=== PATIENT | male | born 1935 | race Caucasian/White ===

== ENCOUNTER 2022-05-07 13:13 | Inpatient (IN) | payer OTHER ==
--- OUTSIDE RECORDS SUMMARY | 2022-05-07 13:28 | XMS REPORT | Continuity of Care Document ---
:1935 Author Organization [facility] t Address [address] [place] [address] Care Team Providers Name Role Phone ANDRES CHRISTINA Primary Care Physician Unavailable Sonja Vale RN Attending Clinician Unavailable CHAITANYA HATCH Attending Clinician Unavailable Jamari Floyd MD Attending Clinician Chaitanya Hatch MD Attending Clinician MALIK GRANADOS Attending Clinician Unavailable Malik Granados MD Attending Clinician Yovani Bautista DO Attending Clinician YOVANI BAUTISTA Attending Clinician Unavailable CARIN SOLIS Attending Clinician Unavailable Beba Elizabeth RN Attending Clinician Unavailable JESSICA OWEN Attending Clinician Unavailable Garett Armas MD Attending Clinician Jessica Owen DO Attending Clinician MONICO MARIEE Attending Clinician Unavailable Monico Lucas Attending Clinician Morgan Lazar MD Attending Clinician Fahad Cano Attending Clinician FAHAD GRIGGS Attending Clinician Unavailable Bonny Latif RN Attending Clinician Veronica FIRING PIN GAUGER, Marlena R Attending Clinician GARETT ARMAS Attending Clinician Unavailable Doctor Unassigned, [place] Attending Clinician Unavailable Gramm FIRING PIN GAUGER, Donna A Attending Clinician DONNA GUNDERSON A Attending Clinician Unavailable CHAITANYA HATCH Admitting Clinician Unavailable Holden MUNOZ, Chaitanya Admitting Clinician MALIK GRANADOS Admitting Clinician Unavailable YOVANI BAUTISTA Admitting Clinician Unavailable CARIN SOLIS Admitting Clinician Unavailable JESSICA OWEN Admitting Clinician Unavailable Jessica Owen DO Admitting Clinician MONICO MARIEE Admitting Clinician Unavailable Cady MUNOZ, Morgan Admitting Clinician Garett Armas MD Admitting Clinician GARETT ARMAS Admitting Clinician Unavailable Payers Payer Name Policy Type Policy Number Effective Date Expiration Date S ource Problems Condition Condition Condition Status Onset Resolution Last Treating Co mments Source Name Details Category Date Date Treatment Clinician Date Dizziness Dizziness Disease Active Uni vers 7-26 ity of 00:00: [place] 00 Medical Branch Chronic Chronic Disease Active Univers atrial atrial 7-01 ity of fibrill[place] fibrill[place] 00 [place] Other Other Disease Active Univers chest pain chest pain 6-27 it y of 00:00: [place] 00 Medical Branch COVID-19 COVID-19 Disease Active Unive rs virus RNA virus RNA 6-27 ity of test test 00:00: [place] result result 00 Medical positive positive Branch at limit at limit of of detection detection Atrial Atrial Disease Active 2020-05 Univers fibrillati fibrillati 0-04 it y of on with on with 00:00: [place] RVR RVR 00 Medical Branch Atypical Atypical Disease Active Unive rs chest pain chest pain 2-04 it y of 00:00: [place] 00 Medical Branch Coronary Coronary Disease Active Unive rs artery artery 2-04 ity of disease disease 00:00: [place] involving involving 00 Medi [place] Branch 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 S/P CABG Disease Active Unive rs (coronary (coronary 2-04 ity of artery artery 00:00: [place] bypass bypass 00 Medical graft) graft) Branch Essential Essential Disease Active Uni vers hypertensi hypertensi 2-04 it y of on on 00:00: Medical Branch Dyslipidem Dyslipidem Disease Active U nivers ia ia 2-04 ity of 00:00: [place] [facility] Chronic Chronic Disease Active Univers 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:00: [place] failure failure 00 Medical Branch PAF PAF Disease Active Univers (paroxysma (paroxysma 2-04 it y of l atrial l atrial 00:00: [place] fibrillati fibrillati 00 Me dical on) on) Branch Pulmonary Pulmonary Disease Active Uni vers hypertensi hypertensi 2-04 it y of on on 00:00: Medical Branch 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) Bran ch 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 00:00: [place] carotid carotid 00 Medical arteries arteries Branch 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 00:00: [place] carotid carotid Medical arteries arteries Branch HF (heart HF (heart Disease Active Uni vers failure) failure) 2-03 ity of 00:00: [place] 00 Medical Branch Acute Acute Disease Active 2016-05 Univers exacerbati exacerbati 2-04 it y of on of CHF on of CHF 00:[place] (congestiv (congestiv 00 Me dical e heart e heart Branch failure) failure) Obesity Obesity Disease Active Univers (BMI (BMI 3-22 ity of 30-39.9) 30-39.9) 00:00: [place] [facility] Headache Headache Disease Active 2015-05 Unive rs 2-12 ity of 00:00: [place] 00 Medical Branch Transient Transient Disease Active 2015-05 Uni vers alteration alteration 2-12 it y of of of 00:00: [place] awareness awareness 00 [facility] Branch Allergies, Adverse Reactions, Alerts Allergy Allergy Status Severity Reaction(s) Onset Inactive Treating Comm ents Source Name Type Date Date Clinician LORATADI DRUG Active ITCHING Univers NE INGREDI 2-18 ity of 00:00: [place] 00 Medical Branch Loratadi Propensi Active Itching Unive rs ne ty to 2-18 ity of adverse 00:00: [place] reaction 00 Medical s Branch Morphine Propensi Active Other - See 2016-05 Headache Univers ty to comments 2-04 ity of adverse 00:00: [place] reaction 00 Medical s Branch Sulfa Propensi Active Nausea 2016-05 Univers (Sulfona ty to and/or 2-04 ity of mide adverse Vomiting 00:00: [place] Antibiot reaction 00 Medica l ics) s Branch MORPHINE DRUG Active Other-Cmnt 2016-05 Univ ers INGREDI 2-04 ity of 00:00: [place] 00 Medical Branch SULFA Drug Active N/V 2016-05 Univers (SULFONA Class 2-04 ity of MIDE 00:00: [place] ANTIBIOT 00 Medical ICS) Branch Sulfa Propensi Active Nausea 2016-05 Univers (Sulfona ty to and/or 2-04 ity of mide adverse Vomiting 00:00: [place] Antibiot reaction 00 Medica l ics) s Branch Social History Social Habit Start Date Stop Date Quantity Comments Source History of Current smoker University of tobacco use [place] [facility] History SDKY Food 2022-02-12 2022-02-12 1 Univers ity of Worry 00:00:00 00:00:00 [place] [facility] History SDOH Food 2022-02-12 2022-02-12 1 Univers ity of Scarcity 00:00:00 00:00:00 [place] [facility] History SDOH 2022-02-12 2022-02-12 2 University o f Transport Med 00:00:00 00:00:00 [place] Medic al Branch History SDOH 2022-02-12 2022-02-12 2 University o f Transport Non-Med 00:00[facility]00 [facility] 2022-01-13 2022-01-23 Not sure University of SARS-CoV-2 00:00:00 05:03:00 [facility] (event) [place] Alcohol intake 2022-01-23 2022-01-23 0 /d University of 00:00:00 00:00:00 [facility] Tobacco use and 2017-10-06 2017-10-06 Smokeless tobacco Un iversity of exposure 00:00:00 00:00:00 non-user [facility] Sex Ass[birth year] At [birth year] Universit y of 00:00:00 00:00:00 [facility] Smoking Status Start Date Stop Date Source Ex-smoker 2017-10-06 00:00:00 2017-10-06 00:00:00 [facility] Medications Ordered Filled Start Stop Current Ordering Indication Dosage Frequency Signature Comments Components Source Medication Medication Date Date Medication? Clinician (SIG) Name Name rosuvastati Yes 5mg 5 mg, Unive rs n (CRESTOR) - Oral, QHS, it y of tablet 5 mg 02:00: First dose 00 on [facility] 02/11/22 at [place] 2100, Until Discontinu ed, Routine rivaroxaban 2022- Yes [id number] 20mg Take 1 Uni vers (XARELTO) 02-12 tablet by ity of 20 mg 00:00: 04:59 mouth in [place] tablet 00 :00 the Medical morning. [place] Indication s: prevention of thromboemb olism in paroxysmal atrial fibrillati on rivaroxaban 2022- Yes [id number] 20mg Take 1 Uni vers (XARELTO) 02-12 tablet by ity of 20 mg 00:00: 04:59 mouth in [place] tablet 00 :00 the Medical morning. Branch Indication s: prevention of thromboemb olism in paroxysmal atrial fibrillati on levothyroxi 2021- Yes [id number] 50ug Take 1 Univers ne 50 mcg 02-12 tablet by ity of tablet 00:00: 05:59 mouth [place] 00 :00 every Medical morning [place] for 90 days. pantoprazol 2021- Yes [id number] 40mg Take 1 Univers e 40 mg EC 02-12 tablet by ity of tablet 00:00: 05:59 mouth in [place] 00 :00 the Medical morning Branch for 90 days. levothyroxi 2021- Yes [id number] 50ug Take 1 Univers ne 50 mcg 02-12 tablet by ity of tablet 00:00: 05:59 mouth [place] 00 :00 every Medical morning Branch for 90 days. pantoprazol 2021- Yes [id number] 40mg Take 1 Univers e 40 mg EC 02-12 tablet by ity of tablet 00:00: 05:59 mouth in [place] 00 :00 the Medical morning Branch for 90 days. ALPRAZOLAM Yes 1mg Take 1 mg [place] (XANAX XR 9-20 by mouth ity of ORAL) 19:05: daily. [place] 35 Medical Branch Ascorbic 0 Yes 1000mg Take 1,000 U nivers Acid 1,000 9-20 mg by ity of mg TbSR 19:05: mouth 2 [place] 35 (two) Medical times Branch daily. Cholecalcif Yes 400U Take 400 [place] joanne, 9-20 Units by ity of Vitamin D3, 19:05: mouth [place] 400 unit 35 daily. Medical capsule Branch cyanocobala Yes 5000ug Take 5,000 Univers min, 9-20 mcg by ity of vitamin 19:05: mouth [place] B-12, 5,000 35 daily. Medica l mcg TbDL Branch digoxin 125 Yes 125ug Take 125 U nivers mcg tablet 9-20 mcg by ity of 19:05: mouth [place] 35 daily. Medical Branch magnesium Yes 400mg Take 400 Uni vers oxide 400 9-20 mg by ity of mg tablet 19:05: mouth [place] 35 daily. Medical Branch tamsulosin Yes .4mg Take 0.4 Uni vers 0.4 mg 24 9-20 mg by ity of hr capsule 19:05: mouth [place] 35 daily. Medical Branch traMADOL 50 0 Yes 100mg Take 100 U nivers mg tablet 9-20 mg by ity of 19:05: mouth [place] 35 every 8 Medical (eight) Branch hours as needed for Pain (scale 4-6) or Pain (scale 7-10). May take 1 to 2 tablets Q8H as needed for pain glimepiride 0 Yes 1mg Take 1 mg U nivers 1 mg tablet 9-20 by mouth ity of 19:05: in the [place] [address] morning Medical and 1 mg Branch at noon and 1 mg in the evening. Take with meals. gabapentin Yes 100mg Take 100 [place] 100 mg 9-20 mg by ity of capsule 19:05: mouth 2 [place] [address] (two) Medical times Branch daily. torsemide Yes Take by Unive rs 100 mg 9-20 mouth. ity of tablet 19:05: [place] [facility] Branch lisinopriL Yes 10mg Take 10 mg U nivers 10 mg 9-20 by mouth ity of tablet 19:05: in the [place] [address] morning. Medical Branch isosorbide Yes 30mg Take 30 mg U nivers mononitrate 9-20 by mouth. ity of 30 mg 24 hr 19:05: [place] tablet Medical Branch ALPRAZOLAM Yes 1mg Take 1 mg [place] (XANAX XR 9-20 by mouth ity of ORAL) 19:05: daily. [place] [address] Medical Branch Ascorbic Yes 1000mg Take 1,000 U nivers Acid 1,000 9-20 mg by ity of mg TbSR 19:05: mouth 2 [place] [address] (two) Medical times Branch daily. Cholecalcif Yes 400U Take 400 [place] joanne, 9-20 Units by ity of Vitamin D3, 19:05: mouth [place] 400 unit 35 daily. Medical capsule Branch cyanocobala Yes 5000ug Take 5,000 Univers min, 9-20 mcg by ity of vitamin 19:05: mouth [place] B-12, 5,000 35 daily. Medica l mcg TbDL Branch digoxin 125 Yes 125ug Take 125 U nivers mcg tablet 9-20 mcg by ity of 19:05: mouth [place] 35 daily. Medical Branch magnesium Yes 400mg Take 400 Uni vers oxide 400 9-20 mg by ity of mg tablet 19:05: mouth [place] 35 daily. Medical Branch tamsulosin Yes .4mg Take 0.4 Uni vers 0.4 mg 24 9-20 mg by ity of hr capsule 19:05: mouth [place] 35 daily. Medical Branch traMADOL 50 Yes 100mg Take 100 U nivers mg tablet 9-20 mg by ity of 19:05: mouth [place] [address] every 8 Medical (eight) Branch hours as needed for Pain (scale 4-6) or Pain (scale 7-10). May take 1 to 2 tablets Q8H as needed for pain glimepiride 0 Yes 1mg Take 1 mg U nivers 1 mg tablet -20 by mouth ity of 19:05: in the [place] [address] morning Medical and 1 mg Branch at noon and 1 mg in the evening. Take with meals. gabapentin 0 Yes 100mg Take 100 [place] 100 mg 9-20 mg by ity of capsule 19:05: mouth 2 [place] [address] (two) Medical times Branch daily. torsemide Yes Take by [facility] rs 100 mg -20 mouth. ity of tablet 19:05: [place] [address] Medical Branch lisinopriL Yes 10mg Take 10 mg U nivers 10 mg -20 by mouth ity of tablet 19:05: in the [place] [address] morning. Medical Branch isosorbide Yes 30mg Take 30 mg U nivers mononitrate 20 by mouth. ity of 30 mg 24 hr 19:05: [place] [address] Medical Branch NaCl 0.9% 2021- No 500mL at 250 Univ ers (NS) bolus 02-11 mL/hr, 500 it y of infusion 17:45: 17:43 mL, IV [place] 500 mL 00 :48 Piggyback, Medical ONCE, 1 Branch dose, On Thu02/11/22 at 1245, STAT nitroglycer Yes .3mg 0.3 mg, Uni vers in 02-11 Sublingual ity of (NITROSTAT) 16:59: , Q5MIN [place] sublingual 43 PRN, Medical tablet 0.3 Starting Branc h mg on Thu02/11/22 at 1159, Until Discontinu ed, Routine, Chest pain levothyroxi 2021- No 50ug Take 50 [place] ne 50 mcg 02-11 mcg by ity of tablet 16:27: 00:00 mouth [place] 03 :00 every Medical morning. Branch pantoprazol 2021- No 40mg Take 40 mg Univers e 40 mg EC 02-11 by mouth ity of tablet 16:27: 00:00 daily. [place] 03 :00 Medical Branch rosuvastati No 5mg Take 5 mg Univers n 5 mg 02-11 by mouth ity of tablet 16:27: 00:00 at [place] 03 :00 bedtime. Medical Branch rivaroxaban No 20mg Take 20 mg Univers (XARELTO) 02-11 by mouth. ity of 20 mg 16:27: 00:00 [place] tablet 03 :00 Medical Branch aspirin Yes 81mg 81 mg, Univers chewable 02-11 Oral, ity of tablet 81 14:00: DAILY, [place] mg 00 First dose Medical on [facility] 02/11/22 at 0900, Until Discontinu ed, Routine rivaroxaban Yes 20mg 20 mg, Univ ers (XARELTO) 02-11 Oral, ity of tablet 20 14:00: DAILY, [place] mg 00 First dose Medical on [facility] 02/11/22 at 0900, Until Discontinu ed, Routine pantoprazol Yes 40mg 40 mg, Univ ers e 02-11 Oral, ity of (PROTONIX) 14:00: DAILY, [place] EC tablet 00 First dose Medi anabell 40 mg on [facility] 02/11/22 at 0900, Until Discontinu ed, Routine digoxin Yes 125ug 125 mcg, Unive rs (LANOXIN) 02-11 Oral, ity of tablet 125 14:00: DAILY, [place] mcg 00 First dose Medical on [facility] 02/11/22 at 0900, Until Discontinu ed, Routine aspirin No 325mg 325 mg, Unive rs tablet 325 02-11 Oral, ity of mg 14:00: 07:17 DAILY, [place] 00 :21 First dose Medical on [facility] 02/11/22 at 0900, Until Discontinu ed, Routine Sliding Yes Subcutaneo Univ ers Scale 02-11 us, TID ity of Insulin - 13:00: MEALS+HS, [place] Lispro 00 First dose Medical (HumaLOG) + on [facility]sbg 02/11/22 at Testing 0800, Until Discontinu ed, Routine levothyroxi Yes 50ug 50 mcg, Uni vers ne 02-11 Oral, ity of (SYNTHROID) 11:00: QAM-0600, [place] tablet 50 00 First dose Medi anabell mcg on Thu02/11/22 at 0600, Until Discontinu ed, Routine NaCl 0.9% 2021- No 500mL at 999 [facility] ers (NS) bolus 02-1120 mL/hr, 500 it y of infusion 08:45: 10:28 mL, IV [place] 500 mL 00 :00 Piggyback, Medical ONCE, 1 Branch dose, On Thu02/11/22 at 0345, STAT acetaminoph Yes 650mg 650 mg, [place] en 02-11 Oral, ity of (TYLENOL) 05:16: Q6HPRN, [place] tablet 650 18 Starting Medic al mg on Thu02/11/22 at 0016, Until Discontinu ed, Routine, Pain (scale 1-3) iopamidol 2021- No [id number] 80mL 80 mL, U nivers (ISOVUE 02-11 Intravenou ity o f 370-500 mL) 02:00: 02:00 s, ONCE, 1 [place] injection 00 :00 dose, On Medica l 80 mL Thu02/10/22 at 2100, Routine FUROSEMIDE 2021- No 40mg Take 40 mg Univers ORAL 02-11 by mouth 2 ity of 01:07: 00:00 (two) [place] 48 :00 times Medical daily. Branch NaCl 0.9% 2021- No 250mL at 100 [facility] ers (NS) IV 02-11-20 mL/hr, IV ity of infusion 00:45: 15:06 Infusion, [place] 250 mL 00 :15 CONTINUOUS Medical , Starting Branch on Thu02/10/22 at 1945, Until Thu02/11/22 at 1006, Routine nitroglycer Yes [id number] .3mg Place 1 Univers in 0.3 mg 9-20 tablet ity of sublingual 00:00: under the [place] tablet 00 tongue Medical every 5 Branch (five) minutes as needed for Chest pain for up to 90 doses. nitroglycer Yes [id number] .3mg Place 1 Univers in 0.3 mg 9-20 tablet ity of sublingual 00:00: under the [place] tablet 00 tongue Medical every 5 Branch (five) minutes as needed for Chest pain for up to 90 doses. rosuvastati 2021- Yes [id number] 5mg Take 1 Univers n 5 mg 9-20 12-20 tablet by ity of tablet 00:00: 05:59 mouth at [place] 00 :00 bedtime Medical for 90 Branch days. rosuvastati 2021- Yes [id number] 5mg Take 1 Univers n 5 mg 9-20 12-20 tablet by ity of tablet 00:00: 05:59 mouth at [place] 00 :00 bedtime Medical for 90 Branch days. FENTanyl PF 2021- No 25ug 25 mcg, [place] (SUBLIMAZE 02-10 Slow IV ity o f (PF)) 23:45: 00:12 Push, [place] injection 00 :00 ONCE, 1 Medical 25 mcg dose, On Branch [facility] 02/10/22 at 1845, STAT furosemide No 40mg 40 mg, IV U nivers (LASIX) 01-23 Push, ity of injection 11:30: 11:26 ONCE, 1 [place] 40 mg 00 :00 dose, On [facility] 01/23/22 Branch at 0630, JOCELYN nirmatrelvi Yes [id number] 2{tbl} Take 2 Univers r-ritonavir 01-23 [id number] tablets by i ty of (PAXLOVID, 00:00: mouth in [place] EUA,) 00 the Medical 150-100 mg morning Branch tablet and 2 tablets in the evening. nirmatrelvi 2021- No [id number] 2{tbl} Take 2 Univers r-ritonavir 01-23 [id number] tablets by ity of (PAXLOVID, 00:00: 00:00 [place] EUA,) 00 :00 the Medical 150-100 mg morning Branch tablet and 2 tablets in the evening. ibuprofen 2021- No 600mg 600 mg, Uni vers (IBU) 01-06 Oral, ity of tablet 600 11:30: 11:23 ONCE, 1 [place] mg 00 :00 dose, On Medical [facility] 01/06/22 at 0630, JOCELYN iopamidol 2021- No [id number] 70mL 70 mL, Univers (ISOVUE 12-18 Intravenou ity o f 370-500 mL) 01:30: 01:30 s, ONCE, 1 [place] injection 00 :00 dose, On Medica l 70 mL Tue Branch 12/17/21 at 2030, Routine ALPRAZOLAM Yes 1mg Take 1 mg [place] (XANAX XR 7-01 by mouth ity of ORAL) 12:24: daily. [place] [address] Medical Branch Ascorbic Yes 1000mg Take 1,000 U nivers Acid 1,000 7-01 mg by ity of mg TbSR 12:24: mouth 2 [place] [address] (two) Medical times Branch daily. Cholecalcif Yes 400U Take 400 [place] joanne, 7-01 Units by ity of Vitamin D3, 12:24: mouth [place] 400 unit 33 daily. Medical capsule Branch cyanocobala Yes 5000ug Take 5,000 Univers min, 7-01 mcg by ity of vitamin 12:24: mouth [place] B-12, 5,000 33 daily. Medica l mcg TbDL Branch digoxin 125 Yes 125ug Take 125 U nivers mcg tablet 7-01 mcg by ity of 12:24: mouth [place] 33 daily. Medical Branch levothyroxi Yes 50ug Take 50 Uni vers ne 50 mcg 7-01 mcg by ity of tablet 12:24: mouth [place] [address] every Medical morning. Branch magnesium Yes 400mg Take 400 Uni vers oxide 400 7-01 mg by ity of mg tablet 12:24: mouth [place] 33 daily. Medical Branch pantoprazol Yes 40mg Take 40 mg Univers e 40 mg EC 7-01 by mouth ity o f tablet 12:24: daily. [place] [address] Medical Branch tamsulosin 0 Yes .4mg Take 0.4 Uni vers 0.4 mg 24 7-01 mg by ity of hr capsule 12:24: mouth [place] 33 daily. Medical Branch traMADOL 50 Yes 100mg Take 100 U nivers mg tablet 7-01 mg by ity of 12:24: mouth [place] 33 every 8 Medical (eight) Branch hours as needed for Pain (scale 4-6) or Pain (scale 7-10). May take 1 to 2 tablets Q8H as needed for pain glimepiride 0 Yes 1mg Take 1 mg U nivers 1 mg tablet 7-01 by mouth 2 it y of 12:24: (two) [place] [address] times Medical daily with Branch meals. gabapentin Yes 100mg Take 100 [place] 100 mg 7-01 mg by ity of capsule 12:24: mouth 2 [place] [address] (two) Medical times Branch daily. rosuvastati Yes 5mg Take 5 mg U nivers n 5 mg 7-01 by mouth ity of tablet 12:24: at [place] [address] bedtime. Medical Branch FUROSEMIDE Yes 40mg Take 40 mg U nivers ORAL 7-01 by mouth 2 ity of 12:24: (two) [place] [address] times Medical daily. Branch ALPRAZOLAM Yes 1mg Take 1 mg [place] (XANAX XR 7-01 by mouth ity of ORAL) 12:24: daily. [place] [address] Medical Branch Ascorbic 0 Yes 1000mg Take 1,000 U nivers Acid 1,000 7-01 mg by ity of mg TbSR 12:24: mouth 2 [place] [address] (two) Medical times Branch daily. Cholecalcif Yes 400U Take 400 [place] joanne, 7-01 Units by ity of Vitamin D3, 12:24: mouth [place] 400 unit 33 daily. Medical capsule Branch cyanocobala Yes 5000ug Take 5,000 Univers min, 7-01 mcg by ity of vitamin 12:24: mouth [place] B-12, 5,000 33 daily. Medica l mcg TbDL Branch digoxin 125 0 Yes 125ug Take 125 U nivers mcg tablet 7-01 mcg by ity of 12:24: mouth [place] [address] daily. Medical Branch levothyroxi Yes 50ug Take 50 Uni vers ne 50 mcg 7-01 mcg by ity of tablet 12:24: mouth [place] [address] every Medical morning. Branch magnesium Yes 400mg Take 400 Uni vers oxide 400 7-01 mg by ity of mg tablet 12:24: mouth [place] [address] daily. Medical Branch pantoprazol 2022-0 Yes 40mg Take 40 mg Univers e 40 mg EC 7-01 by mouth ity o f tablet 12:24: daily. [place] [address] Medical Branch tamsulosin 0 Yes .4mg Take 0.4 Uni vers 0.4 mg 24 7-01 mg by ity of hr capsule 12:24: mouth [place] [address] daily. Medical Branch traMADOL 50 0 Yes 100mg Take 100 U nivers mg tablet 7-01 mg by ity of 12:24: mouth [place] [address] every 8 Medical (eight) Branch hours as needed for Pain (scale 4-6) or Pain (scale 7-10). May take 1 to 2 tablets Q8H as needed for pain glimepiride 0 Yes 1mg Take 1 mg U nivers 1 mg tablet 7-01 by mouth 2 it y of 12:24: (two) [place] [address] times Medical daily with Branch meals. gabapentin Yes 100mg Take 100 [place] 100 mg 7-01 mg by ity of capsule 12:24: mouth 2 [place] [address] (two) Medical times [place] daily. rosuvastati Yes 5mg Take 5 mg U nivers n 5 mg 7-01 by mouth ity of tablet 12:24: at [place] [address] bedtime. Medical Branch FUROSEMIDE Yes 40mg Take 40 mg U nivers ORAL 7-01 by mouth 2 ity of 12:24: (two) [place] [address] times Medical daily. Branch ALPRAZOLAM Yes 1mg Take 1 mg [place] (XANAX XR 7-01 by mouth ity of ORAL) 12:24: daily. [place] [address] Medical Branch Ascorbic Yes 1000mg Take 1,000 U nivers Acid 1,000 7-01 mg by ity of mg TbSR 12:24: mouth 2 [place] [address] (two) Medical times [place] daily. Cholecalcif Yes 400U Take 400 [place] joanne, 7-01 Units by ity of Vitamin D3, 12:24: mouth [place] 400 unit 33 daily. Medical capsule Branch cyanocobala Yes 5000ug Take 5,000 Univers min, 7-01 mcg by ity of vitamin 12:24: mouth [place] B-12, 5,000 33 daily. Medica l mcg TbDL Branch digoxin 125 2022-0 Yes 125ug Take 125 U nivers mcg tablet 7-01 mcg by ity of 12:24: mouth [place] [address] daily. Medical Branch levothyroxi 0 Yes 50ug Take 50 Uni vers ne 50 mcg 7-01 mcg by ity of tablet 12:24: mouth [place] [address] every Medical morning. Branch magnesium 0 Yes 400mg Take 400 Uni vers oxide 400 7-01 mg by ity of mg tablet 12:24: mouth [place] [address] daily. Medical Branch pantoprazol 0 Yes 40mg Take 40 mg Univers e 40 mg EC 7-01 by mouth ity o f tablet 12:24: daily. [place] [address] Medical Branch tamsulosin 0 Yes .4mg Take 0.4 Uni vers 0.4 mg 24 7-01 mg by ity of hr capsule 12:24: mouth [place] [address] daily. Medical Branch traMADOL 50 0 Yes 100mg Take 100 U nivers mg tablet 7-01 mg by ity of 12:24: mouth [place] [address] every 8 Medical (eight) Branch hours as needed for Pain (scale 4-6) or Pain (scale 7-10). May take 1 to 2 tablets Q8H as needed for pain glimepiride 0 Yes 1mg Take 1 mg U nivers 1 mg tablet 7-01 by mouth 2 it y of 12:24: (two) [place] [address] times [facility] daily with Branch meals. gabapentin 0 Yes 100mg Take 100 [place] 100 mg 7-01 mg by ity of capsule 12:24: mouth 2 [place] [address] (two) Medical times [place] daily. rosuvastati 0 Yes 5mg Take 5 mg U nivers n 5 mg 7-01 by mouth ity of tablet 12:24: at [place] [address] bedtime. Medical Branch FUROSEMIDE 0 Yes 40mg Take 40 mg U nivers ORAL 7-01 by mouth 2 ity of 12:24: (two) [place] [address] times Medical daily. Branch ALPRAZOLAM 0 Yes 1mg Take 1 mg [place] (XANAX XR 7-01 by mouth ity of ORAL) 12:24: daily. [place] [address] Medical Branch Ascorbic 2021-0 Yes 1000mg Take 1,000 U nivers Acid 1,000 7-01 mg by ity of mg TbSR 12:24: mouth 2 [place] [address] (two) Medical times Branch daily. Cholecalcif Yes 400U Take 400 [place] joanne, 7-01 Units by ity of Vitamin D3, 12:24: mouth [place] 400 unit 33 daily. Medical capsule Branch cyanocobala Yes 5000ug Take 5,000 Univers min, 7-01 mcg by ity of vitamin 12:24: mouth [place] B-12, 5,000 33 daily. Medica l mcg TbDL Branch digoxin 125 0 Yes 125ug Take 125 U nivers mcg tablet 7-01 mcg by ity of 12:24: mouth [place] 33 daily. Medical Branch levothyroxi Yes 50ug Take 50 Uni vers ne 50 mcg 7-01 mcg by ity of tablet 12:24: mouth [place] [address] every Medical morning. Branch magnesium Yes 400mg Take 400 Uni vers oxide 400 7-01 mg by ity of mg tablet 12:24: mouth [place] [address] daily. Medical Branch pantoprazol Yes 40mg Take 40 mg Univers e 40 mg EC 7-01 by mouth ity o f tablet 12:24: daily. [place] [address] Medical Branch tamsulosin 0 Yes .4mg Take 0.4 Uni vers 0.4 mg 24 7-01 mg by ity of hr capsule 12:24: mouth [place] [address] daily. Medical Branch traMADOL 50 Yes 100mg Take 100 U nivers mg tablet 7-01 mg by ity of 12:24: mouth [place] [address] every 8 Medical (eight) Branch hours as needed for Pain (scale 4-6) or Pain (scale 7-10). May take 1 to 2 tablets Q8H as needed for pain glimepiride 0 Yes 1mg Take 1 mg U nivers 1 mg tablet 7-01 by mouth 2 it y of 12:24: (two) [place] [address] times Medical daily with Branch meals. gabapentin 0 Yes 100mg Take 100 [place] 100 mg 7-01 mg by ity of capsule 12:24: mouth 2 [place] [address] (two) Medical times Branch daily. rosuvastati Yes 5mg Take 5 mg U nivers n 5 mg 7-01 by mouth ity of tablet 12:24: at [place] [address] bedtime. Medical Branch FUROSEMIDE 0 Yes 40mg Take 40 mg U nivers ORAL 7-01 by mouth 2 ity of 12:24: (two) [place] 33 times Medical daily. Branch ALPRAZOLAM Yes 1mg Take 1 mg [place] (XANAX XR 7-01 by mouth ity of ORAL) 12:24: daily. [place] [address] Medical Branch Ascorbic 0 Yes 1000mg Take 1,000 U nivers Acid 1,000 7-01 mg by ity of mg TbSR 12:24: mouth 2 [place] 33 (two) Medical times Branch daily. Cholecalcif Yes 400U Take 400 [place] joanne, 7-01 Units by ity of Vitamin D3, 12:24: mouth [place] 400 unit 33 daily. Medical capsule Branch cyanocobala Yes 5000ug Take 5,000 Univers min, 7-01 mcg by ity of vitamin 12:24: mouth [place] B-12, 5,000 33 daily. Medica l mcg TbDL Branch digoxin 125 Yes 125ug Take 125 U nivers mcg tablet 7-01 mcg by ity of 12:24: mouth [place] [address] daily. Medical Branch levothyroxi Yes 50ug Take 50 Uni vers ne 50 mcg 7-01 mcg by ity of tablet 12:24: mouth [place] [address] every Medical morning. Branch magnesium Yes 400mg Take 400 Uni vers oxide 400 7-01 mg by ity of mg tablet 12:24: mouth [place] [address] daily. Medical Branch pantoprazol Yes 40mg Take 40 mg Univers e 40 mg EC 7-01 by mouth ity o f tablet 12:24: daily. [place] [address] Medical Branch tamsulosin 0 Yes .4mg Take 0.4 Uni vers 0.4 mg 24 7-01 mg by ity of hr capsule 12:24: mouth [place] [address] daily. Medical Branch traMADOL 50 0 Yes 100mg Take 100 U nivers mg tablet 7-01 mg by ity of 12:24: mouth [place] [address] every 8 Medical (eight) Branch hours as needed for Pain (scale 4-6) or Pain (scale 7-10). May take 1 to 2 tablets Q8H as needed for pain glimepiride 0 Yes 1mg Take 1 mg U nivers 1 mg tablet 7-01 by mouth 2 it y of 12:24: (two) [place] [address] times Medical daily with [place] meals. gabapentin Yes 100mg Take 100 [place] 100 mg 701 mg by ity of capsule 12:24: mouth 2 [place] [address] (two) Medical times [place] daily. rosuvastati Yes 5mg Take 5 mg U nivers n 5 mg 11-22 by mouth ity of tablet 12:24: at [place] [address] bedtime. Medical Branch FUROSEMIDE Yes 40mg Take 40 mg U nivers ORAL 11-22 by mouth 2 ity of 12:24: (two) [place] [address] times Medical daily. Branch rivaroxaban 2021- No 20mg Take 20 mg Univers (XARELTO) 11-22 by mouth. ity of 20 mg 10:55: 00:00 [place] tablet 32 :00 Medical Branch DIGOXIN, 2021- No 10mg Take 10 mg [place] BULK, MISC 11-22 by mouth ity of 10:55: 00:00 daily. [place] 32 :00 [facility] Branch lisinopriL 2021- No 10mg Take 10 mg Univers 10 mg 11-22 by mouth ity of tablet 10:55: 00:00 daily. [place] 32 :00 [facility] Branch metoprolol 2021- No 50mg Take 50 mg Univers tartrate 50 11-22 by mouth 2 i ty of mg tablet 10:55: 00:00 (two) [place] 32 :00 times Medical daily. Branch atorvastati 2021- No 20mg Take 20 mg Univers n 20 mg 11-22 by mouth ity of tablet 10:55: 00:00 daily. [place] 32 :00 [facility] Branch tamsulosin Yes .4mg 0.4 mg, Univ ers (FLOMAX) 11-22 Oral, QHS, ity o f capsule 0.4 02:00: First dose [place] mg 00 on [facility] Medical 11/21/21 at [place] 2100, Until Discontinu ed, Routine lisinopriL 2021- No [id number] 10mg Take 2 Univers 5 mg tablet 11-22 tablets by i ty of 00:00: 04:59 mouth [place] 00 :00 daily for Medical 30 days. [place] lisinopriL 2021- No [id number] 10mg Take 2 Univers 5 mg tablet 11-22 tablets by i ty of 00:00: 04:59 mouth [place] 00 :00 daily for Medical 30 days. [place] lisinopriL 2021- No [id number] 10mg Take 2 Univers 5 mg tablet 11-22 tablets by i ty of 00:00: 04:59 mouth [place] 00 :00 daily for Medical 30 days. [place] cyanocobala 2021- No 1000ug 1,000 mcg, Univers min 11-2107 Subcutaneo ity of (VITAMIN 16:15: 13:59 us, DAILY, [place] B12) 00 :00 7 doses, Medical injection First dose Bran ch 1,000 mcg on Thu11/21/21 at 1115, Last dose on Thu11/27/21 at 0900, Routine ergocalcife 2021- No [id number] 50,000 U nivers rol 11-21- Units, ity of (vitamin 16:15: 17:24 Oral, [place] d2) 00 :00 QWEEKLY, 1 Medical (CALCIFEROL dose, [place] ) capsule First dose 50,000 on [place] Units 11/21/21 at 1145, Routine bisacodyL Yes 10mg 10 mg, Univer s (DULCOLAX) 11-20 Rectal, ity of suppository 20:10: QDAILYPRN, [place] 10 mg 49 Starting Medical on Thu Branch 11/20/21 at 1510, Until Discontinu ed, Routine, Constipati on cholecalcif Yes 1000U 1,000 Univ ers joanne 11-20 Units, ity of (vitamin 14:00: Oral, [place] D3) tablet 00 DAILY, Medical 1,000 Units First dose Br anch on Thu11/20/21 at 0900, Until Discontinu ed, Routine ascorbic Yes 500mg 500 mg, Unive rs acid 11-20 Oral, ity of (vitamin C) 14:00: DAILY, [place] (VITAMIN C) 00 First dose Me dical tablet 500 on Thu Branch mg 11/20/21 at 0900, Until Discontinu ed, Routine magnesium Yes 400mg 400 mg, Univ ers oxide 11-20 Oral, ity of (MAG-OX 14:00: DAILY, [place] 400) tablet 00 First dose Me dical 400 mg (after Branch last modificati on) on Thu11/20/21 at 0900, Until Discontinu ed, Routine zinc Yes 50mg 50 mg, Univers sulfate 11-19 Oral, TID, ity of (ORAZINC) 19:00: First dose [place] capsule 50 00 on Thu Medical mg 11/19/21 at Branch 1400, Until Discontinu ed, Routine dexamethaso 2021- No 6mg 6 mg, Univ ers ne sod phos 11-19 07-08 Intravenou i ty of PF 18:30: 16:59 s, QNOON, [place] injection 6 00 :00 10 doses, Med ical mg First dose Branch on Thu11/19/21 at 1330, Last dose on Thu11/28/21 at 1200, 1 mL lidocaine Yes 15mL 15 mL, Univer s 2% viscous 11-19 Oral, ity of (LIDOCAINE 18:09: Q6HPRN, [place] VISCOUS) 2 08 Starting Medic al % solution on Thu 15 mL 11/19/21 at 1309, Until Discontinu ed, Routine, Oral mucosal pain levothyroxi Yes 50ug 50 mcg, Uni vers ne 11-19 Oral, ity of (SYNTHROID) 11:00: QAM-0600, [place] tablet 50 00 First dose Medi anabell mcg on Thu11/19/21 at 0600, Until Discontinu ed, Routine rosuvastati Yes 10mg 10 mg, Univ ers n (CRESTOR) 11-19 Oral, QHS, it y of tablet 10 02:00: First dose [place] mg 00 on Thu11/18/21 at Branch 2100, Until Discontinu ed, Routine traMADoL 0 Yes 100mg 100 mg, Unive rs (ULTRAM) 11-18 Oral, ity of tablet 100 19:13: Q6HPRN, [place] mg 45 Starting Medical on Thu Branch 11/18/21 at 1413, Until Discontinu ed, Routine, Pain (scale 7-10) traMADoL 2022-0 Yes 50mg 50 mg, Univers (ULTRAM) 11-18 Oral, ity of tablet 50 19:13: Q6HPRN, [place] mg 24 Starting Medical on Thu Branch 11/18/21 at 1413, Until Discontinu ed, Routine, Pain (scale 4-6) acetaminoph 0 Yes 650mg 650 mg, [place] en 11-18 Oral, ity of (TYLENOL) 19:13: Q6HPRN, [place] tablet 650 13 Starting Medic al mg on Thu11/18/21 at 1413, Until Discontinu ed, Routine, Pain (scale 1-3), Temp > 38.5 C iron 2021- No 300mg 300 mg, IV Unive rs sucrose 11-18 Infusion, ity of (VENOFER) 17:15: 21:24 ONCE, [place] 300 mg in 00 :00 Administer Medi anabell NaCl 0.9% over 2.5 Branch (NS) 250 mL Hours, On infusion Thu11/18/21 at 1215, For 1 dose NaCl 0.9% 2021- No 1000mL at 125 Uni vers (NS) IV 11-18 mL/hr, IV ity of infusion 17:15: 16:22 Infusion, [place] 1,000 mL 00 :00 ONCE, 1 Medical dose, On Branch Thu11/18/21 at 1215, Routine pantoprazol Yes 40mg 40 mg, Univ ers e 11-18 Oral, ity of (PROTONIX) 14:00: DAILY, [place] EC tablet 00 First dose Medi anabell 40 mg on Thu11/18/21 at 0900, Until Discontinu ed, Routine digoxin 0 Yes 125ug 125 mcg, Unive rs (LANOXIN) 11-18 Oral, ity of tablet 125 14:00: DAILY, [place] mcg 00 First dose Medical on Thu11/18/21 at 0900, Until Discontinu ed, Routine isosorbide 0 Yes 15mg 15 mg, Unive rs mononitrate 11-18 Oral, ity of (IMDUR) 24 14:00: DAILY, [place] hr tablet 00 First dose Medi anabell 15 mg on Thu Branch 11/18/21 at 0900, Until Discontinu ed, Routine glipiZIDE 0 2022- No 5mg 5 mg, Univer s (GLUCOTROL) 11-18 Oral, ity of tablet 5 mg 14:00: 18:19 DAILY, [place] 00 :49 First dose Medical on [facility] Branch 11/18/21 at 0900, Until Discontinu ed, Routine spironolact No 12.5mg 12.5 mg, Univers one 11-18 Oral, ity of (ALDACTONE) 14:00: 16:13 DAILY, [place] tablet 12.5 00 :25 First dose Me dical mg on [facility] Branch 11/18/21 at 0900, Until Discontinu ed, Routine furosemide No 40mg 40 mg, [facility] ers (LASIX) 11-18 Oral, ity of tablet 40 14:00: 16:13 QAM+PM, [place] mg 00 :19 First dose Medical on [facility] Branch 11/18/21 at 0900, Until Discontinu ed, Routine azithromyci No 500mg 500 mg, IV Univers n 11-18 Piggyback, ity of (ZITHROMAX) 13:30: 18:17 Q24H ABX, [place] 500 mg in 00 :58 First dose Medi anabell NaCl 0.9% on [facility] (NS) 250 mL 11/18/21 at VIAL-MATE 0830, IV Until piggyback Discontinu ed, Administer over 60 Minutes, 250 mL
Reas on for Anti-Infec tive: Empiric Therapy for Suspected Infection< br>Empiric Therapy Site: Respirator y
Durat ion of therapy: 7 days Sliding Yes Subcutaneo [facility] ers Scale 11-18 us, TID ity of Insulin - 13:00: MEALS, [place] Lispro 00 First dose Medical (HumaLOG) + on [facility] Branch Fsbg 11/18/21 at Testing 0800, Until Discontinu ed, Routine apixaban Yes 5mg 5 mg, Univers (ELIQUIS) 11-18 Oral, BID, ity of tablet 5 mg 13:00: First dose [place] 00 on [facility] Medical 11/18/21 at Branch 0800, Until Discontinu ed, Routine
Indicatio ns: Non-Valvul ar Atrial Fibrillati on gabapentin 0 Yes 100mg 100 mg, Uni vers (NEURONTIN) 11-18 Oral, TID, it y of capsule 100 13:00: First dose [place] mg 00 on [facility] 11/18/21 at Branch 0800, Until Discontinu ed, Routine metoprolol 0 Yes 50mg 50 mg, Unive rs succinate 11-18 Oral, BID, ity of XL (TOPROL 13:00: First dose [place] XL) tablet 00 on [facility] Medical 50 mg 11/18/21 at Branch 0800, Until Discontinu ed, Routine magnesium 0 202- No 400mg 400 mg, Uni vers oxide 11-18 06-28 Oral, BID, ity of (MAG-OX 13:00: 16:50 First dose [place] 400) tablet 00 :44 on [facility] Medica l 400 mg 11/18/21 at Branch 0800, Until Discontinu ed, Routine ondansetron 0 Yes 4mg 4 mg, Slow Univers (ZOFRAN 11-18 IV Push, ity of (PF)) 12:31: Q6HPRN, [place] injection 4 32 Starting Medi anabell mg on [facility] 11/18/21 at 0731, Until Discontinu ed, Routine, Nausea and Vomiting (N/V) sennosides Yes 8.6mg 8.6 mg, Uni vers (SENOKOT) 11-18 Oral, BID, ity of tablet 8.6 12:30: First dose [place] mg 00 on [facility] 11/18/21 at Branch 0730, Until Discontinu ed, Routine docusate 0 Yes 100mg 100 mg, Unive rs (COLACE) 11-18 Oral, BID, ity o f capsule 100 12:30: First dose [place] mg 00 on [facility] 11/18/21 at Branch 0730, Until Discontinu ed, Routine ALPRAZolam 0 Yes .5mg 0.5 mg, Univ ers (XANAX) 11-18 Oral, ity of tablet 0.5 12:26: BIDPRN, [place] mg 05 Starting Medical on [facility] 11/18/21 at 0726, Until Discontinu ed, Routine, anxiety glucagon 0 Yes 1mg 1 mg, Univers (GLUCAGEN 11-18 Intramuscu ity of DIAGNOSTIC 12:24: lar, PRN, [place] KIT) 14 Starting Medical injection 1 on Mon Branch mg 11/18/21 at 0724, Until Discontinu ed, JOCELYN, Blood Glucose < or = 70 mg/dL and patient is unable to swallow or has mental changes. glucagon Yes 1mg 1 mg, Univers (GLUCAGEN 11-18 Intravenou ity of DIAGNOSTIC 12:24: s, PRN - [place] KIT) 14 SEE Medical injection 1 INSTRUCTIO Br anch mg NS, Starting on 11/18/21 at 0724, Until Discontinu ed, Routine, If blood glucose is < or = 70 mg/dL and patient is unable to swallow or has mental status changes: ibuprofen 2021- No 600mg 600 mg, Uni vers (IBU) 11-18 Oral, ity of tablet 600 11:45: 10:38 ONCE, 1 [place] mg 00 :00 dose, On Medical [facility] Branch 11/18/21 at 0645, JOCELYN cefTRIAXone No 1000mg 1,000 mg, Univers (ROCEPHIN) 11-18 IV ity of 1,000 mg in 11:30: 11:07 [place], [place] NaCl 0.9% 00 :00 ONCE, 1 Medical (NS) 50 mL dose, On [facility] MINI-BAG [facility] 11/18/21 at 0630, Administer over 30 Minutes, 50 mL
Reas on for Anti-Infec tive: Empiric Therapy for Suspected Infection< br>Empiric Therapy Site: Respirator y
Durat ion of therapy: 72 hours proMETHazin No 12.5mg 12.5 mg, Univers e 09-11 IV ity of (PHENERGAN) 13:45: 12:43 [place], [place] 12.5 mg in 00 :00 ONCE, 1 Medica l NaCl 0.9% dose, On Branch (NS) 50 mL Wed IV 09/11/21 at piggyback 0845, JOCELYN iopamidol 2021- No [id number] 120mL 120 mL, Univers (ISOVUE 09-11 Intravenou ity o f 370-500 mL) 13:15: 12:00 s, ONCE, 1 [place] injection 00 :00 dose, On Medica l 120 mL Wed Branch 09/11/21 at 0815, Routine NaCl 0.9% 2021-2021- No 500mL at 100 Univ ers (NS) bolus 4-20 04-20 mL/hr, 500 it y of infusion 12:30: 13:25 mL, IV [place] 500 mL 00 :00 Infusion, Medical ONCE, 1 Branch dose, On 09/11/21 at 0730, STAT ondansetron 2021-2021- No 4mg 4 mg, Slow Univers (ZOFRAN 4-20 04-20 IV Push, ity of (PF)) 11:30: 10:57 ONCE, 1 [place] injection 4 00 :00 dose, On Medi anabell mg Wed Branch 09/11/21 at 0630, JOCELYN ondansetron 2021- Yes [id number] 4mg Take 1 Univers 4 mg 4-20 tablet by ity of disintegrat 00:00: mouth [place] ing tablet 00 every 8 Medica l (eight) Branch hours as needed for Nausea and Vomiting (N/V). ondansetron 2021-0 2021- No [id number] 4mg Take 1 Univers 4 mg 4-20 07-01 tablet by ity of disintegrat 00:00: 00:00 mouth [place] tablet 00 :00 every 8 Medica l (eight) Branch hours as needed for Nausea and Vomiting (N/V). ondansetron 2021-0 2- No 4mg 4 mg, Slow Univers (ZOFRAN 3-03 03-03 IV Push, ity of (PF)) 22:45: 21:44 ONCE, 1 [place] injection 4 00 :00 dose, On Medi anabell mg [place] 07/25/21 Branch at 1645, JOCELYN NaCl 0.9% 2021-0 2021- No 1000mL at 999 Uni vers (NS) bolus 3-03 03-03 mL/hr, ity of infusion 22:45: 23:36 1,000 mL, [place] 1,000 mL 00 :00 IV Medical Infusion, Branch ONCE, 1 dose, On [place] 07/25/21 at 1645, JOCELYN ondansetron 2021-0 2021- No 4mg 4 mg, Slow Univers (ZOFRAN 2-19 IV Push, ity of (PF)) 04:15: 03:21 ONCE, 1 [place] injection 4 00 :00 dose, On Medi anabell mg Fri Branch 07/12/21 at 2215, JOCELYN iopamidol 2021- No [id number] 100mL 100 mL, Univers (ISOVUE 07-13 Intravenou ity o f 370-500 mL) 03:44: 03:45 s, ONCE, 1 [place] injection 00 :00 dose, On Medica l 100 mL Fri Branch 07/12/21 at 2200, Routine NaCl 0.9% 2021- No 500mL at 999 Univ ers (NS) bolus 07-13 mL/hr, 500 it y of infusion 02:30: 03:26 mL, IV [place] 500 mL 00 :00 Infusion, Medical ONCE, 1 Branch dose, On 07/12/21 at 2030, STAT ondansetron 0 2021- No 4mg 4 mg, Slow Univers (ZOFRAN 07-13 IV Push, ity of (PF)) 02:30: 01:46 ONCE, 1 [place] injection 4 00 :00 dose, On Medi anabell mg Fri Branch 07/12/21 at 2030, JOCELYN ondansetron 0 Yes [id number] 4mg Take 1 Univers (ZOFRAN) 4 2-18 tablet by ity of mg tablet 00:00: mouth [place] 00 every 8 Medical (eight) Branch hours as needed for Nausea and Vomiting (N/V). ondansetron 2021-0 Yes [id number] 4mg Take 1 Univers (ZOFRAN) 4 2-18 tablet by ity of mg tablet 00:00: mouth [place] 00 every 8 Medical (eight) Branch hours as needed for Nausea and Vomiting (N/V). ondansetron 2021-0 Yes [id number] 4mg Take 1 Univers (ZOFRAN) 4 2-18 tablet by ity of mg tablet 00:00: mouth [place] 00 every 8 Medical (eight) Branch hours as needed for Nausea and Vomiting (N/V). ondansetron 2-0 2- No [id number] 4mg Take 1 Univers (ZOFRAN) 4 2-18 07-01 tablet by ity of mg tablet 00:00: 00:00 mouth [place] 00 :00 every 8 Medical (eight) Branch hours as needed for Nausea and Vomiting (N/V). aspirin 81 2020-05- No [id number] 81mg Take 1 Univers mg chewable 0-06 11-06 tablet by it y of tablet 00:00: 04:59 mouth [place] 00 :00 daily for Medical 30 days. Branch furosemide 2020-05- No [id number] 60mg Take 3 Univers 20 mg 0-06 11-06 tablets by ity of tablet 00:00: 04:59 mouth [place] 00 :00 every Medical morning Branch and evening for 30 days. aspirin 81 2020-05- No [id number] 81mg Take 1 Univers mg chewable 0-06 11-06 tablet by it y of tablet 00:00: 04:59 mouth [place] 00 :00 daily for Medical 30 days. Branch furosemide 2020-05- No [id number] 60mg Take 3 Univers 20 mg 0-06 11-06 tablets by ity of tablet 00:00: 04:59 mouth [place] 00 :00 every Medical morning Branch and evening for 30 days. ALPRAZOLAM 2020-05 Yes 1mg Take 1 mg [place] (XANAX XR 0-05 by mouth ity of ORAL) 20:20: every 8 [place] 16 (eight) Medical hours as Branch needed. Ascorbic 2020-05 Yes 1000mg Take 1,000 U nivers Acid 1,000 0-05 mg by ity of mg TbSR 20:20: mouth 2 [place] 16 (two) Medical times Branch daily. Cholecalcif 2020-05 Yes 400U Take 400 [place] joanne, 0-05 Units by ity of Vitamin D3, 20:20: mouth [place] 400 unit 16 daily. Medical capsule Branch cyanocobala 2020-05 Yes 5000ug Take 5,000 Univers min, 0-05 mcg by ity of vitamin 20:20: mouth [place] B-12, 5,000 16 daily. Medica l mcg TbDL Branch digoxin 125 2020-05 Yes 125ug Take 125 U nivers mcg tablet 0-05 mcg by ity of 20:20: mouth [place] 16 daily. Medical Branch levothyroxi 2020-05 Yes 50ug Take 50 Uni vers ne 50 mcg 0-05 mcg by ity of tablet 20:20: mouth [place] 16 every Medical morning. Branch magnesium 2020-05 Yes 400mg Take 400 Uni vers oxide 400 0-05 mg by ity of mg tablet 20:20: mouth [place] 16 daily. Medical Branch pantoprazol 2020-05 Yes 40mg Take 40 mg Univers e 40 mg EC 0-05 by mouth ity o f tablet 20:20: daily. [place] [address] Medical Branch tamsulosin 2020-05 Yes .4mg Take 0.4 Uni vers 0.4 mg 24 0-05 mg by ity of hr capsule 20:20: mouth [place] 16 daily. Medical Branch traMADOL 50 2020-05 Yes 100mg Take 100 U nivers mg tablet 0-05 mg by ity of 20:20: mouth [place] 16 every 8 Medical (eight) Branch hours as needed for Pain (scale 4-6) or Pain (scale 7-10). May take 1 to 2 tablets Q8H as needed for pain glimepiride 2020-05 Yes 1mg Take 1 mg U nivers 1 mg tablet 0-05 by mouth 2 it y of 20:20: (two) [place] [address] times Medical daily with Branch meals. gabapentin 2020-05 Yes 100mg Take 100 [place] 100 mg 0-05 mg by ity of capsule 20:20: mouth 2 [place] 16 (two) Medical times Branch daily. rosuvastati 2020-05 Yes 5mg Take 5 mg U nivers n 5 mg 0-05 by mouth ity of tablet 20:20: at [place] 16 bedtime. Medical Branch ALPRAZOLAM 2020-05 Yes 1mg Take 1 mg [place] (XANAX XR 0-05 by mouth ity of ORAL) 20:20: every 8 [place] [address] (eight) Medical hours as Branch needed. Ascorbic 2020-05 Yes 1000mg Take 1,000 U nivers Acid 1,000 0-05 mg by ity of mg TbSR 20:20: mouth 2 [place] 16 (two) Medical times Branch daily. Cholecalcif 2020-05 Yes 400U Take 400 [place] joanne, 0-05 Units by ity of Vitamin D3, 20:20: mouth [place] 400 unit 16 daily. Medical capsule Branch cyanocobala 2020-05 Yes 5000ug Take 5,000 Univers min, 0-05 mcg by ity of vitamin 20:20: mouth [place] B-12, 5,000 16 daily. Medica l mcg TbDL Branch digoxin 125 2020-05 Yes 125ug Take 125 U nivers mcg tablet 0-05 mcg by ity of 20:20: mouth [place] 16 daily. Medical Branch levothyroxi 2020-05 Yes 50ug Take 50 Uni vers ne 50 mcg 0-05 mcg by ity of tablet 20:20: mouth [place] 16 every Medical morning. Branch magnesium 2020-05 Yes 400mg Take 400 Uni vers oxide 400 0-05 mg by ity of mg tablet 20:20: mouth [place] 16 daily. Medical Branch pantoprazol 2020-05 Yes 40mg Take 40 mg Univers e 40 mg EC 0-05 by mouth ity o f tablet 20:20: daily. [place] [address] Medical Branch tamsulosin 2020-05 Yes .4mg Take 0.4 Uni vers 0.4 mg 24 0-05 mg by ity of hr capsule 20:20: mouth [place] 16 daily. Medical Branch traMADOL 50 2020-05 Yes 100mg Take 100 U nivers mg tablet 0-05 mg by ity of 20:20: mouth [place] 16 every 8 Medical (eight) Branch hours as needed for Pain (scale 4-6) or Pain (scale 7-10). May take 1 to 2 tablets Q8H as needed for pain glimepiride 2020-05 Yes 1mg Take 1 mg U nivers 1 mg tablet 0-05 by mouth 2 it y of 20:20: (two) [place] [address] times Medical daily with Branch meals. gabapentin 2020-05 Yes 100mg Take 100 [place] 100 mg 0-05 mg by ity of capsule 20:20: mouth 2 [place] [address] (two) Medical times Branch daily. rosuvastati 2020-05 Yes 5mg Take 5 mg U nivers n 5 mg 0-05 by mouth ity of tablet 20:20: at [place] [address] bedtime. Medical Branch ALPRAZOLAM 2020-05 Yes 1mg Take 1 mg [place] (XANAX XR 0-05 by mouth ity of ORAL) 20:20: every 8 [place] [address] (eight) Medical hours as Branch needed. Ascorbic 2020-05 Yes 1000mg Take 1,000 U nivers Acid 1,000 0-05 mg by ity of mg TbSR 20:20: mouth 2 [place] 16 (two) Medical times Branch daily. Cholecalcif 2020-05 Yes 400U Take 400 [place] joanne, 0-05 Units by ity of Vitamin D3, 20:20: mouth [place] 400 unit 16 daily. Medical capsule Branch cyanocobala 2020-05 Yes 5000ug Take 5,000 Univers min, 0-05 mcg by ity of vitamin 20:20: mouth [place] B-12, 5,000 16 daily. Medica l mcg TbDL Branch digoxin 125 2020-05 Yes 125ug Take 125 U nivers mcg tablet 0-05 mcg by ity of 20:20: mouth [place] 16 daily. Medical Branch levothyroxi 2020-05 Yes 50ug Take 50 Uni vers ne 50 mcg 0-05 mcg by ity of tablet 20:20: mouth [place] 16 every Medical morning. Branch magnesium 2020-05 Yes 400mg Take 400 Uni vers oxide 400 0-05 mg by ity of mg tablet 20:20: mouth [place] 16 daily. Medical Branch pantoprazol 2020-05 Yes 40mg Take 40 mg Univers e 40 mg EC 0-05 by mouth ity o f tablet 20:20: daily. [place] 16 Medical Branch tamsulosin 2020-05 Yes .4mg Take 0.4 Uni vers 0.4 mg 24 0-05 mg by ity of hr capsule 20:20: mouth [place] 16 daily. Medical Branch traMADOL 50 2020-05 Yes 100mg Take 100 U nivers mg tablet 0-05 mg by ity of 20:20: mouth [place] 16 every 8 Medical (eight) Branch hours as needed for Pain (scale 4-6) or Pain (scale 7-10). May take 1 to 2 tablets Q8H as needed for pain glimepiride 2020-05 Yes 1mg Take 1 mg U nivers 1 mg tablet 0-05 by mouth 2 it y of 20:20: (two) [place] times Medical daily with Branch meals. gabapentin 2020-05 Yes 100mg Take 100 [place] 100 mg 0-05 mg by ity of capsule 20:20: mouth 2 [place] 16 (two) Medical times Branch daily. rosuvastati 2020-05 Yes 5mg Take 5 mg U nivers n 5 mg 0-05 by mouth ity of tablet 20:20: at [place] 16 bedtime. Medical Branch ALPRAZOLAM 2020-05 Yes 1mg Take 1 mg [place] (XANAX XR 0-05 by mouth ity of ORAL) 20:20: every 8 [place] 16 (eight) Medical hours as Branch needed. Ascorbic 2020-05 Yes 1000mg Take 1,000 U nivers Acid 1,000 0-05 mg by ity of mg TbSR 20:20: mouth 2 [place] 16 (two) Medical times Branch daily. Cholecalcif 2020-05 Yes 400U Take 400 [place] joanne, 0-05 Units by ity of Vitamin D3, 20:20: mouth [place] 400 unit 16 daily. Medical capsule Branch cyanocobala 2020-05 Yes 5000ug Take 5,000 Univers min, 0-05 mcg by ity of vitamin 20:20: mouth [place] B-12, 5,000 16 daily. Medica l mcg TbDL Branch digoxin 125 2020-05 Yes 125ug Take 125 U nivers mcg tablet 0-05 mcg by ity of 20:20: mouth [place] 16 daily. Medical Branch levothyroxi 2020-05 Yes 50ug Take 50 Uni vers ne 50 mcg 0-05 mcg by ity of tablet 20:20: mouth [place] 16 every Medical morning. Branch magnesium 2020-05 Yes 400mg Take 400 Uni vers oxide 400 0-05 mg by ity of mg tablet 20:20: mouth [place] 16 daily. Medical Branch pantoprazol 2020-05 Yes 40mg Take 40 mg Univers e 40 mg EC 0-05 by mouth ity o f tablet 20:20: daily. [place] 16 Medical Branch tamsulosin 2020-05 Yes .4mg Take 0.4 Uni vers 0.4 mg 24 0-05 mg by ity of hr capsule 20:20: mouth [place] 16 daily. Medical Branch traMADOL 50 2020-05 Yes 100mg Take 100 U nivers mg tablet 0-05 mg by ity of 20:20: mouth [place] 16 every 8 Medical (eight) Branch hours as needed for Pain (scale 4-6) or Pain (scale 7-10). May take 1 to 2 tablets Q8H as needed for pain glimepiride 2020-05 Yes 1mg Take 1 mg U nivers 1 mg tablet 0-05 by mouth 2 it y of 20:20: (two) [place] 16 times Medical daily with Branch meals. gabapentin 2020-05 Yes 100mg Take 100 [place] 100 mg 0-05 mg by ity of capsule 20:20: mouth 2 [place] 16 (two) Medical times Branch daily. rosuvastati 2020-05 Yes 5mg Take 5 mg U nivers n 5 mg 0-05 by mouth ity of tablet 20:20: at [place] 16 bedtime. Medical Branch ALPRAZOLAM 2020-05 Yes 1mg Take 1 mg [facility] [place] (XANAX XR 0-05 by mouth ity of ORAL) 20:20: every 8 [place] 16 (eight) Medical hours as Branch needed. Ascorbic 2020-05 Yes 1000mg Take 1,000 U nivers Acid 1,000 0-05 mg by ity of mg TbSR 20:20: mouth 2 [place] 16 (two) Medical times Branch daily. Cholecalcif 2020-05 Yes 400U Take 400 [place] joanne, 0-05 Units by ity of Vitamin D3, 20:20: mouth [place] 400 unit 16 daily. Medical capsule Branch cyanocobala 2020-05 Yes 5000ug Take 5,000 Univers min, 0-05 mcg by ity of vitamin 20:20: mouth [place] B-12, 5,000 16 daily. Medica l mcg TbDL Branch digoxin 125 2020-05 Yes 125ug Take 125 U nivers mcg tablet 0-05 mcg by ity of 20:20: mouth [place] 16 daily. Medical Branch levothyroxi 2020-05 Yes 50ug Take 50 Uni vers ne 50 mcg 0-05 mcg by ity of tablet 20:20: mouth [place] 16 every Medical morning. Branch magnesium 2020-05 Yes 400mg Take 400 Uni vers oxide 400 0-05 mg by ity of mg tablet 20:20: mouth [place] 16 daily. Medical Branch pantoprazol 2020-05 Yes 40mg Take 40 mg Univers e 40 mg EC 0-05 by mouth ity o f tablet 20:20: daily. [place] 16 Medical Branch tamsulosin 2020-05 Yes .4mg Take 0.4 Uni vers 0.4 mg 24 0-05 mg by ity of hr capsule 20:20: mouth [place] 16 daily. Medical Branch traMADOL 50 2020-05 Yes 100mg Take 100 U nivers mg tablet 0-05 mg by ity of 20:20: mouth [place] 16 every 8 Medical (eight) Branch hours as needed for Pain (scale 4-6) or Pain (scale 7-10). May take 1 to 2 tablets Q8H as needed for pain glimepiride 2020-05 Yes 1mg Take 1 mg U nivers 1 mg tablet 0-05 by mouth 2 it y of 20:20: (two) [place] 16 times Medical daily with Branch meals. gabapentin 2020-05 Yes 100mg Take 100 [place] 100 mg 0-05 mg by ity of capsule 20:20: mouth 2 [place] 16 (two) Medical times [place] daily. rosuvastati 2020-05 Yes 5mg Take 5 mg U nivers n 5 mg 0-05 by mouth ity of tablet 20:20: at [place] 16 bedtime. Medical Branch lisinopril 2020-05 No 10mg Take 10 mg Univers 10 mg 0-05 10-05 by mouth ity of tablet 17:14: 00:00 daily. [place] 23 :00 Medical Branch furosemide 2020-05 No 60mg Take 60 mg Univers 40 mg 0-05 10-05 by mouth ity of tablet 17:14: 00:00 every [place] 23 :00 morning Medical and Branch evening. KCL 10 mEq 2020-05 No 10meq Take 10 [facility] [place] tablet 0-05 10-05 mEq by ity of 17:14: 00:00 mouth 2 [place] 23 :00 (two) Medical times [place] daily. isosorbide 2020-05 No 30mg Take 30 mg Univers mononitrate 0-05 10-05 by mouth ity of 30 mg 24 hr 17:14: 00:00 daily. [place] tablet 23 :00 Medical Branch furosemide 2020-05 Yes 60mg 60 mg, Unive rs (LASIX) 0-05 Oral, ity of tablet 60 14:00: QAM+PM, [place] mg 00 First dose Medical on [facility] 02/26/21 at 0900, Until Discontinu ed, Routine tamsulosin 2020-05 Yes .4mg 0.4 mg, Univ ers (FLOMAX) 0-05 Oral, ity of capsule 0.4 14:00: DAILY, [place] mg 00 First dose Medical on [facility] 02/26/21 at 0900, Until Discontinu ed, Routine sennosides- 2020-05 Yes 1{tbl} 1 tablet, Univers docusate 0-05 Oral, ity of sodium 14:00: DAILY, [place] (SENOKOT-S) 00 First dose Me dical 8.6-50 mg on [facility] per tablet 02/26/21 at 1 tablet 0900, Until Discontinu ed, Routine polyethylen 2020-05 Yes 17g 17 g, Unive rs e glycol 0-05 Oral, ity of 3350 powder 14:00: DAILY, [place] 17 g 00 First dose Medical on [facility] 02/26/21 at 0900, Until Discontinu ed, Routine pantoprazol 2020-05 Yes 40mg 40 mg, Univ ers e 0-05 Oral, ity of (PROTONIX) 14:00: DAILY, [place] EC tablet 00 First dose Medi anabell 40 mg on [facility] 02/26/21 at 0900, Until Discontinu ed, Routine aspirin 2020-05 Yes 81mg 81 mg, Univers chewable 0-05 Oral, ity of tablet 81 14:00: DAILY, [place] mg 00 First dose Medical on [facility] 02/26/21 at 0900, Until Discontinu ed, Routine digoxin 2020-05 Yes 125ug 125 mcg, Unive rs (LANOXIN) 0-05 Oral, ity of tablet 125 14:00: DAILY, [place] mcg 00 First dose Medical on [facility] 02/26/21 at 0900, Until Discontinu ed, Routine magnesium 2020-05 Yes 400mg 400 mg, Univ ers oxide 0-05 Oral, ity of (MAG-OX 14:00: DAILY, [place] 400) tablet 00 First dose Me dical 400 mg on [facility] 02/26/21 at 0900, Until Discontinu ed, Routine Sliding 2020-05 Yes Subcutaneo Univ ers Scale 0-05 us, AC, ity of Insulin-Reg 12:30: First dose [place] ular + Fsbg 00 on [facility] l Testing 02/26/21 at Branch 0730, Until Discontinu ed, Routine glucagon 2020-05 Yes 1mg 1 mg, Univers (GLUCAGEN 0-05 Intramuscu ity of DIAGNOSTIC 11:07: lar, PRN, [place] KIT) 13 Starting Medical injection 1 on [facility] mg 02/26/21 at 0607, Until Discontinu ed, JOCELYN, Blood Glucose < or = 70 mg/dL and patient is unable to swallow or has mental changes. dextrose 50 2020-05 Yes 25mL 25 mL, Univ ers % in water 0-05 Slow IV ity of (D50W) 11:07: Push, PRN, [place] injection 13 Starting Medica l 25 mL on Tue Branch 02/26/21 at 0607, Until Discontinu ed, JOCELYN, Blood Glucose < or = 70 mg/dL and patient is unable to swallow or has mental status changes. levothyroxi 2020-05 Yes 50ug 50 mcg, Uni vers ne 0-05 Oral, ity of (SYNTHROID) 11:00: QAM-0600, [place] tablet 50 00 First dose Medi anabell mcg on Tue Branch 02/26/21 at 0600, Until Discontinu ed, Routine diltiazem 2020-05 Yes 10mg 10 mg, Univer s (CARDIZEM 0-05 Slow IV ity of IV) 10:56: Push, [place] injection 56 Q4HPRN, Medical 10 mg Starting Branch on e 02/26/21 at 0556, Until Discontinu ed, Routine, For HR > 120
Fac ulty member approving Restricted medication : RICKY WEEKS calcium 2020-05 No 1g 1 g, IV Univer s gluconate 1 0-05 10-05 Infusion, it y of g in NaCl 08:30: 07:36 ONCE, 1 [place] 50 mL 00 :00 dose, On Medical (ISO-OSM) [facility] RTU IV 02/26/21 at infusion 1 0330, g Routine cyclobenzap 2020-05 No 10mg 10 mg, Uni vers rine 0-05 10-05 Oral, ity of (FLEXERIL) 07:30: 07:23 ONCE, 1 [place] tablet 10 00 :00 dose, On Medica l mg Tue Branch 02/26/21 at 0230, Routine sodium 2020-05- No 15g 15 g, Univers polystyrene 0-05 10-05 Oral, ity of sulfonate 07:30: 07:02 ONCE, 1 [place] (KAYEXALATE 00 :00 dose, On Medi anabell ) 15 Tue Branch gram/60 mL 02/26/21 at suspension 0230, 15 g Routine dextrose 50 2020-05 No 50mL 50 mL, Uni vers % in water 0-05 10-05 Slow IV ity o f (D50W) 07:15: 07:18 Push, [place] injection 00 :00 ONCE, 1 Medical 50 mL dose, On Branch Thu02/26/21 at 0215, Routine insulin 2020-05 No 10U 10 Units, Univ ers regular 0-05 10-05 IV Push, ity of human 07:15: 07:19 ONCE, 1 [place] (HUMULIN R) 00 :00 dose, On Medi anabell injection 10 Units 02/26/21 at 0215, Routine melatonin 2020-05 Yes 6mg 6 mg, Univers (MELATIN) 0-05 Oral, ity of tablet 6 mg 03:16: QHSPRN, [place] 26 Starting Medical on Thu [place] 02/25/21 at 2216, Until Discontinu ed, Routine, Insomnia rosuvastati 2020-05 Yes 5mg 5 mg, Unive rs n (CRESTOR) 0-05 Oral, QHS, it y of tablet 5 mg 02:00: First dose 00 on [facility] 02/25/21 at Branch 2100, Until Discontinu ed, Routine gabapentin 2020-05 Yes 100mg 100 mg, Uni vers (NEURONTIN) 0-05 Oral, BID, it y of capsule 100 01:00: First dose [place] mg 00 on [facility] 02/25/21 at Branch 2000, Until Discontinu ed, Routine metoprolol 2020-05 Yes 50mg 50 mg, Unive rs succinate 0-05 Oral, BID, ity of XL (TOPROL 01:00: First dose [place] XL) tablet 00 on [facility] 50 mg 02/25/21 at Branch 1999, Until Discontinu ed, Routine apixaban 2020-05 Yes 5mg 5 mg, Univers (ELIQUIS) 0-05 Oral, BID, ity of tablet 5 mg 01:00: First dose [place] 00 on [facility] 02/25/21 at Branch 1999, Until Discontinu ed, Routine furosemide 2020-05 No 40mg 40 mg, Univ ers (LASIX) 0-05 10-05 Slow IV ity of injection 01:00: 11:03 Push, [place] 40 mg 00 :04 Q12H, Medical First dose Branch on Thu02/25/21 at 2000, Until Discontinu ed, Routine isosorbide 2020-05- No [id number] 30mg Take 1 Univers mononitrate 0-05 11-05 tablet by it y of 30 mg 24 hr 00:00: 04:59 mouth [place] tablet 00 :00 daily for Medical 30 days. Branch KCL 10 mEq 2020-05- No [id number] 10meq Take 1 Univers tablet 0-05 11-05 tablet by ity of 00:00: 04:59 mouth [place] 00 :00 daily for Medical 30 days. Branch melatonin 3 2020-05- No [id number] 6mg Take 2 Univers mg tablet 0-05 11-05 tablets by ity of 00:00: 04:59 mouth at [place] 00 :00 bedtime as Medical needed for Branch Insomnia for up to 30 days. metoprolol 2020-05- No [id number] 50mg Take 1 Univers succinate 0-05 11-05 tablet by ity of XL 50 mg 24 00:00: 04:59 mouth 2 [place] hr tablet 00 :00 (two) Medical times Branch daily for 30 days. spironolact 2020-05- No [id number] 25mg Take 1 Univers one 25 mg 0-05 11-05 tablet by ity of tablet 00:00: 04:59 mouth [place] 00 :00 daily for Medical 30 days. Branch isosorbide 2020-05- No [id number] 30mg Take 1 Univers mononitrate 0-05 11-05 tablet by it y of 30 mg 24 hr 00:00: 04:59 mouth [place] tablet 00 :00 daily for Medical 30 days. Branch KCL 10 mEq 2020-05- No [id number] 10meq Take 1 Univers tablet 0-05 11-05 tablet by ity of 00:00: 04:59 mouth [place] 00 :00 daily for Medical 30 days. Branch melatonin 3 2020-05- No [id number] 6mg Take 2 Univers mg tablet 0-05 11-05 tablets by ity of 00:00: 04:59 mouth at [place] 00 :00 bedtime as Medical needed for Branch Insomnia for up to 30 days. metoprolol 2020-05- No [id number] 50mg Take 1 Univers succinate 0-05 11-05 tablet by ity of XL 50 mg 24 00:00: 04:59 mouth 2 [place] hr tablet 00 :00 (two) Medical times Branch daily for 30 days. spironolact 2020-05- No [id number] 25mg Take 1 Univers one 25 mg 0-05 11-05 tablet by ity of tablet 00:00: 04:59 mouth [place] 00 :00 daily for Medical 30 days. Branch traMADoL 2020-05- No 50mg 50 mg, Univer s (ULTRAM) 0-04 10-04 Oral, ONCE ity of tablet 50 21:45: 20:37 NOW, 1 [place] mg 00 :00 dose, On Medical [facility] 02/25/21 at 1645, Routine ondansetron 2020-05 Yes 4mg 4 mg, Slow Univers (ZOFRAN 0-04 IV Push, ity of (PF)) 21:37: Q6HPRN, [place] injection 4 10 Starting Medi anabell mg on [facility] 02/25/21 at 1637, Until Discontinu ed, Routine, Nausea and Vomiting (N/V) traMADoL 2020-05 No 50mg 50 mg, Univer s (ULTRAM) 0-04 10-06 Oral, ity of tablet 50 21:36: 21:35 Q8HPRN, [place] mg 55 :55 Starting Medical on [facility] 02/25/21 at 1636, Until 02/27/21 at 1635, Routine, Pain (scale 4-6) acetaminoph 2020-05 Yes 650mg 650 mg, [place] en 0-04 Oral, ity of (TYLENOL) 21:36: Q6HPRN, [place] tablet 650 51 Starting Medic al mg on [facility] 02/25/21 at 1636, Until Discontinu ed, Routine, Pain (scale 1-3) diltiazem 2020-05 No 60mg 60 mg, Unive rs (CARDIZEM) 0-04 10-04 Oral, ONCE it y of tablet 60 21:30: 20:37 NOW, 1 [place] mg 00 :00 dose, On Medical [facility] 02/25/21 at 1630, Routine diltiazem 2020-05- No 2.5mg/h 2.5-15 [place] (CARDIZEM 0-04 10-05 mg/hr ity of IV) 125 mg 20:03: 10:57 (2.5-15 [place] in D5W 05 :18 mL/hr), IV Medical infusion Infusion, Branch TITRATE, rate control, HR <100 is goal, Starting on Thu02/25/21 at 1503
In itiate infusion at 2.5 mg/hr. Titrate by 2.5 mg/hr every 5 minutes to 15 minutes as needed to achieve and maintain goal heart rate. Maximum dose = 15 mg/hr. If goal not maintained at maximum allowed dose, contact prescriber .
diltiazem 2020-05 No 10mg 10 mg, IV [place] (CARDIZEM 0-04 10-04 Push, ity of IV) 20:00: 19:32 ONCE, 1 [place] injection 00 :00 dose, On Medica l 10 mg [facility] 02/25/21 at 1500, STAT
Fa culty member approving Restricted medication : MONICO MARIEE aspirin 81 2020-05- No 81mg Take 81 mg Univers mg chewable 0-04 10-04 by mouth ity of tablet 16:38: 00:00 daily. [place] 43 :00 Medical Branch atorvastati 2020-05- No 20mg Take 20 mg Univers n 20 mg 0-04 10-04 by mouth ity of tablet 16:38: 00:00 at [place] 43 :00 bedtime. Medical Branch OMEGA-3 2020-05- No 1000mg Take 1,000 U nivers FATTY 0-04 10-04 mg by ity of ACIDS/FISH 16:38: 00:00 mouth 2 [place] OIL ([place] 43 :00 (two) Medical 3 FISH OIL times Branch ORAL) daily. traMADoL 0 2020- No 50mg 50 mg, Univer s (ULTRAM) 02-1726 Oral, ONCE ity of tablet 50 21:00: 20:16 NOW, 1 [place] mg 00 :00 dose, On Medical [place] [facility] 02/17/21 at 1600, JOCELYN ALPRAZOLAM Yes 1mg Take 1 mg [place] (XANAX XR 2-06 by mouth ity of ORAL) 01:21: every 8 [place] 07 (eight) Medical hours as Branch needed. Ascorbic 2020-0 Yes 1000mg Take 1,000 U nivers Acid 1,000 2-06 mg by ity of mg TbSR 01:21: mouth 2 07 (two) Medical times Branch daily. aspirin 81 Yes 81mg Take 81 mg U nivers mg chewable 2-06 by mouth ity of tablet 01:21: daily. Medical Branch atorvastati Yes 20mg Take 20 mg Univers n 20 mg 2-06 by mouth ity of tablet 01:21: at bedtime. Medical Branch Cholecalcif Yes 400U Take 400 [place] joanne, 2-06 Units by ity of Vitamin D3, 01:21: mouth [place] 400 unit 07 daily. Medical capsule Branch cyanocobala Yes 5000ug Take 5,000 Univers min, 2-06 mcg by ity of vitamin 01:21: mouth [place] B-12, 5,000 07 daily. Medica l mcg TbDL Branch digoxin 125 Yes 125ug Take 125 U nivers mcg tablet 2-06 mcg by ity of 01:21: mouth [place] 07 daily. Medical Branch levothyroxi Yes 50ug Take 50 Uni vers ne 50 mcg 2-06 mcg by ity of tablet 01:21: mouth [place] 07 every Medical morning. Branch lisinopril Yes 10mg Take 10 mg U nivers 10 mg 2-06 by mouth ity of tablet 01:21: daily. Medical Branch magnesium Yes 400mg Take 400 Uni vers oxide 400 2-06 mg by ity of mg tablet 01:21: mouth [place] 07 daily. Medical Branch OMEGA-3 Yes 1000mg Take 1,000 [place] FATTY 2-06 mg by ity of ACIDS/FISH 01:21: mouth 2 [place] OIL (OMEGA 07 (two) Medical 3 FISH OIL times Branch ORAL) daily. pantoprazol Yes 40mg Take 40 mg Univers e 40 mg EC 2-06 by mouth ity o f tablet 01:21: daily. Medical Branch tamsulosin Yes .4mg Take 0.4 Uni vers 0.4 mg 24 2-06 mg by ity of hr capsule 01:21: mouth [place] 07 daily. Medical Branch traMADOL 50 Yes 100mg Take 100 U nivers mg tablet 2-06 mg by ity of 01:21: mouth 07 every 8 Medical (eight) Branch hours as needed for Pain (scale 4-6) or Pain (scale 7-10). May take 1 to 2 tablets Q8H as needed for pain furosemide 2020-0 Yes 60mg Take 60 mg U nivers 40 mg 2-06 by mouth ity of tablet 01:21: every morning Medical and Branch evening. KCL 10 mEq 2020-0 Yes 10meq Take 10 Uni vers tablet 2-06 mEq by ity of 01:21: mouth 2 (two) Medical times Branch daily. isosorbide 2020-0 Yes 30mg Take 30 mg U nivers mononitrate 2-06 by mouth ity of 30 mg 24 hr 01:21: daily. [place] tablet Medical Branch glimepiride 2020-0 Yes 1mg Take 1 mg U nivers 1 mg tablet 2-06 by mouth 2 it y of 01:21: (two) [place] [address] times Medical daily with Branch meals. gabapentin 2020-0 Yes 100mg Take 100 [place] 100 mg 2-06 mg by ity of capsule 01:21: mouth 2 (two) Medical times Branch daily. ALPRAZOLAM 0 Yes 1mg Take 1 mg [place] (XANAX XR 2-06 by mouth ity of ORAL) 01:21: every 8 (eight) Medical hours as Branch needed. Ascorbic 2020-0 Yes 1000mg Take 1,000 U nivers Acid 1,000 2-06 mg by ity of mg TbSR 01:21: mouth 2 [place] [address] (two) Medical times Branch daily. aspirin 81 2020-0 Yes 81mg Take 81 mg U nivers mg chewable 2-06 by mouth ity of tablet 01:21: daily. [place] [address] Medical Branch atorvastati 2020-0 Yes 20mg Take 20 mg Univers n 20 mg 2-06 by mouth ity of tablet 01:21: at [place] [address] bedtime. Medical Branch Cholecalcif 2020-0 Yes 400U Take 400 [place] joanne, 2-06 Units by ity of Vitamin D3, 01:21: mouth [place] 400 unit 07 daily. Medical capsule Branch cyanocobala 2020-0 Yes 5000ug Take 5,000 Univers min, 2-06 mcg by ity of vitamin 01:21: mouth [place] B-12, 5,000 07 daily. Medica l mcg [facility] Branch digoxin 125 Yes 125ug Take 125 U nivers mcg tablet 2-06 mcg by ity of 01:21: mouth daily. Medical Branch levothyroxi Yes 50ug Take 50 Uni vers ne 50 mcg 2-06 mcg by ity of tablet 01:21: mouth every Medical morning. Branch lisinopril Yes 10mg Take 10 mg U nivers 10 mg 2-06 by mouth ity of tablet 01:21: daily. [place] [address] Medical Branch magnesium Yes 400mg Take 400 Uni vers oxide 400 2-06 mg by ity of mg tablet 01:21: mouth daily. Medical Branch OMEGA-3 Yes 1000mg Take 1,000 [place] FATTY 2-06 mg by ity of ACIDS/FISH 01:21: mouth 2 [place] OIL (OMEGA 07 (two) Medical 3 FISH OIL times Branch ORAL) daily. pantoprazol Yes 40mg Take 40 mg Univers e 40 mg EC 2-06 by mouth ity o f tablet 01:21: daily. [place] [address] Medical Branch tamsulosin Yes .4mg Take 0.4 Uni vers 0.4 mg 24 2-06 mg by ity of hr capsule 01:21: mouth daily. Medical Branch traMADOL 50 Yes 100mg Take 100 U nivers mg tablet 2-06 mg by ity of 01:21: mouth every 8 Medical (eight) Branch hours as needed for Pain (scale 4-6) or Pain (scale 7-10). May take 1 to 2 tablets Q8H as needed for pain furosemide Yes 60mg Take 60 mg U nivers 40 mg 2-06 by mouth ity of tablet 01:21: every morning Medical and Branch evening. KCL 10 mEq Yes 10meq Take 10 Uni vers tablet 2-06 mEq by ity of 01:21: mouth 2 (two) Medical times Branch daily. isosorbide Yes 30mg Take 30 mg U nivers mononitrate 2-06 by mouth ity of 30 mg 24 hr 01:21: daily. [place] tablet 07 Medical Branch glimepiride Yes 1mg Take 1 mg U nivers 1 mg tablet 2-06 by mouth 2 it y of 01:21: (two) times Medical daily with Branch meals. gabapentin Yes 100mg Take 100 [place] 100 mg 2-06 mg by ity of capsule 01:21: mouth 2 07 (two) Medical times Branch daily. ALPRAZOLAM Yes 1mg Take 1 mg [place] (XANAX XR 2-06 by mouth ity of ORAL) 01:21: every 8 (eight) Medical hours as Branch needed. Ascorbic Yes 1000mg Take 1,000 U nivers Acid 1,000 2-06 mg by ity of mg TbSR 01:21: mouth 2 (two) Medical times Branch daily. aspirin 81 Yes 81mg Take 81 mg U nivers mg chewable 2-06 by mouth ity of tablet 01:21: daily. Medical Branch atorvastati Yes 20mg Take 20 mg Univers n 20 mg 2-06 by mouth ity of tablet 01:21: at [place] [address] bedtime. Medical Branch Cholecalcif Yes 400U Take 400 [place] joanne, 2-06 Units by ity of Vitamin D3, 01:21: mouth [place] 400 unit 07 daily. Medical capsule Branch cyanocobala Yes 5000ug Take 5,000 Univers min, 2-06 mcg by ity of vitamin 01:21: mouth [place] B-12, 5,000 07 daily. Medica l mcg TbDL Branch digoxin 125 Yes 125ug Take 125 U nivers mcg tablet 2-06 mcg by ity of 01:21: mouth [place] 07 daily. Medical Branch levothyroxi Yes 50ug Take 50 Uni vers ne 50 mcg 2-06 mcg by ity of tablet 01:21: mouth [place] 07 every Medical morning. Branch lisinopril Yes 10mg Take 10 mg U nivers 10 mg 2-06 by mouth ity of tablet 01:21: daily. Medical Branch magnesium 0 Yes 400mg Take 400 Uni vers oxide 400 2-06 mg by ity of mg tablet 01:21: mouth [place] 07 daily. Medical Branch OMEGA-3 Yes 1000mg Take 1,000 [place] FATTY 2-06 mg by ity of ACIDS/FISH 01:21: mouth 2 [place] OIL (OMEGA 07 (two) Medical 3 FISH OIL times Branch ORAL) daily. pantoprazol 0 Yes 40mg Take 40 mg Univers e 40 mg EC 2-06 by mouth ity o f tablet 01:21: daily. Medical Branch tamsulosin 0 Yes .4mg Take 0.4 Uni vers 0.4 mg 24 2-06 mg by ity of hr capsule 01:21: mouth 07 daily. Medical Branch traMADOL 50 0 Yes 100mg Take 100 U nivers mg tablet 2-06 mg by ity of 01:21: mouth 07 every 8 Medical (eight) Branch hours as needed for Pain (scale 4-6) or Pain (scale 7-10). May take 1 to 2 tablets Q8H as needed for pain furosemide Yes 60mg Take 60 mg U nivers 40 mg 2-06 by mouth ity of tablet 01:21: every morning Medical and Branch evening. KCL 10 mEq Yes 10meq Take 10 Uni vers tablet 2-06 mEq by ity of 01:21: mouth 2 07 (two) Medical times Branch daily. isosorbide Yes 30mg Take 30 mg U nivers mononitrate 2-06 by mouth ity of 30 mg 24 hr 01:21: daily. [place] tablet 07 Medical Branch glimepiride Yes 1mg Take 1 mg U nivers 1 mg tablet 2-06 by mouth 2 it y of 01:21: (two) [place] times [facility] daily with Branch meals. gabapentin Yes 100mg Take 100 [place] 100 mg 2-06 mg by ity of capsule 01:21: mouth 2 07 (two) Medical times Branch daily. spironolact 2020-0 Yes [id number] 25mg Take 1 Univers one 25 mg 2-06 tablet by ity o f tablet 00:00: mouth [place] 00 daily. Medical Branch spironolact 2020-0 Yes [id number] 25mg Take 1 Univers one 25 mg 2-06 tablet by ity o f tablet 00:00: mouth [place] 00 daily. Medical Branch spironolact Yes [id number] 25mg Take 1 Univers one 25 mg 2-06 tablet by ity o f tablet 00:00: mouth [place] 00 daily. Medical Branch spironolact 0 Yes [id number] 25mg Take 1 Univers one 25 mg 2-06 tablet by ity o f tablet 00:00: mouth [place] 00 daily. Medical Branch spironolact 2020- No [id number] 25mg Take 1 Univers one 25 mg 2-06 10-05 tablet by ity of tablet 00:00: 00:00 mouth [place] 00 :00 daily. Medical Branch acetaminoph 2020- No 650mg 650 mg, U nivers en 2-05 02-05 Oral, ity of (TYLENOL) 20:33: 20:44 ONCE, 1 [place] tablet 650 00 :00 dose, Fri Medi anabell mg 06/29/20 at Branch 1445, Routine ALPRAZOLAM Yes 1mg Take 1 mg [place] (XANAX XR 2-05 by mouth ity of ORAL) 19:21: every 8 (eight) Medical hours as Branch needed. Ascorbic Yes 1000mg Take 1,000 U nivers Acid 1,000 2-05 mg by ity of mg TbSR 19:21: mouth 2 07 (two) Medical times Branch daily. aspirin 81 Yes 81mg Take 81 mg U nivers mg chewable 2-05 by mouth ity of tablet 19:21: daily. Medical Branch atorvastati Yes 20mg Take 20 mg Univers n 20 mg 2-05 by mouth ity of tablet 19:21: at [place] 07 bedtime. Medical Branch Cholecalcif Yes 400U Take 400 [place] joanne, 2-05 Units by ity of Vitamin D3, 19:21: mouth [place] 400 unit 07 daily. Medical capsule Branch cyanocobala Yes 5000ug Take 5,000 Univers min, 2-05 mcg by ity of vitamin 19:21: mouth [place] B-12, 5,000 07 daily. Medica l mcg TbDL Branch digoxin 125 Yes 125ug Take 125 U nivers mcg tablet 2-05 mcg by ity of 19:21: mouth [place] 07 daily. Medical Branch levothyroxi Yes 50ug Take 50 Uni vers ne 50 mcg 2-05 mcg by ity of tablet 19:21: mouth every Medical morning. Branch lisinopril Yes 10mg Take 10 mg U nivers 10 mg 2-05 by mouth ity of tablet 19:21: daily. Medical Branch magnesium Yes 400mg Take 400 Uni vers oxide 400 2-05 mg by ity of mg tablet 19:21: mouth daily. Medical Branch OMEGA-3 Yes 1000mg Take 1,000 [place] FATTY 2-05 mg by ity of ACIDS/FISH 19:21: mouth 2 [place] OIL (OMEGA (two) Medical 3 FISH OIL times Branch ORAL) daily. pantoprazol Yes 40mg Take 40 mg Univers e 40 mg EC 2-05 by mouth ity o f tablet 19:21: daily. Medical Branch tamsulosin Yes .4mg Take 0.4 Uni vers 0.4 mg 24 2-05 mg by ity of hr capsule 19:21: mouth daily. Medical Branch traMADOL 50 Yes 100mg Take 100 U nivers mg tablet 2-05 mg by ity of 19:21: mouth every 8 Medical (eight) Branch hours as needed for Pain (scale 4-6) or Pain (scale 7-10). May take 1 to 2 tablets Q8H as needed for pain furosemide Yes 60mg Take 60 mg U nivers 40 mg 2-05 by mouth ity of tablet 19:21: every morning Medical and Branch evening. KCL 10 mEq Yes 10meq Take 10 Uni vers tablet 2-05 mEq by ity of 19:21: mouth 2 (two) Medical times Branch daily. isosorbide Yes 30mg Take 30 mg U nivers mononitrate 2-05 by mouth ity of 30 mg 24 hr 19:21: [place] tablet [place] glimepiride Yes 1mg Take 1 mg U nivers 1 mg tablet 2-05 by mouth 2 it y of 19:21: (two) times Medical daily with Branch meals. gabapentin 0 Yes 100mg Take 100 [place] 100 mg 2-05 mg by ity of capsule 19:21: mouth 2 [place] 07 (two) Medical times Branch daily. insulin Yes .2U/kg/ 18 Units Uni vers glargine 2-05 d (rounded ity of (LANTUS 03:00: from 17.96 [place] U-100) 00 Units = Medical injection 0.2 Branch 18 Units Units/kg/d ay ?89.8 kg), Subcutaneo us, QHS, First dose on Thu06/28/20 at 2100, Until Discontinu ed, Routine atorvastati Yes 20mg 20 mg, Univ ers n (LIPITOR) 2-05 Oral, QHS, it y of tablet 20 03:00: First dose [place] mg 00 on Thu Medical 06/28/20 at Branch 2100, Until Discontinu ed, Routine metoprolol 2020-0 Yes [id number] 50mg Take 1 [facility] succinate 2-05 tablet by ity o f XL 50 mg 24 00:00: mouth 2 [place] hr tablet 00 (two) Medical times Branch daily. metoprolol Yes [id number] 50mg Take 1 [facility] succinate 2-05 tablet by ity o f XL 50 mg 24 00:00: mouth 2 [place] hr tablet 00 (two) Medical times Branch daily. metoprolol 2020-0 Yes [id number] 50mg Take 1 [facility] succinate 2-05 tablet by ity o f XL 50 mg 24 00:00: mouth 2 [place] hr tablet 00 (two) Medical times Branch daily. metoprolol Yes [id number] 50mg Take 1 [facility] succinate 2-05 tablet by ity o f XL 50 mg 24 00:00: mouth 2 [place] hr tablet 00 (two) Medical times Branch daily. metoprolol 2020-2020- No [id number] 50mg Take 1 [facility] succinate 2-05 10-05 tablet by ity of XL 50 mg 24 00:00: 00:00 mouth 2 [place] hr tablet 00 :00 (two) Medical times Branch daily. glucagon Yes 1mg 1 mg, Univers (GLUCAGEN 2-04 Intramuscu ity of DIAGNOSTIC 22:45: lar, PRN, [place] KIT) 15 Starting Medical injection 1 Thu21 Br anch mg at 1645, Until Discontinu ed, JOCELYN, Blood Glucose < or = 70 mg/dL and patient is unable to swallow or has mental changes. dextrose 50 Yes 25mL 25 mL, Univ ers % in water 2-04 Slow IV ity of (D50W) 22:45: Push, PRN, [place] injection 15 Starting Medica l 25 mL [facility] 06/28/20 Branch at 1645, Until Discontinu ed, JOCELYN, Blood Glucose < or = 70 mg/dL and patient is unable to swallow or has mental status changes. cyanocobala 202- No 1000ug 1,000 mcg, Univers min 06-28 02-04 Intramuscu ity of (VITAMIN 21:31: 22:58 [place], ONCE, [place] B12) 00 :00 1 dose, Medical injection [facility] 06/28/20 Bran ch 1,000 mcg at 1545, Routine morpHINE 2020- No 2mg 2 mg, Slow [place] injection 2 06-28 02-04 IV Push, ity of mg 20:45: 19:54 ONCE NOW, [place] 00 :00 1 dose, Medical [facility] 06/28/20 Branch at 1445, Routine apixaban Yes 5mg 5 mg, Univers (ELIQUIS) 2-04 Oral, BID, ity of tablet 5 mg 19:54: First dose [place] 13 on [facility] [facility] 06/28/20 at Branch 2000, Until Discontinu ed, Routine lisinopriL Yes 5mg 5 mg, Univer s (PRINIVIL,Z 2-04 Oral, ity of ESTRIL) 15:00: DAILY, [place] tablet 5 mg 00 First dose Me dical (after Branch last modificati on) on [place] 06/28/20 at 0900, Until Discontinu ed, Routine tamsulosin Yes .4mg 0.4 mg, Univ ers (FLOMAX) 2-04 Oral, ity of capsule 0.4 15:00: DAILY, [place] mg 00 First dose Medical on [place] Branch 06/28/20 at 0900, Until Discontinu ed, Routine Polyethylen Yes 17g 17 g, Unive rs e Glycol 2-04 Oral, ity of 3350 15:00: QTUE/THURS [place] (MIRALAX) 00 /THU, Medical powder 17 g First dose Br anch on [place] 06/28/20 at 0900, Until Discontinu ed, Routine pantoprazol Yes 40mg 40 mg, Univ ers e 2-04 Oral, ity of (PROTONIX) 15:00: DAILY, [place] EC tablet 00 First dose Medi anabell 40 mg on [facility] Branch 06/28/20 at 0900, Until Discontinu ed, Routine magnesium Yes 400mg 400 mg, Univ ers oxide 2-04 Oral, ity of (MAG-OX 15:00: DAILY, [place] 400) tablet 00 First dose Me dical 400 mg on [facility] Branch 06/28/20 at 0900, Until Discontinu ed, Routine isosorbide Yes 30mg 30 mg, Unive rs mononitrate 2-04 Oral, ity of (IMDUR) 24 15:00: DAILY, [place] hr tablet 00 First dose Medi anabell 30 mg on [facility] Branch 06/28/20 at 0900, Until Discontinu ed, Routine digoxin Yes 125ug 125 mcg, Unive rs (LANOXIN) 2-04 Oral, ity of tablet 125 15:00: DAILY, [place] mcg 00 First dose Medical on [facility] Branch 06/28/20 at 0900, Until Discontinu ed, Routine Sliding Yes Subcutaneo Univ ers Scale 2-04 us, TID ity of Insulin - 14:00: MEALS+HS, [place] Lispro 00 First dose Medical (HumaLOG) + on [facility] Branch [facility] 06/28/20 at Testing 0800, Until Discontinu ed, Routine sennosides- Yes 1{tbl} 1 tablet, Univers docusate 2-04 Oral, BID, ity o f sodium 14:00: First dose [place] (SENOKOT-S) [facility]20 at Branc h per tablet 0800, 1 tablet Until Discontinu ed, Routine KCL 2020-0 Yes 10meq 10 mEq, Univers (KLOR-CON 2-04 Oral, BID, ity of M10) tablet 14:00: First dose [place] 10 mEq 00 on [facility] 06/28/20 at Branch 0800, Until Discontinu ed, Routine gabapentin Yes 100mg 100 mg, Uni vers (NEURONTIN) 2-04 Oral, BID, it y of capsule 100 14:00: First dose [place] mg 00 on [facility] 06/28/20 at Branch 0800, Until Discontinu ed, Routine glipiZIDE Yes 2.5mg 2.5 mg, Univ ers (GLUCOTROL) 2-04 Oral, ity of tablet 2.5 13:30: BIDAC, [place] mg 00 First dose Medical on [facility] 06/28/20 at 0730, Until Discontinu ed, Routine levothyroxi Yes 50ug 50 mcg, Uni vers ne 2-04 Oral, ity of (SYNTHROID) 12:00: QAM-0600, [place] tablet 50 00 First dose Medi anabell mcg on [facility] 06/28/20 at 0600, Until Discontinu ed, Routine furosemide No 80mg 80 mg, IV U nivers (LASIX) 2 02-05 Push, Q8H, ity o f injection 12:00: 17:27 First dose [place] 80 mg 00 :59 on [facility] 06/28/20 at Branch 0600, Until Discontinu ed, Routine spironolact Yes 25mg 25 mg, Univ ers one 2-04 Oral, ity of (ALDACTONE) 09:00: DAILY, [place] tablet 25 00 First dose Medi anabell mg on [facility] 06/28/20 at 0300, Until Discontinu ed, Routine metoprolol Yes 50mg 50 mg, Unive rs succinate 2-04 Oral, BID, ity of XL (TOPROL 09:00: First dose [place] XL) tablet 00 on [facility] 50 mg 06/28/20 at Branch 0300, Until Discontinu ed, Routine ondansetron Yes 4mg 4 mg, Slow Univers (ZOFRAN 204 IV Push, ity of (PF)) 08:53: Q6HPRN, [place] injection 4 48 Starting Medi anabell mg [facility] 06/28/20 Branch at 0253, Until Discontinu ed, Routine, Nausea and Vomiting (N/V) melatonin Yes 3mg 3 mg, Univers (MELATIN) 2-04 Oral, QHS, ity of tablet 3 mg 08:45: First dose [place] 00 on [facility] Medical 06/28/20 at Branch 0245, Until Discontinu ed, Routine aspirin Yes 81mg 81 mg, Univers chewable 2-04 Oral, QAM ity of tablet 81 08:45: WITH [place] mg 00 BREAKFAST, Medical First dose Branch on [facility] 06/28/20 at 0245, Until Discontinu ed, Routine TRAMADOL 2020- No Take by Unive rs HCL 06-28- mouth. ity of (TRAMADOL 08:39: 00:00 [place] ORAL) 21 :00 Medical Branch clopidogrel 2020- No 75mg Take 75 mg Univers (PLAVIX) 75 06-28 by mouth ity of mg tablet 08:39: 00:00 daily. [place] 21 :00 Medical Branch fluocinonid 2020- No Apply to U nivers e 0.05 % 06-28 area(s) 2 ity o f solution 08:39: 00:00 (two) [place] 21 :00 times Medical daily. Branch lubiproston 2020- No 8ug Take 8 mcg Univers e (AMITIZA) 06-28 by mouth 2 i ty of 8 mcg 08:39: 00:00 (two) [place] capsule 21 :00 times Medical daily with [place] meals. Psyllium 2020- No 1{packa Take 1 Uni vers Husk-Sucros 06-28 ge} Package by i ty of e (DAILY 08:39: 00:00 mouth. [place] FIBER, 21 :00 Medical PSYLLIUM-KIM Branch CROSE,) 3.4 gram/12 gram Powd traMADoL Yes 50mg 50 mg, Univers (ULTRAM) 2- Oral, ity of tablet 50 08:38: TIDPRN, [place] mg 22 Starting Medical [facility] 06/28/20 Branch at 0238, Until Discontinu ed, Routine, Pain (scale 4-6) ALPRAZolam Yes .5mg 0.5 mg, Univ ers (XANAX) 2-04 Oral, ity of tablet 0.5 08:36: TIDPRN, [place] mg 06 Starting Medical [place] 06/28/20 Branch at 0236, Until Discontinu ed, Routine, anxiety, insomnia furosemide 2020- No 40mg 40 mg, IV U nivers (LASIX) 06-28 Push, ity of injection 02:45: 02:24 ONCE, 1 [place] 40 mg 00 :00 dose, Wed Medical 06/27/20 at Branch 2044, JOCELYN FENTanyl PF 2020- No 25ug 25 mcg, [place] (SUBLIMAZE 06-28 Slow IV ity o f (PF)) 02:45: 02:24 Push, [place] injection 00 :00 ONCE, 1 Medical 25 mcg dose, [facility] Branch 06/27/20 at 2044, STAT levoFLOXaci 2020- No 750mg 750 mg, IV Univers n in D5W 06-28 Piggyback, ity of (LEVAQUIN) 02:45: 05:08 ONCE, 1 [place] 750 mg/150 00 :00 dose, Wed Medi anabell mL 06/27/20 at [place] Piggyback 2044, 150 750 mg mL
Reas on for Anti-Infec tive: Documented Infection< br>Documen beatrice Infection Site: Respirator y
Durat ion of Therapy: Other (see Comments) NaCl 0.9% 2020- No 500mL at 999 Univ ers (NS) bolus 06-28 mL/hr, 500 it y of infusion 02:00: 03:00 mL, IV [place] 500 mL 00 :00 Infusion, Medical ONCE, 1 Branch dose, 06/27/20 at 2000, STAT iohexol 2020- No 100mL 100 mL, Unive rs (OMNIPAQUE 06-28 Intravenou it y of 350 01:30: 01:30 s, ONCE, 1 [place] BULK-100 00 :00 dose, Wed Medica l mL) 06/27/20 at [place] injection 1930, 100 mL Routine aspirin 81 Yes 81mg Take 81 mg U nivers mg chewable 5-16 by mouth ity of tablet 15:34: daily. [place] 30 [facility] atorvastati Yes 20mg Take 20 mg Univers n 20 mg 5-16 by mouth ity of tablet 15:34: at [place] 30 bedtime. Medical Branch Cholecalcif Yes 400U Take 400 [place] joanne, 5-16 Units by ity of Vitamin D3, 15:34: mouth [place] 400 unit 30 daily. Medical capsule Branch clopidogrel Yes 75mg Take 75 mg Univers (PLAVIX) 75 5-16 by mouth ity of mg tablet 15:34: daily. [place] [address] Medical Branch cyanocobala Yes 5000ug Take 5,000 Univers min, 5-16 mcg by ity of vitamin 15:34: mouth [place] B-12, 5,000 30 daily. Medica l mcg TbDL Branch digoxin 125 Yes 125ug Take 125 U nivers mcg tablet 5-16 mcg by ity of 15:34: mouth [place] 30 daily. Medical Branch fluocinonid Yes Apply to [place] e 0.05 % 5-16 area(s) 2 ity of solution 15:34: (two) [place] 30 times Medical daily. Branch levothyroxi Yes 50ug Take 50 Uni vers ne 50 mcg 5-16 mcg by ity of tablet 15:34: mouth [place] 30 every Medical morning. Branch lisinopril Yes 10mg Take 10 mg U nivers 10 mg 5-16 by mouth ity of tablet 15:34: daily. [place] [address] Medical Branch lubiproston Yes 8ug Take 8 mcg Univers e (AMITIZA) 5-16 by mouth 2 it y of 8 mcg 15:34: (two) [place] capsule 30 times Medical daily with Branch meals. magnesium Yes 400mg Take 400 Uni vers oxide 400 5-16 mg by ity of mg tablet 15:34: mouth [place] 30 daily. Medical Branch OMEGA-3 Yes 1000mg Take 1,000 [place] FATTY 5-16 mg by ity of ACIDS/FISH 15:34: mouth 2 [place] OIL (OMEGA 30 (two) Medical 3 FISH OIL times Branch ORAL) daily. pantoprazol Yes 40mg Take 40 mg Univers e 40 mg EC 5-16 by mouth ity o f tablet 15:34: daily. [place] [address] Medical Branch Psyllium 0 Yes 1{packa Take 1 Univ ers [place]k-Sucros 5-16 ge} Package by it y of e (DAILY 15:34: mouth. [place] FIBER, 30 Medical PSYLLIUM-KIM Branch CROSE,) 3.4 gram/12 gram Powd tamsulosin 2017-0 Yes .4mg Take 0.4 Uni vers 0.4 mg 24 5-16 mg by ity of hr capsule 15:34: mouth [place] 30 daily. Medical Branch traMADOL 50 20180 Yes 50mg Take 50 mg Univers mg tablet 5-16 by mouth 3 ity of 15:34: (three) [place] 30 times Medical daily. Branch furosemide 20180 Yes 40mg Take 40 mg U nivers 40 mg 5-16 by mouth ity of tablet 15:34: every [place] 30 morning Medical and Branch evening. KCL 10 mEq 2018-0 Yes 10meq Take 10 Uni vers tablet 5-16 mEq by ity of 15:34: mouth 2 [place] 30 (two) Medical times Branch daily. TRAMADOL Yes Take by [facility] s HCL 5-16 mouth. ity of (TRAMADOL 15:34: [place] ORAL) 30 Medical Branch ALPRAZOLAM 0 Yes 1mg Take 1 mg [place] (XANAX XR 5-16 by mouth ity of ORAL) 15:34: daily. [place] 30 Medical Branch Ascorbic 0 Yes 1000mg Take 1,000 U nivers Acid 1,000 5-16 mg by ity of mg TbSR 15:34: mouth 2 [place] 30 (two) Medical times Branch daily. aspirin 81 Yes 81mg Take 81 mg U nivers mg chewable 5-16 by mouth ity of tablet 15:34: daily. [place] 30 Medical Branch atorvastati 0 Yes 20mg Take 20 mg Univers n 20 mg 5-16 by mouth ity of tablet 15:34: at [place] 30 bedtime. Medical Branch Cholecalcif 0 Yes 400U Take 400 [place] joanne, 5-16 Units by ity of Vitamin D3, 15:34: mouth [place] 400 unit 30 daily. Medical capsule Branch clopidogrel 0 Yes 75mg Take 75 mg Univers (PLAVIX) 75 5-16 by mouth ity of mg tablet 15:34: daily. [place] 30 Medical Branch cyanocobala 0 Yes 5000ug Take 5,000 Univers min, 5-16 mcg by ity of vitamin 15:34: mouth [place] B-12, 5,000 30 daily. Medica l mcg TbDL Branch digoxin 125 [id number] Yes 125ug Take 125 U nivers mcg tablet 5-16 mcg by ity of 15:34: mouth [place] 30 daily. Medical Branch fluocinonid Yes Apply to [place] e 0.05 % 5-16 area(s) 2 ity of solution 15:34: (two) [place] 30 times Medical daily. Branch levothyroxi Yes 50ug Take 50 Uni vers ne 50 mcg 5-16 mcg by ity of tablet 15:34: mouth [place] 30 every Medical morning. Branch lisinopril Yes 10mg Take 10 mg U nivers 10 mg 5-16 by mouth ity of tablet 15:34: daily. 30 Medical Branch lubiproston Yes 8ug Take 8 mcg Univers e (AMITIZA) 5-16 by mouth 2 it y of 8 mcg 15:34: (two) [place] capsule 30 times Medical daily with Branch meals. magnesium Yes 400mg Take 400 Uni vers oxide 400 5-16 mg by ity of mg tablet 15:34: mouth [place] 30 daily. Medical Branch OMEGA-3 Yes 1000mg Take 1,000 [place] FATTY 5-16 mg by ity of ACIDS/FISH 15:34: mouth 2 [place] OIL (OMEGA 30 (two) Medical 3 FISH OIL times Branch ORAL) daily. pantoprazol Yes 40mg Take 40 mg Univers e 40 mg EC 5-16 by mouth ity o f tablet 15:34: daily. 30 Medical Branch Psyllium Yes 1{packa Take 1 Univ ers [place]k-[place]ucros 5-16 ge} Package by it y of e (DAILY 15:34: mouth. [place] FIBER, 30 Medical PSYLLIUM-KIM Branch CROSE,) 3.4 gram/12 gram Powd tamsulosin 2017-0 Yes .4mg Take 0.4 Uni vers 0.4 mg 24 5-16 mg by ity of hr capsule 15:34: mouth [place] 30 daily. Medical Branch traMADOL 50 Yes 50mg Take 50 mg Univers mg tablet 5-16 by mouth 3 ity of 15:34: (three) [place] 30 times Medical daily. Branch furosemide 0 Yes 40mg Take 40 mg U nivers 40 mg 5-16 by mouth ity of tablet 15:34: every [place] 30 morning Medical and Branch evening. KCL 10 mEq 2018 Yes 10meq Take 10 Uni vers tablet 5-16 mEq by ity of 15:34: mouth 2 [place] 30 (two) Medical times Branch daily. TRAMADOL Yes Take by Univer s HCL 5-16 mouth. ity of (TRAMADOL 15:34: [place] ORAL) 30 Medical Branch ALPRAZOLAM Yes 1mg Take 1 mg [place] (XANAX XR 5-16 by mouth ity of ORAL) 15:34: daily. [place] [address] Medical Branch Ascorbic Yes 1000mg Take 1,000 U nivers Acid 1,000 5-16 mg by ity of mg TbSR 15:34: mouth 2 [place] 30 (two) Medical times Branch daily. aspirin 81 Yes 81mg Take 81 mg U nivers mg chewable 5-16 by mouth ity of tablet 15:34: daily. [place] [address] Medical Branch atorvastati Yes 20mg Take 20 mg Univers n 20 mg 5-16 by mouth ity of tablet 15:34: at [place] 30 bedtime. Medical Branch Cholecalcif Yes 400U Take 400 [place] joanne, 5-16 Units by ity of Vitamin D3, 15:34: mouth [place] 400 unit 30 daily. Medical capsule Branch clopidogrel Yes 75mg Take 75 mg Univers (PLAVIX) 75 5-16 by mouth ity of mg tablet 15:34: daily. [place] [address] Medical Branch cyanocobala 0 Yes 5000ug Take 5,000 Univers min, 5-16 mcg by ity of vitamin 15:34: mouth [place] B-12, 5,000 30 daily. Medica l mcg TbDL Branch digoxin 125 [id number] Yes 125ug Take 125 U nivers mcg tablet 5-16 mcg by ity of 15:34: mouth [place] 30 daily. Medical Branch fluocinonid Yes Apply to [place] e 0.05 % 5-16 area(s) 2 ity of solution 15:34: (two) [place] 30 times Medical daily. Branch levothyroxi Yes 50ug Take 50 Uni vers ne 50 mcg 5-16 mcg by ity of tablet 15:34: mouth [place] 30 every Medical morning. Branch lisinopril 0 Yes 10mg Take 10 mg U nivers 10 mg 5-16 by mouth ity of tablet 15:34: daily. [place] 30 Medical Branch lubiproston 2018-0 Yes 8ug Take 8 mcg Univers e (AMITIZA) 5-16 by mouth 2 it y of 8 mcg 15:34: (two) [place] capsule 30 times Medical daily with Branch meals. magnesium 2018-0 Yes 400mg Take 400 Uni vers oxide 400 5-16 mg by ity of mg tablet 15:34: mouth [place] 30 daily. Medical Branch OMEGA-3 2018-0 Yes 1000mg Take 1,000 [place] FATTY 5-16 mg by ity of ACIDS/FISH 15:34: mouth 2 [place] OIL (OMEGA 30 (two) Medical 3 FISH OIL times Branch ORAL) daily. pantoprazol 0 Yes 40mg Take 40 mg Univers e 40 mg EC 5-16 by mouth ity o f tablet 15:34: daily. [place] 30 Medical Branch Psyllium Yes 1{packa Take 1 Univ ers [place]k-[place]ucros 5-16 ge} Package by it y of e (DAILY 15:34: mouth. [place] FIBER, 30 Medical PSYLLIUM-KIM Branch CROSE,) 3.4 gram/12 gram Powd tamsulosin 2017-0 Yes .4mg Take 0.4 Uni vers 0.4 mg 24 5-16 mg by ity of hr capsule 15:34: mouth [place] 30 daily. Medical Branch traMADOL 50 Yes 50mg Take 50 mg Univers mg tablet 5-16 by mouth 3 ity of 15:34: (three) [place] 30 times Medical daily. Branch furosemide 0 Yes 40mg Take 40 mg U nivers 40 mg 5-16 by mouth ity of tablet 15:34: every [place] 30 morning Medical and Branch evening. KCL 10 mEq 2018-0 Yes 10meq Take 10 Uni vers tablet 5-16 mEq by ity of 15:34: mouth 2 30 (two) Medical times Branch daily. TRAMADOL 2017-0 Yes Take by Univer s HCL 5-16 mouth. ity of (TRAMADOL 15:34: [place] ORAL) 30 Medical Branch ALPRAZOLAM 2017-0 Yes 1mg Take 1 mg [place] (XANAX XR 5-16 by mouth ity of ORAL) 15:34: daily. [place] 30 Medical Branch Ascorbic Yes 1000mg Take 1,000 U nivers Acid 1,000 5-16 mg by ity of mg TbSR 15:34: mouth 2 [place] 30 (two) Medical times Branch daily. aspirin 81 Yes 81mg Take 81 mg U nivers mg chewable 5-16 by mouth ity of tablet 15:34: daily. [place] [address] Medical Branch atorvastati Yes 20mg Take 20 mg Univers n 20 mg 5-16 by mouth ity of tablet 15:34: at [place] 30 bedtime. Medical Branch Cholecalcif Yes 400U Take 400 [place] joanne, 5-16 Units by ity of Vitamin D3, 15:34: mouth [place] 400 unit 30 daily. Medical capsule Branch clopidogrel Yes 75mg Take 75 mg Univers (PLAVIX) 75 5-16 by mouth ity of mg tablet 15:34: daily. [place] [address] Medical Branch cyanocobala Yes 5000ug Take 5,000 Univers min, 5-16 mcg by ity of vitamin 15:34: mouth [place] B-12, 5,000 30 daily. Medica l mcg TbDL Branch digoxin 125 Yes 125ug Take 125 U nivers mcg tablet 5-16 mcg by ity of 15:34: mouth [place] 30 daily. Medical Branch fluocinonid Yes Apply to [place] e 0.05 % 5-16 area(s) 2 ity of solution 15:34: (two) [place] 30 times Medical daily. Branch levothyroxi Yes 50ug Take 50 Uni vers ne 50 mcg 5-16 mcg by ity of tablet 15:34: mouth [place] 30 every Medical morning. Branch lisinopril Yes 10mg Take 10 mg U nivers 10 mg 5-16 by mouth ity of tablet 15:34: daily. [place] [address] Medical Branch lubiproston Yes 8ug Take 8 mcg Univers e (AMITIZA) 5-16 by mouth 2 it y of 8 mcg 15:34: (two) [place] capsule 30 times Medical daily with Branch meals. magnesium 2018 Yes 400mg Take 400 Uni vers oxide 400 5-16 mg by ity of mg tablet 15:34: mouth [place] 30 daily. Medical Branch OMEGA-3 Yes 1000mg Take 1,000 [place] FATTY 5-16 mg by ity of ACIDS/FISH 15:34: mouth 2 [place] OIL (OMEGA 30 (two) Medical 3 FISH OIL times Branch ORAL) daily. pantoprazol Yes 40mg Take 40 mg Univers e 40 mg EC 5-16 by mouth ity o f tablet 15:34: daily. [place] 30 Medical Branch Psyllium 2017- Yes 1{packa Take 1 Univ ers [place] 5-16 ge} Package by it y of e (DAILY 15:34: mouth. [place] FIBER, 30 Medical PSYLLIUM-KIM Branch CROSE,) 3.4 gram/12 gram Powd tamsulosin 2017- Yes .4mg Take 0.4 Uni vers 0.4 mg 24 5-16 mg by ity of hr capsule 15:34: mouth [place] 30 daily. Medical Branch traMADOL 50 Yes 50mg Take 50 mg Univers mg tablet 5-16 by mouth 3 ity of 15:34: (three) 30 times Medical daily. Branch furosemide Yes 40mg Take 40 mg U nivers 40 mg 5-16 by mouth ity of tablet 15:34: every [place] 30 morning Medical and Branch evening. KCL 10 mEq 2017- Yes 10meq Take 10 Uni vers tablet 5-16 mEq by ity of 15:34: mouth 2 30 (two) Medical times Branch daily. TRAMADOL Yes Take by Univer s HCL 5-16 mouth. ity of (TRAMADOL 15:34: [place] ORAL) 30 Medical Branch ALPRAZOLAM Yes 1mg Take 1 mg [place] (XANAX XR 5-16 by mouth ity of ORAL) 15:34: daily. [place] 30 Medical Branch Ascorbic 2017- Yes 1000mg Take 1,000 U nivers Acid 1,000 5-16 mg by ity of mg TbSR 15:34: mouth 2 30 (two) Medical times Branch daily. benzonatate 2016-05 Yes 100mg Take 1 Uni vers 100 mg 2-08 capsule by ity of capsule 00:00: mouth [place] 00 every 8 Medical (eight) Branch hours as needed for Cough. metoprolol 2016-05 Yes 50mg Take 1 Unive rs tartrate 50 2-08 tablet by ity of mg tablet 00:00: mouth 2 00 (two) Medical times Branch daily. benzonatate 2016-05 Yes 100mg Take 1 Uni vers 100 mg 2-08 capsule by ity of capsule 00:00: mouth [place] 00 every 8 Medical (eight) Branch hours as needed for Cough. metoprolol 2016-05 Yes 50mg Take 1 Unive rs tartrate 50 2-08 tablet by ity of mg tablet 00:00: mouth 2 [place] 00 (two) Medical times Branch daily. benzonatate 2016-05 Yes 100mg Take 1 Uni vers 100 mg 2-08 capsule by ity of capsule 00:00: mouth [place] 00 every 8 Medical (eight) Branch hours as needed for Cough. benzonatate 2016-05 Yes 100mg Take 1 Uni vers 100 mg 2-08 capsule by ity of capsule 00:00: mouth [place] 00 every 8 Medical (eight) Branch hours as needed for Cough. benzonatate 2016-05 Yes 100mg Take 1 Uni vers 100 mg 2-08 capsule by ity of capsule 00:00: mouth [place] 00 every 8 Medical (eight) Branch hours as needed for Cough. benzonatate 2016-05 Yes 100mg Take 1 Uni vers 100 mg 2-08 capsule by ity of capsule 00:00: mouth [place] 00 every 8 Medical (eight) Branch hours as needed for Cough. metoprolol 2016-05 Yes 50mg Take 1 Unive rs tartrate 50 2-08 tablet by ity of mg tablet 00:00: mouth 2 [place] 00 (two) Medical times Branch daily. benzonatate 2016-05 Yes 100mg Take 1 Uni vers 100 mg 2-08 capsule by ity of capsule 00:00: mouth [place] 00 every 8 Medical (eight) Branch hours as needed for Cough. benzonatate 2016-05 Yes 100mg Take 1 Uni vers 100 mg 2-08 capsule by ity of capsule 00:00: mouth [place] 00 every 8 Medical (eight) Branch hours as needed for Cough. metoprolol 2016-05 Yes 50mg Take 1 Unive rs tartrate 50 2-08 tablet by ity of mg tablet 00:00: mouth 2 [place] 00 (two) Medical times Branch daily. benzonatate 2016-05- No 100mg Take 1 [place] 100 mg 2-08 10-04 capsule by ity of capsule 00:00: 00:00 mouth [place] 00 :00 every 8 Medical (eight) Branch hours as needed for Cough. metoprolol 2016-05- No 50mg Take 1 Univ ers tartrate 50 2-08 02-05 tablet by it y of mg tablet 00:00: 00:00 mouth 2 [place] 00 :00 (two) Medical times Branch daily. melatonin 2015-05 Yes 3mg Take 1 Univer s (MELATIN) 3 2-15 tablet by ity of mg tablet 00:00: mouth [place] 00 bedtime. Medical Branch metFORMIN 2015-05 Yes 500mg Take 1 Unive rs (GLUCOPHAGE 2-15 tablet by ity of ) 500 mg 00:00: mouth 2 [place] tablet 00 (two) Medical times Branch daily with meals. apixaban 2015-05 Yes 5mg Take 1 Univers (ELIQUIS) 5 2-15 tablet by ity of mg tablet 00:00: mouth 2 [place] 00 (two) Medical times Branch daily. metFORMIN 2015-05 Yes 500mg Take 1 Unive rs (GLUCOPHAGE 2-15 tablet by ity of ) 500 mg 00:00: mouth 2 [place] tablet 00 (two) Medical times Branch daily with meals. apixaban 2015-05 Yes 5mg Take 1 Univers (ELIQUIS) 5 2-15 tablet by ity of mg tablet 00:00: mouth 2 [place] 00 (two) Medical times Branch daily. metFORMIN 2015-05 Yes 500mg Take 1 Unive rs (GLUCOPHAGE 2-15 tablet by ity of ) 500 mg 00:00: mouth 2 [place] tablet 00 (two) Medical times Branch daily with meals. apixaban 2015-05 Yes 5mg Take 1 Univers (ELIQUIS) 5 2-15 tablet by ity of mg tablet 00:00: mouth 2 [place] 00 (two) Medical times Branch daily. metFORMIN 2015-05 Yes 500mg Take 1 Unive rs (GLUCOPHAGE 2-15 tablet by ity of ) 500 mg 00:00: mouth 2 [place] tablet 00 (two) Medical times Branch daily with meals. Polyethylen 2015-05 Yes 17g Take 1 Univ ers e Glycol 2-15 Packet by ity of 3350 00:00: mouth [place] (MIRALAX) 00 daily. Medical 17 gram Branch powder sennosides- 2015-05 Yes 1{tbl} Take 1 [facility] docusate 2-15 tablet by ity of sodium 00:00: mouth [place] (SENOKOT S) 00 daily. Medica l 8.6-50 mg Branch per tablet apixaban 2015-05 Yes 5mg Take 1 Univers (ELIQUIS) 5 2-15 tablet by ity of mg tablet 00:00: mouth 2 [place] 00 (two) Medical times Branch daily. montelukast 2015-05 Yes 10mg Take 1 Univ ers (SINGULAIR) 2-15 tablet by ity of 10 mg 00:00: mouth at [place] tablet 00 bedtime. Medical Branch apixaban 2015-05 Yes 5mg Take 1 Univers (ELIQUIS) 5 2-15 tablet by ity of mg tablet 00:00: mouth 2 [place] 00 (two) Medical times Branch daily. metFORMIN 2015-05 Yes 500mg Take 1 Unive rs (GLUCOPHAGE 2-15 tablet by ity of ) 500 mg 00:00: mouth 2 [place] tablet 00 (two) Medical times Branch daily with meals. melatonin 2015-05 Yes 3mg Take 1 Univer s (MELATIN) 3 2-15 tablet by [facility] mg tablet [place] bed[place]. [facility] metFORMIN 2015-05 Yes 500mg Take 1 Unive rs (GLUCOPHAGE 2-15 tablet by ity of ) 500 mg 00:00: mouth 2 [place] tablet 00 (two) Medical times Branch daily with meals. metFORMIN 2015-05 Yes 500mg Take 1 Unive rs (GLUCOPHAGE 2-15 tablet by ity of ) 500 mg 00:00: mouth 2 [place] tablet 00 (two) Medical times Branch daily with meals. metFORMIN 2015-05 Yes 500mg Take 1 Unive rs (GLUCOPHAGE 2-15 tablet by ity of ) 500 mg 00:00: mouth 2 [place] tablet 00 (two) Medical times Branch daily with meals. Polyethylen 2015-05 Yes 17g Take 1 Univ ers e Glycol 2-15 Packet by ity of 3350 00:00: mouth [place] (MIRALAX) 00 daily. Medical 17 gram Branch powder sennosides- 2015-05 Yes 1{tbl} Take 1 Un savanna docusate 2-15 tablet by ity of sodium 00:00: mouth [place] (SENOKOT S) 00 daily. Medica l 8.6-50 mg Branch per tablet apixaban 2015-05 Yes 5mg Take 1 Univers (ELIQUIS) 5 2-15 tablet by ity of mg tablet 00:00: mouth 2 [place] 00 (two) Medical times Branch daily. melatonin 2015-05 Yes 3mg Take 1 Univer s (MELATIN) 3 2-15 tablet by [facility] mg tablet [place] 00 bedtime. [facility] metFORMIN 2015-05 Yes 500mg Take 1 Unive rs (GLUCOPHAGE 2-15 tablet by ity of ) 500 mg 00:00: mouth 2 [place] tablet 00 (two) Medical times Branch daily with meals. Polyethylen 2015-05 Yes 17g Take 1 Univ ers e Glycol 2-15 Packet by ity of 3350 00:00: mouth [place] (MIRALAX) 00 daily. Medical 17 gram Branch powder sennosides- 2015-05 Yes 1{tbl} Take 1 Un sav[facility] docusate 2-15 tablet by ity of sodium 00:00: mouth [place] (SENOKOT S) 00 daily. Medica l 8.6-50 mg Branch per tablet apixaban 2015-05 Yes 5mg Take 1 Univers (ELIQUIS) 5 2-15 tablet by ity of mg tablet 00:00: mouth 2 [place] 00 (two) Medical times Branch daily. montelukast 2015-05 Yes 10mg Take 1 Univ ers (SINGULAIR) 2-15 tablet by ity of 10 mg 00:00: mouth at [place] tablet 00 bedtime. Medical Branch melatonin 2015-05 Yes 3mg Take 1 Univer s (MELATIN) 3 2-15 tablet by [facility] mg tablet 00:[place]: [place] 00 bedtime. [facility] metFORMIN 2015-05 Yes 500mg Take 1 Unive rs (GLUCOPHAGE 2-15 tablet by ity of ) 500 mg 00:00: mouth 2 [place] tablet 00 (two) Medical times Branch daily with meals. Polyethylen 2015-05 Yes 17g Take 1 Univ ers e Glycol 2-15 Packet by ity of 3350 00:00: mouth [place] (MIRALAX) 00 daily. Medical 17 gram Branch powder sennosides- 2015-05 Yes 1{tbl} Take 1 [facility] docusate 2-15 tablet by ity of sodium 00:00: mouth [place] (SENOKOT S) 00 daily. Medica l 8.6-50 mg Branch per tablet apixaban 2015-05 Yes 5mg Take 1 Univers (ELIQUIS) 5 2-15 tablet by ity of mg tablet 00:00: mouth 2 [place] 00 (two) Medical times Branch daily. melatonin 2015-05 Yes 3mg Take 1 Univer s (MELATIN) 3 2-15 tablet by [facility] mg tablet 00:00: [place] 00 bedtime. [facility] metFORMIN 2015-05 Yes 500mg Take 1 Unive rs (GLUCOPHAGE 2-15 tablet by ity of ) 500 mg 00:00: mouth 2 [place] tablet 00 (two) Medical times Branch daily with meals. Polyethylen 2015-05 Yes 17g Take 1 Univ ers e Glycol 2-15 Packet by ity of 3350 00:00: mouth [place] (MIRALAX) 00 daily. Medical 17 gram Branch powder sennosides- 2015-05 Yes 1{tbl} Take 1 [facility] docusate 2-15 tablet by ity of sodium 00:00: mouth [place] (SENOKOT S) 00 daily. Medica l 8.6-50 mg Branch per tablet apixaban 2015-05 Yes 5mg Take 1 Univers (ELIQUIS) 5 2-15 tablet by ity of mg tablet 00:00: mouth 2 [place] 00 (two) Medical times Branch daily. melatonin 2015-05 Yes 3mg Take 1 Univer s (MELATIN) 3 2-15 tablet by [facility] mg tablet 00:00: [place] 00 bedtime. [facility] metFORMIN 2015-05 Yes 500mg Take 1 Unive rs (GLUCOPHAGE 2-15 tablet by ity of ) 500 mg 00:00: mouth 2 [place] tablet 00 (two) Medical times Branch daily with meals. Polyethylen 2015-05 Yes 17g Take 1 Univ ers e Glycol 2-15 Packet by ity of 3350 00:00: mouth [place] (MIRALAX) 00 daily. Medical 17 gram Branch powder sennosides- 2015-05 Yes 1{tbl} Take 1 [facility] docusate 2-15 tablet by ity of sodium 00:00: mouth [place] (SENOKOT S) 00 daily. Medica l 8.6-50 mg Branch per tablet apixaban 2015-05 Yes 5mg Take 1 Univers (ELIQUIS) 5 2-15 tablet by ity of mg tablet 00:00: mouth 2 [place] 00 (two) Medical times Branch daily. melatonin 2015-05 Yes 3mg Take 1 Univer s (MELATIN) 3 2-15 tablet by [facility] mg tablet 00:00: [place] 00 bedtime. [facility] metFORMIN 2015-05 Yes 500mg Take 1 Unive rs (GLUCOPHAGE 2-15 tablet by ity of ) 500 mg 00:00: mouth 2 [place] tablet 00 (two) Medical times Branch daily with meals. Polyethylen 2015-05 Yes 17g Take 1 Univ ers e Glycol 2-15 Packet by ity of 3350 00:00: mouth [place] (MIRALAX) 00 daily. Medical 17 gram Branch powder sennosides- 2015-05 Yes 1{tbl} Take 1 [facility] docusate 2-15 tablet by ity of sodium 00:00: mouth [place] (SENOKOT S) 00 daily. Medica l 8.6-50 mg Branch per tablet Polyethylen 2015-05 Yes 17g Take 1 Univ ers e Glycol 2-15 Packet by ity of 3350 00:00: mouth [place] (MIRALAX) 00 daily. Medical 17 gram Branch powder sennosides- 2015-05 Yes 1{tbl} Take 1 [facility] docusate 2-15 tablet by ity of sodium 00:00: mouth [place] (S[place]OKOT S) 00 daily. Medica l 8.6-50 mg Branch per tablet apixaban 2015-05 Yes 5mg Take 1 Univers (ELIQUIS) 5 2-15 tablet by ity of mg tablet 00:00: mouth 2 [place] 00 (two) Medical times Branch daily. metFORMIN 2015-05 Yes 500mg Take 1 Unive rs (GLUCOPHAGE 2-15 tablet by ity of ) 500 mg 00:00: mouth 2 [place] tablet 00 (two) Medical times Branch daily with meals. apixaban 2015-05 Yes 5mg Take 1 Univers (ELIQUIS) 5 2-15 tablet by ity of mg tablet 00:00: mouth 2 [place] 00 (two) Medical times Branch daily. montelukast 2015-05 Yes 10mg Take 1 Univ ers (SINGULAIR) 2-15 tablet by ity of 10 mg 00:00: mouth at [place] tablet 00 bedtime. Medical Branch melatonin 2015-05 Yes 3mg Take 1 Univer s (MELATIN) 3 2-15 tablet by [facility] mg tablet 00:00: [place] 00 bedtime. [facility] metFORMIN 2015-05 Yes 500mg Take 1 Unive rs (GLUCOPHAGE 2-15 tablet by ity of ) 500 mg 00:00: mouth 2 [place] tablet 00 (two) Medical times Branch daily with meals. Polyethylen 2015-05 Yes 17g Take 1 Univ ers e Glycol 2-15 Packet by ity of 3350 00:00: mouth [place] (MIRALAX) 00 daily. Medical 17 gram Branch powder sennosides- 2015-05 Yes 1{tbl} Take 1 Un [facility] docusate 2-15 tablet by ity of sodium 00:00: mouth [place] (S[place]OT S) 00 daily. Medica l 8.6-50 mg Branch per tablet apixaban 2015-05 Yes 5mg Take 1 Univers (ELIQUIS) 5 2-15 tablet by ity of mg tablet 00:00: mouth 2 [place] 00 (two) Medical times Branch daily. metFORMIN 2015-05 Yes 500mg Take 1 Unive rs (GLUCOPHAGE 2-15 tablet by ity of ) 500 mg 00:00: mouth 2 [place] tablet 00 (two) Medical times Branch daily with meals. Polyethylen 2015-05 Yes 17g Take 1 Univ ers e Glycol 2-15 Packet by ity of 3350 00:00: mouth [place] (MIRALAX) 00 daily. Medical 17 gram Branch powder sennosides- 2015-05 Yes 1{tbl} Take 1 [facility] docusate 2-15 tablet by ity of sodium 00:00: mouth [place] ([place]OT S) 00 daily. Medica l 8.6-50 mg Branch per tablet apixaban 2015-05 Yes 5mg Take 1 Univers (ELIQUIS) 5 2-15 tablet by ity of mg tablet 00:00: mouth 2 [place] 00 (two) Medical times Branch daily. metFORMIN 2015-05 Yes 500mg Take 1 Unive rs (GLUCOPHAGE 2-15 tablet by ity of ) 500 mg 00:00: mouth 2 [place] tablet 00 (two) Medical times Branch daily with meals. Polyethylen 2015-05 Yes 17g Take 1 Univ ers e Glycol 2-15 Packet by ity of 3350 00:00: mouth [place] (MIRALAX) 00 daily. Medical 17 gram Branch powder sennosides- 2015-05 Yes 1{tbl} Take 1 [facility] docusate 2-15 tablet by ity of sodium 00:00: mouth [place] ([place] S) 00 daily. Medica l 8.6-50 mg Branch per tablet apixaban 2015-05 Yes 5mg Take 1 Univers (ELIQUIS) 5 2-15 tablet by ity of mg tablet 00:00: mouth 2 [place] 00 (two) Medical times Branch daily. metFORMIN 2015-05 Yes 500mg Take 1 Unive rs (GLUCOPHAGE 2-15 tablet by ity of ) 500 mg 00:00: mouth 2 [place] tablet 00 (two) Medical times Branch daily with meals. Polyethylen 2015-05 Yes 17g Take 1 Univ ers e Glycol 2-15 Packet by ity of 3350 00:00: mouth [place] (MIRALAX) 00 daily. Medical 17 gram Branch powder sennosides- 2015-05 Yes 1{tbl} Take 1 [facility] docusate 2-15 tablet by ity of sodium 00:00: mouth [place] (SEN[place]OT S) 00 daily. Medica l 8.6-50 mg Branch per tablet apixaban 2015-05 Yes 5mg Take 1 Univers (ELIQUIS) 5 2-15 tablet by ity of mg tablet 00:00: mouth 2 [place] 00 (two) Medical times Branch daily. metFORMIN 2015-05 Yes 500mg Take 1 Unive rs (GLUCOPHAGE 2-15 tablet by ity of ) 500 mg 00:00: mouth 2 [place] tablet 00 (two) Medical times Branch daily with meals. Polyethylen 2015-05 Yes 17g Take 1 Univ ers e Glycol 2-15 Packet by ity of 3350 00:00: mouth [place] (MIRALAX) 00 daily. Medical 17 gram Branch powder sennosides- 2015-05 Yes 1{tbl} Take 1 [facility] docusate 2-15 tablet by ity of sodium 00:00: mouth [place] (SENOKOT S) 00 daily. Medica l 8.6-50 mg Branch per tablet apixaban 2015-05 Yes 5mg Take 1 Univers (ELIQUIS) 5 2-15 tablet by ity of mg tablet 00:00: mouth 2 [place] 00 (two) Medical times Branch daily. apixaban 2015-05 Yes 5mg Take 1 Univers (ELIQUIS) 5 2-15 tablet by ity of mg tablet 00:00: mouth 2 [place] 00 (two) Medical times Branch daily. metFORMIN 2015-05 Yes 500mg Take 1 Unive rs (GLUCOPHAGE 2-15 tablet by ity of ) 500 mg 00:00: mouth 2 [place] tablet 00 (two) Medical times Branch daily with meals. montelukast 2015-05 Yes 10mg Take 1 Univ ers (SINGULAIR) 2-15 tablet by ity of 10 mg 00:00: mouth at [place] tablet 00 bedtime. Medical Branch apixaban 2015-05- No 5mg Take 1 Univer s (ELIQUIS) 5 2-15 09-20 tablet by it y of mg tablet 00:00: 00:00 [place] :00 (two) Medical times Branch daily. Polyethylen 2015-05- No 17g Take 1 Uni vers e Glycol 07-09 Packet by ity o f 3350 00:00: 00:00 mouth [place] (MIRALAX) 00 :00 daily. Medical 17 gram Branch powder sennosides- 2015-05- No 1{tbl} Take 1 U nivers docusate 07-09 tablet by ity o f sodium 00:00: 00:00 mouth [place] (SENOKOT S) 00 :00 daily. Medica l 8.6-50 mg Branch per tablet melatonin 2015-05- No 3mg Take 1 Unive rs (MELATIN) 3 2-15 10-04 tablet by it y of mg tablet 00:00: 00:00 mouth at [place] 00 :00 bedtime. Medical Branch montelukast 2015-05- No 10mg Take 1 Uni vers (SINGULAIR) 2-15 02-03 tablet by it y of 10 mg 00:00: 00:00 mouth at [place] tablet 00 :00 bedtime. [facility] Immunizations Ordered Filled Immunization Date Status Comments [facility] e Immunization Name Name Remdesivir 2021-11-21 Completed University of 00:00:00 [facility] Remdesivir 2021-11-21 Completed University of 00:00:00 [facility] Remdesivir 2021-11-21 Completed University of 00:00:00 [facility] Remdesivir 2021-11-21 Completed University of 00:00:00 [facility] Remdesivir 2021-11-21 Completed University of 00:00:00 [facility] Remdesivir 2021-11-21 Completed University of 00:00:00 [facility] Remdesivir 2021-11-21 Completed University of 00:00:00 [place] [facility] Remdesivir 2021-11-20 Completed University of 00:00:00 [place] [facility] Remdesivir 2021-11-20 Completed University of 00:00:00 [place] [facility] Remdesivir 2021-11-20 Completed University of 00:00:[address] [facility] Remdesivir 2021-11-20 Completed University of 00:00:00 [facility] Remdesivir 2021-11-20 Completed University of 00:00:00 [facility] Remdesivir 2021-11-20 Completed University of 00:00:00 [facility] Remdesivir 2021-11-20 Completed University of 00:00:00 [facility] Remdesivir 2021-11-19 Completed University of 00:00:00 [facility] Remdesivir 2021-11-19 Completed University of 00:00:00 [facility] Remdesivir 2021-11-19 Completed University of 00[facility]00:00 [facility] Remdesivir 2021-11-19 Completed University of 00:00:00 [facility] Remdesivir 2021-11-19 Completed University of 00:00:00 [facility] Remdesivir 2021-11-19 Completed University of 00:00:00 [facility] Remdesivir 2021-11-19 Completed University of 00:00:00 [facility] Remdesivir 2021-11-18 Completed University of 00:00:00 [facility] Remdesivir 2021-11-18 Completed University of 00:00:00 [facility] Remdesivir 2021-11-18 Completed University of 00:00:00 [facility] Remdesivir 2021-11-18 Completed University of 00:00:00 [facility] Remdesivir 2021-11-18 Completed University of 00:00:00 [facility] Remdesivir 2021-11-18 Completed University of 00:00:00 [facility] Remdesivir 2021-11-18 Completed University of 00:00:00 [facility] Vital Signs Vital Name Observation Time Observation Value Comments Source Systolic blood 2022-02-11 20:28:00 127 mm[Hg] Univer sity of pressure [facility] Diastolic blood 2022-02-11 20:28:00 65 mm[Hg] Unive rsity of pressure [place] [facility] Heart rate 2022-02-11 20:28:00 80 /min [facility] [place] [facility] Body temperature 2022-02-11 20:28:00 36.56 Lynda Univ ersity of [place] [facility] Respiratory rate 2022-02-11 20:28:00 18 /min Univ ersity of [place] [facility] Oxygen saturation in 2022-02-11 20:28:00 91 /min University of Arterial blood by [facility] anabell Pulse oximetry Branch Body height 2022-02-11 06:15:00 175.3 cm [facility] [place] [facility] Body weight 2022-02-11 06:15:00 77.973 kg [facility] [place] [facility] BMI 2022-02-11 06:15:00 25.39 kg/m2 [facility] [place] [facility] Systolic blood 2022-01-23 11:44:00 115 mm[Hg] Univer sity of pressure [place] [facility] Diastolic blood 2022-01-23 11:44:00 65 mm[Hg] Unive rsity of pressure [place] [facility] Heart rate 2022-01-23 11:44:00 60 /min [facility]i ty [facility] [place] [facility] Respiratory rate 2022-01-23 11:44:00 20 /min Univ ersity of [place] [facility] Oxygen saturation in 2022-01-23 11:44:00 93 /min University of Arterial blood by [facility] Pulse oximetry Branch Body temperature 2022-01-23 10:06:00 36.39 Lynda Univ ersity of [place] [facility] Body height 2022-01-23 10:06:00 180.3 cm Universi [facility] [place] [facility] Body weight 2022-01-23 10:06:00 83.915 kg [facility] [place] [facility] BMI 2022-01-23 10:06:00 25.80 kg/m2 [facility] [place] [facility] Heart rate 2022-01-06 12:45:00 73 /min [facility] [place] [facility] Oxygen saturation in 2022-01-06 12:45:00 96 /min University of Arterial blood by [facility] Pulse oximetry Branch Systolic blood 2022-01-06 12:00:00 137 mm[Hg] Univer sity of pressure [place] [facility] Diastolic blood 2022-01-06 12:00:00 78 mm[Hg] Unive rsity of pressure [place] [facility] Respiratory rate 2022-01-06 12:00:00 16 /min Univ ersity of [place] [facility] Body height 2022-01-06 10:49:00 180.3 cm [facility] [place] [facility] Body weight 2022-01-06 10:49:00 81.647 kg [facility] [place] [facility] BMI 2022-01-06 10:49:00 25.10 kg/m2 [facility] [place] [facility] Systolic blood 2021-12-18 02:00:00 121 mm[Hg] Univer sity of pressure [place] [facility] Diastolic blood 2021-12-18 02:00:00 65 mm[Hg] Unive rsity of pressure [place] [facility] Heart rate 2021-12-18 02:00:00 70 /min [facility] [place] [facility] Oxygen saturation in 2021-12-18 02:00:00 98 /min University of Arterial blood by [employer] Pulse oximetry Branch Respiratory rate 2021-12-18 01:00:00 15 /min Univ ersity of [place] [facility] Body temperature 2021-12-17 22:57:00 36.56 Lynda [facility] [place] [facility] Body weight 2021-12-17 22:57:00 84.823 kg [facility] [place] [facility] BMI 2021-12-17 22:57:00 26.08 kg/m2 [facility] [place] [facility] Systolic blood 2021-11-22 16:09:00 126 mm[Hg] Univer sity of pressure [place] [facility] Diastolic blood 2021-11-22 16:09:00 62 mm[Hg] Unive rsity of pressure [place] [facility] Heart rate 2021-11-22 16:09:00 49 /min [facility] [place] [facility] Body temperature 2021-11-22 16:09:00 35.56 Lynda [facility] [place] [facility] Respiratory rate 2021-11-22 16:09:00 17 /min Univ ersity [facility] [place] [facility] Oxygen saturation in 2021-11-22 16:09:00 93 /min University of Arterial blood by [employer] anabell Pulse oximetry Branch Body weight 2021-11-22 08:00:00 84.959 kg [facility] [place] [facility] BMI 2021-11-22 08:00:00 26.12 kg/m2 [facility] [place] [facility] Body height 2021-11-18 13:30:00 180.3 cm [facility] [place] [facility] Systolic blood 2021-09-11 13:00:00 150 mm[Hg] Univer sity of pressure [place] [facility] Diastolic blood 2021-09-11 13:00:00 97 mm[Hg] Unive rsity of pressure [place] [facility] Heart rate 2021-09-11 13:00:00 73 /min [facility] [place] [facility] Respiratory rate 2021-09-11 13:00:00 14 /min Univ ersity [facility] [place] [facility] Oxygen saturation in 2021-09-11 13:00:00 95 /min University of Arterial blood by [place] [employer] anabell Pulse oximetry Branch Body temperature 2021-09-11 10:14:03 36.33 Lynda Univ ersity of [place] [facility] Body height 2021-09-11 10:05:00 180.3 cm [facility] [place] [facility] Body weight 2021-09-11 10:05:00 84.823 kg [facility] [place] [facility] BMI 2021-09-11 10:05:00 26.08 kg/m2 [facility] [place] [facility] Systolic blood 2021-07-25 23:00:00 151 mm[Hg] Univer sity of pressure [place] [facility] Diastolic blood 2021-07-25 23:00:00 79 mm[Hg] Unive rsity of pressure [place] [facility] Heart rate 2021-07-25 23:00:00 64 /min [facility] [place] [facility] Respiratory rate 2021-07-25 23:00:00 16 /min Univ ersity of [place] [facility] Oxygen saturation in 2021-07-25 23:00:00 96 /min University of Arterial blood by [place] [employer] anabell Pulse oximetry Branch Body temperature 2021-07-25 21:21:00 36.94 Lynda Univ ersity [facility] [place] [facility] Body weight 2021-07-25 21:21:00 85.73 kg [facility]i [facility] [place] [facility] BMI 2021-07-25 21:21:00 26.36 kg/m2 [facility] [place] [facility] Systolic blood 2021-07-13 04:00:00 156 mm[Hg] Univer sity of pressure [place] [facility] Diastolic blood 2021-07-13 04:00:00 85 mm[Hg] Unive rsity of pressure [place] [facility] Heart rate 2021-07-13 04:00:00 74 /min [facility] [place] [facility] Respiratory rate 2021-07-13 04:00:00 17 /min Univ ersity [facility] [place] [facility] Oxygen saturation in 2021-07-13 04:00:00 93 /min University of Arterial blood by [place] [employer] anabell Pulse oximetry Branch Body temperature 2021-07-13 01:30:00 36.44 Lynda [facility] [place] [facility] Body height 2021-07-13 01:27:00 180.3 cm [facility] [place] [facility] Body weight 2021-07-13 01:27:00 85.73 kg [facility] [place] [facility] BMI 2021-07-13 01:27:00 26.36 kg/m2 [facility] [place] [facility] Systolic blood 2021-02-27 00:48:00 112 mm[Hg] Univer sity of pressure [place] [facility] Diastolic blood 2021-02-27 00:48:00 68 mm[Hg] Unive rsity of pressure [place] [facility] Heart rate 2021-02-27 00:48:00 82 /min [facility] [place] [facility] Body temperature 2021-02-27 00:48:00 36.06 Lynda [facility] [place] [facility] Respiratory rate 2021-02-27 00:48:00 18 /min Univ ersity [facility] [place] [facility] Oxygen saturation in 2021-02-27 00:48:00 92 /min University of Arterial blood by [place] [employer] anabell Pulse oximetry Branch Body height 2021-02-25 21:32:00 177.8 cm [facility] [place] [facility] Body weight 2021-02-25 21:32:00 85.957 kg [facility] [place] [facility] BMI 2021-02-25 21:32:00 27.19 kg/m2 [facility] [place] [facility] Systolic blood 2021-02-17 23:00:00 126 mm[Hg] Univer sity of pressure [place] [facility] Diastolic blood 2021-02-17 23:00:00 67 mm[Hg] Unive rsity of pressure [place] [facility] Heart rate 2021-02-17 23:00:00 67 /min [facility] [place] [facility] Respiratory rate 2021-02-17 23:00:00 22 /min Univ ersity [facility] [place] [facility] Oxygen saturation in 2021-02-17 23:00:00 96 /min University of Arterial blood by [place] [employer] anabell Pulse oximetry Branch Body temperature 2021-02-17 19:20:00 36.28 Lynda [facility] [place] [facility] Body weight 2021-02-17 19:20:00 93.895 kg [facility] [place] [facility] BMI 2021-02-17 19:20:00 29.70 kg/m2 [facility] [place] [facility] Systolic blood 2020-07-29 21:00:00 112 mm[Hg] Univer sity of pressure [place] [facility] Diastolic blood 2020-07-29 21:00:00 57 mm[Hg] Unive rsity of pressure [place] [facility] Heart rate 2020-07-29 21:00:00 66 /min [facility] [place] [facility] Respiratory rate 2020-07-29 21:00:00 20 /min Univ ersity [facility] [place] [facility] Oxygen saturation in 2020-07-29 21:00:00 100 /min University of Arterial blood by [place] [employer] anabell Pulse oximetry Branch Body temperature 2020-07-29 19:28:00 35.83 Lynda [facility] [place] [facility] Body weight 2020-07-29 19:28:00 93.895 kg [facility] [place] [facility] BMI 2020-07-29 19:28:00 29.70 kg/m2 [facility] [place] [facility] Systolic blood 2020-06-29 22:19:00 101 mm[Hg] Univer sity of pressure [place] [facility] Diastolic blood 2020-06-29 22:19:00 60 mm[Hg] Unive rsity of pressure [place] [facility] Heart rate 2020-06-29 22:06:00 92 /min [facility] [place] [facility] Body temperature 2020-06-29 22:06:00 37.06 Lynda [facility] [place] [facility] Respiratory rate 2020-06-29 22:06:00 18 /min Univ ersity [facility] [place] [facility] Oxygen saturation in 2020-06-29 22:06:00 98 /min University of Arterial blood by [place] [employer] Pulse oximetry Branch Body height 2020-06-28 09:00:00 177.8 cm [facility] [place] [facility] Body weight 2020-06-28 09:00:00 94.167 kg Universi [facility] BMI 2020-06-28 09:00:00 29.79 [facility] Sy[facility]olic blood 2019-09-01 15:06:00 161 mm[Hg] Univer sity of [facility] Diastolic blood 2019-09-01 15:06:00 82 mm[Hg] [facility] 2019-09-01 15:06:00 80 /min [facility] Respiratory rate 2019-09-01 15:06:00 20 /min [facility] Body height 2019-09-01 15:06:00 172.7 cm [facility] Body weight 2019-09-01 15:06:00 94.53 kg [facility] BMI 2019-09-01 15:06:00 31.69 kg/m2 [facility] Oxygen saturation in 2019-09-01 15:06:00 98 /min [facility] Arterial blood by [facility] Pulse oximetry Branch Procedures Procedure Date / Time Performing Clinician Source Performed DIGOXIN 2022-02-11 19:15:00 Marck Hollingsworth [facility] PROCALCITONIN 2022-02-11 16:49:00 [facility] POCT GLUCOSE 2022-02-11 16:40:00 [facility] (AUTOMATED) [facility] HB ECG ROUTINE & RHYTHM 2022-02-11 15:07:19 Macarena Hernandez [facility] POCT GLUCOSE 2022-02-11 13:11:00 [facility] (AUTOMATED) [facility] MAGNESIUM 2022-02-11 10:08:00 Russ Lexii [facility] TROPONIN I 2022-02-11 10:08:00 [facility]OL[facility] PANEL 2022-02-11 10:08:00 Lexii Solano [facility] (NA, K, CL, CO2, Medical Branch GLUCOSE, BUN, CREATININE, CA) XR CHEST 1 VW 2022-02-11 01:04:00 Jamari Floyd [facility] CT CHEST PULMONARY 2022-02-11 01:00:00 Jamari Floyd [facility] ANGIOGRAM Medical Branch TROPONIN I 2022-02-11 00:10:00 Jamari Floyd [facility] COMP. METABOLIC PANEL 2022-02-11 00:10:00 Jamari lFoyd [facility] ([id number]) Medical Branch DIGOXIN 2022-02-11 00:10:00 Marck Hollingsworth [facility] CBC WITH DIFF 2022-02-11 00:10:00 Jamari Floyd [facility] N-TERMINAL PRO-BNP 2022-02-11 00:10:00 Jamari Floyd [facility] COVID-19 (ID NOW RAPID 2022-02-11 00:10:00 Jamari Floyd [facility] TESTING) [facility] [place] HB ECG ROUTINE & RHYTHM 2022-02-11 00:06:21 [facility]-10 05:01:00 Doctor Unassigned, No [facility] Name Medical Branch XR CHEST 1 VW 2022-01-23 10:20:06 Malik Granados [facility] TROPONIN I 2022-01-23 10:08:00 Malik Granados [facility] COMP. METABOLIC PANEL 2022-01-23 10:08:00 Malik Granados [facility] ([id number]) Medical Branch CBC WITH DIFF 2022-01-23 10:08:00 Malik Granados [facility] PROTHROMBIN TIME / INR 2022-01-23 10:08:00 Malik Granados [facility] N-TERMINAL PRO-BNP 2022-01-23 10:08:00 Malik Granados [facility] COVID-19 (ID NOW RAPID 2022-01-23 10:08:00 Malik Granados [facility] TESTING) Medical Branch XR CHEST 1 VW 2022-01-06 11:07:40 Singer [facility] MAGNESIUM 2022-01-06 10:51:00 Singer [facility] TROPONIN I 2022-01-06 10:51:00 Singer [facility] COMP. METABOLIC PANEL 2022-01-06 10:51:00 Singer [facility] ([id number]) Medical Branch CBC WITH DIFF 2022-01-06 10:51:00 Singer [facility] N-TERMINAL PRO-BNP 2022-01-06 10:51:00 [facility] COVID-19 (ID NOW RAPID 2021-12-18 01:10:00 Carin Solis [facility] TESTING) [facility] [place] CT STROKE ANGIOGRAM 2021-12-18 00:21:46 Amisha [facility] HEAD [facility] Branch CT STROKE ANGIOGRAM 2021-12-18 00:21:46 Amisha [facility] NECK [facility] CT HEAD WO CONTRAST 2021-12-18 00:13:32 Amisha [facility] XR CHEST 1 VW 2021-12-17 23:52:00 Amisha [facility] TROPONIN I 2021-12-17 23:38:00 Amisha [facility] COMP. METABOLIC PANEL 2021-12-17 23:38:00 [id number] CBC WITH DIFF 2021-12-17 23:38:00 [facility] 2021-12-17 23:38:00 Amisha [facility] N-TERMINAL PRO-BNP 2021-12-17 23:38:00 Amisha [facility] POCT GLUCOSE 2021-11-22 16:08:00 [facility] (AUTOMATED) [facility] POCT GLUCOSE 2021-11-22 12:46:00 [facility] (AUTOMATED) Medical Branch POCT GLUCOSE 2021-11-21 21:55:00 [facility] (AUTOMATED) Medical Branch POCT GLUCOSE 2021-11-21 17:08:00 [facility] (AUTOMATED) Medical Branch POCT GLUCOSE 2021-11-21 13:07:00 [facility] (AUTOMATED) [facility] BASIC METABOLIC PANEL 2021-11-21 10:10:00 King [facility] (NA, K, CL, CO2, Medical Branch GLUCOSE, BUN, CREATININE, CA) CBC WITH DIFF 2021-11-21 10:10:00 King [facility] Branch POCT GLUCOSE 2021-11-21 04:51:00 [facility] (AUTOMATED) Medical Branch POCT GLUCOSE 2021-11-21 01:04:00 [facility] (AUTOMATED) [facility] POCT GLUCOSE 2021-11-20 21:12:00 [facility] (AUTOMATED) [facility] POCT GLUCOSE 2021-11-20 16:06:00 [facility] (AUTOMATED) [facility] POCT GLUCOSE 2021-11-20 12:42:00 [facility] (AUTOMATED) Medical Branch MAGNESIUM 2021-11-20 11:11:00 King [facility] TROPONIN I 2021-11-20 11:11:00 [employer] [facility] BASIC METABOLIC PANEL 2021-11-20 11:11:00 Jessica Owen [facility] (NA, K, CL, CO2, Medical Branch GLUCOSE, BUN, CREATININE, CA) CBC WITH DIFF 2021-11-20 11:11:00 King [facility] N-TERMINAL PRO-BNP 2021-11-20 11:11:00 [employer] [facility] POCT GLUCOSE 2021-11-20 01:51:00 [facility] (AUTOMATED) [facility] URIC ACID, URIC RANDOM 2021-11-19 22:09:00 Roshan Limon [facility] POCT GLUCOSE 2021-11-19 21:18:00 [facility] POCT GLUCOSE 2021-11-19 15:59:00 Garett Armas [facility] (AUTOMATED) [facility] TRANSTHORACIC ECHO 2021-11-19 15:50:00 [employer] [facility] (TTE) COMPLETE Medical Branch POCT GLUCOSE 2021-11-19 13:08:00 Mehul [facility] (AUTOMATED) Medical Branch PHOSPHORUS 2021-11-19 09:36:00 Mehul [facility] CREATINE KINASE 2021-11-19 09:36:00 Mehul [facility] URIC ACID 2021-11-19 09:36:00 Mehul [facility] MAGNESIUM 2021-11-19 09:36:00 Mehul [facility] TROPONIN I 2021-11-19 09:36:00 Mehul [facility] COMP. METABOLIC PANEL 2021-11-19 09:36:00 Mehul mateo [facility] ([id number]) [facility] CBC WITH DIFF 2021-11-19 09:36:00 Mehul [facility] N-TERMINAL PRO-BNP 2021-11-19 09:36:00 Garett Armas [facility] LACTIC ACID WHOLE BLOOD 2021-11-18 23:39:00 Morgan Lazar [facility] LACTATE DEHYDROGENASE 2021-11-18 23:30:00 Mehul [facility] TROPONIN I 2021-11-18 23:30:00 Mehul [facility] URINALYSIS 2021-11-18 18:03:00 Mehul [facility] URINE CULTURE 2021-11-18 18:03:00 Mehul [facility] PROTEIN CREAT RATIO 2021-11-18 18:03:[address] [facility] URINE RANDOM Medical Branch UREA NITROGEN, URINE 2021-11-18 18:03:00 Mehul mateo [facility] RANDOM [facility] SODIUM, URINE RANDOM 2021-11-18 18:03:00 Mehul Adnan [facility] TROPONIN I 2021-11-18 17:17:00 Mehul [facility] CREATINE KINASE 2021-11-18 14:38:00 Mehul [facility] C-REACTIVE PROTEIN 2021-11-18 14:38:00 Mehul mateo [facility] TROPONIN I 2021-11-18 14:38:00 Mehul [facility] PROTHROMBIN TIME / INR 2021-11-18 14:38:00 Mehul [facility] D-DIMER 2021-11-18 14:38:00 Mehul [facility] VITAMIN B12, LEVEL 2021-11-18 14:37:00 Mehul [facility] VITAMIN D, 25-OH 2021-11-18 14:37:00 Mehul [facility] PROCALCITONIN 2021-11-18 14:37:00 Mehul [facility] AC VBG + LACTIC ACID 2021-11-18 14:36:00 Mehul mateo [facility] XR CHEST 1 VW 2021-11-18 10:46:11 Singer Yovani [facility] COVID-19 (ID NOW RAPID 2021-11-18 10:39:00 Yovani Bautista [facility] PHOSPHORUS 2021-11-18 10:30:00 Mehul [facility] URIC ACID 2021-11-18 10:30:00 Mehul [facility] LIPASE 2021-11-18 10:30:00 Singer Yovani [facility] MAGNESIUM 2021-11-18 10:30:00 Singer Yovani [facility] TROPONIN I 2021-11-18 10:30:00 Yovani Bautista [facility] THYROID STIMULATING 2021-11-18 10:30:[address] [facility] HORMONE [facility] COMP. METABOLIC PANEL 2021-11-18 10:30:00 [id number] Medical Branch LIPID PANEL 2021-11-18 10:30:00 Mehul [facility] ([id number])(TOTAL Medical Branch CHOLESTEROL, TRIGLYCERIDES, HDL) IRON PANEL 2021-11-18 10:30:00 Mehul mateo [facility] DIGOXIN 2021-11-18 10:30:00 Mehul [facility] SEDIMENTATION RATE 2021-11-18 10:30:00 Mehul [facility] CBC WITH DIFF 2021-11-18 10:30:00 Singer [facility] GLYCOSYLATED HEMOGLOBIN 2021-11-18 10:30:00 Mehul [facility] (A1C) [facility] N-TERMINAL PRO-BNP 2021-11-18 10:30:00 Singer [facility] LACTIC ACID WHOLE BLOOD 2021-11-18 10:30:00 Singer [facility] HB ECG ROUTINE & RHYTHM 2021-11-18 10:23:37 Singer [facility] EKG-12 LEAD 2021-09-11 12:13:52 Malik Granados [facility] CT ABDOMEN PELVIS W 2021-09-11 12:02:00 Malik Granados [facility] CONTRAST [facility] LIPASE 2021-09-11 10:11:00 Malik Granados [facility] TROPONIN I 2021-09-11 10:11:00 Malik Granados [facility] COMP. METABOLIC PANEL 2021-09-11 10:11:00 Malik Granados [facility] ([id number]) Medical Branch DIGOXIN 2021-09-11 10:11:00 Malik Granados [facility] CBC WITH DIFF 2021-09-11 10:11:00 Malik Granados [facility] URINALYSIS 2021-09-11 10:11:00 Malik Granados [facility] POCT GLUCOSE 2021-09-11 10:02:00 Malik Granados [facility] (AUTOMATED) Medical Branch ASSIGNMENT OF BENEFITS 2021-07-25 22:26:25 Doctor Unassigned, No [facility] Name [facility] [place] XR CHEST 1 VW 2021-07-25 22:13:52 Monico Mariee [facility] URINALYSIS 2021-07-25 21:51:00 Monico Mariee [facility] LIPASE 2021-07-25 21:42:00 Monico Mariee [facility] MAGNESIUM 2021-07-25 21:42:00 Monico Mariee [facility] TROPONIN I 2021-07-25 21:42:00 Monico Mariee [facility] COMP. METABOLIC PANEL 2021-07-25 21:42:00 Monico Mariee [facility] ([id number]) Medical Branch DIGOXIN 2021-07-25 21:42:00 Monico Mariee [facility] CBC WITH DIFF 2021-07-25 21:42:00 Monico Mariee [facility] N-TERMINAL PRO-BNP 2021-07-25 21:42:00 Monico Mariee [facility] COVID-19 (ID NOW RAPID 2021-07-25 21:42:00 Monico Mariee [facility] TESTING) [facility] [place] CONSENT/REFUSAL FOR 2021-07-25 21:34:33 Doctor Unassigned, No [facility] DIAGNOSIS AND TREATMENT Name Medical Branch POCT GLUCOSE 2021-07-25 21:24:00 Monico Mariee [facility] (AUTOMATED) [facility] EKG-12 LEAD 2021-07-13 04:31:38 Malik Granados [facility] [place] CT ABDOMEN PELVIS W 2021-07-13 03:48:17 Malik Granados [facility] CONTRAST Medical Branch LIPASE 2021-07-13 01:45:00 Malik Granados [facility] [place] TROPONIN I 2021-07-13 01:45:00 Malik Granados [facility] COMP. METABOLIC PANEL 2021-07-13 01:45:00 Malik Granados [facility] ([id number]) Medical Branch CBC WITH DIFF 2021-07-13 01:45:00 Malik Granados [facility] COVID-19 (ID NOW RAPID 2021-07-13 01:45:00 Malik Granados [facility] TESTING) Medical Branch NOTICE OF PRIVACY 2021-07-13 01:37:21 Doctor Unassigned, No [facility] PRACTICES Name Medical Branch CONSENT/REFUSAL FOR 2021-07-13 01:36:54 [facility] Name Medical Branch POCT GLUCOSE 2021-02-26 21:34:00 [facility]ady [facility] (AUTOMATED) [facility] TRANSTHORACIC ECHO 2021-02-26 20:15:00 Cady [facility] (TTE) COMPLETE [facility] CT ABDOMEN PELVIS WO 2021-02-26 17:46:59 Lars Ann [facility] CONTRAST [facility] TROPONIN I 2021-02-26 17:20:00 Annie [facility] URINALYSIS 2021-02-26 17:17:00 Annie [facility] POCT GLUCOSE 2021-02-26 16:15:00 [facility] (AUTOMATED) [facility] POCT GLUCOSE 2021-02-26 12:49:00 C[facility] (AUTOMATED) Medical Branch XR LUMBAR SPINE 2 VW 2021-02-26 12:12:46 Annie [facility] [place] MAGNESIUM 2021-02-26 08:36:00 Cady [facility] TROPONIN I 2021-02-26 08:36:00 Annie [facility] THYROID STIMULATING 2021-02-26 08:36:[address] [facility] HORMONE Medical Branch CBC WITH DIFF 2021-02-26 08:36:00 Cady [facility] GLYCOSYLATED HEMOGLOBIN 2021-02-26 08:36:00 [facility] N-TERMINAL PRO-BNP 2021-02-26 08:36:00 [facility]OLIC PANEL 2021-02-26 08:20:00 [facility] (NA, K, CL, CO2, Medical Branch GLUCOSE, BUN, CREATININE, CA) POCT GLUCOSE 2021-02-26 08:03:[facility] [place] BASIC METABOLIC PANEL 2021-02-26 04:55:00 [facility] (NA, K, CL, CO2, Medical Branch GLUCOSE, BUN, CREATININE, CA) POCT GLUCOSE 2021-02-26 00:42:00 [facility] XR CHEST 1 VW 2021-02-25 19:25:17 Monico Mariee [facility] MAGNESIUM 2021-02-25 19:08:00 Monico Mariee [facility] TROPONIN I 2021-02-25 19:08:00 Monico Mariee [facility] COMP. METABOLIC PANEL 2021-02-25 19:08:00 Monico Mariee [facility] ([id number]) Medical Branch DIGOXIN 2021-02-25 19:08:00 Monico Mariee [facility] CBC WITH DIFF 2021-02-25 19:08:00 Monico Mariee [facility] PROTHROMBIN TIME / INR 2021-02-25 19:08:00 Monico Mariee [facility] ACTIVATED PARTIAL 2021-02-25 19:08:00 Monico Mariee [facility] THRMPLAS BITA [facility] N-TERMINAL PRO-BNP 2021-02-25 19:08:00 Monico Mariee [facility] COVID-19 (ID NOW RAPID 2021-02-25 19:08:00 Monico Mariee [facility] TESTING) [facility] [place] HB ECG ROUTINE & RHYTHM 2021-02-25 18:59:54 Monico Mariee [facility] STRIP [facility] XR CERVICAL SPINE 3 VW 2021-02-17 21:43:52 Fahad Griggs [facility] XR HIPS 3 VW RIGHT 2021-02-17 20:54:28 Fahad Griggs [facility] XR KNEE <3 VW RIGHT 2021-02-17 20:54:28 Fahad Griggs [facility] XR RIBS 3 VW RIGHT 2021-02-17 20:54:28 Fahad Griggs [facility] XR CHEST 1 VW 2021-02-17 19:35:15 Lyle Ying [facility] CT CERVICAL SPINE WO 2020-07-29 19:55:45 Fahad Griggs [facility] CONTRAST [facility] CT HEAD WO CONTRAST 2020-07-29 19:55:45 Fahad Griggs [facility] CONSENT/REFUSAL FOR 2020-07-29 19:15:11 Doctor Unassigned, No Un [facility] DIAGNOSIS AND TREATMENT Name Medical Branch POCT GLUCOSE 2020-06-29 22:13:00 Marlena Martin [facility] (AUTOMATED) [facility] POCT GLUCOSE 2020-06-29 17:32:00 Marlena Martin [facility] (AUTOMATED) [facility] POCT GLUCOSE 2020-06-29 10:56:00 Marlena Martin [facility] (AUTOMATED) [facility] PHOSPHORUS 2020-06-29 10:54:00 Mehul mateo [facility] URIC ACID 2020-06-29 10:54:00 Mehul mateo [facility] MAGNESIUM 2020-06-29 10:54:00 Mehul [facility] TROPONIN I 2020-06-29 10:54:00 [facility] COMP. METABOLIC PANEL 2020-06-29 10:54:00 Garett Armas [facility] ([id number]) [facility] CBC WITH DIFF 2020-06-29 10:54:00 [facility] N-[facility]MINAL PRO-BNP 2020-06-29 10:54:00 Garett Armas [facility] POCT GLUCOSE 2020-06-29 05:06:00 Marlena Martin [facility] (AUTOMATED) [facility] [place] LACTATE DEHYDROGENASE 2020-06-29 05:04:00 Garett Armas [facility] TROPONIN I 2020-06-29 05:04:00 [facility] POCT GLUCOSE 2020-06-29 01:58:00 Marlena Martin Elmer o [facility] (AUTOMATED) Medical Branch POCT GLUCOSE 2020-06-28 22:41:00 Marlena Martin [facility] (AUTOMATED) [facility] CYTO PLEURAL FLUID 2020-06-28 19:51:00 Garett Armas [facility] HB ECG ROUTINE & RHYTHM 2020-06-28 19:48:29 Roselyn Borjas [facility] TROPONIN I 2020-06-28 19:45:00 Roselyn Borjas [facility] IR THORACENTESIS WITH 2020-06-28 19:44:48 Mehul mateo [facility] IMAGING [facility] XR CHEST 1 VW 2020-06-28 19:44:32 Delfin Guadalupe [facility] AMYLASE BODY FLUID 2020-06-28 19:20:00 Garett Armas [facility] GLUCOSE BODY FLUID 2020-06-28 19:20:00 Garett Armas [facility] PH, BODY FLUID 2020-06-28 19:20:00 Mehul mateo [facility] T.PROTEIN BODY FLUID 2020-06-28 19:20:00 Garett Armas [facility] LDH TOTAL BODY FLUID 2020-06-28 19:20:00 Garett Armas [facility] BODY FLUID DIRECT COUNT 2020-06-28 19:20:00 Garett Armas [facility] BODY FLUID 2020-06-28 19:20:00 Garett Armas [facility] CULTURE(AEROBIC/ANAEROB [facility] [place] IC) POCT GLUCOSE 2020-06-28 18:06:00 Marlena Martin [facility] (AUTOMATED) [facility] POCT GLUCOSE 2020-06-28 14:07:00 Marlena Martin [facility] (AUTOMATED) [facility] PNEUMOCOCCAL ANTIGEN 2020-06-28 12:04:00 Garett Armas [facility] URINE CULTURE 2020-06-28 12:04:00 Mehul mateo [facility] UREA NITROGEN, URINE 2020-06-28 12:04:00 Mehul mateo [facility] RANDOM [facility] SODIUM, URINE RANDOM 2020-06-28 12:04:00 Mehul mateo [facility] ADC / LCC - DRUG SCREEN 2020-06-28 12:04:00 Garett Armas [facility] TRIAGE [facility] PROTEIN CREAT RATIO 2020-06-28 12:04:[address] [facility] URINE RANDOM Medical Branch PHOSPHORUS 2020-06-28 11:41:00 Mehul [facility] LACTATE DEHYDROGENASE 2020-06-28 11:41:00 Mheul [facility] URIC ACID 2020-06-28 11:41:00 Mehul mateo [facility] MAGNESIUM 2020-06-28 11:41:00 Mehul [facility] VITAMIN B12, LEVEL 2020-06-28 11:41:00 Mehul mateo [facility] FOLATE 2020-06-28 11:41:00 Mehul mateo [facility] TROPONIN I 2020-06-28 11:41:00 Mehul [facility] COMP. METABOLIC PANEL 2020-06-28 11:41:00 Mehul mateo [facility] ([id number]) [facility] IRON PANEL 2020-06-28 11:41:00 Mehul mateo [facility] SEDIMENTATION RATE 2020-06-28 11:41:00 Mehul mateo [facility] CBC WITH DIFF 2020-06-28 11:41:00 Mehul mateo [facility] PROTHROMBIN TIME / INR 2020-06-28 11:41:00 Garett Armas [facility] N-TERMINAL PRO-BNP 2020-06-28 11:41:00 Garett Armas [facility] VITAMIN D, 25-OH 2020-06-28 11:41:00 Mehul [facility] PROCALCITONIN 2020-06-28 11:41:00 Mehul [facility] BLOOD CULTURE SCREEN 2020-06-28 03:22:00 Marlena Martin [facility] BLOOD CULTURE SCREEN 2020-06-28 03:00:00 Marlena Martin [facility] CT CHEST PULMONARY 2020-06-28 01:21:00 Marlena Martin [facility] ANGIOGRAM Medical Branch XR CHEST 1 VW 2020-06-28 00:31:51 Yovani Bautista [facility] PHOSPHORUS 2020-06-28 00:14:00 Mehul [facility] URIC ACID 2020-06-28 00:14:00 Mehul [facility] LIPASE 2020-06-28 00:14:00 Singer [facility] MAGNESIUM 2020-06-28 00:14:00 Mehul [facility] FERRITIN SERUM 2020-06-28 00:14:00 Mehul [facility] TROPONIN I 2020-06-28 00:14:00 [facility] 2020-06-28 00:14:[address] [facility] HORMONE [facility] COMP. METABOLIC PANEL 2020-06-28 00:14:00 [facility]ani [facility]aut[facility] ([id number]) Medical Branch LIPID PANEL 2020-06-28 00:14:00 Mehul mateo [facility] ([id number])(TOTAL Medical Branch CHOLESTEROL, TRIGLYCERIDES, HDL) CBC WITH DIFF 2020-06-28 00:14:00 Yovani Bautista o f [facility] GLYCOSYLATED HEMOGLOBIN 2020-06-28 00:14:00 Garett Armas [facility] (A1C) [facility] PROTHROMBIN TIME / INR 2020-06-28 00:14:00 Yovani Bautista [facility] ACTIVATED PARTIAL 2020-06-28 00:14:[address] [facility] THRMPLAS BITA [facility] N-TERMINAL PRO-BNP 2020-06-28 00:14:00 Yovani Bautitsa [facility] COVID-19 (ID NOW RAPID 2020-06-28 00:14:00 Yovani Bautista [facility] TESTING) [facility] HB ECG ROUTINE & RHYTHM 2020-06-28 00:03:42 Singer [facility] STRIP [facility] CONSENT/REFUSAL FOR 2020-06-27 23:25:14 Doctor Unassigned, [facility] Name [facility] PHYSICIAN ORDERS 2019-09-01 05:01:00 Doctor Unassigned, No [facility] Encounters Start End Encounter Admission Attending Care Care Encounter Source Date/Time Date/Time Type Type Clinicians Facility Department ID 2022-02-12 2022-02-12 Transition BILLIE Vale [id number] Univers 00:00:00 00:00:00 of Care Sonja BONE [id number] [id number] [id number] [facility] 403 Branch 2022-02-10 2022-02-11 Outpatient X [facility] [id number] Univers 18:24:00 17:04:00 CHAITANYA ity of [facility] 2022-02-10 2022-02-11 Emergency Jamari Floyd [id number] Univers 18:24:00 17:04:00 Chaitanya Hatch [id number] ity [facility] [id number] Filipe as [id number] [facility] 100 Branch 2022-01-23 2022-01-23 [facility] [id number] Univers 05:05:00 06:51:00 MALIK amy [facility] 2022-01-23 2022-01-23 [facility] [id number] Univers 05:05:00 06:51:00 Malik MORALES [id number] ity of [facility] [id number] [facility] [id number] [address] 2022-01-06 2022-01-06 [facility] [id number] Univers 05:51:00 07:55:00 Yovani MORALES [id number] i ty of [facility] [id number] [facility] [id number] [address] 2022-01-06 2022-01-06 Emergency [facility] [id number] Univers 05:51:00 07:55:00 YOVANI [facility] [facility] 2021-12-17 2021-12-17 Emergency X AMISHA [facility] ERT [id number] Univers 17:58:00 21:25:00 CARIN [facility] 2021-12-17 2021-12-17 [facility] 1.2.840.114 [id number] Univers 17:58:00 21:25:00 Carin MORALES 350.1.13.10 i ty of ALEEGARCIA 4.2.7.2.686 [facility] [phone] [address] 2021-11-26 2021-11-26 Transition BILLIE Elizabeth 1.2.840.114 [id number] Univers 00:00:00 00:00:00 of Care Beba Selene BONE 350.1.13.10 i ty of [place] 4.2.7.2.686 [facility] [phone] [facility] [address] 2021-11-18 2021-11-22 Inpatient Kar OWEN [facility] FRANCISCO [id number] Univers 05:21:00 12:20:00 JESSICA doe [facility] 2021-11-18 2021-11-22 [facility] Yovani Bautista [facility] 1.2.840.1 [id number] Univers 05:21:00 12:20:00 Encounter Garett Armas 350.1.13.10 ity of Jessica Owen 4.2.7.2.686 [facility] [phone] [address] 2021-09-11 2021-09-11 Emergency X [facility] ERT [id number] Univers 05:09:00 08:26:00 [facility] 2021-09-11 2021-09-11 Emergency [facility] [id number] Univers 05:09:00 08:26:00 Malik MORALES 350.1.13.10 ity [facility] 4.2.7.2.686 [facility] [phone] [address] 2021-07-25 2021-07-[address] [facility] ERT [id number] Univers 15:23:00 17:37:00 MONICO itamy [facility] 2021-07-25 2021-07-25 Emergency [facility] [id number] Univers 15:23:00 17:37:00 Monico MORALES 350.1.13.10 i ty alfonzo JAMES 4.2.7.2.[address] [place] [phone] 2021-07-12 2021-07-12 Emergency X [facility] ERT [id number] Univers 19:24:00 22:58:00 C[facility]ELKIS [facility] 2021-07-12 2021-07-12 Emergency [facility] [id number] Univers 19:24:00 22:58:00 Ceciliastormy Katy ANDREW 350.1.13.10 ity [facility] 4.2.7.2.[address] [place] [phone] 2021-02-27 2021-02-27 Billie Burgos 1.2.840.114 [id number] Univers 00:00:00 00:00:00 of Care Sonja Bone 350.1.13.10 it [place] [phone] [facility] [address] 2021-02-25 2021-02-26 Emergency Monico Mariee R [facility] 1.2.840. 114 [id number] Univers 13:55:00 20:18:00 Morgan Lazar 350.1.13.10 ity of [place] 4.2.7.2.686 [facility] [phone] [place] [address] Branch 2021-02-25 2021-02-25 Emergency X MCCLEARY, [facility] ERT [id number] Univers 13:55:00 13:55:00 MONICO ity [facility] 2021-02-17 2021-02-17 Emergency [facility] 1.2.840.114 [id number] Univers 14:26:00 18:33:00 Fahad [place] 350.1.13.10 i ty of [place] 4.2.7.2.686 [facility] [phone] [place] [address] Branch 2021-02-17 2021-02-17 Emergency X [facility] ERT [id number] Univers 14:26:00 14:26:00 ity [facility] 2020-07-29 2020-07-29 Emergency [facility] 1.2.840.114 [id number] Univers 13:39:00 16:33:00 Fahad [place] 350.1.13.10 i ty of [place] 4.2.7.2.686 [facility] [phone] [place] [address] Branch 2020-07-29 2020-07-29 Emergency X GRIGGS, [facility] ERT [id number] Univers 13:39:00 13:39:00 FAHAD doe [facility] 2020-07-04 2020-07-04 Transition Billie Latif 1.2.840.114 [id number] Univers 00:00:00 00:00:00 of Care Bonny Bone 350.1.13.10 [id number] [place] [address] [place] 2020-06-27 2020-06-29 Hospital Marlena Martin R [facility] 1.2.840.11 [id number] Univers 17:58:00 19:18:00 Encounter Garett Armas Andrew 350.1.13.10 ity [place] [phone] [facility] [address] [place] 2020-06-27 2020-06-29 Inpatient X MEHUL, [facility] [id number] Univers 17:58:00 19:18:00 GARETT itamy [facility] 2020-06-27 2020-06-27 Orders Doctor KIAH 1.2.840.114 [id number] Univers 00:00:00 00:00:00 Only Unassigned, YEHUDA 350.1.13.10 ity of [facility] 4.2.7.2.686 Filipe as [phone] [address] 2019-09-01 2019-09-01 [facility] 1.2.840.114 [id number] Univers 09:55:41 10:13:47 Visit Donna Morales 350.1.13.10 ity of [place] 4.2.7.2.[address] [facility] s [facility] [phone] Oh dical [address] 2019-09-01 2019-09-01 [facility] [id number] Univers 10:00:00 10:00:00 DONNA doe [facility] 2019-09-01 2019-09-01 Orders Doctor KIAH 1.2.840.114 [id number] Univers 00:00:00 00:00:00 Only Unassigned, YEHUDA 350.1.13.10 ity of [facility] 4.2.7.2.686 [place] [phone] [address] Results Test Description Test Time Test Comments Results Result Comments Source DIGOXIN 2022-02-11 21:08:20 Test Item Value Reference Range Interpretation Comme nts DIGOXIN (test code = 1047986980) 0.9 ng/mL 0.8-1.6 LUZ (test code = LUZ) Arrythmias: ?1.5 - 2.0 ng/mLToxic Range: ? Greater than or equal to 2.4 ng/mL Lab Interpretation (test code = 13015-9) [facility] 20:53:15 Test Item Value Reference Range Interpretation Comments DIGOXIN (test code = 0.9 ng/mL 0.8-1.6 2867434506) LUZ (test code = LUZ) Arrythmias: ?1.5 - 2.0 ng/mLToxic Range: ? Greater than or equal to 2.4 ng/mL Lab Interpretation (test Normal code = 83358-1) [facility]IN2022-09-20 18:19:07 Test Item Value Reference Interpretation Comments Range Procalcitonin (test 0.03 ng/mL See_Comment [Automa beatrice code = 2763065533) message] The system which generated this result transmitted reference range: <=0.07. The reference range was not used to interpret this result as normal/abnormal . LUZ (test code = INTERPRETATION OF LUZ) PROCALCITONIN RESULTS IN ADULTS >= 18 YEARS OF AGE Initiation and discontinuation of antibiotics on patients with suspected or confirmed Lower Respiratory Tract Infection in Adults >= 18 years of age. + +------ + ----+ +|Procalcit onin |Interpretation ?|Antibiotic ? ? |Considerations ? |ng/mL ? | ?|recommendation | ? + +------ + ----+ +| <0.1 ? | Bacterial ? ? ?| Strongly ? ? ?| ? | ?| infection very | discouraged ? | Overruling: ? | ?| unlikely ? ? ? | ? | ? Clinically unstable ? ? ? + +------ + ----+ ? High risk for adverse ? ? | <0.25 ?| Bacterial ? ? ?| Discouraged ? | ? outcome ? | ?| infection ? ? ?| ? | ? SEE IMPORTANT NOTE ?| ?| unlikely ? ? ? | ? | ? + +------ + ----+ +| >=0.25 ? ? ? | Bacterial ? ? ?| Encouraged ? ?| ? | ?| infection ? ? ?| ? | ? | ?| likely ? | ? | Consider treatment failure ?+ +----- + -----+ if levels does not decrease | >0.5 ? | Bacterial ? ? ?| Strongly ? ? ?| appropriately ? | ?| infection very | encouraged ? ?| ? | ?| likely ? | ? | ? + +------ + ----+ + Discontinuation of antibiotics in high-acuity patients with suspected or confirmed sepsis in Adults >= 18 years of age. + +------ + ----+ +|Procalcit onin |Interpretation ?|Antibiotic ? ? |Considerations ? |ng/mL ? | ?|recommendation | ? + +------ + ----+ +| <0.25 ?| Bacterial ? ? ?| Strongly ? ? ?| ? | ?| infection very | discouraged ? | Overruling: ? | ?| unlikely ? ? ? | ? | ? Clinically unstable ? ? ? + +------ + ----+ ? High risk for adverse ? ? | <0.5 or drop | Bacterial ? ? ?| Discouraged ? | ? outcome ? | >80% from ? ?| infection ? ? ?| ? | ? SEE IMPORTANT NOTE ?| highest PCT ?| unlikely ? ? ? | ? | ? | level ?| ?| ? | ? + +------ + ----+ +| >=0.5 ?| Bacterial ? ? ?| Encouraged ? ?| ? | ?| infection ? ? ?| ? | ? | ?| likely ? | ? | Consider treatment failure ?+ +----- + -----+ if levels does not decrease | >1.0 ? | Bacterial ? ? ?| Strongly ? ? ?| appropriately ? | ?| infection very | encouraged ? ?| ? | ?| likely ? | ? | ? + +------ + ----+ + Percentage of drop of Procalcitonin calculation for Discontinuation of antibiotics in high-acuity patients with suspected or confirmed sepsis in Adults >= 18 years of age. ? Procalcitonin highest{}-Procalcitoni n current{}Delta Procalcitonin = ___ x100% ? Procalcitonin current {} IMPORTANT NOTE: Procalcitonin may be elevated without bacterial infection by physiologic stress related to trauma, martinez, chronic dialysis, metastatic cancer, surgery in the past seven days, malaria, some fungal infections, and some forms of vasculitis. The interpretation algorithm may not apply to patients with immunosuppression (equivalent of >10 mg of prednisone daily), HIV with CD4 cell count < 350 cells/mm3, active malignancy on systemic chemotherapy, solid organ transplant or hematopoietic stem cell transplantation, or hospital acquired pneumonia. Additionally, some clinical trials of procalcitonin have excluded patients with shock requiring vasopressor use, acute respiratory failure requiring mechanical ventilation, or those with known lung abscess/empyema. For further information please refer to:[email or web address] Lab Interpretation Normal (test code = 06874-0) [facility]2022-02-11 16:43:47 Test Item Value Reference Range Interpretation Comments POCT GLU (test code = 8861975767) 302 mg/dL 70-110 H Lab Interpretation (test code = Abnormal 63698-4) [facility] TylerTROPONIN [id number] 13:58:53 Test Item Value Reference Interpretation Comments Range TROPONIN I (test 0.019 ng/mL See_Comment [Automated code = 4570848992) message] The system which generated this result transmitted reference range : <=0.034. The reference range was not used to interpret this result as normal/abnormal . LUZ (test code = Reference (Normal) LUZ) Range (defined by the 99th percentile reference limit): <= 0.034 ng/mL Note: Cardiac troponin begins to rise 3-4 hours after the onset of ischemia. Repeat in 4-6 hours if the sample was drawn within 3-4 hours of the onset of the symptom and found normal. Diagnosis of myocardial injury is made with acute changes in cTn concentrations with at least one serial sample above the 99th percentile upper reference limit (URL), taken together with the patient's clinical presentation. Biotin has been reported to cause a negative bias, interpret results relative to patient's use of biotin. Lab Interpretation Normal (test code = 89735-1) [facility]2022-02-11 13:18:28 Test Item Value Reference Range Interpretation Comments POCT GLU (test code = 7413744861) 123 mg/dL 70-110 H Lab Interpretation (test code = Abnormal 52027-6) [facility] TylerMAGNESIUM2022-09-20 12:47:51 Test Item Value Reference Range Interpretation Comments MAGNESIUM (test code = 8009844089) 2.5 mg/dL 1.7-2.4 H Lab Interpretation (test code = Abnormal 95685-5) [facility] TylerBAC METABOLIC PANEL (NA, K, CL, CO2, GLUCOSE, BUN, CREATININE, CA)2022-02-11 12:47:51 Test Item Value Reference Range Interpretation Comments NA (test code = 136 mmol/L 135-145 9502389733) K (test code = 4.2 mmol/L 3.5-5 6811140322) CL (test code = 101 mmol/L 98-108 2247270737) CO2 TOTAL (test code = 27 mmol/L 23-31 3274974382) AGAP (test code = 2-16 0227889247) BUN (test code = 48 mg/dL 7-23 H 2592637961) GLUCOSE (test code = 119 mg/dL 70-110 H 4787985206) CREATININE (test code = 1.58 mg/dL 0.6-1.25 H 3546958324) CALCIUM (test code = 8.8 mg/dL 8.6-10.6 5593981871) eGFR (test code = mL/min/1.73m2 6905786641) LUZ (test code = LUZ) Association of Glomerular Filtration Rate (GFR) and Staging of Kidney Disease* + --+ --+ ------+| GFR (mL/min/1.73 m2) ?| With Kidney Damage ?| ?Without Kidney Damage+ --------+ --------+ +| ?>90 ?| ?Stage one ?| ? Normal ?+ ---+ ---+ -------+| ?60-89 ?| ?Stage two ?| ? Decreased GFR ? + --+ --+ ------+| ?30-59 ?| ?Stage three ?| ? Stage three ? + --+ --+ ------+| ?15-29 ?| ?Stage four ? | ? Stage four ?+ ---+ ---+ -------+| ?<15 (or dialysis) ? ?| ?Stage five ? | ? Stage five ?+ ---+ ---+ -------+ *Each stage assumes the associated GFR level has been in effect for at least three months. ?Stages 1 to 5, with or without kidney disease, indicate chronic kidney disease. Notes: Determination of stages one and two (with eGFR >59mL/min/1.73 m2) requires estimation of kidney damage for at least three months as defined by structural or functional abnormalities of the kidney, manifested by either:Pathological abnormalities or Markers of kidney damage (including abnormalities in the composition of the blood or urine or abnormalities in imaging tests). Lab Interpretation Abnormal (test code = 43351-8) [facility] WITH [id number] 01:04:16 Test Item Value Reference Range Interpretation Comments WBC (test code = See_Comment H [Automated 4394-2) message] The sy stem which generated this result transmitted reference range : 4.20 - 10.70 10*3/?L. The reference range was not used to interpret this result as normal/abnormal . RBC (test code = See_Comment L [Automated 139-8) message] The sy stem which generated this result transmitted reference range : 4.26 - 5.52 10*6/?L. The reference range was not used to interpret this result as normal/abnormal . HGB (test code = 8.4 g/dL 12.2-16.4 L 718-7) HCT (test code = 28.3 % 38.4-49.3 L 4544-3) MCV (test code = 84.7 fL 81.7-95.6 787-2) MCH (test code = 25.1 pg 26.1-32.7 L 785-6) MCHC (test code = 29.7 g/dL 31.2-35 L 786-4) RDW-SD (test code = 53.3 fL 38.5-51.6 H 36782-1) RDW-CV (test code = 17.2 % 12.1-15.4 H 788-0) PLT (test code = See_Comment H [Automated 777-3) message] The sy stem which generated this result transmitted reference range : 150 - 328 10*3/ ?L. The reference r stephanie was not used to interpret this result as normal/abnormal . MPV (test code = 11.0 fL 9.8-13 13280-4) NRBC/100 WBC (test See_Comment [Automat ed code = 8174559186) message] The system which generated this result transmitted reference range : 0.0 - 10.0 /100 WBCs. The refer ence range was not u sed to interpret th is result as normal/abnormal . NRBC x10^3 (test code See_Comment [Auto mated = 1868465298) message] The s ystem which generated this result transmitted reference range : 10*3/?L. The reference range was not used to interpret this result as normal/abnormal . SEG % (test code = 50 % 33-76 35471-8) BAND % (test code = 1 % 0-1 86346-6) LYMPH % (test code = 17 % 14-54 36028-7) MONO % (test code = 8 % 0-4 H 69243-8) EOS % (test code = 23 % 0-3 H 37142-8) BASO % (test code = 1 % 0-1 02374-6) ANC (test code = 5.62 10*3/uL 1.99-6.95 753-4) Lab Interpretation Abnormal (test code = 64348-0) [facility] TylerMILES [id number] 00:47:16 Test Item Value Reference Interpretation Comments Range TROPONIN I (test 0.022 ng/mL See_Comment [Automated code = 3952809409) message] The system which generated this result transmitted reference range : <=0.034. The reference range was not used to interpret this result as normal/abnormal . LUZ (test code = Reference (Normal) LUZ) Range (defined by the 99th percentile reference limit): <= 0.034 ng/mL Note: Cardiac troponin begins to rise 3-4 hours after the onset of ischemia. Repeat in 4-6 hours if the sample was drawn within 3-4 hours of the onset of the symptom and found normal. Diagnosis of myocardial injury is made with acute changes in cTn concentrations with at least one serial sample above the 99th percentile upper reference limit (URL), taken together with the patient's clinical presentation. Biotin has been reported to cause a negative bias, interpret results relative to patient's use of biotin. Lab Interpretation Normal (test code = 81533-5) [facility] Tyler[facility]-TERMINAL [id number] 00:43:59 Test Item Value Reference Range Interpretation Comments NT-proBNP (test code 2520 pg/mL See_Comment H [Autom ated = 3546962130) message] The system which generated this result transmitted reference range : <=450. The reference range was not used to interpret this result as normal/abnormal . LUZ (test code = LUZ) Biotin has been reported to cause a negative bias, interpret results relative to patient's use of biotin. Lab Interpretation Abnormal (test code = 76321-8) [facility] TylerCOMP. METABOLIC PANEL (12940)2022-02-11 00:36:13 Test Item Value Reference Range Interpretation Comments NA (test code = 139 mmol/L 135-145 7419656330) K (test code = 5.0 mmol/L 3.5-5 2352413195) CL (test code = 96 mmol/L 98-108 L 2175747765) CO2 TOTAL (test code = 30 mmol/L 23-31 3864484888) AGAP (test code = 2-16 2488877044) BUN (test code = 50 mg/dL 7-23 H 1563294404) GLUCOSE (test code = 147 mg/dL 70-110 H 7248209764) CREATININE (test code = 1.71 mg/dL 0.6-1.25 H 2124317915) TOTAL BILI (test code = 0.7 mg/dL 0.1-1.4 5279199877) CALCIUM (test code = 9.3 mg/dL 8.6-10.6 4103170804) T PROTEIN (test code = 7.2 g/dL 6.3-8.2 8668037793) ALBUMIN (test code = 4.4 g/dL 3.5-5 6367348735) ALK PHOS (test code = 99 U/L 34-122 4260639592) ALTv (test code = 14 U/L 5-50 1742-6) AST(SGOT) (test code = 14 U/L 13-40 2303911512) eGFR (test code = mL/min/1.73m2 5714988568) LUZ (test code = LUZ) Association of Glomerular Filtration Rate (GFR) and Staging of Kidney Disease* + --+ --+ ------+| GFR (mL/min/1.73 m2) ?| With Kidney Damage ?| ?Without Kidney Damage+ --------+ --------+ +| ?>90 ?| ?Stage one ?| ? Normal ?+ ---+ ---+ -------+| ?60-89 ?| ?Stage two ?| ? Decreased GFR ? + --+ --+ ------+| ?30-59 ?| ?Stage three ?| ? Stage three ? + --+ --+ ------+| ?15-29 ?| ?Stage four ? | ? Stage four ?+ ---+ ---+ -------+| ?<15 (or dialysis) ? ?| ?Stage five ? | ? Stage five ?+ ---+ ---+ -------+ *Each stage assumes the associated GFR level has been in effect for at least three months. ?Stages 1 to 5, with or without kidney disease, indicate chronic kidney disease. Notes: Determination of stages one and two (with eGFR >59mL/min/1.73 m2) requires estimation of kidney damage for at least three months as defined by structural or functional abnormalities of the kidney, manifested by either:Pathological abnormalities or Markers of kidney damage (including abnormalities in the composition of the blood or urine or abnormalities in imaging tests). Lab Interpretation Abnormal (test code = 61037-6) [facility] Tyler[facility]th[facility] / [id number] 11:05:09 Test Item Value Reference Range Interpretation Comments PROTIME PATIENT (test See_Comment H [Auto mated message] code = 5964-2) The system wh ich generated this result transmitted ref erence range: 12.0 - 1 4.7 Seconds. The reference range was not used to int erpret this result as normal/abnormal . INR (test code = 6301-6) Nor mal INR <1.1; Warfarin Therap eutic range 2.0 to 3. 0 or 2.5 to 3.5, dep ending upon the indica tions. Lab Interpretation (test Abnormal code = 82946-6) [facility]TR[facility] [id number] 10:48:07 Test Item Value Reference Interpretation Comments Range TROPONIN I (test 0.027 ng/mL See_Comment [Automated code = 4706762524) message] The system which generated this result transmitted reference range : <=0.034. The reference range was not used to interpret this result as normal/abnormal . LUZ (test code = Reference (Normal) LUZ) Range (defined by the 99th percentile reference limit): <= 0.034 ng/mL Note: Cardiac troponin begins to rise 3-4 hours after the onset of ischemia. Repeat in 4-6 hours if the sample was drawn within 3-4 hours of the onset of the symptom and found normal. Diagnosis of myocardial injury is made with acute changes in cTn concentrations with at least one serial sample above the 99th percentile upper reference limit (URL), taken together with the patient's clinical presentation. Biotin has been reported to cause a negative bias, interpret results relative to patient's use of biotin. Lab Interpretation Normal (test code = 26914-7) [facility] [id number] 10:44:31 Test Item Value Reference Range Interpretation Comments NT-proBNP (test code 2230 pg/mL See_Comment H [Autom ated = 8410478828) message] The system which generated this result transmitted reference range : <=450. The reference range was not used to interpret this result as normal/abnormal . LUZ (test code = LUZ) Biotin has been reported to cause a negative bias, interpret results relative to patient's use of biotin. Lab Interpretation Abnormal (test code = 20805-8) [facility]87[facility] 10:36:26 Test Item Value Reference Range Interpretation Comments NA (test code = 140 mmol/L 135-145 6724820319) K (test code = 4.6 mmol/L 3.5-5 7646163227) CL (test code = 104 mmol/L 98-108 8563631916) CO2 TOTAL (test code = 28 mmol/L 23-31 6810118578) AGAP (test code = 2-16 4610590593) BUN (test code = 42 mg/dL 7-23 H 3217735809) GLUCOSE (test code = 138 mg/dL 70-110 H 0832313859) CREATININE (test code = 1.21 mg/dL 0.6-1.25 9652138673) TOTAL BILI (test code = 0.6 mg/dL 0.1-1.6 6885596105) CALCIUM (test code = 9.1 mg/dL 8.6-10.6 8234733330) T PROTEIN (test code = 6.4 g/dL 6.3-8.2 8869907372) ALBUMIN (test code = 3.9 g/dL 3.5-5 2997948491) ALK PHOS (test code = 101 U/L 34-122 3590019832) ALTv (test code = 14 U/L 5-50 1742-6) AST(SGOT) (test code = 18 U/L 13-40 1282142346) eGFR (test code = mL/min/1.73m2 0581295696) LUZ (test code = LUZ) Association of Glomerular Filtration Rate (GFR) and Staging of Kidney Disease* + --+ --+ ------+| GFR (mL/min/1.73 m2) ?| With Kidney Damage ?| ?Without Kidney Damage+ --------+ --------+ +| ?>90 ?| ?Stage one ?| ? Normal ?+ ---+ ---+ -------+| ?60-89 ?| ?Stage two ?| ? Decreased GFR ? + --+ --+ ------+| ?30-59 ?| ?Stage three ?| ? Stage three ? + --+ --+ ------+| ?15-29 ?| ?Stage four ? | ? Stage four ?+ ---+ ---+ -------+| ?<15 (or dialysis) ? ?| ?Stage five ? | ? Stage five ?+ ---+ ---+ -------+ *Each stage assumes the associated GFR level has been in effect for at least three months. ?Stages 1 to 5, with or without kidney disease, indicate chronic kidney disease. Notes: Determination of stages one and two (with eGFR >59mL/min/1.73 m2) requires estimation of kidney damage for at least three months as defined by structural or functional abnormalities of the kidney, manifested by either:Pathological abnormalities or Markers of kidney damage (including abnormalities in the composition of the blood or urine or abnormalities in imaging tests). Lab Interpretation Abnormal (test code = 04775-5) [facility] WITH [id number] 10:23:05 Test Item Value Reference Range Interpretation Comments WBC (test code = See_Comment [Automated 7788-2) message] The sy stem which generated this result transmitted reference range : 4.20 - 10.70 10*3/?L. The reference range was not used to interpret this result as normal/abnormal . RBC (test code = See_Comment L [Automated 789-8) message] The sy stem which generated this result transmitted reference range : 4.26 - 5.52 10*6/?L. The reference range was not used to interpret this result as normal/abnormal . HGB (test code = 8.3 g/dL 12.2-16.4 L 718-7) HCT (test code = 27.7 % 38.4-49.3 L 4544-3) MCV (test code = 86.3 fL 81.7-95.6 787-2) MCH (test code = 25.9 pg 26.1-32.7 L 785-6) MCHC (test code = 30.0 g/dL 31.2-35 L 786-4) RDW-SD (test code = 55.8 fL 38.5-51.6 H 24925-4) RDW-CV (test code = 17.8 % 12.1-15.4 H 788-0) PLT (test code = See_Comment [Automated 777-3) message] The sy stem which generated this result transmitted reference range : 150 - 328 10*3/ ?L. The reference r stephanie was not used to interpret this result as normal/abnormal . MPV (test code = 10.8 fL 9.8-13 74420-0) NRBC/100 WBC (test See_Comment [Automat ed code = 8115411626) message] The system which generated this result transmitted reference range : 0.0 - 10.0 /100 WBCs. The refer ence range was not u sed to interpret th is result as normal/abnormal . NRBC x10^3 (test code See_Comment [Auto mated = 4241099253) message] The s ystem which generated this result transmitted reference range : 10*3/?L. The reference range was not used to interpret this result as normal/abnormal . GRAN MAT (NEUT) % 39.5 % (test code = 770-8) IMM GRAN % (test code 0.30 % = 9707148162) LYMPH % (test code = 19.4 % 736-9) MONO % (test code = 11.3 % 5905-5) EOS % (test code = 28.8 % 713-8) BASO % (test code = 0.7 % 706-2) GRAN MAT x10^3(ANC) 2.68 10*3/uL 1.99-6.95 (test code = 6344325685) IMM GRAN x10^3 (test 0-0.06 code = 0563893103) LYMPH x10^3 (test code 1.32 10*3/uL 1.09-3.23 = 731-0) MONO x10^3 (test code 0.77 10*3/uL 0.36-1.02 = 742-7) EOS x10^3 (test code = 1.96 10*3/uL 0.06-0.53 H 711-2) BASO x10^3 (test code 0.05 10*3/uL 0.01-0.09 = 704-7) Lab Interpretation Abnormal (test code = 89509-2) [facility] [id number] 12:10:51 Test Item Value Reference Interpretation Comments Range TROPONIN I (test 0.019 ng/mL See_Comment [Automated code = 1404591199) message] The system which generated this result transmitted reference range : <=0.034. The reference range was not used to interpret this result as normal/abnormal . LUZ (test code = Reference (Normal) LUZ) Range (defined by the 99th percentile reference limit): <= 0.034 ng/mL Note: Cardiac troponin begins to rise 3-4 hours after the onset of ischemia. Repeat in 4-6 hours if the sample was drawn within 3-4 hours of the onset of the symptom and found normal. Diagnosis of myocardial injury is made with acute changes in cTn concentrations with at least one serial sample above the 99th percentile upper reference limit (URL), taken together with the patient's clinical presentation. Biotin has been reported to cause a negative bias, interpret results relative to patient's use of biotin. Lab Interpretation Normal (test code = 19272-4) [facility] [id number] 12:07:30 Test Item Value Reference Range Interpretation Comments NT-proBNP (test code 2730 pg/mL See_Comment H [Autom ated = 9940238393) message] The system which generated this result transmitted reference range : <=450. The reference range was not used to interpret this result as normal/abnormal . LUZ (test code = ULZ) Biotin has been reported to cause a negative bias, interpret results relative to patient's use of biotin. Lab Interpretation Abnormal (test code = 15614-8) [facility]2022-[facility]-15 12:00:10 Test Item Value Reference Range Interpretation Comments MAGNESIUM (test code = 9351030917) 1.9 mg/dL 1.7-2.4 Lab Interpretation (test code = Normal 48621-9) [facility] METABOLIC PANEL ([id number])2022-01-06 11:59:50 Test Item Value Reference Range Interpretation Comments NA (test code = 140 mmol/L 135-145 0519343910) K (test code = 4.9 mmol/L 3.5-5 3522819701) CL (test code = 105 mmol/L 98-108 5104362808) CO2 TOTAL (test code = 22 mmol/L 23-31 L 4752546261) AGAP (test code = 2-16 4788142772) BUN (test code = 29 mg/dL 7-23 H 8316804907) GLUCOSE (test code = 155 mg/dL 70-110 H 4747347190) CREATININE (test code = 1.20 mg/dL 0.6-1.25 0123480766) TOTAL BILI (test code = 0.9 mg/dL 0.1-1.0 0250751511) CALCIUM (test code = 9.1 mg/dL 8.6-10.6 4770612622) T PROTEIN (test code = 7.1 g/dL 6.3-8.2 7185477630) ALBUMIN (test code = 4.2 g/dL 3.5-5 1127297792) ALK PHOS (test code = 85 U/L 34-122 0653945745) ALTv (test code = 12 U/L 5-50 2-6) AST(SGOT) (test code = 14 U/L 13-40 7635054592) eGFR (test code = mL/min/1.73m2 6850098418) LUZ (test code = LUZ) Association of Glomerular Filtration Rate (GFR) and Staging of Kidney Disease* + --+ --+ ------+| GFR (mL/min/1.73 m2) ?| With Kidney Damage ?| ?Without Kidney Damage+ --------+ --------+ +| ?>90 ?| ?Stage one ?| ? Normal ?+ ---+ ---+ -------+| ?60-89 ?| ?Stage two ?| ? Decreased GFR ? + --+ --+ ------+| ?30-59 ?| ?Stage three ?| ? Stage three ? + --+ --+ ------+| ?15-29 ?| ?Stage four ? | ? Stage four ?+ ---+ ---+ -------+| ?<15 (or dialysis) ? ?| ?Stage five ? | ? Stage five ?+ ---+ ---+ -------+ *Each stage assumes the associated GFR level has been in effect for at least three months. ?Stages 1 to 5, with or without kidney disease, indicate chronic kidney disease. Notes: Determination of stages one and two (with eGFR >59mL/min/1.73 m2) requires estimation of kidney damage for at least three months as defined by structural or functional abnormalities of the kidney, manifested by either:Pathological abnormalities or Markers of kidney damage (including abnormalities in the composition of the blood or urine or abnormalities in imaging tests). Lab Interpretation Abnormal (test code = 35915-4) [facility] WITH [id number] 11:34:48 Test Item Value Reference Range Interpretation Comments WBC (test code = See_Comment [Automated 6690-2) message] The sy stem which generated this result transmitted reference range : 4.20 - 10.70 10*3/?L. The reference range was not used to interpret this result as normal/abnormal . RBC (test code = See_Comment L [Automated 789-8) message] The sy stem which generated this result transmitted reference range : 4.26 - 5.52 10*6/?L. The reference range was not used to interpret this result as normal/abnormal . HGB (test code = 9.0 g/dL 12.2-16.4 L 718-7) HCT (test code = 29.1 % 38.4-49.3 L 4544-3) MCV (test code = 86.6 fL 81.7-95.6 787-2) MCH (test code = 26.8 pg 26.1-32.7 785-6) MCHC (test code = 30.9 g/dL 31.2-35 L 786-4) RDW-SD (test code = 56.3 fL 38.5-51.6 H 66696-6) RDW-CV (test code = 17.7 % 12.1-15.4 H 788-0) PLT (test code = See_Comment [Automated 777-3) message] The sy stem which generated this result transmitted reference range : 150 - 328 10*3/ ?L. The reference r stephanie was not used to interpret this result as normal/abnormal . MPV (test code = 10.8 fL 9.8-13 58026-8) NRBC/100 WBC (test See_Comment [Automat ed code = 3283842670) message] The system which generated this result transmitted reference range : 0.0 - 10.0 /100 WBCs. The refer ence range was not u sed to interpret th is result as normal/abnormal . NRBC x10^3 (test code See_Comment [Auto mated = 8579806073) message] The s [employer] which generated this result transmitted reference range : 10*3/?L. The reference range was not used to interpret this result as normal/abnormal . GRAN MAT (NEUT) % 72.3 % (test code = 770-8) IMM GRAN % (test code 1.10 % = 8343327700) LYMPH % (test code = 10.1 % 736-9) MONO % (test code = 10.9 % 5905-5) EOS % (test code = 4.8 % 713-8) BASO % (test code = 0.8 % 706-2) GRAN MAT x10^3(ANC) 7.47 10*3/uL 1.99-6.95 H (test code = 0254348934) IMM GRAN x10^3 (test 0.11 10*3/uL 0-0.06 H code = 4453958407) LYMPH x10^3 (test code 1.04 10*3/uL 1.09-3.23 L = 731-0) MONO x10^3 (test code 1.13 10*3/uL 0.36-1.02 H = 742-7) EOS x10^3 (test code = 0.50 10*3/uL 0.06-0.53 711-2) BASO x10^3 (test code 0.08 10*3/uL 0.01-0.09 = 704-7) Lab Interpretation Abnormal (test code = 78762-3) [facility] [id number] 00:39:30 Test Item Value Reference Interpretation Comments Range TROPONIN I (test 0.010 ng/mL See_Comment [Automated code = 5049557921) message] The system which generated this result transmitted reference range : <=0.034. The reference range was not used to interpret this result as normal/abnormal . LUZ (test code = Reference (Normal) LUZ) Range (defined by the 99th percentile reference limit): <= 0.034 ng/mL Note: Cardiac troponin begins to rise 3-4 hours after the onset of ischemia. Repeat in 4-6 hours if the sample was drawn within 3-4 hours of the onset of the symptom and found normal. Diagnosis of myocardial injury is made with acute changes in cTn concentrations with at least one serial sample above the 99th percentile upper reference limit (URL), taken together with the patient's clinical presentation. Biotin has been reported to cause a negative bias, interpret results relative to patient's use of biotin. Lab Interpretation Normal (test code = 67215-7) [id number] 00:36:12 Test Item Value Reference Range Interpretation Comments NT-proBNP (test code 1390 pg/mL See_Comment H [Autom ated = 3130004199) message] The system which generated this result transmitted reference range : <=450. The reference range was not used to interpret this result as normal/abnormal . LUZ (test code = LUZ) Biotin has been reported to cause a negative bias, interpret results relative to patient's use of biotin. Lab Interpretation Abnormal (test code = 00309-2) [facility]. METABOLIC PANEL ([id number])2021-12-18 00:28:47 Test Item Value Reference Range Interpretation Comments NA (test code = 140 mmol/L 135-145 4465620152) K (test code = 4.9 mmol/L 3.5-5 8361259137) CL (test code = 101 mmol/L 98-108 8096956193) CO2 TOTAL (test code = 23 mmol/L 23-31 6159554192) AGAP (test code = 2-16 5449966314) BUN (test code = 27 mg/dL 7-23 H 8155778741) GLUCOSE (test code = 114 mg/dL 70-110 H 0959099961) CREATININE (test code = 1.20 mg/dL 0.6-1.25 5420089817) TOTAL BILI (test code = 0.6 mg/dL 0.1-1.3 6106816039) CALCIUM (test code = 9.3 mg/dL 8.6-10.6 6197661317) T PROTEIN (test code = 7.2 g/dL 6.3-8.2 0482051627) ALBUMIN (test code = 4.3 g/dL 3.5-5 6483461318) ALK PHOS (test code = 85 U/L 34-122 1902632225) ALTv (test code = 14 U/L 5-50 1742-6) AST(SGOT) (test code = 15 U/L 13-40 3759942612) eGFR (test code = mL/min/1.73m2 4520207032) LUZ (test code = LUZ) Association of Glomerular Filtration Rate (GFR) and Staging of Kidney Disease* + --+ --+ ------+| GFR (mL/min/1.73 m2) ?| With Kidney Damage ?| ?Without Kidney Damage+ --------+ --------+ +| ?>90 ?| ?Stage one ?| ? Normal ?+ ---+ ---+ -------+| ?60-89 ?| ?Stage two ?| ? Decreased GFR ? + --+ --+ ------+| ?30-59 ?| ?Stage three ?| ? Stage three ? + --+ --+ ------+| ?15-29 ?| ?Stage four ? | ? Stage four ?+ ---+ ---+ -------+| ?<15 (or dialysis) ? ?| ?Stage five ? | ? Stage five ?+ ---+ ---+ -------+ *Each stage assumes the associated GFR level has been in effect for at least three months. ?Stages 1 to 5, with or without kidney disease, indicate chronic kidney disease. Notes: Determination of stages one and two (with eGFR >59mL/min/1.73 m2) requires estimation of kidney damage for at least three months as defined by structural or functional abnormalities of the kidney, manifested by either:Pathological abnormalities or Markers of kidney damage (including abnormalities in the composition of the blood or urine or abnormalities in imaging tests). Lab Interpretation Abnormal (test code = 36028-3) [facility] WITH [id number] 00:21:10 Test Item Value Reference Range Interpretation Comments WBC (test code = See_Comment [Automated 8190-2) message] The sy stem which generated this result transmitted reference range : 4.20 - 10.70 10*3/?L. The reference range was not used to interpret this result as normal/abnormal . RBC (test code = See_Comment L [Automated 769-8) message] The sy stem which generated this result transmitted reference range : 4.26 - 5.52 10*6/?L. The reference range was not used to interpret this result as normal/abnormal . HGB (test code = 9.1 g/dL 12.2-16.4 L 718-7) HCT (test code = 29.8 % 38.4-49.3 L 4544-3) MCV (test code = 86.4 fL 81.7-95.6 787-2) MCH (test code = 26.4 pg 26.1-32.7 785-6) MCHC (test code = 30.5 g/dL 31.2-35 L 786-4) RDW-SD (test code = 59.7 fL 38.5-51.6 H 50130-5) RDW-CV (test code = 19.0 % 12.1-15.4 H 788-0) PLT (test code = See_Comment [Automated 777-3) message] The sy stem which generated this result transmitted reference range : 150 - 328 10*3/ ?L. The reference r stephanie was not used to interpret this result as normal/abnormal . MPV (test code = 10.5 fL 9.8-13 23404-7) NRBC/100 WBC (test See_Comment [Automat ed code = 6306384928) message] The system which generated this result transmitted reference range : 0.0 - 10.0 /100 WBCs. The refer ence range was not u sed to interpret th is result as normal/abnormal . NRBC x10^3 (test code See_Comment [Auto mated = 4903273893) message] The s ystem which generated this result transmitted reference range : 10*3/?L. The reference range was not used to interpret this result as normal/abnormal . GRAN MAT (NEUT) % 50.9 % (test code = 770-8) IMM GRAN % (test code 0.50 % = 5129778181) LYMPH % (test code = 21.8 % 736-9) MONO % (test code = 12.9 % 5905-5) EOS % (test code = 12.7 % 713-8) BASO % (test code = 1.2 % 706-2) GRAN MAT x10^3(ANC) 3.92 10*3/uL 1.99-6.95 (test code = 8561575218) IMM GRAN x10^3 (test 0.04 10*3/uL 0-0.06 code = 6596300494) LYMPH x10^3 (test code 1.68 10*3/uL 1.09-3.23 = 731-0) MONO x10^3 (test code 0.99 10*3/uL 0.36-1.02 = 742-7) EOS x10^3 (test code = 0.98 10*3/uL 0.06-0.53 H 711-2) BASO x10^3 (test code 0.09 10*3/uL 0.01-0.09 = 704-7) Lab Interpretation Abnormal (test code = 13274-6) [facility] GLUCOSE (AUTOMATED)2021-11-22 16:20:26 Test Item Value Reference Range Interpretation Comments POCT GLU (test code = 1958874218) 211 mg/dL 70-110 H Lab Interpretation (test code = Abnormal 69093-2) [facility] GLUCOSE (AUTOMATED)2021-11-22 12:57:11 Test Item Value Reference Range Interpretation Comments POCT GLU (test code = 4305256705) 237 mg/dL 70-110 H Lab Interpretation (test code = Abnormal 13343-8) [facility] GLUCOSE (AUTOMATED)2021-11-21 22:10:02 Test Item Value Reference Range Interpretation Comments POCT GLU (test code = 0891345958) 229 mg/dL 70-110 H Lab Interpretation (test code = Abnormal 75995-9) [facility] GLUCOSE (AUTOMATED)2021-11-21 17:12:43 Test Item Value Reference Range Interpretation Comments POCT GLU (test code = 0322016031) 208 mg/dL 70-110 H Lab Interpretation (test code = Abnormal 61261-7) [facility] WITH [id number] 14:22:33 Test Item Value Reference Range Interpretation Comments WBC (test code = See_Comment L [Automated 6690-2) message] The sy stem which generated this result transmitted reference range : 4.20 - 10.70 10*3/?L. The reference range was not used to interpret this result as normal/abnormal . RBC (test code = See_Comment L [Automated 789-8) message] The sy stem which generated this result transmitted reference range : 4.26 - 5.52 10*6/?L. The reference range was not used to interpret this result as normal/abnormal . HGB (test code = 7.7 g/dL 12.2-16.4 L 718-7) HCT (test code = 24.6 % 38.4-49.3 L 4544-3) MCV (test code = 80.9 fL 81.7-95.6 L 787-2) MCH (test code = 25.3 pg 26.1-32.7 L 785-6) MCHC (test code = 31.3 g/dL 31.2-35.0 786-4) RDW-SD (test code = 51.1 fL 38.5-51.6 83461-4) RDW-CV (test code = 17.2 % 12.1-15.4 H 788-0) PLT (test code = See_Comment [Automated 777-3) message] The sy stem which generated this result transmitted reference range : 150 - 328 10*3/ ?L. The reference r stephanie was not used to interpret this result as normal/abnormal . MPV (test code = 10.7 fL 9.8-13.0 38535-7) NRBC/100 WBC (test See_Comment [Automat ed code = 7929203869) message] The system which generated this result transmitted reference range : 0.0 - 10.0 /100 WBCs. The refer ence range was not u sed to interpret th is result as normal/abnormal . NRBC x10^3 (test code <0.01 See_Comment [Auto mated = 9821689208) message] The s ystem which generated this result transmitted reference range : 10*3/?L. The reference range was not used to interpret this result as normal/abnormal . GRAN MAT (NEUT) % 60.2 % (test code = 770-8) IMM GRAN % (test code 0.80 % = 8993356834) LYMPH % (test code = 24.4 % 736-9) MONO % (test code = 14.3 % 5905-5) EOS % (test code = 0.3 % 713-8) BASO % (test code = 0.0 % 706-2) GRAN MAT x10^3(ANC) 2.15 10*3/uL 1.99-6.95 (test code = 7399645593) IMM GRAN x10^3 (test 0.03 10*3/uL 0.00-0.06 code = 2938953721) LYMPH x10^3 (test code 0.87 10*3/uL 1.09-3.23 L = 731-0) MONO x10^3 (test code 0.51 10*3/uL 0.36-1.02 = 742-7) EOS x10^3 (test code = <0.03 0.06-0.53 L 711-2) BASO x10^3 (test code <0.03 0.01-0.09 = 704-7) KATE CELLS (test code 2+ See_Comment A [Auto mated = 7790-9) message] The sy stem which generated this result transmitted reference range : (none). The reference range was not used to interpret this result as normal/abnormal . ELLIPTO/OVAL (test 2+ See_Comment A [Automat ed code = 76465-7) message] The system which generated this result transmitted reference range : (none). The reference range was not used to interpret this result as normal/abnormal . BANDS (test code = Increased A 2406209377) LG GRAN LYMPHS (test Rare Rare code = 3752201663) GIANT PLATELETS (test Present See_Comment A [Auto mated code = 5908-9) message] The system which generated this result transmitted reference range : (none). The reference range was not used to interpret this result as normal/abnormal . Lab Interpretation Abnormal (test code = 42232-1) [facility]21-11-21 13:39:25 Test Item Value Reference Range Interpretation Comments POCT GLU (test code = 5891052312) 212 mg/dL 70-110 H Lab Interpretation (test code = Abnormal 04036-1) [facility] (NA, K, CL, CO2, GLUCOSE, BUN, CREATININE, CA)2021-11-21 11:11:53 Test Item Value Reference Range Interpretation Comments NA (test code = 136 mmol/L 135-145 6964910507) K (test code = 4.8 mmol/L 3.5-5.0 6603470482) CL (test code = 102 mmol/L 98-108 4424844431) CO2 TOTAL (test code = 26 mmol/L 23-31 1578678369) AGAP (test code = 2-16 9201040519) BUN (test code = 36 mg/dL 7-23 H 7640079460) GLUCOSE (test code = 204 mg/dL 70-110 H 7415126342) CREATININE (test code = 0.85 mg/dL 0.60-1.25 5289318001) CALCIUM (test code = 8.6 mg/dL 8.6-10.6 4552433297) eGFR (test code = mL/min/1.73m2 4037344706) LUZ (test code = LUZ) Association of Glomerular Filtration Rate (GFR) and Staging of Kidney Disease* + --+ --+ ------+| GFR (mL/min/1.73 m2) ?| With Kidney Damage ?| ?Without Kidney Damage+ --------+ --------+ +| ?>90 ?| ?Stage one ?| ? Normal ?+ ---+ ---+ -------+| ?60-89 ?| ?Stage two ?| ? Decreased GFR ? + --+ --+ ------+| ?30-59 ?| ?Stage three ?| ? Stage three ? + --+ --+ ------+| ?15-29 ?| ?Stage four ? | ? Stage four ?+ ---+ ---+ -------+| ?<15 (or dialysis) ? ?| ?Stage five ? | ? Stage five ?+ ---+ ---+ -------+ *Each stage assumes the associated GFR level has been in effect for at least three months. ?Stages 1 to 5, with or without kidney disease, indicate chronic kidney disease. Notes: Determination of stages one and two (with eGFR >59mL/min/1.73 m2) requires estimation of kidney damage for at least three months as defined by structural or functional abnormalities of the kidney, manifested by either:Pathological abnormalities or Markers of kidney damage (including abnormalities in the composition of the blood or urine or abnormalities in imaging tests). Lab Interpretation Abnormal (test code = 22907-2) [facility]-21 06:56:21 Test Item Value Reference Range Interpretation Comments Height (test code = in 3754021717) Weight (test code = lbs 5681338238) Systolic BP (test code = mmHg 1492895900) Diastolic BP (test code = mmHg 0845800114) Heart Rate (test code = bpm 9287666127) BSA (test code = 2.08 m2 0309099016) Ao root annulus (test code 3.3 cm = 1762312588) Ao root diam (test code = 3.30 cm 2500442600) Aortic root (test code = 3.3 cm 0068851422) LVOT diameter (test code = 1.86 cm 6256140049) LVIDD (test code = 3.30 cm 4949704831) IVS (test code = 1.51 cm 2537707323) Interventricular Septum 1.51 cm Diastolic Thickness by 2D (test code = 0258365) LVPWD (test code = 1.53 cm 5473045158) PW (test code = 1.53 cm 0.6-1.7 9150556498) EF(Teich) (test code = 58.10 % 4020375184) LVIDS (test code = 2.33 cm 2304581918) FS (test code = 30 % 8690774586) EF - 2D (test code = 58.10 % 44516575) LA size (test code = 5.4 cm 3404559335) TR Peak Norberto (test code = 300.5 cm/s 4096713231) Triscuspid Valve mmHg Regurgitation Peak Gradient (test code = 8467858502) Pulmonic Regurgitant End 52.1 cm/s Max Velocity (test code = 5040406891) LAV(MOD-sp4) (test code = 144.00 mL 5912618531) MV stenosis pressure 1/2 75.1 ms time (test code = 8841313114) MV Peak E Norberto (test code = 160.8 cm/s 2850998703) E wave decelartion time 0.25 s (test code = 1803014759) MV Peak A Norberto (test code = 65.7 cm/s 2834989755) E/A ratio (test code = ratio 8876420939) MR max PG (test code = 67.10 mm[Hg] 7599951312) MR max norberto (test code = 409.60 cm/s 9642305845) Mr max norberto (test code = 409.6 m/s 3183679198) MV Prop V (test code = 80.30 cm/s 4310631251) MV E/e' septal (test code 11.8 cm/s = 5338003011) Tapse (test code = 0.67 cm 4334581701) LVOT stroke volume (test 56.70 cm3 code = 2639428727) LVOT peak norberto (test code = 98.5 cm/s 2891392964) LVOT mn grad (test code = mmHg 9203035353) AV LVOT peak gradient mmHg (test code = 1867306301) LVOT peak VTI (test code = 20.8 cm 5936651908) LV V1 mean (test code = 70.30 cm/s 6234826994) Aortic valve mean velocity 107.1 cm/s (test code = 8043444216) Ao peak norberto (test code = 148.3 cm/s 0257376377) Ao VTI (test code = 27.8 cm 4124448237) AV area by cont VTI (test 2.0 cm2 code = 6269572882) AV area peak norberto (test 1.8 cm2 code = 0582975226) Ao max PG (test code = 8.80 mm[Hg] 4547256244) AV peak gradient (test mmHg code = 1010755159) AV valve area (test code = 2.04 cm2 2925855334) AV mean gradient (test mmHg code = 1045409789) Radiology Study observation (narrative) (test code = 92450-9) LUZ (test code = LUZ) ?Left?Ventricle: Left ventricle size is normal. Moderately increased wall thickness. Normal systolic function with a visually estimated EF of 55 - 60%. ?Pulmonic?Valve: Pulmonic valve is normal in structure and function. ?Mitral?Valve: Mitral valve structure is normal. Moderately thickened leaflets. Moderately calcified leaflets. ?Tricuspid?Valve: Tricuspid valve structure is normal. [facility] GLUCOSE (AUTOMATED)2021-11-21 04:55:54 Test Item Value Reference Range Interpretation Comments POCT GLU (test code = 7641541218) 284 mg/dL 70-110 H Lab Interpretation (test code = Abnormal 43226-3) [facility] GLUCOSE (AUTOMATED)2021-11-21 03:03:48 Test Item Value Reference Range Interpretation Comments POCT GLU (test code = 4091727751) 344 mg/dL 70-110 H Lab Interpretation (test code = Abnormal 08379-5) [facility] GLUCOSE (AUTOMATED)2021-11-20 21:19:00 Test Item Value Reference Range Interpretation Comments POCT GLU (test code = 1970668229) 327 mg/dL 70-110 H Lab Interpretation (test code = Abnormal 84249-9) [facility] GLUCOSE (AUTOMATED)2021-11-20 16:12:09 Test Item Value Reference Range Interpretation Comments POCT GLU (test code = 4136884921) 266 mg/dL 70-110 H Lab Interpretation (test code = Abnormal 57813-8) [facility] WITH [id number] 14:17:38 Test Item Value Reference Range Interpretation Comments WBC (test code = See_Comment L [Automated 6690-2) message] The sy stem which generated this result transmitted reference range : 4.20 - 10.70 10*3/?L. The reference range was not used to interpret this result as normal/abnormal . RBC (test code = See_Comment L [Automated 789-8) message] The sy stem which generated this result transmitted reference range : 4.26 - 5.52 10*6/?L. The reference range was not used to interpret this result as normal/abnormal . HGB (test code = 8.6 g/dL 12.2-16.4 L 718-7) HCT (test code = 28.0 % 38.4-49.3 L 4544-3) MCV (test code = 82.8 fL 81.7-95.6 787-2) MCH (test code = 25.4 pg 26.1-32.7 L 785-6) MCHC (test code = 30.7 g/dL 31.2-35.0 L 786-4) RDW-SD (test code = 52.3 fL 38.5-51.6 H 91679-9) RDW-CV (test code = 17.5 % 12.1-15.4 H 788-0) PLT (test code = See_Comment [Automated 777-3) message] The sy stem which generated this result transmitted reference range : 150 - 328 10*3/ ?L. The reference r stephanie was not used to interpret this result as normal/abnormal . MPV (test code = 10.2 fL 9.8-13.0 88863-4) NRBC/100 WBC (test See_Comment [Automat ed code = 6376245672) message] The system which generated this result transmitted reference range : 0.0 - 10.0 /100 WBCs. The refer ence range was not u sed to interpret th is result as normal/abnormal . NRBC x10^3 (test code <0.01 See_Comment [Auto mated = 3723996462) message] The s ystem which generated this result transmitted reference range : 10*3/?L. The reference range was not used to interpret this result as normal/abnormal . GRAN MAT (NEUT) % 62.0 % (test code = 770-8) IMM GRAN % (test code 1.90 % = 0240884038) LYMPH % (test code = 22.7 % 736-9) MONO % (test code = 13.1 % 5905-5) EOS % (test code = 0.0 % 713-8) BASO % (test code = 0.3 % 706-2) GRAN MAT x10^3(ANC) 1.99 10*3/uL 1.99-6.95 (test code = 7011673255) IMM GRAN x10^3 (test 0.06 10*3/uL 0.00-0.06 code = 8584822694) LYMPH x10^3 (test code 0.73 10*3/uL 1.09-3.23 L = 731-0) MONO x10^3 (test code 0.42 10*3/uL 0.36-1.02 = 742-7) EOS x10^3 (test code = <0.03 0.06-0.53 L 711-2) BASO x10^3 (test code <0.03 0.01-0.09 = 704-7) KATE CELLS (test code 2+ See_Comment A [Auto mated = 1323-9) message] The sy stem which generated this result transmitted reference range : (none). The reference range was not used to interpret this result as normal/abnormal . ELLIPTO/OVAL (test 2+ See_Comment A [Automat ed code = 50150-9) message] The system which generated this result transmitted reference range : (none). The reference range was not used to interpret this result as normal/abnormal . BANDS (test code = Increased A 2171921802) LG GRAN LYMPHS (test Rare Rare code = 3840818661) TOXIC CHANGES (test Present A code = 803-7) Lab Interpretation Abnormal (test code = 04317-6) [facility] [id number] 14:00:33 Test Item Value Reference Interpretation Comments Range TROPONIN I (test 0.022 ng/mL See_Comment [Automated code = 7946473644) message] The system which generated this result transmitted reference range : <=0.034. The reference range was not used to interpret this result as normal/abnormal . LUZ (test code = Reference (Normal) LUZ) Range (defined by the 99th percentile reference limit): <= 0.034 ng/mL Note: Cardiac troponin begins to rise 3-4 hours after the onset of ischemia. Repeat in 4-6 hours if the sample was drawn within 3-4 hours of the onset of the symptom and found normal. Diagnosis of myocardial injury is made with acute changes in cTn concentrations with at least one serial sample above the 99th percentile upper reference limit (URL), taken together with the patient's clinical presentation. Biotin has been reported to cause a negative bias, interpret results relative to patient's use of biotin. Lab Interpretation Normal (test code = 32638-1) [facility] [id number] 13:57:36 Test Item Value Reference Range Interpretation Comments NT-proBNP (test code 3560 pg/mL See_Comment H [Autom ated = 3862558660) message] The system which generated this result transmitted reference range : <=450. The reference range was not used to interpret this result as normal/abnormal . LUZ (test code = LUZ) Biotin has been reported to cause a negative bias, interpret results relative to patient's use of biotin. Lab Interpretation Abnormal (test code = 17797-3) [facility]21-[facility]-20 12:56:09 Test Item Value Reference Range Interpretation Comments POCT GLU (test code = 1633704821) 258 mg/dL 70-110 H Lab Interpretation (test code = Abnormal 58931-2) [facility] METABOLIC PANEL (NA, K, CL, CO2, GLUCOSE, BUN, CREATININE, CA)2021-11-20 11:53:23 Test Item Value Reference Range Interpretation Comments NA (test code = 137 mmol/L 135-145 6551472236) K (test code = 4.4 mmol/L 3.5-5.0 4154468227) CL (test code = 100 mmol/L 98-108 3023852803) CO2 TOTAL (test code = 27 mmol/L 23-31 7382704203) AGAP (test code = 2-16 1384064638) BUN (test code = 35 mg/dL 7-23 H 7459564133) GLUCOSE (test code = 258 mg/dL 70-110 H 2728410893) CREATININE (test code = 1.01 mg/dL 0.60-1.25 1068730581) CALCIUM (test code = 8.7 mg/dL 8.6-10.6 9486417390) eGFR (test code = mL/min/1.73m2 9935844397) LUZ (test code = LUZ) Association of Glomerular Filtration Rate (GFR) and Staging of Kidney Disease* + --+ --+ ------+| GFR (mL/min/1.73 m2) ?| With Kidney Damage ?| ?Without Kidney Damage+ --------+ --------+ +| ?>90 ?| ?Stage one ?| ? Normal ?+ ---+ ---+ -------+| ?60-89 ?| ?Stage two ?| ? Decreased GFR ? + --+ --+ ------+| ?30-59 ?| ?Stage three ?| ? Stage three ? + --+ --+ ------+| ?15-29 ?| ?Stage four ? | ? Stage four ?+ ---+ ---+ -------+| ?<15 (or dialysis) ? ?| ?Stage five ? | ? Stage five ?+ ---+ ---+ -------+ *Each stage assumes the associated GFR level has been in effect for at least three months. ?Stages 1 to 5, with or without kidney disease, indicate chronic kidney disease. Notes: Determination of stages one and two (with eGFR >59mL/min/1.73 m2) requires estimation of kidney damage for at least three months as defined by structural or functional abnormalities of the kidney, manifested by either:Pathological abnormalities or Markers of kidney damage (including abnormalities in the composition of the blood or urine or abnormalities in imaging tests). Lab Interpretation Abnormal (test code = 56810-1) [facility]-29 11:53:23 Test Item Value Reference Range Interpretation Comments MAGNESIUM (test code = 7088947931) 2.3 mg/dL 1.7-2.4 Lab Interpretation (test code = Normal 79866-7) [facility] GLUCOSE (AUTOMATED)2021-11-20 02:00:42 Test Item Value Reference Range Interpretation Comments POCT GLU (test code = 1209362829) 211 mg/dL 70-110 H Lab Interpretation (test code = Abnormal 41464-0) [facility] GLUCOSE (AUTOMATED)2021-11-19 21:24:48 Test Item Value Reference Range Interpretation Comments POCT GLU (test code = 4289542790) 108 mg/dL 70-110 Lab Interpretation (test code = Normal 46268-6) [facility] GLUCOSE (AUTOMATED)2021-11-19 17:25:06 Test Item Value Reference Range Interpretation Comments POCT GLU (test code = 9840611866) 78 mg/dL 70-110 Lab Interpretation (test code = Normal 33216-5) [facility] GLUCOSE (AUTOMATED)2021-11-19 16:10:23 Test Item Value Reference Range Interpretation Comments POCT GLU (test code = 2420775130) 115 mg/dL 70-110 H Lab Interpretation (test code = Abnormal 94606-2) [facility]-REACTIVE [id number] 15:26:09 Test Item Value Reference Range Interpretation Comments CRP (test code = 0516805418) 1.2 mg/dL <0.8 H Lab Interpretation (test code = Abnormal 10307-2) [facility] WITH [id number] 14:10:50 Test Item Value Reference Range Interpretation Comments WBC (test code = See_Comment [Automated 6690-2) message] The system which generated this result transmitted reference range : 4.20 - 10.70 10*3/?L. The reference range was not used to interpret this result as normal/abnormal . RBC (test code = See_Comment L [Automated 789-8) message] The system which generated this result transmitted reference range : 4.26 - 5.52 10*6/?L. The reference range was not used to interpret this result as normal/abnormal . HGB (test code = 7.7 g/dL 12.2-16.4 L 718-7) HCT (test code = 24.9 % 38.4-49.3 L 4544-3) MCV (test code = 82.2 fL 81.7-95.6 787-2) MCH (test code = 25.4 pg 26.1-32.7 L 785-6) MCHC (test code = 30.9 g/dL 31.2-35.0 L 786-4) RDW-SD (test code = 52.5 fL 38.5-51.6 H 43213-3) RDW-CV (test code = 17.7 % 12.1-15.4 H 788-0) PLT (test code = See_Comment [Automated 777-3) message] The system which generated this result transmitted reference range : 150 - 328 10*3/?L. The reference range was not used to interpret this result as normal/abnormal . MPV (test code = 10.0 fL 9.8-13.0 26494-3) NRBC/100 WBC (test See_Comment [Automat ed code = 5848393325) message] The system which generated this result transmitted reference range : 0.0 - 10.0 /100 WBCs. The reference range was not used to interpret this result as normal/abnormal . NRBC x10^3 (test code <0.01 See_Comment [Auto mated = 4281999542) message] The system which generated this result transmitted reference range : 10*3/?L. The reference range was not used to interpret this result as normal/abnormal . GRAN MAT (NEUT) % 63.4 % (test code = 770-8) IMM GRAN % (test code 0.70 % = 5691174118) LYMPH % (test code = 12.6 % 736-9) MONO % (test code = 18.9 % 5905-5) EOS % (test code = 3.5 % 713-8) BASO % (test code = 0.9 % 706-2) GRAN MAT x10^3(ANC) 2.71 10*3/uL 1.99-6.95 (test code = 2026392451) IMM GRAN x10^3 (test 0.03 10*3/uL 0.00-0.06 code = 3865849243) LYMPH x10^3 (test 0.54 10*3/uL 1.09-3.23 L code = 731-0) MONO x10^3 (test code 0.81 10*3/uL 0.36-1.02 = 742-7) EOS x10^3 (test code 0.15 10*3/uL 0.06-0.53 = 711-2) BASO x10^3 (test code 0.04 10*3/uL 0.01-0.09 = 704-7) ELLIPTO/OVAL (test 2+ See_Comment A [Automat ed code = 82199-7) message] The system which generated this result transmitted reference range : (none). The reference range was not used to interpret this result as normal/abnormal . POLYCHROMASIA (test 2+ See_Comment [Automa beatrice code = 49395-3) message] The system which generated this result transmitted reference range : 2+. The referen ce range was not used to interpr et this result as normal/abnormal . BANDS (test code = MARKED INCREASED A 8699126372) Lab Interpretation Abnormal (test code = 28231-6) [facility] TylerURIC [id number] 10:45:11 Test Item Value Reference Range Interpretation Comments URIC ACID (test code = 5116504994) 11.0 mg/dL 3.6-8.0 H Lab Interpretation (test code = Abnormal 24923-8) [facility]CREATINE [id number] 10:44:51 Test Item Value Reference Range Interpretation Comments CK (test code = 3745849265) 33 U/L 33-194 Lab Interpretation (test code = Normal 53711-6) [facility] TylerTROPONIN [id number] 10:17:49 Test Item Value Reference Interpretation Comments Range TROPONIN I (test 0.039 ng/mL See_Comment H [Automated code = 6406053471) message] The system which generated this result transmitted reference range : <=0.034. The reference range was not used to interpret this result as normal/abnormal . LUZ (test code = Reference (Normal) LUZ) Range (defined by the 99th percentile reference limit): <= 0.034 ng/mL Note: Cardiac troponin begins to rise 3-4 hours after the onset of ischemia. Repeat in 4-6 hours if the sample was drawn within 3-4 hours of the onset of the symptom and found normal. Diagnosis of myocardial injury is made with acute changes in cTn concentrations with at least one serial sample above the 99th percentile upper reference limit (URL), taken together with the patient's clinical presentation. Biotin has been reported to cause a negative bias, interpret results relative to patient's use of biotin. Lab Interpretation Abnormal (test code = 72500-6) [facility]MINAL [id number] 10:14:27 Test Item Value Reference Range Interpretation Comments NT-proBNP (test code 3970 pg/mL See_Comment H [Autom ated = 2785537727) message] The system which generated this result transmitted reference range : <=450. The reference range was not used to interpret this result as normal/abnormal . LUZ (test code = LUZ) Biotin has been reported to cause a negative bias, interpret results relative to patient's use of biotin. Lab Interpretation Abnormal (test code = 80156-0) [facility]COMP[facility] METABOLIC PANEL (97913)2021-11-19 10:06:07 Test Item Value Reference Range Interpretation Comments NA (test code = 136 mmol/L 135-145 4045981976) K (test code = 4.2 mmol/L 3.5-5.0 4626697040) CL (test code = 99 mmol/L 98-108 1791023910) CO2 TOTAL (test code = 25 mmol/L 23-31 2160465279) AGAP (test code = 2-16 1315306663) BUN (test code = 32 mg/dL 7-23 H 7152048271) GLUCOSE (test code = 75 mg/dL 70-110 1257126198) CREATININE (test code = 1.29 mg/dL 0.60-1.25 H 2624821248) TOTAL BILI (test code = 0.5 mg/dL 0.1-1.7 2357787266) CALCIUM (test code = 8.5 mg/dL 8.6-10.6 L 0911850808) T PROTEIN (test code = 6.7 g/dL 6.3-8.2 7083553967) ALBUMIN (test code = 3.8 g/dL 3.5-5.0 9443274625) ALK PHOS (test code = 75 U/L 34-122 6504045260) ALTv (test code = 9 U/L 5-50 1742-6) AST(SGOT) (test code = 17 U/L 13-40 7872774891) eGFR (test code = mL/min/1.73m2 9023326230) LUZ (test code = LUZ) Association of Glomerular Filtration Rate (GFR) and Staging of Kidney Disease* + --+ --+ ------+| GFR (mL/min/1.73 m2) ?| With Kidney Damage ?| ?Without Kidney Damage+ --------+ --------+ +| ?>90 ?| ?Stage one ?| ? Normal ?+ ---+ ---+ -------+| ?60-89 ?| ?Stage two ?| ? Decreased GFR ? + --+ --+ ------+| ?30-59 ?| ?Stage three ?| ? Stage three ? + --+ --+ ------+| ?15-29 ?| ?Stage four ? | ? Stage four ?+ ---+ ---+ -------+| ?<15 (or dialysis) ? ?| ?Stage five ? | ? Stage five ?+ ---+ ---+ -------+ *Each stage assumes the associated GFR level has been in effect for at least three months. ?Stages 1 to 5, with or without kidney disease, indicate chronic kidney disease. Notes: Determination of stages one and two (with eGFR >59mL/min/1.73 m2) requires estimation of kidney damage for at least three months as defined by structural or functional abnormalities of the kidney, manifested by either:Pathological abnormalities or Markers of kidney damage (including abnormalities in the composition of the blood or urine or abnormalities in imaging tests). Lab Interpretation Abnormal (test code = 63490-3) [facility]2022-06-28 10:06:07 Test Item Value Reference Range Interpretation Comments MAGNESIUM (test code = 4831338889) 2.1 mg/dL 1.7-2.4 Lab Interpretation (test code = Normal 40852-6) [facility]PHOSPHORUS2022-06-28 10:05:47 Test Item Value Reference Range Interpretation Comments PHOSPHORUS (test code = 4762452384) 4.3 mg/dL 2.5-5.0 Lab Interpretation (test code = Normal 87476-7) [facility] TylerLACTATE [id number] 04:25:54 Test Item Value Reference Range Interpretation Comments LDH (test code = 7713487052) 321 U/L 300-600 Lab Interpretation (test code = Normal 60459-8) [facility] TylerTROPONIN [id number] 01:07:32 Test Item Value Reference Interpretation Comments Range TROPONIN I (test 0.019 ng/mL See_Comment [Automated code = 9017295568) message] The system which generated this result transmitted reference range : <=0.034. The reference range was not used to interpret this result as normal/abnormal . LUZ (test code = Reference (Normal) LUZ) Range (defined by the 99th percentile reference limit): <= 0.034 ng/mL Note: Cardiac troponin begins to rise 3-4 hours after the onset of ischemia. Repeat in 4-6 hours if the sample was drawn within 3-4 hours of the onset of the symptom and found normal. Diagnosis of myocardial injury is made with acute changes in cTn concentrations with at least one serial sample above the 99th percentile upper reference limit (URL), taken together with the patient's clinical presentation. Biotin has been reported to cause a negative bias, interpret results relative to patient's use of biotin. Lab Interpretation Normal (test code = 78126-0) [facility] TylerPROCALCITONIN2022-06-27 21:13:39 Test Item Value Reference Range Interpretation Comments Procalcitonin (test 0.05 ng/mL <0.07 code = 4265554763) LUZ (test code = LUZ) INTERPRETATION OF PROCALCITONIN RESULTS IN ADULTS >= 18 YEARS OF AGE Initiation and discontinuation of antibiotics on patients with suspected or confirmed Lower Respiratory Tract Infection in Adults >= 18 years of age. + +-------- --------+ + -----+|Procalcitonin |Interpretation ?|Antibiotic ? ? |Considerations ? |ng/mL ? | ?|recommendation | ? + +-------- --------+ + -----+| <0.1 ? | Bacterial ? ? ?| Strongly ? ? ?| ? | ?| infection very | discouraged ? | Overruling: ? | ?| unlikely ? ? ? | ? | ? Clinically unstable ? ? ? + +-------- --------+ + ? High risk for adverse ? ? | <0.25 ?| Bacterial ? ? ?| Discouraged ? | ? outcome ? | ?| infection ? ? ?| ? | ? SEE IMPORTANT NOTE ?| ?| unlikely ? ? ? | ? | ? + +-------- --------+ + -----+| >=0.25 ? ? ? | Bacterial ? ? ?| Encouraged ? ?| ? | ?| infection ? ? ?| ? | ? | ?| likely ? | ? | Consider treatment failure ?+ +------- ---------+ -+ if levels does not decrease | >0.5 ? | Bacterial ? ? ?| Strongly ? ? ?| appropriately ? | ?| infection very | encouraged ? ?| ? | ?| likely ? | ? | ? + +-------- --------+ + -----+ Discontinuation of antibiotics in high-acuity patients with suspected or confirmed sepsis in Adults >= 18 years of age. + +-------- --------+ + -----+|Procalcitonin |Interpretation ?|Antibiotic ? ? |Considerations ? |ng/mL ? | ?|recommendation | ? + +-------- --------+ + -----+| <0.25 ?| Bacterial ? ? ?| Strongly ? ? ?| ? | ?| infection very | discouraged ? | Overruling: ? | ?| unlikely ? ? ? | ? | ? Clinically unstable ? ? ? + +-------- --------+ + ? High risk for adverse ? ? | <0.5 or drop | Bacterial ? ? ?| Discouraged ? | ? outcome ? | >80% from ? ?| infection ? ? ?| ? | ? SEE IMPORTANT NOTE ?| highest PCT ?| unlikely ? ? ? | ? | ? | level ?| ?| ? | ? + +-------- --------+ + -----+| >=0.5 ?| Bacterial ? ? ?| Encouraged ? ?| ? | ?| infection ? ? ?| ? | ? | ?| likely ? | ? | Consider treatment failure ?+ +------- ---------+ -+ if levels does not decrease | >1.0 ? | Bacterial ? ? ?| Strongly ? ? ?| appropriately ? | ?| infection very | encouraged ? ?| ? | ?| likely ? | ? | ? + +-------- --------+ + -----+ Percentage of drop of Procalcitonin calculation for Discontinuation of antibiotics in high-acuity patients with suspected or confirmed sepsis in Adults >= 18 years of age. ? Procalcitonin highest{}-Procalcitonin current{}Delta Procalcitonin = x100% ? Procalcitonin current {} IMPORTANT NOTE: Procalcitonin may be elevated without bacterial infection by physiologic stress related to trauma, martinez, chronic dialysis, metastatic cancer, surgery in the past seven days, malaria, some fungal infections, and some forms of vasculitis. The interpretation algorithm may not apply to patients with immunosuppression (equivalent of >10 mg of prednisone daily), HIV with CD4 cell count < 350 cells/mm3, active malignancy on systemic chemotherapy, solid organ transplant or hematopoietic stem cell transplantation, or hospital acquired pneumonia. Additionally, some clinical trials of procalcitonin have excluded patients with shock requiring vasopressor use, acute respiratory failure requiring mechanical ventilation, or those with known lung abscess/empyema. For further information please refer to:[email or web address] Lab Interpretation Normal (test code = 49034-9) [facility] TylerVITAMIN B12, [id number] 20:59:39 Test Item Value Reference Range Interpretation Comments VIT B12 (test code = 224 pg/mL 240-930 L 9998178408) LUZ (test code = LUZ) Biotin has been reported to cause a positive bias, interpret results relative to patient's use of biotin. Lab Interpretation (test Abnormal code = 79852-0) [facility] Tyler[facility]IT[facility] D, [id number] 20:58:17 Test Item Value Reference Range Interpretation Comments VIT D 25OH (test code = 20 ng/mL 25-80 L 67592-2) LUZ (test code = LUZ) Deficiency: <20 ng/mLInsufficiency: 20-24 ng/mLOptimal: 25-80 ng/mL Lab Interpretation (test Abnormal code = 99179-4) [facility] TylerTROPONIN [id number] 18:33:52 Test Item Value Reference Interpretation Comments Range TROPONIN I (test 0.024 ng/mL See_Comment [Automated code = 8152767447) message] The system which generated this result transmitted reference range : <=0.034. The reference range was not used to interpret this result as normal/abnormal . LUZ (test code = Reference (Normal) LUZ) Range (defined by the 99th percentile reference limit): <= 0.034 ng/mL Note: Cardiac troponin begins to rise 3-4 hours after the onset of ischemia. Repeat in 4-6 hours if the sample was drawn within 3-4 hours of the onset of the symptom and found normal. Diagnosis of myocardial injury is made with acute changes in cTn concentrations with at least one serial sample above the 99th percentile upper reference limit (URL), taken together with the patient's clinical presentation. Biotin has been reported to cause a negative bias, interpret results relative to patient's use of biotin. Lab Interpretation Normal (test code = 49151-1) [id number]:46[facility]44 Test Item Value Reference Interpretation Comments Range TROPONIN I (test 0.027 ng/mL See_Comment [Automated code = 5552612071) message] The system which generated this result transmitted reference range : <=0.034. The reference range was not used to interpret this result as normal/abnormal . LUZ (test code = Reference (Normal) LUZ) Range (defined by the 99th percentile reference limit): <= 0.034 ng/mL Note: Cardiac troponin begins to rise 3-4 hours after the onset of ischemia. Repeat in 4-6 hours if the sample was drawn within 3-4 hours of the onset of the symptom and found normal. Diagnosis of myocardial injury is made with acute changes in cTn concentrations with at least one serial sample above the 99th percentile upper reference limit (URL), taken together with the patient's clinical presentation. Biotin has been reported to cause a negative bias, interpret results relative to patient's use of biotin. Lab Interpretation Normal (test code = 81329-3) [facility] TylerCREATINE [id number] 16:34:19 Test Item Value Reference Range Interpretation Comments CK (test code = 1062968741) 21 U/L 33-194 L Lab Interpretation (test code = Abnormal 15381-1) [facility] TylerD-[id number] 15:18:30 Test Item Value Reference Interpretation Comments Range D-DIMER (test code = See_Comment H [Autom ated 5926068112) message] The system which generated this result transmitted reference range : <0.41 ?g/mL (FEU). The reference range was not used to interpret this result as normal/abnormal . LUZ (test code = This test may be LUZ) used in conjunction with a clinical pretest probability (PTP) assessment model to exclude venous thromboembolism (VTE) in patients suspected of deep venous thrombosis (DVT) and pulmonary embolism (PE) A D-Dimer value less than 0.50 ?g/ml (FEU) has a negative predicative value of 96 to 100% (95% CI)and 97 to 100% (95% CI) as an aid in the diagnosis of deep vein thrombosis (DVT) and pulmonary embolism when there is low or moderate pretest probability of PE or DVT. D-Dimer values are expressed in initial fibrinogen equivalent units (FEU)" The assay results should be used with other information, including the clinical context, in forming a diagnosis. Lab Interpretation Abnormal (test code = 75147-7) [facility] TylerProthrombin Time / [id number] 15:14:12 Test Item Value Reference Range Interpretation Comments PROTIME PATIENT (test See_Comment H [Auto mated message] code = 5964-2) The system [employer] generated this result transmitted ref erence range: 12.0 - 1 4.7 Seconds. The reference range was not used to int erpret this result as normal/abnormal . INR (test code = 6301-6) Nor mal INR <1.1; Warfarin Therap eutic range 2.0 to 3. 0 or 2.5 to 3.5, dep ending upon the indica tions. Lab Interpretation (test Abnormal code = 84727-2) [facility] TylerTHYROID STIMULATING [id number] 15:07:08 Test Item Value Reference Range Interpretation Comments TSH (test code = See_Comment [Automated message] 8434397954) The system [employer] generated this result transmitted ref erence range: 0.45 - 4 .70 mIU/L. The refe rence range was not u sed to interpret this result as normal/abnor mal. Lab Interpretation (test Normal code = 13998-1) [facility] TylerLIPID PANEL (27619)(TOTAL CHOLESTEROL, TRIGLYCERIDES, HDL)2021-11-18 14:47:08 Test Item Value Reference Range Interpretation Comments CHOL (test code = 87 mg/dL 120-200 L 8325972889) HDL (test code = 25 mg/dL >40 L 0271866351) HDLC RATIO (test code = See_Comment [Au tomated message] 8235217548) The system [employer] generated this result transmit beatrice reference range : <=5.0. The refe rence range was not u sed to interpret th is result as normal/abnormal . TRIG (test code = 116 mg/dL 30-170 8115321155) LDL CHOL (test code = 39 mg/dL See_Comment [Auto mated message] 28810-8) The system [employer] generated this result transmit beatrice reference range : <=160. The refe rence range was not u sed to interpret th is result as normal/abnormal . VLDL (test code = 23 mg/dL 5-60 3126216038) Lab Interpretation (test Abnormal code = 35506-6) [facility] [id number] 14:40:28 Test Item Value Reference Range Interpretation Comments IRON (test code = 8181758325) 44 ug/dL 50-160 L TIBC (test code = 3744987058) 420 ug/dL 250-410 H % FE SAT (test code = 6219413836) 10 % 20-50 L Lab Interpretation (test code = Abnormal 93314-4) [facility]DIGOXIN2022-[facility] 14:34:06 Test Item Value Reference Range Interpretation Comments DIGOXIN (test code = 0.9 ng/mL 0.8-1.6 1251248865) LUZ (test code = LUZ) Arrythmias: ?1.5 - 2.0 ng/mLToxic Range: ? Greater than or equal to 2.4 ng/mL Lab Interpretation (test Normal code = 61267-9) [facility] TylerURIC [id number] 14:33:51 Test Item Value Reference Range Interpretation Comments URIC ACID (test code = 7906455561) 10.0 mg/dL 3.6-8.0 H Lab Interpretation (test code = Abnormal 22196-2) [facility] TylerPHOSPHORUS2022-06-27 14:33:51 Test Item Value Reference Range Interpretation Comments PHOSPHORUS (test code = 1188132292) 4.0 mg/dL 2.5-5.0 Lab Interpretation (test code = Normal 75397-0) [facility] TylerGLYCOSYLATED HEMOGLOBIN (A1C)2021-11-18 14:13:22 Test Item Value Reference Range Interpretation Comments HGB A1C (test code = 7.6 % 4.0-5.7 H 4548-4) LUZ (test code = LUZ) Reference RangesNormal: <5.7%Prediabetes: 5.7 - 6.4%Diabetes: > 6.5% Lab Interpretation (test Abnormal code = 26182-9) [facility] TylerSEDIMENTATION [id number] 12:52:47 Test Item Value Reference Range Interpretation Comments ESR (test code = See_Comment H [Automated message] [id number]) The system [employer] generated this result transmitted ref erence range: 0 - 10 m m/HR. The reference r stephanie was not used to interpret this result as normal/abnor mal. Lab Interpretation (test Abnormal code = 45405-0) [facility] TylerTROPONIN [id number] 11:02:13 Test Item Value Reference Interpretation Comments Range TROPONIN I (test 0.021 ng/mL See_Comment [Automated code = 7858491123) message] The system which generated this result transmitted reference range : <=0.034. The reference range was not used to interpret this result as normal/abnormal . LUZ (test code = Reference (Normal) LUZ) Range (defined by the 99th percentile reference limit): <= 0.034 ng/mL Note: Cardiac troponin begins to rise 3-4 hours after the onset of ischemia. Repeat in 4-6 hours if the sample was drawn within 3-4 hours of the onset of the symptom and found normal. Diagnosis of myocardial injury is made with acute changes in cTn concentrations with at least one serial sample above the 99th percentile upper reference limit (URL), taken together with the patient's clinical presentation. Biotin has been reported to cause a negative bias, interpret results relative to patient's use of biotin. Lab Interpretation Normal (test code = 99527-9) [facility] TylerN-TERMINAL [id number] 10:58:54 Test Item Value Reference Range Interpretation Comments NT-proBNP (test code 2210 pg/mL See_Comment H [Autom ated = 3336117261) message] The system which generated this result transmitted reference range : <=450. The reference range was not used to interpret this result as normal/abnormal . LUZ (test code = LUZ) Biotin has been reported to cause a negative bias, interpret results relative to patient's use of biotin. Lab Interpretation Abnormal (test code = 34737-8) [facility] TylerMAGNESIUM2022-06-27 10:50:36 Test Item Value Reference Range Interpretation Comments MAGNESIUM (test code = 9148418590) 1.8 mg/dL 1.7-2.4 Lab Interpretation (test code = Normal 53434-4) [facility] TylerCOMP. METABOLIC PANEL (63397)2021-11-18 10:50:16 Test Item Value Reference Range Interpretation Comments NA (test code = 136 mmol/L 135-145 1724182596) K (test code = 4.8 mmol/L 3.5-5.0 4298485913) CL (test code = 98 mmol/L 98-108 0113387074) CO2 TOTAL (test code = 24 mmol/L 23-31 6114945486) AGAP (test code = 2-16 9621613471) BUN (test code = 33 mg/dL 7-23 H 3166385942) GLUCOSE (test code = 119 mg/dL 70-110 H 8797261853) CREATININE (test code = 1.35 mg/dL 0.60-1.25 H 1844332786) TOTAL BILI (test code = 0.6 mg/dL 0.1-1.6 8008787029) CALCIUM (test code = 9.6 mg/dL 8.6-10.6 7296403099) T PROTEIN (test code = 7.3 g/dL 6.3-8.2 1093970360) ALBUMIN (test code = 4.4 g/dL 3.5-5.0 5076576290) ALK PHOS (test code = 85 U/L 34-122 0039777637) ALTv (test code = 11 U/L 5-50 1742-6) AST(SGOT) (test code = 15 U/L 13-40 8551761856) eGFR (test code = mL/min/1.73m2 7488724042) LUZ (test code = LUZ) Association of Glomerular Filtration Rate (GFR) and Staging of Kidney Disease* + --+ --+ ------+| GFR (mL/min/1.73 m2) ?| With Kidney Damage ?| ?Without Kidney Damage+ --------+ --------+ +| ?>90 ?| ?Stage one ?| ? Normal ?+ ---+ ---+ -------+| ?60-89 ?| ?Stage two ?| ? Decreased GFR ? + --+ --+ ------+| ?30-59 ?| ?Stage three ?| ? Stage three ? + --+ --+ ------+| ?15-29 ?| ?Stage four ? | ? Stage four ?+ ---+ ---+ -------+| ?<15 (or dialysis) ? ?| ?Stage five ? | ? Stage five ?+ ---+ ---+ -------+ *Each stage assumes the associated GFR level has been in effect for at least three months. ?Stages 1 to 5, with or without kidney disease, indicate chronic kidney disease. Notes: Determination of stages one and two (with eGFR >59mL/min/1.73 m2) requires estimation of kidney damage for at least three months as defined by structural or functional abnormalities of the kidney, manifested by either:Pathological abnormalities or Markers of kidney damage (including abnormalities in the composition of the blood or urine or abnormalities in imaging tests). Lab Interpretation Abnormal (test code = 38454-9) [facility] TylerLIPASE2022-[facility] 10:50:16 Test Item Value Reference Range Interpretation Comments LIPASE (test code = 8953720789) 26 U/L 0-220 Lab Interpretation (test code = Normal 26435-5) [facility] TylerLactic Acid Whole [id number] 10:44:04 Test Item Value Reference Range Interpretation Comments LACTIC ACID (test code = 1.98 mmol/L 0.50-2.20 5211000820) Lab Interpretation (test code = Normal 02643-9) [facility] TylerCB WITH [id number] 10:38:32 Test Item Value Reference Range Interpretation Comments WBC (test code = See_Comment [Automated 6690-2) message] The sy stem which generated this result transmitted reference range : 4.20 - 10.70 10*3/?L. The reference range was not used to interpret this result as normal/abnormal . RBC (test code = See_Comment L [Automated 789-8) message] The sy stem which generated this result transmitted reference range : 4.26 - 5.52 10*6/?L. The reference range was not used to interpret this result as normal/abnormal . HGB (test code = 8.9 g/dL 12.2-16.4 L 718-7) HCT (test code = 29.1 % 38.4-49.3 L 4544-3) MCV (test code = 82.4 fL 81.7-95.6 787-2) MCH (test code = 25.2 pg 26.1-32.7 L 785-6) MCHC (test code = 30.6 g/dL 31.2-35.0 L 786-4) RDW-SD (test code = 52.0 fL 38.5-51.6 H 01981-8) RDW-CV (test code = 17.3 % 12.1-15.4 H 788-0) PLT (test code = See_Comment [Automated 777-3) message] The sy stem which generated this result transmitted reference range : 150 - 328 10*3/ ?L. The reference r stephanie was not used to interpret this result as normal/abnormal . MPV (test code = 9.6 fL 9.8-13.0 L 53945-7) NRBC/100 WBC (test See_Comment [Automat ed code = 7221897615) message] The system which generated this result transmitted reference range : 0.0 - 10.0 /100 WBCs. The refer ence range was not u sed to interpret th is result as normal/abnormal . NRBC x10^3 (test code <0.01 See_Comment [Auto mated = 1032278876) message] The s ystem which generated this result transmitted reference range : 10*3/?L. The reference range was not used to interpret this result as normal/abnormal . GRAN MAT (NEUT) % 55.3 % (test code = 770-8) IMM GRAN % (test code 0.50 % = 1237559656) LYMPH % (test code = 11.1 % 736-9) MONO % (test code = 15.9 % 5905-5) EOS % (test code = 16.2 % 713-8) BASO % (test code = 1.0 % 706-2) GRAN MAT x10^3(ANC) 3.35 10*3/uL 1.99-6.95 (test code = 2115935864) IMM GRAN x10^3 (test 0.03 10*3/uL 0.00-0.06 code = 0346918034) LYMPH x10^3 (test code 0.67 10*3/uL 1.09-3.23 L = 731-0) MONO x10^3 (test code 0.96 10*3/uL 0.36-1.02 = 742-7) EOS x10^3 (test code = 0.98 10*3/uL 0.06-0.53 H 711-2) BASO x10^3 (test code 0.06 10*3/uL 0.01-0.09 = 704-7) Lab Interpretation Abnormal (test code = 65192-9) [facility]IN[facility] 11:24:52 Test Item Value Reference Range Interpretation Comments DIGOXIN (test code = 0.8 ng/mL 0.8-1.6 Slight hemolysis 1993625499) LUZ (test code = LUZ) Arrythmias: ?1.5 - 2.0 ng/mLToxic Range: ? Greater than or equal to 2.4 ng/mL Lab Interpretation Normal (test code = 20846-0) [facility] TylerTROPONIN [id number] 11:14:07 Test Item Value Reference Interpretation Comments Range TROPONIN I (test 0.022 ng/mL See_Comment [Automated code = 4041281138) message] The system which generated this result transmitted reference range : <=0.034. The reference range was not used to interpret this result as normal/abnormal . LUZ (test code = Reference (Normal) LUZ) Range (defined by the 99th percentile reference limit): <= 0.034 ng/mL Note: Cardiac troponin begins to rise 3-4 hours after the onset of ischemia. Repeat in 4-6 hours if the sample was drawn within 3-4 hours of the onset of the symptom and found normal. Diagnosis of myocardial injury is made with acute changes in cTn concentrations with at least one serial sample above the 99th percentile upper reference limit (URL), taken together with the patient's clinical presentation. Biotin has been reported to cause a negative bias, interpret results relative to patient's use of biotin. Lab Interpretation Normal (test code = 10120-3) [facility] TylerComplete Metabolic [id number] 11:02:47 Test Item Value Reference Range Interpretation Comments NA (test code = 137 mmol/L 135-145 3100279786) K (test code = 5.1 mmol/L 3.5-5.0 H 8975385667) CL (test code = 101 mmol/L 98-108 5354480375) CO2 TOTAL (test code = 19 mmol/L 23-31 L 6087417783) AGAP (test code = 2-16 H 7334813970) BUN (test code = 31 mg/dL 7-23 H 6372869570) GLUCOSE (test code = 276 mg/dL 70-110 H 3521518635) CREATININE (test code = 1.11 mg/dL 0.60-1.25 7394933746) TOTAL BILI (test code = 1.2 mg/dL 0.1-1.1 H 4863780306) CALCIUM (test code = 9.3 mg/dL 8.6-10.6 1864282396) T PROTEIN (test code = 7.8 g/dL 6.3-8.2 6912354231) ALBUMIN (test code = 4.5 g/dL 3.5-5.0 5144640140) ALK PHOS (test code = 97 U/L 34-122 9528521436) ALTv (test code = 14 U/L 5-50 1742-6) AST(SGOT) (test code = 32 U/L 13-40 9782550584) eGFR (test code = mL/min/1.73m2 5456512332) LUZ (test code = LUZ) Association of Glomerular Filtration Rate (GFR) and Staging of Kidney Disease* + --+ --+ ------+| GFR (mL/min/1.73 m2) ?| With Kidney Damage ?| ?Without Kidney Damage+ --------+ --------+ +| ?>90 ?| ?Stage one ?| ? Normal ?+ ---+ ---+ -------+| ?60-89 ?| ?Stage two ?| ? Decreased GFR ? + --+ --+ ------+| ?30-59 ?| ?Stage three ?| ? Stage three ? + --+ --+ ------+| ?15-29 ?| ?Stage four ? | ? Stage four ?+ ---+ ---+ -------+| ?<15 (or dialysis) ? ?| ?Stage five ? | ? Stage five ?+ ---+ ---+ -------+ *Each stage assumes the associated GFR level has been in effect for at least three months. ?Stages 1 to 5, with or without kidney disease, indicate chronic kidney disease. Notes: Determination of stages one and two (with eGFR >59mL/min/1.73 m2) requires estimation of kidney damage for at least three months as defined by structural or functional abnormalities of the kidney, manifested by either:Pathological abnormalities or Markers of kidney damage (including abnormalities in the composition of the blood or urine or abnormalities in imaging tests). Lab Interpretation Abnormal (test code = 32428-8) [facility] TylerLipase, [id number] 11:02:26 Test Item Value Reference Range Interpretation Comments LIPASE (test code = 3350270794) 41 U/L 0-220 Lab Interpretation (test code = Normal 39458-9) [facility] TylerCBC with [id number] 10:38:45 Test Item Value Reference Range Interpretation Comments WBC (test code = See_Comment [Automated 6690-2) message] The sy stem which generated this result transmitted reference range : 4.20 - 10.70 10*3/?L. The reference range was not used to interpret this result as normal/abnormal . RBC (test code = See_Comment L [Automated 789-8) message] The sy stem which generated this result transmitted reference range : 4.26 - 5.52 10*6/?L. The reference range was not used to interpret this result as normal/abnormal . HGB (test code = 10.5 g/dL 12.2-16.4 L 718-7) HCT (test code = 34.5 % 38.4-49.3 L 4544-3) MCV (test code = 81.6 fL 81.7-95.6 L 787-2) MCH (test code = 24.8 pg 26.1-32.7 L 785-6) MCHC (test code = 30.4 g/dL 31.2-35.0 L 786-4) RDW-SD (test code = 46.9 fL 38.5-51.6 18281-3) RDW-CV (test code = 15.8 % 12.1-15.4 H 788-0) PLT (test code = See_Comment H [Automated 777-3) message] The sy stem which generated this result transmitted reference range : 150 - 328 10*3/ ?L. The reference r stephanie was not used to interpret this result as normal/abnormal . MPV (test code = 10.6 fL 9.8-13.0 32763-0) NRBC/100 WBC (test See_Comment [Automat ed code = 8343314148) message] The system which generated this result transmitted reference range : 0.0 - 10.0 /100 WBCs. The refer ence range was not u sed to interpret th is result as normal/abnormal . NRBC x10^3 (test code <0.01 See_Comment [Auto mated = 4390903031) message] The s ystem which generated this result transmitted reference range : 10*3/?L. The reference range was not used to interpret this result as normal/abnormal . GRAN MAT (NEUT) % 75.6 % (test code = 770-8) IMM GRAN % (test code 0.60 % = 3338157789) LYMPH % (test code = 13.2 % 736-9) MONO % (test code = 9.2 % 5905-5) EOS % (test code = 0.9 % 713-8) BASO % (test code = 0.5 % 706-2) GRAN MAT x10^3(ANC) 6.17 10*3/uL 1.99-6.95 (test code = 3345047414) IMM GRAN x10^3 (test 0.05 10*3/uL 0.00-0.06 code = 2218623966) LYMPH x10^3 (test code 1.08 10*3/uL 1.09-3.23 L = 731-0) MONO x10^3 (test code 0.75 10*3/uL 0.36-1.02 = 742-7) EOS x10^3 (test code = 0.07 10*3/uL 0.06-0.53 711-2) BASO x10^3 (test code 0.04 10*3/uL 0.01-0.09 = 704-7) Lab Interpretation Abnormal (test code = 96254-7) [facility] TylerPO[facility] GLU[facility] ([facility]OM[facility])2021-09-11 10:08:24 Test Item Value Reference Range Interpretation Comments POCT GLU (test code = 1293234047) 273 mg/dL 70-110 H Lab Interpretation (test code = Abnormal 85712-9) [facility] TylerTROPONIN [id number] 22:12:38 Test Item Value Reference Interpretation Comments Range TROPONIN I (test 0.012 ng/mL See_Comment [Automated code = 6775139786) message] The system which generated this result transmitted reference range : <=0.034. The reference range was not used to interpret this result as normal/abnormal . LUZ (test code = Reference (Normal) LUZ) Range (defined by the 99th percentile reference limit): <= 0.034 ng/mL Note: Cardiac troponin begins to rise 3-4 hours after the onset of ischemia. Repeat in 4-6 hours if the sample was drawn within 3-4 hours of the onset of the symptom and found normal. Diagnosis of myocardial injury is made with acute changes in cTn concentrations with at least one serial sample above the 99th percentile upper reference limit (URL), taken together with the patient's clinical presentation. Biotin has been reported to cause a negative bias, interpret results relative to patient's use of biotin. Lab Interpretation Normal (test code = 07564-9) [facility] TylerN-TERMINAL [id number] 22:09:20 Test Item Value Reference Range Interpretation Comments NT-proBNP (test code 2740 pg/mL See_Comment H [Autom ated = 7570726482) message] The system which generated this result transmitted reference range : <=450. The reference range was not used to interpret this result as normal/abnormal . LUZ (test code = LUZ) Biotin has been reported to cause a negative bias, interpret results relative to patient's use of biotin. Lab Interpretation Abnormal (test code = 99334-1) [facility] TylerDIGOXIN2022-03-03 22:03:39 Test Item Value Reference Range Interpretation Comments DIGOXIN (test code = 0.8 ng/mL 0.8-1.6 3944141894) LUZ (test code = LUZ) Arrythmias: ?1.5 - 2.0 ng/mLToxic Range: ? Greater than or equal to 2.4 ng/mL Lab Interpretation (test Normal code = 18411-4) [facility] TylerCOMP. METABOLIC PANEL (84408)2021-07-25 22:01:19 Test Item Value Reference Range Interpretation Comments NA (test code = 135 mmol/L 135-145 1759620884) K (test code = 4.5 mmol/L 3.5-5.0 2135501377) CL (test code = 97 mmol/L 98-108 L 7691982886) CO2 TOTAL (test code = 26 mmol/L 23-31 5188835164) AGAP (test code = 2-16 6155842552) BUN (test code = 24 mg/dL 7-23 H 2797271489) GLUCOSE (test code = 180 mg/dL 70-110 H 1427977995) CREATININE (test code = 1.12 mg/dL 0.60-1.25 7942149455) TOTAL BILI (test code = 0.9 mg/dL 0.1-1.5 4816839069) CALCIUM (test code = 9.0 mg/dL 8.6-10.6 6737271863) T PROTEIN (test code = 7.6 g/dL 6.3-8.2 4010540334) ALBUMIN (test code = 4.3 g/dL 3.5-5.0 2032223947) ALK PHOS (test code = 111 U/L 34-122 6951775774) ALTv (test code = 13 U/L 5-50 2-6) AST(SGOT) (test code = 16 U/L 13-40 6806164974) eGFR (test code = mL/min/1.73m2 0025888616) LUZ (test code = LUZ) Association of Glomerular Filtration Rate (GFR) and Staging of Kidney Disease* + --+ --+ ------+| GFR (mL/min/1.73 m2) ?| With Kidney Damage ?| ?Without Kidney Damage+ --------+ --------+ +| ?>90 ?| ?Stage one ?| ? Normal ?+ ---+ ---+ -------+| ?60-89 ?| ?Stage two ?| ? Decreased GFR ? + --+ --+ ------+| ?30-59 ?| ?Stage three ?| ? Stage three ? + --+ --+ ------+| ?15-29 ?| ?Stage four ? | ? Stage four ?+ ---+ ---+ -------+| ?<15 (or dialysis) ? ?| ?Stage five ? | ? Stage five ?+ ---+ ---+ -------+ *Each stage assumes the associated GFR level has been in effect for at least three months. ?Stages 1 to 5, with or without kidney disease, indicate chronic kidney disease. Notes: Determination of stages one and two (with eGFR >59mL/min/1.73 m2) requires estimation of kidney damage for at least three months as defined by structural or functional abnormalities of the kidney, manifested by either:Pathological abnormalities or Markers of kidney damage (including abnormalities in the composition of the blood or urine or abnormalities in imaging tests). Lab Interpretation Abnormal (test code = 73294-7) [facility] TylerMAGNESIUM2022-03-03 22:01:19 Test Item Value Reference Range Interpretation Comments MAGNESIUM (test code = 5372043300) 2.0 mg/dL 1.7-2.4 Lab Interpretation (test code = Normal 08622-9) [facility] TylerLIPASE2022-03-03 22:00:53 Test Item Value Reference Range Interpretation Comments LIPASE (test code = 1312231754) 38 U/L 0-220 Lab Interpretation (test code = Normal 21688-6) [facility] WITH [id number] 21:49:30 Test Item Value Reference Range Interpretation Comments WBC (test code = See_Comment [Automated 6690-2) message] The sy stem which generated this result transmitted reference range : 4.20 - 10.70 10*3/?L. The reference range was not used to interpret this result as normal/abnormal . RBC (test code = See_Comment L [Automated 789-8) message] The sy stem which generated this result transmitted reference range : 4.26 - 5.52 10*6/?L. The reference range was not used to interpret this result as normal/abnormal . HGB (test code = 10.4 g/dL 12.2-16.4 L 718-7) HCT (test code = 34.1 % 38.4-49.3 L 4544-3) MCV (test code = 84.4 fL 81.7-95.6 787-2) MCH (test code = 25.7 pg 26.1-32.7 L 785-6) MCHC (test code = 30.5 g/dL 31.2-35.0 L 786-4) RDW-SD (test code = 49.0 fL 38.5-51.6 76694-1) RDW-CV (test code = 15.9 % 12.1-15.4 H 788-0) PLT (test code = See_Comment H [Automated 777-3) message] The sy stem which generated this result transmitted reference range : 150 - 328 10*3/ ?L. The reference r stephanie was not used to interpret this result as normal/abnormal . MPV (test code = 10.1 fL 9.8-13.0 64779-9) NRBC/100 WBC (test See_Comment [Automat ed code = 7631139795) message] The system which generated this result transmitted reference range : 0.0 - 10.0 /100 WBCs. The refer ence range was not u sed to interpret th is result as normal/abnormal . NRBC x10^3 (test code <0.01 See_Comment [Auto mated = 5509752633) message] The s ystem which generated this result transmitted reference range : 10*3/?L. The reference range was not used to interpret this result as normal/abnormal . GRAN MAT (NEUT) % 75.3 % (test code = 770-8) IMM GRAN % (test code 0.50 % = 3309074794) LYMPH % (test code = 14.0 % 736-9) MONO % (test code = 8.2 % 5905-5) EOS % (test code = 1.2 % 713-8) BASO % (test code = 0.8 % 706-2) GRAN MAT x10^3(ANC) 5.49 10*3/uL 1.99-6.95 (test code = 2378593634) IMM GRAN x10^3 (test 0.04 10*3/uL 0.00-0.06 code = 3492585727) LYMPH x10^3 (test code 1.02 10*3/uL 1.09-3.23 L = 731-0) MONO x10^3 (test code 0.60 10*3/uL 0.36-1.02 = 742-7) EOS x10^3 (test code = 0.09 10*3/uL 0.06-0.53 711-2) BASO x10^3 (test code 0.06 10*3/uL 0.01-0.09 = 704-7) Lab Interpretation Abnormal (test code = 04619-9) [facility]21-[facility]-25 21:34:24 Test Item Value Reference Range Interpretation Comments POCT GLU (test code = 9658844243) 177 mg/dL 70-110 H Lab Interpretation (test code = Abnormal 91053-3) [facility] TylerTROPONIN [id number] 02:26:02 Test Item Value Reference Interpretation Comments Range TROPONIN I (test 0.014 ng/mL See_Comment [Automated code = 0449910958) message] The system which generated this result transmitted reference range : <=0.034. The reference range was not used to interpret this result as normal/abnormal . LUZ (test code = Reference (Normal) LUZ) Range (defined by the 99th percentile reference limit): <= 0.034 ng/mL Note: Cardiac troponin begins to rise 3-4 hours after the onset of ischemia. Repeat in 4-6 hours if the sample was drawn within 3-4 hours of the onset of the symptom and found normal. Diagnosis of myocardial injury is made with acute changes in cTn concentrations with at least one serial sample above the 99th percentile upper reference limit (URL), taken together with the patient's clinical presentation. Biotin has been reported to cause a negative bias, interpret results relative to patient's use of biotin. Lab Interpretation Normal (test code = 99916-6) [facility]. METABOLIC PANEL (37775)2021-07-13 02:14:42 Test Item Value Reference Range Interpretation Comments NA (test code = 136 mmol/L 135-145 8004178657) K (test code = 4.9 mmol/L 3.5-5.0 2018540877) CL (test code = 102 mmol/L 98-108 3214823637) CO2 TOTAL (test code = 25 mmol/L 23-31 3945884924) AGAP (test code = 2-16 6439344908) BUN (test code = 23 mg/dL 7-23 4702444186) GLUCOSE (test code = 209 mg/dL 70-110 H 5679697394) CREATININE (test code = 0.95 mg/dL 0.60-1.25 2846173103) TOTAL BILI (test code = 1.3 mg/dL 0.1-1.1 H 4050112438) CALCIUM (test code = 8.9 mg/dL 8.6-10.6 8675725666) T PROTEIN (test code = 7.9 g/dL 6.3-8.2 5513169602) ALBUMIN (test code = 4.5 g/dL 3.5-5.0 6124665768) ALK PHOS (test code = 115 U/L 34-122 7961984315) ALTv (test code = 13 U/L 5-50 1742-6) AST(SGOT) (test code = 17 U/L 13-40 0610528447) eGFR (test code = mL/min/1.73m2 6517488527) LUZ (test code = LUZ) Association of Glomerular Filtration Rate (GFR) and Staging of Kidney Disease* + --+ --+ ------+| GFR (mL/min/1.73 m2) ?| With Kidney Damage ?| ?Without Kidney Damage+ --------+ --------+ +| ?>90 ?| ?Stage one ?| ? Normal ?+ ---+ ---+ -------+| ?60-89 ?| ?Stage two ?| ? Decreased GFR ? + --+ --+ ------+| ?30-59 ?| ?Stage three ?| ? Stage three ? + --+ --+ ------+| ?15-29 ?| ?Stage four ? | ? Stage four ?+ ---+ ---+ -------+| ?<15 (or dialysis) ? ?| ?Stage five ? | ? Stage five ?+ ---+ ---+ -------+ *Each stage assumes the associated GFR level has been in effect for at least three months. ?Stages 1 to 5, with or without kidney disease, indicate chronic kidney disease. Notes: Determination of stages one and two (with eGFR >59mL/min/1.73 m2) requires estimation of kidney damage for at least three months as defined by structural or functional abnormalities of the kidney, manifested by either:Pathological abnormalities or Markers of kidney damage (including abnormalities in the composition of the blood or urine or abnormalities in imaging tests). Lab Interpretation Abnormal (test code = 23846-8) [facility]14[facility]01 Test Item Value Reference Range Interpretation Comments LIPASE (test code = 5088021774) 32 U/L 0-220 Lab Interpretation (test code = Normal 80774-7) [facility] WITH [id number] 02:10:20 Test Item Value Reference Range Interpretation Comments WBC (test code = See_Comment [Automated 6690-2) message] The sy stem which generated this result transmitted reference range : 4.20 - 10.70 10*3/?L. The reference range was not used to interpret this result as normal/abnormal . RBC (test code = See_Comment L [Automated 789-8) message] The sy stem which generated this result transmitted reference range : 4.26 - 5.52 10*6/?L. The reference range was not used to interpret this result as normal/abnormal . HGB (test code = 10.0 g/dL 12.2-16.4 L 718-7) HCT (test code = 32.4 % 38.4-49.3 L 4544-3) MCV (test code = 85.5 fL 81.7-95.6 787-2) MCH (test code = 26.4 pg 26.1-32.7 785-6) MCHC (test code = 30.9 g/dL 31.2-35.0 L 786-4) RDW-SD (test code = 50.7 fL 38.5-51.6 63316-8) RDW-CV (test code = 16.4 % 12.1-15.4 H 788-0) PLT (test code = See_Comment H [Automated 777-3) message] The sy stem which generated this result transmitted reference range : 150 - 328 10*3/ ?L. The reference r stephanie was not used to interpret this result as normal/abnormal . MPV (test code = 10.6 fL 9.8-13.0 74151-2) NRBC/100 WBC (test See_Comment [Automat ed code = 1409056846) message] The system which generated this result transmitted reference range : 0.0 - 10.0 /100 WBCs. The refer ence range was not u sed to interpret th is result as normal/abnormal . NRBC x10^3 (test code <0.01 See_Comment [Auto mated = 3837433493) message] The s ystem which generated this result transmitted reference range : 10*3/?L. The reference range was not used to interpret this result as normal/abnormal . GRAN MAT (NEUT) % 77.0 % (test code = 770-8) IMM GRAN % (test code 0.80 % = 4539531747) LYMPH % (test code = 10.6 % 736-9) MONO % (test code = 9.7 % 5905-5) EOS % (test code = 1.2 % 713-8) BASO % (test code = 0.7 % 706-2) GRAN MAT x10^3(ANC) 5.86 10*3/uL 1.99-6.95 (test code = 7847738595) IMM GRAN x10^3 (test 0.06 10*3/uL 0.00-0.06 code = 8042067431) LYMPH x10^3 (test code 0.81 10*3/uL 1.09-3.23 L = 731-0) MONO x10^3 (test code 0.74 10*3/uL 0.36-1.02 = 742-7) EOS x10^3 (test code = 0.09 10*3/uL 0.06-0.53 711-2) BASO x10^3 (test code 0.05 10*3/uL 0.01-0.09 = 704-7) Lab Interpretation Abnormal (test code = 30064-9) [facility] 21:45:11 Test Item Value Reference Range Interpretation Comments POCT GLU (test code = 8993437715) 220 mg/dL 70-110 H Lab Interpretation (test code = Abnormal 17339-7) [facility] TylerTROPONIN [id number] 18:34:03 Test Item Value Reference Interpretation Comments Range TROPONIN I (test 0.016 ng/mL See_Comment [Automated code = 8845387253) message] The system which generated this result transmitted reference range : <=0.034. The reference range was not used to interpret this result as normal/abnormal . LUZ (test code = Reference (Normal) LUZ) Range (defined by the 99th percentile reference limit): <= 0.034 ng/mL Note: Cardiac troponin begins to rise 3-4 hours after the onset of ischemia. Repeat in 4-6 hours if the sample was drawn within 3-4 hours of the onset of the symptom and found normal. Diagnosis of myocardial injury is made with acute changes in cTn concentrations with at least one serial sample above the 99th percentile upper reference limit (URL), taken together with the patient's clinical presentation. Biotin has been reported to cause a negative bias, interpret results relative to patient's use of biotin. Lab Interpretation Normal (test code = 73793-1) [facility]21-02-26 16:33:16 Test Item Value Reference Range Interpretation Comments POCT GLU (test code = 0867510289) 169 mg/dL 70-110 H Lab Interpretation (test code = Abnormal 82785-6) [facility] TylerTHYROID STIMULATING [id number] 14:20:21 Test Item Value Reference Range Interpretation Comments TSH (test code = See_Comment [Automated message] 3631128622) The system [employer] generated this result transmitted ref erence range: 0.45 - 4 .70 mIU/L. The refe rence range was not u sed to interpret this result as normal/abnor mal. Lab Interpretation (test Normal code = 76878-5) [facility]TROPONIN [id number] 14:01:59 Test Item Value Reference Interpretation Comments Range TROPONIN I (test 0.023 ng/mL See_Comment [Automated code = 4611697464) message] The system which generated this result transmitted reference range : <=0.034. The reference range was not used to interpret this result as normal/abnormal . LUZ (test code = Reference (Normal) LUZ) Range (defined by the 99th percentile reference limit): <= 0.034 ng/mL Note: Cardiac troponin begins to rise 3-4 hours after the onset of ischemia. Repeat in 4-6 hours if the sample was drawn within 3-4 hours of the onset of the symptom and found normal. Diagnosis of myocardial injury is made with acute changes in cTn concentrations with at least one serial sample above the 99th percentile upper reference limit (URL), taken together with the patient's clinical presentation. Biotin has been reported to cause a negative bias, interpret results relative to patient's use of biotin. Lab Interpretation Normal (test code = 16272-0) [facility] TylerN-TERMINAL [id number] 13:58:56 Test Item Value Reference Range Interpretation Comments NT-proBNP (test code 1100 pg/mL See_Comment H [Autom ated = 0318213497) message] The system which generated this result transmitted reference range : <=450. The reference range was not used to interpret this result as normal/abnormal . LUZ (test code = LUZ) Biotin has been reported to cause a negative bias, interpret results relative to patient's use of biotin. Lab Interpretation Abnormal (test code = 05717-5) [facility] TylerGlycosylated Hemoglobin (A1C)2021-02-26 13:27:52 Test Item Value Reference Range Interpretation Comments HGB A1C (test code = 8.1 % 4.0-5.7 H 4548-4) LUZ (test code = LUZ) Reference RangesNormal: <5.7%Prediabetes: 5.7 - 6.4%Diabetes: > 6.5% Lab Interpretation (test Abnormal code = 77585-0) [facility] GLUCOSE (AUTOMATED)2021-02-26 13:15:49 Test Item Value Reference Range Interpretation Comments POCT GLU (test code = 7928349567) 209 mg/dL 70-110 H Lab Interpretation (test code = Abnormal 67841-6) [facility] GLUCOSE (AUTOMATED)2021-02-26 13:15:49 Test Item Value Reference Range Interpretation Comments POCT GLU (test code = 1143786596) 111 mg/dL 70-110 H Lab Interpretation (test code = Abnormal 27754-2) [facility] TylerMagnesium [id number] 11:27:09 Test Item Value Reference Range Interpretation Comments MAGNESIUM (test code = 5504307863) 1.7 mg/dL 1.7-2.4 Lab Interpretation (test code = Normal 44293-2) [facility] (NA, K, CL, CO2, GLUCOSE, BUN, CREATININE, CA)2021-02-26 11:26:44 Test Item Value Reference Range Interpretation Comments NA (test code = 137 mmol/L 135-145 9183977529) K (test code = 5.3 mmol/L 3.5-5.0 H 7133335842) CL (test code = 101 mmol/L 98-108 8594581560) CO2 TOTAL (test code = 25 mmol/L 23-31 8245180831) AGAP (test code = 2-16 0455330694) BUN (test code = 37 mg/dL 7-23 H 7512884298) GLUCOSE (test code = 153 mg/dL 70-110 H 8810036917) CREATININE (test code = 1.26 mg/dL 0.60-1.25 H 7401081004) CALCIUM (test code = 10.3 mg/dL 8.6-10.6 0230062331) eGFR (test code = mL/min/1.73m2 7998703632) LUZ (test code = LUZ) Association of Glomerular Filtration Rate (GFR) and Staging of Kidney Disease* + --+ --+ ------+| GFR (mL/min/1.73 m2) ?| With Kidney Damage ?| ?Without Kidney Damage+ --------+ --------+ +| ?>90 ?| ?Stage one ?| ? Normal ?+ ---+ ---+ -------+| ?60-89 ?| ?Stage two ?| ? Decreased GFR ? + --+ --+ ------+| ?30-59 ?| ?Stage three ?| ? Stage three ? + --+ --+ ------+| ?15-29 ?| ?Stage four ? | ? Stage four ?+ ---+ ---+ -------+| ?<15 (or dialysis) ? ?| ?Stage five ? | ? Stage five ?+ ---+ ---+ -------+ *Each stage assumes the associated GFR level has been in effect for at least three months. ?Stages 1 to 5, with or without kidney disease, indicate chronic kidney disease. Notes: Determination of stages one and two (with eGFR >59mL/min/1.73 m2) requires estimation of kidney damage for at least three months as defined by structural or functional abnormalities of the kidney, manifested by either:Pathological abnormalities or Markers of kidney damage (including abnormalities in the composition of the blood or urine or abnormalities in imaging tests). Lab Interpretation Abnormal (test code = 19078-8) [facility] with [id number] 10:10:58 Test Item Value Reference Range Interpretation Comments WBC (test code = See_Comment [Automated 6690-2) message] The sy stem which generated this result transmitted reference range : 4.20 - 10.70 10*3/?L. The reference range was not used to interpret this result as normal/abnormal . RBC (test code = See_Comment L [Automated 789-8) message] The sy stem which generated this result transmitted reference range : 4.26 - 5.52 10*6/?L. The reference range was not used to interpret this result as normal/abnormal . HGB (test code = 10.6 g/dL 12.2-16.4 L 718-7) HCT (test code = 33.3 % 38.4-49.3 L 4544-3) MCV (test code = 86.0 fL 81.7-95.6 787-2) MCH (test code = 27.4 pg 26.1-32.7 785-6) MCHC (test code = 31.8 g/dL 31.2-35.0 786-4) RDW-SD (test code = 50.6 fL 38.5-51.6 23994-2) RDW-CV (test code = 16.1 % 12.1-15.4 H 788-0) PLT (test code = See_Comment [Automated 777-3) message] The sy stem which generated this result transmitted reference range : 150 - 328 10*3/ ?L. The reference r stephanie was not used to interpret this result as normal/abnormal . MPV (test code = 10.2 fL 9.8-13.0 97201-0) NRBC/100 WBC (test See_Comment [Automat ed code = 9063352358) message] The system which generated this result transmitted reference range : 0.0 - 10.0 /100 WBCs. The refer ence range was not u sed to interpret th is result as normal/abnormal . NRBC x10^3 (test code <0.01 See_Comment [Auto mated = 6323600485) message] The s ystem which generated this result transmitted reference range : 10*3/?L. The reference range was not used to interpret this result as normal/abnormal . GRAN MAT (NEUT) % 58.5 % (test code = 770-8) IMM GRAN % (test code 0.40 % = 7153385564) LYMPH % (test code = 22.8 % 736-9) MONO % (test code = 13.4 % 5905-5) EOS % (test code = 4.2 % 713-8) BASO % (test code = 0.7 % 706-2) GRAN MAT x10^3(ANC) 4.20 10*3/uL 1.99-6.95 (test code = 9501885037) IMM GRAN x10^3 (test 0.03 10*3/uL 0.00-0.06 code = 1958380246) LYMPH x10^3 (test code 1.64 10*3/uL 1.09-3.23 = 731-0) MONO x10^3 (test code 0.96 10*3/uL 0.36-1.02 = 742-7) EOS x10^3 (test code = 0.30 10*3/uL 0.06-0.53 711-2) BASO x10^3 (test code 0.05 10*3/uL 0.01-0.09 = 704-7) Lab Interpretation Abnormal (test code = 10524-2) [facility] METABOLIC PANEL (NA, K, CL, CO2, GLUCOSE, BUN, CREATININE, CA)2021-02-26 06:10:25 Test Item Value Reference Range Interpretation Comments NA (test code = 135 mmol/L 135-145 1551840468) K (test code = 6.2 mmol/L 3.5-5.0 HH 5159635142) CL (test code = 102 mmol/L 98-108 0753817139) CO2 TOTAL (test code = 22 mmol/L 23-31 L 8082508255) AGAP (test code = 2-16 2297411501) BUN (test code = 39 mg/dL 7-23 H 9354712755) GLUCOSE (test code = 157 mg/dL 70-110 H 9224886672) CREATININE (test code = 1.17 mg/dL 0.60-1.25 6910317583) CALCIUM (test code = 10.1 mg/dL 8.6-10.6 0034265135) eGFR (test code = mL/min/1.73m2 9250051169) LUZ (test code = LUZ) Association of Glomerular Filtration Rate (GFR) and Staging of Kidney Disease* + --+ --+ ------+| GFR (mL/min/1.73 m2) ?| With Kidney Damage ?| ?Without Kidney Damage+ --------+ --------+ +| ?>90 ?| ?Stage one ?| ? Normal ?+ ---+ ---+ -------+| ?60-89 ?| ?Stage two ?| ? Decreased GFR ? + --+ --+ ------+| ?30-59 ?| ?Stage three ?| ? Stage three ? + --+ --+ ------+| ?15-29 ?| ?Stage four ? | ? Stage four ?+ ---+ ---+ -------+| ?<15 (or dialysis) ? ?| ?Stage five ? | ? Stage five ?+ ---+ ---+ -------+ *Each stage assumes the associated GFR level has been in effect for at least three months. ?Stages 1 to 5, with or without kidney disease, indicate chronic kidney disease. Notes: Determination of stages one and two (with eGFR >59mL/min/1.73 m2) requires estimation of kidney damage for at least three months as defined by structural or functional abnormalities of the kidney, manifested by either:Pathological abnormalities or Markers of kidney damage (including abnormalities in the composition of the blood or urine or abnormalities in imaging tests). Lab Interpretation Abnormal (test code = 06798-9) [facility]21-[facility]-26 00:45:44 Test Item Value Reference Range Interpretation Comments POCT GLU (test code = 0727146031) 183 mg/dL 70-110 H Lab Interpretation (test code = Abnormal 00985-1) [facility] TylerTROPONIN [id number] 19:47:30 Test Item Value Reference Interpretation Comments Range TROPONIN I (test 0.011 ng/mL See_Comment [Automated code = 4691642490) message] The system which generated this result transmitted reference range : <=0.034. The reference range was not used to interpret this result as normal/abnormal . LUZ (test code = Reference (Normal) LUZ) Range (defined by the 99th percentile reference limit): <= 0.034 ng/mL Note: Cardiac troponin begins to rise 3-4 hours after the onset of ischemia. Repeat in 4-6 hours if the sample was drawn within 3-4 hours of the onset of the symptom and found normal. Diagnosis of myocardial injury is made with acute changes in cTn concentrations with at least one serial sample above the 99th percentile upper reference limit (URL), taken together with the patient's clinical presentation. Biotin has been reported to cause a negative bias, interpret results relative to patient's use of biotin. Lab Interpretation Normal (test code = 07541-0) [facility] TylerACTIVATED PARTIAL THRMPLAS [id number] 19:44:49 Test Item Value Reference Range Interpretation Comments APTT Patient (test See_Comment [Automat ed code = 3173-2) message] The system which generated this result transmitted reference range : 23 - 38 Seconds . The reference range was not used to interpr et this result as normal/abnormal . LUZ (test code = LUZ) The [facility] patient population mean normal value for aPTT is 30 seconds. Lab Interpretation Normal (test code = 37725-9) [facility]TERMINAL [id number] 19:44:08 Test Item Value Reference Range Interpretation Comments NT-proBNP (test code 1030 pg/mL See_Comment H [Autom ated = 9921156643) message] The system which generated this result transmitted reference range : <=450. The reference range was not used to interpret this result as normal/abnormal . LUZ (test code = LUZ) Biotin has been reported to cause a negative bias, interpret results relative to patient's use of biotin. Lab Interpretation Abnormal (test code = 46321-0) [facility] TylerPROTHROMBIN TIME / [id number] 19:41:44 Test Item Value Reference Range Interpretation Comments PROTIME PATIENT (test See_Comment H [Auto mated message] code = 5964-2) The system wh ich generated this result transmitted ref erence range: 12.0 - 1 4.7 Seconds. The reference range was not used to int erpret this result as normal/abnormal . INR (test code = 6301-6) Nor mal INR <1.1; Warfarin Therap eutic range 2.0 to 3. 0 or 2.5 to 3.5, dep ending upon the indica tions. Lab Interpretation (test Abnormal code = 43353-1) [facility]2021-[facility]-04 19:38:22 Test Item Value Reference Range Interpretation Comments DIGOXIN (test code = 1.1 ng/mL 0.8-1.6 2264167272) LUZ (test code = LUZ) Arrythmias: ?1.5 - 2.0 ng/mLToxic Range: ? Greater than or equal to 2.4 ng/mL Lab Interpretation (test Normal code = 59633-5) [facility]MAGNESIUM2021-10-04 19:36:04 Test Item Value Reference Range Interpretation Comments MAGNESIUM (test code = 3070733651) 1.7 mg/dL 1.7-2.4 Lab Interpretation (test code = Normal 05374-1) [facility] TylerCOM. METABOLIC PANEL (73777)2021-02-25 19:36:03 Test Item Value Reference Range Interpretation Comments NA (test code = 136 mmol/L 135-145 7622488096) K (test code = 6.0 mmol/L 3.5-5.0 H 7264460484) CL (test code = 104 mmol/L 98-108 9232362040) CO2 TOTAL (test code = 22 mmol/L 23-31 L 8906594197) AGAP (test code = 2-16 1950769820) BUN (test code = 35 mg/dL 7-23 H 3396205776) GLUCOSE (test code = 183 mg/dL 70-110 H 0706713225) CREATININE (test code = 1.15 mg/dL 0.60-1.25 3533554066) TOTAL BILI (test code = 0.6 mg/dL 0.1-1.3 3672140332) CALCIUM (test code = 10.0 mg/dL 8.6-10.6 9630450403) T PROTEIN (test code = 7.6 g/dL 6.3-8.2 4777173425) ALBUMIN (test code = 4.4 g/dL 3.5-5.0 6314281257) ALK PHOS (test code = 99 U/L 34-122 2430553444) ALTv (test code = 16 U/L 5-50 1742-6) AST(SGOT) (test code = 19 U/L 13-40 8046937793) eGFR (test code = mL/min/1.73m2 7127862133) LUZ (test code = LUZ) Association of Glomerular Filtration Rate (GFR) and Staging of Kidney Disease* + --+ --+ ------+| GFR (mL/min/1.73 m2) ?| With Kidney Damage ?| ?Without Kidney Damage+ --------+ --------+ +| ?>90 ?| ?Stage one ?| ? Normal ?+ ---+ ---+ -------+| ?60-89 ?| ?Stage two ?| ? Decreased GFR ? + --+ --+ ------+| ?30-59 ?| ?Stage three ?| ? Stage three ? + --+ --+ ------+| ?15-29 ?| ?Stage four ? | ? Stage four ?+ ---+ ---+ -------+| ?<15 (or dialysis) ? ?| ?Stage five ? | ? Stage five ?+ ---+ ---+ -------+ *Each stage assumes the associated GFR level has been in effect for at least three months. ?Stages 1 to 5, with or without kidney disease, indicate chronic kidney disease. Notes: Determination of stages one and two (with eGFR >59mL/min/1.73 m2) requires estimation of kidney damage for at least three months as defined by structural or functional abnormalities of the kidney, manifested by either:Pathological abnormalities or Markers of kidney damage (including abnormalities in the composition of the blood or urine or abnormalities in imaging tests). Lab Interpretation Abnormal (test code = 85797-6) [facility] WITH [id number] 19:23:22 Test Item Value Reference Range Interpretation Comments WBC (test code = See_Comment [Automated 1485-2) message] The sy stem which generated this result transmitted reference range : 4.20 - 10.70 10*3/?L. The reference range was not used to interpret this result as normal/abnormal . RBC (test code = See_Comment L [Automated 639-8) message] The sy stem which generated this result transmitted reference range : 4.26 - 5.52 10*6/?L. The reference range was not used to interpret this result as normal/abnormal . HGB (test code = 11.1 g/dL 12.2-16.4 L 718-7) HCT (test code = 34.8 % 38.4-49.3 L 4544-3) MCV (test code = 87.0 fL 81.7-95.6 787-2) MCH (test code = 27.8 pg 26.1-32.7 785-6) MCHC (test code = 31.9 g/dL 31.2-35.0 786-4) RDW-SD (test code = 49.9 fL 38.5-51.6 24736-2) RDW-CV (test code = 15.9 % 12.1-15.4 H 788-0) PLT (test code = See_Comment [Automated 777-3) message] The sy stem which generated this result transmitted reference range : 150 - 328 10*3/ ?L. The reference r stephanie was not used to interpret this result as normal/abnormal . MPV (test code = 10.0 fL 9.8-13.0 50416-5) NRBC/100 WBC (test See_Comment [Automat ed code = 5428318813) message] The system which generated this result transmitted reference range : 0.0 - 10.0 /100 WBCs. The refer ence range was not u sed to interpret th is result as normal/abnormal . NRBC x10^3 (test code <0.01 See_Comment [Auto mated = 1651713217) message] The s ystem which generated this result transmitted reference range : 10*3/?L. The reference range was not used to interpret this result as normal/abnormal . GRAN MAT (NEUT) % 63.7 % (test code = 770-8) IMM GRAN % (test code 0.50 % = 9855345486) LYMPH % (test code = 21.1 % 736-9) MONO % (test code = 11.2 % 5905-5) EOS % (test code = 2.8 % 713-8) BASO % (test code = 0.7 % 706-2) GRAN MAT x10^3(ANC) 5.20 10*3/uL 1.99-6.95 (test code = 4285862722) IMM GRAN x10^3 (test 0.04 10*3/uL 0.00-0.06 code = 6405929968) LYMPH x10^3 (test code 1.73 10*3/uL 1.09-3.23 = 731-0) MONO x10^3 (test code 0.92 10*3/uL 0.36-1.02 = 742-7) EOS x10^3 (test code = 0.23 10*3/uL 0.06-0.53 711-2) BASO x10^3 (test code 0.06 10*3/uL 0.01-0.09 = 704-7) Lab Interpretation Abnormal (test code = 35577-0) [facility] Tyler[facility] WO [id number] 20:42:13 No acute intracranial hemorrhage or mass effect. No cervical fracture or subluxation. Degenerative changes. Partially visualized layering right-sided pleural effusion. 1.6 cm leftthyroid lobe nodule, correlate with thyroid ultrasound on a non emergentbasis if not already performed. Preliminary Report Dictated by Resident: Mani Kim ?MD Tk., have reviewed this study and agree withtheabove report.CT HEAD WITHOUT CONTRASTCT CERVICAL SPINE WITHOUT CONTRAST HISTORY: Head trauma, minor (Age >= 65y) COMPARISON: CT head and neck 05/07/2016 TECHNIQUE: Contiguous slices of the head and cervical spine were obtainedwithout contrast. Coronal and sagittal reformats were generated. FINDINGS: HEAD: No intracranial abnormality such as hemorrhage, edema, midline shift isappreciated. Left middle cranial fossa arachnoid cyst. 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 No hydrocephalus is seen. 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 Intracranial atherosclerosis. The calvarium and skull base are intact. ?The paranasal sinuses and mastoidair cells are clear. Right pseudophakia. CERVICAL SPINE: The cervical curvature is normal. The vertebral bodies are normal in heightand in normal alignment. No facet fracture or subluxation is present. Thecraniocervical junction is intact. The prevertebral soft tissues areunremarkable. Degenerative changes: Multilevel degenerative changes of the cervical spinewith endplate sclerosis, marginal osteophytosis, multilevel uncovertebralhypertrophy and OPLL. Multilevel neural foraminal narrowing. The visualized cervical soft tissues demonstrate a 1.6 cm left thyroid lobehypoattenuating nodule, unchanged from prior. Partially visualized layeringright sided pleural effusion. [facility], Radiant Results Inft User - 07/29/2020 2:43 PM CSTCT HEAD WITHOUT CONTRASTCT CERVICAL SPINE WITHOUT CONTRASTHISTORY: Head trauma, minor (Age >= 65y) COMPARISON: CT head and neck 05/07/2016TECHNIQUE: Contiguous slices of the head and cervical spine were obtainedwithout contrast. Coronaland sagittal reformats were generated.FINDINGS:HEAD:No intracranial abnormality such as hemorrhage, edema, midline shift isappreciated. Left middle cranial fossa arachnoid cyst. 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 Intracranial atherosclerosis. The calvarium and skull base are intact. The paranasal sinuses and mastoidair cells are clear. Right pseudophakia. CERVICAL SPINE:The cervical curvature is normal. The vertebral bodies are normal in heightand in normal alignment. No facet fracture or subluxation is present. Thecraniocervical junction is intact. The prevertebral soft tissues areunremarkable.Degenerative changes: Multilevel degenerative changes of the cervical spinewith endplate sclerosis, marginal osteophytosis, multilevel uncovertebralhypertrophy and OPLL. Multilevel neural foraminal narrowing. The visualized cervical soft tissues demonstrate a 1.6 cm left thyroid lobehypoattenuating nodule, unchanged from prior. Partially visu alized layeringright sided pleural effusion.IMPRESSIONNo acute intracranial hemorrhage or mass effect.No cervical fracture or subluxation. Degenerative changes. Partially visualized layering right-sided pleural effusion. 1.6 cm leftthyroid lobe nodule, correlate with thyroid ultrasound on a non emergen tbasis if not already performed. Preliminary Report Dictated by Resident: Mani Trammell MD., have reviewed this study and agree with theabove report.[facility] 2020-07-29 20:42:13 No acute intracranial hemorrhage or mass effect. No cervical fracture or subluxation. Degenerative changes. Partially visualized layering right-sided pleural effusion. 1.6 cm leftthyroid lobe nodule, correlate with thyroid ultrasound on a non emergentbasis if not already performed. Preliminary ReportDictated by Resident: Mani Kim ?MD Tk., have reviewed this study and agree withtheabove report.CT HEAD WITHOUT CONTRASTCT CERVICAL SPINE WITHOUT CONTRAST HISTORY: Head trauma, minor (Age >= 65y) COMPARISON: CT head and neck 05/07/2016 TECHNIQUE: Contiguous slices of the head and cervical spine were obtainedwithout contrast. Coronal and sagittal reformats were generated. FINDINGS: HEAD: No intracranial abnormality such as hemorrhage, edema, midline shift isappreciated. Left middle cranial fossa arachnoid cyst. 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 No hydrocephalus is seen. 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 Intracranial atherosclerosis. The calvarium and skull base are intact. ?The paranasal sinuses and mastoidair cells are clear. Right pseudophakia. CERVICAL SPINE: The cervical curvature is normal. The vertebral bodies are normal in heightand in normal alignment. No facet fracture or subluxation is present. Thecraniocervical junction is intact. The prevertebral soft tissues areunremarkable. Degenerative changes: Multilevel degenerative changes of the cervical spinewith endplate sclerosis, marginal osteophytosis, multilevel uncovertebralhypertrophy and OPLL. Multilevel neural foraminal narrowing. The visualized cervical soft tissues demonstrate a 1.6 cm left thyroid lobehypoattenuating nodule, unchanged from prior. Partially visualized layeringright sided pleural effusion. [facility], Radiant Results Inft User - 07/29/2020 2:43 PM CSTCT HEAD WITHOUT CONTRASTCT CERVICAL SPINE WITHOUT CONTRASTHISTORY: Head trauma, minor (Age >= 65y) COMPARISON: CT head and neck 05/07/2016TECHNIQUE: Contiguous slices of the head and cervical spine were obtainedwithout contrast. Coronaland sagittal reformats were generated.FINDINGS:HEAD:No intracranial abnormality such as hemorrhage, edema, midline shift isappreciated. Left middle cranial fossa arachnoid cyst. 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 Intracranial atherosclerosis. The calvarium and skull base are intact. The paranasal sinuses and mastoidair cells are clear. Right pseudophakia. CERVICAL SPINE:The cervical curvature is normal. The vertebral bodies are normal in heightand in normal alignment. No facet fracture or subluxation is present. Thecraniocervical junction is intact. The prevertebral soft tissues areunremarkable.Degenerative changes: Multilevel degenerative changes of the cervical spinewith endplate sclerosis, marginal osteophytosis, multilevel uncovertebralhypertrophy and OPLL. Multilevel neural foraminal narrowing. The visualized cervical soft tissues demonstrate a 1.6 cm left thyroid lobehypoattenuating nodule, unchanged from prior. Partially visu alized layeringright sided pleural effusion.IMPRESSIONNo acute intracranial hemorrhage or mass effect.No cervical fracture or subluxation. Degenerative changes. Partially visualized layering right-sided pleural effusion. 1.6 cm leftthyroid lobe nodule, correlate with thyroid ultrasound on a non emergen tbasis if not already performed. Preliminary Report Dictated by Resident: Mani Trammell MD., have reviewed this study and agree with theabove report.[facility] Pleural [id number] 00:48:00 Test Item Value Reference Range Interpretation Comments Case Report (test code Non-Gynecologic = [id number]) Cytology ?Case: [id number] ?Authorizing Provider: ?Garett Armas MD ? Collected: ? 06/28/2020 1351 ?Ordering Location: ? ? [facility] Medicine Surgery Unit ?Received: ?06/28/2020 1416 ?Specimen: ? ?PLEURAL, RIGHT, EFFUSION ? Final Diagnosis (test y2lljMLmXCQgk6cuEKMsgY code = 6257996065) FuZzEwMzNcZnRuYmpcdWMx WVizqwWwHVifo1WdQ5YcKo AwMFxhbnNpXGRlZmxhbmcx MIYkGJI1jkJdWTElSNpqJL EyAMlhBv6gaJMwoMndAuKo FECoq3iwywIWuxlhxSh9a4 lhPZNvIlQ6hWVlUJacY4yj aoSbeOOsLCHiNQm1tA26ET WfpG9rxGFuSYyyziXyXgE6 YGepBLPjXgE9LSUucBLeNZ PhY7lvGWDvKPivVSOxFVsn cTFcTLM5QOBqUHA4ABvoru ElgxU8DSyjrARmSyS7BPj3 z6wzcFnqKBQcZEP1m6crWW agegYvLG2ebt6meBo1f5ba czEgRGVmYXVsdCBQYXJhZ3 LdbHozFl2jcSt1fSguQmcb NVF9Bsz2CI4ydf56kxa2gJ ooZTRcexzfQcZ9IXqeHXOt lkkiSPk0JBhxXODmdEBpKU DmbUBcN7LbICrpPK7iovf0 XnEzEJ4aaxtfHPbwVVYqBK X0NpGpOOEdl2DhqliuSgMi kz3bsv45YSG8p0CxrFkbXN X9XTI0EoCuGc6rnAMbLZHw KZ3xZxEhyDRwEPOygc21aR mnPFkluhWloD9oLtXxYWBt gXHrUWCrMV3slAOcAHZzuT 5ucmxjXHBnYnJkcmhlYWRc pCwcqvGmTa8pgXbsQRZ7RV ymC4xgeV5xRxN1IBksR8fo dD7wSXc6EMgjqLU1KCDprQ 3pTX1jealwb5jhHST6QWot NBLnxsZ2yuSsFKXkiUZbI9 EzhV49IdMbeSEjW9VwqW5i GLqjTXKmusu7ZcYyOl0sbY GoyOU8GYyaBekvPTloFZYv bmNvbnRccGduZGVjXHBsYW luXHBsYWluXGYwXGZzMjRc uMtkmWmcmW0yAtTaYjGtMP ovBD6oALEhC0ylgBSxXJBe FTLuU1msHwGxhR7byUwgVI xmczIwXHBhclxwbGFpblxm MVxmczIwXGxhbmcxMDMzXG ysG5pnVbQhWHYhuHgiGRms w8LnFSEsZLMjPslkklIkMF NsWL6tXOOmLIklINDiUQMf MjBcbGFuZzEwMzNcaGljaF ryFRxwNtKtMJVoPKgiA9qf RpVfM7GjZVDaX2fazWGrpI A4L6qkhtEvYHCoFFpUQFCU LCBSSUdIVDsgVEhPUkFDRU 5URVNJUyBGTFVJRFxwbGFp blxmMVxmczIwXGxhbmcxMD CfQNusV6wtQpUwWFZswXud GNpxh6KrIPAiFCBgVxkamx IwXGIgOlxwYXIgICAgICAt GBYRIv9UBIApVY4GKTXBTI WVPE3YLGPKYK0RMF4JLDFY LC8BJJTMY4ajIDKjPEAbXN CpPT6JMZ1XTGyCHdXPPWYU RUxMUyBJREVOVElGSUVEIC nKJXXuJ49IWPGKLKsqtOdl fY8pVxGgCuEoHOrcJB5jKH NgV4zniMDdRSUiKDZnA6gi IzZbwY9ksPgvLTcysmMdMU QirpjjJIWooHmpbP5uTaPi AwFoCtrsSP9hTAEdC3pndH EnLDBdSJVoS2xpZgSqrP2y aFxmMVxjZjJcZnMyMiBGYX RfeXAaPYJgIUhiTJ3WAgJa RTDlLA6kPERpYPDfCCvzYw BBTVxwbGFpblxmMVxmczIw TUcnijgpUOPrXRpyA5kzHn WrCSLtjQgbLKjtn2YqAHIj RQUwTnMzwYXwOUWqac18EB X6UvRbo6X6RMDeWzHeHISk SR8fbEhxBROhTJ1hCJNwJ2 lriB5ntil1JwCdOGIeVqY7 FONaxpR0Kbp7TCImQPlrr6 ctj3BlZ6GflFAqmYg7q4ri WWSnBeD2gSMdZOawO1bcmm HkuXPtYJPbESl7rXrzYxXd BLZaj0ntxoWeVjJlGWWsLQ BcKZVtyXqbsaz2bB69BQLy kU7azKGvYVqrctIsLuN8EM jzIPGtYbY4LZWjcKQrGMCw U7ajRAJvORxtBOEwSBhjaP CgBHE1cBqfb2G3oRCicHNq sJkrOjAiVlExBSYJu2JiKO r9gBcnW7VxESDeKsC7tMWo KQOtSQujPWDzOVIhmtL6dE 81YVsvdtF3aIDht0Guj88q x036rV2xdXLaCFN3WWRdLK DkxLAtQHEjMXX3EAEtcNQt T1wuKXOzTR9qedmyHFlvYR trTADuhJT6PIAfqNJyA1Qs KYEbWDbwDJSwyof9KeDlYd 6kzWNchQifXHeil1uho5xu jWTdYfv1VGKoFtYeAndlSK raq4Cyo4fmVNTkcp2tNCM7 jEJdtKmbq4Z5vCMaAAOwwV FnkfRmECEvQkY5LDqaLK0f un43OXScTUP8ql9nmQBkoQ izbnBnbAOzIQpcI0YmJUDx e059XRRxQ8WdDUYij1S0zp TyUtAmNTFljSP7vcH3JQLg IFj6sIRquwT8fgXncYThI5 sroO5mMOIbYM5mhpkvr8mr ISxhUIsuFTWjtGX8pbP3UD SnaRLlB8NpdP7uRFQsSFcp TXHewts9MsXxQn8tiXIxbJ cyMFxzYmtwYWdlXHBnbmNv bnRccGduZGVjXHBsYWluXH BsYWluXGYwXGZzMjRccWxc gKobeO2uAuXkMhRtFRqzNT 3jCYTgC0aqzLDaHXWqGPJg I5qmFkMfxS8whSckBMagJc JcZnMyMFxwYXIgSSBoYXZl OEIggpKklhTlwYvavhJ1fO E5YQTjSPbfLCRlVIDzrLCj te3qhZngEKRrSE7zNZUppo WmJWuylWvaEZcvETT7GSRn bWVudHMgbWFkZSBieSByZX GtGUCilITrWLGpmQpnh1Th q9VuaEX1vW2zg0zso7RxPA FggAT7OH87jxX8cR6bQVPu GW0mQGFaKR4jkLAjxLQrKV Aub94enRpguaIdJSWdydUt XHBsYWluXGYyXGZzMjhcbG FuZzEwMzNcaGljaFxmMlxk DnTaHJJeJHosX0ynFfCkPo PdMBnkYSW7qU== Final Diagnosis Comment o7uczYGyJHUyfWWwKrDzJQ (test code = JsHKLnv4zmNSUcsMRnMrVw [id number]) MzNcZnRuYmpcdWMxXGRlZm Oub8agl359cEOji8wfIYYm SzR3hAHlWCFnvHXeO039SM PiINjyn0vcp2OnYPZxiMLs z0J9CVTYeshqfBk2bAdxL9 4ss3M7FcohE2mbPMIpAITl W2MrQN1nAXKeSgt1HXJ2HC U3WNVkZBJbO0BnLV6pLNDh hIPfVCv3i5xlsWboMIVrQP J9v1ojJNkthbYpII7lyg7h gFh8b7wovrAlLOOyMVTtmP NTDMWbW8JzaJiqYj9wpFo2 yBaoWvzgFFW2Gng5FX8eea 93yur2wUisNTXjzwqyIhC0 NOheJUMmomknDKs9FPrzLT AcfDEcUNYvpVXjC8OrBPat WF5pcwj8HzEvGP2tfupuOR ldFJCsBVP3OpXmAADln5Qc kotpNtElfl1pzy23MSI8h4 PavThiVYC9SNS4FxRiHq2p eYLoFRWaNR5vWgBtxTWoZZ Rsgi21fWrtKYlnvvEldI0a IaAwTHOrlAJfJQIlNK6tjY BzAKBapV1ehqdqRXLqMoFa honbYOBynIsryzTjSh7koJ jdPPF8TWvaQ4pgrA5pPoY6 DJftI2oexO5wTLy0TPuhtY Q2HCLunE4pGJ1uoquqh4sz XJV4AAgnQFCojrE7ncYaOA NxmTNcD9YflH42IlRzdAQl N7TcrR5qYPhcDGKxfbg4Bu HyRn6jpNTvvVP1KGfsErku YWdlXHBnbmNvbnRccGduZG VjXHBsYWluXHBsYWluXGYw CLGbDoWiwKrhdOkiaS3wId ApTvNkIOlsLO7lQWFaW3lh hUInOIOcZFNfQ4svTiTmnM 6xrEasPZuhnmQgKKA7nP4h dAqcAQC5HM8ykhQ8cM1kGY Vjc6ztUKMhTSQ4vTXjVB5u y416gNPsfYQpPRKwnNgvLN EjrJ0ywY1qtSKojpwvhFhx hRemO8t3XEArVA7bBL1iuC lnbmFudCBjZWxscyBhcmUg eSNrowVeCyirUC0npOMsqB == Clinical Information Clinical Hx: loculated (test code = right pleural effusion 8375542533) with lung nodules. could be infectoius but also could be malignancy Gross Description (test a0tovBHoZEQysVQqIoXtAA code = 0984879212) GuRFZkj8xjFNBzmFDcBvWc MzNcZnRuYmpcdWMxXGRlZm Wzq4xzj403cYBgz5toXNKz GiY6jQIgSNXnzSZeF013t7 hru6kxsjQlbDC1PINoCPE0 BJxrnrHlktP9XQkbhIWnOo V3RZfnibVeLHihlwEoasSn Dgz3PBAnK792QOC6yPmem2 rsYJC9LMViTWWkViSlOv2d vEOuL822IWEcNGQEPHDklA r9IWJkzfKzuqZamRTFm536 Q573z6qpPNEtwdEhnNqRju jxa6ooJ015EMXadKCkhfHp RyIiQKNkzETcfCV9OMFzLE 2xhgedSCN1EIdoHIYcaoLb DUDlwEApI9Q2DzIxdXTlN0 PvVXhgMCNwyhi6JnMnFs4g uFTbuLW6GGtsn5ret7yisZ FfUyg7IPDdWwIyDkxrNQoi y5Kco9brKWPxje6sVGG7eS VvkTxsp5F2xOFuCGJcdNNx htKoRGDwHoT1DSveHI5kki 38PWRcTQS0sc1jrSOvlSld jsJrfQQcLViaE7YpBUWuo2 59XNLkL8KdSEEvu9Z6vjPm AcYjYXRuyIQ5zgS4MZEtCI k7kKCtnyK1jqXdvGCbP0tz kR5uQDbwCP9rbtsly7qnRR G1URfaEMXciPJ8dyeaHCdf ENNkLzR1kzZehHVtIQTljS uyBIjwg761OZL6RgGeLXJl m9RzQ3BtcBbbT00hwJljA0 2kNDNvgGazgC7jaAnvvC1i ZjBcZnMyNFxxbFxwbGFpbl xmMFxmczIwXGxhbmcxMDMz LCkgP9uoIcNbRXKexOtpKQ jlu8VwPOSmKQGuUrUhWWFn DQNBIPGWUnEsVXLHQ2yOQv COFF5HBHOFViWBN9qOCJOY VUlEXHBhciBSZWNlaXZlZC BqpwVwrYUccwE2EFGcB9Cw t1ObOK9dHXZxMur4yYDlUA BhciBQcmVwYXJlZCAyIHNs iXGnuiJhK1f8j3SswV8npT ZwjTDwPYBkj90rHlXuGYPp zHEar1wjo5jnPL5uASZePK SqCH2sL50lIY17SQF9KHix ZWQpXHBhcn0= Embedded Images (test code = 2672203088) [facility] GLUCOSE (AUTOMATED)2020-06-29 22:21:00 Test Item Value Reference Range Interpretation Comments POCT GLU (test code = 1453559288) 301 mg/dL 70-110 H Lab Interpretation (test code = Abnormal 30794-2) [facility] [id number] 18:22:00 Test Item Value Reference Range Interpretation Comments URINE CULTURE (test No aerobic growth (< code = 630-4) 1000 CFU/mL) [facility] GLUCOSE (AUTOMATED)2020-06-29 17:45:00 Test Item Value Reference Range Interpretation Comments POCT GLU (test code = 8992192646) 303 mg/dL 70-110 H Lab Interpretation (test code = Abnormal 02648-9) [id number] Test Item Value Reference Range Interpretation Comments TROPONIN I (test 0.025 ng/mL See_Comment [Automated code = 8374770150) message] The system which generated this result transmitted reference range : <=0.034. The reference range was not used to interpret this result as normal/abnormal . LUZ (test code = Equal or Less than LUZ) 0.034 ng/ml---Normal ?Note: Cardiac troponin begins to rise 3-4 hours after the onset of ischemia. Repeat in 4-6 hours if the sample was drawn within 3-4 hours of the onset of the symptom and found normal. Between 0.035 and 0.120 ng/mL--- Borderline. Questionable myocardial injury or necrosis ? ?Note: Serial measurement may be necessary to confirm or exclude the diagnosis of myocardial injury or necrosis; Clinical correlation (symptoms, EKGs, imaging studies, and others) required; Repeat in 4-6 hours if clinically indicated. ? Equal or Higher than 0.121 ng/mL---Abnormal. Myocardial Injury or Necrosis Likely ? Biotin has been reported to cause a negative bias, interpret results relative to patient's use of biotin. ? Lab Interpretation Normal (test code = 01608-2) [facility] [id number] 14:17:00 Test Item Value Reference Range Interpretation Comments NT-proBNP (test code 1220 pg/mL See_Comment H [Autom ated = 9040646158) message] The system which generated this result transmitted reference range : <=450. The reference range was not used to interpret this result as normal/abnormal . LUZ (test code = LUZ) Biotin has been reported to cause a negative bias, interpret results relative to patient's use of biotin. Lab Interpretation Abnormal (test code = 87164-5) [facility]. METABOLIC PANEL (84647)2020-06-29 14:08:00 Test Item Value Reference Range Interpretation Comments NA (test code = 135 mmol/L 135-145 2620868996) K (test code = 3.7 mmol/L 3.5-5 2337126129) CL (test code = 93 mmol/L 98-108 L 7325772219) CO2 TOTAL (test code = 31 mmol/L 23-31 4772336834) AGAP (test code = 2-16 1412035500) BUN (test code = 33 mg/dL 7-23 H 6860553127) GLUCOSE (test code = 281 mg/dL 70-110 H 7262425814) CREATININE (test code = 1.46 mg/dL 0.6-1.25 H 6017654004) TOTAL BILI (test code = 1.0 mg/dL 0.1-1.5 6316230265) CALCIUM (test code = 9.1 mg/dL 8.6-10.6 5395586061) T PROTEIN (test code = 7.0 g/dL 6.3-8.2 1767164505) ALBUMIN (test code = 3.9 g/dL 3.5-5 5205686179) ALK PHOS (test code = 65 U/L 34-122 8264877796) ALTv (test code = 9 U/L 5-50 1742-6) AST(SGOT) (test code = 17 U/L 13-40 6322517607) eGFR Calculation mL/min/1.73m2 (Non-) (test code = 4131848631) eGFR Calculation mL/min/1.73m2 () (test code = 2906259612) LUZ (test code = LUZ) Association of Glomerular Filtration Rate (GFR) and Staging of Kidney Disease* + --+ --+ ------+| GFR (mL/min/1.73 m2) ?| With Kidney Damage ?| ?Without Kidney Damage+ --------+ --------+ +| ?>90 ?| ?Stage one ?| ? Normal ?+ ---+ ---+ -------+| ?60-89 ?| ?Stage two ?| ? Decreased GFR ? + --+ --+ ------+| ?30-59 ?| ?Stage three ?| ? Stage three ? + --+ --+ ------+| ?15-29 ?| ?Stage four ? | ? Stage four ?+ ---+ ---+ -------+| ?<15 (or dialysis) ? ?| ?Stage five ? | ? Stage five ?+ ---+ ---+ -------+ *Each stage assumes the associated GFR level has been in effect for at least three months. ?Stages 1 to 5, with or without kidney disease, indicate chronic kidney disease. Notes: Determination of stages one and two (with eGFR >59mL/min/1.73 m2) requires estimation of kidney damage for at least three months as defined by structural or functional abnormalities of the kidney, manifested by either:Pathological abnormalities or Markers of kidney damage (including abnormalities in the composition of the blood or urine or abnormalities in imaging tests). Lab Interpretation Abnormal (test code = 61891-3) [facility] 14:08:00 Test Item Value Reference Range Interpretation Comments MAGNESIUM (test code = 2915385015) 1.7 mg/dL 1.7-2.4 Lab Interpretation (test code = Normal 47233-0) [facility]2021-02-05 14:08:00 Test Item Value Reference Range Interpretation Comments PHOSPHORUS (test code = 4237170209) 3.8 mg/dL 2.5-5 Lab Interpretation (test code = Normal 50062-3) [facility] [id number] 14:08:00 Test Item Value Reference Range Interpretation Comments URIC ACID (test code = 5490301264) 12.1 mg/dL 3.6-8 H Lab Interpretation (test code = Abnormal 52900-8) [facility] WITH [id number] 12:42:00 Test Item Value Reference Range Interpretation Comments WBC (test code = See_Comment [Automated 1890-2) message] The sy stem which generated this result transmitted reference range : 4.20 - 10.70 10*3/?L. The reference range was not used to interpret this result as normal/abnormal . RBC (test code = See_Comment L [Automated 497-8) message] The sy stem which generated this result transmitted reference range : 4.26 - 5.52 10*6/?L. The reference range was not used to interpret this result as normal/abnormal . HGB (test code = 10.9 g/dL 12.2-16.4 L 718-7) HCT (test code = 34.7 % 38.4-49.3 L 4544-3) MCV (test code = 85.7 fL 81.7-95.6 787-2) MCH (test code = 26.9 pg 26.1-32.7 785-6) MCHC (test code = 31.4 g/dL 31.2-35 786-4) RDW-SD (test code = 50.2 fL 38.5-51.6 52827-6) RDW-CV (test code = 16.1 % 12.1-15.4 H 788-0) PLT (test code = See_Comment [Automated 777-3) message] The sy stem which generated this result transmitted reference range : 150 - 328 10*3/ ?L. The reference r stephanie was not used to interpret this result as normal/abnormal . MPV (test code = 11.2 fL 9.8-13 01665-4) NRBC/100 WBC (test See_Comment [Automat ed code = 0106822762) message] The system which generated this result transmitted reference range : 0.0 - 10.0 /100 WBCs. The refer ence range was not u sed to interpret th is result as normal/abnormal . NRBC x10^3 (test code <0.01 See_Comment [Auto mated = 5247924149) message] The s ystem which generated this result transmitted reference range : 10*3/?L. The reference range was not used to interpret this result as normal/abnormal . GRAN MAT (NEUT) % 66.0 % (test code = 770-8) IMM GRAN % (test code 0.50 % = 5405891176) LYMPH % (test code = 17.2 % 736-9) MONO % (test code = 13.4 % 5905-5) EOS % (test code = 2.1 % 713-8) BASO % (test code = 0.8 % 706-2) GRAN MAT x10^3(ANC) 5.22 10*3/uL 1.99-6.95 (test code = 6183137175) IMM GRAN x10^3 (test 0.04 10*3/uL 0-0.06 code = 3039968019) LYMPH x10^3 (test code 1.36 10*3/uL 1.09-3.23 = 731-0) MONO x10^3 (test code 1.06 10*3/uL 0.36-1.02 H = 742-7) EOS x10^3 (test code = 0.17 10*3/uL 0.06-0.53 711-2) BASO x10^3 (test code 0.06 10*3/uL 0.01-0.09 = 704-7) Lab Interpretation Abnormal (test code = 38591-6) [facility] GLUCOSE (AUTOMATED)2020-06-29 11:00:00 Test Item Value Reference Range Interpretation Comments POCT GLU (test code = 6561729977) 328 mg/dL 70-110 H Lab Interpretation (test code = Abnormal 44007-3) [facility] GLUCOSE (AUTOMATED)2020-06-29 11:00:00 Test Item Value Reference Range Interpretation Comments POCT GLU (test code = 9046694671) 212 mg/dL 70-110 H Lab Interpretation (test code = Abnormal 34163-9) [facility] [id number] 06:49:00 Test Item Value Reference Range Interpretation Comments TROPONIN I (test 0.021 ng/mL See_Comment [Automated code = 7372012231) message] The system which generated this result transmitted reference range : <=0.034. The reference range was not used to interpret this result as normal/abnormal . LUZ (test code = Equal or Less than LUZ) 0.034 ng/ml---Normal ?Note: Cardiac troponin begins to rise 3-4 hours after the onset of ischemia. Repeat in 4-6 hours if the sample was drawn within 3-4 hours of the onset of the symptom and found normal. Between 0.035 and 0.120 ng/mL--- Borderline. Questionable myocardial injury or necrosis ? ?Note: Serial measurement may be necessary to confirm or exclude the diagnosis of myocardial injury or necrosis; Clinical correlation (symptoms, EKGs, imaging studies, and others) required; Repeat in 4-6 hours if clinically indicated. ? Equal or Higher than 0.121 ng/mL---Abnormal. Myocardial Injury or Necrosis Likely ? Biotin has been reported to cause a negative bias, interpret results relative to patient's use of biotin. ? Lab Interpretation Normal (test code = 30217-9) [facility] [id number] 06:37:00 Test Item Value Reference Range Interpretation Comments LDH (test code = 7213644927) 302 U/L 300-600 Lab Interpretation (test code = Normal 86333-0) [facility] GL[facility] ([facility])2020-06-29 03:31:00 Test Item Value Reference Range Interpretation Comments POCT GLU (test code = 6528363465) 339 mg/dL 70-110 H Lab Interpretation (test code = Abnormal 83744-2) [facility] FLUID MANUAL [id number] 00:21:00 Test Item Value Reference Range Interpretation Comments BF SEGS (test code = 0 % 1746883052) BF LYMPHS (test code 62 % = 7463195680) BF REACTIVE LYMPHS % 2 % (test code = 7924482277) MACROPHAGE (test code 32 % = 1393344399) MESOS (test code = 3 % 8246617907) BF EOS (test code = 1 % 7436231624) #CELS CNTD (test code = 7604109975) LUZ (test code = LUZ) Reactive mesos and erythrophages seen, Pigment-laden macrophages observed. Iron stain required to confirm presence of hemosiderin. [facility] FLUID DIRECT [id number] 00:19:00 Test Item Value Reference Range Interpretation Comments BF COLOR Yellow (test code = 2397215446) BF WBC Count See_Comment [Automated (test code = message] The sy stem [id number]) which generated this result transmitted reference range : /?L. The refere nce range was not u sed to interpret th is result as normal/abnormal . BF RBC Count See_Comment [Automated (test code = message] The sy stem [id number]) which generated this result transmitted reference range : /?L. The refere nce range was not u sed to interpret th is result as normal/abnormal . LUZ (test The reference range code = LUZ) and other method performance specifications have not been established for this body fluid. ?The test results must be integrated into the clinical context for interpretation. [facility] TylerAm[facility] Body [id number] 00:04:00 Test Item Value Reference Range Interpretation Comments AMYLASE BF (test <30 U/L code = 5647724095) UNSPUN BODY Yellow FLUID COLOR (test code = 9310871830) UNSPUN BODY Slightly Cloudy FLUID CLARITY (test code = 0234763739) SPUN BODY FLUID Yellow COLOR (test code = 0599824285) SPUN BODY FLUID Clear CLARITY (test code = 1409426044) Sediment (test The sediment code = volume is <0.0 4339775153) mLs of the total fluid volume of 2mL and its color is white and red. LUZ (test code = Test developed and LUZ) characteristics determined by [facility]. [facility] TylerGlucose Body [id number] 00:04:00 Test Item Value Reference Range Interpretation Comments GLUCOSE BF (test 291 mg/dL code = 0569780532) UNSPUN BODY Yellow FLUID COLOR (test code = 6413282152) UNSPUN BODY Slightly Cloudy FLUID CLARITY (test code = 1594680718) SPUN BODY FLUID Yellow COLOR (test code = 1802567110) SPUN BODY FLUID Clear CLARITY (test code = 1252254289) Sediment (test The sediment code = volume is <0.1 2312339011) mLs of the total fluid volume of 2mL and its color is white and red. LUZ (test code = Test developed and LUZ) characteristics determined by [facility]. [facility] TylerTotal Protein Body [id number] 00:04:00 Test Item Value Reference Range Interpretation Comments T.PROT BF (test 3600.0 mg/dL code = 2010095599) UNSPUN BODY Yellow FLUID COLOR (test code = 2819272949) UNSPUN BODY Slightly Cloudy FLUID CLARITY (test code = 3902936006) SPUN BODY FLUID Yellow COLOR (test code = 8358508995) SPUN BODY FLUID Clear CLARITY (test code = 4370778713) Sediment (test The sediment code = volume is <0.6 6559806824) mLs of the total fluid volume of 2mL and its color is white and red. LUZ (test code = Test developed and LUZ) characteristics determined by [facility]. [facility] TylerLDH TOTAL BODY [id number] 00:04:00 Test Item Value Reference Range Interpretation Comments LDH BF (test 295 U/L code = 8733904205) UNSPUN BODY Yellow FLUID COLOR (test code = 0697770881) UNSPUN BODY Slightly Cloudy FLUID CLARITY (test code = 6918148963) SPUN BODY FLUID Yellow COLOR (test code = 2354953444) SPUN BODY FLUID Clear CLARITY (test code = 0767369014) Sediment (test The sediment code = volume is <0.4 4167775519) mLs of the total fluid volume of 2mL and its color is white and red. LUZ (test code = Test developed and LUZ) characteristics determined by [facility]. [facility] TylerPH, Body [id number] 23:49:00 Test Item Value Reference Range Interpretation Comments PH BF (test code = 6185928042) UNSPUN BODY FLUID COLOR Yellow (test code = 7609719457) UNSPUN BODY FLUID Cloudy CLARITY (test code = 9786996586) SPUN BODY FLUID COLOR Yellow (test code = 4248890847) SPUN BODY FLUID CLARITY Clear (test code = 3388667573) Sediment (test code = The se diment volume is 7339102551) <0.1 mLs of the total fluid volume of 1.5mL and its color i s white. [facility]2020-06-28 22:56:00 Test Item Value Reference Range Interpretation Comments POCT GLU (test code = 5328720178) 345 mg/dL 70-110 H Lab Interpretation (test code = Abnormal 22433-3) [facility] TylerTROPONIN [id number] 21:14:00 Test Item Value Reference Range Interpretation Comments TROPONIN I (test 0.016 ng/mL See_Comment [Automated code = 2379030657) message] The system which generated this result transmitted reference range : <=0.034. The reference range was not used to interpret this result as normal/abnormal . LUZ (test code = Equal or Less than LUZ) 0.034 ng/ml---Normal ?Note: Cardiac troponin begins to rise 3-4 hours after the onset of ischemia. Repeat in 4-6 hours if the sample was drawn within 3-4 hours of the onset of the symptom and found normal. Between 0.035 and 0.120 ng/mL--- Borderline. Questionable myocardial injury or necrosis ? ?Note: Serial measurement may be necessary to confirm or exclude the diagnosis of myocardial injury or necrosis; Clinical correlation (symptoms, EKGs, imaging studies, and others) required; Repeat in 4-6 hours if clinically indicated. ? Equal or Higher than 0.121 ng/mL---Abnormal. Myocardial Injury or Necrosis Likely ? Biotin has been reported to cause a negative bias, interpret results relative to patient's use of biotin. ? Lab Interpretation Normal (test code = 53245-8) [facility] TylerVITAMIN B12, [id number] 20:47:00 Test Item Value Reference Range Interpretation Comments VIT B12 (test code = 233 pg/mL 240-930 L [id number]) LUZ (test code = LUZ) Biotin has been reported to cause a positive bias, interpret results relative to patient's use of biotin. Lab Interpretation (test Abnormal code = 22694-3) [facility] TylerLEGIONELLA URINARY ANTIGEN [id number] 20:03:00 Test Item Value Reference Range Interpretation Comments Legionella Urinary Negative Negative Antigen (test code = 2803922225) LUZ (test code = LUZ) Negative for L. pneumophilia serogroup I antigen in urine suggesting no recent or current infection. Infection due to Legionella cannot be ruled out since other serogroups and species may cause disease. Furthermore, antigens may not be present in urine during early stage of infection, or the level of antigen present in urine may be below the detection limit of the test. Lab Interpretation (test Normal code = 63138-4) [facility] TylerPNEUMOCOCCAL [id number] 20:03:00 Test Item Value Reference Range Interpretation Comments S. pneumoniae antigen (test code = Negative Negative 9889532654) Lab Interpretation (test code = Normal 99727-0) [facility] TylerIR THORACENTESIS WITH [id number] 19:52:481. ?Successful ultrasound-guided thoracentesis with removal of ?1300 ?ccpleural effusion from the right hemithorax. Several samples obtained andsent to the pathology laboratory for additional testing.2. ?At the completion of the examination, patient complained of midlinechest pain like he was having heart attack. Chest x-ray was done veryquickly and the hospitalist was contacted immediately and was informed ofthe patient's complaints. Patient was transferred to the floor in stablecondition. Study: Ultrasound guided right thoracentesis. ? Technique: Informed consent was obtained from the patient. ? Patient was placed in the upright position and under sonographic evaluationan appropriate site for access to the pleural effusion was obtained. ? The soft tissues overlying the pleural effusion was prepped and draped in asterile manner. ?Local anesthesia was administered with 1% lidocaine. Under ultrasound guidance catheter was introduced into the pleuraleffusion. Findings:1300 cc of slightly dark yellow color fluid was removed from the rightpleural space. [facility], Radiant Results Inft User - 11:53 PM CSTStudy: Ultrasound guided right thoracentesis. Technique: Informed consent was obtained from the patient. Patient was placed in the upright position and under sonographic evaluationan appropriate site for access to the pleural effusion was obtained. The soft tissues overlying the pleural effusion was prepped and draped in asterile manner. Local anesthesia was administered with 1% lidocaine.Under ultrasound guidance catheter was introduced into the pleuraleffusion.Findings:1300 cc of slightly dark yellow color fluid was removed from the rightpleural space.IMPRESSION1. Successful ultrasound- guided thoracentesis with removal of 1300 ccpleural effusion from the right hemithorax. Several samples obtained andsent to the pathology laboratory for additional testing.2. At the completion of the examination, patient complained of midlinechest pain like he was having heart attack. Chest x-ray wasdone veryquickly and the hospitalist was contacted immediately and was informed ofthe patient's complaints. Patient was transferred to the floor in stablecondition. [facility] TylerXR CHEST 1 [id number] 19:47:44HISTORY: S/P right thoracentesis. FINDINGS: AP upright view of the chest is obtained and compared with06/27/2020 study. Right-sided thoracentesis is noted. Small amount ofresidual pleural effusion suspected, some of which could be loculated.Cardiomegaly noted. No pneumothorax. CONCLUSIONS: S/P right thor acentesis. Small residual effusion noted whichcould be loculated. No pneumothorax. [facility], Radiant Results Inft User - 06/28/2020 1:48 PM CSTHISTORY: S/P right thoracentesis.FINDINGS: AP upright view of the chest is obtained and compared with06/27/2020 study. Right-sided thoracentesis is noted. Small amount ofresidual pleural effusion suspected, some of which could be loculated.Cardiomegaly noted. No pneumothorax.CONCLUSIONS: S/P right thoracentesis. Small residual effusion noted whichcould be loculated. No pneumothorax.[facility] TylerPROCALCITONIN2021-02-04 18:42:00 Test Item Value Reference Range Interpretation Comments Procalcitonin (test 0.03 ng/mL <0.07 code = 9842831393) LUZ (test code = LUZ) INTERPRETATION OF PROCALCITONIN RESULTS IN ADULTS >= 18 YEARS OF AGE Initiation and discontinuation of antibiotics on patients with suspected or confirmed Lower Respiratory Tract Infection in Adults >= 18 years of age. + +-------- --------+ + -----+|Procalcitonin |Interpretation ?|Antibiotic ? ? |Considerations ? |ng/mL ? | ?|recommendation | ? + +-------- --------+ + -----+| <0.1 ? | Bacterial ? ? ?| Strongly ? ? ?| ? | ?| infection very | discouraged ? | Overruling: ? | ?| unlikely ? ? ? | ? | ? Clinically unstable ? ? ? + +-------- --------+ + ? High risk for adverse ? ? | <0.25 ?| Bacterial ? ? ?| Discouraged ? | ? outcome ? | ?| infection ? ? ?| ? | ? SEE IMPORTANT NOTE ?| ?| unlikely ? ? ? | ? | ? + +-------- --------+ + -----+| >=0.25 ? ? ? | Bacterial ? ? ?| Encouraged ? ?| ? | ?| infection ? ? ?| ? | ? | ?| likely ? | ? | Consider treatment failure ?+ +------- ---------+ -+ if levels does not decrease | >0.5 ? | Bacterial ? ? ?| Strongly ? ? ?| appropriately ? | ?| infection very | encouraged ? ?| ? | ?| likely ? | ? | ? + +-------- --------+ + -----+ Discontinuation of antibiotics in high-acuity patients with suspected or confirmed sepsis in Adults >= 18 years of age. + +-------- --------+ + -----+|Procalcitonin |Interpretation ?|Antibiotic ? ? |Considerations ? |ng/mL ? | ?|recommendation | ? + +-------- --------+ + -----+| <0.25 ?| Bacterial ? ? ?| Strongly ? ? ?| ? | ?| infection very | discouraged ? | Overruling: ? | ?| unlikely ? ? ? | ? | ? Clinically unstable ? ? ? + +-------- --------+ + ? High risk for adverse ? ? | <0.5 or drop | Bacterial ? ? ?| Discouraged ? | ? outcome ? | >80% from ? ?| infection ? ? ?| ? | ? SEE IMPORTANT NOTE ?| highest PCT ?| unlikely ? ? ? | ? | ? | level ?| ?| ? | ? + +-------- --------+ + -----+| >=0.5 ?| Bacterial ? ? ?| Encouraged ? ?| ? | ?| infection ? ? ?| ? | ? | ?| likely ? | ? | Consider treatment failure ?+ +------- ---------+ -+ if levels does not decrease | >1.0 ? | Bacterial ? ? ?| Strongly ? ? ?| appropriately ? | ?| infection very | encouraged ? ?| ? | ?| likely ? | ? | ? + +-------- --------+ + -----+ Percentage of drop of Procalcitonin calculation for Discontinuation of antibiotics in high-acuity patients with suspected or confirmed sepsis in Adults >= 18 years of age. ? Procalcitonin highest{}-Procalcitonin current{}Delta Procalcitonin = x100% ? Procalcitonin current {} IMPORTANT NOTE: Procalcitonin may be elevated without bacterial infection by physiologic stress related to trauma, martinez, chronic dialysis, metastatic cancer, surgery in the past seven days, malaria, some fungal infections, and some forms of vasculitis. The interpretation algorithm may not apply to patients with immunosuppression (equivalent of >10 mg of prednisone daily), HIV with CD4 cell count < 350 cells/mm3, active malignancy on systemic chemotherapy, solid organ transplant or hematopoietic stem cell transplantation, or hospital acquired pneumonia. Additionally, some clinical trials of procalcitonin have excluded patients with shock requiring vasopressor use, acute respiratory failure requiring mechanical ventilation, or those with known lung abscess/empyema. For further information please refer to:[email or web address] Lab Interpretation Normal (test code = 40296-6) [facility] TylerPO[facility] GLU[facility]SE (AUTOMATED)2020-06-28 18:27:00 Test Item Value Reference Range Interpretation Comments POCT GLU (test code = 7823607775) 350 mg/dL 70-110 H Lab Interpretation (test code = Abnormal 62515-1) [facility] TylerFOLATE2021-02-04 17:57:00 Test Item Value Reference Range Interpretation Comments FOLATE SER (test code = >20.0 3-20 H Biot in has been 7747375427) reported to cau se a positive bias, interpret resul ts relative to patient's use o f biotin. Lab Interpretation (test Abnormal code = 91817-7) [facility] TylerVITAMIN D, [id number] 17:07:00 Test Item Value Reference Range Interpretation Comments VIT D 25OH (test code = 31 ng/mL -80 80921-1) LUZ (test code = LUZ) Deficiency: <20 ng/mLInsufficiency : 20-24 ng/mLOptimal: 25-80 ng/mL Lab Interpretation (test Normal code = 75335-9) [facility] TylerUREA NITROGEN, URINE [id number] 16:53:00 Test Item Value Reference Range Interpretation Comments UREA N UR (test code = 8107594886) 500 mg/dL [facility] TylerFERRITIN [id number] 15:36:00 Test Item Value Reference Range Interpretation Comments FERRITIN (test code = 21.9 ng/mL 18-464 2298710128) LUZ (test code = LUZ) Biotin has been reported to cause a negative bias, interpret results relative to patient's use of biotin. Lab Interpretation (test Normal code = 28241-2) [facility] TylerTHYROID STIMULATING [id number] 15:28:00 Test Item Value Reference Range Interpretation Comments TSH (test code = See_Comment [Automated message] 3289948020) The system [employer] generated this result transmitted ref erence range: 0.45 - 4 .70 mIU/L. The refe rence range was not u sed to interpret this result as normal/abnor mal. Lab Interpretation (test Normal code = 59363-1) [facility] TylerPROTHROMBIN TIME / [id number] 14:32:00 Test Item Value Reference Range Interpretation Comments PROTIME PATIENT (test See_Comment H [Auto mated message] code = 5964-2) The system [employer] generated this result transmitted ref erence range: 12.0 - 1 4.7 Seconds. The reference range was not used to int erpret this result as normal/abnormal . INR (test code = 6301-6) Nor mal INR <1.1; Warfarin Therap eutic range 2.0 to 3. 0 or 2.5 to 3.5, dep ending upon the indica tions. Lab Interpretation (test Abnormal code = 54083-5) [facility] TylerSEDIMENTATION [id number] 14:20:00 Test Item Value Reference Range Interpretation Comments ESR (test code = See_Comment H [Automated message] 8855428233) The system [employer] generated this result transmitted ref erence range: 0 - 10 m m/HR. The reference r stephanie was not used to interpret this result as normal/abnor mal. Lab Interpretation (test Abnormal code = 99970-2) [facility] TylerPO[facility] GLUCOSE (AUTOMATED)2020-06-28 14:14:00 Test Item Value Reference Range Interpretation Comments POCT GLU (test code = 1863053622) 291 mg/dL 70-110 H Lab Interpretation (test code = Abnormal 81469-5) [facility] TylerGLYCOSYLATED HEMOGLOBIN (A1C)2020-06-28 14:00:00 Test Item Value Reference Range Interpretation Comments HGB A1C (test code = 10.5 % 4-6 H 4548-4) LUZ (test code = LUZ) %A1C (NGSP) Interpretation (ADA)4.8-5.6 ? ? Normal or (Non-Diabetic Range)5.7-6.4 ? ? Increased Risk (Pre-Diabetic)>6.5 ?Diabetes Indicated Lab Interpretation Abnormal (test code = 83001-0) [facility] TylerTROPONIN [id number] 13:38:00 Test Item Value Reference Range Interpretation Comments TROPONIN I (test 0.013 ng/mL See_Comment [Automated code = 2581300770) message] The system which generated this result transmitted reference range : <=0.034. The reference range was not used to interpret this result as normal/abnormal . LUZ (test code = Equal or Less than LUZ) 0.034 ng/ml---Normal ?Note: Cardiac troponin begins to rise 3-4 hours after the onset of ischemia. Repeat in 4-6 hours if the sample was drawn within 3-4 hours of the onset of the symptom and found normal. Between 0.035 and 0.120 ng/mL--- Borderline. Questionable myocardial injury or necrosis ? ?Note: Serial measurement may be necessary to confirm or exclude the diagnosis of myocardial injury or necrosis; Clinical correlation (symptoms, EKGs, imaging studies, and others) required; Repeat in 4-6 hours if clinically indicated. ? Equal or Higher than 0.121 ng/mL---Abnormal. Myocardial Injury or Necrosis Likely ? Biotin has been reported to cause a negative bias, interpret results relative to patient's use of biotin. ? Lab Interpretation Normal (test code = 23159-3) [facility] TylerIRON [id number] 13:36:00 Test Item Value Reference Range Interpretation Comments IRON (test code = 2207426770) 42 ug/dL 50-160 L TIBC (test code = 5482209638) 384 ug/dL 250-410 % FE SAT (test code = 2532908991) 11 % 20-50 L Lab Interpretation (test code = Abnormal 44282-0) [facility] TylerN-TERMINAL [id number] 13:35:00 Test Item Value Reference Range Interpretation Comments NT-proBNP (test code 1280 pg/mL See_Comment H [Autom ated = 6507252694) message] The system which generated this result transmitted reference range : <=450. The reference range was not used to interpret this result as normal/abnormal . LUZ (test code = ULZ) Biotin has been reported to cause a negative bias, interpret results relative to patient's use of biotin. Lab Interpretation Abnormal (test code = 19219-6) [facility] TylerLactate [id number] 13:29:00 Test Item Value Reference Range Interpretation Comments LDH (test code = 3219111219) 341 U/L 300-600 Lab Interpretation (test code = Normal 93667-6) [facility] TylerMAGNESIUM2021-02-04 13:28:00 Test Item Value Reference Range Interpretation Comments MAGNESIUM (test code = 3292496484) 1.6 mg/dL 1.7-2.4 L Lab Interpretation (test code = Abnormal 01034-8) [facility] TylerCOMP. METABOLIC PANEL (34733)2020-06-28 13:27:00 Test Item Value Reference Range Interpretation Comments NA (test code = 138 mmol/L 135-145 2680501574) K (test code = 4.1 mmol/L 3.5-5 9741916269) CL (test code = 97 mmol/L 98-108 L 5908139287) CO2 TOTAL (test code = 29 mmol/L 23-31 6644761156) AGAP (test code = 2-16 4961755873) BUN (test code = 20 mg/dL 7-23 8920858816) GLUCOSE (test code = 251 mg/dL 70-110 H 0395487301) CREATININE (test code = 0.86 mg/dL 0.6-1.25 0628736406) TOTAL BILI (test code = 0.8 mg/dL 0.1-1.6 9512921047) CALCIUM (test code = 9.5 mg/dL 8.6-10.6 4493121147) T PROTEIN (test code = 7.0 g/dL 6.3-8.2 7827363439) ALBUMIN (test code = 4.1 g/dL 3.5-5 4493234091) ALK PHOS (test code = 75 U/L 34-122 5328750343) ALTv (test code = 11 U/L 5-50 2-6) AST(SGOT) (test code = 15 U/L 13-40 1099379802) eGFR Calculation mL/min/1.73m2 (Non-) (test code = 6689338248) eGFR Calculation mL/min/1.73m2 () (test code = 3916520267) LUZ (test code = LUZ) Association of Glomerular Filtration Rate (GFR) and Staging of Kidney Disease* + --+ --+ ------+| GFR (mL/min/1.73 m2) ?| With Kidney Damage ?| ?Without Kidney Damage+ --------+ --------+ +| ?>90 ?| ?Stage one ?| ? Normal ?+ ---+ ---+ -------+| ?60-89 ?| ?Stage two ?| ? Decreased GFR ? + --+ --+ ------+| ?30-59 ?| ?Stage three ?| ? Stage three ? + --+ --+ ------+| ?15-29 ?| ?Stage four ? | ? Stage four ?+ ---+ ---+ -------+| ?<15 (or dialysis) ? ?| ?Stage five ? | ? Stage five ?+ ---+ ---+ -------+ *Each stage assumes the associated GFR level has been in effect for at least three months. ?Stages 1 to 5, with or without kidney disease, indicate chronic kidney disease. Notes: Determination of stages one and two (with eGFR >59mL/min/1.73 m2) requires estimation of kidney damage for at least three months as defined by structural or functional abnormalities of the kidney, manifested by either:Pathological abnormalities or Markers of kidney damage (including abnormalities in the composition of the blood or urine or abnormalities in imaging tests). Lab Interpretation Abnormal (test code = 42357-2) [facility] TylerPHOSPHORUS2021-02-04 13:27:00 Test Item Value Reference Range Interpretation Comments PHOSPHORUS (test code = 7616212290) 3.6 mg/dL 2.5-5 Lab Interpretation (test code = Normal 70453-2) [facility] TylerURIC [id number] 13:27:00 Test Item Value Reference Range Interpretation Comments URIC ACID (test code = 3261684058) 9.3 mg/dL 3.6-8 H Lab Interpretation (test code = Abnormal 21531-0) [facility] TylerLIPID PANEL (68552)(TOTAL CHOLESTEROL, TRIGLYCERIDES, HDL)2020-06-28 13:23:00 Test Item Value Reference Range Interpretation Comments CHOL (test code = 100 mg/dL 120-200 L 7925510307) HDL (test code = 25 mg/dL >40 L 8368284749) HDLC RATIO (test code = See_Comment [Au tomated message] 8238318237) The system [employer] generated this result transmit beatrice reference range : <=5.0. The refe rence range was not u sed to interpret th is result as normal/abnormal . TRIG (test code = 245 mg/dL 30-170 H 8249718290) LDL CHOL (test code = 26 mg/dL See_Comment [Auto mated message] 94102-9) The system [employer] generated this result transmit beatrice reference range : <=160. The refe rence range was not u sed to interpret th is result as normal/abnormal . VLDL (test code = 49 mg/dL 5-60 3228483034) Lab Interpretation (test Abnormal code = 48866-7) [facility] TylerMAGNESIUM2021-02-04 13:23:00 Test Item Value Reference Range Interpretation Comments MAGNESIUM (test code = 6242818107) 1.7 mg/dL 1.7-2.4 Lab Interpretation (test code = Normal 24820-7) [facility] TylerPHOSPHORUS2021-02-04 13:23:00 Test Item Value Reference Range Interpretation Comments PHOSPHORUS (test code = 4601287895) 3.7 mg/dL 2.5-5 Lab Interpretation (test code = Normal 17863-2) [facility] TylerURIC [id number] 13:22:00 Test Item Value Reference Range Interpretation Comments URIC ACID (test code = 5680811049) 9.6 mg/dL 3.6-8 H Lab Interpretation (test code = Abnormal 65774-2) [facility] TylerPROTEIN CREAT RATIO URINE [id number] 13:17:00 Test Item Value Reference Range Interpretation Comments T. PROT U (test code 11 mg/dL = 2888-6) CREAT U (test code = 51.4 mg/dL 2349750291) Protein/Creatinine 0.0-2.0 Ratio Urine (test code = 8422578696) LUZ (test code = LUZ) Random Urine Total Protein Reference Ranges Random Specimen: ? Less than 10 mg/dLFirst Morning Specimen: ? ?Less than 20 mg/dL ? [facility] TylerSODIUM, URINE [id number] 13:13:00 Test Item Value Reference Range Interpretation Comments NA URINE (test code = 1521392001) 113 mmol/L [facility] TylerADC / LCC - DRUG SCREEN [id number] 13:06:00 Test Item Value Reference Range Interpretation Comments BENZO U (test code = Presumptive Positive Negative A 1132751145) KADIE U (test code = Negative Negative 1406602226) AMPHET (test code = Negative Negative 2492158366) THC (test code = Negative Negative 6616323756) METHADONE (test code = Negative Negative 2088673551) Meth U (test code = Negative Negative 7823013998) OPIATES (test code = Negative Negative 5016116215) Cocaine Metabolite (test Negative Negative code = 0612821398) PROPOXY (test code = Negative Negative 4935777408) Tric U (test code = Negative Negative 5587492426) PCP (test code = Negative Negative 0452513254) OXYCOD (test code = Negative Negative 7876300109) LUZ (test code = LUZ) Urine Drug Cutoff Ranges Benzodiazepines: ? ? 150 ng/mLBarbiturates: ?200 ng/mLAmphetamine: ? 500 ng/mLCannabinoids: ?50 ?ng/mLMethadone: ? 200 ng/mLMethamphetamine: ? ? 500 ng/mL Opiates: ? 100 ng/mL or 2000 ng/mLCocaine: ? 150 ng/mLPropoxyphene: ?300 ng/mLTricyclics: ?300 ng/mLOxycodone: ? 100 ng/mLPCP: ? 25 ?ng/mL The results are to be used only for medical (i.e., treatment) purposes. Unconfirmed screening results must not be used for non-medical purposes (e.g., employment testing, legal testing). Lab Interpretation (test Abnormal code = 94614-8) [facility] WITH [id number] 12:45:00 Test Item Value Reference Range Interpretation Comments WBC (test code = See_Comment [Automated 8234-2) message] The sy stem which generated this result transmitted reference range : 4.20 - 10.70 10*3/?L. The reference range was not used to interpret this result as normal/abnormal . RBC (test code = See_Comment L [Automated 929-8) message] The sy stem which generated this result transmitted reference range : 4.26 - 5.52 10*6/?L. The reference range was not used to interpret this result as normal/abnormal . HGB (test code = 10.6 g/dL 12.2-16.4 L 718-7) HCT (test code = 34.4 % 38.4-49.3 L 4544-3) MCV (test code = 86.0 fL 81.7-95.6 787-2) MCH (test code = 26.5 pg 26.1-32.7 785-6) MCHC (test code = 30.8 g/dL 31.2-35 L 786-4) RDW-SD (test code = 50.2 fL 38.5-51.6 18487-0) RDW-CV (test code = 16.0 % 12.1-15.4 H 788-0) PLT (test code = See_Comment [Automated 487-3) message] The sy stem which generated this result transmitted reference range : 150 - 328 10*3/ ?L. The reference r stephanie was not used to interpret this result as normal/abnormal . MPV (test code = 11.0 fL 9.8-13 50677-8) NRBC/100 WBC (test See_Comment [Automat ed code = 5474315940) message] The system which generated this result transmitted reference range : 0.0 - 10.0 /100 WBCs. The refer ence range was not u sed to interpret th is result as normal/abnormal . NRBC x10^3 (test code <0.01 See_Comment [Auto mated = 7821095399) message] The s ystem which generated this result transmitted reference range : 10*3/?L. The reference range was not used to interpret this result as normal/abnormal . GRAN MAT (NEUT) % 63.7 % (test code = 770-8) IMM GRAN % (test code 0.50 % = 7002816604) LYMPH % (test code = 21.7 % 736-9) MONO % (test code = 10.2 % 5905-5) EOS % (test code = 2.9 % 713-8) BASO % (test code = 1.0 % 706-2) GRAN MAT x10^3(ANC) 4.02 10*3/uL 1.99-6.95 (test code = 5610204130) IMM GRAN x10^3 (test 0.03 10*3/uL 0-0.06 code = 2510935259) LYMPH x10^3 (test code 1.37 10*3/uL 1.09-3.23 = 731-0) MONO x10^3 (test code 0.64 10*3/uL 0.36-1.02 = 742-7) EOS x10^3 (test code = 0.18 10*3/uL 0.06-0.53 711-2) BASO x10^3 (test code 0.06 10*3/uL 0.01-0.09 = 704-7) Lab Interpretation Abnormal (test code = 18559-6) [facility] TylerCT CHEST PULMON[facility] [id number] 04:06:45 No acute pulmonary embolism. Moderate volume loculated right pleural effusion with atelectasis of theright lower and middle lobes. Peripheral opacity of the right upper lobe istechnically indeterminate, but may also be related to atelectasis. Considerfollow-up CT chest after resolution of acute process in 3 months to assessfor interval change. Mediastinal lymphadenopathy, likely reactive. Mild cardiomegaly. Contrast reflux into the IVC and hepatic veins may beseen with right heart dysfunction. Preliminary Report Dictated by Resident: Norm Rob MD., have reviewed this study and agree with the abovereport.PROCEDURE: CT ANGIO CHEST WITH CONTRAST - PE PROTOCOL CLINICAL INDICATION: 84 years Male PE suspected, high pretest prob COMPARISON: ?None. TECHNIQUE: ?Helical CT was performed and reconstructed at 1.25 mm slicethickness from lung apices to bases using 100 mL Omnipaque intravenouscontrast, without complication. ? Axial MIPs were generated and reviewed tofurther defineanatomy and possible pathology. ? (DFOV = 40 cm) FINDINGS: PULMONARY ARTERIES: Enhancement is appropriate for evaluation. No acute pulmonary embolism isidentified. CHEST: Lower neck/thyroid: Unremarkable. Lungs: Moderate volume right pleural effusion results in passive atelectasis ofthe right middle and lower lobes. Focal anterior right upper lobeatelectasis also present. The left lung is clear Central airway: Unremarkable. Pleura: Moderate volume loculated right pleural effusion. No left pleuraleffusion. No pleural thickening or pneumothorax. Thoracic aorta and great vessels: Classic three-vessel branching anatomy.Mild atherosclerotic calcifications at the aortic arch and descendingthoracic aorta. Normal in diameter. Heart and pericardium: Changes of CABG. Mild three-vessel coronary arterialcalcification. Mitral annular calcifications are seen. Mild cardiomegaly.Normal pericardium. Lymph nodes:1.1 cm right lower paratracheal lymph node. Prominent lefthilar lymph nodes, largest measuring 1.1 cm. Mediastinum: Unremarkable. Thoracic spine and chest wall: Changes of median sternotomy. Multileveldegenerative changes of the thoracic spine in the form of endplatesclerosis, marginal osteophytes and intervertebral disc space narrowing. Other Lines/Tubes/Devices/Hardware: None Visualized upper abdomen: Contrast reflux into the IVC and hepatic veins isseen. 1.3 cm left adrenal adenoma is seen [facility], [facility] Results Inft User - 06/27/2020 10:07 PM CSTPROCEDURE: CT ANGIO CHEST WITH CONTRAST - PE PROTOCOLCLINICAL INDICATION: 84 years Male PE suspected, high pretest probCOMPARISON: None.TECHNIQUE: Helical CT was performed and reconstructed at 1.25 mm slicethickness from lung apices to bases using 100 mL Omnipaque intravenouscontrast, without complication. Axial MIPs were generated and reviewed tofurther define anatomy and possible pathology. (DFOV = 40 cm)FINDINGS:PULMONARY ARTERIES: Enhancement is appropriate for evaluation. No acute pulmonary embolism isidentified.CHEST:Lower neck/thyroid: Unremarkable.Lungs: Moderate volume right pleural effusion results in passive atelectasis ofthe right middle and lower lobes. Focal anterior right upper lobeatelectasis also present.The left lung is clearCentral airway: Unremarkable.Pleura: Moderate volume loculated right pleural effusion. No left pleuraleffusion. No pleural thickening or pneumothorax.Thoracic aorta and great vessels: Classic three-vessel branching anatomy.Mild atherosclerotic calcifications at the aortic arch and descendingthoracic aorta. Normal in diameter.Heart and pericardium: Changes of CABG. Mild three-vessel coronary arterialcalcification. Mitral annular calcifications are seen. Mild cardiomegaly.Normal pericardium.Lymph nodes: 1.1 cm right lower paratracheal lymph node. Prominent lefthilar lymph nodes, largest measuring 1.1 cm.Mediastinum: Unremarkable.Thoracic spine and chest wall: Changes of median sternotomy. Multileveldegenerative changes of the thoracic spine in the form of endplatesclerosis, marginal osteophytes and intervertebral disc space narrowing.Other Lines/Tubes/Devices/Hardware: NoneVisualized upper abdomen: Contrast reflux into the IVC and hepatic veins isseen. 1.3 cm left adrenal adenoma is seen IMPRESSIONNo acute pulmonary embolism.Moderate volume loculated right pleural effusion with atelectasis of theright lower and middle lobes. Peripheral opacity of the right upper lobe istechnically indeterminate, but may also be related to atelectasis. Co nsiderfollow-up CT chest after resolution of acute process in 3 months to assessfor interval change.Mediastinal lymphadenopathy, likely reactive.Mild cardiomegaly. Contrast reflux into the IVC and hepatic veins may beseen with right heart dysfunction.Preliminary Report Dictated by Resident: Andrey Jean-Baptiste, Norm Sosa MD., have reviewed this study and agree with the abovereport.[facility] [id number] 01:14:52 Small to moderate right pleural effusion with adjacent atelectasis orinfiltrate. RL: [id number] End of report Ordering physician:YOVANI BAUTISTA CLINICAL HISTORY: ? ?Chest pain TECHNIQUE: Single view of the chest COMPARISON: ?None FINDINGS: Small to moderate right pleural effusion with adjacent atelectasis orinfiltrate. The left lung is grossly clear. No pneumothorax. Thecardiomediastinal silhouette is normal. Median sternotomy wires appearintact. Thoracic aortic calcifications. The upper abdomen is unremarkable. [facility], [facility] Inft User - 06/27/2020 7:15 PM CSTOrdering physician:YOVANI GUIDRYLINICAL HISTORY: Chest pain TECHNIQUE: Singleview of the chestCOMPARISON: None FINDINGS:Small to moderate right pleural effusion with adjacent atelectasis orinfiltrate. The left lung is grossly clear. No pneumothorax. Thecardiomediastinal silhouette is normal. Median sternotomy wires appearintact. Thoracic aortic calcifications. The upper abdomen is unremarkable.IMPRESSIONSmall to moderate right pleural effusion with adjacent atelectasis orinfiltrate.RL: [id number] of report [facility]TR[facility] 2020-06-28 01:06:00 Test Item Value Reference Range Interpretation Comments TROPONIN I (test 0.012 ng/mL See_Comment [Automated code = 3323891171) message] The system which generated this result transmitted reference range : <=0.034. The reference range was not used to interpret this result as normal/abnormal . LUZ (test code = Equal or Less than LUZ) 0.034 ng/ml---Normal ?Note: Cardiac troponin begins to rise 3-4 hours after the onset of ischemia. Repeat in 4-6 hours if the sample was drawn within 3-4 hours of the onset of the symptom and found normal. Between 0.035 and 0.120 ng/mL--- Borderline. Questionable myocardial injury or necrosis ? ?Note: Serial measurement may be necessary to confirm or exclude the diagnosis of myocardial injury or necrosis; Clinical correlation (symptoms, EKGs, imaging studies, and others) required; Repeat in 4-6 hours if clinically indicated. ? Equal or Higher than 0.121 ng/mL---Abnormal. Myocardial Injury or Necrosis Likely ? Biotin has been reported to cause a negative bias, interpret results relative to patient's use of biotin. ? Lab Interpretation Normal (test code = 68776-7) [facility] TylerPROTHROMBIN TIME / [id number] 01:03:00 Test Item Value Reference Range Interpretation Comments PROTIME PATIENT (test See_Comment H [Auto mated message] code = 5964-2) The system wh ich generated this result transmitted ref erence range: 12.0 - 1 4.7 Seconds. The reference range was not used to int erpret this result as normal/abnormal . INR (test code = 6301-6) Nor mal INR <1.1; Warfarin Therap eutic range 2.0 to 3. 0 or 2.5 to 3.5, dep ending upon the indica tions. Lab Interpretation (test Abnormal code = 87411-9) [facility] TylerN-TERMINAL [id number] 01:03:00 Test Item Value Reference Range Interpretation Comments NT-proBNP (test code 1200 pg/mL See_Comment H [Autom ated = 1045218045) message] The system which generated this result transmitted reference range : <=450. The reference range was not used to interpret this result as normal/abnormal . LUZ (test code = LUZ) Biotin has been reported to cause a negative bias, interpret results relative to patient's use of biotin. Lab Interpretation Abnormal (test code = 93180-2) [facility] TyleraPTT2021-02-04 00:59:00 Test Item Value Reference Range Interpretation Comments APTT Patient (test See_Comment [Automat ed code = 3173-2) message] The system which generated this result transmitted reference range : 23 - 38 Seconds . The reference range was not used to interpr et this result as normal/abnormal . LUZ (test code = LUZ) The [facility] patient population mean normal value for aPTT is 30 seconds. Lab Interpretation Normal (test code = 77788-5) [facility]. METABOLIC PANEL (61814)2020-06-28 00:54:00 Test Item Value Reference Range Interpretation Comments NA (test code = 136 mmol/L 135-145 6073341003) K (test code = 4.2 mmol/L 3.5-5 7020420493) CL (test code = 98 mmol/L 98-108 6984305580) CO2 TOTAL (test code = 26 mmol/L 23-31 3488931040) AGAP (test code = 2-16 2633684516) BUN (test code = 19 mg/dL 7-23 1160872556) GLUCOSE (test code = 284 mg/dL 70-110 H 1860585409) CREATININE (test code = 1.03 mg/dL 0.6-1.25 7466092382) TOTAL BILI (test code = 0.8 mg/dL 0.1-1.4 2549344358) CALCIUM (test code = 9.7 mg/dL 8.6-10.6 9346534037) T PROTEIN (test code = 7.6 g/dL 6.3-8.2 3131117742) ALBUMIN (test code = 4.4 g/dL 3.5-5 3168874344) ALK PHOS (test code = 88 U/L 34-122 1078122230) ALTv (test code = 13 U/L 5-50 1742-6) AST(SGOT) (test code = 17 U/L 13-40 0515179517) eGFR Calculation mL/min/1.73m2 (Non-) (test code = 7051500590) eGFR Calculation mL/min/1.73m2 () (test code = 5300737811) LUZ (test code = LUZ) Association of Glomerular Filtration Rate (GFR) and Staging of Kidney Disease* + --+ --+ ------+| GFR (mL/min/1.73 m2) ?| With Kidney Damage ?| ?Without Kidney Damage+ --------+ --------+ +| ?>90 ?| ?Stage one ?| ? Normal ?+ ---+ ---+ -------+| ?60-89 ?| ?Stage two ?| ? Decreased GFR ? + --+ --+ ------+| ?30-59 ?| ?Stage three ?| ? Stage three ? + --+ --+ ------+| ?15-29 ?| ?Stage four ? | ? Stage four ?+ ---+ ---+ -------+| ?<15 (or dialysis) ? ?| ?Stage five ? | ? Stage five ?+ ---+ ---+ -------+ *Each stage assumes the associated GFR level has been in effect for at least three months. ?Stages 1 to 5, with or without kidney disease, indicate chronic kidney disease. Notes: Determination of stages one and two (with eGFR >59mL/min/1.73 m2) requires estimation of kidney damage for at least three months as defined by structural or functional abnormalities of the kidney, manifested by either:Pathological abnormalities or Markers of kidney damage (including abnormalities in the composition of the blood or urine or abnormalities in imaging tests). Lab Interpretation Abnormal (test code = 73242-9) [facility] TylerLIPASE, [id number] 00:53:00 Test Item Value Reference Range Interpretation Comments LIPASE (test code = 5788717224) 58 U/L 0-220 Lab Interpretation (test code = Normal 70434-2) [facility] TylerCOVID-19 (ID NOW RAPID TESTING)2020-06-28 00:53:00 Test Item Value Reference Range Interpretation Comments SARS-CoV-2 Rapid ID NOW Not Detected Not Detected (test code = 91633-6) LUZ (test code = LUZ) ID NOW COVID-19 Assay is an isothermal nucleic acid amplification test intended for the qualitative detection of nucleic acid from SARS-CoV-2 viral RNA in nasopharyngeal ([employer]) specimens. It is used under Emergency Use Authorization (EUA) by FDA. The limit of detection (LOD) of the assay is 125 Genome Equivalents/mL. A positive result is indicative of the presence of SARS-CoV-2 RNA. ?Clinical correlation with patient history and other diagnostic information is necessary to determine patient infection status. A negative (Not Detected) result does not preclude SARS-CoV-2 infection. In patients with clinical symptoms and other tests that are consistent with SARS-CoV-2 infection, negative results should be treated as presumptive negative and a new specimen should be tested with alternative PCR molecular test. Invalid: Please collect a new specimen for repeat patient testing if clinically indicated. Lab Interpretation Normal (test code = 44677-6) [facility] WITH [id number] 00:35:00 Test Item Value Reference Range Interpretation Comments WBC (test code = See_Comment [Automated 6690-2) message] The sy stem which generated this result transmitted reference range : 4.20 - 10.70 10*3/?L. The reference range was not used to interpret this result as normal/abnormal . RBC (test code = See_Comment L [Automated 789-8) message] The sy stem which generated this result transmitted reference range : 4.26 - 5.52 10*6/?L. The reference range was not used to interpret this result as normal/abnormal . HGB (test code = 10.8 g/dL 12.2-16.4 L 718-7) HCT (test code = 34.8 % 38.4-49.3 L 4544-3) MCV (test code = 86.4 fL 81.7-95.6 787-2) MCH (test code = 26.8 pg 26.1-32.7 785-6) MCHC (test code = 31.0 g/dL 31.2-35 L 786-4) RDW-SD (test code = 50.7 fL 38.5-51.6 16624-9) RDW-CV (test code = 16.2 % 12.1-15.4 H 788-0) PLT (test code = See_Comment [Automated 777-3) message] The sy stem which generated this result transmitted reference range : 150 - 328 10*3/ ?L. The reference r stephanie was not used to interpret this result as normal/abnormal . MPV (test code = 11.0 fL 9.8-13 36838-4) NRBC/100 WBC (test See_Comment [Automat ed code = 2867567466) message] The system which generated this result transmitted reference range : 0.0 - 10.0 /100 WBCs. The refer ence range was not u sed to interpret th is result as normal/abnormal . NRBC x10^3 (test code <0.01 See_Comment [Auto mated = 2687648166) message] The s ystem which generated this result transmitted reference range : 10*3/?L. The reference range was not used to interpret this result as normal/abnormal . GRAN MAT (NEUT) % 61.2 % (test code = 770-8) IMM GRAN % (test code 0.50 % = 8370331143) LYMPH % (test code = 23.9 % 736-9) MONO % (test code = 10.4 % 5905-5) EOS % (test code = 2.9 % 713-8) BASO % (test code = 1.1 % 706-2) GRAN MAT x10^3(ANC) 3.99 10*3/uL 1.99-6.95 (test code = 3575730959) IMM GRAN x10^3 (test 0.03 10*3/uL 0-0.06 code = 0884955884) LYMPH x10^3 (test code 1.56 10*3/uL 1.09-3.23 = 731-0) MONO x10^3 (test code 0.68 10*3/uL 0.36-1.02 = 742-7) EOS x10^3 (test code = 0.19 10*3/uL 0.06-0.53 711-2) BASO x10^3 (test code 0.07 10*3/uL 0.01-0.09 = 704-7) Lab Interpretation Abnormal (test code = 46390-5) [facility]
[2022-05-07] MEDS ORDERED: NA CHLORIDE 0.9% 1,000 ML ONE (13:56)
[2022-05-07 14:07] LABS: Absolute Lymphocytes (CBC) 1.4 K/uL (0.7-4.9); Hematocrit 28.7 % (39.6-49.0); Lymphocytes % 19.1 % (15.3-44.8); MCV 79.5 fL (80-100); RBC Red Blood Cell Count 3.61 M/uL (4.33-5.43)
--- NOTE | 2022-05-07 14:09 | RAD REPORT ---
EXAM DESCRIPTION: RAD - Pelvis - 05/07/2022 1:43 pm CLINICAL HISTORY: Pelvic pain status post injury FINDINGS: Cortical irregularity subcapital right femur may indicate a fracture. If clinically indica beatrice further evaluation with CT could be obtained. No dislocation Osteoporosis
--- NOTE | 2022-05-07 14:09 | RAD REPORT ---
EXAM DESCRIPTION: RAD - Femur Right - 05/07/2022 1:43 pm CLINICAL HISTORY: Leg pain FINDINGS: Cortical regularity subcapital right femur may indicate a fracture. 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
--- NOTE | 2022-05-07 14:10 | RAD REPORT ---
EXAM DESCRIPTION: Omidt Single View05/07/2022 1:43 pm CLINICAL HISTORY: Cough COMPARISON: none FINDINGS: Small to moderate right pleural effusion is suspected with basilar atelectasis Left lung appears clear Heart is mildly enlarged. Postsurgical changes involve the chest
[2022-05-07 14:25] LABS: Protime INR 1.44
[2022-05-07 14:26] LABS: Albumin 3.5 g/dL (3.4-5.0); Bilirubin Direct 0.2 mg/dL (0-0.2); Bilirubin Total 0.6 mg/dL (0.2-1.0); Magnesium 2.9 mg/dL (1.6-2.4); Potassium 5.1 mmol/L (3.5-5.1); Protein, Total 7.6 g/dL (6.4-8.2); Troponin High Sensitivity 26.7 pg/mL (<58.9)
[2022-05-07 14:30] LABS: SARS-CoV-2 Antigen Rapid Res Negative (Negative)
--- NOTE | 2022-05-07 14:41 | EDPHYS ---
Physician Documentation [facility] Name: Vasu Carrera Age: 86 yrs Sex: Male : 1935 Arrival Date: 05/07/2022 Time: 13:[address] Private MD: Liat Vazquez C ED Physician Chet Grajeda HPI: 05/07 14:28 This 86 yrs old Male presents to ER via Ambulatory with complaints of Fall shukri Injury, Hip Pain. 14:28 Details of fall: The patient fell from an upright position, while walking. Onset: The shukri symptoms/episode began/occurred 2 week(s) ago. Associated injuries: The patient sustained right quadriceps, decreased range of motion, painful injury. Severity of symptoms: At their worst the symptoms were moderate, in the emergency department the symptoms are unchanged. The patient has not experienced similar symptoms in the past. right hip pain. Historical: - Allergies: 16:48 Morphine; ap3 16:48 Sulfa (Sulfonamide Antibiotics); ap3 - PMHx: 16:53 Hypertensive disorder; Diabetes mellitus; Atrial fibrillation; Congestive heart failure;ap3 - Immunization history:: Adult Immunizations up to date. - Social history:: Smoking status: Patient denies any tobacco usage or history of. ROS: 14:29 Constitutional: Negative for fever, chills, and weight loss, Eyes: Negative for injury, shukri pain, redness, and discharge, ENT: Negative for injury, pain, and discharge, Neck: Negative for injury, pain, and swelling, Cardiovascular: Negative for chest pain, palpitations, and edema, Respiratory: Negative for shortness of breath, cough, wheezing, and pleuritic chest pain, Abdomen/GI: Negative for abdominal pain, nausea, vomiting, diarrhea, and constipation, Back: Negative for injury and pain, : Negative for injury, bleeding, discharge, and swelling, Skin: Negative for injury, rash, and discoloration, Neuro: Negative for headache, weakness, numbness, tingling, and seizure, Psych: Negative for depression, anxiety, suicide ideation, homicidal ideation, and hallucinations, Allergy/Immunology: Negative for hives, rash, and allergies, Endocrine: Negative for neck swelling, polydipsia, polyuria, polyphagia, and marked weight changes, Hematologic/Lymphatic: Negative for swollen nodes, abnormal bleeding, and unusual bruising. 14:29 MS/extremity: Positive for decreased range of motion, pain, tenderness, of the right hip and right upper thigh. Exam: 14:29 Constitutional: This is a well developed, well nourished patient who is awake, alert, shukri and in no acute distress. Head/Face: Normocephalic, atraumatic. Eyes: Pupils equal round and reactive to light, extra-ocular motions intact. Lids and lashes normal. Conjunctiva and sclera are non-icteric and not injected. Cornea within normal limits. Periorbital areas with no swelling, redness, or edema. ENT: Nares patent. No nasal discharge, no septal abnormalities noted. Tympanic membranes are normal and external auditory canals are clear. Oropharynx with no redness, swelling, or masses, exudates, or evidence of obstruction, uvula midline. Mucous membranes moist. Neck: Trachea midline, no thyromegaly or masses palpated, and no cervical lymphadenopathy. Supple, full range of motion without nuchal rigidity, or vertebral point tenderness. No Meningismus. Chest/axilla: Normal chest wall appearance and motion. Nontender with no deformity. No lesions are appreciated. Cardiovascular: Regular rate and rhythm with a normal S1 and S2. No gallops, murmurs, or rubs. Normal PMI, no JVD. No pulse deficits. Respiratory: Lungs have equal breath sounds bilaterally, clear to auscultation and percussion. No rales, rhonchi or wheezes noted. No increased work of breathing, no retractions or nasal flaring. Abdomen/GI: Soft, non-tender, with normal bowel sounds. No distension or tympany. No guarding or rebound. No evidence of tenderness throughout. Back: No spinal tenderness. No costovertebral tenderness. Full range of motion. Male : Normal genitalia with no discharge or lesions. Skin: Warm, dry with normal turgor. Normal color with no rashes, no lesions, and no evidence of cellulitis. Neuro: Awake and alert, GCS 15, oriented to person, place, time, and situation. Cranial nerves II-XII grossly intact. Motor strength 5/5 in all extremities. Sensory grossly intact. Cerebellar exam normal. Normal gait. Psych: Awake, alert, with orientation to person, place and time. Behavior, mood, and affect are within normal limits. 14:29 Musculoskeletal/extremity: Extremities: grossly normal except: noted in the right hip and right upper thigh: decreased ROM, pain, ROM: limited active range of motion due to pain, limited passive range of motion due to pain, Circulation is intact in all extremities. Sensation intact. Compartment Syndrome exam of affected extremity: is normal. Weight bearing: can bear weight with assistance only, uses walker, DVT Exam: no swelling, no tenderness, negative Homans' sign noted on exam, no appreciated bluish discoloration, no erythema, no increased warmth, pain. 14:40 ECG was reviewed by the Attending Physician. [facility] Vital Signs: 13:42 Resp 16; Weight 76.2 kg; Height 5 ft. 11 in. (180.34 cm); Pain 8/10; jh5 14:21 BP 110 / 59; Pulse 56; Resp 17; Temp 98.7(O); Pulse Ox 96% on R/A; ap3 13:42 Body Mass Index 23.43 (76.20 kg, 180.34 cm) jh5 MDM: 13:45 Patient medically screened. shukri 14:33 Differential diagnosis: hip fracture, intertrochanteric fracture, femoral neck shukri fracture, arthritis. Differential diagnosis: contusion, fracture, multiple trauma, sprain, strain. Data reviewed: vital signs, nurses notes, lab test result(s), EKG, radiologic studies, CT scan, plain films. Data interpreted: carbon lamp cleaner: rate is 56 beats/min, rhythm is atrial fibrillation. Data interpreted: carbon lamp cleaner:. Test interpretation: by ED physician or midlevel provider: ECG, plain radiologic studies. Counseling: I had a detailed discussion with the patient and/or guardian regarding: the historical points, exam findings, and any diagnostic results supporting the discharge/admit diagnosis, lab results, radiology results, the need for further work-up and treatment in the hospital. 05/07 13:17 Order name: Basic Metabolic Panel; Complete Time: 14:41 shukri 05/07 13:17 Order name: CBC with Diff; Complete Time: 14:23 shukri 05/07 13:17 Order name: LFT's; Complete Time: 14:41 shukri 05/07 13:17 Order name: Magnesium; Complete Time: 14:41 shukri 05/07 13:17 Order name: NT PRO-BNP; Complete Time: 14:41 shukri 05/07 13:17 Order name: PT-INR; Complete Time: 14:41 [facility] 05/07 13:17 Order name: Troponin HS; Complete Time: 14:41 [facility] 05/07 13:17 Order name: XRAY Chest (1 view); Complete Time: 14:23 [facility] 05/07 13:17 Order name: Pelvis XRAY; Complete Time: 14:23 shukri 05/07 13:17 Order name: Femur Right XRAY; Complete Time: 14:23 [facility] 05/07 13:17 Order name: SARS RAPID; Complete Time: 14:41 [facility] 05/07 14:24 Order name: Type And Screen bd 05/07 16:54 Order name: ABO/RH no charge EDMS 05/07 13:17 Order name: EKG; Complete Time: 13:18 [facility] 05/07 13:17 Order name: Cardiac monitoring; Complete Time: 14:21 [facility] 05/07 13:17 Order name: EKG - Nurse/Tech; Complete Time: 14:21 [facility] 05/07 13:17 Order name: IV Saline Lock; Complete Time: 13:50 [facility] 05/07 13:17 Order name: Labs collected and sent; Complete Time: 13:51 [facility] 05/07 13:17 Order name: O2 Per Protocol; Complete Time: 13:51 [facility] 05/07 13:17 Order name: O2 Sat Monitoring; Complete Time: 13:51 [facility] 05/07 14:43 Order name: CT Traumagram (Head C Spine CAP wo con) [facility] 05/07 14:48 Order name: Head C Spine Cap Wo Con; Complete Time: 15:27 EDMS 05/07 14:56 Order name: CONS Physician Consult EDMS EC:40 Rate is 57 beats/min. Rhythm is irregularly irregular. QRS [place] is Normal. AK interval shukri is normal. QRS interval is normal. QT interval is normal. No Q waves. T waves are Normal. No ST changes noted. Clinical impression: Atrial Fibrillation. Interpreted by me. Reviewed by me. Administered Medications: 14:07 Drug: NS 0.9% 500 ml Route: IV; Rate: bolus; Site: right antecubital; ap3 15:46 Follow up: IV Status: Completed infusion ap3 14:36 Drug: NS 0.9% 1000 ml Route: IV; Rate: 125 ml/hr; Site: right forearm; ap3 16:56 Follow up: IV Status: IV converted to saline lock ap3 Disposition Summary: 05/07/22 14:40 Hospitalization Ordered Hospitalization Status: Inpatient Admission shukri Provider: Liat Vazquez cha Location: Telemetry/MedSurg (Inpatient) shukri Condition: Stable shukri Problem: new shukri Symptoms: have improved shukri Bed/Room Type: Standard shukri Room Assignment: 205(05/07/22 16:38) dw Diagnosis - Fall on same level, unspecified shukri - Pain in right hip shukri - Fracture of unspecified part of neck of right femur - impacted shukri - Unspecified kidney failure shukri - Anemia, unspecified shukri - Persistent atrial fibrillation - on xarelto shukri Forms: - Medication Reconciliation Form shukri - SBAR form shukri Signatures: Dispatcher [employer] EDMS Miladys Brian RN RN dw Chet Grajeda MD MD cha Prokisch, Amanda RN RN ap3 Kasia Ceballos RN RN jh5 Corrections: (The following items were deleted from the chart) 13:45 13:18 Hip Right 2 View+RAD.RAD.BRZ ordered. EDMS EDMS 14:48 14:28 Hip Right Wo Con ordered. EDMS EDMS 16:38 14:40 shukri dw
--- NOTE | 2022-05-07 14:41 | ER ---
Nurse's Notes [facility] Name: Vasu Carrera Age: 86 yrs Sex: Male : 1935 Arrival Date: 05/07/2022 Time: 13:[address] Private MD: Liat Vazquez C Diagnosis: Fall on same level, unspecified;Pain in right hip;Fracture of unspecified part of neck of right femur-impacted;Unspecified kidney failure;Anemia, unspecified;Persistent atrial fibrillation-on xarelto Presentation: 05/07 13:42 Chief complaint: Patient states: fell the week of thanksgiving on hard wood floor; jh5 right hip, thigh, and foot have all been hurting since. Coronavirus screen: Vaccine status: Patient reports receiving the 2nd dose of the covid vaccine. Client denies travel out of the [place] in the last 14 days. Ebola Screen: Patient negative for fever greater than or equal to 101.5 degrees Fahrenheit, and additional compatible Ebola Virus Disease symptoms Patient denies exposure to infectious person. Patient denies travel to an Ebola-affected area in the 21 days before illness onset. Initial Sepsis Screen: Does the patient meet any 2 criteria? No. Patient's initial sepsis screen is negative. Does the patient have a suspected source of infection? No. Patient's initial sepsis screen is negative. Risk Assessment: Do you want to hurt yourself or someone else? Patient reports no desire to harm self or others. 13:42 Method Of Arrival: Ambulatory [facility] 13:42 Acuity: WILBERT 3 jh5 14:22 Onset of symptoms is unknown. ap3 Triage Assessment: 13:42 General: Appears uncomfortable, slender, well groomed, well developed, Behavior is jh5 calm, cooperative, appropriate for age. Pain: Complains of pain in right leg. Historical: - Allergies: 16:48 Morphine; ap3 16:48 Sulfa (Sulfonamide Antibiotics); ap3 - PMHx: 16:53 Hypertensive disorder; Diabetes mellitus; Atrial fibrillation; Congestive heart failure;ap3 - Immunization history:: Adult Immunizations up to date. - Social history:: Smoking status: Patient denies any tobacco usage or history of. Screenin:51 Abuse screen: Denies threats or abuse. Nutritional screening: No deficits noted. ap3 Tuberculosis screening: No symptoms or risk factors identified. Fall Risk Fall in past 12 months (25 points). 14:23 [facility] ED Fall Risk Assessment (Adult) History of falling in the last 3 months, ap3 including since admission Yes- single mechanical fall (1 pt) Confusion or Disorientation No (0 pts) Intoxicated or Sedated No (0 pts) Impaired Gait Yes (1 pt) Mobility Assist Device Used Yes (1 pt) Altered Elimination No (0 pt) Score/Fall Risk Level 3 or more points = High Risk Oriented to surroundings, Maintained a safe environment, Educated pt \T\ family on fall prevention, incl call for assistance when getting out of bed, Assessed \T\ reinforced patient's understanding of fall precautions, Provided non-skid footwear, Hourly rounding (assess needs \T\ fall precautionary measures) done, Used ambulatory aids as needed (educated on \T\ assisted with), Implemented a Fall Risk Plan of Care, Apply high fall risk patient identification: yellow non skid footwear/ fall signage, Placed fall mat w/ non beveled edge next to bed, Remained with patient while ambulating. 14:24 Humpty Dumpty Scale Fall Assessment Tool (age< 18yrs) Age 13 years and above (1 pt). ap3 Assessment: 13:51 Reassessment: pt refusing covid swab at this time. ap3 14:22 General: Appears in no apparent distress. Behavior is calm, cooperative. Pain: ap3 Complains of pain in right leg. Neuro: Level of Consciousness is awake, alert, obeys commands, Oriented to person, place, time, situation. Cardiovascular: Patient's skin is warm and dry. Cardiovascular:. Respiratory: Airway is patent Respiratory effort is even, unlabored, Respiratory pattern is regular, symmetrical. EENT: pt is hard of hearing. 16:55 Reassessment: nurse attempted report. receiving nurse is unavailable at this time. ap3 18:08 Reassessment: Patient and/or family updated on plan of care and expected duration. Pain ap3 level reassessed. Patient is alert, oriented x 3, equal unlabored respirations, skin warm/dry/pink. Vital Signs: 13:42 Resp 16; Weight 76.2 kg; Height 5 ft. 11 in. (180.34 cm); Pain 8/10; jh5 14:21 BP 110 / 59; Pulse 56; Resp 17; Temp 98.7(O); Pulse Ox 96% on R/A; ap3 13:42 Body Mass Index 23.43 (76.20 kg, 180.34 cm) [facility] ED Course: 13:14 Patient arrived in ED. am2 13:14 Liat Vazquez MD is Private Physician. am2 13:15 Chet Grajeda MD is Attending Physician. [facility] 13:42 Arm band placed on left wrist. [facility] 13:44 Triage completed. [facility] 13:45 XRAY Chest (1 view) In Process Unspecified. EDMS 13:45 Pelvis XRAY In Process Unspecified. EDMS 13:45 Femur Right XRAY In Process Unspecified. EDMS 13:50 Inserted saline lock: 20 gauge in right antecubital area, using aseptic technique. ap3 Blood collected. 13:51 Patient has correct armband on for positive identification. Bed in low position. Call ap3 light in reach. Side rails up X2. Adult w/ patient. Pulse ox on. NIBP on. Door closed. Noise minimized. 14:21 Veronica Leyva, RN is Primary Nurse. ap3 14:34 Liat Vazquez MD is Hospitalizing Provider. shukri 14:48 Head C Spine Cap Wo Con In Process Unspecified. EDMS 16:55 No provider procedures requiring assistance completed. Patient admitted, IV remains in ap3 place. Administered Medications: 14:07 Drug: NS 0.9% 500 ml Route: IV; Rate: bolus; Site: right antecubital; ap3 15:46 Follow up: IV Status: Completed infusion ap3 14:36 Drug: NS 0.9% 1000 ml Route: IV; Rate: 125 ml/hr; Site: right forearm; ap3 16:56 Follow up: IV Status: IV converted to saline lock ap3 Medication: 16:55 VIS not applicable for this client. ap3 Outcome: 14:40 Decision to Hospitalize by Provider. shukri 17:53 Admitted to Med/surg ap3 17:53 Condition: good 17:53 Instructed on the need for admit. 18:10 Patient left the ED. ap3 Signatures: Dispatcher [employer] EDChet Rivas MD MD cha Moreno, Amanda am2 Veronica Leyva RN RN ap3 Tucker, Kasia, RN RN jh5
--- NOTE | 2022-05-07 15:09 | RAD REPORT ---
EXAM DESCRIPTION: CT - Head C Spine Cap Wo Con - 05/07/2022 2:48 pm CLINICAL HISTORY: Head and neck injury with chest and abdominal pain status post fall TECHNIQUE: Computed axial tomography of head, neck, chest, abdomen and pelvis obtained. IV and oral contrast not requested. Coronal and sagittal reconstruction performed. All CT scans are performed using dose optimization technique as appropriate and may include automated exposure control or mA/KV adjustment according to patient size. COMPARISON: None FINDINGS: An intracranial bleed is not seen. The ventricles are normal in caliber. An extra-axial fluid collection is not noted. . Fluid within the sinuses/mastoids is not seen. A cervical fracture is not seen. No dislocation is noted. Mild posterior subluxation C3 on C4 The evaluation of mediastinum, francisco javier, vessels, solid organs and bowel are limited secondary to the lac k of contrast administration. A mediastinal hematoma is not noted. A pleural effusion is not seen. A lung contusion is not present. The liver,spleen, pancreas, adrenals,kidneys and bladder do not demonstrate an acute traumatic injury Small right pleural effusion with a thickened rim indicates that it likely is chronic. Impacted subcapital fracture right femur IMPRESSION: No acute intracranial abnormality is seen. A cervical fracture is not visualized. If the patient continues have symptoms to suggest intracrania l/spinal cord pathology MRI be recommended Impacted subcapital fracture right femur
[2022-05-07] MEDS ORDERED: MORPHINE 2 MG/ML SYR IV PRN (19:01)
[2022-05-07] MEDS ORDERED: ONDANSETRON 4 MG/2 ML VIAL IV PRN (19:01)
[2022-05-07] MEDS ORDERED: NA CHLORIDE 0.9% 1,000 ML IV SCH (19:01)
[2022-05-07] MEDS ORDERED: ACETAMINOPHEN 500 MG TAB PO PRN (19:01)
[2022-05-07 20:45] VITALS: BMI 23.4
[2022-05-07] MEDS ORDERED: FAMOTIDINE 20 MG/2 ML VIAL IV ONE (21:00)
[2022-05-07] MEDS: ACETAMINOPHEN 325 MG TABLET PO PRN (21:08)
[2022-05-07] MEDS ORDERED: GLUCAGON 1 MG/VIAL IM PRN (22:17)
[2022-05-07] MEDS ORDERED: D50W 25 GM/50 ML SYRINGE IV PRN (22:17)
[2022-05-07] MEDS ORDERED: D10W 125 ML IV PRN (22:42)
[2022-05-07] MEDS: NA CHLORIDE 0.9% 1,000 ML IV SCH (23:00)
[2022-05-08] MEDS: ACETAMINOPHEN 325 MG TABLET PO PRN (02:23)
[2022-05-08] MEDS: LEVOTHYROXINE SOD 0.05 MG TABLET PO SCH (05:29)
[2022-05-08 06:11] LABS: Absolute Lymphocytes (CBC) 1.3 K/uL (0.7-4.9); Hematocrit 28.3 % (39.6-49.0); Lymphocytes % 21.6 % (15.3-44.8); MCV 79.4 fL (80-100); MPV 7.7 fL (7.6-11.3); RBC Red Blood Cell Count 3.57 M/uL (4.33-5.43)
[2022-05-08 06:23] LABS: Potassium 4.5 mmol/L (3.5-5.1)
[2022-05-08] MEDS: INSULIN -REGULAR HUMAN 50 UNIT/0.5 ML ML SQ SCH ×4 (07:30→21:50)
--- NOTE | 2022-05-08 08:04 | EKG ---
Test Date: 2022-05-07 Test Time: 14:15:13 Applier: ALP MEASUREMENT RESULTS: Intervals: Rate: 57 IL: QRSD: 88 QT: 398 QTc: 387 [place]: P: IL: QRS: 90 T: 49 INTERPRETIVE STATEMENTS: Atrial fibrillation with slow ventricular response Rightward axis Abnormal ECG Compared to ECG 10/29/1998 00:56:00 Right-axis deviation now present Sinus rhythm no longer present Electronically Signed On 05-08-22 08:01:50 [employer] HE[employer] COUNSELOR by Kevin Pham
[2022-05-08] MEDS ORDERED: ISOSORBIDE MONO SR 30 MG TAB PO SCH (09:00)
[2022-05-08] MEDS: METOPROLOL TAR 25 MG TAB PO SCH ×2 (09:00→21:00)
--- NOTE | 2022-05-08 10:37 | HP ---
Date of Admission: 05/07/2022 Chief Complaint: Hip pain and fall. History Of Present Illness: This is an 86-year-old pleasant male patient, who came in to see me at [facility] for his regular followup visit on 01/04/2022 and at that time, he reported that he had fallen d own about 2 weeks ago and was complaining of pain in the right lower back and right hip area since th e fall. He did not seek any medical attention and when he notified me about this during office visit , he was advised to get x-ray of lumbosacral spine and hip. This x-ray was done as outpatient today and radiologist contacted and informed me that he was concerned about possibility of hip fracture, so the patient's was contacted soon after this and was advised to bring the patient to the emergen cy room. Details were discussed with ER physician as well and after further evaluation, diagnosis of right hip subcapital fracture was confirmed with x-ray as well as CAT scan of the hip and pelvis and the patient was admitted to the hospital. When I saw him this evening, he denied any other specific complaints except lower back and hip pain, which has remained unchanged in last 2 weeks and in fact ever since he fell down, he has continued to walk using a walker. Allergies: TO MORPHINE CAUSING HEADACHE AND SULFA CAUSING NAUSEA. Medications: Farxiga 10 mg daily, digoxin 0.125 mg daily, escitalopram 10 mg daily, isosorbide monon itrate 30 mg daily, levothyroxine 50 mcg daily, Tradjenta 5 mg daily. Torsemide 20 mg daily, he was on 50 mg daily and as of yesterday dose was reduced to 20 mg daily. Magnesium oxide 400 mg 2 times a day, metoprolol tartrate 50 mg 2 times a day, lisinopril 10 mg daily, Xarelto 15 mg daily, rosuvasta tin 5 mg daily, tamsulosin 0.4 mg daily at bedtime, and tramadol 50 mg takes half a tablet daily as n eeded for arthritis pain, trazodone 50 mg half tablet at bedtime. Review of Systems: Musculoskeletal: As mentioned above. All other systems reviewed and negative. Past Medical History: The patient had COVID-19 infection in October 2021, hypothyroidism, type 2 diabet es mellitus, hypertension, hyperlipidemia, coronary artery disease, chronic diastolic heart failure, chronic atrial fibrillation, gastroesophageal reflux disease, diverticulosis, benign prostatic hypert rophy, osteoarthritis at multiple sites, anxiety, and insomnia. Past Surgical History: Significant for coronary artery bypass surgery in 2017, carotid artery endart erectomy on both sides, surgery for right thumb fracture 11/21/2011, and bilateral knee replacement i n the past. Family History: Father , had tuberculosis. Mother , details unknown. Brother , had con gestive heart failure and sister in motor vehicular accident. Social History: Negative for smoking. Use of alcohol negative. Physical Examination: Vital Signs: When he was admitted; temperature 98.7, pulse 56, respiratory rate 17, blood pressure 1 10/59, oxygen saturation 96%. Height 5 feet 11 inches, weight 168 pounds. General: Awake, alert, oriented, not in distress. HEENT: Head atraumatic, normocephalic. Conjunctivae nonerythematous. Sclerae white. Mouth, no thr ush or edema noted. Ears/Nose, no mass, lesion, discharge noted. Neck: Supple. No JVD, lymph nodes, bruit, thyromegaly noted. Lungs: Bilateral good equal air entry. Clear to auscultation. No rhonchi. No rales. Heart: Normal heart sounds, no murmur or gallop. Abdomen: Soft, bowel sounds normal. No guarding, rigidity, tenderness, mass, hepatosplenomegaly, dis tention, or bruit noted. Extremities: No leg edema. No calf tenderness. Skin: No rash, ulcer, cellulitis. Lymphatics: No lymph node enlargement in neck, supraclavicular, infraclavicular region. Neuro: No focal neurological deficit. Chest: Unremarkable. External Genitalia: Deferred. Rectal: Deferred. Laboratory Data: White count 7.9, hemoglobin 9.3, platelets 294. Sodium 133, potassium 5.1, chlorid e 101, bicarb 26, BUN 71, creatinine 2.19, glucose 240. Liver function tests unremarkable. ProBNP 2 445. COVID-19 test negative. Chest x-ray shows [id number] right pleural effusion with cardio megaly. X-ray of the right hip shows presence of cortical irregularity of the right femur in the sub capital region and CAT scan of the head was negative for any acute changes. CAT scan of the right hi p subcapital fracture. Impression: 1.Right hip subcapital fracture. 2.Chronic diastolic heart failure. 3.Chronic kidney disease, stage 4. 4.Anemia due to chronic kidney disease. 5.Hyponatremia. 6.Hyperkalemia. 7.Type 2 diabetes mellitus, uncontrolled. 8.Type 2 diabetes mellitus with chronic kidney disease. 9.Coronary artery disease. 10.Pleural effusion. 11.Hypertension. 12.Hyperlipidemia. 13.Chronic atrial fibrillation. 14.Gastroesophageal reflux disease. 15.Benign prostatic hypertrophy. 16.Osteoarthritis, multiple sites. 17.Insomnia. 18.Anxiety. 19.Diverticulosis. 20.Hypothyroidism. Plan: We will go ahead and admit the patient to hospital for further evaluation and management of th is problem. The patient is appropriate for inpatient and [facility] We will consult Cardiology for cardiac clearance and get echo with Doppler. Consult orthopedic s Dr. Lance baig. For his diabetes, we will manage it with sliding scale insulin per order. For atr ial fibrillation, he takes Xarelto 15 mg daily and we will not give that anymore and restart Xarelto after surgery at appropriate time, but right now, SCD was ordered for DVT prophylaxis. Continue digo [place] per order for rate control. For hypertension and coronary artery disease, we will continue his m etoprolol per order and also continue isosorbide. Continue lisinopril per order as well. We will mo nitor blood pressure, hold antihypertensive medication as per parameter instructions. Continue stati n therapy for hyperlipidemia and continue levothyroxine for hypothyroidism. We will also continue hi s tamsulosin for benign prostatic hypertrophy. Pain medications will be given per order. Details an d plan of treatment discussed with the patient. The right pleural effusion will not require any furt her intervention at this point. Hopefully, we can plan to have surgery tomorrow and details and plan of treatment discussed with the patient. The patient is at acceptable risk from hip surgery. JAMEE/MODL Voice ID: [id number]
[2022-05-08] MEDS: FAMOTIDINE 20 MG/2 ML VIAL IV SCH (12:39)
[2022-05-08] MEDS: MEPERIDINE HCL 25 MG/ML SYR IV PRN ×3 (12:39→21:25)
--- NOTE | 2022-05-08 13:49 | EKG ---
Test Date: 2022-05-08 Test Time: 10:06:13 Leaf Binner: RAYMUNDO MEASUREMENT RESULTS: Intervals: Rate: 68 IN: QRSD: 88 QT: 398 QTc: 423 [place]: P: IN: QRS: 94 T: 63 INTERPRETIVE STATEMENTS: Atrial fibrillation Rightward axis Abnormal ECG Compared to ECG 05/07/2022 14:15:13 No significant changes Electronically Signed On 05-08-22 13:49:07 OCCUPATIONAL NURSE by Kit Hewitt
[2022-05-08] MEDS: DIGOXIN 0.125 MG TABLET PO SCH (15:17)
[2022-05-08] MEDS: ISOSORBIDE MONO SR 30 MG TAB PO SCH (15:18)
[2022-05-08] MEDS: TAMSULOSIN 0.4 MG SR CAP PO SCH (15:18)
[2022-05-08] MEDS: TORSEMIDE 20 MG TAB PO SCH (15:18)
[2022-05-08] MEDS: ESCITALOPRAM 20 MG TAB PO SCH (15:18)
[2022-05-08] MEDS: MAGNESIUM OXIDE 400 MG TAB PO SCH (15:19)
[2022-05-08] MEDS: NA CHLORIDE 0.9% 1,000 ML IV SCH (19:00)
[2022-05-08] MEDS: ENSURE SURGERY 237 ML CAN PO SCH (21:00)
[2022-05-09] MEDS: ACETAMINOPHEN 325 MG TABLET PO PRN (03:35)
[2022-05-09] MEDS: LEVOTHYROXINE SOD 0.05 MG TABLET PO SCH (06:12)
--- NOTE | 2022-05-09 06:59 | ECHO ---
HEIGHT: 5 ft 11 in WEIGHT: 168 lb 0 oz DATE OF STUDY: 05/08/[address]: Chet Grajeda MD 2-DIMENSIONAL: YES M.MODE: YES DOPPLER: YES COLOR FLOW: YES TDS: PORTABLE: DEFINITY: BUBBLE STUDY: DIAGNOSIS: ATRIAL FIBRILLATION/ PREOP CARDIAC HISTORY: CATHERIZATION: SURGERY: YES PROSTHETIC VALVE: PACEMAKER: DEFIB MEASUREMENTS (cm) DIASTOLIC (NORMALS) SYSTOLIC (NORMALS) IVSd 1.3 (0.6-1.2) LA Diam 4.9 (1.9-4.0) LVEF 64% LVIDd 3.3 (3.5-5.7) LVIDs 2.4 (2.0-3.5) %FS 34% LVPWd 1.4 (0.6-1.2) Ao Diam 3.1 (2.0-3.7) 2 DIMENSIONAL ASSESSMENT: RIGHT ATRIUM: ENLARGED LEFT ATRIUM: ENLARGED RIGHT VENTRICLE: NORMAL LEFT VENTRICLE: NORMAL TRICUSPID VALVE: MILD TRICUSPID REGURGIATION MITRAL VALVE: HEAVILY CALCIFIED PULMONIC VALVE: NORMAL AORTIC VALVE: NORMAL PERICARDIAL EFFUSION: NONE AORTIC ROOT: NORMAL LEFT VENTRICULAR WALL MOTION: NORMAL DOPPLER/COLOR FLOW: SEE BELOW COMMENTS: 1. NORMAL LEFT VENTRICULAR EJECTION FRACTION 60-65% WITH NORMAL WALL MOTION 2. SIGNIFICANT DIASTOLIC DYSFUNCTION (SEVERE) 3. BI-ATRIAL ENLARGEMENT 4. CALCIFIED MITRAL VALVE WITH MILD MITRAL REGURGITATION, MILD MITRAL STENOSIS 5. MILD TRICUSPID REGURGITATION 6. MODERATE PULMONARY HYPERTENSION WITH RIGHT VENTRICULAR SYSTOLIC PRESSURE OF 55-60 mmHg TECHNOLOGIST: ALBA BELLAMY
[2022-05-09] MEDS: INSULIN -REGULAR HUMAN 50 UNIT/0.5 ML ML SQ SCH ×4 (07:30→21:33)
[2022-05-09] MEDS: ENSURE SURGERY 237 ML CAN PO SCH ×2 (09:00→21:00)
[2022-05-09] MEDS: METOPROLOL TAR 25 MG TAB PO SCH ×2 (10:03→21:00)
[2022-05-09] MEDS: DIGOXIN 0.125 MG TABLET PO SCH (10:03)
[2022-05-09] MEDS ORDERED: EPINEPHRINE/PF 1 MG/ML AMP ONE (10:38)
[2022-05-09] MEDS ORDERED: LIDOCAINE 1% MPF 5 ML VIAL ONE (10:38)
[2022-05-09] MEDS ORDERED: BUPIVACAINE 0.25% PF 10 ML VIAL ONE (10:39)
[2022-05-09] MEDS ORDERED: dexAMETHasone 10 MG/ML VIAL ONE (10:39)
[2022-05-09] MEDS ORDERED: FENTANYL CITR 100 MCG/2 ML ONE (10:39)
[2022-05-09] MEDS ORDERED: BUPIVACAINE 0.5% PF 10 ML VIAL ONE (10:39)
[2022-05-09] MEDS ORDERED: CEFAZOLIN SODIUM 1 GM/VIAL ONE ×2 (10:57→18:11)
[2022-05-09] MEDS ORDERED: ONDANSETRON 4 MG/2 ML VIAL ONE (10:59)
[2022-05-09] MEDS ORDERED: LIDOCAINE 2% MPF 5 ML VIAL ONE (10:59)
[2022-05-09] MEDS ORDERED: propofoL 200 MG/20 ML VIAL IV ONE ×3 (10:59→12:19)
--- NOTE | 2022-05-09 12:50 | P.BOP ---
Preoperative diagnosis: right femoral neck fracture Postoperative diagnosis: same Primary procedure: closed reduction percutaneus screw fixation right femoral neck fracture Steno Typist: NONE,NONE Estimated blood loss: 30 cc Specimen: none Findings: see dictation Anesthesia: General Complications: None Implants: 3- 7.0 cannulated screws Fluids & blood products: per anesthesia record Transferred to: Recovery Room Condition: Good
[2022-05-09] MEDS: HYDROMORPHONE HCL 1 MG/ML INJ ONE ×4 (12:53→13:18)
[2022-05-09] MEDS ORDERED: TRAMADOL HCL 50 MG TAB PO PRN (13:11)
--- NOTE | 2022-05-09 13:33 | RAD REPORT ---
EXAM DESCRIPTION: RAD - Hip Right 2 View - 05/09/2022 1:26 pm CLINICAL HISTORY: postop Hip pain and swelling COMPARISON: Hip Right 2 View dated 05/07/2022; Pelvis dated 05/07/2022; Femur Right dated 05/07/2022 ; Chest Single View dated 05/07/2022; Head C Spine Cap Wo Con dated 05/07/2022 FINDINGS: Three compression screw have been placed in the proximal right femur. Skin dominik are pre sent laterally. No immediate complications.
[2022-05-09 13:37] LABS: Hematocrit 30.3 % (39.6-49.0)
--- NOTE | 2022-05-09 13:41 | RAD REPORT ---
EXAM DESCRIPTION: RAD - Fluoroscopy <1 Hour - 05/09/2022 1:35 pm CLINICAL HISTORY: RT HIP NAILING COMPARISON: No comparisons FINDINGS: Fluoroscopy time: 1.1 minutes.
[2022-05-09 16:54] LABS: Hematocrit 33.9 % (39.6-49.0)
[2022-05-09] MEDS: ISOSORBIDE MONO SR 30 MG TAB PO SCH (17:22)
[2022-05-09] MEDS: TORSEMIDE 20 MG TAB PO SCH (17:22)
[2022-05-09] MEDS: TAMSULOSIN 0.4 MG SR CAP PO SCH (17:22)
[2022-05-09] MEDS: MAGNESIUM OXIDE 400 MG TAB PO SCH (17:23)
[2022-05-09] MEDS: ESCITALOPRAM 20 MG TAB PO SCH (17:23)
[2022-05-09] MEDS: FAMOTIDINE 20 MG/2 ML VIAL IV SCH (17:30)
[2022-05-09] MEDS: NA CHLORIDE 0.9% 1,000 ML IV SCH (17:31)
[2022-05-09] MEDS ORDERED: NA CHLORIDE 0.9% 50 ML ONE (18:10)
[2022-05-09] MEDS: DOCUSATE NA 100 MG CAP PO PRN (18:12)
[2022-05-09] MEDS: CEFAZOLIN 1 GM in NA CHLORIDE 0.9% 50 ML IVPB SCH (18:12)
--- NOTE | 2022-05-09 18:24 | PN ---
Date of Progress Note: 05/08/2022 Subjective: The patient was seen this morning for followup. No new complaints or problems reported by patient. He was lying in bed, not in any distress. Denies any chest pain or shortness of breath. Objective: Vital Signs: Reviewed. HEENT: Unremarkable. Lungs: Clear to auscultation. Heart: Sounds normal. Abdomen: Soft. Bowel sounds normal. No guarding, rigidity, tenderness, distention. Extremities: No leg edema. Laboratory Data: White count 5.9, hemoglobin 9.3, platelets 256. Sodium 136, potassium 4.5, chlorid e 107, bicarb 25, BUN 46, creatinine 1.27, glucose 184. Impression: 1.Right hip fracture. 2.Congestive heart failure. 3.Hypertension. 4.Diabetes mellitus. 5.Chronic kidney disease, stage 3B. Plan: We will go ahead and continue current medical management for hypertension, diabetes, and conge stive heart failure. The patient is medically stable and is at acceptable risk from planned hip surg federico. We are waiting on echocardiogram and Cardiology clearance. Details and plan of treatment discu ssed with the patient. JAMEE/MODL Voice ID: [id number] Report ID: [id number]
--- NOTE | 2022-05-09 19:07 | CON ---
Date of Consultation: 05/08/2022 Reason For Consultation: Right hip pain. History Of Present Illness: Vasu is an 86-year-old male who presented to the ER yesterday after having continued right hip pain. He reports a fall around Thanksgiving with subsequent pain to his right hip. He has been immobilized on the right lower extremity. His x-rays and CAT scan in the emergency room demonstrated a valgus impacted femoral neck fracture. Patient reports pain with ambulation and he has been using a walker. He denies any other musculoskeletal pain at this time. Review of Systems: As above, otherwise negative. Past Medical History: Hypothyroidism, diabetes, hypertension, hyperlipidemia, coronary artery disease, AFib, GERD, diverticulosis, BPH. Past Surgical History: Includes CABG, carotid endarterectomy, bilateral total knee replacement. Social History: Negative for smoking. No alcohol use. Family History: Reviewed and noncontributory. Physical Examination: General: In no apparent distress. HEENT: Normocephalic, atraumatic. Neck: Supple. Cardiovascular: Brisk cap refill to all digits. Chest: Nonlabored breathing. Abdomen: Nondistended. Psychiatric: Responds to exam. Musculoskeletal: Bilateral upper extremity functional range of motion without pain. No gross deformities. No obvious dislocations. Left lower extremity functional range of motion without pain. No gross deformities. No obvious dislocations. Right lower extremity pain with range of motion of the right hip. No tenderness to palpation over the knee, tibia, or ankle. Neurovascularly intact distally. Diagnostic Studies: X-rays and CT scan demonstrated valgus impacted right-sided femoral neck fracture. Assessment And Plan: Mr. Carrera is an 86-year-old male with a right valgus impacted femoral neck fracture. I discussed with the patient and his family at length his diagnosis as well as treatment plan. Given stable valgus impacted fracture pattern, we will proceed with closed reduction percutaneous screw fixation of the right femoral neck fracture. Risks, benefits associated with the procedure discussed with the patient and his family at length including failure to heal, leg length discrepancy and need for further surgery. They expressed understanding and elected to proceed with operative treatment. We will proceed with surgery tomorrow once cleared medically as patient has been taking Xarelto for his chronic atrial fibrillation. CV/MODL Voice ID: [id number] Report ID: [id number] MTDD
--- NOTE | 2022-05-09 21:06 | OP ---
Date of Procedure: 05/09/2022 Surgeon: Sae Lucas MD Preoperative Diagnosis: Right femoral neck fracture. Postoperative Diagnosis: Right femoral neck fracture. Procedure Performed: Reduction and percutaneous screw fixation of right femoral neck fracture. Anesthesia: General LMA. Fluids: Per Anesthesia record. Ebl: 20 cc. Complications: None. Implants: Three 7.0 mm cannulated screws, partially threaded. Indication For Procedure: Vasu is an 86-year-old male who presented to the ER with right hip pain after sustaining a fall approximately 2 weeks ago. X-rays demonstrated a valgus impacted femoral nec k fracture. I discussed with the patient and his family risks and benefits associated with operative and nonoperative treatment. They expressed understanding and elected to proceed with operative chucky tment. Description Of Procedure: After informed consent was obtained, the patient was identified in the pre operative holding area. The right lower extremity was marked. The patient was then brought back to the operating room, transferred to the operative table in supine fashion, placed under general LMA an esthesia. He was then placed on the fracture table with extremities well padded. Fluoroscopy was us ed to ensure proper reduction of the femoral neck fracture on the right side. After reduction was co nfirmed, the right lower extremity was prepped and draped in usual sterile fashion. A time-out was i nitiated. The correct patient and procedure were confirmed and identified. The patient did receive his preoperative prophylactic antibiotics. A fluoroscopy was used to find the entry point for the fi rst central screw. A screw was placed in a center-center position on the anterior portion of the fem oral neck and head. This was followed by placement of 2 pins in the superior anterior and superior p osterior position for an inverted triangle formation. The pins were placed just beneath into the sub chondral bone on the femoral head. They were measured. Outer cortex was drilled and three 85 mm 7.0 mm cannulated screws were placed with good overall fixation of the fracture and maintenance reductio n. These were then removed. Wounds were then irrigated thoroughly with normal saline. Subcutaneous tissue was approximated using 2-0 Vicryl. Skin was approximated using dominik. Sterile dressings w ere applied. The patient was awakened and transferred to PACU in stable condition. Postoperative Plan: The patient will be touchdown weightbearing on his right lower extremity. Physi anabell Therapy will be consulted to aid with mobilization. We will consult inpatient rehab for possible placement. CV/MODL Voice ID: [id number] Report ID: [id number]
[2022-05-09] MEDS: HYDROCODONE/APAP 7.5/325 MG TAB PO PRN (21:09)
--- NOTE | 2022-05-09 21:52 | PN ---
Date of Progress Note: 05/09/2022 Subjective: Patient was seen this morning for followup. He was lying in bed, not in distress. Ryan es any complaints. No chest pain. No shortness of breath. Objective: Vital Signs: Reviewed. HEENT: Unremarkable. Lungs: Clear to auscultation. Heart: Sounds normal. Abdomen: Soft. Bowel sounds normal. No guarding, rigidity, tenderness, or distention. Extremities: No leg edema. Laboratory Data: Echocardiogram shows ejection fraction of 64%, significant diastolic dysfunction pr esent, moderate pulmonary hypertension, calcified mitral wall with mitral regurgitation mild and mitr al stenosis mild along with mild tricuspid regurgitation. Impression: 1.Right hip subcapital fracture. 2.Chronic diastolic heart failure. 3.Diabetes mellitus. 4.Chronic kidney disease, stage 3b. Plan: We will go ahead and continue current medications. The patient is scheduled to have a right h ip surgery today and I did discuss details with the patient's . Postoperatively depending on how he does, one should give consideration to take him to inpatient rehab at the hospital if he qualifie s for that. The patient is at acceptable risk from surgery and details were discussed with the patie nt as well as the patient's today, who was in the waiting room. From now on this patient will be managed by hospitalist in my absence and details were discussed with hospitalist as well. JAMEE/MODL Voice ID: [id number] Report ID: [id number]
--- NOTE | 2022-05-10 01:27 | P.PN ---
Subjective Date of Service: 05/10/22 Patient is an 86-year-old gentleman who comes into the hospital for right hip replacement. Patient been seen by Dr. Vazquez & we arer taking over care today. Patient is waiting for rehab placement. Otherwise, no new complaints. Review of Systems 10-point ROS is otherwise unremarkable Physical Examination - Vital Signs Temperature: 97.6 F Blood Pressure: 112/55 Pulse: 75 Respirations: 16 Pulse Ox (%): 95 - Physical Exam General: Alert, In no apparent distress, Oriented x3 Respiratory: Clear to auscultation bilaterally, Normal air movement Cardiovascular: Normal S1 S2, Irregular heart rate/rhythm Gastrointestinal: Normal bowel sounds, Soft and benign, Non-distended, No tenderness Musculoskeletal: Tenderness Neurological: Sensation intact, Cranial nerves 3-12 intact - Studies Medications List Reviewed: Yes Assessment & Plan - Plan Assessment & Plan Impression: 1. Right hip subcapital fracture s/p ORIF 2. Chronic diastolic heart failure. 3. Diabetes mellitus. 4. Chronic kidney disease, stage 3b. 5. Afib 6. GERD Plan: -management per orthopedic surgery -PT evaluation -DVT prophylaxis -advanced diet as tolerated -strict blood pressure and blood sugar control -monitor electrolytes and blood count closely -Dc Greenberg catheter in 24 hr -pain control -continue with Lopressor and Xarelto -PPI -REHAB placement - Advance Directives Does patient have a Living Will: No Does patient have a Durable POA for Healthcare: No - Advance Directives Does patient have a Living Will: No Does patient have a Durable POA for Healthcare: No
[2022-05-10] MEDS ORDERED: CEFAZOLIN SODIUM 1 GM/VIAL ONE ×2 (01:30→05:32)
[2022-05-10] MEDS: CEFAZOLIN 1 GM in NA CHLORIDE 0.9% 50 ML IVPB SCH ×2 (01:31→05:42)
[2022-05-10] MEDS: HYDROCODONE/APAP 7.5/325 MG TAB PO PRN ×3 (01:31→19:51)
[2022-05-10] MEDS ORDERED: NA CHLORIDE 0.9% 50 ML ONE ×2 (01:39→05:34)
[2022-05-10] MEDS: LEVOTHYROXINE SOD 0.05 MG TABLET PO SCH (05:42)
[2022-05-10 06:31] LABS: Absolute Lymphocytes (CBC) 0.7 K/uL (0.7-4.9); Hematocrit 28.9 % (39.6-49.0); Lymphocytes % 7.6 % (15.3-44.8); MCV 80.3 fL (80-100)
[2022-05-10 06:35] LABS: Potassium 5.1 mmol/L (3.5-5.1)
[2022-05-10] MEDS: ENSURE SURGERY 237 ML CAN PO SCH ×2 (09:00→20:58)
[2022-05-10] MEDS: FAMOTIDINE 20 MG/2 ML VIAL IV SCH (09:28)
[2022-05-10] MEDS: ISOSORBIDE MONO SR 30 MG TAB PO SCH (09:29)
[2022-05-10] MEDS: TAMSULOSIN 0.4 MG SR CAP PO SCH (09:29)
[2022-05-10] MEDS: METOPROLOL TAR 25 MG TAB PO SCH ×2 (09:29→19:51)
[2022-05-10] MEDS: ESCITALOPRAM 20 MG TAB PO SCH (09:29)
[2022-05-10] MEDS: DIGOXIN 0.125 MG TABLET PO SCH (09:31)
[2022-05-10] MEDS: TORSEMIDE 20 MG TAB PO SCH (09:31)
[2022-05-10] MEDS: MAGNESIUM OXIDE 400 MG TAB PO SCH (09:31)
[2022-05-10] MEDS: INSULIN -REGULAR HUMAN 50 UNIT/0.5 ML ML SQ SCH ×4 (09:31→20:58)
[2022-05-10] MEDS: NA CHLORIDE 0.9% 1,000 ML IV SCH (15:59)
[2022-05-10] MEDS: MEPERIDINE HCL 25 MG/ML SYR IV PRN (22:22)
[2022-05-11] MEDS: LEVOTHYROXINE SOD 0.05 MG TABLET PO SCH (05:29)
[2022-05-11] MEDS: HYDROCODONE/APAP 7.5/325 MG TAB PO PRN ×2 (05:29→23:52)
[2022-05-11 06:16] LABS: Absolute Lymphocytes (CBC) 1.5 K/uL (0.7-4.9); Hematocrit 28.6 % (39.6-49.0); Lymphocytes % 16.3 % (15.3-44.8); MCV 80.6 fL (80-100); RBC Red Blood Cell Count 3.55 M/uL (4.33-5.43)
[2022-05-11 06:23] LABS: Potassium 4.6 mmol/L (3.5-5.1)
[2022-05-11] MEDS: FAMOTIDINE 20 MG/2 ML VIAL IV SCH (08:36)
[2022-05-11] MEDS: INSULIN -REGULAR HUMAN 50 UNIT/0.5 ML ML SQ SCH ×4 (08:37→20:52)
[2022-05-11] MEDS: TORSEMIDE 20 MG TAB PO SCH (08:38)
[2022-05-11] MEDS: MAGNESIUM OXIDE 400 MG TAB PO SCH (08:38)
[2022-05-11] MEDS: TAMSULOSIN 0.4 MG SR CAP PO SCH (08:39)
[2022-05-11] MEDS: ESCITALOPRAM 20 MG TAB PO SCH (08:39)
[2022-05-11] MEDS: ISOSORBIDE MONO SR 30 MG TAB PO SCH (08:39)
[2022-05-11] MEDS: METOPROLOL TAR 25 MG TAB PO SCH (08:39)
[2022-05-11] MEDS: DIGOXIN 0.125 MG TABLET PO SCH (08:39)
[2022-05-11] MEDS: ENSURE SURGERY 237 ML CAN PO SCH ×2 (08:40→20:53)
[2022-05-11] MEDS ORDERED: PANTOPRAZOLE 40MG TABLET PO ONE (11:00)
[2022-05-11] MEDS ORDERED: MAGNES/ALUMIN/SIMET 30ML UCUP PO ONE (11:00)
[2022-05-11] MEDS: NA CHLORIDE 0.9% 1,000 ML IV SCH (12:13)
[2022-05-11] MEDS: DOCUSATE NA 100 MG CAP PO PRN (12:13)
[2022-05-11] MEDS: ACETAMINOPHEN 325 MG TABLET PO PRN (12:43)
[2022-05-11] MEDS ORDERED: METOPROLOL TARTRATE 5 MG/5 ML INJ IV STA (17:07)
[2022-05-11] MEDS: METOPROLOL TAR 50 MG TAB PO SCH (17:38)
[2022-05-12] MEDS: ACETAMINOPHEN 325 MG TABLET PO PRN ×3 (02:35→22:54)
[2022-05-12 03:44] LABS: Hematocrit 26.6 % (39.6-49.0)
[2022-05-12] MEDS: METOPROLOL TAR 50 MG TAB PO SCH ×2 (04:48→17:04)
--- NOTE | 2022-05-12 07:02 | P.PN ---
Date of Service: 05/11/22 Subjective patient is feeling better. Patient had a short run of atrial fibrillation with rapid ventricular response. Rate is better controlled at this time. Patient's strength is improved. Patient is having some reflux and was given Protonix. Tolerating diet and working with physical therapy. Awaiting for rehab placement. Review of Systems 10-point ROS is otherwise unremarkable Physical Examination - Vital Signs Reviewed - Physical Exam General: Alert, In no apparent distress Respiratory: Clear to auscultation bilaterally, Normal air movement Cardiovascular: irregular rate/rhythm, Normal S1 S2 Gastrointestinal: Normal bowel sounds, No tenderness Musculoskeletal: minimal tenderness of the right hip but otherwise good range of motion Neurological: No focal deficits Assessment & Plan Impression: 1. Right hip subcapital fracture s/p ORIF 2. Chronic diastolic heart failure. 3. Diabetes mellitus. 4. Chronic kidney disease, stage 3b. 5. Afib 6. GERD Plan: -management per orthopedic surgery -PT evaluation -DVT prophylaxis -advanced diet as tolerated -strict blood pressure and blood sugar control -monitor electrolytes and blood count closely -Dc Greenberg catheter in 24 hr -pain control -continue with Lopressor and Xarelto -PPI -REHAB placement - Advance Directives Does patient have a Living Will: No Does patient have a Durable POA for Healthcare: No
[2022-05-12] MEDS: ISOSORBIDE MONO SR 30 MG TAB PO SCH (08:56)
[2022-05-12] MEDS: PANTOPRAZOLE 40MG TABLET PO SCH (08:56)
[2022-05-12] MEDS: TAMSULOSIN 0.4 MG SR CAP PO SCH (08:56)
[2022-05-12] MEDS: DOCUSATE NA 100 MG CAP PO SCH ×2 (08:56→21:51)
[2022-05-12] MEDS: ESCITALOPRAM 20 MG TAB PO SCH (08:56)
[2022-05-12] MEDS: RIVAROXABAN 15 MG TABLET PO SCH (08:56)
[2022-05-12] MEDS: TORSEMIDE 20 MG TAB PO SCH (08:56)
[2022-05-12] MEDS: MAGNESIUM OXIDE 400 MG TAB PO SCH (08:57)
[2022-05-12] MEDS: DIGOXIN 0.125 MG TABLET PO SCH (08:57)
[2022-05-12] MEDS: INSULIN -REGULAR HUMAN 50 UNIT/0.5 ML ML SQ SCH ×4 (08:57→21:50)
[2022-05-12] MEDS: LEVOTHYROXINE SOD 0.05 MG TABLET PO SCH (08:57)
[2022-05-12] MEDS: ENSURE SURGERY 237 ML CAN PO SCH ×2 (08:58→21:00)
[2022-05-12] MEDS: NA CHLORIDE 0.9% 1,000 ML IV SCH (08:58)
--- NOTE | 2022-05-12 16:49 | P.PN ---
Subjective Date of Service: 05/12/22 No acute events overnight. He reports that his pain is well-controlled. He is pending placement to inpatient rehab. Review of Systems 10-point ROS is otherwise unremarkable Musculoskeletal: Leg Pain (right hip, minimal) Physical Examination - Vital Signs Temperature: 98.5 F Blood Pressure: 122/59 Pulse: 93 Respirations: 14 Pulse Ox (%): 97 - Physical Exam General: Alert, In no apparent distress, Oriented x3 HEENT: Atraumatic, Mucous membr. moist/pink, EOMI, Sclerae nonicteric Neck: JVD not distended Respiratory: Clear to auscultation bilaterally, Normal air movement Cardiovascular: No edema, Regular rate/rhythm, Normal S1 S2, No gallops, No rubs, No murmurs Gastrointestinal: Normal bowel sounds, Soft and benign, Non-distended, No tenderness, No rebound, No guarding Musculoskeletal: Other (right hip surgical site is clean, dry, and intact) Integumentary: No rashes Neurological: Normal speech, Sensation intact, Normal affect - Studies Medications List Reviewed: Yes Assessment And Plan - Plan # Acute Right Subcapital Femur Fracture s/p Closed Reduction Percutaneous Right Femoral Neck Fracture Screw Fixation # Osteoporosis - Post-Op Day #3 - Orthopedic Surgery consulted - recommendations appreciated - PT consulted, pending inpatient rehab placement - Appreciate CM assistance - Pain control - VTE prophylaxis per Ortho # KDIGO Stage I Acute Kidney Injury on Chronic Kidney Disease Stage III (resolved) - Creatinine = 2.19 -> 1.27 -> 1.27 -> 1.17 - Monitor creatinine and urine output - If worsening, obtain renal ultrasound - Renally dose medications # Hyperglycemia in Type II Diabetes Mellitus - Correction scale insulin # Chronic Compensated Diastolic Heart Failure # Coronary Artery Disease # Moderate Pulmonary Hypertension - Continue home metoprolol, torsemide # Chronic Atrial Fibrillation - Continue home metoprolol, digoxin, rivaroxaban # Hypertension - Continue home metoprolol, Imdur # Hypothyroidism - Continue home levothyroxine # Benign Prostatic Hyperplasia - Continue home tamsulosin # Gastroesophageal Reflux Disease - Continue home pantoprazole Naldo Rodriguez M.D.
[2022-05-12 22:20] VITALS: O2SAT 97
[2022-05-13 04:25] LABS: Hematocrit 27.5 % (39.6-49.0)
[2022-05-13] MEDS: HYDROCODONE/APAP 7.5/325 MG TAB PO PRN (05:10)
[2022-05-13] MEDS: NA CHLORIDE 0.9% 1,000 ML IV SCH (05:10)
[2022-05-13 06:20] VITALS: TEMP 98.2
[2022-05-13] MEDS: METOPROLOL TAR 50 MG TAB PO SCH (06:24)
--- NOTE | 2022-05-13 06:30 | P.DS ---
Admission Date: 05/07/22 Discharge Date: 05/13/22 Disposition: TRANSFER TO INPATIENT REHAB Discharge Condition: GOOD Reason for Admission: Right Hip Fracture Consultations: 1. Orthopedic Surgery Procedures: - 05/09/2022 = Closed Reduction Percutaneus Screw Fixation Right Femoral Neck Fracture Hospital Course: DIAGNOSES: # Acute Right Subcapital Femur Fracture s/p Closed Reduction Percutaneous Right Femoral Neck Fracture Screw Fixation # Osteoporosis # KDIGO Stage I Acute Kidney Injury on Chronic Kidney Disease Stage III (resolved) # Hyperglycemia in Type II Diabetes Mellitus # Chronic Compensated Diastolic Heart Failure # Coronary Artery Disease # Moderate Pulmonary Hypertension # Chronic Atrial Fibrillation # Hypertension # Hypothyroidism # Benign Prostatic Hyperplasia # Gastroesophageal Reflux Disease HOSPITAL COURSE: Mr. Vasu Carrera is a pleasant 86 year old male with a past medical history significant for type II diabetes mellitus, chronic diastolic heart failure, coronary artery disease, moderate pulmonary hypertension, chronic atrial fibrillation, hypertension, hypothyroidism, and benign prostatic hyperplasia who was admitted to the [facility] on 05/07/2022 for a right hip fracture. He was admitted to the Medicine service. Orthopedic Surgery was consulted and he was evaluated by Dr. Lucas. On 05/09/2022, he underwent a closed reduction percutaneus screw fixation right femoral neck fracture. He tolerated the procedure well, without any apparent complications. Physical Therapy was consulted and it was recommended that he be discharged to an inpatient rehabilitation facility for continued care. With the assistance of case management, he was accepted to [facility]. On 05/13/2022, he was seen on morning rounds and deemed medically stable for discharge. He was given the opportunity to ask questions and reported no further questions. Furthermore, all questions were answered to the best of my ability. A copy of this discharge summary will be sent to the above providers to facilitate continuity of care. Today, I personally spent 20 minutes on his case, of which greater than 50% of the time was spent in patient education, counseling, and coordination of care as described above. - Physical Exam General: Alert, In no apparent distress, Oriented x3 HEENT: Atraumatic, Mucous membr. moist/pink, EOMI, Sclerae nonicteric Neck: JVD not distended Respiratory: Clear to auscultation bilaterally, Normal air movement Cardiovascular: No edema, Regular rate/rhythm, Normal S1 S2, No gallops, No rubs, No murmurs Gastrointestinal: Normal bowel sounds, Soft and benign, Non-distended, No tenderness, No rebound, No guarding Musculoskeletal: Other (right hip surgical site is clean, dry, and intact) Integumentary: No rashes Neurological: Normal speech, Sensation intact, Normal affect Vital Signs/Physical Exam: Temp Pulse Resp BP Pulse Ox 98.2 F 65 15 119/59 L 96 05/13/22 04:00 05/13/22 06:24 05/13/22 05:10 05/13/22 06:24 05/13/22 05:10 Laboratory Data at Discharge: WBC 9.10 K/uL (4.3-10.9) 05/11/22 05:48 Hgb 8.9 g/dL (13.6-17.9) L 05/13/22 04:03 Hct 27.5 % (39.6-49.0) L 05/13/22 04:03 Plt Count 253 K/uL (152-406) 05/11/22 05:48 PT 15.8 SECONDS (9.5-12.5) H 05/07/22 13:48 INR 1.44 05/07/22 13:48 Sodium 135 mmol/L (136-145) L 05/11/22 05:48 Potassium 4.6 mmol/L (3.5-5.1) 05/11/22 05:48 BUN 39 mg/dL (7-18) H 05/11/22 05:48 Creatinine 1.17 mg/dL (0.70-1.30) 05/11/22 05:48 Glucose 250 mg/dL (74-106) H 05/11/22 05:48 Magnesium 2.9 mg/dL (1.6-2.4) H 05/07/22 13:48 Total Bilirubin 0.6 mg/dL (0.2-1.0) 05/07/22 13:48 AST 8 U/L (15-37) L 05/07/22 13:48 ALT 13 U/L (16-61) L 05/07/22 13:48 Alkaline Phosphatase 105 U/L (45-117) 05/07/22 13:48 Home Medications: RX: Dapagliflozin Propanediol [Farxiga] 5 mg PO DAILY 05/07/22 RX: Digoxin [Lanoxin*] 0.125 mg PO DAILY 05/07/22 RX: Escitalopram Oxalate 10 mg PO DAILY 05/07/22 RX: Isosorbide Mononitrate [Isosorbide Mononitrate ER] 30 mg PO DAILY 05/07/22 RX: Levothyroxine Sodium [Levothyroxine] 50 mcg PO DAILY 05/07/22 RX: Linagliptin [Tradjenta] 5 mg PO DAILY 05/07/22 RX: Metoprolol Tartrate 50 mg PO BID 05/07/22 RX: Pantoprazole [Protonix Tab*] 40 mg PO DAILY 05/07/22 RX: Rivaroxaban [Xarelto*] 15 mg PO DAILY 05/07/22 RX: Rosuvastatin Calcium 5 mg PO DAILY 05/07/22 RX: Tamsulosin [Flomax*] 0.4 mg PO DAILY 05/07/22 RX: Torsemide 20 mg PO DAILY 05/07/22 RX: Tramadol HCl [Ultram] 50 mg PO PRN PRN 05/07/22 RX: lisinopriL [Lisinopril] 5 mg PO DAILY 05/07/22 RX: Docusate [Colace Cap*] 100 mg PO BID cap 05/13/22 Diet: AHA Activity: Fall precautions Followup: Sean Vazquez MD [Primary Care Provider] - 1-2 Weeks Sae Lucas MD [ACTIVE - CAN ADMIT] - Time spent managing pt's care (in minutes): 20
--- NOTE | 2022-05-13 07:35 | P.PN ---
Subjective Date of Service: 05/12/22 Chief Complaint: s/p CRPP right hip Subjective: Working w/ PT pain controlled; patient resting in bed Physical Examination - Vital Signs Temperature: 98.2 F Blood Pressure: 119/59 Pulse: 65 Respirations: 15 Pulse Ox (%): 96 - Physical Exam General: Alert, In no apparent distress Musculoskeletal: Other (RLE: dressing c/d/i; NVI distally) - Studies Medications List Reviewed: Yes Assessment And Plan - Plan Vasu is an 86 yo male s/p CRPP right femoral neck fracture -continue to mobilize with PT; TDWB RLE -await IPR approval -DVT prophylaxis: on Xarelto for chronic afib
[2022-05-13] MEDS: TAMSULOSIN 0.4 MG SR CAP PO SCH (07:53)
[2022-05-13] MEDS: MAGNESIUM OXIDE 400 MG TAB PO SCH (07:53)
[2022-05-13] MEDS: PANTOPRAZOLE 40MG TABLET PO SCH (07:53)
[2022-05-13] MEDS: RIVAROXABAN 15 MG TABLET PO SCH (07:53)
[2022-05-13] MEDS: DOCUSATE NA 100 MG CAP PO SCH (07:53)
[2022-05-13] MEDS: TORSEMIDE 20 MG TAB PO SCH (07:53)
[2022-05-13] MEDS: ISOSORBIDE MONO SR 30 MG TAB PO SCH (07:54)
[2022-05-13] MEDS: LEVOTHYROXINE SOD 0.05 MG TABLET PO SCH (07:54)
[2022-05-13] MEDS: DIGOXIN 0.125 MG TABLET PO SCH (07:54)
[2022-05-13] MEDS: INSULIN -REGULAR HUMAN 50 UNIT/0.5 ML ML SQ SCH (07:54)
[2022-05-13] MEDS: ENSURE SURGERY 237 ML CAN PO SCH (07:55)
[2022-05-13 07:56] VITALS: BP 121/58
[2022-05-13] MEDS: ESCITALOPRAM 20 MG TAB PO SCH (07:58)
== END 2022-05-13 09:00 | DRG 481 ==
LOC: ER 13:13 → ERHOLD 14:49 → 2ND 17:51
PROVIDERS: ADMIT Hospitalist; ATTEND Internal Medicine
PROC: 0QS604Z Reposition Right Upper Femur with Internal Fixation Device, Open Approach (ICD-10-PCS; principal; 2022-05-09 12:00)
DX: S72.011A Unspecified intracapsular fracture of right femur, initial encounter for closed fracture (principal); E87.1 Hypo-osmolality and hyponatremia; I13.0 Hypertensive heart and chronic kidney disease with heart failure and stage 1 through stage 4 chronic kidney disease, or unspecified chronic kidney disease; N17.9 Acute kidney failure, unspecified; I50.32 Chronic diastolic (congestive) heart failure; I48.19 Other persistent atrial fibrillation; Z79.01 Long term (current) use of anticoagulants; I27.20 Pulmonary hypertension, unspecified; D63.1 Anemia in chronic kidney disease; E11.22 Type 2 diabetes mellitus with diabetic chronic kidney disease; Z79.4 Long term (current) use of insulin; I11.0 Hypertensive heart disease with heart failure; N18.32 Chronic kidney disease, stage 3b; W19.XXXA Unspecified fall, initial encounter; E87.5 Hyperkalemia; I25.10 Atherosclerotic heart disease of native coronary artery without angina pectoris; K21.9 Gastro-esophageal reflux disease without esophagitis; M19.90 Unspecified osteoarthritis, unspecified site; K57.90 Diverticulosis of intestine, part unspecified, without perforation or abscess without bleeding; E03.9 Hypothyroidism, unspecified; G47.00 Insomnia, unspecified
CPT/HCPCS: 36415; 70450; 71045; 71250; 72100; 72125; 72170; 76000; 80048; 80076; 82947; 83735; 83880; 84484; 85014; 85018; 85025; 85610; 86850; 86900; 86901; 87811; 93005; 93306; 94010; 96360; 96361; 97116; 97161; 97530; 99285; J0171; J0690; J1100; J1170; J1815; J2001; J2175; J2405; J2704; J3010; J7030; U0003

== ENCOUNTER 2022-07-05 17:45 | Emergency (ER) | payer OTHER ==
--- OUTSIDE RECORDS SUMMARY | 2022-07-05 18:00 | XMS REPORT | Continuity of Care Document ---
:1935 Author Organization [facility] t Address [address] [place] [address] Care Team Providers Name Role Phone ANDRES [...] Attending Clinician Morgan Lazar MD Attending Clinician Addison PROFESSIONAL NURSING TUTOR, Fahad Attending Clinician FAHAD GRIGGS Attending Clinician Unavailable Bhavya MCDOWELL, Bonny Attending Clinician Veronica PROFESSIONAL NURSING TUTOR, Marlena R Attending Clinician GARETT ARMAS Attending Clinician Unavailable Doctor Unassigned, [place] Attending Clinician Unavailable Gramm BRODIE, Donna A Attending Clinician GRAMM DONNA A Attending Clinician Unavailable CHAITANYA HATCH Admitting Clinician Unavailable Chaitanya Hatch MD Admitting Clinician MALIK GRANADOS Admitting Clinician Unavailable YOVANI BAUTISTA Admitting Clinician Unavailable CARIN SOLIS Admitting Clinician Unavailable JESSICA OWEN Admitting Clinician Unavailable Jessica Owen DO Admitting Clinician MONICO MARIEE Admitting Clinician Unavailable Morgan Lazar MD Admitting Clinician Garett Armas MD Admitting Clinician [...] fibrillati fibrill[place] Other Other Disease Active Univers [...] y of on with on with 00:00: [place] RVR RVR 00 Medical Branch Atypical Atypical Disease Active Unive rs chest pain chest pain 2-04 it y of 00:00: 00 Medical Branch Coronary Coronary Disease Active Unive rs artery artery 2-04 ity of disease disease 00:00: [place] involving involving 00 Medi [place]ell [place] Branch 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 Unive rs (coronary (coronary 2-04 ity of artery artery 00:00: [place] bypass bypass 00 Medical graft) graft) Branch Essential Essential Disease Active Uni vers hypertensi hypertensi 2-04 it y of on on 00:00: [place] Medical Branch Dyslipidem Dyslipidem Disease Active U nivers ia ia 2-04 ity of 00:00: [place] Medical Branch Chronic Chronic Disease Active Univers [...] carotid carotid 00 Medical arteries arteries Branch HF (heart HF (heart Disease Active Uni vers failure) failure) 2-03 ity of 00:00: [place] 00 Medical Branch Acute Acute Disease Active 2016-05 Univers exacerbati exacerbati 2-04 it y of on of CHF on of CHF 00:00: [place] s (congestiv (congestiv 00 Me dical e heart e heart Branch failure) failure) Obesity Obesity Disease Active 2017-0 Univers (BMI (BMI 3-22 ity of 30-39.9) 30-39.9) 00:00: [place] 00 Medical Branch Headache Headache Disease Active 2015-05 Unive rs 2-12 ity of 00:00: [place] 00 Medical Branch Transient Transient Disease Active 2015-05 Uni vers alteration alteration 2-12 it y of of of 00:00: [place] awareness awareness 00 [facility] Branch Allergies, Adverse Reactions, Alerts Allergy [...] reaction 00 Medica l ics) s Branch morphine morphine Active Unknown Commo n Spirit - [facility] Social History Social Habit Start Date Stop Date Quantity Comments Source History of [facility] - Tobacco Use [facility] Sex Assigned At Common Sp sosa - [facility] History SDOH Food 2022-02-12 2022-02-12 1 Univers ity of Worry 00:00:00 00:00:00 [facility] History SDOH Food 2022-02-12 2022-02-12 1 Univers ity of Scarcity 00:00:00 00:00:00 [place] [facility] [place] History SDOH 2022-02-12 2022-02-12 2 University o f Transport Med 00:00:00 00:00:00 [place] Medic al Branch History SDOH 2022-02-12 2022-02-12 2 University o f Transport Non-Med 00:00:00 00:00:00 [place] Branch Exposure to 2022-01-13 2022-01-23 Not sure [place] of SARS-CoV-2 00:00:00 05:03:00 [facility] (event) [place] Alcohol intake 2022-01-23 2022-01-23 0 /d [facility] 00:00:00 00:00:00 [facility] Tobacco use and 2017-10-06 2017-10-06 Smokeless tobacco Un iversity of exposure 00:00:00 00:00:[address] [facility] Smoking Status Start Date Stop Date Source Never Smoker [facility] - [facility] Ex-smoker 2017-10-06 00:00:00 2017-10-06 00:00:00 [facility] Medications Ordered Filled Start Stop Current Ordering Indication Dosage Frequency Signature Comments Components Source Medication Medication Date Date Medication? Clinician (SIG) Name Name rosuvastati Yes 5mg 5 mg, Unive rs n (CRESTOR) 02-12 Oral, QHS, it y of tablet 5 mg 02:00: First dose [place] [address] [facility] 02/11/22 at Branch 2100, Until Discontinu ed, Routine rivaroxaban 2022- No [id number] 20mg Take 1 Uni vers (XARELTO) 02-12 tablet by ity of 20 mg 00:00: 04:59 mouth in [place] tablet 00 :00 the Medical morning. Branch Indication s: prevention of thromboemb olism in paroxysmal atrial fibrillati on rivaroxaban 2022- No [id number] 20mg Take 1 Uni vers (XARELTO) 02-12 tablet by ity of 20 mg 00:00: 04:59 mouth in [place] tablet 00 :00 the Medical morning. Branch Indication s: prevention of thromboemb olism in paroxysmal atrial fibrillati on levothyroxi 2021- No [id number] 50ug Take 1 Univers ne 50 mcg 02-12 tablet by ity of tablet 00:00: 05:59 mouth [place] 00 :00 every Medical morning [place] for 90 days. pantoprazol 0 2021- No [id number] 40mg Take 1 Univers e 40 mg EC 02-12 tablet by ity of tablet 00:00: 05:59 mouth in [place] 00 :00 the Medical morning Branch for 90 days. levothyroxi 2021- No [id number] 50ug Take 1 Univers ne 50 mcg 02-12 tablet by ity of tablet 00:00: 05:59 mouth [place] 00 :00 every Medical morning Branch for 90 days. pantoprazol 2021- No [id number] 40mg Take 1 Univers e 40 mg EC 02-12 tablet by ity of tablet 00:00: 05:59 mouth in [place] 00 :00 the Medical morning Branch for 90 days. ALPRAZOLAM Yes 1mg Take 1 mg [place] (XANAX XR 9-20 by mouth ity of ORAL) 19:05: daily. [place] 35 Medical Branch Ascorbic Yes 1000mg Take 1,000 [...] tablets Q8H as needed for pain glimepiride Yes 1mg Take 1 mg U nivers 1 mg tablet 9-20 by mouth ity of 19:05: in the [place] [address] morning Medical and 1 mg Branch at noon and 1 mg in the evening. Take with meals. gabapentin Yes 100mg Take 100 [place] 100 mg 9-20 mg by ity of capsule 19:05: mouth 2 [place] [address] (two) Medical times Branch daily. torsemide Yes Take by Unive rs 100 mg 9-20 mouth. ity of tablet 19:05: [place] [address] Medical Branch lisinopriL Yes 10mg Take 10 mg U nivers 10 mg 9-20 by mouth ity of tablet 19:05: in the [place] [address] morning. Medical Branch isosorbide Yes 30mg Take 30 mg U nivers mononitrate 9-20 by mouth. ity of 30 mg 24 hr 19:05: [place] [address] Medical Branch ALPRAZOLAM Yes 1mg Take 1 mg [place] (XANAX XR 9-20 by mouth ity of ORAL) 19:05: daily. [place] [address] Medical Branch Ascorbic Yes 1000mg Take 1,000 U nivers Acid 1,000 9-20 mg by ity of mg TbSR 19:05: mouth 2 [place] [address] (two) Medical times Branch daily. Cholecalcif Yes [...] mouth [place] 35 daily. Medical Branch tamsulosin 0 Yes .4mg Take 0.4 Uni vers 0.4 mg 24 9-20 mg by ity of hr capsule 19:05: mouth [place] [address] daily. Medical Branch traMADOL 50 0 Yes 100mg Take 100 U nivers mg tablet 9-20 mg by ity of 19:05: mouth [place] 35 every 8 Medical (eight) Branch hours as needed for Pain (scale 4-6) or Pain (scale 7-10). May take 1 to 2 tablets Q8H as needed for pain glimepiride 0 Yes 1mg Take 1 mg U nivers 1 mg tablet 9-20 by mouth ity of 19:05: in the [place] [address] morning Medical and 1 mg Branch at noon and 1 mg in the evening. Take with meals. gabapentin 0 Yes 100mg Take 100 [place] 100 mg 9-20 mg by ity of capsule 19:05: mouth 2 [place] 35 (two) Medical times Branch daily. torsemide 0 Yes Take by [facility] rs 100 mg 9-20 mouth. ity of tablet 19:05: [place] [address] Medical Branch lisinopriL 0 Yes 10mg Take 10 mg U nivers 10 mg 9-20 by mouth ity of tablet 19:05: in the [place] [address] morning. Medical Branch isosorbide 0 Yes 30mg Take 30 mg U nivers mononitrate 9-20 by mouth. ity of 30 mg 24 hr 19:05: [place] tablet 35 Medical Branch NaCl 0.9% 2021- No 500mL at 250 Univ ers (NS) bolus 02-11 09-20 mL/hr, 500 it y of infusion 17:45: 17:43 mL, IV [place] 500 mL 00 :48 Piggyback, Medical ONCE, 1 Branch dose, On Thu02/11/22 at 1245, STAT nitroglycer 0 Yes .3mg 0.3 mg, Uni vers in - Sublingual ity of (NITROSTAT) 16:59: , Q5MIN [place] sublingual 43 PRN, Medical tablet 0.3 Starting Branc h mg on Thu02/11/22 at 1159, Until Discontinu ed, Routine, Chest pain levothyroxi 2021-0 202- No 50ug Take 50 [place] ne 50 mcg 9-20 09-20 mcg by ity of tablet 16:27: 00:00 mouth [place] 03 :00 every Medical morning. Branch pantoprazol No 40mg Take 40 mg Univers e 40 mg EC 02-11 by mouth ity of tablet 16:27: 00:00 daily. [place] 03 :00 Medical Branch rosuvastati No 5mg Take 5 mg Univers n 5 mg 02-11 by mouth ity of tablet 16:27: 00:00 at [place] 03 :00 bedtime. Medical Branch rivaroxaban 2021- No 20mg Take 20 mg Univers (XARELTO) 02-11 by mouth. ity of 20 mg 16:27: 00:00 [place] tablet 03 :00 Medical Branch aspirin Yes 81mg 81 mg, Univers chewable 02-11 Oral, ity of tablet 81 14:00: DAILY, [place] mg 00 First dose Medical on [facility] 02/11/22 at 0900, Until Discontinu ed, Routine rivaroxaban Yes 20mg 20 mg, Univ ers (XARELTO) 02-11 Oral, ity of tablet 20 14:00: DAILY, [place] mg 00 First dose Medical on [facility] 02/11/22 at 0900, Until Discontinu ed, Routine pantoprazol Yes 40mg 40 mg, Univ ers e 02-11 Oral, ity of (PROTONIX) 14:00: DAILY, [place] EC tablet 00 First dose Medi anabell 40 mg on [facility] 02/11/22 at 0900, Until Discontinu ed, Routine digoxin Yes 125ug 125 mcg, Unive rs (LANOXIN) 02-11 Oral, ity of tablet 125 14:00: DAILY, [place] mcg 00 First dose Medical on [facility] 02/11/22 at 0900, Until Discontinu ed, Routine aspirin No 325mg 325 mg, Unive rs tablet 325 02-11 Oral, ity of mg 14:00: 07:17 DAILY, [place] 00 :21 First dose Medical on [facility] 02/11/22 at 0900, Until Discontinu ed, Routine Sliding Yes Subcutaneo Univ ers Scale - us, TID ity of Insulin - 13:00: MEALS+HS, [place] Lispro 00 First dose Medical (HumaLOG) + on Thu [facility] 02/11/22 at Testing 0800, Until Discontinu ed, Routine levothyroxi Yes 50ug 50 mcg, Uni vers ne 02-11 Oral, ity of (SYNTHROID) 11:00: QAM-0600, [place] tablet 50 00 First dose Medi anabell mcg on Thu Branch 02/11/22 at 0600, Until Discontinu ed, Routine NaCl 0.9% 2021- No 500mL at 999 [facility] ers (NS) bolus 02-1120 mL/hr, 500 it y of infusion 08:45: 10:28 mL, IV [place] 500 mL 00 :00 Piggyback, Medical ONCE, 1 Branch dose, On Thu02/11/22 at 0345, STAT acetaminoph Yes 650mg 650 mg, Un [place] en 02-11 Oral, ity of (TYLENOL) 05:16: Q6HPRN, [place] tablet 650 18 Starting Medic al mg on Thu Branch 02/11/22 at 0016, Until Discontinu ed, Routine, Pain (scale 1-3) iopamidol 2021- No [id number] 80mL 80 mL, U nivers (ISOVUE 02-11 Intravenou ity o f 370-500 mL) 02:00: 02:00 s, ONCE, 1 [place] injection 00 :00 dose, On Medica l 80 mL [facility] 02/10/22 at 2100, Routine FUROSEMIDE 2021- No 40mg Take 40 mg Univers ORAL 02-11 by mouth 2 ity of 01:07: 00:00 (two) [place] 48 :00 times Medical daily. Branch NaCl 0.9% 2021- No 250mL at 100 [facility] ers (NS) IV 02-11 09-20 mL/hr, IV ity of infusion 00:45: 15:06 Infusion, [place] 250 mL 00 :15 CONTINUOUS Medical , Starting Branch on 02/10/22 at 1945, Until Thu02/11/22 at 1006, Routine nitroglycer Yes [id number] .3mg Place 1 Univers in 0.3 mg 9-20 tablet ity of sublingual 00:00: under the [place] tablet 00 tongue Medical every 5 Branch (five) minutes as needed for Chest pain for up to 90 doses. nitroglycer Yes [id number] .3mg Place 1 Univers in 0.3 mg 9-20 tablet ity of sublingual 00:00: under the [place] tablet 00 tongue Medical every 5 Branch (five) minutes as needed for Chest pain for up to 90 doses. rosuvastati 2021- No [id number] 5mg Take 1 Univers n 5 mg 9-20 12-20 tablet by ity of tablet 00:00: 05:59 mouth at [place] 00 :00 bedtime Medical for 90 Branch days. rosuvastati 2021- No [id number] 5mg Take 1 Univers n 5 mg 9-20 12-20 tablet by ity of tablet 00:00: 05:59 mouth at [place] 00 :00 bedtime Medical for 90 Branch days. FENTanyl PF 2021- No 25ug 25 mcg, [place] (SUBLIMAZE 02-10 Slow IV ity o f (PF)) 23:45: 00:12 Push, [place] injection 00 :00 ONCE, 1 Medical 25 mcg dose, On Branch 02/10/22 at 1845, STAT furosemide 2021- No 40mg 40 mg, IV U nivers (LASIX) 01-23 Push, ity of injection 11:30: 11:26 ONCE, 1 [place] 40 mg 00 :00 dose, On Medical [place] 01/23/22 Branch at 0630, JOCELYN nirmatrelvi Yes [id number] 2{tbl} Take 2 Univers r-ritonavir 01-23 [id number] tablets by i ty of (PAXLOVID, 00:00: mouth in [place] EUA,) 00 the Medical 150-100 mg morning Branch tablet and 2 tablets in the evening. nirmatrelvi 2021- No [id number] 2{tbl} Take 2 Univers r-ritonavir 01-23 [id number] tablets by ity of (PAXLOVID, 00:00: 00:00 [place] EUA,) 00 :00 the Medical 150-100 mg morning Branch tablet and 2 tablets in the evening. ibuprofen 2021- No 600mg 600 mg, Uni vers (IBU) 01-06-15 Oral, ity of tablet 600 11:30: 11:23 ONCE, 1 [place] mg 00 :00 dose, On Medical Mon Branch 01/06/22 at 0630, JOCELYN iopamidol 2021- No [id number] 70mL 70 mL, Univers (ISOVUE 12-18 Intravenou ity o f 370-500 mL) 01:30: 01:30 s, ONCE, 1 [place] injection 00 :00 dose, On Medica l 70 mL Tue Branch 12/17/21 at 2030, Routine ALPRAZOLAM Yes 1mg Take 1 mg [place] (XANAX XR 7-01 by mouth ity of ORAL) 12:24: daily. [place] [address] Medical Branch Ascorbic 0 Yes 1000mg Take 1,000 U nivers Acid 1,000 7-01 mg by ity of mg TbSR 12:24: mouth 2 [place] 33 (two) Medical times Branch daily. Cholecalcif [...] mcg by ity of tablet 12:24: mouth [place] 33 every Medical morning. Branch magnesium 0 Yes 400mg Take 400 Uni vers oxide 400 7-01 mg by ity of mg tablet 12:24: mouth [place] 33 daily. Medical Branch pantoprazol 0 Yes 40mg Take 40 mg Univers e 40 mg EC 7-01 by mouth ity o f tablet 12:24: daily. [place] [address] Medical Branch tamsulosin 0 Yes .4mg Take 0.4 Uni vers 0.4 mg 24 7-01 mg by ity of hr capsule 12:24: mouth [place] [address] daily. Medical Branch traMADOL 50 Yes 100mg Take 100 U nivers mg tablet 7-01 mg by ity of 12:24: mouth [place] 33 every 8 Medical (eight) Branch hours as needed for Pain (scale 4-6) or Pain (scale 7-10). May take 1 to 2 tablets Q8H as needed for pain glimepiride 0 Yes 1mg Take 1 mg U nivers 1 mg tablet 7-01 by mouth 2 it y of 12:24: (two) [place] [address] times Medical daily with Branch meals. gabapentin Yes 100mg Take 100 [place] 100 mg 7-01 mg by ity of capsule 12:24: mouth 2 [place] [address] (two) Medical times Branch daily. rosuvastati Yes 5mg Take 5 mg U nivers n 5 mg 7-01 by mouth ity of tablet 12:24: at [place] [address] bedtime. Medical Branch FUROSEMIDE Yes 40mg Take 40 mg U nivers ORAL 7-01 by mouth 2 ity of 12:24: (two) [place] [address] times Medical daily. Branch ALPRAZOLAM Yes 1mg Take 1 mg [place] (XANAX XR 7-01 by mouth ity of ORAL) 12:24: daily. [place] [address] Medical Branch Ascorbic Yes 1000mg Take 1,000 U nivers Acid 1,000 7-01 mg by ity of mg TbSR 12:24: mouth 2 [place] [address] (two) Medical times Branch daily. Cholecalcif Yes [...] mcg by ity of tablet 12:24: mouth [place] [address] every Medical morning. Branch magnesium 0 Yes 400mg Take 400 Uni vers oxide 400 7-01 mg by ity of mg tablet 12:24: mouth [place] [address] daily. Medical Branch pantoprazol 0 Yes 40mg Take 40 mg Univers e 40 mg EC 7-01 by mouth ity o f tablet 12:24: daily. [place] [address] Medical Branch tamsulosin 2021-0 Yes .4mg Take 0.4 Uni vers 0.4 mg 24 7-01 mg by ity of hr capsule 12:24: mouth [place] [address] daily. Medical Branch traMADOL 50 2021-0 Yes 100mg Take 100 U nivers mg tablet 7-01 mg by ity of 12:24: mouth [place] [address] every 8 Medical (eight) Branch hours as needed for Pain (scale 4-6) or Pain (scale 7-10). May take 1 to 2 tablets Q8H as needed for pain glimepiride 2021-0 Yes 1mg Take 1 mg U nivers 1 mg tablet 7- by mouth 2 it y of 12:24: (two) [place] [address] times Medical daily with Branch meals. gabapentin 0 Yes 100mg Take 100 [place] 100 mg 7-01 mg by ity of capsule 12:24: mouth 2 [place] [address] (two) Medical times [place] daily. rosuvastati 0 Yes 5mg Take 5 mg U nivers n 5 mg 7-01 by mouth ity of tablet 12:24: at [place] [address] bedtime. Medical Branch FUROSEMIDE 2021-0 Yes 40mg Take 40 mg U nivers ORAL 7-01 by mouth 2 ity of 12:24: (two) [place] [address] times Medical daily. Branch ALPRAZOLAM 0 Yes 1mg Take 1 mg [place] (XANAX XR 7-01 by mouth ity of ORAL) 12:24: daily. [place] [address] Medical Branch Ascorbic 2021-0 Yes 1000mg Take 1,000 U nivers Acid 1,000 7-01 mg by ity of mg TbSR 12:24: mouth 2 [place] [address] (two) Medical times [place] daily. Cholecalcif 2021-0 Yes 400U Take 400 [place] joanne, 7-01 Units by ity of Vitamin D3, 12:24: mouth [place] 400 unit 33 daily. Medical capsule Branch cyanocobala 0 Yes 5000ug Take 5,000 Univers min, 7-01 [...] mcg by ity of tablet 12:24: mouth [place] 33 every Medical morning. Branch magnesium Yes 400mg Take 400 Uni vers oxide 400 7-01 mg by ity of mg tablet 12:24: mouth [place] daily. Medical Branch pantoprazol Yes 40mg Take 40 mg Univers e 40 mg EC 7-01 by mouth ity o f tablet 12:24: daily. [place] [address] Medical Branch tamsulosin 0 Yes .4mg Take 0.4 Uni vers 0.4 mg 24 7-01 mg by ity of hr capsule 12:24: mouth [place] [address] daily. Medical Branch traMADOL 50 Yes 100mg Take 100 U nivers mg tablet 7-01 mg by ity of 12:24: mouth [place] [address] every 8 Medical (eight) Branch hours as needed for Pain (scale 4-6) or Pain (scale 7-10). May take 1 to 2 tablets Q8H as needed for pain glimepiride 0 Yes 1mg Take 1 mg U nivers 1 mg tablet 7- by mouth 2 it y of 12:24: (two) [place] [address] times Medical daily with Branch meals. gabapentin 0 Yes 100mg Take 100 [place] 100 mg 7-01 mg by ity of capsule 12:24: mouth 2 [place] [address] (two) Medical times Branch daily. rosuvastati 0 Yes 5mg Take 5 mg U nivers n 5 mg 7-01 by mouth ity of tablet 12:24: at [place] [address] bedtime. Medical Branch FUROSEMIDE 0 Yes 40mg Take 40 mg U nivers ORAL 7-01 by mouth 2 ity of 12:24: (two) [place] [address] times Medical daily. Branch ALPRAZOLAM 0 Yes 1mg Take 1 mg [place] (XANAX XR 7-01 by mouth ity of ORAL) 12:24: daily. [place] [address] Medical Branch Ascorbic 0 Yes 1000mg Take 1,000 U nivers Acid 1,000 7-01 mg by ity of mg TbSR 12:24: mouth 2 [place] 33 (two) Medical times Branch daily. Cholecalcif 0 Yes 400U Take 400 [place] joanne, 7-01 Units by ity of Vitamin D3, 12:24: mouth [place] 400 unit 33 daily. Medical capsule Branch cyanocobala 0 Yes 5000ug Take 5,000 Univers min, 7-01 mcg by ity of vitamin 12:24: mouth [place] B-12, 5,000 33 daily. Medica l mcg TbDL Branch digoxin 125 0 Yes 125ug Take 125 U nivers mcg tablet 7-01 mcg by ity of 12:24: mouth [place] 33 daily. Medical Branch levothyroxi 0 Yes 50ug Take 50 Uni vers ne 50 mcg 7-01 mcg by ity of tablet 12:24: mouth [place] [address] every Medical morning. Branch magnesium 0 Yes 400mg Take 400 Uni vers oxide 400 7-01 mg by ity of mg tablet 12:24: mouth [place] [address] daily. Medical Branch pantoprazol 0 Yes 40mg Take 40 mg Univers e 40 mg EC 7-01 by mouth ity o f tablet 12:24: daily. [place] [address] Medical Branch tamsulosin 0 Yes .4mg Take 0.4 Uni vers 0.4 mg 24 7-01 mg by ity of hr capsule 12:24: mouth [place] [address] daily. Medical Branch traMADOL 50 0 Yes 100mg Take 100 U nivers mg tablet 7-01 mg by ity of 12:24: mouth [place] [address] every 8 Medical (eight) Branch hours as needed for Pain (scale 4-6) or Pain (scale 7-10). May take 1 to 2 tablets Q8H as needed for pain glimepiride 0 Yes 1mg Take 1 mg U nivers 1 mg tablet 7-01 by mouth 2 it y of 12:24: (two) [place] 33 times Medical daily with Branch meals. gabapentin 2021-0 Yes 100mg Take 100 [place] 100 mg 7-01 mg by ity of capsule 12:24: mouth 2 [place] [address] (two) Medical times Branch daily. rosuvastati Yes 5mg Take 5 mg U nivers n 5 mg 7-01 by mouth ity of tablet 12:24: at [place] [address] bedtime. Medical Branch FUROSEMIDE 0 Yes 40mg Take 40 mg U nivers ORAL 7-01 by mouth 2 ity of 12:24: (two) [place] [address] times Medical daily. Branch ALPRAZOLAM Yes 1mg Take 1 mg [place] (XANAX XR 7-01 by mouth ity of ORAL) 12:24: daily. [place] [address] Medical Branch Ascorbic 0 Yes 1000mg Take 1,000 U nivers Acid 1,000 7-01 mg by ity of mg TbSR 12:24: mouth 2 [place] [address] (two) Medical times Branch daily. Cholecalcif Yes 400U Take 400 [place] joanne, 7-01 Units by ity of Vitamin D3, 12:24: mouth [place] 400 unit 33 daily. Medical capsule Branch cyanocobala Yes 5000ug Take 5,000 Univers min, 7-01 mcg by ity of vitamin 12:24: mouth [place] B-12, 5,000 33 daily. Medica l mcg TbDL Branch digoxin 125 Yes 125ug Take 125 U nivers mcg tablet 7-01 mcg by ity of 12:24: mouth [place] [address] daily. Medical Branch levothyroxi Yes 50ug Take 50 Uni vers ne 50 mcg 7-01 mcg by ity of tablet 12:24: mouth [place] [address] every Medical morning. Branch magnesium Yes 400mg Take 400 Uni vers oxide 400 7-01 mg by ity of mg tablet 12:24: mouth [place] [address] daily. Medical Branch pantoprazol 0 Yes 40mg Take 40 mg Univers e 40 mg EC 7-01 by mouth ity o f tablet 12:24: daily. [place] [address] Medical Branch tamsulosin 0 Yes .4mg Take 0.4 Uni vers 0.4 mg 24 7-01 mg by ity of hr capsule 12:24: mouth [place] [address] daily. Medical Branch traMADOL 50 0 Yes 100mg Take 100 U nivers mg tablet 7-01 mg by ity of 12:24: mouth [place] [address] every 8 Medical (eight) Branch hours as needed for Pain (scale 4-6) or Pain (scale 7-10). May take 1 to 2 tablets Q8H as needed for pain glimepiride Yes 1mg Take 1 mg U nivers 1 mg tablet 11-22 by mouth 2 it y of 12:24: (two) [place] [address] [facility] daily with [place] meals. gabapentin Yes 100mg Take 100 [place] 100 mg 11-22 mg by ity of capsule 12:24: mouth 2 [place] [address] (two) Medical times [place] daily. rosuvastati Yes 5mg Take 5 mg U nivers n 5 mg 11-22 by mouth ity of tablet 12:24: at [place] [address] bedtime. Medical Branch FUROSEMIDE Yes 40mg Take 40 mg U nivers ORAL 11-22 by mouth 2 ity of 12:24: (two) [place] [address] [facility] daily. Branch rivaroxaban 2021- No 20mg Take 20 mg Univers (XARELTO) 11-22 by mouth. ity of 20 mg 10:55: 00:00 [place] tablet 32 :00 Medical Branch DIGOXIN, 2021- No 10mg Take 10 mg [place] BULK, MISC 11-22 by mouth ity of 10:55: 00:00 daily. [place] 32 :[address] [facility] Branch lisinopriL 2021- No 10mg Take 10 mg Univers 10 mg 11-22 by mouth ity of tablet 10:55: 00:00 daily. [place] 32 :[address] [facility] Branch metoprolol 2021- No 50mg Take 50 mg Univers tartrate 50 11-22 by mouth 2 i ty of mg tablet 10:55: 00:00 (two) [place] 32 :[address] [facility] daily. Branch atorvastati 2021- No 20mg Take 20 mg Univers n 20 mg 11-22 by mouth ity of tablet 10:55: 00:00 daily. [place] 32 :00 Medical Branch tamsulosin Yes .4mg 0.4 mg, Univ ers (FLOMAX) 11-22 Oral, QHS, ity o f capsule 0.4 02:00: First dose [place] mg 00 on [facility] Medical 11/21/21 at [place] 2100, Until Discontinu ed, Routine lisinopriL 2021- No [id number] 10mg Take 2 Univers 5 mg tablet 11-22 tablets by i ty of 00:00: 04:59 mouth [place] 00 :00 daily for Medical 30 days. [place] lisinopriL 2021- No [id number] 10mg Take 2 Univers 5 mg tablet 11-22 tablets by i ty of 00:00: 04:59 mouth [place] 00 :00 daily for Medical 30 days. [place] lisinopriL 2021- No [id number] 10mg Take 2 Univers 5 mg tablet 11-22 tablets by i ty of 00:00: 04:59 mouth [place] 00 :00 daily for Medical 30 days. [place] cyanocobala 2021- No 1000ug 1,000 mcg, Univers min 11-21 0707 Subcutaneo ity of (VITAMIN 16:15: 13:59 [place], DAILY, [place] B12) 00 :00 7 doses, Medical injection First dose Bran ch 1,000 mcg on Thu11/21/21 at 1115, Last dose on Thu11/27/21 at 0900, Routine ergocalcife 2021- No [id number] 50,000 U nivers rol 11-21 Units, ity of (vitamin 16:15: 17:24 Oral, [place] d2) 00 :00 QWEEKLY, 1 Medical (CALCIFEROL dose, [place] ) capsule First dose 50,000 on [place] Units 11/21/21 at 1145, Routine bisacodyL Yes 10mg 10 mg, Univer s (DULCOLAX) 11-20 Rectal, ity of suppository 20:10: QDAILYPRN, [place] 10 mg 49 Starting Medical on Thu [place] 11/20/21 at 1510, Until Discontinu ed, Routine, Constipati on cholecalcif Yes 1000U 1,000 Univ ers joanne 11-20 Units, ity of (vitamin 14:00: Oral, [place] D3) tablet 00 DAILY, Medical 1,000 Units First dose Br anch on Thu11/20/21 at 0900, Until Discontinu ed, Routine ascorbic Yes 500mg 500 mg, Unive rs acid 11-20 Oral, ity of (vitamin C) 14:00: DAILY, [place] (VITAMIN C) 00 First dose Me dical tablet 500 on Thu mg 11/20/21 at 0900, Until Discontinu ed, [...] [place] capsule 50 00 on Thu mg 11/19/21 at Branch 1400, Until Discontinu [...] 00 First dose Medi anabell mcg on Thu Branch 11/19/21 at 0600, Until Discontinu ed, Routine rosuvastati Yes 10mg 10 mg, Univ ers n (CRESTOR) 11-19 Oral, QHS, it y of tablet 10 02:00: [place] dose [place] mg 00 on [facility] Medical 11/18/21 at Branch 2100, Until Discontinu ed, Routine traMADoL Yes 100mg 100 mg, Unive rs (ULTRAM) 11-18 Oral, ity of tablet 100 19:13: Q6HPRN, [place] mg 45 Starting Medical on Thu Branch 11/18/21 at 1413, Until Discontinu ed, Routine, Pain (scale 7-10) traMADoL Yes 50mg 50 mg, Univers (ULTRAM) 11-18 Oral, ity of tablet 50 19:13: Q6HPRN, [place] mg 24 Starting Medical on Thu Branch 11/18/21 at 1413, Until Discontinu ed, Routine, Pain (scale 4-6) acetaminoph Yes 650mg 650 mg, [place] en 11-18 Oral, ity of (TYLENOL) 19:13: Q6HPRN, [place] tablet 650 13 Starting Medic al mg on Thu Branch 11/18/21 at 1413, Until [...] First dose Medi anabell 40 mg on Thu Branch 11/18/21 at 0900, Until Discontinu ed, Routine digoxin Yes 125ug 125 mcg, Unive rs (LANOXIN) 11-18 Oral, ity of tablet 125 14:00: DAILY, [place] mcg 00 First dose Medical on Thu Branch 11/18/21 at 0900, Until Discontinu ed, Routine isosorbide Yes 15mg 15 mg, Unive rs mononitrate 11-18 Oral, ity of (IMDUR) 24 14:00: DAILY, [place] hr tablet 00 First dose Medi anabell 15 mg on [facility] 11/18/21 at 0900, Until Discontinu ed, Routine glipiZIDE 2021- No 5mg 5 mg, Univer s (GLUCOTROL) 11-18 Oral, ity of tablet 5 mg 14:00: 18:19 DAILY, [place] 00 :49 First dose Medical on [facility] 11/18/21 at 0900, Until Discontinu ed, Routine spironolact 2021- No 12.5mg 12.5 mg, Univers one 11-18 Oral, ity of (ALDACTONE) 14:00: 16:13 DAILY, [place] tablet 12.5 00 :25 First dose Me dical mg on [facility] 11/18/21 at 0900, Until Discontinu ed, Routine furosemide No 40mg 40 mg, Univ ers (LASIX) 11-18 Oral, ity of tablet 40 14:00: 16:13 QAM+PM, [place] mg 00 :19 First dose Medical on [facility] 11/18/21 at 0900, Until Discontinu ed, Routine azithromyci No 500mg 500 mg, IV Univers n 11-18 Piggyback, ity of (ZITHROMAX) 13:30: 18:17 Q24H ABX, [place] 500 mg in 00 :58 First dose Medi anabell NaCl 0.9% on [facility] (NS) 250 mL 11/18/21 at VIAL-MATE 0830, IV Until piggyback Discontinu ed, Administer over 60 Minutes, 250 mL
Reas on for Anti-Infec tive: Empiric Therapy for Suspected Infection< br>Empiric Therapy Site: Respirator y
Durat ion of therapy: 7 days Sliding Yes Subcutaneo Univ ers Scale 11-18 us, TID ity of Insulin - 13:00: MEALS, [place] Lispro 00 First dose Medical (HumaLOG) + on [facility] Fsbg 11/18/21 at Testing 0800, Until Discontinu ed, Routine apixaban Yes 5mg 5 mg, Univers (ELIQUIS) 11-18 Oral, BID, ity of tablet 5 mg 13:00: First dose [place] 00 on [facility] 11/18/21 at Branch 0800, Until Discontinu ed, Routine
Indicatio ns: Non-Valvul ar Atrial Fibrillati on gabapentin 0 Yes 100mg 100 mg, Uni vers (NEURONTIN) 11-18 Oral, TID, it y of capsule 100 13:00: First dose [place] mg 00 on [facility] 11/18/21 at Branch 0800, Until Discontinu ed, Routine metoprolol Yes 50mg 50 mg, Unive rs succinate 11-18 Oral, BID, ity of XL (TOPROL 13:00: First dose [place] XL) tablet 00 on [facility] Medical 50 mg 11/18/21 at Branch 0800, Until Discontinu ed, Routine magnesium 0 202- No 400mg 400 mg, Uni vers oxide 11-18 06-28 Oral, BID, ity of (MAG-OX 13:00: 16:50 First dose [place] 400) tablet 00 :44 on [facility] Medica l 400 mg 11/18/21 at Branch 0800, Until Discontinu ed, Routine ondansetron 0 Yes 4mg 4 mg, Slow Univers (ZOFRAN 11-18 IV Push, ity of (PF)) 12:31: Q6HPRN, [place] injection 4 32 Starting Medi anabell mg on [facility] 11/18/21 at 0731, Until Discontinu ed, Routine, Nausea and Vomiting (N/V) sennosides 0 Yes 8.6mg 8.6 mg, Uni vers (SENOKOT) 11-18 Oral, BID, ity of tablet 8.6 12:30: First dose [place] mg 00 on [facility] 11/18/21 at Branch 0730, Until Discontinu ed, Routine docusate 0 Yes 100mg 100 mg, Unive rs (COLACE) 11-18 Oral, BID, ity o f capsule 100 12:30: First dose [place] mg 00 on [facility] 11/18/21 at Branch 0730, Until Discontinu ed, Routine ALPRAZolam 0 Yes .5mg 0.5 mg, Univ ers (XANAX) 11-18 Oral, ity of tablet 0.5 12:26: BIDPRN, [place] mg 05 Starting Medical on Thu Branch 11/18/21 at 0726, Until Discontinu ed, Routine, anxiety glucagon Yes 1mg 1 mg, Univers (GLUCAGEN 11-18 Intramuscu ity of DIAGNOSTIC 12:24: lar, PRN, [place] KIT) 14 Starting Medical injection 1 on [facility] Branch mg 11/18/21 at 0724, Until Discontinu ed, JOCELYN, Blood Glucose < or = 70 mg/dL and patient is unable to swallow or has mental changes. glucagon Yes 1mg 1 mg, Univers (GLUCAGEN 11-18 Intravenou ity of DIAGNOSTIC 12:24: s, PRN - [place] KIT) 14 SEE Medical injection 1 INSTRUCTIO Br anch mg NS, Starting on Thu11/18/21 at 0724, Until Discontinu ed, Routine, If blood glucose is < or = 70 mg/dL and patient is unable to swallow or has mental status changes: ibuprofen No 600mg 600 mg, Uni vers (IBU) 11-18 Oral, ity of tablet 600 11:45: 10:38 ONCE, 1 [place] mg 00 :00 dose, On Medical [facility] 11/18/21 at 0645, JOCELYN cefTRIAXone No 1000mg 1,000 mg, Univers (ROCEPHIN) 11-18 IV ity of 1,000 mg in 11:30: 11:07 [place], [place] NaCl 0.9% 00 :00 ONCE, 1 Medical (NS) 50 mL dose, On Bran h MINI-BAG Thu11/18/21 at 0630, Administer over 30 Minutes, 50 mL
Reas on for Anti-Infec tive: Empiric Therapy for Suspected Infection< br>Empiric Therapy Site: Respirator y
Durat ion of therapy: 72 hours proMETHazin No 12.5mg 12.5 mg, Univers e 09-11 IV ity of (PHENERGAN) 13:45: 12:43 [place], [place] 12.5 mg in 00 :00 ONCE, 1 Medica l NaCl 0.9% dose, On Branch (NS) 50 mL Wed IV 09/11/21 at piggyback 0845, JOCELYN iopamidol 2021- No [id number] 120mL 120 mL, Univers (ISOVUE 09-11 Intravenou ity o f 370-500 mL) 13:15: 12:00 s, ONCE, 1 [place] injection 00 :00 dose, On Medica l 120 mL Wed Branch 09/11/21 at 0815, Routine NaCl 0.9% 2021- No 500mL at 100 Univ ers (NS) bolus 09-11-20 mL/hr, 500 it y of infusion 12:30: 13:25 mL, IV [place] 500 mL 00 :00 Infusion, Medical ONCE, 1 Branch dose, On 09/11/21 at 0730, STAT ondansetron 2021- No 4mg 4 mg, Slow Univers (ZOFRAN 09-11 IV Push, ity of (PF)) 11:30: 10:57 ONCE, 1 [place] injection 4 00 :00 dose, On Medi anabell mg Wed Branch 09/11/21 at 0630, JOCELYN ondansetron Yes [id number] 4mg Take 1 Univers 4 mg 4-20 tablet by ity of disintegrat 00:00: mouth [place] ing tablet 00 every 8 Medica l (eight) Branch hours as needed for Nausea and Vomiting (N/V). ondansetron 2021-0 2021- No [id number] 4mg Take 1 Univers 4 mg 4-20 07-01 tablet by ity of disintegrat 00:00: 00:00 mouth [place] ing tablet 00 :00 every 8 Medica l (eight) Branch hours as needed for Nausea and Vomiting (N/V). ondansetron 2021-2021- No 4mg 4 mg, Slow Univers (ZOFRAN 07-25 03-03 IV Push, ity of (PF)) 22:45: 21:44 ONCE, 1 [place] injection 4 00 :00 dose, On Medi anabell mg [place] 07/25/21 Branch at 1645, JOCELNY NaCl 0.9% 2021- No 1000mL at 999 Uni vers (NS) bolus 3- 03-03 mL/hr, ity of infusion 22:45: 23:36 1,000 mL, [place] 1,000 mL 00 :00 IV Medical Infusion, Branch ONCE, 1 dose, On [place] 07/25/21 at 1645, JOCELYN ondansetron 2021-0 2021- No 4mg 4 mg, Slow Univers (ZOFRAN 07-13 IV Push, ity of (PF)) 04:15: 03:21 ONCE, 1 [place] injection 4 00 :00 dose, On Medi anabell mg Fri Branch 07/12/21 at 2215, JOCELYN iopamidol 0 2021- No [id number] 100mL 100 mL, Univers (ISOVUE 07-13 Intravenou [...] dose, On 07/12/21 at 2030, STAT ondansetron 2021-0 2021- No 4mg 4 mg, Slow Univers (ZOFRAN 07-13 IV Push, ity of (PF)) 02:30: 01:46 ONCE, 1 [place] injection 4 00 :00 dose, On Medi anabell mg Fri Branch 07/12/21 at 2030, JOCELYN ondansetron 2021-0 Yes [id number] 4mg Take 1 Univers (ZOFRAN) 4 2-18 tablet by ity of mg tablet 00:00: mouth [place] 00 every 8 Medical (eight) Branch hours as needed for Nausea and Vomiting (N/V). ondansetron 2022-0 Yes [id number] 4mg Take 1 Univers (ZOFRAN) 4 2-18 tablet by ity of mg tablet 00:00: mouth [place] 00 every 8 Medical (eight) Branch hours as needed for Nausea and Vomiting (N/V). ondansetron 2022-0 Yes [id number] 4mg Take 1 Univers (ZOFRAN) 4 2-18 tablet by ity of mg tablet 00:00: mouth [place] 00 every 8 Medical (eight) Branch hours as needed for Nausea and Vomiting (N/V). ondansetron 2021- No [id number] 4mg Take 1 Univers (ZOFRAN) 4 2-18 - tablet by ity of mg tablet 00:00: 00:00 mouth [place] 00 :00 every 8 Medical (eight) Branch hours as needed for Nausea and Vomiting (N/V). aspirin 81 2020-05- No [id number] 81mg Take 1 Univers mg chewable 0-06 11-06 tablet by it y of tablet 00:00: 04:59 mouth [place] 00 :00 daily for Medical 30 days. Branch furosemide 2020-05- No [id number] 60mg Take 3 Univers 20 mg 0-06 11-06 tablets by ity of tablet 00:00: 04:59 mouth [place] 00 :00 every Medical morning Branch and evening for 30 days. aspirin 81 2020-05- No [id number] 81mg Take 1 Univers mg chewable 0-06 11-06 tablet by it y of tablet 00:00: 04:59 mouth [place] 00 :00 daily for Medical 30 days. Branch furosemide 2020-05- No [id number] 60mg Take 3 Univers 20 mg 0-06 [...] mouth ity o f tablet 20:20: daily. [place] 16 Medical Branch tamsulosin 2020-05 Yes .4mg [...] mouth 2 it y of 20:20: (two) [place] [address] times Medical daily with Branch meals. gabapentin 2020-05 Yes 100mg Take 100 [place] 100 mg 0-05 mg by ity of capsule 20:20: mouth 2 [place] 16 (two) Medical times Branch daily. rosuvastati 2020-05 Yes 5mg Take 5 mg U nivers n 5 mg 0-05 by mouth ity of tablet 20:20: at [place] [address] bedtime. Medical Branch ALPRAZOLAM 2020-05 Yes 1mg Take 1 mg [place] (XANAX XR 0-05 by mouth ity of ORAL) 20:20: every 8 [place] [address] (eight) Medical hours as Branch needed. Ascorbic [...] mouth ity o f tablet 20:20: daily. [place] 16 Medical Branch tamsulosin 2020-05 Yes .4mg [...] mouth ity o f tablet 20:20: daily. [place] 16 Medical Branch tamsulosin 2020-05 Yes .4mg [...] mouth ity o f tablet 20:20: daily. [place] 16 Medical Branch tamsulosin 2020-05 Yes .4mg [...] 0-05 mg by ity of 20:20: mouth [place] 16 every 8 Medical (eight) Branch hours as needed for Pain (scale 4-6) or Pain (scale 7-10). May take 1 to 2 tablets Q8H as needed for pain glimepiride 2020-05 Yes 1mg Take 1 mg U nivers 1 mg tablet 0-05 by mouth 2 it y of 20:20: (two) [place] 16 times Medical daily with Branch meals. gabapentin 2020-05 Yes 100mg Take 100 [place] 100 mg 0-05 mg by ity of capsule 20:20: mouth 2 [place] 16 (two) Medical times [place] daily. rosuvastati 2020-05 Yes 5mg Take 5 mg U nivers n 5 mg 0-05 by mouth ity of tablet 20:20: at [place] [address] bedtime. Medical Branch lisinopril 2020-05- No 10mg Take 10 mg Univers 10 mg 0-05 10-05 by mouth ity of tablet 17:14: 00:00 daily. [place] 23 :00 Medical Branch furosemide 2020-05- No 60mg Take 60 mg Univers 40 mg 0-05 10-05 by mouth ity of tablet 17:14: 00:00 every [place] 23 :00 morning Medical and Branch evening. KCL 10 mEq 2020-05 No 10meq Take 10 [place] tablet 0-05 10-05 mEq by ity of 17:14: 00:00 mouth 2 [place] 23 :00 (two) Medical times [place] daily. isosorbide 2020-05- No 30mg Take 30 mg Univers mononitrate 0-05 10-05 by mouth ity of 30 mg 24 hr 17:14: 00:00 daily. [place] tablet 23 :00 Medical Branch furosemide 2020-05 Yes 60mg 60 mg, Unive rs (LASIX) 0-05 Oral, ity of tablet 60 14:00: QAM+PM, [place] mg 00 First dose Medical on [facility] 02/26/21 at 0900, Until Discontinu ed, Routine tamsulosin 2020-05 Yes .4mg 0.4 mg, Univ ers (FLOMAX) 0-05 Oral, ity of capsule 0.4 14:00: DAILY, [place] mg 00 First dose Medical on [facility] 02/26/21 at 0900, Until Discontinu ed, Routine sennosides- 2020-05 Yes 1{tbl} 1 tablet, Univers docusate 0-05 Oral, ity of sodium 14:00: DAILY, [place] (SENOKOT-S) 00 First dose Me dical 8.6-50 mg on [facility] per tablet 02/26/21 at 1 tablet 0900, Until Discontinu ed, Routine polyethylen 2020-05 Yes 17g 17 g, Unive rs e glycol 0-05 Oral, ity of 3350 powder 14:00: DAILY, [place] 17 g 00 First dose Medical on [facility] 02/26/21 at 0900, Until Discontinu ed, Routine pantoprazol 2020-05 Yes 40mg 40 mg, Univ ers e 0-05 Oral, ity of (PROTONIX) 14:00: DAILY, [place] EC tablet 00 First dose Medi anabell 40 mg on [facility] 02/26/21 at 0900, Until Discontinu ed, Routine aspirin 2020-05 Yes 81mg 81 mg, Univers chewable 0-05 Oral, ity of tablet 81 14:00: DAILY, [place] mg 00 First dose Medical on [facility] 02/26/21 at 0900, Until Discontinu ed, Routine digoxin 2020-05 Yes 125ug 125 mcg, [facility] ([facility] 0-05 Oral, ity of tablet 125 14:00: DAILY, [place] mcg 00 First dose Medical on [facility] 02/26/21 at 0900, Until Discontinu ed, Routine magnesium 2020-05 Yes 400mg 400 mg, Univ ers oxide 0-05 Oral, ity of (MAG-OX 14:00: DAILY, [place] 400) tablet 00 First dose Me dical 400 mg on [facility] 02/26/21 at 0900, Until Discontinu ed, Routine Sliding 2020-05 Yes Subcutaneo Univ ers Scale 0-05 us, AC, ity of Insulin-Reg 12:30: First dose [place] ular + Fsbg 00 on [facility] l Testing 02/26/21 at Branch 0730, Until Discontinu ed, Routine glucagon 2020-05 Yes 1mg 1 mg, Univers (GLUCAGEN 0-05 Intramuscu ity of DIAGNOSTIC 11:07: [place], PRN, [place] KIT) 13 Starting Medical injection 1 on [facility] mg 02/26/21 at 0607, Until Discontinu ed, JOCELYN, Blood Glucose < or = 70 mg/dL and patient is unable to swallow or has mental changes. dextrose 50 2020-05 Yes 25mL 25 mL, Univ ers % in water 0-05 Slow IV ity of (D50W) 11:07: Push, PRN, [place] injection 13 Starting Medica l 25 mL on [facility] Branch 02/26/21 at 0607, Until Discontinu ed, JOCELYN, Blood Glucose < or = 70 mg/dL and patient is unable to swallow or has mental status changes. levothyroxi 2020-05 Yes 50ug 50 mcg, Uni vers ne 0-05 Oral, ity of (SYNTHROID) 11:00: QAM-0600, [place] tablet 50 00 First dose Medi anabell mcg on [facility] Branch 02/26/21 at 0600, Until Discontinu ed, Routine diltiazem 2020-05 Yes 10mg 10 mg, Univer s (CARDIZEM 0-05 Slow IV ity of IV) 10:56: Push, [place] injection 56 Q4HPRN, Medical 10 mg Starting Branch on [facility] 02/26/21 at 0556, Until Discontinu ed, Routine, For HR > 120
Fac ulty member approving Restricted medication : RICKY WEEKS calcium 2020-05 No 1g 1 g, IV Univer s gluconate 1 0-05 10-05 Infusion, it y of g in NaCl 08:30: 07:36 ONCE, 1 [place] 50 mL 00 :00 dose, On Medical (ISO-OSM) [facility] RTU IV 02/26/21 at infusion 1 0330, g Routine cyclobenzap 2020-05- No 10mg 10 mg, Uni vers rine 0-05 10-05 Oral, ity of (FLEXERIL) 07:30: 07:23 ONCE, 1 [place] tablet 10 00 :00 dose, On Medica l mg [facility] 02/26/21 at 0230, Routine sodium 2020-05- No 15g 15 g, Univers polystyrene 0-05 10-05 Oral, ity of sulfonate 07:30: 07:02 ONCE, 1 [place] (KAYEXALATE 00 :00 dose, On [facility] ) 15 Thu Branch gram/60 mL 02/26/21 at suspension 0230, [...] [place] (HUMULIN R) 00 :00 dose, On [facility] injection [facility] 10 Units 02/26/21 at 0215, Routine melatonin 2020-05 Yes 6mg 6 mg, Univers (MELATIN) 0-05 Oral, ity of tablet 6 mg 03:16: QHSPRN, [place] 26 Starting Medical on [facility] 02/25/21 at 2216, Until Discontinu ed, Routine, Insomnia rosuvastati 2020-05 Yes 5mg 5 mg, Unive rs n (CRESTOR) 0-05 Oral, QHS, it y of tablet 5 mg 02:00: First dose [place] 00 on [facility] 02/25/21 at Branch 2100, Until Discontinu ed, Routine gabapentin 2020-05 Yes 100mg 100 mg, Uni vers (NEURONTIN) 0-05 Oral, BID, it y of capsule 100 01:00: First dose [place] mg 00 on [facility] 02/25/21 at Branch 1999, Until Discontinu ed, Routine metoprolol 2020-05 Yes 50mg 50 mg, Unive rs succinate 0-05 Oral, BID, ity of XL (TOPROL 01:00: First dose [place] XL) tablet 00 on [facility] 50 mg 02/25/21 at Branch 1999, Until Discontinu ed, Routine apixaban 2020-05 Yes 5mg 5 mg, Univers (ELIQUIS) 0-05 Oral, BID, ity of tablet 5 mg 01:00: First dose [place] 00 on [facility] 02/25/21 at Branch 1999, Until Discontinu ed, Routine furosemide 2020-05 No 40mg 40 mg, Univ ers (LASIX) 0-05 10-05 Slow IV ity of injection 01:00: 11:03 Push, [place] 40 mg 00 :04 Q12H, Medical First dose Branch on Thu02/25/21 at 2000, Until Discontinu ed, Routine isosorbide 2020-05- No [id number] 30mg Take 1 Univers mononitrate 0-05 11-05 tablet by it y of 30 mg 24 hr 00:00: 04:59 mouth [place] tablet 00 :00 daily for Medical 30 days. Branch KCL 10 mEq 2020-05- No [id number] 10meq Take 1 Univers tablet 0-05 11-05 tablet by ity of 00:00: 04:59 mouth [place] 00 :00 daily for Medical 30 days. Branch melatonin 3 2020-05- No [id number] 6mg Take 2 Univers mg tablet 0-05 11-05 tablets by ity of 00:00: 04:59 mouth at [place] 00 :00 bedtime as Medical needed for Branch Insomnia for up to 30 days. metoprolol 2020-05- No [id number] 50mg Take 1 Univers succinate 0-05 11-05 tablet by ity of XL 50 mg 24 00:00: 04:59 mouth 2 [place] hr tablet 00 :00 (two) Medical times Branch daily for 30 days. spironolact 2020-05- No [id number] 25mg Take 1 Univers one 25 mg 0-05 11-05 tablet by ity of tablet 00:00: 04:59 mouth [place] 00 :00 daily for Medical 30 days. Branch isosorbide 2020-05- No [id number] 30mg Take 1 Univers mononitrate 0-05 11-05 tablet by it y of 30 mg 24 hr 00:00: 04:59 mouth [place] tablet 00 :00 daily for Medical 30 days. Branch KCL 10 mEq 2020-05- No [id number] 10meq Take 1 Univers tablet 0-05 11-05 tablet by ity of 00:00: 04:59 mouth [place] 00 :00 daily for Medical 30 days. Branch melatonin 3 2020-05- No [id number] 6mg Take 2 Univers mg tablet 0-05 11-05 tablets by ity of 00:00: 04:59 mouth at [place] 00 :00 bedtime as Medical needed for Branch Insomnia for up to 30 days. metoprolol 2020-05- No [id number] 50mg Take 1 Univers succinate 0-05 -05 tablet by ity of XL 50 mg 24 00:00: 04:59 mouth 2 [place] hr tablet 00 :00 (two) Medical times [place] daily for 30 days. spironolact 2020-05- No [id number] 25mg Take 1 Univers one 25 mg 0-05 -05 tablet by ity of tablet 00:00: 04:59 mouth [place] 00 :00 daily for Medical 30 days. Branch traMADoL 2020-05 No 50mg 50 mg, Univer s (ULTRAM) 0-04 10-04 Oral, ONCE ity of tablet 50 21:45: 20:37 NOW, 1 [place] mg 00 :00 dose, On Medical [facility] 02/25/21 at 1645, Routine ondansetron 2020-05 Yes 4mg 4 mg, Slow Univers (ZOFRAN 0-04 IV Push, ity of (PF)) 21:37: Q6HPRN, [place] injection 4 10 Starting Medi anabell mg on [facility] 02/25/21 at 1637, Until Discontinu ed, Routine, Nausea and Vomiting (N/V) traMADoL 2020-05 No 50mg 50 mg, Univer s (ULTRAM) 0-04 10-06 Oral, ity of tablet 50 21:36: 21:35 Q8HPRN, [place] mg 55 :55 Starting Medical on Thu [place] 02/25/21 at 1636, Until Thu02/27/21 at 1635, Routine, Pain (scale 4-6) acetaminoph 2020-05 Yes 650mg 650 mg, [place] en 0-04 Oral, ity of (TYLENOL) 21:36: Q6HPRN, [place] tablet 650 51 Starting Medic al mg on [facility] 02/25/21 at 1636, Until Discontinu ed, Routine, Pain (scale 1-3) diltiazem 2020-05- No 60mg 60 mg, Unive rs (CARDIZEM) 0-04 10-04 Oral, ONCE it y of tablet 60 21:30: 20:37 NOW, 1 [place] mg 00 :00 dose, On Medical [facility] 02/25/21 at 1630, Routine diltiazem 2020-05- No 2.5mg/h 2.5-15 [place] (CARDIZEM 0-04 10-05 mg/hr ity of IV) 125 mg 20:03: 10:57 (2.5-15 [place] in D5W 05 :18 mL/hr), IV Medical infusion Infusion, Branch TITRATE, rate control, HR <100 is goal, Starting on [facility] 02/25/21 at 1503
In itiate infusion at 2.5 mg/hr. Titrate by 2.5 mg/hr every 5 minutes to 15 minutes as needed to achieve and maintain goal heart rate. Maximum dose = 15 mg/hr. If goal not maintained at maximum allowed dose, contact prescriber .
diltiazem 2020-05- No 10mg 10 mg, IV [place] (CARDIZEM 0-04 10-04 Push, ity of IV) 20:00: 19:32 ONCE, 1 [place] injection 00 :00 dose, On Medica l 10 mg [facility] 02/25/21 at 1500, STAT
Fa culty member approving Restricted medication : MONICO MARIEE aspirin 81 2020-05- No 81mg Take 81 mg Univers mg chewable 0-04 10-04 by mouth ity of tablet 16:38: 00:00 daily. [place] 43 :00 [facility] atorvastati 2020-05- No 20mg Take 20 mg Univers n 20 mg 0-04 10-04 by mouth ity of tablet 16:38: 00:00 at [place] 43 :00 bedtime. Medical Branch OMEGA-3 2020-05- No 1000mg Take 1,000 U nivers FATTY 0-04 10-04 mg by ity of ACIDS/FISH 16:38: 00:00 mouth 2 [place] OIL ([place] 43 :00 (two) Medical 3 FISH OIL times Branch ORAL) daily. traMADoL 2020- No 50mg 50 mg, Univer s (ULTRAM) 02-17 Oral, ONCE ity of tablet 50 21:00: 20:16 NOW, 1 [place] mg 00 :00 dose, On Medical [facility] 02/17/21 at 1600, JOCELYN ALPRAZOLAM 2021-0 Yes 1mg Take 1 mg [place] (XANAX XR 2-06 by mouth ity of ORAL) 01:21: every 8 (eight) Medical hours as Branch needed. Ascorbic 0 Yes 1000mg Take 1,000 U nivers Acid 1,000 2-06 mg by ity of mg TbSR 01:21: mouth 2 07 (two) Medical times Branch daily. aspirin 81 0 Yes 81mg Take 81 mg U nivers [...] mcg by ity of tablet 01:21: mouth 07 every Medical morning. Branch lisinopril Yes 10mg Take 10 mg U nivers 10 mg 2-06 by mouth ity of tablet 01:21: daily. Medical Branch magnesium 0 Yes 400mg Take 400 Uni vers oxide 400 2-06 mg by ity of mg tablet 01:21: mouth [place] 07 daily. Medical Branch OMEGA-3 0 Yes 1000mg Take 1,000 [place] FATTY 2-06 mg by ity of ACIDS/FISH 01:21: mouth 2 [place] OIL (OMEGA 07 (two) Medical 3 FISH OIL times Branch ORAL) daily. pantoprazol 0 Yes 40mg Take 40 mg Univers e 40 mg EC 2-06 by mouth ity o f tablet 01:21: daily. Medical Branch tamsulosin 2021-0 Yes .4mg Take 0.4 Uni vers 0.4 mg 24 2-06 mg by ity of hr capsule 01:21: mouth daily. Medical Branch traMADOL 50 2020-0 Yes 100mg Take 100 U nivers mg [...] mEq by ity of 01:21: mouth 2 [place] [address] (two) Medical times Branch daily. isosorbide 0 Yes 30mg Take 30 mg U nivers mononitrate 2-06 by mouth ity of 30 mg 24 hr 01:21: daily. [place] [facility] Medical Branch glimepiride 0 Yes 1mg Take 1 mg U nivers 1 mg tablet 2-06 by mouth 2 it y of 01:21: (two) times Medical daily with Branch meals. gabapentin 2020-0 Yes 100mg Take 100 [place] 100 mg 2-06 mg by ity of capsule 01:21: mouth 2 [place] [address] (two) Medical times Branch daily. ALPRAZOLAM 0 Yes 1mg Take 1 mg [place] (XANAX XR 2-06 by mouth ity of ORAL) 01:21: every 8 (eight) Medical hours as Branch needed. Ascorbic 2020-0 Yes 1000mg Take 1,000 U nivers Acid 1,000 2-06 mg by ity of mg TbSR 01:21: mouth 2 [place] [address] (two) Medical times Branch daily. aspirin 81 2020-0 Yes 81mg Take 81 mg U nivers mg chewable 2-06 by mouth ity of tablet 01:21: daily. [place] [address] Medical Branch atorvastati 2020-0 Yes 20mg Take 20 mg Univers n 20 mg 2-06 by mouth ity of tablet 01:21: at [place] [address] bedtime. Medical Branch Cholecalcif 2020-0 Yes 400U [...] by mouth ity of tablet 01:21: daily. [place] [address] Medical Branch magnesium Yes 400mg Take 400 [...] mouth 07 daily. Medical Branch traMADOL 50 Yes 100mg Take 100 U nivers mg tablet 2-06 mg by ity of 01:21: mouth [place] 07 every 8 Medical (eight) Branch hours [...] mEq by ity of 01:21: mouth 2 [place] 07 (two) Medical times Branch daily. isosorbide Yes 30mg Take 30 mg U nivers mononitrate 2-06 by mouth ity of 30 mg 24 hr 01:21[place] tablet 07 [place] glimepiride Yes 1mg Take 1 mg U nivers 1 mg tablet 2-06 by mouth 2 it y of 01:21: (two) [place] [address] times Medical daily with Branch meals. gabapentin Yes 100mg Take 100 [place] 100 mg 2-06 mg by ity of capsule 01:21: mouth 2 [place] 07 (two) Medical times Branch daily. ALPRAZOLAM Yes 1mg Take 1 mg [place] (XANAX XR 2-06 by mouth ity of ORAL) 01:21: every 8 [place] [address] (eight) Medical hours as Branch needed. Ascorbic Yes 1000mg Take 1,000 U nivers Acid 1,000 2-06 mg by ity of mg TbSR 01:21: mouth 2 [place] [address] (two) Medical times Branch daily. aspirin 81 Yes 81mg Take 81 mg U nivers mg chewable 2-06 by mouth ity of tablet 01:21: daily. [address] Branch atorvastati Yes 20mg Take 20 mg Univers n 20 mg 2-06 by mouth ity of tablet 01:21: at [place] [address] bedtime. Medical Branch Cholecalcif Yes 400U Take 400 [place] joanne, 2-06 Units by ity of Vitamin D3, 01:21: mouth [place] 400 unit 07 daily. Medical capsule Branch [...] of tablet 01:21: daily. Medical Branch magnesium 2020-0 Yes 400mg Take 400 Uni vers oxide 400 2-06 mg by ity of mg tablet 01:21: mouth daily. Medical Branch OMEGA-3 2020-0 Yes 1000mg Take 1,000 [place] FATTY 2-06 mg by ity of ACIDS/FISH 01:21: mouth 2 [place] OIL (OMEGA (two) Medical 3 FISH OIL times Branch ORAL) daily. pantoprazol 0 Yes 40mg Take 40 mg Univers e 40 mg EC 2-06 by mouth ity o f tablet 01:21: daily. Medical Branch tamsulosin 0 Yes .4mg Take 0.4 Uni vers 0.4 mg 24 2-06 mg by ity of hr capsule 01:21: mouth daily. Medical Branch traMADOL 50 2020-0 Yes 100mg Take 100 U nivers mg tablet 2-06 mg by ity of 01:21: mouth every 8 Medical (eight) Branch hours as needed for Pain (scale 4-6) or Pain (scale 7-10). May take 1 to 2 tablets Q8H as needed for pain furosemide 0 Yes 60mg Take 60 mg U nivers [...] 2 it y of 01:21: (two) times [facility] daily with Branch meals. gabapentin 2020-0 Yes 100mg Take 100 [place] 100 mg 2-06 mg by ity of capsule 01:21: mouth 2 (two) Medical times Branch daily. spironolact 2020-0 Yes [id number] 25mg Take 1 Univers one 25 mg 2-06 tablet by ity o f tablet 00:00: mouth [place] 00 daily. Medical Branch spironolact 0 Yes [id number] 25mg Take 1 Univers one 25 mg 2-06 tablet by ity o f tablet 00:00: mouth [place] 00 daily. Medical Branch spironolact 0 Yes [id number] 25mg Take 1 Univers one 25 mg 2-06 tablet by ity o f tablet 00:00: mouth [place] 00 daily. Medical Branch spironolact 0 Yes [id number] 25mg Take 1 Univers one 25 mg 2-06 tablet by ity o f tablet 00:00: mouth [place] 00 daily. Medical Branch spironolact 2020- No [id number] 25mg Take 1 Univers one 25 mg [...] (eight) Medical hours as Branch needed. Ascorbic 0 Yes 1000mg Take 1,000 U nivers Acid 1,000 2-05 mg by ity of mg TbSR 19:21: mouth 2 07 (two) Medical times Branch daily. aspirin 81 0 Yes 81mg Take 81 mg U nivers mg chewable 2-05 by mouth ity of tablet 19:21: daily. Medical Branch atorvastati 0 Yes 20mg Take 20 mg Univers n 20 mg 2-05 by mouth ity of tablet 19:21: at [place] [address] bedtime. Medical Branch Cholecalcif 0 Yes 400U Take 400 [place] joanne, 2-05 Units by ity of Vitamin D3, 19:21: mouth [place] 400 unit 07 daily. Medical capsule Branch cyanocobala 0 Yes 5000ug Take 5,000 Univers min, 2-05 mcg by ity of vitamin 19:21: mouth [place] B-12, 5,000 07 daily. Medica l mcg TbDL Branch digoxin 125 Yes 125ug Take 125 U nivers mcg tablet 2-05 mcg by ity of 19:21: mouth 07 daily. Medical Branch levothyroxi Yes 50ug [...] 2-05 mg by ity of 19:21: mouth 07 every 8 Medical (eight) Branch [...] 24 hr 19:21: [place]. [place] tablet 07 [place] glimepiride Yes 1mg Take 1 mg U nivers 1 mg tablet 2-05 by mouth 2 it y of 19:21: (two) [place] times [facility] daily with Branch meals. gabapentin Yes 100mg Take 100 [place] 100 mg 2-05 mg by ity of capsule 19:21: mouth 2 [place] (two) Medical times Branch daily. insulin Yes .2U/kg/ 18 Units Uni vers glargine 2-05 d (rounded ity of (LANTUS 03:00: from 17.96 [place] U-100) 00 Units = Medical injection 0.2 Branch 18 Units Units/kg/d ay ?89.8 kg), Subcutaneo us, QHS, First dose on [facility] 06/28/20 at 2100, Until Discontinu ed, Routine atorvastati Yes 20mg 20 mg, Univ ers n (LIPITOR) 2-05 Oral, QHS, it y of tablet 20 03:00: [place] 00 on [facility] 06/28/20 at Branch 2100, Until Discontinu ed, Routine metoprolol 0 Yes [id number] 50mg Take 1 Univers succinate 2-05 tablet by ity o f XL 50 mg 24 00:00: mouth 2 [place] tablet 00 (two) Medical times Branch daily. metoprolol Yes [id number] 50mg Take 1 Univers succinate 2-05 tablet by ity o f XL 50 mg 24 00:00: mouth 2 [place] hr tablet 00 (two) Medical times Branch daily. metoprolol 0 Yes [id number] 50mg Take 1 Univers succinate 2-05 tablet by ity o f XL 50 mg 24 00:00: mouth 2 [place] tablet 00 (two) Medical times Branch daily. metoprolol 2020-0 Yes [id number] 50mg Take 1 Univers succinate 2-05 tablet by ity o f XL 50 mg 24 00:00: mouth 2 [place] tablet 00 (two) Medical times Branch daily. metoprolol 2020- No [id number] 50mg Take 1 Univers succinate 2-05 10-05 tablet by ity of XL 50 mg 24 00:00: 00:00 mouth 2 [place] hr tablet 00 :00 (two) Medical times Branch daily. glucagon Yes 1mg 1 mg, Univers (GLUCAGEN 04 Intramuscu ity of DIAGNOSTIC 22:45: [place], PRN, [place] KIT) 15 Starting Medical injection 1 [facility] 06/28/20 Br anch mg at 1645, Until Discontinu ed, JOCELYN, Blood Glucose < or = 70 mg/dL and patient is unable to swallow or has mental changes. dextrose 50 0 Yes 25mL 25 mL, Univ ers % in water 2-04 Slow IV ity of (D50W) 22:45: Push, PRN, [place] injection 15 Starting Medica l 25 mL [facility] 06/28/20 Branch at 1645, Until Discontinu ed, JOCELYN, Blood Glucose < or = 70 mg/dL and patient is unable to swallow or has mental status changes. cyanocobala 2020- No 1000ug 1,000 mcg, Univers min 06-28 02-04 Intramuscu ity of (VITAMIN 21:31: 22:58 [place], ONCE, [place] B12) 00 :00 1 dose, Medical injection [facility] 06/28/20 Bran ch 1,000 mcg at 1545, Routine morpHINE 2020- No 2mg 2 mg, Slow [place] injection 2 06-28-04 IV Push, ity of mg 20:45: 19:54 ONCE NOW, [place] 00 :00 1 dose, Medical [facility] 06/28/20 Branch at 1445, Routine apixaban 0 Yes 5mg 5 mg, Univers (ELIQUIS) 204 Oral, BID, ity of tablet 5 mg 19:54: First dose [place] 13 on [facility] 06/28/20 at Branch 1999, Until Discontinu ed, Routine lisinopriL 0 Yes 5mg 5 mg, Univer s (PRINIVIL,Z 2-04 Oral, ity of ESTRIL) 15:00: DAILY, [place] tablet 5 mg 00 First dose Me dical (after Branch last modificati on) on [facility] 06/28/20 at 0900, Until Discontinu ed, Routine tamsulosin 0 Yes .4mg 0.4 mg, Univ ers (FLOMAX) 2-04 Oral, ity of capsule 0.4 15:00: DAILY, [place] mg 00 First dose Medical on [facility] Branch 06/28/20 at 0900, Until Discontinu ed, Routine Polyethylen 0 Yes 17g 17 g, Unive rs e Glycol 2-04 Oral, ity of 3350 15:00: QTUE/THURS [place] (MIRALAX) 00 /SAT, Medical powder 17 g First dose Br anch on [facility] 06/28/20 at 0900, Until Discontinu ed, Routine pantoprazol Yes 40mg 40 mg, Univ ers e 2-04 Oral, ity of (PROTONIX) 15:00: DAILY, [place] EC tablet 00 First dose Medi anabell 40 mg on [facility] Branch 06/28/20 at 0900, Until Discontinu ed, Routine magnesium Yes 400mg 400 mg, Univ ers oxide 2-04 Oral, ity of (MAG-OX 15:00: DAILY, [place] 400) tablet 00 First dose Me dical 400 mg on [facility] Branch 06/28/20 at 0900, Until Discontinu ed, Routine isosorbide Yes 30mg 30 mg, Unive rs mononitrate 2-04 Oral, ity of (IMDUR) 24 15:00: DAILY, [place] hr tablet 00 First dose Medi anabell 30 mg on [facility] Branch 06/28/20 at 0900, Until Discontinu ed, Routine digoxin Yes 125ug 125 mcg, Unive rs (LANOXIN) 2-04 Oral, ity of tablet 125 15:00: DAILY, [place] mcg 00 First dose Medical on [facility] Branch 06/28/20 at 0900, Until Discontinu ed, Routine Sliding 2020-0 Yes Subcutaneo Univ ers Scale 2-04 us, TID ity of Insulin - 14:00: MEALS+HS, [place] as Lispro 00 First dose Medical (HumaLOG) + on [facility] 06/28/20 at Testing 0800, Until Discontinu ed, Routine sennosides- Yes 1{tbl} 1 tablet, Univers docusate 2-04 Oral, BID, ity o f sodium 14:00: First dose [place] (SENOKOT-S) 00 on [facility] l 8.6-50 mg 06/28/20 at Bran h per tablet 0800, 1 tablet Until Discontinu ed, Routine KCL 2020-0 Yes 10meq 10 mEq, Univers (KLOR-CON 2-04 Oral, BID, ity of M10) tablet 14:00: First dose [place] 10 mEq 00 on [facility] 06/28/20 at Branch 0800, Until Discontinu ed, Routine gabapentin 2020-0 Yes 100mg 100 mg, Uni vers (NEURONTIN) 2-04 Oral, BID, it y of capsule 100 14:00: First dose [place] mg 00 on [facility] 06/28/20 at Branch 0800, Until Discontinu ed, Routine glipiZIDE 0 Yes 2.5mg 2.5 mg, Univ ers (GLUCOTROL) 2-04 Oral, ity of tablet 2.5 13:30: BIDAC, [place] mg 00 First dose Medical on [facility] 06/28/20 at 0730, Until Discontinu ed, Routine levothyroxi 0 Yes 50ug 50 mcg, Uni vers ne 2-04 Oral, ity of (SYNTHROID) 12:00: QAM-0600, [place] tablet 50 00 First dose Medi anabell mcg on [facility] 06/28/20 at 0600, Until Discontinu ed, Routine furosemide 2020- No 80mg 80 mg, IV U nivers (LASIX) 06-28 02-05 Push, Q8H, ity o f injection 12:00: 17:27 First dose [place] 80 mg 00 :59 on [facility] 06/28/20 at Branch 0600, Until Discontinu ed, Routine spironolact 0 Yes 25mg 25 mg, Univ ers one 2-04 Oral, ity of (ALDACTONE) 09:00: DAILY, [place] tablet 25 00 First dose Medi anabell mg on [facility] 06/28/20 at 0300, Until Discontinu ed, Routine metoprolol 0 Yes 50mg 50 mg, Unive rs succinate 2-04 Oral, BID, ity of XL (TOPROL 09:00: First dose [place] XL) tablet 00 on [facility] 50 mg 06/28/20 at Branch 0300, Until Discontinu ed, Routine ondansetron 0 Yes 4mg 4 mg, Slow Univers (ZOFRAN 2-04 IV Push, ity of (PF)) 08:53: Q6HPRN, [place] injection 4 48 Starting Medi anabell mg [facility] 06/28/20 Branch at 0253, Until Discontinu ed, Routine, Nausea and Vomiting (N/V) melatonin Yes 3mg 3 mg, Univers (MELATIN) 2-04 Oral, QHS, ity of tablet 3 mg 08:45: First dose [place] 00 on [facility] 06/28/20 at Branch 0245, Until Discontinu ed, Routine aspirin Yes 81mg 81 mg, Univers chewable 2-04 Oral, QAM ity of tablet 81 08:45: WITH [place] mg 00 BREAKFAST, Medical First dose Branch on [facility] 06/28/20 at 0245, Until Discontinu ed, Routine TRAMADOL 2020- No Take by Unive rs HCL 06-28- mouth. ity of (TRAMADOL 08:39: 00:00 [place] ORAL) 21 :00 Medical Branch clopidogrel 2020- No 75mg Take 75 mg Univers (PLAVIX) 75 06-28- by mouth ity of mg tablet 08:39: 00:00 daily. [place] 21 :00 Medical Branch fluocinonid 2020- No Apply to U nivers e 0.05 % 06-28 area(s) 2 ity o f solution 08:39: 00:00 (two) [place] 21 :00 times Medical daily. Branch lubiproston 2020- No 8ug Take 8 mcg Univers e (AMITIZA) 06-28 by mouth 2 i ty of 8 mcg 08:39: 00:00 (two) [place] capsule 21 :00 times Medical daily with [place] meals. Psyllium 2020- No 1{packa Take 1 Uni vers Husk-Sucros 06-28 ge} Package by i ty of e (DAILY 08:39: 00:00 mouth. [place] FIBER, 21 :00 Medical PSYLLIUM-KIM Branch CROSE,) 3.4 gram/12 gram Powd traMADoL Yes 50mg 50 mg, Univers (ULTRAM) 2-04 Oral, ity of tablet 50 08:38: TIDPRN, [place] mg 22 Starting Medical [facility] 06/28/20 Branch at 0238, Until Discontinu ed, Routine, Pain (scale 4-6) ALPRAZolam Yes .5mg 0.5 mg, Univ ers (XANAX) 06-28 Oral, ity of tablet 0.5 08:36: TIDPRN, [place] mg 06 Starting Medical [facility] 06/28/20 Branch at 0236, Until Discontinu ed, Routine, anxiety, insomnia furosemide 2020- No 40mg 40 mg, IV U nivers (LASIX) 06-28 Push, ity of injection 02:45: 02:24 ONCE, 1 [place] 40 mg 00 :00 dose, [facility] Medical 06/27/20 at Branch 2044, JOCELYN FENTanyl PF No 25ug 25 mcg, [place] (SUBLIMAZE 06-28 Slow IV ity o f (PF)) 02:45: 02:24 Push, [place] injection 00 :00 ONCE, 1 Medical 25 mcg dose, [facility] 06/27/20 at 2044, STAT levoFLOXaci 2020- No 750mg 750 mg, IV Univers n in D5W 06-28 Piggyback, ity of (LEVAQUIN) 02:45: 05:08 ONCE, 1 [place] as 750 mg/150 00 :00 dose, Wed Medi anabell mL 06/27/20 at Branch Piggyback 2044, 150 750 mg mL
Reas on for Anti-Infec tive: Documented Infection< br>Documen beatrice Infection Site: Respirator y
Durat ion of Therapy: Other (see Comments) NaCl 0.9% No 500mL at 999 [facility] ers (NS) bolus 06-28- mL/hr, 500 it y of infusion 02:00: 03:00 mL, IV [place] 500 mL 00 :00 Infusion, Medical ONCE, 1 [place] dose, [facility] 06/27/20 at 2000, STAT iohexol 2020- No 100mL 100 mL, Unive rs (OMNIPAQUE 06-28 Intravenou it y of 350 01:30: 01:30 s, ONCE, 1 [place] BULK-100 00 :00 dose, Wed Medica l mL) 06/27/20 at Branch injection 1930, 100 mL Routine aspirin 81 Yes 81mg Take 81 mg U nivers mg chewable 5-16 by mouth ity of tablet 15:34: daily. [address] Branch atorvastati Yes 20mg Take 20 mg [...] mouth ity of mg tablet 15:34: daily. [address] cyanocobala Yes 5000ug Take 5,000 Univers min, [...] by mouth ity of tablet 15:34: daily. [address] Branch lubiproston Yes 8ug Take 8 mcg [...] mouth ity o f tablet 15:34: daily. [place] 30 Medical Branch Psyllium 0 Yes 1{packa Take 1 Univ ers Husk-Sucros 5-16 ge} Package by it y of e (DAILY 15:34: mouth. [place] FIBER, 30 Medical PSYLLIUM-KIM Branch CROSE,) 3.4 gram/12 gram Powd tamsulosin 2017-0 Yes .4mg Take 0.4 Uni vers 0.4 mg 24 5-16 mg by ity of hr capsule 15:34: mouth [place] 30 daily. Medical Branch traMADOL 50 Yes 50mg Take 50 mg Univers mg tablet 5-16 by mouth 3 ity of 15:34: (three) [place] 30 times Medical daily. Branch furosemide Yes 40mg Take 40 mg U nivers 40 mg 5-16 by mouth ity of tablet 15:34: every [place] 30 morning Medical and Branch evening. KCL 10 mEq 0 Yes 10meq Take 10 Uni vers tablet 5-16 mEq by ity of 15:34: mouth 2 30 (two) Medical times Branch daily. TRAMADOL Yes Take by Univer s HCL 5-16 mouth. ity of (TRAMADOL 15:34: [place] ORAL) 30 Medical Branch ALPRAZOLAM 0 Yes 1mg Take 1 mg [place] (XANAX XR 5-16 by mouth ity of ORAL) 15:34: daily. [place] [address] Medical Branch Ascorbic 0 Yes 1000mg Take 1,000 U nivers Acid 1,000 5-16 mg by ity of mg TbSR 15:34: mouth 2 [place] 30 (two) Medical times Branch daily. aspirin 81 20180 Yes 81mg Take 81 mg U nivers mg chewable 5-16 by mouth ity of tablet 15:34: daily. [place] [address] Medical Branch atorvastati 0 Yes 20mg Take 20 mg Univers n 20 mg 5-16 by mouth ity of tablet 15:34: at [place] 30 bedtime. Medical Branch Cholecalcif 0 Yes 400U Take 400 [place] joanne, 5-16 Units by ity of Vitamin D3, 15:34: mouth [place] 400 unit 30 daily. Medical capsule Branch clopidogrel 2018-0 Yes 75mg Take 75 mg Univers (PLAVIX) 75 5-16 by mouth ity of mg tablet 15:34: daily. [place] [address] Medical Branch cyanocobala Yes 5000ug Take 5,000 Univers min, 5-16 mcg by ity of vitamin 15:34: mouth [place] B-12, 5,000 30 daily. Medica l mcg TbDL Branch digoxin 125 2018 Yes 125ug Take 125 U nivers mcg [...] by mouth ity of tablet 15:34: daily. [address] Branch lubiproston Yes 8ug Take 8 mcg [...] mouth ity o f tablet 15:34: daily. [address] Psyllium Yes 1{packa Take 1 Univ ers Husk-Sucros 5-16 ge} Package by it y of e (DAILY 15:34: mouth. [place] FIBER, 30 Medical PSYLLIUM-KIM Branch CROSE,) 3.4 [...] Medical and Branch evening. KCL 10 mEq 2018- Yes 10meq Take 10 Uni vers tablet 5-16 mEq by ity of 15:34: mouth 2 [place] 30 (two) Medical times Branch daily. TRAMADOL Yes Take by Univer s HCL 5-16 mouth. ity of (TRAMADOL 15:34: [place] ORAL) 30 Medical Branch ALPRAZOLAM Yes 1mg Take 1 mg [place] (XANAX XR 5-16 by mouth ity of ORAL) 15:34: daily. 30 Medical Branch Ascorbic 0 Yes 1000mg Take 1,000 U nivers Acid 1,000 5-16 mg by ity of mg TbSR 15:34: mouth 2 [place] 30 (two) Medical times Branch daily. aspirin 81 Yes 81mg Take 81 mg U nivers mg chewable 5-16 by mouth ity of tablet 15:34: daily. [place] 30 Medical Branch atorvastati Yes 20mg Take 20 [...] mouth ity of mg tablet 15:34: daily. [place] 30 Medical Branch cyanocobala 0 Yes 5000ug [...] [place] 30 times Medical daily. Branch levothyroxi 0 Yes 50ug Take 50 Uni vers ne 50 mcg 5-16 mcg by ity of tablet 15:34: mouth [place] 30 every Medical morning. Branch lisinopril 0 Yes 10mg Take 10 mg U nivers 10 mg 5-16 by mouth ity of tablet 15:34: daily. [place] 30 Medical Branch lubiproston 0 Yes 8ug Take 8 mcg Univers e (AMITIZA) 5-16 by mouth 2 it y of 8 mcg 15:34: (two) [place] capsule 30 times Medical daily with Branch meals. magnesium 0 Yes 400mg Take 400 Uni [...] tablet 15:34: daily. 30 Medical Branch Psyllium 0 Yes 1{packa Take 1 Univ ers Husk-Sucros 5-16 ge} Package by it y of e (DAILY 15:34: mouth. [place] FIBER, 30 Medical PSYLLIUM-KIM Branch CROSE,) 3.4 gram/12 gram Powd tamsulosin 2017-0 Yes .4mg Take 0.4 Uni vers 0.4 mg 24 5-16 mg by ity of hr capsule 15:34: mouth [place] 30 daily. Medical Branch traMADOL 50 0 Yes 50mg Take 50 mg Univers mg [...] 30 (two) Medical times Branch daily. TRAMADOL 2018-0 Yes Take by Univer s HCL 5-16 mouth. ity of (TRAMADOL 15:34: [place] ORAL) 30 Medical Branch ALPRAZOLAM Yes 1mg Take 1 mg [place] (XANAX XR 5-16 by mouth ity of ORAL) 15:34: daily. [place] [address] Medical Branch Ascorbic Yes 1000mg Take 1,000 U nivers Acid 1,000 5-16 mg by ity of mg TbSR 15:34: mouth 2 [place] 30 (two) Medical times Branch daily. aspirin 81 Yes 81mg Take 81 mg U nivers mg chewable 5-16 by mouth ity of tablet 15:34: daily. [place] [address] Medical Branch atorvastati Yes 20mg Take 20 [...] mouth ity of mg tablet 15:34: daily. [place] [address] Medical Branch cyanocobala Yes 5000ug Take 5,000 [...] by mouth ity of tablet 15:34: daily. [place] [address] Medical Branch lubiproston 0 Yes 8ug Take 8 mcg Univers e [...] tablet 15:34: daily. 30 Medical Branch Psyllium 2018-0 Yes 1{packa Take 1 Univ ers Husk-Sucros 5-16 ge} Package by it y of e (DAILY 15:34: mouth. [place] FIBER, 30 Medical PSYLLIUM-KIM Branch CROSE,) 3.4 gram/12 gram Powd tamsulosin 2017-0 Yes .4mg Take 0.4 Uni vers 0.4 mg 24 5-16 mg by ity of hr capsule 15:34: mouth [place] 30 daily. Medical Branch traMADOL 50 2017-0 Yes 50mg Take 50 mg Univers mg tablet 5-16 by mouth 3 ity of 15:34: (three) [place] 30 times Medical daily. Branch furosemide 2017-0 Yes 40mg Take 40 mg U nivers 40 mg 5-16 by mouth ity of tablet 15:34: every [place] 30 morning Medical and Branch evening. KCL 10 mEq 2018-0 Yes 10meq Take 10 Uni vers tablet 5-16 mEq by ity of 15:34: mouth 2 30 (two) Medical times Branch daily. TRAMADOL 2018-0 Yes Take by Univer s HCL 5-16 mouth. ity of (TRAMADOL 15:34: [place] ORAL) 30 Medical Branch ALPRAZOLAM 2017-0 Yes 1mg Take 1 mg [place] (XANAX XR 5-16 by mouth ity of ORAL) 15:34: daily. Medical Branch Ascorbic 2018-0 Yes 1000mg Take 1,000 U nivers Acid 1,000 5-16 mg by ity of mg TbSR 15:34: mouth 2 30 (two) Medical times Branch daily. benzonatate 2017- Yes 100mg Take 1 Uni vers 100 mg 2-08 capsule by ity of capsule 00:00: mouth [place] 00 every 8 Medical (eight) Branch hours as needed for Cough. metoprolol 2016-05 Yes 50mg Take 1 Unive rs tartrate 50 2-08 tablet by ity of mg tablet 00:00: mouth 2 (two) Medical times Branch daily. benzonatate 2016-05 [...] by ity of mg tablet 00:00: mouth 00 (two) Medical times Branch daily. benzonatate [...] by ity of mg tablet 00:00: mouth 00 (two) Medical times Branch daily. benzonatate 2016-05 No 100mg Take 1 [place] 100 mg 07-02 10-04 capsule by ity of capsule 00:00: 00:00 mouth [place] 00 :00 every 8 Medical (eight) Branch hours as needed for Cough. metoprolol 2016-05 No 50mg Take 1 Univ ers tartrate 50 07-02 02-05 tablet by it y of mg tablet 00:00: 00:00 mouth 2 [place] 00 :00 (two) Medical times Branch daily. sennosides- 2015-05 Yes 1{tbl} Take 1 Un [...] 00 daily. Medical 17 gram Branch powder apixaban 2015-05- No 5mg Take 1 Univer s (ELIQUIS) 5 2-15 09-20 tablet by it y of mg tablet 00:00: 00:00 mouth 2 [place] 00 :00 (two) Medical times Branch daily. Polyethylen 2015-05- No 17g Take 1 Uni vers e Glycol 2-15 07- Packet by ity o f 3350 00:00: 00:00 mouth [place] (MIRALAX) 00 :00 daily. Medical 17 gram Branch powder sennosides- 2015-05- No 1{tbl} Take 1 U nivers docusate 2-15 07- tablet by ity o f sodium 00:00: [...] mouth at [place] tablet 00 :00 bedtime. Medical Branch Rosuvastati Rosuvastati No Rosuvastat n Calcium n Calcium in Calcium Escitalopra Escitalopra No Escitalopr m Oxalate m Oxalate am Oxalate Metoprolol Metoprolol No Metoprolol Succinate Succinate Succinate Lisinopril Lisinopril No Lisinopril Xarelto Xarelto No Xarelto Farxiga Farxiga No Farxiga Torsemide Torsemide No Torsemide Digoxin Digoxin No Digoxin Tradjenta Tradjenta No Tradjenta Isosorbide Isosorbide No Isosorbide Mononitrate Mononitrate Mononitrat e Tamsulosin Tamsulosin No Tamsulosin HCl HCl HCl Levothyroxi Levothyroxi No Levothyrox ne Sodium ne Sodium ine Sodium Pantoprazol Pantoprazol No Pantoprazo e Sodium e Sodium le Sodium Immunizations Ordered Filled Immunization Date Status Comments [facility]ourc [facility] Com[facility] University of 00:00:00 [facility] Remdesivir 2021-11-21 Completed University of 00:00:00 [facility] Remdesivir 2021-11-21 Completed University of 00:00:00 [facility] Branch Remdesivir 2021-11-21 Completed University of 00:00:00 [facility] Remdesivir 2021-11-21 Completed University of 00:00:00 [facility] Remdesivir 2021-11-21 Completed University of 00:00:00 [facility] Branch Remdesivir 2021-11-21 Completed University of 00:00:00 [facility] Remdesivir 2021-11-20 Completed University of 00:00:00 [facility] Branch Remdesivir 2021-11-20 Completed University of 00:00:00 [facility] Branch Remdesivir 2021-11-20 Completed University of 00:00:00 [facility] Remdesivir 2021-11-20 Completed University of 00:00:00 [facility] Branch Remdesivir 2021-11-20 Completed University of 00:00:00 [facility] Branch Remdesivir 2021-11-20 Completed University of 00:00:00 [facility] Branch Remdesivir 2021-11-20 Completed University of 00:00:00 [facility] Branch Remdesivir 2021-11-19 Completed University of 00:00:00 [facility] Branch Remdesivir 2021-11-19 Completed University of 00:00:00 [facility] Branch Remdesivir 2021-11-19 Completed University of 00:00:00 [facility] Remdesivir 2021-11-19 Completed University of 00:00:00 [facility] Branch Remdesivir 2021-11-19 Completed University of 00:00:00 [facility] Remdesivir 2021-11-19 Completed University of 00:00:00 [place] [facility] Remdesivir 2021-11-19 Completed University of 00:00:00 [place] [facility] Remdesivir 2021-11-18 Completed University of 00:00:00 [place] [facility] Remdesivir 2021-11-18 Completed University of 00:00:00 [place] [facility] Remdesivir 2021-11-18 Completed University of 00:00:00 [place] [facility] Remdesivir 2021-11-18 Completed University of 00:00:00 [place] [facility] Remdesivir 2021-11-18 Completed University of 00:00:00 [facility] Branch Remdesivir 2021-11-18 Completed University of 00:00:00 [facility] Branch Remdesivir 2021-11-18 Completed University of 00:00:00 [facility] Vital Signs Vital Name Observation Time Observation Value Comments Source height 2022-05-27 13:00:00 70.5 [in_i] [facility] weight 2022-05-27 13:00:00 177 [lb_av] [facility] temperature 2022-05-27 13:00:00 97.9 [degF] [facility] bmi 2022-05-27 13:00:00 25.04 kg/m2 [facility] blood pressure 2022-05-27 13:00:00 102 mm[Hg] [facility] - systolic [facility] blood pressure 2022-05-27 13:00:00 60 mm[Hg] [facility] - diastolic [facility] Systolic blood 2022-02-11 20:28:00 127 mm[Hg] Univer sity of pressure [facility] Diastolic blood 2022-02-11 20:28:00 65 mm[Hg] Unive rsity of pressure [facility] Heart rate 2022-02-11 20:28:00 80 /min [facility] Body temperature 2022-02-11 20:28:00 36.56 Lynda Univ ersity [facility] Respiratory rate 2022-02-11 20:28:00 18 /min [facility] Oxygen saturation in 2022-02-11 20:28:00 91 /min University of Arterial blood by [facility] anabell Pulse oximetry Branch Body height 2022-02-11 06:15:00 175.3 cm [facility] Body weight 2022-02-11 06:15:00 77.973 kg [facility] BMI 2022-02-11 06:15:00 25.39 kg/m2 [facility] Systolic blood 2022-01-23 11:44:00 115 mm[Hg] [facility] Diastolic blood 2022-01-23 11:44:00 65 mm[Hg] [facility]ive [facility]ity [facility] Heart rate 2022-01-23 11:44:00 60 /min [facility] Respiratory rate 2022-01-23 11:44:00 20 /min [facility] Oxygen saturation in 2022-01-23 11:44:00 93 /min [facility] Arterial blood by [facility] Pulse oximetry Branch Body temperature 2022-01-23 10:06:00 36.39 Lynda [facility] Body height 2022-01-23 10:06:00 180.3 cm [facility] Body weight 2022-01-23 10:06:00 83.915 kg [facility] BMI 2022-01-23 10:06:00 25.80 kg/m2 [facility] [place] [facility] [place] Heart rate 2022-01-06 12:45:00 73 /min [facility] Oxygen saturation in 2022-01-06 12:45:00 96 /min [facility] Arterial blood by [facility] anabell Pulse oxim[facility] Branch Systolic blood 2022-01-06 12:00:00 137 mm[Hg] [facility] Diastolic blood 2022-01-06 12:00:00 78 mm[Hg] [facility]ive [facility] Respiratory rate 2022-01-06 12:00:00 16 /min [facility] Body height 2022-01-06 10:49:00 180.3 cm [facility] Body weight 2022-01-06 10:49:00 81.647 kg [facility] BMI 2022-01-06 10:49:00 25.10 kg/m2 [facility] Systolic blood 2021-12-18 02:00:00 121 mm[Hg] [facility] Diastolic blood 2021-12-18 02:00:00 65 mm[Hg] [facility] Heart rate 2021-12-18 02:00:00 70 /min [facility] Oxygen saturation in 2021-12-18 02:00:00 98 /min [facility] [place] [employer] anabell P[facility] Respiratory rate 2021-12-18 01:00:00 15 /min [facility] Body temperature 2021-12-17 22:57:00 36.56 Lynda [facility] Body weight 2021-12-17 22:57:00 84.823 kg [facility] BMI 2021-12-17 22:57:00 26.08 kg/m2 [facility] Systolic blood 2021-11-22 16:09:00 126 mm[Hg] [facility] Diastolic blood 2021-11-22 16:09:00 62 mm[Hg] [facility] Heart rate 2021-11-22 16:09:00 49 /min [facility] Body temperature 2021-11-22 16:09:00 35.56 Lynda [facility] Respiratory rate 2021-11-22 16:09:00 17 /min [facility] Oxygen saturation in 2021-11-22 16:09:00 93 /min [facility] [place] [employer] anabell Pulse oxim[facility] Body weight 2021-11-22 08:00:00 84.959 kg [facility] BMI 2021-11-22 08:00:00 26.12 kg/m2 [facility] Body height 2021-11-18 13:30:00 180.3 cm [facility] Systolic blood 2021-09-11 13:00:00 150 mm[Hg] [facility] Diastolic blood 2021-09-11 13:00:00 97 mm[Hg] [facility]ive [facility]ity [facility] Heart rate 2021-09-11 13:00:00 73 /min [facility] Respiratory rate 2021-09-11 13:00:00 14 /min [facility] Oxygen saturation in 2021-09-11 13:00:00 95 /min [facility] Arterial blood by [facility] Pulse oximetry Branch Body temperature 2021-09-11 10:14:03 36.33 Lynda [facility] Body height 2021-09-11 10:05:00 180.3 cm [facility] Body weight 2021-09-11 10:05:00 84.823 kg [facility] BMI 2021-09-11 10:05:00 26.08 kg/m2 [facility] Systolic blood 2021-07-25 23:00:00 151 mm[Hg] [facility] Diastolic blood 2021-07-25 23:00:00 79 mm[Hg] Unive rsity [facility] Heart rate 2021-07-25 23:00:00 64 /min [facility] Respiratory rate 2021-07-25 23:00:00 16 /min [facility] Oxygen saturation in 2021-07-25 23:00:00 96 /min [facility] Arterial blood by [facility] Pulse oximetry Branch Body temperature 2021-07-25 21:21:00 36.94 Lynda [facility] Body weight 2021-07-25 21:21:00 85.73 kg [facility] BMI 2021-07-25 21:21:00 26.36 kg/m2 [facility] Systolic blood 2021-07-13 04:00:00 156 mm[Hg] Univer [facility]ity [facility] Diastolic blood 2021-07-13 04:00:00 85 mm[Hg] Unive rsity [facility] Heart rate 2021-07-13 04:00:00 74 /min [facility] Respiratory rate 2021-07-13 04:00:00 17 /min [facility] Oxygen saturation in 2021-07-13 04:00:00 93 /min [facility] Arterial blood by [facility] anabell Pulse oximetry Branch Body temperature 2021-07-13 01:30:00 36.44 Lynda [facility] Body height 2021-07-13 01:27:00 180.3 cm [facility] Body weight 2021-07-13 01:27:00 85.73 kg [facility] BMI 2021-07-13 01:27:00 26.36 kg/m2 [facility] Systolic blood 2021-02-27 00:48:00 112 mm[Hg] [facility] Diastolic blood 2021-02-27 00:48:00 68 mm[Hg] [facility]ive [facility] Heart rate 2021-02-27 00:48:00 82 /min [facility] Body temperature 2021-02-27 00:48:00 36.06 Lynda [facility] Respiratory rate 2021-02-27 00:48:00 18 /min [facility] Oxygen saturation in 2021-02-27 00:48:00 92 /min [facility] blood by [place] [employer] anabell P[facility] oxim[facility] Body height 2021-02-25 21:32:00 177.8 cm [facility] Body weight 2021-02-25 21:32:00 85.957 kg [facility] BMI 2021-02-25 21:32:00 27.19 kg/m2 [facility] Systolic blood 2021-02-17 23:00:00 126 mm[Hg] [facility] Diastolic blood 2021-02-17 23:00:00 67 mm[Hg] Unive rsity [facility] Heart rate 2021-02-17 23:00:00 67 /min [facility] Respiratory rate 2021-02-17 23:00:00 22 /min [facility] Oxygen saturation in 2021-02-17 23:00:00 96 /min [facility] by [place] [employer] an[facility]ell P[facility] o[facility] Body temperature 2021-02-17 19:20:00 36.28 Lynda [facility] Body weight 2021-02-17 19:20:00 93.895 kg [facility] BMI 2021-02-17 19:20:00 29.70 kg/m2 [facility] Systolic blood 2020-07-29 21:00:00 112 mm[Hg] [facility]iver [facility] Diastolic blood 2020-07-29 21:00:00 57 mm[Hg] Unive rsity [facility] Heart rate 2020-07-29 21:00:00 66 /min [facility] Respiratory rate 2020-07-29 21:00:00 20 /min [facility] Oxygen saturation in 2020-07-29 21:00:00 100 /min [facility]terial blood by [place] [employer] Pulse oximetry [facility] Body temperature 2020-07-29 19:28:00 35.83 Lynda [facility] Body weight 2020-07-29 19:28:00 93.895 kg [facility] BMI 2020-07-29 19:28:00 29.70 kg/m2 [facility] Systolic blood 2020-06-29 22:19:00 101 mm[Hg] [facility]iver [facility] Diastolic blood 2020-06-29 22:19:00 60 mm[Hg] Unive rsity [facility] Heart rate 2020-06-29 22:06:00 92 /min [facility] Body temperature 2020-06-29 22:06:00 37.06 Lynda [facility] Respiratory rate 2020-06-29 22:06:00 18 /min [facility] Oxygen saturation in 2020-06-29 22:06:00 98 /min [facility] Arterial blood by [employer] anabell Pulse oximetry Branch Body height 2020-06-28 09:00:00 177.8 cm [facility] Body weight 2020-06-28 09:00:00 94.167 kg [facility] BMI 2020-06-28 09:00:00 29.79 kg/m2 [facility] Systolic blood 2019-09-01 15:06:00 161 mm[Hg] Univer [facility]ity [facility] Diastolic blood 2019-09-01 15:06:00 82 mm[Hg] [facility] rsity of pressure [facility] Heart rate 2019-09-01 15:06:00 80 /min [facility] Respiratory rate 2019-09-01 15:06:00 20 /min [facility] Body height 2019-09-01 15:06:00 172.7 cm [facility] Body weight 2019-09-01 15:06:00 94.53 kg [facility] BMI 2019-09-01 15:06:00 31.69 kg/m2 [facility] Oxygen saturation in 2019-09-01 15:06:00 98 /min [facility] Arterial blood by [facility] Pulse oximetry [place] Procedures Procedure Date / Time Performing Clinician Source Performed DIGOXIN 2022-02-11 19:15[facility]22-02-11 16:49:00 [facility] POCT GLUCOSE 2022-02-11 16:40:00 [facility] (AUTOMATED) [facility] HB ECG ROUTINE & RHYTHM 2022-02-11 15:07:19 Macarena Hernandez [facility] STRIP [facility] POCT GLUCOSE 2022-02-11 13:11:00 [facility] (AUTOMATED) [facility] MAGNESIUM 2022-02-11 10:08:00 [facility] TROPONIN I 2022-02-11 10:08:00 Marck Hollingsworth [facility] BASIC METABOLIC PANEL 2022-02-11 10:08:00 Lexii Solano [facility] (NA, K, CL, CO2, Medical Branch GLUCOSE, BUN, CREATININE, CA) XR CHEST 1 VW 2022-02-11 01:04:00 Jamari Folyd [facility] CT CHEST PULMONARY 2022-02-11 01:00:00 Jamari Floyd [facility] ANGIOGRAM Medical Branch TROPONIN I 2022-02-11 00:10:00 Jamari Floyd [facility] COMP. METABOLIC PANEL 2022-02-11 00:10:00 Jamari Floyd [facility] ([id number]) Medical Branch DIGOXIN 2022-02-11 00:10:00 Marck Hollingsworth [facility] CBC WITH DIFF 2022-02-11 00:10:00 Jamari Floyd [facility] N-TERMINAL PRO-BNP 2022-02-11 00:10:00 Jamari Floyd [facility] COVID-19 (ID NOW RAPID 2022-02-11 00:10:00 Jamari Floyd [facility] TESTING) Medical Branch HB ECG ROUTINE & RHYTHM 2022-02-11 00:06:21 [facility] 2022-02-10 05:01:00 Doctor Unassigned, No [facility] Name Medical Branch XR CHEST 1 VW 2022-01-23 10:20:06 Malik Granados [facility] TROPONIN I 2022-01-23 10:08:00 Malik Granados [facility] COMP. METABOLIC PANEL 2022-01-23 10:08:00 Malik Granados [facility] ([id number]) Medical Branch CBC WITH DIFF 2022-01-23 10:08:00 Malik Granados [facility] PROTHROMBIN TIME / INR 2022-01-23 10:08:00 Malik Granados [facility] N-TERMINAL PRO-BNP 2022-01-23 10:08:00 Malik Granados [facility] COVID-19 (ID NOW RAPID 2022-01-23 10:08:00 Malik Granados [facility] TESTING) Medical Branch XR CHEST 1 VW 2022-01-06 11:07:40 Singer [facility] MAGNESIUM 2022-01-06 10:51:00 [facility] TROPONIN I 2022-01-06 10:51:00 Singer [facility] COMP. METABOLIC PANEL 2022-01-06 10:51:00 Yovani Bautista [facility] ([id number]) Medical Branch CBC WITH DIFF 2022-01-06 10:51:00 Singer [facility] N-TERMINAL PRO-BNP 2022-01-06 10:51:00 Singer [facility] COVID-19 (ID NOW RAPID 2021-12-18 01:10:00 Carin Solis [facility] TESTING) Medical Branch CT STROKE ANGIOGRAM 2021-12-18 00:21:46 Carin Solis [facility] HEAD Medical Branch CT STROKE ANGIOGRAM 2021-12-18 00:21:[address] [facility] NECK [facility] CT HEAD WO CONTRAST 2021-12-18 00:13:32 Amisha [facility] XR CHEST 1 VW 2021-12-17 23:52:00 Amisha [facility] TROPONIN I 2021-12-17 23:38:00 Amisha [facility] COMP. METABOLIC PANEL 2021-12-17 23:38:00 Carin Solis [facility] ([id number]) Medical Branch CBC WITH DIFF 2021-12-17 23:38:00 Amisha [facility] URINALYSIS 2021-12-17 23:38:00 Amisha [facility] N-TERMINAL PRO-BNP 2021-12-17 23:38:00 Amisha [facility] POCT GLUCOSE 2021-11-22 16:08:00 [facility] POCT GLUCOSE 2021-11-22 12:46:00 [facility] POCT GLUCOSE 2021-11-21 21:55:00 Brayden [facility] (AUTOMATED) [facility] POCT GLUCOSE 2021-11-21 17:08:00 Brayden [facility] (AUTOMATED) [facility] [place] POCT GLUCOSE 2021-11-21 13:07:00 [facility] BASIC METABOLIC PANEL 2021-11-21 10:10:00 Brayden Jessica [facility] (NA, K, CL, CO2, Medical Branch GLUCOSE, BUN, CREATININE, CA) CBC WITH DIFF 2021-11-21 10:10:00 Brayden [facility] POCT GLUCOSE 2021-11-21 04:51:00 Brayden [facility] (AUTOMATED) Medical Branch POCT GLUCOSE 2021-11-21 01:04:00 Brayden [facility] (AUTOMATED) Medical Branch POCT GLUCOSE 2021-11-20 21:12:00 Brayden [facility] (AUTOMATED) Medical Branch POCT GLUCOSE 2021-11-20 16:06:00 Brayden [facility] (AUTOMATED) [facility] POCT GLUCOSE 2021-11-20 12:42:00 Brayden [facility] (AUTOMATED) [facility] MAGNESIUM 2021-11-20 11:11:00 Brayden [facility] TROPONIN I 2021-11-20 11:11:00 [employer] [facility] BASIC METABOLIC PANEL 2021-11-20 11:11:00 Jessica Owen [facility] (NA, K, CL, CO2, Medical Branch GLUCOSE, BUN, CREATININE, CA) CBC WITH DIFF 2021-11-20 11:11:00 Brayden [facility] N-TERMINAL PRO-BNP 2021-11-20 11:11:00 [employer] [facility] POCT GLUCOSE 2021-11-20 01:51:00 Brayden [facility] (AUTOMATED) [facility] URIC ACID, URIC RANDOM 2021-11-19 22:09:00 Roshan Limon [facility] POCT GLUCOSE 2021-11-19 21:18:00 Brayden [facility] (AUTOMATED) [facility] POCT GLUCOSE 2021-11-19 15:59:00 Mehul mateo [facility] (AUTOMATED) [facility] TRANSTHORACIC ECHO 2021-11-19 15:50:00 [employer] [facility] (TTE) COMPLETE [facility] POCT GLUCOSE 2021-11-19 13:08:00 Garett Armas [facility] (AUTOMATED) Medical Branch PHOSPHORUS 2021-11-19 09:36:00 Mehul mateo [facility] CREATINE KINASE 2021-11-19 09:36:00 Mehul mateo [facility] URIC ACID 2021-11-19 09:36:00 Mehul mateo [facility] MAGNESIUM 2021-11-19 09:36:00 Mehul [facility] TROPONIN I 2021-11-19 09:36:00 Mehul [facility] COMP. METABOLIC PANEL 2021-11-19 09:36:00 Mehul mateo [facility] ([id number]) [facility] CBC WITH DIFF 2021-11-19 09:36:00 Mehul [facility] N-TERMINAL PRO-BNP 2021-11-19 09:36:00 Mehul mateo [facility] LACTIC ACID WHOLE BLOOD 2021-11-18 23:39:00 Morgan [facility] LACTATE DEHYDROGENASE 2021-11-18 23:30:00 Mehul mateo [facility] TROPONIN I 2021-11-18 23:30:00 Mehul [facility] URINALYSIS 2021-11-18 18:03:00 Mehul [facility] URINE CULTURE 2021-11-18 18:03:00 Mehul [facility] PROTEIN CREAT RATIO 2021-11-18 18:03:00 Garett Armas [facility] URINE RANDOM [facility] UREA NITROGEN, URINE 2021-11-18 18:03:00 Mehul mateo [facility] RANDOM [facility] Branch SODIUM, URINE RANDOM 2021-11-18 18:03:00 Mehul mateo [facility] TROPONIN I 2021-11-18 17:17:00 Mehul mateo [facility] CREATINE KINASE 2021-11-18 14:38:00 Mehul [facility] C-REACTIVE PROTEIN 2021-11-18 14:38:00 Mehul mateo [facility] TROPONIN I 2021-11-18 14:38:00 Mehul [facility] PROTHROMBIN TIME / INR 2021-11-18 14:38:00 Mehul mateo [facility] D-DIMER 2021-11-18 14:38:00 Mehul [facility] VITAMIN B12, LEVEL 2021-11-18 14:37:00 Mehul mateo [facility] VITAMIN D, 25-OH 2021-11-18 14:37:00 Mehul [facility] PROCALCITONIN 2021-11-18 14:37:00 Mehul [facility] AC VBG + LACTIC ACID 2021-11-18 14:36:00 Mehul mateo [facility] XR CHEST 1 VW 2021-11-18 10:46:11 Singer Yovani [facility] COVID-19 (ID NOW RAPID 2021-11-18 10:39:00 Yovani Bautista [facility] TESTING) Medical Branch PHOSPHORUS 2021-11-18 10:30:00 Mehul mateo [facility] URIC ACID 2021-11-18 10:30:00 Mehul [facility] LIPASE 2021-11-18 10:30:00 [facility] 2021-11-18 10:30[facility]00 [facility] 2021-11-18 10:30:00 Singer [facility] THYROID STIMULATING 2021-11-18 10:30:00 Garett Armas [facility] HORMONE [facility] COMP. METABOLIC PANEL 2021-11-18 10:30:00 Yovani Bautista [facility] ([id number]) Medical Branch LIPID PANEL 2021-11-18 10:30:00 Mehul mateo [facility] ([id number])(TOTAL Medical Branch CHOLESTEROL, TRIGLYCERIDES, HDL) IRON PANEL 2021-11-18 10:30:00 Mehul [facility] DIGOXIN 2021-11-18 10:30:00 Mehul mateo [facility] SEDIMENTATION RATE 2021-11-18 10:30:00 Mehul [facility] CBC WITH DIFF 2021-11-18 10:30:00 Singer [facility] GLYCOSYLATED HEMOGLOBIN 2021-11-18 10:30:00 Mehul [facility] (A1C) [facility] N-TERMINAL PRO-BNP 2021-11-18 10:30:00 Singer [facility] LACTIC ACID WHOLE BLOOD 2021-11-18 10:30:00 Singer [facility] HB ECG ROUTINE & RHYTHM 2021-11-18 10:23:37 Singer [facility] EKG-12 LEAD 2021-09-11 12:13:52 Malik Granados [facility] CT ABDOMEN PELVIS W 2021-09-11 12:02:00 Malik Granados [facility] CONTRAST [facility] Branch LIPASE 2021-09-11 10:11:00 Malik Granados [facility] TROPONIN I 2021-09-11 10:11:00 Malik Granados [facility] COMP. METABOLIC PANEL 2021-09-11 10:11:00 Malik Granados [facility] ([id number]) Medical Branch DIGOXIN 2021-09-11 10:11:00 Malik Granados [facility] CBC WITH DIFF 2021-09-11 10:11:00 Malik Granados [facility] URINALYSIS 2021-09-11 10:11:00 Malik Granados [facility] POCT GLUCOSE 2021-09-11 10:02:00 Malik Granados [facility] (AUTOMATED) [facility] ASSIGNMENT OF BENEFITS 2021-07-25 22:26:25 Doctor Unassigned, No [facility] Name [facility] XR CHEST 1 VW 2021-07-25 22:13:52 Monico Mariee [facility] URINALYSIS 2021-07-25 21:51:00 Monico [facility]e [facility] LIPASE 2021-07-25 21:42:00 Monico Mariee [facility] Medical Branch MAGNESIUM 2021-07-25 21:42:00 Monico Mariee [facility] TROPONIN I 2021-07-25 21:42:00 Moinco Mariee [facility] COMP. METABOLIC PANEL 2021-07-25 21:42:00 Monico Mariee [facility] ([id number]) Medical Branch DIGOXIN 2021-07-25 21:42:00 Monico Mariee [facility] CBC WITH DIFF 2021-07-25 21:42:00 Monico Mariee [facility] N-TERMINAL PRO-BNP 2021-07-25 21:42:00 Monico Mariee [facility] COVID-19 (ID NOW RAPID 2021-07-25 21:42:00 Monico Mariee [facility] TESTING) [facility] CONSENT/REFUSAL FOR 2021-07-25 21:34:33 Doctor Unassigned, No Un [facility] DIAGNOSIS AND TREATMENT Name Medical Branch POCT GLUCOSE 2021-07-25 21:24:00 Monico Mariee [facility] (AUTOMATED) [facility] EKG-12 LEAD 2021-07-13 04:31:38 Malik Granados [facility] CT ABDOMEN PELVIS W 2021-07-13 03:48:17 Malik Granados [facility] CONTRAST Medical Branch LIPASE 2021-07-13 01:45:00 Malik Granados [facility] TROPONIN I 2021-07-13 01:45:00 Malik Granados [facility] COMP. METABOLIC PANEL 2021-07-13 01:45:00 Malik Granados [facility] ([id number]) [facility] [place] CBC WITH DIFF 2021-07-13 01:45:00 Malik Granados [facility] COVID-19 (ID NOW RAPID 2021-07-13 01:45:00 Malik Granados [facility] TESTING) [facility] [place] NOTICE OF PRIVACY 2021-07-13 01:37:21 Doctor Unassigned, No [facility] PRACTICES Name Medical Branch CONSENT/REFUSAL FOR 2021-07-13 01:36:54 Doctor Unassigned, No Un [facility] DIAGNOSIS AND TREATMENT Name Medical Branch POCT GLUCOSE 2021-02-26 21:34:00 Cady [facility] (AUTOMATED) [facility] TRANSTHORACIC ECHO 2021-02-26 20:15:00 Cady [facility] (TTE) COMPLETE [facility] CT ABDOMEN PELVIS WO 2021-02-26 17:46:59 Lars Ann [facility] CONTRAST [facility] TROPONIN I 2021-02-26 [facility]:20[facility] 2021-02-26 [facility] 2021-02-26 16:15:00 Cady [facility] (AUTOMATED) [facility] POCT GLUCOSE 2021-02-26 12:49:00 Cady [facility] (AUTOMATED) [facility] XR LUMBAR SPINE 2 VW 2021-02-26 12:12:46 [facility] 2021-02-26 08:36:[address] [facility] TROPONIN I 2021-02-26 08:36:00 Annie [facility] THYROID STIMULATING 2021-02-26 08:36[facility] CBC WITH DIFF 2021-02-26 08:36[facility]IN 2021-02-26 08:36:00 [place] [facility] (A1C) [facility] N-TERMINAL PRO-BNP 2021-02-26 08:36:00 [facility]OL[facility] PAN[facility] 2021-02-26 08:20:00 Annie [facility] (NA, K, CL, CO2, Medical Branch GLUCOSE, BUN, CREATININE, CA) POCT GLUCOSE 2021-02-26 08:03:00 Cady [facility] (AUTOMATED) [facility] BASIC METABOLIC PANEL 2021-02-26 04:55:00 Ricky Weeks [facility] (NA, K, CL, CO2, Medical Branch GLUCOSE, BUN, CREATININE, CA) POCT GLUCOSE 2021-02-26 00:42:00 Cady [facility] (AUTOMATED) Medical Branch XR CHEST 1 VW 2021-02-25 19:25:17 Monico Mariee [facility] MAGNESIUM 2021-02-25 19:08:00 Monico Mariee [facility] TROPONIN I 2021-02-25 19:08:00 Monico Mariee [facility] COMP. METABOLIC PANEL 2021-02-25 19:08:00 Monico Mariee [facility] ([id number]) Medical Branch DIGOXIN 2021-02-25 19:08:00 Monico Mariee [facility] CBC WITH DIFF 2021-02-25 19:08:00 Monico Mariee [facility] PROTHROMBIN TIME / INR 2021-02-25 19:08:00 Monico Mariee [facility] ACTIVATED PARTIAL 2021-02-25 19:08:00 Monico Mariee [facility] THRMPLAS BITA [facility] N-TERMINAL PRO-BNP 2021-02-25 19:08:00 Monico Mariee [facility] COVID-19 (ID NOW RAPID 2021-02-25 19:08:00 Monico Mariee [facility] TESTING) Medical Branch HB ECG ROUTINE & RHYTHM 2021-02-25 18:59:54 Monico Mariee [facility] XR CERVICAL SPINE 3 VW 2021-02-17 21:43:52 Fahad [facility] XR HIPS 3 VW RIGHT 2021-02-17 20:54:28 Fahad Griggs [facility] XR KNEE <3 VW RIGHT 2021-02-17 20:54:28 Fahad Griggs [facility] XR RIBS 3 VW RIGHT 2021-02-17 20:54:28 Fahad Griggs [facility] XR CHEST 1 VW 2021-02-17 19:35:15 Lyle Ying [facility] CT CERVICAL SPINE WO 2020-07-29 19:55:45 Fahad Griggs [facility] CONTRAST [facility] CT HEAD WO CONTRAST 2020-07-29 19:55:45 Fahad Griggs [facility] CONSENT/REFUSAL FOR 2020-07-29 19:15:11 Doctor Unassigned, No Un [facility] DIAGNOSIS AND TREATMENT Name Medical Branch POCT GLUCOSE 2020-06-29 22:13:00 Marlena Martin [facility] (AUTOMATED) [facility] POCT GLUCOSE 2020-06-29 17:32:00 Marlena Martin [facility] (AUTOMATED) [facility] POCT GLUCOSE 2020-06-29 10:56:00 Marlena Martin [facility] (AUTOMATED) [facility] PHOSPHORUS 2020-06-29 10:54:00 Mehul [facility] URIC ACID 2020-06-29 10:54:00 Mehul mateo [facility] MAGNESIUM 2020-06-29 10:54:00 Mehul [facility] TROPONIN I 2020-06-29 10:54:00 Suad [facility] COMP. METABOLIC PANEL 2020-06-29 10:54:00 Mehul mateo [facility] ([id number]) [facility] CBC WITH DIFF 2020-06-29 10:54:00 Suad [facility] N-TERMINAL PRO-BNP 2020-06-29 10:54:00 Garett Armas [facility] POCT GLUCOSE 2020-06-29 05:06:00 Marlena Martin [facility] (AUTOMATED) [facility] LACTATE DEHYDROGENASE 2020-06-29 05:04:00 Mehul [facility] TROPONIN I 2020-06-29 05:04:00 Roselyn Borjas [facility] POCT GLUCOSE 2020-06-29 01:58:00 Marlena Martin [facility] (AUTOMATED) Medical Branch POCT GLUCOSE 2020-06-28 22:41:00 Marlena Martin [facility] (AUTOMATED) [facility] CYTO PLEURAL FLUID 2020-06-28 19:51:00 Garett Armas [facility] HB ECG ROUTINE & RHYTHM 2020-06-28 19:48:29 Roselyn Borjas [facility] TROPONIN I 2020-06-28 19:45:00 Roselyn Borjas [facility] IR THORACENTESIS WITH 2020-06-28 19:44:48 Garett Armas [facility] IMAGING [facility] XR CHEST 1 VW 2020-06-28 19:44:32 Delfin Guadalupe [facility] AMYLASE BODY FLUID 2020-06-28 19:20:00 Garett Armas [facility] GLUCOSE BODY FLUID 2020-06-28 19:20:00 Mehul [facility] PH, BODY FLUID 2020-06-28 19:20:00 Mehul mateo [facility] T.PROTEIN BODY FLUID 2020-06-28 19:20:00 Garett Armas [facility] LDH TOTAL BODY FLUID 2020-06-28 19:20:00 Garett Armas [facility] BODY FLUID DIRECT COUNT 2020-06-28 19:20:00 Garett Armas [facility] BODY FLUID 2020-06-28 19:20:00 Mehul mateo [facility] CULTURE(AEROBIC/ANAEROB Medical Branch IC) POCT GLUCOSE 2020-06-28 18:06:00 Marlena Martin [facility] (AUTOMATED) Medical Branch POCT GLUCOSE 2020-06-28 14:07:00 Marlena Martin [facility] (AUTOMATED) Medical Branch PNEUMOCOCCAL ANTIGEN 2020-06-28 12:04:00 Garett Armas [facility] URINE CULTURE 2020-06-28 12:04:00 Garett Armas [facility] UREA NITROGEN, URINE 2020-06-28 12:04:00 Garett Armas [facility] SODIUM, URINE RANDOM 2020-06-28 12:04:00 Garett Armas [facility] ADC / LCC - DRUG SCREEN 2020-06-28 12:04:00 Garett Armas [facility] TRIAGE [facility] PROTEIN CREAT RATIO 2020-06-28 12:04[facility] Branch PHOSPHORUS 2020-06-28 11:41:00 Mehul mateo [facility] LACTATE DEHYDROGENASE 2020-06-28 11:41:00 Mehul mateo [facility] URIC ACID 2020-06-28 11:41:00 Mehul mateo [facility] MAGNESIUM 2020-06-28 11:41:00 Mehul mateo [facility] VITAMIN B12, LEVEL 2020-06-28 11:41:00 Garett Armas [facility] FOLATE 2020-06-28 11:41:00 Mehul mateo [facility] TROPONIN I 2020-06-28 11:41:00 Mehul [facility] COMP. METABOLIC PANEL 2020-06-28 11:41:00 Mehul mateo [facility] ([id number]) [facility] IRON PANEL 2020-06-28 11:41:00 Mehul mateo [facility] SEDIMENTATION RATE 2020-06-28 11:41:00 Mehul mateo [facility] CBC WITH DIFF 2020-06-28 11:41:00 Mehul mateo [facility] PROTHROMBIN TIME / INR 2020-06-28 11:41:00 Garett Armas [facility] N-TERMINAL PRO-BNP 2020-06-28 11:41:00 Mehul mateo [facility] VITAMIN D, 25-OH 2020-06-28 11:41:00 Mehul [facility] PROCALCITONIN 2020-06-28 11:41:00 Mehul [facility] BLOOD CULTURE SCREEN 2020-06-28 03:22:00 Marlena Martin [facility] BLOOD CULTURE SCREEN 2020-06-28 03:00:00 Mralena Martin [facility] CT CHEST PULMONARY 2020-06-28 01:21:00 Marlena Martin [facility] ANGIOGRAM [facility] XR CHEST 1 VW 2020-06-28 00:31:51 Singer [facility] PHOSPHORUS 2020-06-28 00:14:00 Mehul [facility] URIC ACID 2020-06-28 00:14:00 Mehul [facility] LIPASE 2020-06-28 00:14:00 Singer [facility] MAGNESIUM 2020-06-28 00:14:00 Mehul [facility] FERRITIN SERUM 2020-06-28 00:14:00 Mehul [facility] TROPONIN I 2020-06-28 00:14:00 Singer [facility] THYROID STIMULATING 2020-06-28 00:14:00 Garett Armas [facility] HORMONE [facility] COMP. METABOLIC PANEL 2020-06-28 00:14:00 Yovani Bautista [facility] ([id number]) Medical Branch LIPID PANEL 2020-06-28 00:14:00 Mehul mateo [facility] ([id number])(TOTAL Medical Branch CHOLESTEROL, TRIGLYCERIDES, HDL) CBC WITH DIFF 2020-06-28 00:14:00 Singer [facility] GLYCOSYLATED HEMOGLOBIN 2020-06-28 00:14:00 Mehul mateo [facility] (A1C) [facility] PROTHROMBIN TIME / INR 2020-06-28 00:14:00 Yovani Bautista [facility] ACTIVATED PARTIAL 2020-06-28 00:14:00 Bautista, Yovani [facility] N-TERMINAL PRO-BNP 2020-06-28 00:14:00 [facility] COVID-19 (ID NOW RAPID 2020-06-28 00:14:00 Yovani Bautista [facility] TESTING) [facility] [place] HB ECG ROUTINE & RHYTHM 2020-06-28 00:03:42 Yovani Bautista [facility] CONSENT/REFUSAL FOR 2020-06-27 23:25:14 [facility]igned[facility] Name [facility] PHYSICIAN ORDERS 2019-09-01 05:01:00 Doctor Unassigned, No Unive [facility] Name [facility] Encounters Start End Encounter Admission Attending Care Care Encounter Source Date/Time Date/Time Type Type Clinicians Facility Department ID 2022-06-25 Outpatient STLMLC STLMLC [id number] Common 11:36:01 [id number] [facility] 2022-05-27 Outpatient STLMLC STLMLC [id number] Common 13:11:03 [id number] [facility] 2022-05-27 2022-05-27 NON-BILLAB STLMLC STLMLC [id number] Common 00:00:00 00:00:00 LE VISIT [facility] 2022-02-12 2022-02-12 Transition BILLIE Vale [id number] Univers 00:00:00 00:00:00 of Care Sonja BONE [id number] it y [facility] [id number] [address] 2022-02-10 2022-02-11 Outpatient X [facility] [id number] Univers 18:24:00 17:04:00 CHAITANYA doe [facility] 2022-02-10 2022-02-11 Emergency Jamari Floyd 1.2.84 0.114 [id number] Univers 18:24:00 17:04:00 Chaitanya Hatch [id number] [facility] 4.2.7.2.686 [place] [id number] [facility] 100 Branch 2022-01-23 2022-01-23 Emergency [facility] ERT [id number] Univers 05:05:00 06:51:00 MALIK doe [facility] 2022-01-23 2022-01-23 Emergency [facility] [id number] Univers 05:05:00 06:51:00 Malik MORALES [id number] ity [facility] [id number] [facility] [id number] [facility] 0[address] [place] 2022-01-06 2022-01-06 Emergency [facility] [id number] Univers 05:51:00 07:55:00 Yovani MORALES [id number] i ty [facility] 4.2.7.2.686 [facility] [id number] [address] 2022-01-06 2022-01-06 Emergency X [facility] ERT [id number] Univers 05:51:00 07:55:00 YOVANI doe [facility] 2021-12-17 2021-12-17 Emergency X [facility] ERT [id number] Univers 17:58:00 21:25:00 CARIN doe [facility] 2021-12-17 2021-12-17 Emergency [facility] [id number] Univers 17:58:00 21:25:00 Carin MENDOZASUZANNA [id number] i ty [facility] 4.2.7.2.686 [facility] [id number] [facility] 084 Branch 2021-11-26 2021-11-26 Transition BILLIE Elizabeth 1.2.840.114 [id number] Univers 00:00:00 00:00:00 of Care Beba BONE [id number] i [place] 4[place]2.7.2.686 [place] [id number] [facility] 403 Branch 2021-11-18 2021-11-22 Inpatient X BRAYDEN [facility] FRANC[facility] [id number] Univers 05:21:00 12:20:00 JESSICA itamy [facility] 2021-11-18 2021-11-22 [facility] Yovani Bautista [facility] 1.2.840.1 [id number] Univers 05:21:00 12:20:00 Garett MonsonSUZANNA [id number] ity of [place] 4.2.7.2.686 [facility] [id number] [address] 2021-09-11 2021-09-11 Emergency X [facility] ERT [id number] Univers 05:09:00 08:26:00 MALIK ity [facility] 2021-09-11 2021-09-11 [facility] [id number] Univers 05:09:00 08:26:00 Raudelyeny Katy MORALES [id number] ity [facility] 4.2.7.2.686 [facility] [id number] [address] 2021-07-25 2021-07-25 Emergency [facility] ERT [id number] Univers 15:23:00 17:37:00 MONICO itamy [facility] 2021-07-25 2021-07-25 [facility] [id number] Univers 15:23:00 17:37:00 Monico Kaylyn MENDOZASUZANNA 350.1.13.10 i ty alfonzo [facility] 4.2.7.2.686 [facility] [id number] [address] 2021-07-12 2021-07-12 Emergency X [facility] ERT [id number] Univers 19:24:00 22:58:00 MALIK ity [facility] 2021-07-12 2021-07-12 [facility] [id number] Univers 19:24:00 22:58:00 Malik MORALES 350.1.13.10 ity alfonzo [facility] 4.2.7.2.686 [facility] [id number] [address] 2021-02-27 2021-02-27 Transition ValeBillie 1.2.840.114 [id number] Univers 00:00:00 00:00:00 of Care Sonja Zamarripay 350.1.13.10 it y of [place] 4.2.7.2.686 [facility] [id number] [facility] 403 Branch 2021-02-25 2021-02-26 Emergency Brien Marieen R [facility] 1.2.840. 114 [id number] Univers 13:55:00 20:18:00 Morgan Lazar [id number] ity of [place] 4.2.7.2.686 [facility] [id number] [facility] 081 Branch 2021-02-25 2021-02-25 Emergency X KODI [facility] ERT [id number] Univers 13:55:00 13:55:00 MONICO brook [facility] 2021-02-17 2021-02-17 Emergency [facility], [facility] 1.2.840.114 [id number] Univers 14:26:00 18:33:00 Fahad Granville 350.1.13.10 i ty of [place] 4.2.7.2.686 [facility] [id number] [address] 2021-02-17 2021-02-17 Emergency X [facility] ERT [id number] Univers 14:26:00 14:26:[address] [facility] 2020-07-29 2020-07-29 Emergency [facility] 1.2.840.114 [id number] Univers 13:39:00 16:33:00 Fahad Granville 350.1.13.10 i ty of [place] 4.2.7.2.686 [facility] [id number] [address] 2020-07-29 2020-07-29 Emergency X GRIGGS, [facility] ERT [id number] Univers 13:39:00 13:39:00 FAHAD doe [facility] 2020-07-04 2020-07-04 Transition Bhavya Anishaluis 1.2.840.114 [id number] Univers 00:00:00 00:00:00 of Care Bonny Zamarripay 350.1.13.10 it y of [place] [id number] [facility] 403 Branch 2020-06-27 2020-06-29 Hospital Veronica Marlena Kaylyn [facility] 1.2.840.11 [id number] Univers 17:58:00 19:18:00 Encounter MehulGarett Brinda 350.1.13.10 ity of [place] 4[place]2.7.2.[place] [id number] [facility] 081 Branch 2020-06-27 2020-06-29 Inpatient X MEHUL [facility] [id number] Univers 17:58:00 19:18:00 GARETT doe [facility] 2020-06-27 2020-06-27 Orders Doctor KIAH 1.2.840.114 [id number] Univers 00:00:00 00:00:00 Only Unassigned, YEHUDA 350.1.13.10 ity of [place] [facility] 4.2.7.2.686 [place] as [id number] [address] 2019-09-01 2019-09-01 Office [facility] 1.2.840.114 [id number] Univers 09:55:41 10:13:47 Visit Donna Morales 350.1.13.10 ity of [place].2.[place] [facility] [id number] [address] 2019-09-01 2019-09-01 Outpatient R JALYN [facility] [id number] Univers 10:00:00 10:00:00 DONNA doe [facility] 2019-09-01 2019-09-01 Orders Doctor KIAH 1.2.840.114 [id number] Univers 00:00:00 00:00:00 Only Unassigned, YEHUDA 350.1.13.10 ity of [place] [facility] 4.2.7.2.686 [place] [id number] [address] Results Test Description Test Time Test Comments Results Result Comments Source DIGOXIN 2022-02-11 21:08:20 Test Item Value Reference Range Interpretation Comme nts DIGOXIN (test code = 7850986592) 0.9 ng/mL 0.8-1.6 LUZ (test code = LUZ) Arrythmias: ?1.5 - 2.0 ng/mLToxic Range: ? Greater than or equal to 2.4 ng/mL Lab Interpretation (test code = 92878-8) Normal [facility] 20:53:15 Test Item Value Reference Range Interpretation Comments DIGOXIN (test code = 0.9 ng/mL 0.8-1.6 9288562816) LUZ (test code = LUZ) Arrythmias: ?1.5 - 2.0 ng/mLToxic Range: ? Greater than or equal to 2.4 ng/mL Lab Interpretation (test Normal code = 34733-8) [facility]2022-[facility]-20 18:19:07 Test Item Value Reference Interpretation Comments Range Procalcitonin (test 0.03 ng/mL See_Comment [Automa beatrice code = 7720504727) message] The system which generated this result [...] lung abscess/empyema. For further information please refer to:[email or web address] p Lab Interpretation Normal (test code = 22867-2) [facility]2022-02-11 16:43:47 Test Item Value Reference Range Interpretation Comments POCT GLU (test code = 9985876101) 302 mg/dL 70-110 H Lab Interpretation (test code = Abnormal 32345-5) [facility] [id number] 13:58:53 Test Item Value Reference Interpretation Comments Range TROPONIN I (test 0.019 ng/mL See_Comment [Automated code = 3800300126) message] The system which generated this result [...] biotin. Lab Interpretation Normal (test code = 43172-7) [facility] (AUT[facility]ATED)2022-02-11 13:18:28 Test Item Value Reference Range Interpretation Comments POCT GLU (test code = 6824976922) 123 mg/dL 70-110 H Lab Interpretation (test code = Abnormal 71680-6) [facility]2022-09-20 12:47:51 Test Item Value Reference Range Interpretation Comments MAGNESIUM (test code = 5966934345) 2.5 mg/dL 1.7-2.4 H Lab Interpretation (test code = Abnormal 67849-5) [facility] METABOLIC PANEL (NA, K, CL, CO2, GLUCOSE, BUN, CREATININE, CA)2022-02-11 12:47:51 Test Item Value Reference Range Interpretation Comments NA (test code = 136 mmol/L 135-145 4628957806) K (test code = 4.2 mmol/L 3.5-5 4256424273) CL (test code = 101 mmol/L 98-108 7865154536) CO2 TOTAL (test code = 27 mmol/L 23-31 2648818435) AGAP (test code = 2-16 0161579379) BUN (test code = 48 mg/dL 7-23 H 1998675123) GLUCOSE (test code = 119 mg/dL 70-110 H 6838218517) CREATININE (test code = 1.58 mg/dL 0.6-1.25 H 8711453910) CALCIUM (test code = 8.8 mg/dL 8.6-10.6 4994727694) eGFR (test code = mL/min/1.73m2 6147476170) LUZ (test code = LUZ) Association of [...] tests). Lab Interpretation Abnormal (test code = 53275-1) [facility] WITH [id number] 01:04:16 Test Item Value Reference Range Interpretation Comments WBC (test code = See_Comment H [Automated 6490-2) message] The sy stem which generated this [...] (test code = 53.3 fL 38.5-51.6 H 07107-9) RDW-CV (test code = 17.2 % 12.1-15.4 H 788-0) PLT (test code = See_Comment H [Automated 777-3) message] The sy stem which generated this result transmitted reference range : 150 - 328 10*3/ ?L. The reference r stephanie was not used to interpret this result as normal/abnormal . MPV (test code = 11.0 fL 9.8-13 95553-3) NRBC/100 WBC (test See_Comment [Automat ed code = 7047612142) message] The system which generated this result transmitted reference range : 0.0 - 10.0 /100 WBCs. The refer ence range was not u sed to interpret th is result as normal/abnormal . NRBC x10^3 (test code See_Comment [Auto mated = 5488477052) message] The s ystem which generated this result transmitted reference range : 10*3/?L. The reference range was not used to interpret this result as normal/abnormal . SEG % (test code = 50 % 33-76 19717-9) BAND % (test code = 1 % 0-1 84327-3) LYMPH % (test code = 17 % 14-54 85800-4) MONO % (test code = 8 % 0-4 H 35172-4) EOS % (test code = 23 % 0-3 H 05319-9) BASO % (test code = 1 % 0-1 48774-9) ANC (test code = 5.62 10*3/uL 1.99-6.95 753-4) Lab Interpretation Abnormal (test code = 37482-7) [id number] 00:47:16 Test Item Value Reference Interpretation Comments Range TROPONIN I (test 0.022 ng/mL See_Comment [Automated code = 5549805067) message] The system which generated this result [...] biotin. Lab Interpretation Normal (test code = 75751-2) [facility] Center[facility]AL [id number] 00:43:59 Test Item Value Reference Range Interpretation Comments NT-proBNP (test code 2520 pg/mL See_Comment H [Autom ated = 6818646547) message] The system which generated this result transmitted reference range : <=450. The reference range was not used to interpret this result as normal/abnormal . LUZ (test code = LUZ) Biotin has been reported to cause a negative bias, interpret results relative to patient's use of biotin. Lab Interpretation Abnormal (test code = 82669-4) [facility]OLIC PANEL (96595)2022-02-11 00:36:13 Test Item Value Reference Range Interpretation Comments NA (test code = 139 mmol/L 135-145 7899784871) K (test code = 5.0 mmol/L 3.5-5 5466569530) CL (test code = 96 mmol/L 98-108 L 1138967079) CO2 TOTAL (test code = 30 mmol/L 23-31 1566986021) AGAP (test code = 2-16 7739259918) BUN (test code = 50 mg/dL 7-23 H 9078785939) GLUCOSE (test code = 147 mg/dL 70-110 H 4962794990) CREATININE (test code = 1.71 mg/dL 0.6-1.25 H 2552565222) TOTAL BILI (test code = 0.7 mg/dL 0.1-1.2 0086486691) CALCIUM (test code = 9.3 mg/dL 8.6-10.6 6332484934) T PROTEIN (test code = 7.2 g/dL 6.3-8.2 6855265253) ALBUMIN (test code = 4.4 g/dL 3.5-5 4695923234) ALK PHOS (test code = 99 U/L 34-122 1386456107) ALTv (test code = 14 U/L 5-50 2-6) AST(SGOT) (test code = 14 U/L 13-40 5439466187) eGFR (test code = mL/min/1.73m2 4322106171) LUZ (test code = LUZ) Association of [...] tests). Lab Interpretation Abnormal (test code = 84394-1) [facility] CenterProth[facility]bin Time / [id number] 11:05:09 Test Item Value Reference Range Interpretation [...] tions. Lab Interpretation (test Abnormal code = 82947-5) [facility] [id number] 10:48:07 Test Item Value Reference Interpretation Comments Range TROPONIN I (test 0.027 ng/mL See_Comment [Automated code = 6902255830) message] The system which generated this result [...] biotin. Lab Interpretation Normal (test code = 74518-6) [facility]AL [id number] 10:44:31 Test Item Value Reference Range Interpretation Comments NT-proBNP (test code 2230 pg/mL See_Comment H [Autom ated = 5724107555) message] The system which generated this result transmitted reference range : <=450. The reference range was not used to interpret this result as normal/abnormal . LUZ (test code = LUZ) Biotin has been reported to cause a negative bias, interpret results relative to patient's use of biotin. Lab Interpretation Abnormal (test code = 14891-7) [facility]. METABOLIC PANEL (58906)2022-01-23 10:36:26 Test Item Value Reference Range Interpretation Comments NA (test code = 140 mmol/L 135-145 5257396104) K (test code = 4.6 mmol/L 3.5-5 0487130806) CL (test code = 104 mmol/L 98-108 7864511790) CO2 TOTAL (test code = 28 mmol/L 23-31 9108652304) AGAP (test code = 2-16 4158002927) BUN (test code = 42 mg/dL 7-23 H 3082766159) GLUCOSE (test code = 138 mg/dL 70-110 H 3638655108) CREATININE (test code = 1.21 mg/dL 0.6-1.25 4746218984) TOTAL BILI (test code = 0.6 mg/dL 0.1-1.3 6134758539) CALCIUM (test code = 9.1 mg/dL 8.6-10.6 1128728379) T PROTEIN (test code = 6.4 g/dL 6.3-8.2 4540608005) ALBUMIN (test code = 3.9 g/dL 3.5-5 9728624217) ALK PHOS (test code = 101 U/L 34-122 8859556302) ALTv (test code = 14 U/L 5-50 1742-6) AST(SGOT) (test code = 18 U/L 13-40 3250608215) eGFR (test code = mL/min/1.73m2 8870627469) LUZ (test code = LUZ) Association of [...] tests). Lab Interpretation Abnormal (test code = 86534-5) [facility] WITH [id number] 10:23:05 Test Item Value Reference Range Interpretation [...] (test code = 55.8 fL 38.5-51.6 H 09484-4) RDW-CV (test code = 17.8 % 12.1-15.4 H 788-0) PLT (test code = See_Comment [Automated 777-3) message] The sy stem which generated this result transmitted reference range : 150 - 328 10*3/ ?L. The reference r stephanie was not used to interpret this result as normal/abnormal . MPV (test code = 10.8 fL 9.8-13 18543-6) NRBC/100 WBC (test See_Comment [Automat ed code = 4244091440) message] The system which generated this result transmitted reference range : 0.0 - 10.0 /100 WBCs. The refer ence range was not u sed to interpret th is result as normal/abnormal . NRBC x10^3 (test code See_Comment [Auto mated = 5745148751) message] The s ystem which generated this result transmitted reference range : 10*3/?L. The reference range was not used to interpret this result as normal/abnormal . GRAN MAT (NEUT) % 39.5 % (test code = 770-8) IMM GRAN % (test code 0.30 % = 3001435370) LYMPH % (test code = 19.4 % 736-9) MONO % (test code = 11.3 % 5905-5) EOS % (test code = 28.8 % 713-8) BASO % (test code = 0.7 % 706-2) GRAN MAT x10^3(ANC) 2.68 10*3/uL 1.99-6.95 (test code = 1981996036) IMM GRAN x10^3 (test 0-0.06 code = 6044228173) LYMPH x10^3 (test code 1.32 10*3/uL 1.09-3.23 = 731-0) MONO x10^3 (test code 0.77 10*3/uL 0.36-1.02 = 742-7) EOS x10^3 (test code = 1.96 10*3/uL 0.06-0.53 H 711-2) BASO x10^3 (test code 0.05 10*3/uL 0.01-0.09 = 704-7) Lab Interpretation Abnormal (test code = 20672-1) [id number] 12:10:51 Test Item Value Reference Interpretation Comments Range TROPONIN I (test 0.019 ng/mL See_Comment [Automated code = 9020748381) message] The system which generated this result [...] biotin. Lab Interpretation Normal (test code = 11581-6) [id number] 12:07:30 Test Item Value Reference Range Interpretation Comments NT-proBNP (test code 2730 pg/mL See_Comment H [Autom ated = 9000605305) message] The system which generated this result transmitted reference range : <=450. The reference range was not used to interpret this result as normal/abnormal . LUZ (test code = LUZ) Biotin has been reported to cause a negative bias, interpret results relative to patient's use of biotin. Lab Interpretation Abnormal (test code = 71749-8) [facility] 12:00:10 Test Item Value Reference Range Interpretation Comments MAGNESIUM (test code = 9265860397) 1.9 mg/dL 1.7-2.4 Lab Interpretation (test code = Normal 07614-1) [facility] ([id number])2022-01-06 11:59:50 Test Item Value Reference Range Interpretation Comments NA (test code = 140 mmol/L 135-145 7074320532) K (test code = 4.9 mmol/L 3.5-5 9796239678) CL (test code = 105 mmol/L 98-108 2146705279) CO2 TOTAL (test code = 22 mmol/L 23-31 L 5415362306) AGAP (test code = 2-16 4180909577) BUN (test code = 29 mg/dL 7-23 H 1970466452) GLUCOSE (test code = 155 mg/dL 70-110 H 1799307291) CREATININE (test code = 1.20 mg/dL 0.6-1.25 9998246524) TOTAL BILI (test code = 0.9 mg/dL 0.1-1.3 6082904318) CALCIUM (test code = 9.1 mg/dL 8.6-10.6 3770887002) T PROTEIN (test code = 7.1 g/dL 6.3-8.2 9983047253) ALBUMIN (test code = 4.2 g/dL 3.5-5 8418351157) ALK PHOS (test code = 85 U/L 34-122 5626521041) ALTv (test code = 12 U/L 5-50 1742-6) AST(SGOT) (test code = 14 U/L 13-40 6837613921) eGFR (test code = mL/min/1.73m2 4882212716) LUZ (test code = LUZ) Association of [...] tests). Lab Interpretation Abnormal (test code = 05090-1) [facility] WITH [id number] 11:34:48 Test Item Value Reference Range Interpretation [...] (test code = 56.3 fL 38.5-51.6 H 29750-8) RDW-CV (test code = 17.7 % 12.1-15.4 H 788-0) PLT (test code = See_Comment [Automated 777-3) message] The sy stem which generated this result transmitted reference range : 150 - 328 10*3/ ?L. The reference r stephanie was not used to interpret this result as normal/abnormal . MPV (test code = 10.8 fL 9.8-13 06780-1) NRBC/100 WBC (test See_Comment [Automat ed code = 1404692633) message] The system which generated this result transmitted reference range : 0.0 - 10.0 /100 WBCs. The refer ence range was not u sed to interpret th is result as normal/abnormal . NRBC x10^3 (test code See_Comment [Auto mated = 3211574143) message] The s [employer] which generated this result transmitted reference range : 10*3/?L. The reference range was not used to interpret this result as normal/abnormal . GRAN MAT (NEUT) % 72.3 % (test code = 770-8) IMM GRAN % (test code 1.10 % = 3039424051) LYMPH % (test code = 10.1 % 736-9) MONO % (test code = 10.9 % 5905-5) EOS % (test code = 4.8 % 713-8) BASO % (test code = 0.8 % 706-2) GRAN MAT x10^3(ANC) 7.47 10*3/uL 1.99-6.95 H (test code = 2085906430) IMM GRAN x10^3 (test 0.11 10*3/uL 0-0.06 H code = 6636601007) LYMPH x10^3 (test code 1.04 10*3/uL 1.09-3.23 L = 731-0) MONO x10^3 (test code 1.13 10*3/uL 0.36-1.02 H = 742-7) EOS x10^3 (test code = 0.50 10*3/uL 0.06-0.53 711-2) BASO x10^3 (test code 0.08 10*3/uL 0.01-0.09 = 704-7) Lab Interpretation Abnormal (test code = 80693-7) [id number]30 Test Item Value Reference Interpretation Comments Range TROPONIN I (test 0.010 ng/mL See_Comment [Automated code = 5975980060) message] The system which generated this result [...] biotin. Lab Interpretation Normal (test code = 10191-0) [id number] 00:36:12 Test Item Value Reference Range Interpretation Comments NT-proBNP (test code 1390 pg/mL See_Comment H [Autom ated = 7733854395) message] The system which generated this result transmitted reference range : <=450. The reference range was not used to interpret this result as normal/abnormal . LUZ (test code = LUZ) Biotin has been reported to cause a negative bias, interpret results relative to patient's use of biotin. Lab Interpretation Abnormal (test code = 69946-4) [facility] ([id number])2021-12-18 00:28:47 Test Item Value Reference Range Interpretation Comments NA (test code = 140 mmol/L 135-145 6703128730) K (test code = 4.9 mmol/L 3.5-5 4979998492) CL (test code = 101 mmol/L 98-108 2660934079) CO2 TOTAL (test code = 23 mmol/L 23-31 1969170663) AGAP (test code = 2-16 4655609418) BUN (test code = 27 mg/dL 7-23 H 5880359318) GLUCOSE (test code = 114 mg/dL 70-110 H 0941081686) CREATININE (test code = 1.20 mg/dL 0.6-1.25 6568770749) TOTAL BILI (test code = 0.6 mg/dL 0.1-1.5 8821066424) CALCIUM (test code = 9.3 mg/dL 8.6-10.6 9056235587) T PROTEIN (test code = 7.2 g/dL 6.3-8.2 5444738925) ALBUMIN (test code = 4.3 g/dL 3.5-5 0075684818) ALK PHOS (test code = 85 U/L 34-122 7792832199) ALTv (test code = 14 U/L 5-50 1742-6) AST(SGOT) (test code = 15 U/L 13-40 8631724237) eGFR (test code = mL/min/1.73m2 3861295304) LUZ (test code = LUZ) Association of [...] tests). Lab Interpretation Abnormal (test code = 68541-4) [facility] WITH [id number] 00:21:10 Test Item Value Reference Range Interpretation Comments WBC (test code = See_Comment [Automated 1460-2) message] The sy stem which generated this result transmitted reference range : 4.20 - 10.70 10*3/?L. The reference range was not used to interpret this result as normal/abnormal . RBC (test code = See_Comment L [Automated 102-8) message] The sy stem which generated this [...] (test code = 59.7 fL 38.5-51.6 H 18593-1) RDW-CV (test code = 19.0 % 12.1-15.4 H 788-0) PLT (test code = See_Comment [Automated 777-3) message] The sy stem which generated this result transmitted reference range : 150 - 328 10*3/ ?L. The reference r stephanie was not used to interpret this result as normal/abnormal . MPV (test code = 10.5 fL 9.8-13 86406-8) NRBC/100 WBC (test See_Comment [Automat ed code = 6710116484) message] The system which generated this result transmitted reference range : 0.0 - 10.0 /100 WBCs. The refer ence range was not u sed to interpret th is result as normal/abnormal . NRBC x10^3 (test code See_Comment [Auto mated = 1998532315) message] The s ystem which generated this result transmitted reference range : 10*3/?L. The reference range was not used to interpret this result as normal/abnormal . GRAN MAT (NEUT) % 50.9 % (test code = 770-8) IMM GRAN % (test code 0.50 % = 4633478715) LYMPH % (test code = 21.8 % 736-9) MONO % (test code = 12.9 % 5905-5) EOS % (test code = 12.7 % 713-8) BASO % (test code = 1.2 % 706-2) GRAN MAT x10^3(ANC) 3.92 10*3/uL 1.99-6.95 (test code = 1201031034) IMM GRAN x10^3 (test 0.04 10*3/uL 0-0.06 code = 5205023401) LYMPH x10^3 (test code 1.68 10*3/uL 1.09-3.23 = 731-0) MONO x10^3 (test code 0.99 10*3/uL 0.36-1.02 = 742-7) EOS x10^3 (test code = 0.98 10*3/uL 0.06-0.53 H 711-2) BASO x10^3 (test code 0.09 10*3/uL 0.01-0.09 = 704-7) Lab Interpretation Abnormal (test code = 77574-2) [facility] GLUCOSE (AUTOMATED)2021-11-22 16:20:26 Test Item Value Reference Range Interpretation Comments POCT GLU (test code = 3896695054) 211 mg/dL 70-110 H Lab Interpretation (test code = Abnormal 00979-8) [facility] GLUCOSE (AUTOMATED)2021-11-22 12:57:11 Test Item Value Reference Range Interpretation Comments POCT GLU (test code = 8348314702) 237 mg/dL 70-110 H Lab Interpretation (test code = Abnormal 43984-5) [facility] GLUCOSE (AUTOMATED)2021-11-21 22:10:02 Test Item Value Reference Range Interpretation Comments POCT GLU (test code = 5827367546) 229 mg/dL 70-110 H Lab Interpretation (test code = Abnormal 03874-6) [facility] GLUCOSE (AUTOMATED)2021-11-21 17:12:43 Test Item Value Reference Range Interpretation Comments POCT GLU (test code = 2644789536) 208 mg/dL 70-110 H Lab Interpretation (test code = Abnormal 29381-6) [facility] WITH [id number] 14:22:33 Test Item Value Reference Range Interpretation [...] RDW-SD (test code = 51.1 fL 38.5-51.6 91386-2) RDW-CV (test code = 17.2 % 12.1-15.4 H 788-0) PLT (test code = See_Comment [Automated 777-3) message] The sy stem which generated this result transmitted reference range : 150 - 328 10*3/ ?L. The reference r stephanie was not used to interpret this result as normal/abnormal . MPV (test code = 10.7 fL 9.8-13.0 07172-6) NRBC/100 WBC (test See_Comment [Automat ed code = 5303213412) message] The system which generated this result transmitted reference range : 0.0 - 10.0 /100 WBCs. The refer ence range was not u sed to interpret th is result as normal/abnormal . NRBC x10^3 (test code <0.01 See_Comment [Auto mated = 0352461600) message] The s ystem which generated this result transmitted reference range : 10*3/?L. The reference range was not used to interpret this result as normal/abnormal . GRAN MAT (NEUT) % 60.2 % (test code = 770-8) IMM GRAN % (test code 0.80 % = 7834848630) LYMPH % (test code = 24.4 % 736-9) MONO % (test code = 14.3 % 5905-5) EOS % (test code = 0.3 % 713-8) BASO % (test code = 0.0 % 706-2) GRAN MAT x10^3(ANC) 2.15 10*3/uL 1.99-6.95 (test code = 8705640521) IMM GRAN x10^3 (test 0.03 10*3/uL 0.00-0.06 code = 9099972399) LYMPH x10^3 (test code 0.87 10*3/uL 1.09-3.23 [...] 2+ See_Comment A [Automat ed code = 65764-7) message] The system which generated this result transmitted reference range : (none). The reference range was not used to interpret this result as normal/abnormal . BANDS (test code = Increased A 6688205697) LG GRAN LYMPHS (test Rare Rare code = 5297293066) GIANT PLATELETS (test Present See_Comment A [Auto mated code = 5908-9) message] The system which generated this result transmitted reference range : (none). The reference range was not used to interpret this result as normal/abnormal . Lab Interpretation Abnormal (test code = 36048-5) [facility] 13:39:25 Test Item Value Reference Range Interpretation Comments POCT GLU (test code = 0508614556) 212 mg/dL 70-110 H Lab Interpretation (test code = Abnormal 02846-7) [facility] METABOLIC PANEL (NA, K, CL, CO2, GLUCOSE, BUN, CREATININE, CA)2021-11-21 11:11:53 Test Item Value Reference Range Interpretation Comments NA (test code = 136 mmol/L 135-145 8640401938) K (test code = 4.8 mmol/L 3.5-5.0 3813733541) CL (test code = 102 mmol/L 98-108 6840471062) CO2 TOTAL (test code = 26 mmol/L 23-31 3691927330) AGAP (test code = 2-16 4277834940) BUN (test code = 36 mg/dL 7-23 H 2764740157) GLUCOSE (test code = 204 mg/dL 70-110 H 4833960652) CREATININE (test code = 0.85 mg/dL 0.60-1.25 3301967878) CALCIUM (test code = 8.6 mg/dL 8.6-10.6 4935056156) eGFR (test code = mL/min/1.73m2 7910699788) LUZ (test code = LUZ) Association of [...] tests). Lab Interpretation Abnormal (test code = 79606-1) [facility]-21 06:56:21 Test Item Value Reference Range Interpretation Comments Height (test code = in 5175569031) Weight (test code = lbs 9872582262) Systolic BP (test code = mmHg 6009948889) Diastolic BP (test code = mmHg 3409333602) Heart Rate (test code = bpm 6262926838) BSA (test code = 2.08 m2 5557166982) Ao root annulus (test code 3.3 cm = 4198972512) Ao root diam (test code = 3.30 cm 0650663305) Aortic root (test code = 3.3 cm 7559675959) LVOT diameter (test code = 1.86 cm 1044775090) LVIDD (test code = 3.30 cm 8893041050) IVS (test code = 1.51 cm 4365680829) Interventricular Septum 1.51 cm Diastolic Thickness by 2D (test code = 1677126) LVPWD (test code = 1.53 cm 3377367992) PW (test code = 1.53 cm 0.6-1.8 4791986591) EF(Teich) (test code = 58.10 % 9806846365) LVIDS (test code = 2.33 cm 8775695926) FS (test code = 30 % 2906685711) EF - 2D (test code = 58.10 % 45536870) LA size (test code = 5.4 cm 6197313362) TR Peak Norberto (test code = 300.5 cm/s 9176214197) Triscuspid Valve mmHg Regurgitation Peak Gradient (test code = 5731093859) Pulmonic Regurgitant End 52.1 cm/s Max Velocity (test code = 9976413422) LAV(MOD-sp4) (test code = 144.00 mL 2943311798) MV stenosis pressure 1/2 75.1 ms time (test code = 6481264447) MV Peak E Norberto (test code = 160.8 cm/s 8099296140) E wave decelartion time 0.25 s (test code = 0839204039) MV Peak A Norberto (test code = 65.7 cm/s 5049278815) E/A ratio (test code = ratio 7132822066) MR max PG (test code = 67.10 mm[Hg] 8021935795) MR max norberto (test code = 409.60 cm/s 5011540060) Mr max norberto (test code = 409.6 m/s 9316685496) MV Prop V (test code = 80.30 cm/s 5810683418) MV E/e' septal (test code 11.8 cm/s = 2180754293) Tapse (test code = 0.67 cm 6288677719) LVOT stroke volume (test 56.70 cm3 code = 2869632464) LVOT peak norberto (test code = 98.5 cm/s 7317939397) LVOT mn grad (test code = mmHg 0656267007) AV LVOT peak gradient mmHg (test code = 6588830960) LVOT peak VTI (test code = 20.8 cm 5711751473) LV V1 mean (test code = 70.30 cm/s 6495561830) Aortic valve mean velocity 107.1 cm/s (test code = 5786416742) Ao peak norberto (test code = 148.3 cm/s 9402571864) Ao VTI (test code = 27.8 cm 3402089800) AV area by cont VTI (test 2.0 cm2 code = 3500906759) AV area peak norberto (test 1.8 cm2 code = 4956276727) Ao max PG (test code = 8.80 mm[Hg] 2603673926) AV peak gradient (test mmHg code = 4333562248) AV valve area (test code = 2.04 cm2 2193045473) AV mean gradient (test mmHg code = 5834650855) Radiology Study observation (narrative) (test code = 90116-8) LUZ (test code = LUZ) ?Left?Ventricle: Left ventricle size is normal. Moderately increased wall thickness. Normal systolic function with a visually estimated EF of 55 - 60%. ?Pulmonic?Valve: Pulmonic valve is normal in structure and function. ?Mitral?Valve: Mitral valve structure is normal. Moderately thickened leaflets. Moderately calcified leaflets. ?Tricuspid?Valve: Tricuspid valve structure is normal. [facility] GLUCOSE (AUTOMATED)2021-11-21 04:55:54 Test Item Value Reference Range Interpretation Comments POCT GLU (test code = 0380722737) 284 mg/dL 70-110 H Lab Interpretation (test code = Abnormal 02898-7) [facility] GLUCOSE (AUTOMATED)2021-11-21 03:03:48 Test Item Value Reference Range Interpretation Comments POCT GLU (test code = 3561437857) 344 mg/dL 70-110 H Lab Interpretation (test code = Abnormal 25716-8) [facility] GLUCOSE (AUTOMATED)2021-11-20 21:19:00 Test Item Value Reference Range Interpretation Comments POCT GLU (test code = 0605179385) 327 mg/dL 70-110 H Lab Interpretation (test code = Abnormal 78121-5) [facility] GLUCOSE (AUTOMATED)2021-11-20 16:12:09 Test Item Value Reference Range Interpretation Comments POCT GLU (test code = 4333298699) 266 mg/dL 70-110 H Lab Interpretation (test code = Abnormal 04064-5) [facility] WITH [id number] 14:17:38 Test Item Value Reference Range Interpretation [...] (test code = 52.3 fL 38.5-51.6 H 56112-0) RDW-CV (test code = 17.5 % 12.1-15.4 H 788-0) PLT (test code = See_Comment [Automated 777-3) message] The sy stem which generated this result transmitted reference range : 150 - 328 10*3/ ?L. The reference r stephanie was not used to interpret this result as normal/abnormal . MPV (test code = 10.2 fL 9.8-13.0 46873-7) NRBC/100 WBC (test See_Comment [Automat ed code = 0005848130) message] The system which generated this result transmitted reference range : 0.0 - 10.0 /100 WBCs. The refer ence range was not u sed to interpret th is result as normal/abnormal . NRBC x10^3 (test code <0.01 See_Comment [Auto mated = 5854286050) message] The s ystem which generated this result transmitted reference range : 10*3/?L. The reference range was not used to interpret this result as normal/abnormal . GRAN MAT (NEUT) % 62.0 % (test code = 770-8) IMM GRAN % (test code 1.90 % = 8415947556) LYMPH % (test code = 22.7 % 736-9) MONO % (test code = 13.1 % 5905-5) EOS % (test code = 0.0 % 713-8) BASO % (test code = 0.3 % 706-2) GRAN MAT x10^3(ANC) 1.99 10*3/uL 1.99-6.95 (test code = 7527025573) IMM GRAN x10^3 (test 0.06 10*3/uL 0.00-0.06 code = 0805349979) LYMPH x10^3 (test code 0.73 10*3/uL 1.09-3.23 [...] 2+ See_Comment A [Automat ed code = 36346-7) message] The system which generated this result transmitted reference range : (none). The reference range was not used to interpret this result as normal/abnormal . BANDS (test code = Increased A 9088409736) LG GRAN LYMPHS (test Rare Rare code = 4331155697) TOXIC CHANGES (test Present A code = 803-7) Lab Interpretation Abnormal (test code = 43013-6) [facility] [id number] 14:00:33 Test Item Value Reference Interpretation Comments Range TROPONIN I (test 0.022 ng/mL See_Comment [Automated code = 5311133084) message] The system which generated this result [...] biotin. Lab Interpretation Normal (test code = 00458-3) [facility] [id number] 13:57:36 Test Item Value Reference Range Interpretation Comments NT-proBNP (test code 3560 pg/mL See_Comment H [Autom ated = 5407960004) message] The system which generated this result transmitted reference range : <=450. The reference range was not used to interpret this result as normal/abnormal . LUZ (test code = LUZ) Biotin has been reported to cause a negative bias, interpret results relative to patient's use of biotin. Lab Interpretation Abnormal (test code = 42359-8) [facility]21-[facility]-20 12:56:09 Test Item Value Reference Range Interpretation Comments POCT GLU (test code = 1124327010) 258 mg/dL 70-110 H Lab Interpretation (test code = Abnormal 74624-5) [facility] METABOLIC PANEL (NA, K, CL, CO2, GLUCOSE, BUN, CREATININE, CA)2021-11-20 11:53:23 Test Item Value Reference Range Interpretation Comments NA (test code = 137 mmol/L 135-145 9067189653) K (test code = 4.4 mmol/L 3.5-5.0 3231638301) CL (test code = 100 mmol/L 98-108 3100747439) CO2 TOTAL (test code = 27 mmol/L 23-31 3208279067) AGAP (test code = 2-16 1234804856) BUN (test code = 35 mg/dL 7-23 H 6785219252) GLUCOSE (test code = 258 mg/dL 70-110 H 9562858162) CREATININE (test code = 1.01 mg/dL 0.60-1.25 6858629446) CALCIUM (test code = 8.7 mg/dL 8.6-10.6 8922145303) eGFR (test code = mL/min/1.73m2 5098893910) LUZ (test code = LUZ) Association of [...] tests). Lab Interpretation Abnormal (test code = 18352-5) [facility] 11:53:23 Test Item Value Reference Range Interpretation Comments MAGNESIUM (test code = 2059756851) 2.3 mg/dL 1.7-2.4 Lab Interpretation (test code = Normal 42381-8) [facility] GLUCOSE (AUTOMATED)2021-11-20 02:00:42 Test Item Value Reference Range Interpretation Comments POCT GLU (test code = 6865859260) 211 mg/dL 70-110 H Lab Interpretation (test code = Abnormal 16935-8) [facility] GLUCOSE (AUTOMATED)2021-11-19 21:24:48 Test Item Value Reference Range Interpretation Comments POCT GLU (test code = 9912529948) 108 mg/dL 70-110 Lab Interpretation (test code = Normal 60685-9) [facility] GLUCOSE (AUTOMATED)2021-11-19 17:25:06 Test Item Value Reference Range Interpretation Comments POCT GLU (test code = 7538132447) 78 mg/dL 70-110 Lab Interpretation (test code = Normal 93634-1) [facility] GLUCOSE (AUTOMATED)2021-11-19 16:10:23 Test Item Value Reference Range Interpretation Comments POCT GLU (test code = 5673985003) 115 mg/dL 70-110 H Lab Interpretation (test code = Abnormal 92399-3) [facility]-REACTIVE [id number] 15:26:09 Test Item Value Reference Range Interpretation Comments CRP (test code = 5265522331) 1.2 mg/dL <0.8 H Lab Interpretation (test code = Abnormal 40420-4) [facility] [id number] 14:10:50 Test Item Value Reference Range Interpretation [...] (test code = 52.5 fL 38.5-51.6 H 80829-5) RDW-CV (test code = 17.7 % 12.1-15.4 H 788-0) PLT (test code = See_Comment [Automated 777-3) message] The system which generated this result transmitted reference range : 150 - 328 10*3/?L. The reference range was not used to interpret this result as normal/abnormal . MPV (test code = 10.0 fL 9.8-13.0 19596-9) NRBC/100 WBC (test See_Comment [Automat ed code = 9917512361) message] The system which generated this result transmitted reference range : 0.0 - 10.0 /100 WBCs. The reference range was not used to interpret this result as normal/abnormal . NRBC x10^3 (test code <0.01 See_Comment [Auto mated = 8575871241) message] The system which generated this result transmitted reference range : 10*3/?L. The reference range was not used to interpret this result as normal/abnormal . GRAN MAT (NEUT) % 63.4 % (test code = 770-8) IMM GRAN % (test code 0.70 % = 9138516111) LYMPH % (test code = 12.6 % 736-9) MONO % (test code = 18.9 % 5905-5) EOS % (test code = 3.5 % 713-8) BASO % (test code = 0.9 % 706-2) GRAN MAT x10^3(ANC) 2.71 10*3/uL 1.99-6.95 (test code = 8684521362) IMM GRAN x10^3 (test 0.03 10*3/uL 0.00-0.06 code = 6076407308) LYMPH x10^3 (test 0.54 10*3/uL 1.09-3.23 L code = 731-0) MONO x10^3 (test code 0.81 10*3/uL 0.36-1.02 = 742-7) EOS x10^3 (test code 0.15 10*3/uL 0.06-0.53 = 711-2) BASO x10^3 (test code 0.04 10*3/uL 0.01-0.09 = 704-7) ELLIPTO/OVAL (test 2+ See_Comment A [Automat ed code = 10320-3) message] The system which generated this result transmitted reference range : (none). The reference range was not used to interpret this result as normal/abnormal . POLYCHROMASIA (test 2+ See_Comment [Automa beatrice code = 81609-3) message] The system which generated this result transmitted reference range : 2+. The referen ce range was not used to interpr et this result as normal/abnormal . BANDS (test code = MARKED INCREASED A [id number]) Lab Interpretation Abnormal (test code = 40068-2) [id number]:11 Test Item Value Reference Range Interpretation Comments URIC ACID (test code = 9299697051) 11.0 mg/dL 3.6-8.0 H Lab Interpretation (test code = Abnormal 89454-8) [facility] CenterCREATINE [id number] 10:44:51 Test Item Value Reference Range Interpretation Comments CK (test code = 4179371852) 33 U/L 33-194 Lab Interpretation (test code = Normal 05468-7) [facility] [id number] 10:17:49 Test Item Value Reference Interpretation Comments Range TROPONIN I (test 0.039 ng/mL See_Comment H [Automated code = 2841659595) message] The system which generated this result [...] biotin. Lab Interpretation Abnormal (test code = 91398-5) [facility]MINAL [id number] 10:14:27 Test Item Value Reference Range Interpretation Comments NT-proBNP (test code 3970 pg/mL See_Comment H [Autom ated = 4809232175) message] The system which generated this result transmitted reference range : <=450. The reference range was not used to interpret this result as normal/abnormal . LUZ (test code = LUZ) Biotin has been reported to cause a negative bias, interpret results relative to patient's use of biotin. Lab Interpretation Abnormal (test code = 32770-1) [facility] CenterCOMP. METABOLIC PANEL (75409)2021-11-19 10:06:07 Test Item Value Reference Range Interpretation Comments NA (test code = 136 mmol/L 135-145 0583906362) K (test code = 4.2 mmol/L 3.5-5.0 1230761522) CL (test code = 99 mmol/L 98-108 9937613376) CO2 TOTAL (test code = 25 mmol/L 23-31 5859395822) AGAP (test code = 2-16 0922474636) BUN (test code = 32 mg/dL 7-23 H 1820145952) GLUCOSE (test code = 75 mg/dL 70-110 1181268867) CREATININE (test code = 1.29 mg/dL 0.60-1.25 H 3893175542) TOTAL BILI (test code = 0.5 mg/dL 0.1-1.4 2773383779) CALCIUM (test code = 8.5 mg/dL 8.6-10.6 L 4530172415) T PROTEIN (test code = 6.7 g/dL 6.3-8.2 0011984730) ALBUMIN (test code = 3.8 g/dL 3.5-5.0 4112670648) ALK PHOS (test code = 75 U/L 34-122 6899054306) ALTv (test code = 9 U/L 5-50 1742-6) AST(SGOT) (test code = 17 U/L 13-40 6611959469) eGFR (test code = mL/min/1.73m2 8948913505) LUZ (test code = LUZ) Association of [...] tests). Lab Interpretation Abnormal (test code = 53525-1) [facility] CenterMAGNESIUM2022-06-28 10:06:07 Test Item Value Reference Range Interpretation Comments MAGNESIUM (test code = 4747915030) 2.1 mg/dL 1.7-2.4 Lab Interpretation (test code = Normal 81103-0) [facility] CenterPHOSPHORUS2022-06-28 10:05:47 Test Item Value Reference Range Interpretation Comments PHOSPHORUS (test code = 2177659879) 4.3 mg/dL 2.5-5.0 Lab Interpretation (test code = Normal 74980-2) [facility] CenterLACTATE [id number] 04:25:54 Test Item Value Reference Range Interpretation Comments LDH (test code = 4999488954) 321 U/L 300-600 Lab Interpretation (test code = Normal 72514-0) [facility] CenterTROPONIN [id number] 01:07:32 Test Item Value Reference Interpretation Comments Range TROPONIN I (test 0.019 ng/mL See_Comment [Automated code = 2974834348) message] The system which generated this result [...] biotin. Lab Interpretation Normal (test code = 32784-8) [facility] CenterPROCALCITONIN2022-06-27 21:13:39 Test Item Value Reference Range Interpretation Comments Procalcitonin (test 0.05 ng/mL <0.07 code = 1614611489) LUZ (test code = LUZ) INTERPRETATION OF [...] lung abscess/empyema. For further information please refer to:[email or web address] Lab Interpretation Normal (test code = 46539-3) [facility] CenterVITAMIN B12, [id number] 20:59:39 Test Item Value Reference Range Interpretation Comments VIT B12 (test code = 224 pg/mL 240-930 L 0961450243) LUZ (test code = LUZ) Biotin has been reported to cause a positive bias, interpret results relative to patient's use of biotin. Lab Interpretation (test Abnormal code = 28992-4) [facility] CenterVITAMIN D, [id number] 20:58:17 Test Item Value Reference Range Interpretation Comments VIT D 25OH (test code = 20 ng/mL 25-80 L 86201-9) LUZ (test code = LUZ) Deficiency: <20 ng/mLInsufficiency: 20-24 ng/mLOptimal: 25-80 ng/mL Lab Interpretation (test Abnormal code = 29519-0) [facility] CenterTROPONIN [id number] 18:33:52 Test Item Value Reference Interpretation Comments Range TROPONIN I (test 0.024 ng/mL See_Comment [Automated code = 0572710166) message] The system which generated this result [...] biotin. Lab Interpretation Normal (test code = 78051-8) [facility] CenterTROPONIN [id number] 16:46:44 Test Item Value Reference Interpretation Comments Range TROPONIN I (test 0.027 ng/mL See_Comment [Automated code = 4956366148) message] The system which generated this result [...] biotin. Lab Interpretation Normal (test code = 86794-2) [facility] CenterCREATINE [id number] 16:34:19 Test Item Value Reference Range Interpretation Comments CK (test code = 0210558879) 21 U/L 33-194 L Lab Interpretation (test code = Abnormal 60823-2) [facility] CenterD-[id number] 15:18:30 Test Item Value Reference Interpretation Comments Range D-DIMER (test code = See_Comment H [Autom ated 6193307128) message] The system which generated this result [...] diagnosis. Lab Interpretation Abnormal (test code = 32272-6) [facility] CenterProthrombin Time / [id number] 15:14:12 Test Item Value Reference Range Interpretation Comments PROTIME PATIENT (test See_Comment H [Auto mated message] code = 5964-2) The system [employer] generated this result transmitted ref erence range: 12.0 - 1 4.7 Seconds. The reference range was not used to int erpret this result as normal/abnormal . INR (test code = 6301-6) Nor mal INR <1.1; Warfarin Therap eutic range 2.0 to 3. 0 or 2.5 to 3.5, dep ending upon the indica tions. Lab Interpretation (test Abnormal code = 75395-9) [facility] CenterTHYROID STIMULATING [id number] 15:07:08 Test Item Value Reference Range Interpretation Comments TSH (test code = See_Comment [Automated message] 4968822764) The system [employer] generated this result transmitted ref erence range: 0.45 - 4 .70 mIU/L. The refe rence range was not u sed to interpret this result as normal/abnor mal. Lab Interpretation (test Normal code = 25392-4) [facility] CenterLIPID PANEL (20899)(TOTAL CHOLESTEROL, TRIGLYCERIDES, HDL)2021-11-18 14:47:08 Test Item Value Reference Range Interpretation Comments CHOL (test code = 87 mg/dL 120-200 L 5413437776) HDL (test code = 25 mg/dL >40 L 5583914525) HDLC RATIO (test code = See_Comment [Au tomated message] 4459780808) The system [employer] generated this result transmit beatrice reference range : <=5.0. The refe rence range was not u sed to interpret th is result as normal/abnormal . TRIG (test code = 116 mg/dL 30-170 2650236322) LDL CHOL (test code = 39 mg/dL See_Comment [Auto mated message] 94255-0) The system [employer] generated this result transmit beatrice reference range : <=160. The refe rence range was not u sed to interpret th is result as normal/abnormal . VLDL (test code = 23 mg/dL 5-60 5767708267) Lab Interpretation (test Abnormal code = 06758-3) [facility] CenterIRON [id number] 14:40:28 Test Item Value Reference Range Interpretation Comments IRON (test code = 5466909955) 44 ug/dL 50-160 L TIBC (test code = 3093492350) 420 ug/dL 250-410 H % FE SAT (test code = 5645995827) 10 % 20-50 L Lab Interpretation (test code = Abnormal 09855-6) [facility] CenterDIGOXIN2022-06-27 14:34:06 Test Item Value Reference Range Interpretation Comments DIGOXIN (test code = 0.9 ng/mL 0.8-1.6 0311053503) LUZ (test code = LUZ) Arrythmias: ?1.5 - 2.0 ng/mLToxic Range: ? Greater than or equal to 2.4 ng/mL Lab Interpretation (test Normal code = 26346-3) [facility] CenterURIC [id number] 14:33:51 Test Item Value Reference Range Interpretation Comments URIC ACID (test code = 3461523861) 10.0 mg/dL 3.6-8.0 H Lab Interpretation (test code = Abnormal 98716-9) [facility] CenterPHOSPHORUS2022-06-27 14:33:51 Test Item Value Reference Range Interpretation Comments PHOSPHORUS (test code = 0011060943) 4.0 mg/dL 2.5-5.0 Lab Interpretation (test code = Normal 73405-2) [facility] CenterGLYCOSYLATED HEMOGLOBIN (A1C)2021-11-18 14:13:22 Test Item Value Reference Range Interpretation Comments HGB A1C (test code = 7.6 % 4.0-5.7 H 4548-4) LUZ (test code = LUZ) Reference RangesNormal: <5.7%Prediabetes: 5.7 - 6.4%Diabetes: > 6.5% Lab Interpretation (test Abnormal code = 65671-2) [facility] CenterSEDIMENTATION [id number] 12:52:47 Test Item Value Reference Range Interpretation Comments ESR (test code = See_Comment H [Automated message] 9502747803) The system [employer] generated this result transmitted ref erence range: 0 - 10 m m/HR. The reference r stephanie was not used to interpret this result as normal/abnor mal. Lab Interpretation (test Abnormal code = 29129-9) [facility] CenterTROPONIN [id number] 11:02:13 Test Item Value Reference Interpretation Comments Range TROPONIN I (test 0.021 ng/mL See_Comment [Automated code = 7823328123) message] The system which generated this result [...] biotin. Lab Interpretation Normal (test code = 45890-5) [facility] CenterN-TERMINAL [id number] 10:58:54 Test Item Value Reference Range Interpretation Comments NT-proBNP (test code 2210 pg/mL See_Comment H [Autom ated = 2961468067) message] The system which generated this result transmitted reference range : <=450. The reference range was not used to interpret this result as normal/abnormal . LUZ (test code = LUZ) Biotin has been reported to cause a negative bias, interpret results relative to patient's use of biotin. Lab Interpretation Abnormal (test code = 56758-1) [facility] CenterMAGNESIUM2022-06-27 10:50:36 Test Item Value Reference Range Interpretation Comments MAGNESIUM (test code = 7304771491) 1.8 mg/dL 1.7-2.4 Lab Interpretation (test code = Normal 44186-3) [facility]. METABOLIC PANEL (91480)2021-11-18 10:50:16 Test Item Value Reference Range Interpretation Comments NA (test code = 136 mmol/L 135-145 7906916552) K (test code = 4.8 mmol/L 3.5-5.0 0565393607) CL (test code = 98 mmol/L 98-108 4218309698) CO2 TOTAL (test code = 24 mmol/L 23-31 5249731201) AGAP (test code = 2-16 7537494157) BUN (test code = 33 mg/dL 7-23 H 6044771148) GLUCOSE (test code = 119 mg/dL 70-110 H 0931591612) CREATININE (test code = 1.35 mg/dL 0.60-1.25 H 5069912442) TOTAL BILI (test code = 0.6 mg/dL 0.1-1.8 7623569258) CALCIUM (test code = 9.6 mg/dL 8.6-10.6 2325030775) T PROTEIN (test code = 7.3 g/dL 6.3-8.2 7362184711) ALBUMIN (test code = 4.4 g/dL 3.5-5.0 5983770125) ALK PHOS (test code = 85 U/L 34-122 1445274685) ALTv (test code = 11 U/L 5-50 1742-6) AST(SGOT) (test code = 15 U/L 13-40 3679869305) eGFR (test code = mL/min/1.73m2 8495726779) LUZ (test code = LUZ) Association of [...] tests). Lab Interpretation Abnormal (test code = 73327-5) [facility] CenterLIPASE2022-06-27 10:50:16 Test Item Value Reference Range Interpretation Comments LIPASE (test code = 8702950324) 26 U/L 0-220 Lab Interpretation (test code = Normal 52039-0) [facility] CenterLactic Acid Whole [id number] 10:44:04 Test Item Value Reference Range Interpretation Comments LACTIC ACID (test code = 1.98 mmol/L 0.50-2.20 7539984769) Lab Interpretation (test code = Normal 94444-4) [facility] CenterCB WITH [id number] 10:38:32 Test Item Value Reference Range Interpretation [...] (test code = 52.0 fL 38.5-51.6 H 58689-7) RDW-CV (test code = 17.3 % 12.1-15.4 H 788-0) PLT (test code = See_Comment [Automated 777-3) message] The sy stem which generated this result transmitted reference range : 150 - 328 10*3/ ?L. The reference r stephanie was not used to interpret this result as normal/abnormal . MPV (test code = 9.6 fL 9.8-13.0 L 24589-3) NRBC/100 WBC (test See_Comment [Automat ed code = 3138906111) message] The system which generated this result transmitted reference range : 0.0 - 10.0 /100 WBCs. The refer ence range was not u sed to interpret th is result as normal/abnormal . NRBC x10^3 (test code <0.01 See_Comment [Auto mated = 9586539047) message] The s ystem which generated this result transmitted reference range : 10*3/?L. The reference range was not used to interpret this result as normal/abnormal . GRAN MAT (NEUT) % 55.3 % (test code = 770-8) IMM GRAN % (test code 0.50 % = 0921622069) LYMPH % (test code = 11.1 % 736-9) MONO % (test code = 15.9 % 5905-5) EOS % (test code = 16.2 % 713-8) BASO % (test code = 1.0 % 706-2) GRAN MAT x10^3(ANC) 3.35 10*3/uL 1.99-6.95 (test code = 1820468299) IMM GRAN x10^3 (test 0.03 10*3/uL 0.00-0.06 code = 8177406840) LYMPH x10^3 (test code 0.67 10*3/uL 1.09-3.23 L = 731-0) MONO x10^3 (test code 0.96 10*3/uL 0.36-1.02 = 742-7) EOS x10^3 (test code = 0.98 10*3/uL 0.06-0.53 H 711-2) BASO x10^3 (test code 0.06 10*3/uL 0.01-0.09 = 704-7) Lab Interpretation Abnormal (test code = 44395-4) [facility] CenterDIGOXIN2022-04-20 11:24:52 Test Item Value Reference Range Interpretation Comments DIGOXIN (test code = 0.8 ng/mL 0.8-1.6 Slight hemolysis 3018434118) LUZ (test code = LUZ) Arrythmias: ?1.5 - 2.0 ng/mLToxic Range: ? Greater than or equal to 2.4 ng/mL Lab Interpretation Normal (test code = 28869-0) [facility] CenterTROPONIN [id number] 11:14:07 Test Item Value Reference Interpretation Comments Range TROPONIN I (test 0.022 ng/mL See_Comment [Automated code = 5439175775) message] The system which generated this result [...] biotin. Lab Interpretation Normal (test code = 72411-1) [facility] CenterComplete Metabolic Nimty7603-36-16 11:02:47 Test Item Value Reference Range Interpretation Comments NA (test code = 137 mmol/L 135-145 4084294384) K (test code = 5.1 mmol/L 3.5-5.0 H 0619803672) CL (test code = 101 mmol/L 98-108 0822351499) CO2 TOTAL (test code = 19 mmol/L 23-31 L 1671122050) AGAP (test code = 2-16 H 7556601620) BUN (test code = 31 mg/dL 7-23 H 2255480216) GLUCOSE (test code = 276 mg/dL 70-110 H 1657658764) CREATININE (test code = 1.11 mg/dL 0.60-1.25 8503447869) TOTAL BILI (test code = 1.2 mg/dL 0.1-1.1 H 9892052900) CALCIUM (test code = 9.3 mg/dL 8.6-10.6 5373742340) T PROTEIN (test code = 7.8 g/dL 6.3-8.2 9715076875) ALBUMIN (test code = 4.5 g/dL 3.5-5.0 6277557261) ALK PHOS (test code = 97 U/L 34-122 5874187489) ALTv (test code = 14 U/L 5-50 2-6) AST(SGOT) (test code = 32 U/L 13-40 3734691807) eGFR (test code = mL/min/1.73m2 4303427429) LUZ (test code = LUZ) Association of [...] tests). Lab Interpretation Abnormal (test code = 56691-7) [facility] CenterLipase, [id number] 11:02:26 Test Item Value Reference Range Interpretation Comments LIPASE (test code = 9160122009) 41 U/L 0-220 Lab Interpretation (test code = Normal 16479-3) [facility] CenterCBC with Haatpukpwzou1406-09-73 10:38:45 Test Item Value Reference Range Interpretation [...] RDW-SD (test code = 46.9 fL 38.5-51.6 68194-9) RDW-CV (test code = 15.8 % 12.1-15.4 H 788-0) PLT (test code = See_Comment H [Automated 777-3) message] The sy stem which generated this result transmitted reference range : 150 - 328 10*3/ ?L. The reference r stephanie was not used to interpret this result as normal/abnormal . MPV (test code = 10.6 fL 9.8-13.0 67203-0) NRBC/100 WBC (test See_Comment [Automat ed code = 8311177919) message] The system which generated this result transmitted reference range : 0.0 - 10.0 /100 WBCs. The refer ence range was not u sed to interpret th is result as normal/abnormal . NRBC x10^3 (test code <0.01 See_Comment [Auto mated = 3371202456) message] The s ystem which generated this result transmitted reference range : 10*3/?L. The reference range was not used to interpret this result as normal/abnormal . GRAN MAT (NEUT) % 75.6 % (test code = 770-8) IMM GRAN % (test code 0.60 % = 6250130101) LYMPH % (test code = 13.2 % 736-9) MONO % (test code = 9.2 % 5905-5) EOS % (test code = 0.9 % 713-8) BASO % (test code = 0.5 % 706-2) GRAN MAT x10^3(ANC) 6.17 10*3/uL 1.99-6.95 (test code = 8074950515) IMM GRAN x10^3 (test 0.05 10*3/uL 0.00-0.06 code = 2521303851) LYMPH x10^3 (test code 1.08 10*3/uL 1.09-3.23 L = 731-0) MONO x10^3 (test code 0.75 10*3/uL 0.36-1.02 = 742-7) EOS x10^3 (test code = 0.07 10*3/uL 0.06-0.53 711-2) BASO x10^3 (test code 0.04 10*3/uL 0.01-0.09 = 704-7) Lab Interpretation Abnormal (test code = 92462-6) [facility] CenterPOIA GLUCOSE (AUTOMATED)2021-09-11 10:08:24 Test Item Value Reference Range Interpretation Comments POCT GLU (test code = 8738568945) 273 mg/dL 70-110 H Lab Interpretation (test code = Abnormal 04644-8) [facility] CenterTROPONIN [id number] 22:12:38 Test Item Value Reference Interpretation Comments Range TROPONIN I (test 0.012 ng/mL See_Comment [Automated code = 1115144798) message] The system which generated this result [...] biotin. Lab Interpretation Normal (test code = 70278-0) [facility] CenterN-TERMINAL [id number] 22:09:20 Test Item Value Reference Range Interpretation Comments NT-proBNP (test code 2740 pg/mL See_Comment H [Autom ated = 3037387748) message] The system which generated this result transmitted reference range : <=450. The reference range was not used to interpret this result as normal/abnormal . LUZ (test code = LUZ) Biotin has been reported to cause a negative bias, interpret results relative to patient's use of biotin. Lab Interpretation Abnormal (test code = 01262-6) [facility] CenterDIGOXIN2022-03-03 22:03:39 Test Item Value Reference Range Interpretation Comments DIGOXIN (test code = 0.8 ng/mL 0.8-1.6 2110841786) LUZ (test code = LUZ) Arrythmias: ?1.5 - 2.0 ng/mLToxic Range: ? Greater than or equal to 2.4 ng/mL Lab Interpretation (test Normal code = 13156-3) [facility] CenterCOMP. METABOLIC PANEL (06988)2021-07-25 22:01:19 Test Item Value Reference Range Interpretation Comments NA (test code = 135 mmol/L 135-145 8111668727) K (test code = 4.5 mmol/L 3.5-5.0 5566475802) CL (test code = 97 mmol/L 98-108 L 9803245935) CO2 TOTAL (test code = 26 mmol/L 23-31 3500674130) AGAP (test code = 2-16 1718570185) BUN (test code = 24 mg/dL 7-23 H 8795524305) GLUCOSE (test code = 180 mg/dL 70-110 H 7584457319) CREATININE (test code = 1.12 mg/dL 0.60-1.25 4252495864) TOTAL BILI (test code = 0.9 mg/dL 0.1-1.5 6899886520) CALCIUM (test code = 9.0 mg/dL 8.6-10.6 7137349915) T PROTEIN (test code = 7.6 g/dL 6.3-8.2 2455482845) ALBUMIN (test code = 4.3 g/dL 3.5-5.0 9700300863) ALK PHOS (test code = 111 U/L 34-122 4660258981) ALTv (test code = 13 U/L 5-50 1742-6) AST(SGOT) (test code = 16 U/L 13-40 2148159278) eGFR (test code = mL/min/1.73m2 4412121712) LUZ (test code = LUZ) Association of [...] tests). Lab Interpretation Abnormal (test code = 37067-7) [facility] CenterMAGNESIUM2022-03-03 22:01:19 Test Item Value Reference Range Interpretation Comments MAGNESIUM (test code = 7353928578) 2.0 mg/dL 1.7-2.4 Lab Interpretation (test code = Normal 13398-2) [facility] CenterLIPASE2022-03-03 22:00:53 Test Item Value Reference Range Interpretation Comments LIPASE (test code = 6208054284) 38 U/L 0-220 Lab Interpretation (test code = Normal 14598-7) [facility] WITH [id number] 21:49:30 Test Item Value Reference Range Interpretation Comments WBC (test code = See_Comment [Automated 7890-2) message] The sy stem which generated this result transmitted reference range : 4.20 - 10.70 10*3/?L. The reference range was not used to interpret this result as normal/abnormal . RBC (test code = See_Comment L [Automated 909-8) message] The sy stem which generated this [...] RDW-SD (test code = 49.0 fL 38.5-51.6 43603-9) RDW-CV (test code = 15.9 % 12.1-15.4 H 788-0) PLT (test code = See_Comment H [Automated 777-3) message] The sy stem which generated this result transmitted reference range : 150 - 328 10*3/ ?L. The reference r stephanie was not used to interpret this result as normal/abnormal . MPV (test code = 10.1 fL 9.8-13.0 51797-1) NRBC/100 WBC (test See_Comment [Automat ed code = 4134847986) message] The system which generated this result transmitted reference range : 0.0 - 10.0 /100 WBCs. The refer ence range was not u sed to interpret th is result as normal/abnormal . NRBC x10^3 (test code <0.01 See_Comment [Auto mated = 9481419263) message] The s ystem which generated this result transmitted reference range : 10*3/?L. The reference range was not used to interpret this result as normal/abnormal . GRAN MAT (NEUT) % 75.3 % (test code = 770-8) IMM GRAN % (test code 0.50 % = 2071906015) LYMPH % (test code = 14.0 % 736-9) MONO % (test code = 8.2 % 5905-5) EOS % (test code = 1.2 % 713-8) BASO % (test code = 0.8 % 706-2) GRAN MAT x10^3(ANC) 5.49 10*3/uL 1.99-6.95 (test code = 7867167814) IMM GRAN x10^3 (test 0.04 10*3/uL 0.00-0.06 code = 5849167741) LYMPH x10^3 (test code 1.02 10*3/uL 1.09-3.23 L = 731-0) MONO x10^3 (test code 0.60 10*3/uL 0.36-1.02 = 742-7) EOS x10^3 (test code = 0.09 10*3/uL 0.06-0.53 711-2) BASO x10^3 (test code 0.06 10*3/uL 0.01-0.09 = 704-7) Lab Interpretation Abnormal (test code = 31928-3) [facility] CenterPOCT GLUCOSE (AUTOMATED)2021-07-25 21:34:24 Test Item Value Reference Range Interpretation Comments POCT GLU (test code = 5409722728) 177 mg/dL 70-110 H Lab Interpretation (test code = Abnormal 63551-7) [facility] CenterTROPONIN [id number] 02:26:02 Test Item Value Reference Interpretation Comments Range TROPONIN I (test 0.014 ng/mL See_Comment [Automated code = 7876221672) message] The system which generated this result [...] biotin. Lab Interpretation Normal (test code = 77432-3) [facility]. METABOLIC PANEL (26601)2021-07-13 02:14:42 Test Item Value Reference Range Interpretation Comments NA (test code = 136 mmol/L 135-145 6358323937) K (test code = 4.9 mmol/L 3.5-5.0 0724139016) CL (test code = 102 mmol/L 98-108 0893926953) CO2 TOTAL (test code = 25 mmol/L 23-31 9669855579) AGAP (test code = 2-16 1387787405) BUN (test code = 23 mg/dL 7-23 1759555334) GLUCOSE (test code = 209 mg/dL 70-110 H 2373178271) CREATININE (test code = 0.95 mg/dL 0.60-1.25 0806127372) TOTAL BILI (test code = 1.3 mg/dL 0.1-1.1 H 3647535864) CALCIUM (test code = 8.9 mg/dL 8.6-10.6 0409188888) T PROTEIN (test code = 7.9 g/dL 6.3-8.2 6482886627) ALBUMIN (test code = 4.5 g/dL 3.5-5.0 7665392668) ALK PHOS (test code = 115 U/L 34-122 2095218846) ALTv (test code = 13 U/L 5-50 1742-6) AST(SGOT) (test code = 17 U/L 13-40 8747705056) eGFR (test code = mL/min/1.73m2 2736871315) LUZ (test code = LUZ) Association of [...] tests). Lab Interpretation Abnormal (test code = 93565-1) [facility] CenterLIPASE20[facility] 02:14:01 Test Item Value Reference Range Interpretation Comments LIPASE (test code = 3726758324) 32 U/L 0-220 Lab Interpretation (test code = Normal 33909-8) [facility] CenterCB WITH [id number] 02:10:20 Test Item Value Reference Range Interpretation [...] RDW-SD (test code = 50.7 fL 38.5-51.6 87099-8) RDW-CV (test code = 16.4 % 12.1-15.4 H 788-0) PLT (test code = See_Comment H [Automated 777-3) message] The sy stem which generated this result transmitted reference range : 150 - 328 10*3/ ?L. The reference r stephanie was not used to interpret this result as normal/abnormal . MPV (test code = 10.6 fL 9.8-13.0 76941-5) NRBC/100 WBC (test See_Comment [Automat ed code = 9746728657) message] The system which generated this result transmitted reference range : 0.0 - 10.0 /100 WBCs. The refer ence range was not u sed to interpret th is result as normal/abnormal . NRBC x10^3 (test code <0.01 See_Comment [Auto mated = 5156612892) message] The s ystem which generated this result transmitted reference range : 10*3/?L. The reference range was not used to interpret this result as normal/abnormal . GRAN MAT (NEUT) % 77.0 % (test code = 770-8) IMM GRAN % (test code 0.80 % = 9572040094) LYMPH % (test code = 10.6 % 736-9) MONO % (test code = 9.7 % 5905-5) EOS % (test code = 1.2 % 713-8) BASO % (test code = 0.7 % 706-2) GRAN MAT x10^3(ANC) 5.86 10*3/uL 1.99-6.95 (test code = 1310151611) IMM GRAN x10^3 (test 0.06 10*3/uL 0.00-0.06 code = 0555467213) LYMPH x10^3 (test code 0.81 10*3/uL 1.09-3.23 L = 731-0) MONO x10^3 (test code 0.74 10*3/uL 0.36-1.02 = 742-7) EOS x10^3 (test code = 0.09 10*3/uL 0.06-0.53 711-2) BASO x10^3 (test code 0.05 10*3/uL 0.01-0.09 = 704-7) Lab Interpretation Abnormal (test code = 95606-3) [facility] 21:45:11 Test Item Value Reference Range Interpretation Comments POCT GLU (test code = 5288705739) 220 mg/dL 70-110 H Lab Interpretation (test code = Abnormal 23145-0) [facility] [id number] 18:34:03 Test Item Value Reference Interpretation Comments Range TROPONIN I (test 0.016 ng/mL See_Comment [Automated code = 7476598398) message] The system which generated this result [...] biotin. Lab Interpretation Normal (test code = 78055-2) [facility] 16:33:16 Test Item Value Reference Range Interpretation Comments POCT GLU (test code = 7169884449) 169 mg/dL 70-110 H Lab Interpretation (test code = Abnormal 52649-5) [facility] CenterTHYROID STIMULATING [id number] 14:20:21 Test Item Value Reference Range Interpretation Comments TSH (test code = See_Comment [Automated message] 5589475103) The system [employer] generated this result transmitted ref erence range: 0.45 - 4 .70 mIU/L. The refe rence range was not u sed to interpret this result as normal/abnor mal. Lab Interpretation (test Normal code = 93712-1) [facility] [id number] 14:01:59 Test Item Value Reference Interpretation Comments Range TROPONIN I (test 0.023 ng/mL See_Comment [Automated code = 3990007498) message] The system which generated this result [...] biotin. Lab Interpretation Normal (test code = 51620-2) [facility] [id number] 13:58:56 Test Item Value Reference Range Interpretation Comments NT-proBNP (test code 1100 pg/mL See_Comment H [Autom ated = 9584179301) message] The system which generated this result transmitted reference range : <=450. The reference range was not used to interpret this result as normal/abnormal . LUZ (test code = LUZ) Biotin has been reported to cause a negative bias, interpret results relative to patient's use of biotin. Lab Interpretation Abnormal (test code = 71613-5) [facility] CenterGlycosylated Hemoglobin (A1C)2021-02-26 13:27:52 Test Item Value Reference Range Interpretation Comments HGB A1C (test code = 8.1 % 4.0-5.7 H 4548-4) LUZ (test code = LUZ) Reference RangesNormal: <5.7%Prediabetes: 5.7 - 6.4%Diabetes: > 6.5% Lab Interpretation (test Abnormal code = 91482-9) [facility] GLUCOSE (AUTOMATED)2021-02-26 13:15:49 Test Item Value Reference Range Interpretation Comments POCT GLU (test code = 9299761550) 209 mg/dL 70-110 H Lab Interpretation (test code = Abnormal 02292-6) [facility] GLUCOSE (AUTOMATED)2021-02-26 13:15:49 Test Item Value Reference Range Interpretation Comments POCT GLU (test code = 6384221104) 111 mg/dL 70-110 H Lab Interpretation (test code = Abnormal 68270-5) [facility] CenterMagnesium [id number] 11:27:09 Test Item Value Reference Range Interpretation Comments MAGNESIUM (test code = 0935747375) 1.7 mg/dL 1.7-2.4 Lab Interpretation (test code = Normal 41245-3) [facility] CenterBAS[facility]ABOLIC PANEL (NA, K, CL, CO2, GLUCOSE, BUN, CREATININE, CA)2021-02-26 11:26:44 Test Item Value Reference Range Interpretation Comments NA (test code = 137 mmol/L 135-145 9216168567) K (test code = 5.3 mmol/L 3.5-5.0 H 0822795568) CL (test code = 101 mmol/L 98-108 1245200855) CO2 TOTAL (test code = 25 mmol/L 23-31 5784124079) AGAP (test code = 2-16 3731252154) BUN (test code = 37 mg/dL 7-23 H 5659771834) GLUCOSE (test code = 153 mg/dL 70-110 H 2126137159) CREATININE (test code = 1.26 mg/dL 0.60-1.25 H 1893349391) CALCIUM (test code = 10.3 mg/dL 8.6-10.6 1134264368) eGFR (test code = mL/min/1.73m2 0472166623) LUZ (test code = LUZ) Association of [...] tests). Lab Interpretation Abnormal (test code = 46514-4) [facility] with [id number] 10:10:58 Test Item Value Reference Range Interpretation [...] RDW-SD (test code = 50.6 fL 38.5-51.6 30461-2) RDW-CV (test code = 16.1 % 12.1-15.4 H 788-0) PLT (test code = See_Comment [Automated 777-3) message] The sy stem which generated this result transmitted reference range : 150 - 328 10*3/ ?L. The reference r stephanie was not used to interpret this result as normal/abnormal . MPV (test code = 10.2 fL 9.8-13.0 60678-4) NRBC/100 WBC (test See_Comment [Automat ed code = 6464298854) message] The system which generated this result transmitted reference range : 0.0 - 10.0 /100 WBCs. The refer ence range was not u sed to interpret th is result as normal/abnormal . NRBC x10^3 (test code <0.01 See_Comment [Auto mated = 6325484046) message] The s ystem which generated this result transmitted reference range : 10*3/?L. The reference range was not used to interpret this result as normal/abnormal . GRAN MAT (NEUT) % 58.5 % (test code = 770-8) IMM GRAN % (test code 0.40 % = 5459456812) LYMPH % (test code = 22.8 % 736-9) MONO % (test code = 13.4 % 5905-5) EOS % (test code = 4.2 % 713-8) BASO % (test code = 0.7 % 706-2) GRAN MAT x10^3(ANC) 4.20 10*3/uL 1.99-6.95 (test code = 7092240630) IMM GRAN x10^3 (test 0.03 10*3/uL 0.00-0.06 code = 0019003911) LYMPH x10^3 (test code 1.64 10*3/uL 1.09-3.23 = 731-0) MONO x10^3 (test code 0.96 10*3/uL 0.36-1.02 = 742-7) EOS x10^3 (test code = 0.30 10*3/uL 0.06-0.53 711-2) BASO x10^3 (test code 0.05 10*3/uL 0.01-0.09 = 704-7) Lab Interpretation Abnormal (test code = 69915-5) [facility] METABOLIC PANEL (NA, K, CL, CO2, GLUCOSE, BUN, CREATININE, CA)2021-02-26 06:10:25 Test Item Value Reference Range Interpretation Comments NA (test code = 135 mmol/L 135-145 4936994427) K (test code = 6.2 mmol/L 3.5-5.0 HH 0005602520) CL (test code = 102 mmol/L 98-108 2260827092) CO2 TOTAL (test code = 22 mmol/L 23-31 L 6001208549) AGAP (test code = 2-16 7387303935) BUN (test code = 39 mg/dL 7-23 H 3017749948) GLUCOSE (test code = 157 mg/dL 70-110 H 3521000797) CREATININE (test code = 1.17 mg/dL 0.60-1.25 4061975970) CALCIUM (test code = 10.1 mg/dL 8.6-10.6 8510413509) eGFR (test code = mL/min/1.73m2 9259412813) LUZ (test code = LUZ) Association of [...] tests). Lab Interpretation Abnormal (test code = 03828-4) [facility]2021-[facility]-26 00:45:44 Test Item Value Reference Range Interpretation Comments POCT GLU (test code = 2404230192) 183 mg/dL 70-110 H Lab Interpretation (test code = Abnormal 17342-9) [facility] CenterTROPONIN [id number] 19:47:30 Test Item Value Reference Interpretation Comments Range TROPONIN I (test 0.011 ng/mL See_Comment [Automated code = 9181002941) message] The system which generated this result [...] biotin. Lab Interpretation Normal (test code = 97046-0) [facility] CenterACTIVATED PARTIAL THRMPLAS [id number] 19:44:49 Test Item Value Reference Range Interpretation Comments APTT Patient (test See_Comment [Automat ed code = 3173-2) message] The system which generated this result transmitted reference range : 23 - 38 Seconds . The reference range was not used to interpr et this result as normal/abnormal . LUZ (test code = LUZ) [facility] mean normal value for aPTT is 30 seconds. Lab Interpretation Normal (test code = 56030-8) [facility] CenterN-TERMINAL [id number] 19:44:08 Test Item Value Reference Range Interpretation Comments NT-proBNP (test code 1030 pg/mL See_Comment H [Autom ated = 0385058860) message] The system which generated this result transmitted reference range : <=450. The reference range was not used to interpret this result as normal/abnormal . LUZ (test code = LUZ) Biotin has been reported to cause a negative bias, interpret results relative to patient's use of biotin. Lab Interpretation Abnormal (test code = 65751-9) [facility] CenterPROTHROMBIN TIME / [id number] 19:41:44 Test Item Value Reference Range Interpretation [...] tions. Lab Interpretation (test Abnormal code = 61121-5) [facility] CenterDIGOXIN2021-10-04 19:38:22 Test Item Value Reference Range Interpretation Comments DIGOXIN (test code = 1.1 ng/mL 0.8-1.6 3405797585) LUZ (test code = LUZ) Arrythmias: ?1.5 - 2.0 ng/mLToxic Range: ? Greater than or equal to 2.4 ng/mL Lab Interpretation (test Normal code = 62102-3) [facility] CenterMAGNESIUM2021-10-04 19:36:04 Test Item Value Reference Range Interpretation Comments MAGNESIUM (test code = 4596656173) 1.7 mg/dL 1.7-2.4 Lab Interpretation (test code = Normal 31113-2) [facility] CenterCOM. METABOLIC PANEL (64487)2021-02-25 19:36:03 Test Item Value Reference Range Interpretation Comments NA (test code = 136 mmol/L 135-145 8969112716) K (test code = 6.0 mmol/L 3.5-5.0 H 9707110436) CL (test code = 104 mmol/L 98-108 0065868062) CO2 TOTAL (test code = 22 mmol/L 23-31 L 7219586097) AGAP (test code = 2-16 5254736357) BUN (test code = 35 mg/dL 7-23 H 4331102799) GLUCOSE (test code = 183 mg/dL 70-110 H 4640934857) CREATININE (test code = 1.15 mg/dL 0.60-1.25 5766766291) TOTAL BILI (test code = 0.6 mg/dL 0.1-1.5 2292052523) CALCIUM (test code = 10.0 mg/dL 8.6-10.6 8414259790) T PROTEIN (test code = 7.6 g/dL 6.3-8.2 9311914085) ALBUMIN (test code = 4.4 g/dL 3.5-5.0 0106755490) ALK PHOS (test code = 99 U/L 34-122 6808933813) ALTv (test code = 16 U/L 5-50 1742-6) AST(SGOT) (test code = 19 U/L 13-40 2006775665) eGFR (test code = mL/min/1.73m2 8054884815) LUZ (test code = LUZ) Association of [...] tests). Lab Interpretation Abnormal (test code = 31785-8) [facility] WITH [id number] 19:23:22 Test Item Value Reference Range Interpretation Comments WBC (test code = See_Comment [Automated 7590-2) message] The sy stem which generated this result transmitted reference range : 4.20 - 10.70 10*3/?L. The reference range was not used to interpret this result as normal/abnormal . RBC (test code = See_Comment L [Automated 9-8) message] The sy stem which generated this [...] RDW-SD (test code = 49.9 fL 38.5-51.6 90777-6) RDW-CV (test code = 15.9 % 12.1-15.4 H 788-0) PLT (test code = See_Comment [Automated 777-3) message] The sy stem which generated this result transmitted reference range : 150 - 328 10*3/ ?L. The reference r stephanie was not used to interpret this result as normal/abnormal . MPV (test code = 10.0 fL 9.8-13.0 53782-3) NRBC/100 WBC (test See_Comment [Automat ed code = 0162887780) message] The system which generated this result transmitted reference range : 0.0 - 10.0 /100 WBCs. The refer ence range was not u sed to interpret th is result as normal/abnormal . NRBC x10^3 (test code <0.01 See_Comment [Auto mated = 1629111051) message] The s ystem which generated this result transmitted reference range : 10*3/?L. The reference range was not used to interpret this result as normal/abnormal . GRAN MAT (NEUT) % 63.7 % (test code = 770-8) IMM GRAN % (test code 0.50 % = 1652525914) LYMPH % (test code = 21.1 % 736-9) MONO % (test code = 11.2 % 5905-5) EOS % (test code = 2.8 % 713-8) BASO % (test code = 0.7 % 706-2) GRAN MAT x10^3(ANC) 5.20 10*3/uL 1.99-6.95 (test code = 2009190452) IMM GRAN x10^3 (test 0.04 10*3/uL 0.00-0.06 code = 0424460292) LYMPH x10^3 (test code 1.73 10*3/uL 1.09-3.23 = 731-0) MONO x10^3 (test code 0.92 10*3/uL 0.36-1.02 = 742-7) EOS x10^3 (test code = 0.23 10*3/uL 0.06-0.53 711-2) BASO x10^3 (test code 0.06 10*3/uL 0.01-0.09 = 704-7) Lab Interpretation Abnormal (test code = 47991-7) [facility] CenterCT [facility] WO [id number] 20:42:13 No acute intracranial hemorrhage or mass effect. No cervical fracture or subluxation. Degenerative changes. Partially visualized layering right-sided pleural effusion. 1.6 cm leftthyroid lobe nodule, correlate with thyroid ultrasound on a non emergentbasis if not already performed. Preliminary Report Dictated by Resident: Mani Kim ?MD. Tk, have reviewed this study and agree withtheabove [...] reviewed this study and agree with theabove report.[facility]CT [facility] CONTRAST 2020-07-29 20:42:13 No [...] reviewed this study and agree with theabove report.[facility] CenterCyt Pleural [id number] 00:48:00 Test Item Value Reference Range Interpretation Comments Case Report (test code Non-Gynecologic = 8345726777) Cytology ?Case: [id number] ?Authorizing Provider: ?Garett Armas MD ? Collected: ? 06/28/2020 1351 ?Ordering Location: ? ? [facility] Medicine Surgery Unit ?Received: ?06/28/2020 1416 ?Specimen: ? ?PLEURAL, RIGHT, EFFUSION ? Final Diagnosis (test m5tnyEYaUFWwx7taBDNdnJ code = 2794658038) FuZzMzNcZnRuYmpcdWMx KBvpozBwCFutl1ZmZ9DmUs AwMFxhbnNpXGRlZmxhbmcx VBOwUHD4tiTrHIJpFIdbBV ZtXIoyXm1utWIwzBinUzRt JUGvj5ynlhIMlvnftNu8g1 aaWWUwKqT4yZNuYHynY0kh icOelQAgSUGlCAx7qH56DR TsxK1pcALgRKidqqEiAkS6 ZZmiTROzJaX8RIQqvCCxDH PeT2hoQGCuVChbLYWmKPnd zBAsXBJ5TGGyFYX8IIorts PkeqM5QCztqGFfAdD7KAe5 a6sxoVecPDItIXQ1b0auNH oegzUvLO1sre0ujVc4d6ex czEgRGVmYXVsdCBQYXJhZ3 PqqYljLw2tcBh6rXpuUmxu VHQ6Dni1TS2fek56fgq7vC rnRVUbvzugPfM0TExrAUTl lqknNKd3OIidGLDqiCCzVH WdrKRnW6EhZHnnQE4weww0 HeDmKI5wnslnZCmuWYSvOQ I5SqUhDTEnv5PbspkgUgBb rx4uzk82NXG3m0ZdfJfsNS M3HVJ7CqWgYt3gtYSgIXVa HF9qJeVumLYmKSOryo26nL otQOxzqzVapL0bMbVgUEXb qWAmYKPlFO3luOYzKOBrzL 5ucmxjXHBnYnJkcmhlYWRc lDbibbCmZd9rgIjzDQA2JS lpR4lbtW2mHyD5GKqiJ0zf yT4cZBd8WJvpxVE6CPMiuV 8xAF2ihwrta9xsJKP3FTyh LVKaplL4ydUyFGEkoIKwT7 EppH69KvFtuQCiT2KisL3a CMijNVQhwaf7PvOtWu9woV ZcfVL0KRbdHyuxCIhfVIVj bmNvbnRccGduZGVjXHBsYW luXHBsYWluXGYwXGZzMjRc aNzmzDnrwE8yBpVbAmOpVG sjHM7qMOVqT3oplOXdMQGn XORaU9wtDtHanC3ycFqcKP xmczIwXHBhclxwbGFpblxm MVxmczIwXGxhbmcxMDMzXG foS4ihDjRxQGQycCzbHGsu l3JuZDPsHLGvYpfeggYkOI OoPF4zXZBjMEdqEHOwEZYv MjBcbGFuZzEwMzNcaGljaF qqLNzfYlJfUZGwCIkgD4ys YoHmD7AtNDMeD4ygbNLsaN G8W7obysLaLKOkKHyVHSHN LCBSSUdIVDsgVEhPUkFDRU 5URVNJUyBGTFVJRFxwbGFp blxmMVxmczIwXGxhbmcxMD ApIPwdT7dlIaMlMPYrlAmd DRohe6ZpHHTmCZFwIxuxpy IwXGIgOlxwYXIgICAgICAt ISGUHx2WKJNqVU0POYBPDV YGXH6PXSDUGV4KYV3MEGUU PO6TATSQE9kiHXLoIPOkJZ IxIU6YCU6ICZfAQwXYNWZV RUxMUyBJREVOVElGSUVEIC dJHDLzX41HOOXWBIobpBnq gP1gTeBiLrIyFRviGZ0zLZ IoB5bnqKLaUESpVSVbJ3kz EcNnrH4vkQmpHGhiazKrVO NizzbwMSLdsFhlaV1hHxJa UjFiXiljMR4rLWWgS7kphQ DuBYYzWBRkX8xlXvNbmQ2s aFxmMVxjZjJcZnMyMiBGYX HenHFcXHXiUXmpZV8XSgHh YIFcOX1wEFAcOBOxMPfsKs BBTVxwbGFpblxmMVxmczIw ACcgwyfqBOCxEIbaP7zmPu CdIEJzhTicAClca8DdTCRv VFUeYvAqdDEhSZGivl48FX S6KtYmw4U8XCAvZcYsELXy XZ3gbEwnDJOkUK7qLTGfM5 ddqI7vcov7JvZxDBZaTeL6 ODSdscN3Xeu1MDOfXXqrk4 xyp7ZgW1LybYOebTi6s5ex WDKaPoF2rYEyAFfnM4djdb TmhTYoNWNfWZg7pLwrZuUj LILas8scmbZnDyRjIVDrMD GwANJjpFihevp6cR03CLUg zS6niHPmXOlykkXoSuE4TU kbPBRnDfF9GRQsrXWlEOLs U8gqGRUdIEafGJRvDHgzoL JdDMZ5aOvie3N8eFYnlAIu rYfqDbJbRxPvIBOVr9ZkDY u5gMskK4JgWNLaVyQ8nPLy YJGbQCezRJDpSPCcqzH1nX 63HMelugL0mCUgx8Khg84m a559uI3wjJFzJCK7TQGjMC NlnXXrSMSpWPX7BBWlsTSw A2lwOJNgSB9unhhvJYftEH tyDDPceTA1RXRjsUXdX8Qz URNiGGdfBNPpjap4HrAoOy 3aqEQdmSyyMHnpz0pcy1qo cKVxSul4ETRhExHdEghiCR wvs0Pql9gtSKOvds6iWQH7 iQRjtEdwc6Q9aNKdXKFrkO LggfUlRJWqTmN2KZtmAM4l il95EFEoCBC2zj2gpTJinM bhrrNivPDeHQtuF0PaIZOf i229IHWiI6NfBJEbd8Z5ox VuBqNjPCBryRS8faM1QMYj SKh0iYMwgnD0slNzlXYfX1 egxM3uGNApYC4wwxsxl7hb QYszSXxmKFNikEU3xnU9DS KuzVKnH6QvmP0fOHTuPXmy TSOusmx8XaTpZy7ceRUsqZ cyMFxzYmtwYWdlXHBnbmNv bnRccGduZGVjXHBsYWluXH BsYWluXGYwXGZzMjRccWxc yXhhaN4gZaMmJcFqTUhzIA 1dYJEiK6mmnYYnJSOaAJAt I1vyQmTjlZ6exNouACojAc JcZnMyMFxwYXIgSSBoYXZl CUTadbZmnuPmcIwhomW4eP F0SXGeIUleCIFkYSFzkNCs hp5zxGmlIMEoYK6uYQUqnu SiIMvqkPtlZBdoFKB1SFJk bWVudHMgbWFkZSBieSByZX BtHHKtwTHfQOCgjHzhl2Vv u3VcnWO3gA0jx7fpu6MsOM HzcKE0GI47fwW1bT1lOECq OF2gXYYwJV7yqOBuoEOoGZ Dlt92ghIyemgEjNKSdoaOx XHBsYWluXGYyXGZzMjhcbG FuZzEwMzNcaGljaFxmMlxk JjBrVNRzVNpvJ9fbLlZzRv NnLUhfCEJ8bT== Final Diagnosis Comment u8nphKKwEEXvfRXbPlSrZY (test code = JlFJXrf9gkGJHwjHNpDwEq 2649699545) MzNcZnRuYmpcdWMxXGRlZm Tbe6dyz921dWMxf8peXTHl QdS2jKVtVAZtzKVcI793VB QiISqjg6obs5SjMMZezLWo m2A7COYUsbfxmJd5qJwwO9 2xu2U7FhjpV1fxYUQxGRXp G2TbVS4tXOFrLyy6IJB0RU S0PTQwBLKiQ2OxCU1tVUTu rLKpBDh4d6lewJkcPIUxDJ X8h3pwKWwdzdMoVB4oql7a mTr0r6rgkdZdQLNpVEDndN QXBRPtI0DavErfVs9goKz3 cGeeEremBBK4Idz1WS2idi 28ebx5tOohQZSdkcmrRdB9 SWsqFYKlqsnuFIj7BYfsHE GchRFeHRQaxGWvK2CzCJfg JN4pgqf5VzYcON7lffarAL ciCNZjITV0YxPxXAVgt6Fw aipiIiDyrm0vtx54JDH5y3 JedOknZDV5NGH3WhUoGk0g fVDnTYRzDX3rSyTqyXQsZD Szen01vPmaEYaymxHooN2e KaAkVMHnePGwPNZfLD0ndF OfPONxsN0zupsuLJYmAfIn vhxhKSCbyCugtqAiAi9ncV gwVGO5WJuxY7qrlD2aPvR1 XXxaB2koxF5hGIp3NTkepA G3TWZnzX3xIK0werxjm6vm BRJ3JErcJUDoviS2hhSyEE KobAKfI2TmwO38WuYdhCWt R6ZcvM8lDFczGCAwqxo7Ye BcSl7oyTSqdIN3BFjjSzus YWdlXHBnbmNvbnRccGduZG VjXHBsYWluXHBsYWluXGYw IFYpXgUcaScchBnshU8xWo NxCrWqDFpjFC2xMDFkH9xs hIOcMAQcZWPuA9edDtJshI 7asLplNHbipwGhBGQ7lA7e tJvyEMA2IH1fqzX5mD8tOF Gsn7cyDTPuIVR4tXZaBY8c r225uCNjnFIcNJMicQhlVH FdiP3fyQ1jhUHkxpficBop gDnaS6m7KVNkDV6yUA2gyZ lnbmFudCBjZWxscyBhcmUg jNTtvfAlMntpNR0fkCVzqJ == Clinical Information Clinical Hx: loculated (test code = right pleural effusion 1797175124) with lung nodules. could be infectoius but also could be malignancy Gross Description (test b4rkbSVkCYYzhTOqKgAtQX code = 2939734188) OvLJDum5dyGRHzdQZeZdJn MzNcZnRuYmpcdWMxXGRlZm Ckz3egv143nTStt9tuWBUh HrT9aYVeLYTnhNCvK251k5 gaz3gdkxZfjXZ6FWToFAA6 EZjvmaQbzxL7MMiemSLpRt H2NWezveSdRWyuoqBdwnIz Cxz1YNCkF391IEB6qZzph3 eyWHQ9SDDkJLOiGjLqLv7u eMTlV445AGIuIHPXNBBejV a1GQDafcHqhxMofZLKz426 H244u8rcFNSxtjHhbBlYgu xln8qdP992PPOlbRChekDa TdEgZMAvkYSfxVI2GTLvKB 3tikueXGO4UBrfJOSmtnMj YXYvjJTlW8Q9PeNmjQHuV6 DsLVmzLVIeshr2XtGwGx2f eIWfeRD7VOfzz5rxx0gxgU XrQqb7XUKdTjTlWirfXTum b3Vyd8uwOQKklk8sFVI6nF PouScyo0M1bODeNTRbvJPa ejSjAJHoMkU8SFigRV0iny 47XPWkLCQ9da0dyYSgwVau srZpqWJyHMioA6GxYDOsl3 99OXGzT3OtXTBbt9A6xnNn XoKzJXJpoRG8ogM4LKKkNO e9nWPafoW2npJceTGuT5lg iW2zMEneIF8sszezr9ctZZ L2BVpuSAXirGJ5mgamNBpw RCVfFyT5tuSciFWbUAVxmE leEGuws071VIG5NcAlZCYw r8AeZ8AmjHtqS82dxXnyV3 4hHDWghYvyiQ2xbSeitS3o ZjBcZnMyNFxxbFxwbGFpbl xmMFxmczIwXGxhbmcxMDMz PNhmR1nqRsFjHVCskHaqDE etw6EcZWNtQZIcNiMnXNSv OVQGUFSKPjFdNXPJK8fSXa ELGV8AZALWEoSAN2bPBCZI VUlEXHBhciBSZWNlaXZlZC GrtePfuFJubqF2XWHmF0Ua e7MjMS7vPFPhBsx6sBIfEG BhciBQcmVwYXJlZCAyIHNs aBExoqBnU5k8j8LldW0ioB WppBOvOAPol13iNyLrPEGv pXHqh4nvb5tyHV3ePAPuXL ZlAK6mL88pAT38IKB1EQzv ZWQpXHBhcn0= Embedded Images (test code = 0979348815) [facility] GLUCOSE (AUTOMATED)2020-06-29 22:21:00 Test Item Value Reference Range Interpretation Comments POCT GLU (test code = 3179011585) 301 mg/dL 70-110 H Lab Interpretation (test code = Abnormal 31851-7) [id number] 18:22:00 Test Item Value Reference Range Interpretation Comments URINE CULTURE (test No aerobic growth (< code = 630-4) 1000 CFU/mL) [facility] GLUCOSE (AUTOMATED)2020-06-29 17:45:00 Test Item Value Reference Range Interpretation Comments POCT GLU (test code = 0458067525) 303 mg/dL 70-110 H Lab Interpretation (test code = Abnormal 17009-9) [id number] 14:20:00 Test Item Value Reference Range Interpretation Comments TROPONIN I (test 0.025 ng/mL See_Comment [Automated code = 4734766577) message] The system which generated this result [...] ? Lab Interpretation Normal (test code = 61269-2) [facility] [id number] 14:17:00 Test Item Value Reference Range Interpretation Comments NT-proBNP (test code 1220 pg/mL See_Comment H [Autom ated = 6095336148) message] The system which generated this result transmitted reference range : <=450. The reference range was not used to interpret this result as normal/abnormal . LUZ (test code = LUZ) Biotin has been reported to cause a negative bias, interpret results relative to patient's use of biotin. Lab Interpretation Abnormal (test code = 51881-4) [facility]57660[facility]2020-06-29 14:08:00 Test Item Value Reference Range Interpretation Comments NA (test code = 135 mmol/L 135-145 8554525367) K (test code = 3.7 mmol/L 3.5-5 4382721249) CL (test code = 93 mmol/L 98-108 L 3235747009) CO2 TOTAL (test code = 31 mmol/L 23-31 2327025321) AGAP (test code = 2-16 6542415520) BUN (test code = 33 mg/dL 7-23 H 3925622431) GLUCOSE (test code = 281 mg/dL 70-110 H 2268727823) CREATININE (test code = 1.46 mg/dL 0.6-1.25 H 7546477713) TOTAL BILI (test code = 1.0 mg/dL 0.1-1.1 7850876743) CALCIUM (test code = 9.1 mg/dL 8.6-10.6 3783067549) T PROTEIN (test code = 7.0 g/dL 6.3-8.2 8425801905) ALBUMIN (test code = 3.9 g/dL 3.5-5 7824192612) ALK PHOS (test code = 65 U/L 34-122 9034294945) ALTv (test code = 9 U/L 5-50 1742-6) AST(SGOT) (test code = 17 U/L 13-40 8880615659) eGFR Calculation mL/min/1.73m2 (Non-) (test code = 6708841762) eGFR Calculation mL/min/1.73m2 () (test code = 6208492995) LUZ (test code = LUZ) Association of [...] tests). Lab Interpretation Abnormal (test code = 29719-9) [facility] 14:[facility]:00 Test Item Value Reference Range Interpretation Comments MAGNESIUM (test code = 4843343919) 1.7 mg/dL 1.7-2.4 Lab Interpretation (test code = Normal 21897-2) [facility] 14:08:00 Test Item Value Reference Range Interpretation Comments PHOSPHORUS (test code = 3814453500) 3.8 mg/dL 2.5-5 Lab Interpretation (test code = Normal 55190-8) [facility] [id number] 14:08:00 Test Item Value Reference Range Interpretation Comments URIC ACID (test code = 1691638854) 12.1 mg/dL 3.6-8 H Lab Interpretation (test code = Abnormal 49598-5) [facility] [id number] 12:42:00 Test Item Value Reference Range Interpretation Comments WBC (test code = See_Comment [Automated 6690-2) message] The sy stem which generated this result transmitted reference range : 4.20 - 10.70 10*3/?L. The reference range was not used to interpret this result as normal/abnormal . RBC (test code = See_Comment L [Automated 999-8) message] The sy stem which generated this [...] RDW-SD (test code = 50.2 fL 38.5-51.6 03909-5) RDW-CV (test code = 16.1 % 12.1-15.4 H 788-0) PLT (test code = See_Comment [Automated 777-3) message] The sy stem which generated this result transmitted reference range : 150 - 328 10*3/ ?L. The reference r stephanie was not used to interpret this result as normal/abnormal . MPV (test code = 11.2 fL 9.8-13 89521-2) NRBC/100 WBC (test See_Comment [Automat ed code = 8149937763) message] The system which generated this result transmitted reference range : 0.0 - 10.0 /100 WBCs. The refer ence range was not u sed to interpret th is result as normal/abnormal . NRBC x10^3 (test code <0.01 See_Comment [Auto mated = 4134458080) message] The s ystem which generated this result transmitted reference range : 10*3/?L. The reference range was not used to interpret this result as normal/abnormal . GRAN MAT (NEUT) % 66.0 % (test code = 770-8) IMM GRAN % (test code 0.50 % = 8540922579) LYMPH % (test code = 17.2 % 736-9) MONO % (test code = 13.4 % 5905-5) EOS % (test code = 2.1 % 713-8) BASO % (test code = 0.8 % 706-2) GRAN MAT x10^3(ANC) 5.22 10*3/uL 1.99-6.95 (test code = 7729685331) IMM GRAN x10^3 (test 0.04 10*3/uL 0-0.06 code = 7178555043) LYMPH x10^3 (test code 1.36 10*3/uL 1.09-3.23 = 731-0) MONO x10^3 (test code 1.06 10*3/uL 0.36-1.02 H = 742-7) EOS x10^3 (test code = 0.17 10*3/uL 0.06-0.53 711-2) BASO x10^3 (test code 0.06 10*3/uL 0.01-0.09 = 704-7) Lab Interpretation Abnormal (test code = 00379-0) [facility] GLUCOSE (AUTOMATED)2020-06-29 11:00:00 Test Item Value Reference Range Interpretation Comments POCT GLU (test code = 7563815770) 328 mg/dL 70-110 H Lab Interpretation (test code = Abnormal 83367-5) [facility] GLUCOSE (AUTOMATED)2020-06-29 11:00:00 Test Item Value Reference Range Interpretation Comments POCT GLU (test code = 2146528136) 212 mg/dL 70-110 H Lab Interpretation (test code = Abnormal 14453-7) [facility] [id number] 06:49:00 Test Item Value Reference Range Interpretation Comments TROPONIN I (test 0.021 ng/mL See_Comment [Automated code = 6710345372) message] The system which generated this result [...] ? Lab Interpretation Normal (test code = 39261-6) [facility] CenterLAIAATE [id number] 06:37:00 Test Item Value Reference Range Interpretation Comments LDH (test code = 6674099607) 302 U/L 300-600 Lab Interpretation (test code = Normal 24567-6) [facility] CenterPOIA GLUCOSE (AUTOMATED)2020-06-29 03:31:00 Test Item Value Reference Range Interpretation Comments POCT GLU (test code = 2440327281) 339 mg/dL 70-110 H Lab Interpretation (test code = Abnormal 17458-7) [facility] FLUID MANUAL [id number] 00:21:00 Test Item Value Reference Range Interpretation Comments BF SEGS (test code = 0 % 9628757820) BF LYMPHS (test code 62 % = 5400375583) BF REACTIVE LYMPHS % 2 % (test code = 0555183515) MACROPHAGE (test code 32 % = 6608244306) MESOS (test code = 3 % 0437406097) BF EOS (test code = 1 % 1645988106) #CELS CNTD (test code = 0116304859) LUZ (test code = LUZ) Reactive mesos and erythrophages seen, Pigment-laden macrophages observed. Iron stain required to confirm presence of hemosiderin. [facility] FLUID DIRECT [id number] 00:19:00 Test Item Value Reference Range Interpretation Comments BF COLOR Yellow (test code = 1523642958) BF WBC Count See_Comment [Automated (test code = message] The sy stem 7054566002) which generated this result transmitted reference range : /?L. The refere nce range was not u sed to interpret th is result as normal/abnormal . BF RBC Count See_Comment [Automated (test code = message] The sy stem 6115330180) which generated this result transmitted reference range : /?L. The refere nce range was not u sed to interpret th is result as normal/abnormal . LUZ (test The reference range code = LUZ) and other method performance specifications have not been established for this body fluid. ?The test results must be integrated into the clinical context for interpretation. [facility] CenterAmylase Body [id number] 00:04:00 Test Item Value Reference Range Interpretation Comments AMYLASE BF (test <30 U/L code = 2128481839) UNSPUN BODY Yellow FLUID COLOR (test code = 0257293443) UNSPUN BODY Slightly Cloudy FLUID CLARITY (test code = 3007355558) SPUN BODY FLUID Yellow COLOR (test code = 5005276350) SPUN BODY FLUID Clear CLARITY (test code = 3520988576) Sediment (test The sediment code = volume is <0.9 8708680248) mLs of the total fluid volume of 2mL and its color is white and red. LUZ (test code = Test developed and LUZ) characteristics determined [facility]. [facility] CenterGlucose Body [id number] 00:04:00 Test Item Value Reference Range Interpretation Comments GLUCOSE BF (test 291 mg/dL code = 4276241085) UNSPUN BODY Yellow FLUID COLOR (test code = 2747520616) UNSPUN BODY Slightly Cloudy FLUID CLARITY (test code = 7464021421) SPUN BODY FLUID Yellow COLOR (test code = 4078753894) SPUN BODY FLUID Clear CLARITY (test code = 5327858498) Sediment (test The sediment code = volume is <0.7 2899930379) mLs of the total fluid volume of 2mL and its color is white and red. LUZ (test code = Test developed and LUZ) characteristics determined [facility]. [facility] CenterTotal Protein Body [id number] 00:04:00 Test Item Value Reference Range Interpretation Comments T.PROT BF (test 3600.0 mg/dL code = 0977252513) UNSPUN BODY Yellow FLUID COLOR (test code = 1855012460) UNSPUN BODY Slightly Cloudy FLUID CLARITY (test code = 3794236929) SPUN BODY FLUID Yellow COLOR (test code = 3698955471) SPUN BODY FLUID Clear CLARITY (test code = 0371217957) Sediment (test The sediment code = volume is <0.2 2372053124) mLs of the total fluid volume of 2mL and its color is white and red. LUZ (test code = Test developed and LUZ) characteristics determined [facility]. [facility] CenterLD TOTAL BODY [id number] 00:04:00 Test Item Value Reference Range Interpretation Comments LDH BF (test 295 U/L code = 5346564707) UNSPUN BODY Yellow FLUID COLOR (test code = 3877500965) UNSPUN BODY Slightly Cloudy FLUID CLARITY (test code = 6467305460) SPUN BODY FLUID Yellow COLOR (test code = 4434437855) SPUN BODY FLUID Clear CLARITY (test code = 6933040314) Sediment (test The sediment code = volume is <0.0 7844475771) mLs of the total fluid volume of 2mL and its color is white and red. LUZ (test code = Test developed and LUZ) characteristics determined [facility]. [facility] CenterPH, Body [id number] 23:49:00 Test Item Value Reference Range Interpretation Comments PH BF (test code = 9586639279) UNSPUN BODY FLUID COLOR Yellow (test code = 7294719081) UNSPUN BODY FLUID Cloudy CLARITY (test code = 7744693497) SPUN BODY FLUID COLOR Yellow (test code = 5975514639) SPUN BODY FLUID CLARITY Clear (test code = 6424991922) Sediment (test code = The se diment volume is 8595055109) <0.1 mLs of the total fluid volume of 1.5mL and its color i s white. [facility] CenterPOCT GLUCOSE (AUTOMATED)2020-06-28 22:56:00 Test Item Value Reference Range Interpretation Comments POCT GLU (test code = 0146956813) 345 mg/dL 70-110 H Lab Interpretation (test code = Abnormal 19118-3) [facility] CenterTROPONIN [id number] 21:14:00 Test Item Value Reference Range Interpretation Comments TROPONIN I (test 0.016 ng/mL See_Comment [Automated code = 5102938880) message] The system which generated this result [...] ? Lab Interpretation Normal (test code = 87583-3) [facility] CenterVITAMIN B12, [id number] 20:47:00 Test Item Value Reference Range Interpretation Comments VIT B12 (test code = 233 pg/mL 240-930 L 5544212833) LUZ (test code = LUZ) Biotin has been reported to cause a positive bias, interpret results relative to patient's use of biotin. Lab Interpretation (test Abnormal code = 55195-7) [facility] CenterLEGIONELLA URINARY ANTIGEN [id number] 20:03:00 Test Item Value Reference Range Interpretation Comments Legionella Urinary Negative Negative Antigen (test code = 1241347950) LUZ (test code = LUZ) Negative for [...] test. Lab Interpretation (test Normal code = 37581-9) [facility] CenterPNEUMOCOCCAL [id number] 20:03:00 Test Item Value Reference Range Interpretation Comments S. pneumoniae antigen (test code = Negative Negative 5039161776) Lab Interpretation (test code = Normal 97792-6) [facility] CenterIR THORACENTESIS WITH [id number] 19:52:481. ?Successful ultrasound-guided thoracentesis with removal of [...] fluid was removed from the rightpleural space. [facility], Radiant Results Inft User - 06/28/2020 1:53 PM CSTStudy: Ultrasound guided right thoracentesis. Technique: Informed consent was obtained from the patient. Patient was placed in the upright position and under sonographic evaluationan appropriate site for access to the pleural effusion was obtained. The soft tissues overlying the pleural effusion was prepped and draped in asterile manner. Local anesthesia was administered with 1% lidocaine. Under ultrasound guidance catheter was introduced into the pleuraleffusion.Findings:1300 cc of slightly dark yellow color fluid was removed from the rightpleural space.IMPRESSION1. Successful ultrasound-guided thoracentesis with removal of 1300 ccpleural effusion from the right hemithorax. Several samples obtained andsent to the pathology laboratory for additional testing.2. At the completion of theexamination, patient complained of midlinechest pain like he was having heart attack. Chest x-ray was done veryquickly and the hospitalist was contacted immediately and was informed ofthe patient's complaints. Patient was transferred to the floor in stablecondition.[facility] CenterXR CHEST 1 [id number] 19:47:44HISTORY: S/P right thoracentesis. FINDINGS: AP upright view of the chest is obtained and compared with06/27/2020 study. Right-sided thoracentesis is noted. Small amount ofresidual pleural effusion suspected, some of which could be loculated.Cardiomegaly noted. No pneumothorax. CONCLUSIONS: S/P right thor acentesis. Small residual effusion noted whichcould be loculated. No pneumothorax. [facility], Radiant Results Inft User - 06/28/2020 1:48 PM CSTHISTORY: S/P right thoracentesis.FINDINGS: AP upright view of the chest is obtained and compared with06/27/2020 study. Right-sided thoracentesis is noted. Small amount ofresidual pleural effusion suspected, some of which could be loculated.Cardiomegaly noted. No pneumothorax.CONCLUSIONS: S/P right thoracentesis. Small residual effusion noted whichcould be loculated. No pneumothorax.[facility] CenterPROCALCITONIN2021-02-04 18:42:00 Test Item Value Reference Range Interpretation Comments Procalcitonin (test 0.03 ng/mL <0.07 code = 2463589045) LUZ (test code = LUZ) INTERPRETATION OF [...] lung abscess/empyema. For further information please refer to:[email or web address] Lab Interpretation Normal (test code = 22619-4) [facility] CenterPOCT GLUCOSE (AUTOMATED)2020-06-28 18:27:00 Test Item Value Reference Range Interpretation Comments POCT GLU (test code = 7386059722) 350 mg/dL 70-110 H Lab Interpretation (test code = Abnormal 19245-0) [facility] CenterFOLATE2021-02-04 17:57:00 Test Item Value Reference Range Interpretation Comments FOLATE SER (test code = >20.0 3-20 H Biot in has been 1499730888) reported to cau se a positive bias, interpret resul ts relative to patient's use o f biotin. Lab Interpretation (test Abnormal code = 40739-1) [facility] CenterVITAMIN D, [id number] 17:07:00 Test Item Value Reference Range Interpretation Comments VIT D 25OH (test code = 31 ng/mL 25-80 47935-4) LUZ (test code = LUZ) Deficiency: <20 ng/mLInsufficiency : 20-24 ng/mLOptimal: 25-80 ng/mL Lab Interpretation (test Normal code = 10174-5) [facility] CenterUREA NITROGEN, URINE [id number] 16:53:00 Test Item Value Reference Range Interpretation Comments UREA N UR (test code = 5736568244) 500 mg/dL [facility] CenterFERRITIN [id number] 15:36:00 Test Item Value Reference Range Interpretation Comments FERRITIN (test code = 21.9 ng/mL 18-464 4322531470) LUZ (test code = LUZ) Biotin has been reported to cause a negative bias, interpret results relative to patient's use of biotin. Lab Interpretation (test Normal code = 28406-3) [facility] CenterTHYROID STIMULATING [id number] 15:28:00 Test Item Value Reference Range Interpretation Comments TSH (test code = See_Comment [Automated message] 1404751500) The system [employer] generated this result transmitted ref erence range: 0.45 - 4 .70 mIU/L. The refe rence range was not u sed to interpret this result as normal/abnor mal. Lab Interpretation (test Normal code = 00634-8) [facility] CenterPROTHROMBIN TIME / [id number] 14:32:00 Test Item Value Reference Range Interpretation Comments PROTIME PATIENT (test See_Comment H [Auto mated message] code = 5964-2) The system [employer] generated this result transmitted ref erence range: 12.0 - 1 4.7 Seconds. The reference range was not used to int erpret this result as normal/abnormal . INR (test code = 6301-6) Nor mal INR <1.1; Warfarin Therap eutic range 2.0 to 3. 0 or 2.5 to 3.5, dep ending upon the indica tions. Lab Interpretation (test Abnormal code = 56160-0) [facility] CenterSEDIMENTATION [id number] 14:20:00 Test Item Value Reference Range Interpretation Comments ESR (test code = See_Comment H [Automated message] 4529324031) The system [employer] generated this result transmitted ref erence range: 0 - 10 m m/HR. The reference r stephanie was not used to interpret this result as normal/abnor mal. Lab Interpretation (test Abnormal code = 63619-7) [facility] CenterPOCT GLUCOSE (AUTOMATED)2020-06-28 14:14:00 Test Item Value Reference Range Interpretation Comments POCT GLU (test code = 1665841261) 291 mg/dL 70-110 H Lab Interpretation (test code = Abnormal 22122-9) [facility] CenterGLYCOSYLATED HEMOGLOBIN (A1C)2020-06-28 14:00:00 Test Item Value Reference Range Interpretation Comments HGB A1C (test code = 10.5 % 4-6 H 4548-4) LUZ (test code = LUZ) %A1C (NGSP) Interpretation (ADA)4.8-5.6 ? ? Normal or (Non-Diabetic Range)5.7-6.4 ? ? Increased Risk (Pre-Diabetic)>6.5 ?Diabetes Indicated Lab Interpretation Abnormal (test code = 61276-9) [facility] CenterTROPONIN [id number] 13:38:00 Test Item Value Reference Range Interpretation Comments TROPONIN I (test 0.013 ng/mL See_Comment [Automated code = 5672827754) message] The system which generated this result [...] ? Lab Interpretation Normal (test code = 84027-9) [facility] CenterIRON [id number] 13:36:00 Test Item Value Reference Range Interpretation Comments IRON (test code = 2641795302) 42 ug/dL 50-160 L TIBC (test code = 0244758196) 384 ug/dL 250-410 % FE SAT (test code = 5088218308) 11 % 20-50 L Lab Interpretation (test code = Abnormal 27733-0) [facility] CenterN-TERMINAL [id number] 13:35:00 Test Item Value Reference Range Interpretation Comments NT-proBNP (test code 1280 pg/mL See_Comment H [Autom ated = 4319684876) message] The system which generated this result transmitted reference range : <=450. The reference range was not used to interpret this result as normal/abnormal . LUZ (test code = LUZ) Biotin has been reported to cause a negative bias, interpret results relative to patient's use of biotin. Lab Interpretation Abnormal (test code = 00951-9) [facility] CenterLactate [id number] 13:29:00 Test Item Value Reference Range Interpretation Comments LDH (test code = 9569306152) 341 U/L 300-600 Lab Interpretation (test code = Normal 21691-5) [facility] CenterMAGNESIUM2021-02-04 13:28:00 Test Item Value Reference Range Interpretation Comments MAGNESIUM (test code = 2266302300) 1.6 mg/dL 1.7-2.4 L Lab Interpretation (test code = Abnormal 03390-0) [facility] CenterCOMP. METABOLIC PANEL (23244)2020-06-28 13:27:00 Test Item Value Reference Range Interpretation Comments NA (test code = 138 mmol/L 135-145 3281248375) K (test code = 4.1 mmol/L 3.5-5 8960296891) CL (test code = 97 mmol/L 98-108 L 3388437519) CO2 TOTAL (test code = 29 mmol/L 23-31 4454958145) AGAP (test code = 2-16 8385036148) BUN (test code = 20 mg/dL 7-23 1079374038) GLUCOSE (test code = 251 mg/dL 70-110 H 6547299918) CREATININE (test code = 0.86 mg/dL 0.6-1.25 0895864178) TOTAL BILI (test code = 0.8 mg/dL 0.1-1.3 4729328696) CALCIUM (test code = 9.5 mg/dL 8.6-10.6 7119441809) T PROTEIN (test code = 7.0 g/dL 6.3-8.2 3135346857) ALBUMIN (test code = 4.1 g/dL 3.5-5 5136201808) ALK PHOS (test code = 75 U/L 34-122 3323775333) ALTv (test code = 11 U/L 5-50 1742-6) AST(SGOT) (test code = 15 U/L 13-40 9602075666) eGFR Calculation mL/min/1.73m2 (Non-) (test code = 9887203068) eGFR Calculation mL/min/1.73m2 () (test code = 6544783195) LUZ (test code = LUZ) Association of [...] tests). Lab Interpretation Abnormal (test code = 01873-7) [facility] CenterPHOSPHORUS2021-02-04 13:27:00 Test Item Value Reference Range Interpretation Comments PHOSPHORUS (test code = 1876788425) 3.6 mg/dL 2.5-5 Lab Interpretation (test code = Normal 71638-1) [facility] CenterURIC [id number] 13:27:00 Test Item Value Reference Range Interpretation Comments URIC ACID (test code = 7874471000) 9.3 mg/dL 3.6-8 H Lab Interpretation (test code = Abnormal 02797-1) [facility] CenterLIPID PANEL (22051)(TOTAL CHOLESTEROL, TRIGLYCERIDES, HDL)2020-06-28 13:23:00 Test Item Value Reference Range Interpretation Comments CHOL (test code = 100 mg/dL 120-200 L 3077478237) HDL (test code = 25 mg/dL >40 L 4999995915) HDLC RATIO (test code = See_Comment [Au tomated message] 1235599027) The system [employer] generated this result transmit beatrice reference range : <=5.0. The refe rence range was not u sed to interpret th is result as normal/abnormal . TRIG (test code = 245 mg/dL 30-170 H 6351300131) LDL CHOL (test code = 26 mg/dL See_Comment [Auto mated message] 32718-4) The system [employer] generated this result transmit beatrice reference range : <=160. The refe rence range was not u sed to interpret th is result as normal/abnormal . VLDL (test code = 49 mg/dL 5-60 5144193341) Lab Interpretation (test Abnormal code = 33035-7) [facility] CenterMAGNESIUM2021-02-04 13:23:00 Test Item Value Reference Range Interpretation Comments MAGNESIUM (test code = 7728945039) 1.7 mg/dL 1.7-2.4 Lab Interpretation (test code = Normal 94681-6) [facility] CenterPHOSPHORUS2021-02-04 13:23:00 Test Item Value Reference Range Interpretation Comments PHOSPHORUS (test code = 5083015230) 3.7 mg/dL 2.5-5 Lab Interpretation (test code = Normal 07586-3) [facility] CenterURIC [id number] 13:22:00 Test Item Value Reference Range Interpretation Comments URIC ACID (test code = 1847363611) 9.6 mg/dL 3.6-8 H Lab Interpretation (test code = Abnormal 94676-0) [facility] CenterPROTEIN CREAT RATIO URINE [id number] 13:17:00 Test Item Value Reference Range Interpretation Comments T. PROT U (test code 11 mg/dL = 2888-6) CREAT U (test code = 51.4 mg/dL 8196659097) Protein/Creatinine 0.0-2.0 Ratio Urine (test code = 0384101488) LUZ (test code = LUZ) Random Urine Total Protein Reference Ranges Random Specimen: ? Less than 10 mg/dLFirst Morning Specimen: ? ?Less than 20 mg/dL ? [facility] CenterSODIUM, URINE [id number] 13:13:00 Test Item Value Reference Range Interpretation Comments NA URINE (test code = 4263711395) 113 mmol/L [facility] CenterADC / LCC - DRUG SCREEN [id number] 13:06:00 Test Item Value Reference Range Interpretation Comments BENZO U (test code = Presumptive Positive Negative A 8573803002) KADIE U (test code = Negative Negative 7135865204) AMPHET (test code = Negative Negative 6520639378) THC (test code = Negative Negative 8123027884) METHADONE (test code = Negative Negative 5056355030) Meth U (test code = Negative Negative 5090329381) OPIATES (test code = Negative Negative 1001655627) Cocaine Metabolite (test Negative Negative code = 4446667687) PROPOXY (test code = Negative Negative 2205936248) Tric U (test code = Negative Negative 6539657480) PCP (test code = Negative Negative 4575519058) OXYCOD (test code = Negative Negative 0205850083) LUZ (test code = LUZ) Urine Drug [...] testing). Lab Interpretation (test Abnormal code = 79302-9) [facility] WITH [id number] 12:45:00 Test Item Value Reference Range Interpretation Comments WBC (test code = See_Comment [Automated 3990-2) message] The sy stem which generated this result transmitted reference range : 4.20 - 10.70 10*3/?L. The reference range was not used to interpret this result as normal/abnormal . RBC (test code = See_Comment L [Automated 079-8) message] The sy stem which generated this [...] RDW-SD (test code = 50.2 fL 38.5-51.6 66199-5) RDW-CV (test code = 16.0 % 12.1-15.4 H 788-0) PLT (test code = See_Comment [Automated 777-3) message] The sy stem which generated this result transmitted reference range : 150 - 328 10*3/ ?L. The reference r stephanie was not used to interpret this result as normal/abnormal . MPV (test code = 11.0 fL 9.8-13 49142-6) NRBC/100 WBC (test See_Comment [Automat ed code = 3804361778) message] The system which generated this result transmitted reference range : 0.0 - 10.0 /100 WBCs. The refer ence range was not u sed to interpret th is result as normal/abnormal . NRBC x10^3 (test code <0.01 See_Comment [Auto mated = 1336215961) message] The s ystem which generated this result transmitted reference range : 10*3/?L. The reference range was not used to interpret this result as normal/abnormal . GRAN MAT (NEUT) % 63.7 % (test code = 770-8) IMM GRAN % (test code 0.50 % = 8920607173) LYMPH % (test code = 21.7 % 736-9) MONO % (test code = 10.2 % 5905-5) EOS % (test code = 2.9 % 713-8) BASO % (test code = 1.0 % 706-2) GRAN MAT x10^3(ANC) 4.02 10*3/uL 1.99-6.95 (test code = 5061354922) IMM GRAN x10^3 (test 0.03 10*3/uL 0-0.06 code = 1331349734) LYMPH x10^3 (test code 1.37 10*3/uL 1.09-3.23 = 731-0) MONO x10^3 (test code 0.64 10*3/uL 0.36-1.02 = 742-7) EOS x10^3 (test code = 0.18 10*3/uL 0.06-0.53 711-2) BASO x10^3 (test code 0.06 10*3/uL 0.01-0.09 = 704-7) Lab Interpretation Abnormal (test code = 54047-3) [facility] CenterCT CHEST PULMONARY [id number] 04:06:45 No acute pulmonary embolism. Moderate volume [...] reviewed this study and agree with the abovereport.[facility] CenterXR CHEST 1 [id number] 01:14:52 Small to moderate right pleural effusion [...] aortic calcifications. The upper abdomen is unremarkable. [facility], Radiant Results Inft User - 06/27/2020 7:15 [...] atelectasis orinfiltrate.RL: [id number] of report UnTexas [facility]wallTROPONIN I 2020-06-28 01:06:00 Test Item Value Reference Range Interpretation Comments TROPONIN I (test 0.012 ng/mL See_Comment [Automated code = 7640276803) message] The system which generated this result [...] ? Lab Interpretation Normal (test code = 05799-7) [facility] CenterPROTHROMBIN TIME / [id number] 01:03:00 Test Item Value Reference Range Interpretation [...] tions. Lab Interpretation (test Abnormal code = 02052-3) [facility] CenterN-TERMINAL [id number] 01:03:00 Test Item Value Reference Range Interpretation Comments NT-proBNP (test code 1200 pg/mL See_Comment H [Autom ated = 9066443285) message] The system which generated this result transmitted reference range : <=450. The reference range was not used to interpret this result as normal/abnormal . LUZ (test code = LUZ) Biotin has been reported to cause a negative bias, interpret results relative to patient's use of biotin. Lab Interpretation Abnormal (test code = 96988-3) [facility] CenteraPTT2021-02-04 00:59:00 Test Item Value Reference Range Interpretation Comments APTT Patient (test See_Comment [Automat ed code = 3173-2) message] The system which generated this result transmitted reference range : 23 - 38 Seconds . The reference range was not used to interpr et this result as normal/abnormal . LUZ (test code = LUZ) [facility] mean normal value for aPTT is 30 seconds. Lab Interpretation Normal (test code = 61536-7) [facility] CenterCOMP. METABOLIC PANEL (22514)2020-06-28 00:54:00 Test Item Value Reference Range Interpretation Comments NA (test code = 136 mmol/L 135-145 8872063646) K (test code = 4.2 mmol/L 3.5-5 4891452343) CL (test code = 98 mmol/L 98-108 6783446524) CO2 TOTAL (test code = 26 mmol/L 23-31 8102016344) AGAP (test code = 2-16 7963430945) BUN (test code = 19 mg/dL 7-23 4951677545) GLUCOSE (test code = 284 mg/dL 70-110 H 5955998515) CREATININE (test code = 1.03 mg/dL 0.6-1.25 7243326424) TOTAL BILI (test code = 0.8 mg/dL 0.1-1.0 4033841626) CALCIUM (test code = 9.7 mg/dL 8.6-10.6 8231814204) T PROTEIN (test code = 7.6 g/dL 6.3-8.2 5613441749) ALBUMIN (test code = 4.4 g/dL 3.5-5 3040231743) ALK PHOS (test code = 88 U/L 34-122 1528340004) ALTv (test code = 13 U/L 5-50 1742-6) AST(SGOT) (test code = 17 U/L 13-40 7921142413) eGFR Calculation mL/min/1.73m2 (Non-) (test code = 5024068401) eGFR Calculation mL/min/1.73m2 () (test code = 4069014444) LUZ (test code = LUZ) Association of [...] tests). Lab Interpretation Abnormal (test code = 78063-5) [facility] CenterLIPASE, [id number] 00:53:00 Test Item Value Reference Range Interpretation Comments LIPASE (test code = 8334678913) 58 U/L 0-220 Lab Interpretation (test code = Normal 48226-8) [facility] CenterCOVID-19 (ID NOW RAPID TESTING)2020-06-28 00:53:00 Test Item Value Reference Range Interpretation Comments SARS-CoV-2 Rapid ID NOW Not Detected Not Detected (test code = 64342-2) LUZ (test code = LUZ) ID NOW COVID-19 Assay is an isothermal nucleic acid amplification test intended for the qualitative detection of nucleic acid from SARS-CoV-2 viral RNA in nasopharyngeal ([employer]ENT [employer]) specimens. It is used under Emergency Use [...] indicated. Lab Interpretation Normal (test code = 73633-0) [facility] WITH [id number] 00:35:00 Test Item Value Reference Range Interpretation Comments WBC (test code = See_Comment [Automated 3282-2) message] The sy stem which generated this result transmitted reference range : 4.20 - 10.70 10*3/?L. The reference range was not used to interpret this result as normal/abnormal . RBC (test code = See_Comment L [Automated 709-8) message] The sy stem which generated this [...] RDW-SD (test code = 50.7 fL 38.5-51.6 62353-4) RDW-CV (test code = 16.2 % 12.1-15.4 H 788-0) PLT (test code = See_Comment [Automated 777-3) message] The sy stem which generated this result transmitted reference range : 150 - 328 10*3/ ?L. The reference r stephanie was not used to interpret this result as normal/abnormal . MPV (test code = 11.0 fL 9.8-13 68309-4) NRBC/100 WBC (test See_Comment [Automat ed code = [id number]) message] The system which generated this result transmitted reference range : 0.0 - 10.0 /100 WBCs. The refer ence range was not u sed to interpret th is result as normal/abnormal . NRBC x10^3 (test code <0.01 See_Comment [Auto mated = [id number]) message] The s ystem which generated this result transmitted reference range : 10*3/?L. The reference range was not used to interpret this result as normal/abnormal . GRAN MAT (NEUT) % 61.2 % (test code = 770-8) IMM GRAN % (test code 0.50 % = [id number]) LYMPH % (test code = 23.9 % 736-9) MONO % (test code = 10.4 % 5905-5) EOS % (test code = 2.9 % 713-8) BASO % (test code = 1.1 % 706-2) GRAN MAT x10^3(ANC) 3.99 10*3/uL 1.99-6.95 (test code = [id number]) IMM GRAN x10^3 (test 0.03 10*3/uL 0-0.06 code = [id number]) LYMPH x10^3 (test code 1.56 10*3/uL 1.09-3.23 = 731-0) MONO x10^3 (test code 0.68 10*3/uL 0.36-1.02 = 742-7) EOS x10^3 (test code = 0.19 10*3/uL 0.06-0.53 711-2) BASO x10^3 (test code 0.07 10*3/uL 0.01-0.09 = 704-7) Lab Interpretation Abnormal (test code = 10066-7) [facility]
[2022-07-05] MEDS ORDERED: TRAMADOL HCL 50 MG TAB ONE (18:42)
--- NOTE | 2022-07-05 19:12 | ER ---
Nurse's Notes [facility] Name: Vasu Carrera Age: 86 yrs Sex: Male : 1935 Arrival Date: 07/05/2022 Time: 17:47 Bed 2 Private MD: Diagnosis: Low back pain Presentation: 07/05 18:16 Chief complaint: Patient states: back pain x 40 years. Pt reports it's gotten worse the ss past few days. believes that his pain may be worse because he ran out of tramadol 2 days ago. Coronavirus screen: Client denies travel out of the [place] in the last 14 days. Ebola Screen: Patient denies exposure to infectious person. Patient denies travel to an Ebola-affected area in the 21 days before illness onset. Initial Sepsis Screen: Does the patient meet any 2 criteria? No. Patient's initial sepsis screen is negative. Does the patient have a suspected source of infection? No. Patient's initial sepsis screen is negative. Risk Assessment: Do you want to hurt yourself or someone else? Patient reports no desire to harm self or others. Onset of symptoms is unknown. 18:16 Method Of Arrival: Ambulatory ss 18:16 Acuity: WILBERT 3 ss Historical: - Allergies: 18:17 Morphine; ss 18:17 Sulfa (Sulfonamide Antibiotics); ss - PMHx: 18:17 Atrial fibrillation; Congestive heart failure; diabetes mellitus; Hypertensive disorder;ss - Immunization history:: Client reports having NOT received the Covid vaccine. - Social history:: Smoking status: Patient denies any tobacco usage or history of. Screenin:37 [facility] ED Fall Risk Assessment (Adult) Score/Fall Risk Level 0 - 2 = Low Risk hb Oriented to surroundings, Maintained a safe environment, Educated pt \T\ family on fall prevention, incl call for assistance when getting out of bed. Abuse screen: Denies threats or abuse. Denies injuries from another. Nutritional screening: No deficits noted. Tuberculosis screening: No symptoms or risk factors identified. Assessment: 18:36 General: Appears in no apparent distress. Behavior is calm, cooperative. Pain: Pain hb currently is 10 out of 10 on a pain scale. Neuro: Level of Consciousness is awake, alert, obeys commands, Oriented to person, place, time, situation. Cardiovascular: Patient's skin is warm and dry. Respiratory: Respiratory effort is even, unlabored, Respiratory pattern is regular, symmetrical. GI: No signs and/or symptoms were reported involving the gastrointestinal system. : No signs and/or symptoms were reported regarding the genitourinary system. EENT: No signs and/or symptoms were reported regarding the EENT system. Derm: Skin is pink, warm \T\ dry. Musculoskeletal: Reports chronic back pain. 19:26 Reassessment: Patient appears in no apparent distress at this time. Patient and/or jb4 family updated on plan of care and expected duration. Pain level reassessed. Patient is alert, oriented x 3, equal unlabored respirations, skin warm/dry/pink. Patient states feeling better. Vital Signs: 18:16 BP 141 / 77; Pulse 71; Resp 16; Temp 98.2(TE); Pulse Ox 95% on R/A; Weight 79.38 kg; ss Height 5 ft. 11 in. (180.34 cm); Pain 10/10; 18:16 Body Mass Index 24.41 (79.38 kg, 180.34 cm) ED Course: 17:47 Patient arrived in ED. rg4 18:17 Triage completed. ss 18:17 Arm band placed on right wrist. 18:20 Santana Hernandez PA is PHCP. alena 18:20 Chet Grajeda MD is Attending Physician. alena 18:36 Elise Gonsalez, JULY is Primary Nurse. hb 18:37 Patient has correct armband on for positive identification. hb 19:12 Primary Nurse role handed off by Elise Gonsalez, JULY mw2 19:26 No provider procedures requiring assistance completed. Patient did not have IV access jb4 during this emergency room visit. Administered Medications: 18:40 Drug: traMADol 50 mg Route: PO; hb Medication: 18:40 VIS not applicable for this client. hb Outcome: 19:11 Discharge ordered by . brennan 19:26 Discharged to home ambulatory, with family. jb4 19:26 Condition: stable 19:26 Discharge instructions given to patient, Instructed on discharge instructions, follow up and referral plans. medication usage, Demonstrated understanding of instructions, follow-up care, medications, Prescriptions given X 1. 19:26 Patient left the ED. jb4 Signatures: Santana Hernandez PA PA jmm Smirch, Shelby, RN RN Elise Gonsalez, RN RN hb Faheem, Grisel rg4 Jose Alfredo Levine, RN RN jb4 Keanu, Edi mw2
--- NOTE | 2022-07-05 19:12 | EDPHYS ---
Physician Documentation [facility] Name: Vasu Carrera Age: 86 yrs Sex: Male : 1935 Arrival Date: 07/05/2022 Time: 17:47 Bed 2 Private MD: MARLON Physician Chet Grajeda HPI: 07/05 18:27 This 86 yrs old Male presents to ER via Ambulatory with complaints of Back Pain. jmm 18:27 The patient presents with pain that is acute. The symptoms are located in the low back. jmm Onset: The symptoms/episode began/occurred gradually. The pain does not radiate. Is an 86-year-old male with history of atrial fibrillation, CHF, diabetes mellitus the presents emerged part with complaints of low back pain. Patient states running out of his tramadol 2 days ago. Denies any change in character of the pain. Symptoms have been ongoing for approximately 40 years which wax and wane. Denies fever or bladder or bowel issues.. Historical: - Allergies: 18:17 Morphine; ss 18:17 Sulfa (Sulfonamide Antibiotics); ss - PMHx: 18:17 Atrial fibrillation; Congestive heart failure; diabetes mellitus; Hypertensive disorder;ss - Immunization history:: Client reports having NOT received the Covid vaccine. - Social history:: Smoking status: Patient denies any tobacco usage or history of. ROS: 18:27 Constitutional: Negative for fever, chills, and weight loss, Cardiovascular: Negative jmm for chest pain, palpitations, and edema, Respiratory: Negative for shortness of breath, cough, wheezing, and pleuritic chest pain. 18:27 Back: Positive for pain with movement. 18:27 All other systems are negative. Exam: 18:27 Constitutional: This is a well developed, well nourished patient who is awake, alert, jmm and in no acute distress. Head/Face: atraumatic. Eyes: EOMI, no conjunctival erythema appreciated ENT: Moist Mucus Membranes Neck: Trachea midline, Supple Chest/axilla: Normal chest wall appearance and motion. Cardiovascular: Regular rate and rhythm. No edema appreciated Respiratory: Normal respirations, no respiratory distress appreciated Abdomen/GI: Non distended 18:27 Skin: General appearance color normal MS/ Extremity: Moves all extremities, no obvious deformities appreciated, no edema noted to the lower extremities Neuro: Awake and alert Psych: Behavior is normal, Mood is normal, Patient is cooperative and pleasant 18:27 Back: pain, that is moderate. 18:27 Musculoskeletal/extremity: ROM: intact in all extremities. 18:27 Skin: Appearance: Color: normal in color. 18:27 Neuro: Orientation: is normal, Mentation: is normal, Memory: is normal. 18:27 Psych: Behavior/mood is pleasant, cooperative. Vital Signs: 18:16 BP 141 / 77; Pulse 71; Resp 16; Temp 98.2(TE); Pulse Ox 95% on R/A; Weight 79.38 kg; ss Height 5 ft. 11 in. (180.34 cm); Pain 10/10; 18:16 Body Mass Index 24.41 (79.38 kg, 180.34 cm) ss MDM: 18:27 Patient medically screened. [facility] 19:10 Data reviewed: vital signs, nurses notes. Test considered but Not performed: X-ray: [facility] chronic pain, similar character to previous episodes. Counseling: I had a detailed discussion with the patient and/or guardian regarding: the historical points, exam findings, and any diagnostic results supporting the discharge/admit diagnosis, the need for outpatient follow up, to return to the emergency department if symptoms worsen or persist or if there are any questions or concerns that arise at home. Response to treatment: the patient's symptoms have mildly improved after treatment. Administered Medications: 18:40 Drug: traMADol 50 mg Route: PO; hb Disposition Summary: 07/05/22 19:11 Discharge Ordered Location: Home [facility] Condition: Stable [facility] Diagnosis - Low back pain [facility] Followup: [facility] - With: Private Physician - When: 2 - 3 days - Reason: Recheck today's complaints, Continuance of care, Re-evaluation by your physician Discharge Instructions: - Discharge Summary Sheet [facility] - Chronic Back Pain [facility] Forms: - Medication Reconciliation Form [facility] - Thank You Letter [facility] - Antibiotic Education [facility] - Prescription Opioid Use [facility] Prescriptions: - Tramadol 50 mg Oral Tablet - take 1 tablet by ORAL route every 8 hours as needed; 12 tablet; Refills: 0, [facility] Product Selection Permitted Signatures: Chet Grajeda MD MD cha Mickail, Joel, PA PA jmm Smirch, Shelby, RN RN Elise Gonsalez RN RN hb
[2022-07-05 19:30] VITALS: BP 141/77; TEMP 98.2; O2SAT 95
== END 2022-07-05 19:26 | disposition home or self-care (01) ==
LOC: ER 17:45
DX: M54.50 Low back pain, unspecified (principal); I10 Essential (primary) hypertension; I50.9 Heart failure, unspecified; Z88.2 Allergy status to sulfonamides; Z88.5 Allergy status to narcotic agent
CPT/HCPCS: 99283

== ENCOUNTER 2022-08-14 12:36 | Inpatient (IN) | payer OTHER ==
[2022-08-14 13:24] LABS: Absolute Lymphocytes (CBC) 1.1 K/uL (0.7-4.9); Hematocrit 25.2 % (39.6-49.0); Lymphocytes % 17.2 % (15.3-44.8); MCV 80.9 fL (80-100); MPV 9.4 fL (7.6-11.3); RBC Red Blood Cell Count 3.11 M/uL (4.33-5.43)
--- OUTSIDE RECORDS SUMMARY | 2022-08-14 13:27 | XMS REPORT | Continuity of Care Document ---
:1935 Author Organization [facility] t Address [address] [place] [address] [address] [place] [address] Care Team Providers Name Role Phone CARRIANDRES Primary Care Physician Unavailable Sonja Vale RN [...] Attending Clinician Unavailable Monico Lucas Attending Clinician Cady MUNOZ, Morgan Attending Clinician Addison AUTOMOTIVE PARTS COORDINATOR, Fahad Attending Clinician FAHAD GRIGGS Attending Clinician Unavailable Bhavya MCDOWELL, Bonny Attending Clinician Veronica AUTOMOTIVE PARTS COORDINATOR, Marlena Patiño Attending Clinician GARETT ARMAS Attending Clinician Unavailable Doctor Unassigned, [place] Attending Clinician Unavailable Gramm AUTOMOTIVE PARTS COORDINATOR, Donna A Attending Clinician GRAMM DONNA A Attending Clinician Unavailable CHAITANYA HATCH Admitting Clinician Unavailable Holden MUNOZ, Chaitanya Admitting Clinician MALIK GRANADOS Admitting Clinician Unavailable YOVANI BAUTISTA Admitting Clinician Unavailable CARIN SOLIS Admitting Clinician Unavailable JESSICA OWEN Admitting Clinician Unavailable Jessica Owen DO Admitting Clinician MONICO MARIEE Admitting Clinician Unavailable Cady MUNOZ, Morgan Admitting Clinician Garett Armas MD Admitting Clinician GARETT ARMSA Admitting Clinician Unavailable Payers Payer Name Policy Type Policy Number Effective Date Expiration Date S ource Problems Condition Condition Condition Status Onset Resolution Last Treating Co mments Source Name Details Category Date Date Treatment Clinician Date Dizziness Dizziness Disease Active Uni vers 7-26 ity of 00:00: [place] 00 Medical Branch Chronic Chronic Disease Active Univers atrial atrial 7-01 ity of fibrillati fibrill[place] 00:00: [place] on on Medical Branch Other Other Disease Active Univers chest pain chest pain 6-27 it y of 00:00: [place] 00 Medical Branch COVID-19 COVID-19 Disease Active Unive rs virus RNA virus RNA 6-27 ity of test test 00:00: [place] result result 00 Medical positive positive Branch at limit at limit of of detection detection Atrial Atrial Disease Active 2020-05 Univers fibrillati fibrillati 0-04 it y of on with on with 00:00: [place] RVR RVR 00 Medical Branch Atypical Atypical Disease Active Unive rs chest pain chest pain 2-04 it y of 00:00: 00 Medical Branch Coronary Coronary Disease Active Unive rs artery artery 2-04 ity of disease disease 00:00: [place] involving involving 00 Medi anabell tonto apache tonto apache Branch 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 Unive rs (coronary (coronary 2-04 ity of artery artery 00:00: [place] bypass bypass 00 Medical graft) graft) Branch Essential Essential Disease Active Uni vers hypertensi hypertensi 2-04 it y of on on 00:00: 00 Medical Branch Dyslipidem Dyslipidem Disease Active U nivers ia ia 2-04 ity of 00:00: [place] Medical Branch Chronic Chronic Disease Active Univers [...] of 2-04 ity of both both 00:00: [place] carotid carotid 00 Medical arteries arteries Branch [...] of of 00:00: [place] awareness awareness 00 [facility] anabell Branch Allergies, Adverse Reactions, Alerts Allergy Allergy [...] morphine Active Unknown Commo n [facility] - [facility] Social History Social Habit Start Date Stop Date Quantity Comments Source History of [facility] - Tobacco Use [facility] Sex Assigned At [facility] - [facility] History SDOH Food 2022-02-12 2022-02-12 1 Univers ity of Worry 00:00:00 00:00:00 [place] Medical [place] History SDOH Food 2022-02-12 2022-02-12 1 Univers ity of Scarcity 00:00:00 00:00:00 [place] Medical Branch History SDOH 2022-02-12 2022-02-12 2 University o f Transport Med 00:00:00 00:00:00 [place] Medic al Branch History SDOH 2022-02-12 2022-02-12 2 University o f Transport Non-Med 00:00:00 00:00:00 [place] M anumical Branch Exposure to 2022-01-13 2022-01-23 Not sure [place] of SARS-CoV-2 00:00:00 05:03:00 [facility] (event) Branch Alcohol intake 2022-01-23 2022-01-23 0 /d University of 00:00:00 00:00:00 [facility] Tobacco use and 2017-10-06 2017-10-06 Smokeless tobacco Un iversity of exposure 00:00:00 00:00:00 non-user [facility] Smoking Status Start Date Stop Date Source Never Smoker [facility] Ex-smoker 2017-10-06 00:00:00 2017-10-06 00:00:00 [facility] Medications Ordered Filled Start Stop Current Ordering Indication Dosage Frequency Signature Comments Components Source Medication Medication Date Date Medication? Clinician (SIG) Name Name rosuvastati Yes 5mg 5 mg, Unive rs n (CRESTOR) 02-12 Oral, QHS, it y of tablet 5 mg 02:00: First dose [place] 00 thu02/11/22 at Branch 2100, Until Discontinu ed, Routine rivaroxaban 2022- No [id number] 20mg Take 1 Uni vers (XARELTO) 02-12 tablet by ity of 20 mg 00:00: 04:59 mouth in [place] tablet 00 :00 the Medical morning. Branch Indication s: prevention of thromboemb olism in paroxysmal atrial fibrillati on rivaroxaban 2022- No 5144 20mg Take 1 Uni vers (XARELTO) 02-12 tablet by ity of 20 mg 00:00: 04:59 mouth in [place] tablet 00 :00 the Medical morning. Branch Indication s: prevention of thromboemb olism in paroxysmal atrial fibrillati on levothyroxi 2022- No [id number] 50ug Take 1 Univers ne 50 mcg 02-12 tablet by ity of tablet 00:00: 05:59 mouth [place] 00 :00 every Medical morning [place] for 90 days. pantoprazol 0 2021- No [id number] 40mg Take 1 Univers e 40 mg EC 02-12 tablet by ity of tablet 00:00: 05:59 mouth in [place] 00 :00 the Medical morning Branch for 90 days. levothyroxi 2021- No [id number] 50ug Take 1 Univers ne 50 mcg 02-12 tablet by ity of tablet 00:00: 05:59 mouth [place] 00 :00 every Medical morning Branch for 90 days. pantoprazol 2021- No [id number] 40mg Take 1 Univers e 40 mg EC 02-12 tablet by ity of tablet 00:00: 05:59 mouth in [place] 00 :00 the Medical morning Branch for 90 days. ALPRAZOLAM Yes 1mg Take 1 mg [place] (XANAX XR 9-20 by mouth ity of ORAL) 19:05: daily. [place] 35 Medical Branch Ascorbic Yes 1000mg Take [...] by mouth ity of 19:05: in the [place] [address] morning Medical and 1 mg Branch at noon and 1 mg in the evening. Take with meals. gabapentin Yes 100mg Take 100 [place] 100 mg 9-20 mg by ity of capsule 19:05: mouth 2 [place] [address] (two) Medical times Branch daily. torsemide Yes Take by Unive rs 100 mg 9-20 mouth. ity of tablet 19:05: [place] [address] Medical Branch lisinopriL Yes 10mg Take 10 mg U nivers 10 mg 9-20 by mouth ity of tablet 19:05: in the [place] [address] morning. Medical Branch isosorbide Yes 30mg Take 30 mg U nivers mononitrate 9-20 by mouth. ity of 30 mg 24 hr 19:05: [place] [address] Medical Branch ALPRAZOLAM Yes 1mg Take 1 mg [place] (XANAX XR 9-20 by mouth ity of ORAL) 19:05: daily. [place] [address] Medical Branch Ascorbic Yes 1000mg Take 1,000 U nivers Acid 1,000 9-20 mg by ity of mg TbSR 19:05: mouth 2 [place] [address] (two) Medical times [place] daily. Cholecalcif Yes 400U Take 400 Un [...] mouth [place] 35 daily. Medical Branch magnesium 0 Yes 400mg Take 400 Uni vers oxide 400 9-20 mg by ity of mg tablet 19:05: mouth [place] 35 daily. Medical Branch tamsulosin Yes .4mg Take 0.4 Uni vers 0.4 mg 24 9-20 mg by ity of hr capsule 19:05: mouth [place] 35 daily. Medical Branch traMADOL 50 0 Yes 100mg Take 100 U nivers mg tablet 9-20 mg by ity of 19:05: mouth [place] 35 every 8 Medical (eight) Branch hours as needed for Pain (scale 4-6) or Pain (scale 7-10). May take 1 to 2 tablets Q8H as needed for pain glimepiride 0 Yes 1mg Take 1 mg U nivers 1 mg tablet 9-20 by mouth ity of 19:05: in the [place] [address] morning Medical and 1 mg Branch at noon and 1 mg in the evening. Take with meals. gabapentin Yes 100mg Take 100 [place] 100 mg 9-20 mg by ity of capsule 19:05: mouth 2 [place] 35 (two) Medical times Branch daily. torsemide Yes Take by [facility] rs 100 mg 9-20 mouth. ity of tablet 19:05: [place] [address] Medical Branch lisinopriL Yes 10mg Take 10 mg U nivers 10 mg 9-20 by mouth ity of tablet 19:05: in the [place] [address] morning. Medical Branch isosorbide Yes 30mg Take [...] Until Discontinu ed, Routine, Chest pain levothyroxi 0 2021- No 50ug Take 50 Un savanna [...] [place] mg 00 First dose Medical on [facility] 02/11/22 at 0900, Until Discontinu ed, Routine rivaroxaban Yes 20mg 20 mg, Univ ers (XARELTO) 02-11 Oral, ity of tablet 20 14:00: DAILY, [place] mg 00 First dose Medical on [facility] 02/11/22 at 0900, Until Discontinu ed, Routine pantoprazol Yes 40mg 40 mg, Univ ers e 02-11 Oral, ity of (PROTONIX) 14:00: DAILY, [place] EC tablet 00 First dose Medi anabell 40 mg on [facility] 02/11/22 at 0900, Until Discontinu ed, Routine digoxin Yes 125ug 125 mcg, Unive rs (LANOXIN) 02-11 Oral, ity of tablet 125 14:00: DAILY, [place] mcg 00 First dose Medical on [facility] 02/11/22 at 0900, Until Discontinu ed, Routine aspirin No 325mg 325 mg, Unive rs tablet 325 02-11 Oral, ity of mg 14:00: 07:17 DAILY, [place] 00 :21 First dose Medical on [facility] 02/11/22 at 0900, Until Discontinu ed, Routine Sliding Yes Subcutaneo Univ ers Scale 9-20 us, TID ity of Insulin - 13:00: MEALS+HS, [place] Lispro 00 First dose Medical (HumaLOG) + on Thu Branch Fsbg 02/11/22 at Testing 0800, Until Discontinu ed, Routine levothyroxi Yes 50ug 50 mcg, Uni vers ne 02-11 Oral, ity of (SYNTHROID) 11:00: QAM-0600, [place] tablet 50 00 First dose Medi anabell mcg on Thu02/11/22 at 0600, Until Discontinu ed, Routine NaCl 0.9% 2021- No 500mL at 999 [facility] ers (NS) bolus 02-1120 mL/hr, 500 [...] Routine, Pain (scale 1-3) iopamidol 2021- No [id number] 80mL 80 mL, U nivers (ISOVUE 02-11 Intravenou ity o f 370-500 mL) 02:00: 02:00 s, ONCE, 1 [place] injection 00 :00 dose, On Medica l 80 mL Thu [place] 02/10/22 at 2100, Routine FUROSEMIDE 2021- No 40mg Take 40 mg Univers ORAL 02-11 by mouth 2 ity of 01:07: 00:00 (two) [place] 48 :00 times Medical daily. Branch NaCl 0.9% 2021- No 250mL at 100 [facility] ers (NS) IV 02-11 09-20 mL/hr, IV ity of infusion 00:45: 15:06 Infusion, [place] 250 mL 00 :15 CONTINUOUS Medical , Starting Branch on Thu02/10/22 at 1945, Until Thu02/11/22 at 1006, Routine nitroglycer Yes [id number] .3mg Place 1 Univers in 0.3 mg 9-20 tablet ity of sublingual 00:00: under the [place] tablet 00 tongue Medical every 5 Branch (five) minutes as needed for Chest pain for up to 90 doses. nitroglycer Yes [id number] .3mg Place 1 Univers in 0.3 mg 9-20 tablet ity of sublingual 00:00: under the [place] tablet 00 tongue Medical every 5 Branch (five) minutes as needed for Chest pain for up to 90 doses. rosuvastati 2021- No [id number] 5mg Take 1 Univers n 5 mg 9-20 12-20 tablet by ity of tablet 00:00: 05:59 mouth at [place] 00 :00 bedtime Medical for 90 Branch days. rosuvastati 2021- No [id number] 5mg Take 1 Univers n 5 mg 9-20 12-20 tablet by ity of tablet 00:00: 05:59 mouth at [place] 00 :00 bedtime Medical for 90 Branch [...] 01/23/22 Branch at 0630, JOCELYN nirmatrelvi Yes [id number] 2{tbl} Take 2 Univers r-ritonavir 01-23 [id number] tablets by i ty of (PAXLOVID, 00:00: mouth in [place] EUA,) 00 the Medical 150-100 mg morning Branch tablet and 2 tablets in the evening. nirmatrelvi 2021- No [id number] 2{tbl} Take 2 Univers r-ritonavir 01-23 [id number] tablets by ity of (PAXLOVID, 00:00: 00:00 mouth in [place] EUA,) 00 :00 the Medical 150-100 mg morning Branch tablet and 2 tablets in the evening. ibuprofen 2021- No 600mg 600 mg, Uni vers (IBU) 01-06 Oral, ity of tablet 600 11:30: 11:23 ONCE, 1 [place] mg 00 :00 dose, On Medical Mon Branch 01/06/22 at 0630, JOCELYN iopamidol 2021- No [id number] 70mL 70 mL, Univers (ISOVUE 12-18 Intravenou ity o f 370-500 mL) 01:30: 01:30 s, ONCE, 1 [place] injection 00 :00 dose, On Medica l 70 mL Tue Branch 12/17/21 at 2030, Routine ALPRAZOLAM Yes 1mg Take 1 mg [place] (XANAX XR 7-01 by mouth ity of ORAL) 12:24: daily. [place] [address] Medical Branch Ascorbic 0 Yes 1000mg Take [...] mouth [place] 33 daily. Medical Branch levothyroxi 0 Yes [...] mouth ity o f tablet 12:24: daily. [place] [address] Medical Branch tamsulosin 2022-0 Yes .4mg Take 0.4 Uni vers 0.4 mg 24 7-01 mg by ity of hr capsule 12:24: mouth [place] [address] daily. Medical Branch traMADOL 50 Yes 100mg Take 100 U nivers mg tablet 7-01 mg by ity of 12:24: mouth [place] 33 every 8 Medical (eight) Branch hours as needed for Pain (scale 4-6) or Pain (scale 7-10). May take 1 to 2 tablets Q8H as needed for pain glimepiride 0 Yes 1mg Take 1 mg U nivers 1 mg tablet 7-01 by mouth 2 it y of 12:24: (two) [place] [address] times Medical daily with Branch meals. gabapentin Yes 100mg Take 100 [place] 100 mg 7-01 mg by ity of capsule 12:24: mouth 2 [place] [address] (two) Medical times Branch daily. rosuvastati Yes 5mg Take 5 mg U nivers n 5 mg 7-01 by mouth ity of tablet 12:24: at [place] [address] bedtime. Medical Branch FUROSEMIDE Yes 40mg Take 40 mg U nivers ORAL 7-01 by mouth 2 ity of 12:24: (two) [place] [address] times Medical daily. Branch ALPRAZOLAM Yes 1mg Take 1 mg [place] (XANAX XR 7-01 by mouth ity of ORAL) 12:24: daily. [place] [address] Medical Branch Ascorbic Yes 1000mg Take 1,000 U nivers Acid 1,000 7-01 mg by ity of mg TbSR 12:24: mouth 2 [place] [address] (two) Medical times Branch daily. Cholecalcif Yes [...] 7-01 mcg by ity of 12:24: mouth [place] [address] daily. Medical Branch levothyroxi 2022-0 Yes 50ug Take 50 Uni vers ne 50 mcg 7-01 mcg by ity of tablet 12:24: mouth [place] [address] every Medical morning. Branch magnesium 0 Yes 400mg Take 400 Uni vers oxide 400 7-01 mg by ity of mg tablet 12:24: mouth [place] [address] daily. Medical Branch pantoprazol 0 Yes 40mg Take 40 mg Univers e 40 mg EC 7-01 by mouth ity o f tablet 12:24: daily. [place] [address] Medical Branch tamsulosin 0 Yes .4mg Take 0.4 Uni vers 0.4 mg 24 7-01 mg by ity of hr capsule 12:24: mouth [place] [address] daily. Medical Branch traMADOL 50 2021-0 Yes 100mg Take 100 U nivers mg tablet 7- mg by ity of 12:24: mouth [place] [address] every 8 Medical (eight) Branch hours as needed for Pain (scale 4-6) or Pain (scale 7-10). May take 1 to 2 tablets Q8H as needed for pain glimepiride 0 Yes 1mg Take 1 mg U nivers 1 mg tablet 7- by mouth 2 it y of 12:24: (two) [place] [address] times [facility] daily with Branch meals. gabapentin 0 Yes 100mg Take 100 [place] 100 mg 7-01 mg by ity of capsule 12:24: mouth 2 [place] [address] (two) Medical times [place] daily. rosuvastati 0 Yes 5mg Take 5 mg U nivers n 5 mg 7-01 by mouth ity of tablet 12:24: at [place] [address] bedtime. Medical Branch FUROSEMIDE 2021-0 Yes 40mg Take 40 mg U nivers ORAL 7-01 by mouth 2 ity of 12:24: (two) [place] [address] times Medical daily. Branch ALPRAZOLAM 0 Yes 1mg Take 1 mg [place] (XANAX XR 7-01 by mouth ity of ORAL) 12:24: daily. [place] [address] Medical Branch Ascorbic 2021-0 Yes 1000mg Take 1,000 U nivers Acid 1,000 7-01 mg by ity of mg TbSR 12:24: mouth 2 [place] [address] (two) Medical times [place] daily. Cholecalcif 2021-0 Yes 400U Take 400 [...] mouth [place] 33 daily. Medical Branch pantoprazol Yes 40mg Take 40 mg Univers e 40 mg EC 7-01 by mouth ity o f tablet 12:24: daily. [place] [address] Medical Branch tamsulosin 0 Yes .4mg Take 0.4 Uni vers 0.4 mg 24 7-01 mg by ity of hr capsule 12:24: mouth [place] 33 daily. Medical Branch traMADOL 50 Yes 100mg Take 100 U nivers mg tablet 7-01 mg by ity of 12:24: mouth [place] [address] every 8 Medical (eight) Branch hours as needed for Pain (scale 4-6) or Pain (scale 7-10). May take 1 to 2 tablets Q8H as needed for pain glimepiride 0 Yes 1mg Take 1 mg U nivers 1 mg tablet 7-01 by mouth 2 it y of 12:24: (two) [place] [address] times Medical daily with Branch meals. gabapentin 0 Yes 100mg Take 100 [place] 100 mg 7-01 mg by ity of capsule 12:24: mouth 2 [place] [address] (two) Medical times Branch daily. rosuvastati 0 Yes 5mg Take 5 mg U nivers n 5 mg 7-01 by mouth ity of tablet 12:24: at [place] [address] bedtime. Medical Branch FUROSEMIDE 0 Yes 40mg Take 40 mg U nivers ORAL 7-01 by mouth 2 ity of 12:24: (two) [place] [address] times Medical daily. Branch ALPRAZOLAM 0 Yes 1mg Take 1 mg [place] (XANAX XR 7-01 by mouth ity of ORAL) 12:24: daily. [place] [address] Medical Branch Ascorbic 0 Yes 1000mg Take [...] mouth [place] 33 daily. Medical Branch levothyroxi 0 Yes 50ug Take 50 Uni vers ne 50 mcg 7-01 mcg by ity of tablet 12:24: mouth [place] 33 every Medical morning. Branch magnesium 0 Yes 400mg Take 400 Uni vers oxide 400 7-01 mg by ity of mg tablet 12:24: mouth [place] [address] daily. Medical Branch pantoprazol 0 Yes 40mg Take 40 mg Univers e 40 mg EC 7-01 by mouth ity o f tablet 12:24: daily. [place] [address] Medical Branch tamsulosin 0 Yes .4mg Take 0.4 Uni vers 0.4 mg 24 7-01 mg by ity of hr capsule 12:24: mouth [place] [address] daily. Medical Branch traMADOL 50 2021-0 Yes [...] mouth 2 it y of 12:24: (two) [place] 33 times Medical daily with Branch meals. gabapentin 2021-0 Yes 100mg Take 100 [place] 100 mg 7-01 mg by ity of capsule 12:24: mouth 2 [place] [address] (two) Medical times Branch daily. rosuvastati Yes 5mg Take 5 mg U nivers n 5 mg 7-01 by mouth ity of tablet 12:24: at [place] [address] bedtime. Medical Branch FUROSEMIDE 0 Yes 40mg Take 40 mg U nivers ORAL 7-01 by mouth 2 ity of 12:24: (two) [place] [address] times Medical daily. Branch ALPRAZOLAM Yes 1mg Take 1 mg [place] (XANAX XR 7-01 by mouth ity of ORAL) 12:24: daily. [place] [address] Medical Branch Ascorbic 0 Yes 1000mg Take 1,000 U nivers Acid 1,000 7-01 mg by ity of mg TbSR 12:24: mouth 2 [place] [address] (two) Medical times Branch daily. Cholecalcif Yes 400U Take 400 [place] joanne, 7-01 Units by ity of Vitamin D3, 12:24: mouth [place] 400 unit 33 daily. Medical capsule Branch cyanocobala Yes 5000ug Take 5,000 Univers min, 7-01 mcg by ity of vitamin 12:24: mouth [place] B-12, 5,000 33 daily. Medica l mcg TbDL Branch digoxin 125 Yes 125ug Take 125 U nivers mcg tablet 7-01 mcg by ity of 12:24: mouth [place] [address] daily. Medical Branch levothyroxi Yes 50ug Take 50 Uni vers ne 50 mcg 7-01 mcg by ity of tablet 12:24: mouth [place] [address] every Medical morning. Branch magnesium Yes 400mg Take 400 Uni vers oxide 400 7-01 mg by ity of mg tablet 12:24: mouth [place] [address] daily. Medical Branch pantoprazol Yes 40mg Take 40 mg Univers e 40 mg EC 7-01 by mouth ity o f tablet 12:24: daily. [place] [address] Medical Branch tamsulosin 0 Yes .4mg Take 0.4 Uni vers 0.4 mg 24 7-01 mg by ity of hr capsule 12:24: mouth [place] [address] daily. Medical Branch traMADOL 50 0 Yes 100mg Take 100 U nivers mg tablet 7-01 mg by ity of 12:24: mouth [place] [address] every 8 Medical (eight) Branch hours as needed for Pain (scale 4-6) or Pain (scale 7-10). May take 1 to 2 tablets Q8H as needed for pain glimepiride Yes 1mg Take 1 mg U nivers 1 mg tablet 11-22 by mouth 2 it y of 12:24: (two) [place] [address] times [facility] daily with Branch meals. gabapentin Yes 100mg Take 100 [place] 100 mg 11-22 mg by ity of capsule 12:24: mouth 2 [place] [address] (two) Medical times Branch daily. rosuvastati Yes 5mg Take 5 mg U nivers n 5 mg 11-22 by mouth ity of tablet 12:24: at [place] [address] bedtime. Medical Branch FUROSEMIDE Yes 40mg Take 40 mg U nivers ORAL 11-22 by mouth 2 ity of 12:24: (two) [place] [address] times [facility] daily. Branch rivaroxaban 2021- No 20mg Take 20 mg Univers (XARELTO) 11-22 by mouth. ity of 20 mg 10:55: 00:00 [place] tablet 32 :00 Medical Branch DIGOXIN, 2021- No 10mg Take 10 mg [place] BULK, MISC 11-22 by mouth ity of 10:55: 00:00 daily. [place] 32 :00 Medical Branch lisinopriL 2021- No 10mg Take 10 mg Univers 10 mg 11-22 by mouth ity of tablet 10:55: 00:00 daily. [place] 32 :00 Medical Branch metoprolol 2021- No 50mg Take 50 mg Univers tartrate 50 11-22 by mouth 2 i ty of mg tablet 10:55: 00:00 (two) [place] 32 :00 times [facility] daily. Branch atorvastati 2021- No 20mg Take 20 mg Univers n 20 mg 11-22 by mouth ity of tablet 10:55: 00:00 daily. [place] 32 :00 Medical Branch tamsulosin Yes .4mg 0.4 mg, Univ ers (FLOMAX) 11-22 Oral, QHS, ity o f capsule 0.4 02:00: First dose [place] mg 00 on [facility] 11/21/21 at [place] 2100, Until Discontinu ed, Routine lisinopriL 2021- No [id number] 10mg Take 2 Univers 5 mg tablet 11-22 tablets by i ty of 00:00: 04:59 mouth [place] 00 :00 daily for Medical 30 days. [place] lisinopriL 2021- No [id number] 10mg Take 2 Univers 5 mg tablet 11-22 tablets by i ty of 00:00: 04:59 mouth [place] 00 :00 daily for Medical 30 days. [place] lisinopriL 2021- No [id number] 10mg Take 2 Univers 5 mg tablet 11-22 tablets by i ty of 00:00: 04:59 mouth [place] 00 :00 daily for Medical 30 days. [place] cyanocobala 2021- No 1000ug 1,000 mcg, Univers min 11-21 07-07 Subcutaneo ity of (VITAMIN 16:15: 13:59 [place], DAILY, [place] B12) 00 :00 7 doses, Medical injection First dose Bran ch 1,000 mcg on [place] 11/21/21 at 1115, Last dose on Thu11/27/21 at 0900, Routine ergocalcife 2021- No [id number] 50,000 [facility] 11-[facility] 06-30 Units, ity of (vitamin 16:15: 17:24 Oral, [place] d2) 00 :00 QWEEKLY, 1 Medical (CALCIFEROL dose, [place] ) capsule First dose 50,000 on [facility] Units 11/21/21 at 1145, Routine bisacodyL Yes 10mg 10 mg, Univer s (DULCOLAX) 11-20 Rectal, ity of suppository 20:10: QDAILYPRN, [place] 10 mg 49 Starting Medical on Thu [place] 11/20/21 at 1510, Until Discontinu ed, Routine, Constipati on cholecalcif Yes 1000U 1,000 Univ ers joanne 11-20 Units, ity of (vitamin 14:00: Oral, [place] D3) tablet 00 DAILY, Medical 1,000 Units First dose Br anch on Thu11/20/21 at 0900, Until Discontinu ed, Routine ascorbic 2022-0 Yes 500mg 500 mg, Unive rs acid 11-20 Oral, ity of (vitamin C) 14:00: DAILY, [place] (VITAMIN C) 00 First dose Me dical tablet 500 on Thu mg 11/20/21 at 0900, Until Discontinu ed, Routine magnesium 0 Yes 400mg 400 mg, Univ ers oxide [...] on Thu11/28/21 at 1200, 1 mL lidocaine 0 Yes 15mL 15 mL, Univer s 2% [...] at 0600, Until Discontinu ed, Routine rosuvastati 0 Yes 10mg 10 mg, Univ ers n (CRESTOR) 11-19 Oral, QHS, it y of tablet 10 02:00: First dose [place] mg 00 on [facility] Medical 11/18/21 at Branch 2100, Until Discontinu [...] at 0900, Until Discontinu ed, Routine isosorbide 2022-0 Yes 15mg 15 mg, Unive rs mononitrate 11-18 Oral, ity of (IMDUR) 24 14:00: DAILY, [place] hr tablet 00 First dose Medi anabell 15 mg on [facility] Branch 11/18/21 at 0900, Until Discontinu ed, Routine glipiZIDE 2021- No 5mg 5 mg, Univer s (GLUCOTROL) 11-18 Oral, ity of tablet 5 mg 14:00: 18:19 DAILY, [place] 00 :49 First dose Medical on [facility] Branch 11/18/21 at 0900, Until Discontinu ed, Routine spironolact 2021- No 12.5mg 12.5 mg, Univers one 11-18 Oral, ity of (ALDACTONE) 14:00: 16:13 DAILY, [place] tablet 12.5 00 :25 First dose Me dical mg on [facility] Branch 11/18/21 at 0900, Until Discontinu ed, Routine furosemide No 40mg 40 mg, Univ ers (LASIX) 11-18 Oral, ity of tablet 40 14:00: 16:13 QAM+PM, [place] mg 00 :19 First dose Medical on [facility] 11/18/21 at 0900, Until Discontinu ed, Routine azithromyci No 500mg 500 mg, IV Univers n 11-18 Piggyback, ity of (ZITHROMAX) 13:30: 18:17 Q24H ABX, [place] 500 mg in 00 :58 First dose Medi anabell NaCl 0.9% on [facility] (NS) 250 mL 11/18/21 at VIAL-MATE [...] 00 First dose Medical (HumaLOG) + on [facility] Branch Fsbg 11/18/21 at Testing 0800, Until Discontinu ed, Routine apixaban 2022-0 Yes 5mg 5 mg, Univers (ELIQUIS) 11-18 Oral, BID, ity of tablet 5 mg 13:00: First dose [place] 00 on [facility] 11/18/21 at Branch 0800, Until Discontinu ed, Routine
Indicatio ns: Non-Valvul ar Atrial Fibrillati on gabapentin 0 Yes 100mg 100 mg, Uni vers (NEURONTIN) 11-18 Oral, TID, it y of capsule 100 13:00: First dose [place] mg 00 on [facility] 11/18/21 at Branch 0800, Until Discontinu ed, Routine metoprolol 0 Yes 50mg 50 mg, Unive rs succinate 11-18 Oral, BID, ity of XL (TOPROL 13:00: First dose [place] XL) tablet 00 on [facility] 50 mg 11/18/21 at Branch 0800, Until Discontinu ed, Routine magnesium 2021-0 202- No 400mg 400 mg, Uni vers oxide 11-18 06-28 Oral, BID, ity of (MAG-OX 13:00: 16:50 First dose [place] as 400) tablet 00 :44 on [facility] Medica l 400 mg 11/18/21 at Branch 0800, Until Discontinu ed, Routine ondansetron 0 Yes 4mg 4 mg, Slow Univers (ZOFRAN 11-18 IV Push, ity of (PF)) 12:31: Q6HPRN, [place] injection 4 32 Starting Medi anabell mg on [facility] 11/18/21 at 0731, Until Discontinu ed, Routine, Nausea and Vomiting (N/V) sennosides 0 Yes 8.6mg 8.6 mg, Uni vers (SENOKOT) 11-18 Oral, BID, ity of tablet 8.6 12:30: First dose [place] mg 00 on [facility] 11/18/21 at Branch 0730, Until Discontinu ed, Routine docusate 0 Yes 100mg 100 mg, Unive rs (COLACE) 11-18 Oral, BID, ity o f capsule 100 12:30: First dose [place] mg 00 on [facility] 11/18/21 at Branch 0730, Until Discontinu ed, Routine ALPRAZolam 2021-0 Yes .5mg 0.5 mg, Univ ers (XANAX) 11-18 Oral, ity of tablet 0.5 12:26: BIDPRN, [place] mg 05 Starting Medical on Thu11/18/21 at 0726, Until Discontinu ed, Routine, anxiety glucagon Yes 1mg 1 mg, Univers (GLUCAGEN 11-18 Intramuscu ity of DIAGNOSTIC 12:24: lar, PRN, [place] KIT) 14 Starting Medical injection 1 on Thu [facility] 11/18/21 at 0724, Until Discontinu ed, JOCELYN, [...] as mg 00 :00 dose, On Medical [facility] 11/18/21 at 0645, JOCELYN cefTRIAXone No 1000mg 1,000 mg, Univers (ROCEPHIN) 11-18 IV ity of 1,000 mg in 11:30: [facility]:07 [facility] [place] NaCl 0.9% 00 :00 ONCE, 1 Medical (NS) 50 mL dose, On Bran h MINI-BAG Thu11/18/21 at 0630, Administer over 30 Minutes, 50 mL
Reas on for Anti-Infec tive: Empiric Therapy for Suspected Infection< br>Empiric Therapy Site: Respirator y
Durat ion of therapy: 72 hours proMETHazin No 12.5mg 12.5 mg, Univers e 4-20 -20 IV ity of (PHENERGAN) 13:45: 12:43 [place], [place] 12.5 mg in 00 :00 ONCE, 1 Medica l NaCl 0.9% dose, On Branch (NS) 50 mL Wed IV 09/11/21 at piggyback 0845, JOCELYN iopamidol 2021-2021- No [id number] 120mL 120 mL, Univers (ISOVUE 09-11 Intravenou [...] No 4mg 4 mg, Slow Univers (ZOFRAN 09-1120 IV Push, ity of (PF)) 11:30: 10:57 ONCE, 1 [place] injection 4 00 :00 dose, On Medi anabell mg Wed Branch 09/11/21 at 0630, JOCELYN ondansetron 2021- Yes [id number] 4mg Take 1 Univers 4 mg 4-20 tablet by ity of disintegrat 00:00: mouth [place] ing tablet 00 every 8 Medica l (eight) Branch hours as needed for Nausea and Vomiting (N/V). ondansetron 2021-0 2021- No [id number] 4mg Take 1 Univers 4 mg 4-20 07-01 tablet by ity of disintegrat 00:00: 00:00 mouth [place] ing tablet 00 :00 every 8 Medica l (eight) Branch hours as needed for Nausea and Vomiting (N/V). ondansetron 2021-0 2021- No 4mg 4 mg, Slow Univers (ZOFRAN - 03-03 IV Push, ity of (PF)) 22:45: 21:44 ONCE, 1 [place] injection 4 00 :00 dose, On Medi anabell mg [facility] 07/25/21 Branch at 1645, JOCELYN NaCl 0.9% 2021- No 1000mL at 999 [...] at 2215, JOCELYN iopamidol 0 2021- No [id number] 100mL 100 mL, Univers (ISOVUE 07-13 Intravenou [...] 07/12/21 at 2030, JOCELYN ondansetron 2021-0 Yes [id number] 4mg Take 1 Univers (ZOFRAN) 4 2-18 tablet by ity of mg tablet 00:00: mouth [place] 00 every 8 Medical (eight) Branch hours as needed for Nausea and Vomiting (N/V). ondansetron 2022-0 Yes [id number] 4mg Take 1 Univers (ZOFRAN) 4 2-18 tablet by ity of mg tablet 00:00: mouth [place] 00 every 8 Medical (eight) Branch hours as needed for Nausea and Vomiting (N/V). ondansetron 2022-0 Yes [id number] 4mg Take 1 Univers (ZOFRAN) 4 2-18 tablet by ity of mg tablet 00:00: mouth [place] 00 every 8 Medical (eight) Branch hours as needed for Nausea and Vomiting (N/V). ondansetron 2021- No [id number] 4mg Take 1 Univers (ZOFRAN) 4 2-18 - tablet by ity of mg tablet 00:00: 00:00 mouth [place] 00 :00 every 8 Medical (eight) Branch hours as needed for Nausea and Vomiting (N/V). aspirin 81 2020-05- No [id number] 81mg Take 1 Univers mg chewable 0-06 11-06 tablet by it y of tablet 00:00: 04:59 mouth [place] 00 :00 daily for Medical 30 days. Branch furosemide 2020-05- No [id number] 60mg Take 3 Univers 20 mg 0-06 11-06 tablets by ity of tablet 00:00: 04:59 mouth [place] 00 :00 every Medical morning Branch and evening for 30 days. aspirin 81 2020-05- No [id number] 81mg Take 1 Univers mg chewable 0-06 11-06 tablet by it y of tablet 00:00: 04:59 mouth [place] 00 :00 daily for Medical 30 days. Branch furosemide 2020-05- No [id number] 60mg Take 3 Univers 20 mg 0-06 [...] 0-05 mcg by ity of 20:20: mouth [place] 16 daily. Medical Branch levothyroxi 2020-05 Yes 50ug Take 50 Uni vers ne 50 mcg 0-05 mcg by ity of tablet 20:20: mouth [place] 16 every Medical morning. Branch magnesium 2020-05 Yes 400mg Take 400 Uni vers oxide 400 0-05 mg by ity of mg tablet 20:20: mouth [place] [address] daily. Medical Branch pantoprazol 2020-05 Yes 40mg Take 40 mg Univers e 40 mg EC 0-05 by mouth ity o f tablet 20:20: daily. [place] [address] Medical Branch tamsulosin 2020-05 Yes .4mg Take 0.4 Uni vers 0.4 mg 24 0-05 mg by ity of hr capsule 20:20: mouth [place] [address] daily. Medical Branch traMADOL 50 2020-05 Yes 100mg Take 100 U nivers mg tablet 0-05 mg by ity of 20:20: mouth [place] 16 every 8 Medical (eight) Branch hours as needed for Pain (scale 4-6) or Pain (scale 7-10). May take 1 to 2 tablets Q8H as needed for pain glimepiride 2020-05 Yes 1mg Take 1 mg U nivers 1 mg tablet 0-05 by mouth 2 it y of 20:20: (two) [place] [address] times [facility] daily with Branch meals. gabapentin 2020-05 Yes 100mg Take 100 [place] 100 mg 0-05 mg by ity of capsule 20:20: mouth 2 [place] [address] (two) Medical times Branch daily. rosuvastati 2020-05 Yes 5mg Take 5 mg U nivers n 5 mg 0-05 by mouth ity of tablet 20:20: at [place] [address] bedtime. Medical Branch ALPRAZOLAM 2020-05 Yes 1mg Take 1 mg [place] (XANAX XR 0-05 by mouth ity of ORAL) 20:20: every 8 [place] [address] (eight) Medical hours as Branch needed. Ascorbic 2020-05 Yes 1000mg Take 1,000 U nivers Acid 1,000 0-05 mg by ity of mg TbSR 20:20: mouth 2 [place] 16 (two) Medical times Branch daily. Cholecalcif [...] mouth ity o f tablet 20:20: daily. [place] [address] Medical Branch tamsulosin 2020-05 Yes .4mg Take [...] mouth 2 it y of 20:20: (two) [place] [address] times Medical daily with Branch meals. gabapentin 2020-05 Yes 100mg Take 100 [place] 100 mg 0-05 mg by ity of capsule 20:20: mouth 2 [place] 16 (two) Medical times Branch daily. rosuvastati 2020-05 Yes 5mg Take 5 mg U nivers n 5 mg 0-05 by mouth ity of tablet 20:20: at [place] bedtime. Medical Branch ALPRAZOLAM 2020-05 Yes 1mg [...] mouth ity o f tablet 20:20: daily. [place] [address] Medical Branch tamsulosin 2020-05 Yes .4mg Take [...] mouth ity o f tablet 20:20: daily. [place] 16 Medical Branch tamsulosin 2020-05 Yes .4mg Take 0.4 Uni vers 0.4 mg 24 0-05 mg by ity of hr capsule 20:20: mouth [place] 16 daily. Medical Branch traMADOL 50 2021-1 Yes 100mg Take 100 U nivers mg tablet 0-05 mg by ity of 20:20: mouth [place] 16 every 8 Medical (eight) Branch hours as needed for Pain (scale 4-6) or Pain (scale 7-10). May take 1 to 2 tablets Q8H as needed for pain glimepiride 2020-05 Yes 1mg Take 1 mg U nivers 1 mg tablet 0-05 by mouth 2 it y of 20:20: (two) [place] 16 times Medical daily with Branch meals. gabapentin 2020-05 Yes 100mg Take 100 [place] 100 mg 0-05 mg by ity of capsule 20:20: mouth 2 [place] 16 (two) Medical times [place] daily. rosuvastati 2020-05 Yes 5mg Take 5 mg U nivers n 5 mg 0-05 by mouth ity of tablet 20:20: at [place] [address] bedtime. Medical Branch lisinopril 2020-05- No 10mg Take 10 mg Univers 10 mg 0-05 10-05 by mouth ity of tablet 17:14: 00:00 daily. [place] 23 :00 Medical Branch furosemide 2020-05- No 60mg Take 60 mg Univers 40 mg 0-05 10-05 by mouth ity of tablet 17:14: 00:00 every [place] 23 :00 morning Medical and Branch evening. KCL 10 mEq 2020-05- No 10meq Take 10 [place] tablet 0-05 10-05 mEq by ity of 17:14: 00:00 mouth 2 [place] 23 :00 (two) Medical times [place] daily. isosorbide 2020-05- No 30mg Take 30 mg Univers mononitrate 0-05 10-05 by mouth ity of 30 mg 24 hr 17:14: 00:00 daily. [place] tablet 23 :00 Medical Branch furosemide 2020-05 Yes 60mg 60 mg, Unive rs (LASIX) 0-05 Oral, ity of tablet 60 14:00: QAM+PM, [place] mg 00 First dose Medical on [facility] 02/26/21 at 0900, Until Discontinu ed, Routine tamsulosin 2020-05 Yes .4mg 0.4 mg, Univ ers (FLOMAX) 0-05 Oral, ity of capsule 0.4 14:00: DAILY, [place] mg 00 First dose Medical on [facility] 02/26/21 at 0900, Until Discontinu ed, Routine sennosides- 2020-05 Yes 1{tbl} 1 tablet, [facility] docusate 0-05 Oral, ity of sodium 14:00: DAILY, [place] (SENOKOT-S) 00 First dose Me dical 8.6-50 mg on [facility] per tablet 02/26/21 at 1 tablet 0900, Until Discontinu ed, Routine polyethylen 2020-05 Yes 17g 17 g, Unive rs e glycol 0-05 Oral, ity of 3350 powder 14:00: DAILY, [place] 17 g 00 First dose Medical on [facility] 02/26/21 at 0900, Until Discontinu ed, Routine pantoprazol 2020-05 Yes 40mg 40 mg, Univ ers e 0-05 Oral, ity of (PROTONIX) 14:00: DAILY, [place] EC tablet 00 First dose Medi anabell 40 mg on [facility] 02/26/21 at 0900, Until Discontinu ed, Routine aspirin 2020-05 Yes 81mg 81 mg, Univers chewable 0-05 Oral, ity of tablet 81 14:00: DAILY, [place] mg 00 First dose Medical on [facility] 02/26/21 at 0900, Until Discontinu ed, Routine digoxin 2020-05 Yes 125ug [address] [facility] (LANOXIN) 0-05 Oral, ity of tablet 125 14:00: DAILY, [place] mcg 00 First dose Medical on [facility] 02/26/21 at 0900, Until Discontinu ed, Routine magnesium 2020-05 Yes 400mg 400 mg, Univ ers oxide 0-05 Oral, ity of (MAG-OX 14:00: DAILY, [place] 400) tablet 00 First dose Me dical 400 mg on [facility] 02/26/21 at 0900, Until Discontinu ed, Routine Sliding 2020-05 Yes Subcutaneo Univ ers Scale 0-05 us, AC, ity of Insulin-Reg 12:30: First dose [place] ular + Fsbg 00 on [facility] l Testing 02/26/21 at Branch 0730, Until Discontinu ed, Routine glucagon 2020-05 Yes 1mg 1 mg, Univers (GLUCAGEN 0-05 Intramuscu ity of DIAGNOSTIC 11:07: [place], PRN, [place] KIT) 13 Starting Medical injection 1 on [facility] Branch mg 02/26/21 at 0607, Until Discontinu ed, JOCELYN, Blood Glucose < or = 70 mg/dL and patient is unable to swallow or has mental changes. dextrose 50 2020-05 Yes 25mL 25 mL, Univ ers % in water 0-05 Slow IV ity of (D50W) 11:07: Push, PRN, [place] injection 13 Starting Medica l 25 mL on [facility] Branch 02/26/21 at 0607, Until Discontinu ed, JOCELYN, Blood Glucose < or = 70 mg/dL and patient is unable to swallow or has mental status changes. levothyroxi 2020-05 Yes 50ug 50 mcg, Uni vers ne 0-05 Oral, ity of (SYNTHROID) 11:00: QAM-0600, [place] tablet 50 00 First dose Medi anabell mcg on [facility] Branch 02/26/21 at 0600, Until Discontinu ed, Routine diltiazem 2020-05 Yes 10mg 10 mg, Univer s (CARDIZEM 0-05 Slow IV ity of IV) 10:56: Push, [place] injection 56 Q4HPRN, Medical 10 mg Starting Branch on [facility] 02/26/21 at 0556, Until Discontinu ed, Routine, For HR > 120
Fac ulty member approving Restricted medication : RICKY WEEKS calcium 2020-05 No 1g 1 g, IV Univer s gluconate 1 0-05 10-05 Infusion, it y of g in NaCl 08:30: 07:36 ONCE, 1 [place] 50 mL 00 :00 dose, On Medical (ISO-OSM) [facility] RTU IV 02/26/21 at infusion 1 0330, g Routine cyclobenzap 2020-05 No 10mg 10 mg, Uni vers rine 0-05 10-05 Oral, ity of (FLEXERIL) 07:30: 07:23 ONCE, 1 [place] tablet 10 00 :00 dose, On Medica l mg [facility] Branch 02/26/21 at 0230, Routine sodium 2020-05 No 15g 15 g, Univers polystyrene 0-05 10-05 Oral, ity of sulfonate 07:30: 07:02 ONCE, 1 [place] (KAYEXALATE 00 :00 dose, On [facility] ) 15 Thu Branch gram/60 mL 02/26/21 at suspension 0230, 15 g Routine dextrose 50 2020-05 No 50mL 50 mL, Uni vers % in water 0-05 10-05 Slow IV ity o f (D50W) 07:15: 07:18 Push, [place] injection 00 :00 ONCE, 1 Medical 50 mL dose, On Branch Thu02/26/21 at 0215, Routine insulin 2020-05- No 10U 10 Units, Univ ers regular 0-05 10-05 IV Push, ity of human 07:15: 07:19 ONCE, 1 [place] (HUMULIN R) 00 :00 dose, On [facility] injection [facility] 10 Units 02/26/21 at 0215, Routine melatonin 2020-05 Yes 6mg 6 mg, Univers (MELATIN) 0-05 Oral, ity of tablet 6 mg 03:16: QHSPRN, [place] 26 Starting Medical on [facility] 02/25/21 at 2216, Until Discontinu ed, Routine, Insomnia rosuvastati 2020-05 Yes 5mg 5 mg, Unive rs n (CRESTOR) 0-05 Oral, QHS, it y of tablet 5 mg 02:00: First dose [place] 00 on [facility] 02/25/21 at Branch 2100, Until Discontinu ed, Routine gabapentin 2020-05 Yes 100mg 100 mg, Uni vers (NEURONTIN) 0-05 Oral, BID, it y of capsule 100 01:00: First dose [place] mg 00 on [facility] 02/25/21 at Branch 1999, Until Discontinu ed, Routine metoprolol 2020-05 Yes 50mg 50 mg, Unive rs succinate 0-05 Oral, BID, ity of XL (TOPROL 01:00: First dose [place] XL) tablet 00 on [facility] 50 mg 02/25/21 at Branch 1999, Until Discontinu ed, Routine apixaban 2020-05 Yes 5mg 5 mg, Univers (ELIQUIS) 0-05 Oral, BID, ity of tablet 5 mg 01:00: First dose [place] 00 on [facility] 02/25/21 at Branch 1999, Until Discontinu ed, Routine furosemide 2020-05 No 40mg 40 mg, Univ ers (LASIX) 0-05 10-05 Slow IV ity of injection 01:00: 11:03 Push, [place] 40 mg 00 :04 Q12H, Medical First dose Branch on Thu02/25/21 at 2000, Until Discontinu ed, Routine isosorbide 2020-05- No [id number] 30mg Take 1 Univers mononitrate 0-05 11-05 tablet by it y of 30 mg 24 hr 00:00: 04:59 mouth [place] tablet 00 :00 daily for Medical 30 days. Branch KCL 10 mEq 2020-05- No [id number] 10meq Take 1 Univers tablet 0-05 11-05 tablet by ity of 00:00: 04:59 mouth [place] 00 :00 daily for Medical 30 days. Branch melatonin 3 2020-05 No [id number] 6mg Take 2 Univers mg tablet 0-05 11-05 tablets by ity of 00:00: 04:59 mouth at [place] 00 :00 bedtime as Medical needed for Branch Insomnia for up to 30 days. metoprolol 2020-05- No [id number] 50mg Take 1 Univers succinate 0-05 11-05 tablet by ity of XL 50 mg 24 00:00: 04:59 mouth 2 [place] hr tablet 00 :00 (two) Medical times [place] daily for 30 days. spironolact 2020-05- No [id number] 25mg Take 1 Univers one 25 mg 0-05 11-05 tablet by ity of tablet 00:00: 04:59 mouth [place] 00 :00 daily for Medical 30 days. Branch isosorbide 2020-05- No [id number] 30mg Take 1 Univers mononitrate 0-05 11-05 tablet by it y of 30 mg 24 hr 00:00: 04:59 mouth [place] tablet 00 :00 daily for Medical 30 days. Branch KCL 10 mEq 2020-05- No [id number] 10meq Take 1 Univers tablet 0-05 11-05 tablet by ity of 00:00: 04:59 mouth [place] 00 :00 daily for Medical 30 days. Branch melatonin 3 2020-05- No [id number] 6mg Take 2 Univers mg tablet 0-05 11-05 tablets by ity of 00:00: 04:59 mouth at [place] 00 :00 bedtime as Medical needed for [place] Insomnia for up to 30 days. metoprolol 2020-05- No [id number] 50mg Take 1 Univers succinate 0-05 -05 tablet by ity of XL 50 mg 24 00:00: 04:59 mouth 2 [place] hr tablet 00 :00 (two) Medical times [place] daily for 30 days. spironolact 2020-05- No [id number] 25mg Take 1 Univers one 25 mg 0-05 -05 tablet by ity of tablet 00:00: 04:59 mouth [place] 00 :00 daily for Medical 30 days. Branch traMADoL 2020-05- No 50mg 50 mg, Univer s (ULTRAM) 0-04 10- Oral, ONCE ity of tablet 50 21:45: 20:37 NOW, 1 [place] mg 00 :00 dose, On Medical [facility] 02/25/21 at 1645, Routine ondansetron 2020-05 Yes 4mg 4 mg, Slow Univers (ZOFRAN 0-04 IV Push, ity of (PF)) 21:37: Q6HPRN, [place] injection 4 10 Starting Medi anabell mg on [facility] 02/25/21 at 1637, Until Discontinu ed, Routine, Nausea and Vomiting (N/V) traMADoL 2020-05- No 50mg 50 mg, Univer s (ULTRAM) 0-04 10-06 Oral, ity of tablet 50 21:36: 21:35 Q8HPRN, [place] mg 55 :55 Starting Medical on Thu [place] 02/25/21 at 1636, Until Thu02/27/21 at 1635, Routine, Pain (scale 4-6) acetaminoph 2020-05 Yes 650mg 650 mg, [place] en 0-04 Oral, ity of (TYLENOL) 21:36: Q6HPRN, [place] tablet 650 51 Starting Medic al mg on [facility] 02/25/21 at 1636, Until Discontinu ed, Routine, Pain (scale 1-3) diltiazem 2020-05- No 60mg 60 mg, Unive rs (CARDIZEM) 0-04 10-04 Oral, ONCE it y of tablet 60 21:30: 20:37 NOW, 1 [place] mg 00 :00 dose, On Medical [facility] 02/25/21 at 1630, Routine diltiazem 2020-05- No 2.5mg/h 2.5-15 [place] (CARDIZEM 0-04 10-05 mg/hr ity of IV) 125 mg 20:03: 10:57 (2.5-15 [place] in D5W 05 :18 mL/hr), IV Medical infusion Infusion, Branch TITRATE, rate control, HR <100 is goal, Starting on [facility] 02/25/21 at 1503
In itiate infusion at [...] :00 dose, On Medica l 10 mg [facility] 02/25/21 at 1500, STAT
Fa culty member approving Restricted medication : MONICO MARIEE aspirin 81 2020-05- No 81mg Take 81 mg Univers mg chewable 0-04 10-04 by mouth ity of tablet 16:38: 00:00 daily. [place] 43 :00 [facility] Branch atorvastati 2020-05- No 20mg Take 20 mg Univers n 20 mg 0-04 10-04 by mouth ity of tablet 16:38: 00:00 at [place] 43 :00 bedtime. Medical Branch OMEGA-3 2020-05- [...] 1 [place] mg 00 :00 dose, On [facility] 02/17/21 at 1600, JOCELYN ALPRAZOLAM Yes 1mg [...] by mouth ity of tablet 01:21: daily. [place] [address] Medical Branch magnesium Yes 400mg Take 400 [...] mouth ity o f tablet 01:21: daily. [place] [address] Medical Branch tamsulosin 0 Yes .4mg Take 0.4 Uni vers 0.4 mg 24 2-06 mg by ity of hr capsule 01:21: mouth daily. Medical Branch traMADOL 50 0 Yes [...] mEq by ity of 01:21: mouth 2 [place] [address] (two) Medical times Branch daily. isosorbide 0 Yes 30mg Take 30 mg U nivers mononitrate 2-06 by mouth ity of 30 mg 24 hr 01:21: daily. [place] tablet [facility] Branch glimepiride Yes 1mg Take 1 mg U nivers 1 mg tablet 2-06 by mouth 2 it y of 01:21: (two) [place] [address] times [facility] daily with Branch meals. gabapentin 0 Yes 100mg Take 100 [place] 100 mg 2-06 mg by ity of capsule 01:21: mouth 2 (two) Medical times [place] daily. ALPRAZOLAM 0 Yes 1mg Take 1 mg [place] (XANAX XR 2-06 by mouth ity of ORAL) 01:21: every 8 [place] [address] (eight) Medical hours as Branch needed. Ascorbic 2020-0 Yes 1000mg Take 1,000 U nivers Acid 1,000 2-06 mg by ity of mg TbSR 01:21: mouth 2 [place] [address] (two) Medical times Branch daily. aspirin 81 2020-0 Yes 81mg Take 81 mg U nivers mg chewable 2-06 by mouth ity of tablet 01:21: daily. [place] [address] Medical Branch atorvastati 2020-0 Yes 20mg Take 20 mg Univers n 20 mg 2-06 by mouth ity of tablet 01:21: at [place] [address] bedtime. Medical Branch Cholecalcif Yes 400U Take [...] by mouth ity of tablet 01:21: daily. [place] [address] Medical Branch magnesium Yes 400mg Take 400 [...] mouth 2 it y of 01:21: (two) [place] times Medical daily with Branch meals. gabapentin Yes 100mg Take 100 [place] 100 mg 2-06 mg by ity of capsule 01:21: mouth 2 [place] 07 (two) Medical times Branch daily. ALPRAZOLAM Yes 1mg Take 1 mg [place] (XANAX XR 2-06 by mouth ity of ORAL) 01:21: every 8 [place] [address] (eight) Medical hours as Branch needed. Ascorbic Yes 1000mg Take 1,000 U nivers Acid 1,000 2-06 mg by ity of mg TbSR 01:21: mouth 2 [place] 07 (two) Medical times Branch daily. aspirin 81 Yes 81mg Take 81 mg U nivers mg chewable 2-06 by mouth ity of tablet 01:21: daily. [place] [address] Medical Branch atorvastati Yes 20mg Take 20 mg Univers n 20 mg 2-06 by mouth ity of tablet 01:21: at [place] [address] bedtime. Medical Branch Cholecalcif Yes 400U Take [...] [place] 07 every Medical morning. Branch lisinopril 2021-0 Yes 10mg Take 10 mg U nivers 10 mg 2-06 by mouth ity of tablet 01:21: daily. Medical Branch magnesium 0 Yes 400mg Take 400 Uni vers oxide 400 2-06 mg by ity of mg tablet 01:21: mouth daily. Medical Branch OMEGA-3 0 Yes 1000mg [...] 2 (two) Medical times Branch daily. isosorbide 0 [...] 2 (two) Medical times Branch daily. spironolact 0 Yes [id number] 25mg Take 1 Univers one 25 mg 2-06 tablet by ity o f tablet 00:00: mouth [place] 00 daily. Medical Branch spironolact Yes [id number] 25mg Take 1 Univers one 25 mg 2-06 tablet by ity o f tablet 00:00: mouth [place] 00 daily. Medical Branch spironolact Yes [id number] 25mg Take 1 Univers one 25 mg 2-06 tablet by ity o f tablet 00:00: mouth [place] 00 daily. Medical Branch spironolact Yes [id number] 25mg Take 1 Univers one 25 mg 2-06 tablet by ity o f tablet 00:00: mouth [place] 00 daily. Medical Branch spironolact 2020- No [id number] 25mg Take 1 Univers one 25 mg [...] mouth ity of ORAL) 19:21: every 8 [place] [address] (eight) Medical hours as Branch needed. Ascorbic Yes 1000mg Take 1,000 U nivers Acid 1,000 2-05 mg by ity of mg TbSR 19:21: mouth 2 07 (two) Medical times Branch daily. aspirin 81 0 Yes 81mg Take 81 mg U nivers mg chewable 2-05 by mouth ity of tablet 19:21: daily. [place] [address] Medical Branch atorvastati Yes 20mg Take 20 mg Univers n 20 mg 2-05 by mouth ity of tablet 19:21: at [place] [address] bedtime. Medical Branch Cholecalcif Yes 400U Take [...] 2-05 mcg by ity of 19:21: mouth daily. Medical Branch levothyroxi Yes 50ug [...] 19:21: mouth 2 [place] OIL (OMEGA 07 [...] mEq by ity of 19:21: mouth 2 07 (two) Medical times Branch daily. isosorbide Yes 30mg Take 30 mg U nivers mononitrate 2-05 by mouth ity of 30 mg 24 hr 19:21: daily. [place] tablet Medical Branch glimepiride Yes 1mg Take 1 mg U nivers 1 mg tablet 2-05 by mouth 2 it y of 19:21: (two) [place] times [facility] daily with Branch meals. gabapentin Yes 100mg Take 100 [place] 100 mg 2-05 mg by ity of capsule 19:21: mouth 2 [place] (two) Medical times Branch daily. insulin Yes .2U/kg/ 18 Units Uni vers glargine 2-05 d (rounded ity of (LANTUS 03:00: from 17.96 [place] U-100) 00 Units = Medical injection 0.2 Branch 18 Units Units/kg/d ay ?89.8 kg), Subcutaneo us, QHS, First dose on [facility] 06/28/20 at 2100, Until Discontinu ed, Routine atorvastati Yes 20mg 20 mg, Univ ers n (LIPITOR) 2-05 Oral, QHS, it y of tablet 20 03:00: First dose [place] mg 00 on [facility] 06/28/20 at Branch 2100, Until Discontinu ed, Routine metoprolol Yes [id number] 50mg Take 1 Univers succinate 2-05 tablet by ity o f XL 50 mg 24 00:00: mouth 2 [place] hr tablet 00 (two) Medical times Branch daily. metoprolol Yes [id number] 50mg Take 1 Univers succinate 2-05 tablet by ity o f XL 50 mg 24 00:00: mouth 2 [place] hr tablet 00 (two) Medical times Branch daily. metoprolol 0 Yes [id number] 50mg Take 1 Univers succinate 2-05 tablet by ity o f XL 50 mg 24 00:00: mouth 2 [place] hr tablet 00 (two) Medical times Branch daily. metoprolol 0 Yes [id number] 50mg Take 1 Univers succinate 2-05 tablet by ity o f XL 50 mg 24 00:00: mouth 2 [place] hr tablet 00 (two) Medical times Branch daily. metoprolol 2020- No [id number] 50mg Take 1 Univers succinate 2-05 10-05 tablet by ity of XL 50 mg 24 00:00: 00:00 mouth 2 [place] hr tablet 00 :00 (two) Medical times [place] daily. glucagon Yes 1mg 1 mg, Univers (GLUCAGEN 04 Intramuscu ity of DIAGNOSTIC 22:45: [place], PRN, [place] KIT) 15 Starting Medical injection 1 [place] 06/28/20 Br anch mg at 1645, Until Discontinu ed, JOCELYN, Blood Glucose < or = 70 mg/dL and patient is unable to swallow or has mental changes. dextrose 50 Yes 25mL 25 mL, Univ ers % in water 04 Slow IV ity of (D50W) 22:45: Push, PRN, [place] injection 15 Starting Medica l 25 mL [facility] 06/28/20 Branch at 1645, Until Discontinu ed, JOCELYN, Blood Glucose < or = 70 mg/dL and patient is unable to swallow or has mental status changes. cyanocobala 2020- No 1000ug 1,000 mcg, Univers min 06-28-04 Intramuscu ity of (VITAMIN 21:31: 22:58 [place]CE[place] B12[place] 00 :00 1 dose, Medical injection [facility] 06/28/20 Bran ch 1,000 mcg at 1545, Routine morpHINE 2020- No 2mg 2 mg, Slow [place] injection 2 06-28 02-04 IV Push, ity of mg 20:45: 19:54 ONCE NOW, [place] 00 :00 1 dose, Medical [facility] 06/28/20 Branch at 1445, Routine apixaban Yes 5mg 5 mg, Univers (ELIQUIS) 204 Oral, BID, ity of tablet 5 mg 19:54: First dose [place] 13 on [facility] 06/28/20 at Branch 2000, Until Discontinu ed, [...] s mg 00 First dose Medical on [facility] Branch 06/28/20 at 0900, Until Discontinu ed, Routine Polyethylen Yes 17g 17 g, Unive rs e Glycol 2-04 Oral, ity of 3350 15:00: QTUE/THURS [place] (MIRALAX) 00 /SAT, Medical powder 17 g First dose Br anch on [facility] 06/28/20 at 0900, Until Discontinu ed, Routine pantoprazol Yes 40mg 40 mg, Univ ers e 2-04 Oral, ity of (PROTONIX) 15:00: DAILY, [place] EC tablet 00 First dose Medi anabell 40 mg on [facility] Branch 06/28/20 at 0900, Until Discontinu ed, Routine magnesium Yes 400mg 400 mg, Univ ers oxide 2-04 Oral, ity of (MAG-OX 15:00: DAILY, [place] 400) tablet 00 First dose Me dical 400 mg on [facility] Branch 06/28/20 at 0900, Until Discontinu ed, Routine isosorbide Yes 30mg 30 mg, Unive rs mononitrate 2-04 Oral, ity of (IMDUR) 24 15:00: DAILY, [place] hr tablet 00 First dose Medi anabell 30 mg on [facility] Branch 06/28/20 at 0900, Until Discontinu ed, Routine digoxin Yes 125ug 125 mcg, Unive rs (LANOXIN) 2-04 Oral, ity of tablet 125 15:00: DAILY, [place] mcg 00 First dose Medical on [facility] Branch 06/28/20 at 0900, Until Discontinu ed, Routine Sliding Yes Subcutaneo Univ ers Scale 2-04 us, TID ity of Insulin - 14:00: MEALS+HS, [place] Lispro 00 First dose Medical (HumaLOG) + on [facility] 06/28/20 at Testing 0800, Until Discontinu ed, Routine sennosides- Yes 1{tbl} 1 tablet, Univers docusate 2-04 Oral, BID, ity o f sodium 14:00: First dose [place] (SENOKOT-S) 00 on [facility] 8.6-50 mg 06/28/[address] [facility] h per tablet 0800, 1 tablet Until Discontinu ed, Routine KCL 2020-0 Yes 10meq 10 mEq, Univers (KLOR-CON 2-04 Oral, BID, ity of M10) tablet 14:00: First dose [place] 10 mEq 00 on [facility] 06/28/20 at Branch 0800, Until Discontinu ed, Routine gabapentin 2020-0 Yes 100mg 100 mg, Uni vers (NEURONTIN) 2-04 Oral, BID, it y of capsule 100 14:00: First dose [place] mg 00 on [facility] 06/28/20 at Branch 0800, Until Discontinu ed, Routine glipiZIDE 0 Yes 2.5mg 2.5 mg, Univ ers (GLUCOTROL) 2-04 Oral, ity of tablet 2.5 13:30: BIDAC, [place] mg 00 First dose Medical on [facility] 06/28/20 at 0730, Until Discontinu ed, Routine levothyroxi Yes 50ug 50 mcg, Uni vers ne 2-04 Oral, ity of (SYNTHROID) 12:00: QAM-0600, [place] tablet 50 00 First dose Medi anabell mcg on [facility] 06/28/20 at 0600, Until Discontinu ed, Routine furosemide 2020- No 80mg 80 mg, IV U nivers (LASIX) 06-28 02-05 Push, Q8H, ity o f injection 12:00: 17:27 First dose [place] 80 mg 00 :59 on [facility] 06/28/20 at Branch 0600, Until Discontinu ed, Routine spironolact 0 Yes 25mg 25 mg, Univ ers one 2-04 Oral, ity of (ALDACTONE) 09:00: DAILY, [place] tablet 25 00 First dose Medi anabell mg on [facility] 06/28/20 at 0300, Until Discontinu ed, Routine metoprolol 0 Yes 50mg 50 mg, Unive rs succinate 2-04 Oral, BID, ity of XL (TOPROL 09:00: First dose [place] XL) tablet 00 on [facility] 50 mg 06/28/20 at Branch 0300, Until Discontinu ed, Routine ondansetron 2021-0 Yes 4mg 4 mg, Slow Univers (ZOFRAN 2-04 IV Push, ity of (PF)) 08:53: Q6HPRN, [place] injection 4 48 Starting Medi anabell mg [facility] 06/28/20 Branch at 0253, Until Discontinu ed, Routine, Nausea and Vomiting (N/V) melatonin 2020- Yes 3mg 3 mg, Univers (MELATIN) 2-04 Oral, QHS, ity of tablet 3 mg 08:45: First dose [place] 00 on [facility] 06/28/20 at Branch 0245, Until Discontinu ed, Routine aspirin Yes 81mg 81 mg, Univers chewable 2-04 Oral, QAM ity of tablet 81 08:45: WITH [facility] 00 BREAKFAST, Medical First dose Branch on [facility] 06/28/20 at 0245, Until Discontinu ed, Routine TRAMADOL 2020- No Take by Unive rs HCL 06-28- mouth. ity of (TRAMADOL 08:39: 00:00 [place] ORAL) 21 :00 Medical Branch clopidogrel 2020- No 75mg Take 75 mg Univers (PLAVIX) 75 06-28- by mouth ity of mg tablet 08:39: 00:00 daily. [place] 21 :00 Medical Branch fluocinonid 2020- No Apply to U nivers e 0.05 % 06-28 area(s) 2 ity o f solution 08:39: 00:00 (two) [place] 21 :00 times Medical daily. Branch lubiproston 2020- No 8ug Take 8 mcg Univers e (AMITIZA) 06-28 by mouth 2 i ty of 8 mcg 08:39: 00:00 (two) [place] capsule 21 :00 times Medical daily with [place] meals. Psyllium 2020- No 1{packa Take 1 Uni vers Husk-Sucros 06-28 ge} Package by i ty of e (DAILY 08:39: 00:00 mouth. [place] FIBER, 21 :00 Medical PSYLLIUM-KIM Branch CROSE,) [...] :00 ONCE, 1 Medical 25 mcg dose, Wed Branch 06/27/20 at 2044, STAT levoFLOXaci 2020- [...] Comments) NaCl 0.9% No 500mL at 999 Univ ers (NS) bolus 06-28-04 mL/hr, 500 it y of infusion 02:00: [...] by mouth ity of tablet 15:34: daily. [place] 30 Medical Branch atorvastati Yes 20mg Take [...] mouth ity of mg tablet 15:34: daily. [place] [address] Medical Branch cyanocobala Yes 5000ug Take 5,000 [...] by mouth ity of tablet 15:34: daily. [place] [address] Medical Branch lubiproston Yes 8ug Take 8 mcg Univers e (AMITIZA) 5-16 by mouth 2 it y of 8 mcg 15:34: (two) [place] capsule 30 times Medical daily with Branch meals. magnesium 0 Yes 400mg Take 400 Uni vers oxide 400 5-16 mg by ity of mg tablet 15:34: mouth [place] 30 daily. Medical Branch OMEGA-3 2017-0 Yes 1000mg Take 1,000 [place] FATTY 5-16 mg by ity of ACIDS/FISH 15:34: mouth 2 [place] OIL (OMEGA 30 (two) Medical 3 FISH OIL times Branch ORAL) daily. pantoprazol 0 Yes 40mg Take 40 mg Univers e 40 mg EC 5-16 by mouth ity o f tablet 15:34: daily. [place] [address] Medical Branch Psyllium 2018-0 Yes 1{packa Take 1 Univ ers Husk-Sucros 5-16 ge} Package by it y of e (DAILY 15:34: mouth. [place] FIBER, 30 Medical PSYLLIUM-KIM Branch CROSE,) 3.4 [...] Medical and Branch evening. KCL 10 mEq 2017-0 Yes 10meq Take 10 Uni vers tablet 5-16 mEq by ity of 15:34: mouth 2 [place] 30 (two) Medical times Branch daily. TRAMADOL 2017-0 Yes Take by Univer s HCL 5-16 mouth. ity of (TRAMADOL 15:34: [place] ORAL) 30 Medical Branch ALPRAZOLAM 0 Yes 1mg Take 1 mg [place] (XANAX XR 5-16 by mouth ity of ORAL) 15:34: daily. [address] Branch Ascorbic 2018-0 Yes 1000mg Take 1,000 U nivers Acid 1,000 5-16 mg by ity of mg TbSR 15:34: mouth 2 [place] 30 (two) Medical times Branch daily. aspirin 81 2018-0 Yes 81mg Take 81 mg U nivers mg chewable 5-16 by mouth ity of tablet 15:34: daily. [address] Branch atorvastati 2017-0 Yes 20mg Take 20 mg Univers n 20 mg 5-16 by mouth ity of tablet 15:34: at [place] 30 bedtime. Medical Branch Cholecalcif 2017-0 Yes 400U Take 400 [place] joanne, 5-16 Units by ity of Vitamin D3, 15:34: mouth [place] 400 unit 30 daily. Medical capsule Branch clopidogrel Yes 75mg Take 75 mg Univers (PLAVIX) 75 5-16 by mouth ity of mg tablet 15:34: daily. [place] [address] Medical Branch cyanocobala Yes 5000ug Take 5,000 [...] by mouth ity of tablet 15:34: daily. [address] Branch lubiproston Yes 8ug Take 8 mcg Univers e (AMITIZA) 5-16 by mouth 2 it y of 8 mcg 15:34: (two) [place] capsule 30 times Medical daily with Branch meals. magnesium Yes 400mg Take 400 Uni vers oxide 400 5-16 mg by ity of mg tablet 15:34: mouth [place] 30 daily. [facility] Branch OMEGA-3 Yes 1000mg Take 1,000 [place] FATTY 5-16 mg by ity of ACIDS/FISH 15:34: mouth 2 [place] OIL (OMEGA 30 (two) Medical 3 FISH OIL times Branch ORAL) daily. pantoprazol Yes 40mg Take 40 mg Univers e 40 mg EC 5-16 by mouth ity o f tablet 15:34: daily. [address] Psyllium Yes 1{packa Take 1 Univ ers Husk-Sucros 5-16 ge} Package by it y of e (DAILY 15:34: mouth. [place] FIBER, 30 Medical PSYLLIUM-KIM Branch CROSE,) 3.4 [...] by mouth ity of ORAL) 15:34: daily. [place] [address] Medical Branch Ascorbic 0 Yes 1000mg Take 1,000 U nivers Acid 1,000 5-16 mg by ity of mg TbSR 15:34: mouth 2 [place] 30 (two) Medical times Branch daily. aspirin 81 Yes 81mg Take 81 mg U nivers mg chewable 5-16 by mouth ity of tablet 15:34: daily. [place] 30 Medical Branch atorvastati 0 Yes 20mg [...] mouth ity of mg tablet 15:34: daily. [place] 30 Medical Branch cyanocobala 0 Yes 5000ug Take 5,000 Univers min, 5-16 mcg by ity of vitamin 15:34: mouth [place] B-12, 5,000 30 daily. Medica l mcg TbDL Branch digoxin 125 2018-0 Yes 125ug Take 125 U nivers mcg tablet 5-16 mcg by ity of 15:34: mouth [place] 30 daily. Medical Branch fluocinonid 2018-0 Yes Apply to [place] e 0.05 [...] by mouth ity of tablet 15:34: daily. [place] 30 Medical Branch lubiproston 0 Yes 8ug Take 8 mcg Univers e (AMITIZA) 5-16 by mouth 2 it y of 8 mcg 15:34: (two) [place] capsule 30 times Medical daily with Branch meals. magnesium 2017-0 Yes 400mg Take 400 Uni vers oxide [...] by mouth ity of ORAL) 15:34: daily. [place] [address] Medical Branch Ascorbic 20180 Yes 1000mg Take 1,000 U nivers Acid 1,000 5-16 mg by ity of mg TbSR 15:34: mouth 2 [place] 30 (two) Medical times Branch daily. aspirin 81 2018 Yes 81mg Take 81 mg U nivers mg chewable 5-16 by mouth ity of tablet 15:34: daily. [place] [address] Medical Branch atorvastati Yes 20mg Take 20 [...] mouth ity of mg tablet 15:34: daily. [place] [address] Medical Branch cyanocobala Yes 5000ug Take 5,000 [...] by mouth ity of tablet 15:34: daily. [place] [address] Medical Branch lubiproston 0 Yes 8ug Take [...] by mouth ity of tablet 15:34: every 30 morning Medical and Branch evening. KCL 10 mEq 2017-0 Yes 10meq Take 10 Uni vers tablet 5-16 mEq by ity of 15:34: mouth 2 30 (two) Medical times Branch daily. TRAMADOL 2017- Yes Take by Univer s HCL 5-16 mouth. ity of (TRAMADOL 15:34: [place] ORAL) 30 Medical Branch ALPRAZOLAM 2017-0 Yes 1mg Take 1 mg [place] (XANAX XR 5-16 by mouth ity of ORAL) 15:34: daily. 30 Medical Branch Ascorbic 2018-0 Yes 1000mg Take 1,000 U nivers Acid 1,000 5-16 mg by ity of mg TbSR 15:34: mouth 2 30 (two) Medical times Branch daily. benzonatate 2017 Yes 100mg Take 1 Uni vers 100 [...] 100mg Take 1 [place] 100 mg 07-02-04 capsule by ity of capsule 00:00: 00:00 mouth [place] 00 :00 every 8 Medical (eight) Branch hours as needed for Cough. metoprolol 2016-05- No 50mg Take 1 Univ ers tartrate 50 07-02 02-05 tablet by it y of mg tablet 00:00: 00:00 mouth 2 [place] 00 :00 (two) Medical times Branch daily. Polyethylen 2015-05 Yes 17g Take 1 Univ [...] Medical times Branch daily with meals. apixaban 2015-05- No 5mg Take 1 Univer s (ELIQUIS) 5 -06 02-20 tablet by it y of mg tablet [...] 3mg Take 1 Unive rs (MELATIN) 3 - 10-04 tablet by it y of mg tablet 00:00: 00:00 mouth at [place] 00 :00 bedtime. Medical Branch montelukast 2015-05- No 10mg Take 1 Uni vers (SINGULAIR) 2- 02-03 tablet by it y of 10 mg 00:00: 00:00 mouth at [place] tablet 00 :00 bedtime. Medical Branch Pantoprazol Pantoprazol No Pantoprazo e Sodium e Sodium le Sodium Rosuvastati Rosuvastati No Rosuvastat n Calcium n [...] Levothyrox ne Sodium ne Sodium ine Sodium Immunizations Ordered Filled Immunization Date Status Comments Sour e Immunization Name [facility] [place] [facility]21 Completed University of 00:00:00 [facility] Remdesivir 2021-11-21 Completed University of 00:00:00 [facility] Remdesivir 2021-11-21 Completed University of 00:00:00 [facility] Remdesivir 2021-11-21 Completed University of 00:00:00 [facility] Remdesivir 2021-11-21 Completed University of 00:00:00 [facility] Remdesivir 2021-11-21 Completed University of 00:00:00 [facility] Remdesivir 2021-11-21 Completed University of 00:00:00 [facility] Remdesivir 2021-11-20 Completed University of 00:00:00 [facility] Remdesivir 2021-11-20 Completed University of 00:00:00 [facility] Remdesivir 2021-11-20 Completed University of 00:00:00 [facility] Remdesivir 2021-11-20 Completed University of 00:00:00 [facility] Remdesivir 2021-11-20 Completed University of 00:00:00 [facility] Remdesivir 2021-11-20 Completed University of 00:00:00 [facility] Remdesivir 2021-11-20 Completed University of 00:00:00 [facility] Remdesivir 2021-11-19 Completed University of 00:00:00 [facility] Remdesivir 2021-11-19 Completed University of 00:00:00 [facility] Remdesivir 2021-11-19 Completed University of 00:00:00 [facility] Remdesivir 2021-11-19 Completed University of 00:00:00 [facility] Remdesivir 2021-11-19 Completed University of 00:00:00 [facility] Remdesivir 2021-11-19 Completed University of 00:00:00 [facility] Remdesivir 2021-11-19 Completed University of 00:00:00 [facility] Remdesivir 2021-11-18 Completed University of 00:00:00 [facility] Remdesivir 2021-11-18 Completed University of 00:00:00 [facility] Remdesivir 2021-11-18 Completed University of 00:00:00 [place] [facility] Remdesivir 2021-11-18 Completed University of 00:00:00 [facility] Remdesivir 2021-11-18 Completed University of 00:00:00 [facility] Remdesivir 2021-11-18 Completed University of 00:00:00 [facility] Remdesivir 2021-11-18 Completed University of 00:00:00 [facility] Vital Signs Vital Name Observation Time Observation Value Comments Source height 2022-05-27 13:00:00 70.5 [in_i] [facility] weight 2022-05-27 13:00:00 177 [lb_av] [facility] temperature 2022-05-27 13:00:00 97.9 [degF] [facility] bmi 2022-05-27 13:00:00 25.04 kg/m2 [facility] blood pressure 2022-05-27 13:00:00 102 mm[Hg] [facility] - systolic [facility] blood pressure 2022-05-27 13:00:00 60 mm[Hg] [facility] - diastolic [facility] Systolic blood 2022-02-11 20:28:00 127 mm[Hg] Univer sity of pressure [facility] Diastolic blood 2022-02-11 20:28:00 65 mm[Hg] Unive rsity of pressure [facility] Heart rate 2022-02-11 20:28:00 80 /min [facility] Body temperature 2022-02-11 20:28:00 36.56 Lynda Univ ersity [facility] [place] [facility] Respiratory rate 2022-02-11 20:28:00 18 /min [facility] ersity of [place] [facility] Oxygen saturation in 2022-02-11 20:28:00 91 /min University of Arterial blood by [place] [employer] anabell Pulse oximetry Branch Body height 2022-02-11 06:15:00 175.3 cm Universi ty of [place] [facility] Body weight 2022-02-11 06:15:00 77.973 kg Universi ty of [place] [facility] BMI 2022-02-11 06:15:00 25.39 kg/m2 Universi ty of [place] [facility] Systolic blood 2022-01-23 11:44:00 115 mm[Hg] Univer sity of pressure [place] [facility] Diastolic blood 2022-01-23 11:44:00 65 mm[Hg] Unive rsity of pressure [place] [facility] Heart rate 2022-01-23 11:44:00 60 /min Universi ty of [place] [facility] Respiratory rate 2022-01-23 11:44:00 20 /min Univ ersity of [place] [facility] Oxygen saturation in 2022-01-23 11:44:00 93 /min University of Arterial blood by [place] [employer] anabell Pulse oximetry Branch Body temperature 2022-01-23 10:06:00 36.39 Lynda Univ ersity of [place] [facility] Body height 2022-01-23 10:06:00 180.3 cm Universi ty of [place] [facility] Body weight 2022-01-23 10:06:00 83.915 kg Universi ty of [place] [facility] BMI 2022-01-23 10:06:00 25.80 kg/m2 Universi ty of [place] [facility] Heart rate 2022-01-06 12:45:00 73 /min Universi ty of [place] [facility] Oxygen saturation in 2022-01-06 12:45:00 96 /min University of Arterial blood by [facility] Pulse oximetry Branch Systolic blood 2022-01-06 12:00:00 137 mm[Hg] Univer sity of pressure [place] [facility] Diastolic blood 2022-01-06 12:00:00 78 mm[Hg] Unive rsity of pressure [place] [facility] Respiratory rate 2022-01-06 12:00:00 16 /min Univ ersity of [place] [facility] Body height 2022-01-06 10:49:00 180.3 cm Universi ty of [place] [facility] Body weight 2022-01-06 10:49:00 81.647 kg Universi ty of [place] [facility] BMI 2022-01-06 10:49:00 25.10 kg/m2 Universi ty of [place] [facility] Systolic blood 2021-12-18 02:00:00 121 mm[Hg] Univer sity of pressure [place] [facility] Diastolic blood 2021-12-18 02:00:00 65 mm[Hg] Unive rsity of pressure [place] [facility] Heart rate 2021-12-18 02:00:00 70 /min Universi ty of [place] [facility] Oxygen saturation in 2021-12-18 02:00:00 98 /min University of Arterial blood by [place] [employer] Pulse oximetry Branch Respiratory rate 2021-12-18 01:00:00 15 /min Univ ersity of [place] [facility] Body temperature 2021-12-17 22:57:00 36.56 Lynda Univ ersity of [place] [facility] Body weight 2021-12-17 22:57:00 84.823 kg Universi ty of [place] [facility] BMI 2021-12-17 22:57:00 26.08 kg/m2 Universi ty of [place] [facility] Systolic blood 2021-11-22 16:09:00 126 mm[Hg] Univer sity of pressure [place] [facility] Diastolic blood 2021-11-22 16:09:00 62 mm[Hg] Unive rsity of pressure [place] [facility] Heart rate 2021-11-22 16:09:00 49 /min Universi ty of [place] [facility] Body temperature 2021-11-22 16:09:00 35.56 Lynda Univ ersity of [place] [facility] Respiratory rate 2021-11-22 16:09:00 17 /min Univ ersity of [place] [facility] Oxygen saturation in 2021-11-22 16:09:00 93 /min University of Arterial blood by [employer] Pulse oximetry Branch Body weight 2021-11-22 08:00:00 84.959 kg Universi ty of [place] [facility] BMI 2021-11-22 08:00:00 26.12 kg/m2 Universi ty of [place] [facility] Body height 2021-11-18 13:30:00 180.3 cm Universi ty of [place] [facility] Systolic blood 2021-09-11 13:00:00 150 mm[Hg] Univer sity of pressure [place] [facility] Diastolic blood 2021-09-11 13:00:00 97 mm[Hg] Unive rsity of pressure [place] [facility] Heart rate 2021-09-11 13:00:00 73 /min Universi ty of [place] [facility] Respiratory rate 2021-09-11 13:00:00 14 /min Univ ersity of [place] [facility] Oxygen saturation in 2021-09-11 13:00:00 95 /min University of Arterial blood by [facility] Pulse oximetry Branch Body temperature 2021-09-11 10:14:03 36.33 Lynda Univ ersity of [place] [facility] Body height 2021-09-11 10:05:00 180.3 cm Universi ty of [place] [facility] Body weight 2021-09-11 10:05:00 84.823 kg Universi ty of [place] [facility] BMI 2021-09-11 10:05:00 26.08 kg/m2 Universi ty of [place] [facility] Systolic blood 2021-07-25 23:00:00 151 mm[Hg] Univer sity of pressure [place] [facility] Diastolic blood 2021-07-25 23:00:00 79 mm[Hg] Unive rsity of pressure [place] [facility] Heart rate 2021-07-25 23:00:00 64 /min Universi ty of [place] [facility] Respiratory rate 2021-07-25 23:00:00 16 /min Univ ersity of [place] [facility] Oxygen saturation in 2021-07-25 23:00:00 96 /min University of Arterial blood by [facility] Pulse oximetry Branch Body temperature 2021-07-25 21:21:00 36.94 Lynda Univ ersity of [place] [facility] Body weight 2021-07-25 21:21:00 85.73 [...] 93 /min University of Arterial blood by [place] [employer] [facility] Pulse oximetry Branch Body temperature 2021-07-13 01:30:00 36.44 Lynda Univ ersity of [place] [facility] Body height 2021-07-13 01:27:00 180.3 cm Universi ty of [place] [facility] Body weight 2021-07-13 01:27:00 85.73 kg Universi ty of [place] [facility] BMI 2021-07-13 01:27:00 26.36 kg/m2 Universi ty of [place] [facility] Systolic blood 2021-02-27 00:48:00 112 mm[Hg] Univer sity of pressure [place] [facility] Diastolic blood 2021-02-27 00:48:00 68 mm[Hg] Unive rsity of pressure [place] [facility] Heart rate 2021-02-27 00:48:00 82 /min Universi ty of [place] [facility] Body temperature 2021-02-27 00:48:00 36.06 Lynda Univ ersity of [place] [facility] Respiratory rate 2021-02-27 00:48:00 18 /min Univ ersity of [place] [facility] Oxygen saturation in 2021-02-27 00:48:00 92 /min University of Arterial blood by [place] [employer] [facility] Pulse oximetry Branch Body height 2021-02-25 21:32:00 177.8 cm Universi ty of [place] [facility] Body weight 2021-02-25 21:32:00 85.957 kg Universi ty [facility] [place] [facility] BMI 2021-02-25 21:32:00 27.19 kg/m2 Universi ty [facility] [place] [facility] Systolic blood 2021-02-17 23:00:00 126 mm[Hg] Univer sity of pressure [place] [facility] Diastolic blood 2021-02-17 23:00:00 67 mm[Hg] Unive rsity of pressure [place] [facility] Heart rate 2021-02-17 23:00:00 67 /min Universi ty of [place] [facility] Respiratory rate 2021-02-17 23:00:00 22 /min Univ ersity of [place] [facility] Oxygen saturation in 2021-02-17 23:00:00 96 /min University of Arterial blood by [place] [employer] [facility] Pulse oximetry Branch Body temperature 2021-02-17 19:20:00 36.28 Lynda Univ ersity of [place] [facility] Body weight 2021-02-17 19:20:00 93.895 kg Universi ty of [place] [facility] BMI 2021-02-17 19:20:00 29.70 kg/m2 Universi ty [facility] [place] [facility] Systolic blood 2020-07-29 21:00:00 112 mm[Hg] Univer sity of pressure [place] [facility] Diastolic blood 2020-07-29 21:00:00 57 mm[Hg] Unive rsity of pressure [place] [facility] Heart rate 2020-07-29 21:00:00 66 /min Universi ty of [place] [facility] Respiratory rate 2020-07-29 21:00:00 20 /min Univ ersity of [place] [facility] Oxygen saturation in 2020-07-29 21:00:00 100 /min University of Arterial blood by [place] [employer] Pulse oximetry Branch Body temperature 2020-07-29 19:28:00 35.83 Lynda Univ ersity of [place] [facility] Body weight 2020-07-29 19:28:00 93.895 kg Universi ty of [place] [facility] BMI 2020-07-29 19:28:00 29.70 kg/m2 [facility]i ty [facility] [place] [facility] Systolic blood 2020-06-29 22:19:00 101 mm[Hg] Univer sity of pressure [place] [facility] Diastolic blood 2020-06-29 22:19:00 60 mm[Hg] Unive rsity of pressure [place] [facility] Heart rate 2020-06-29 22:06:00 92 /min Universi ty of [place] [facility] Body temperature 2020-06-29 22:06:00 37.06 Lynda Univ ersity of [place] [facility] Respiratory rate 2020-06-29 22:06:00 18 /min Univ ersity of [place] [facility] Oxygen saturation in 2020-06-29 22:06:00 98 /min University of Arterial blood by [place] [employer] [facility] Pulse oximetry Branch Body height 2020-06-28 09:00:00 177.8 cm Universi ty [facility] [place] [facility] Body weight 2020-06-28 09:00:00 94.167 kg Universi ty [facility] [place] [facility] BMI 2020-06-28 09:00:00 29.79 kg/m2 [facility]i ty [facility] [place] [facility] Systolic blood 2019-09-01 15:06:00 161 mm[Hg] Univer sity of pressure [place] [facility] Diastolic blood 2019-09-01 15:06:00 82 mm[Hg] Unive rsity of pressure [facility] Heart rate 2019-09-01 15:06:00 80 /min [facility] Respiratory rate 2019-09-01 15:06:00 20 /min [facility] Body height 2019-09-01 15:06:[address] [facility] Body weight 2019-09-01 15:06:[address] [facility] BMI 2019-09-01 15:06:00 31.69 kg/m2 [facility] Oxygen saturation in 2019-09-01 15:06:00 98 /min [facility] [facility] Arterial blood by [facility] Pulse oximetry [place] Procedures Procedure Date / Time Performing Clinician Source Performed DIGOXIN 2022-02-11 19:15:00 [facility] 2022-02-11 16:49:00 [facility] POCT GLUCOSE 2022-02-11 16:40:00 [facility] (AUTOMATED) [facility] HB ECG ROUTINE & RHYTHM 2022-02-11 15:07:19 Macarena Hernandez [facility] STRIP [facility] POCT GLUCOSE 2022-02-11 13:11:00 [facility] (AUTOMATED) [facility] MAGNESIUM 2022-02-11 10:08:00 [facility] TROPONIN I 2022-02-11 10:08:00 Marck Hollingsworth [facility] BASIC METABOLIC PANEL 2022-02-11 10:08:00 Lexii Solano [facility] (NA, K, CL, CO2, Medical Branch GLUCOSE, BUN, CREATININE, CA) XR CHEST 1 VW 2022-02-11 01:04:00 Jamari Floyd [facility] CT CHEST PULMONARY 2022-02-11 01:00:00 Jamari Floyd [facility] ANGIOGRAM Medical Branch TROPONIN I 2022-02-11 00:10:00 Jamari Floyd [facility] COMP. METABOLIC PANEL 2022-02-11 00:10:00 Jamari Floyd [facility] ([id number]) Medical Branch DIGOXIN 2022-02-11 00:10:00 Marck Hollingsworth [facility] CBC WITH DIFF 2022-02-11 00:10:00 Jamari Floyd [facility] N-TERMINAL PRO-BNP 2022-02-11 00:10:00 Jamari Floyd [facility] COVID-19 (ID NOW RAPID 2022-02-11 00:10:00 Jamari Floyd [facility] TESTING) Medical Branch HB ECG ROUTINE & RHYTHM 2022-02-11 00:06:21 [facility] 2022-02-10 05:01:00 Doctor Unassigned, No Uni [facility] Name Medical Branch XR CHEST 1 VW 2022-01-23 10:20:06 Malik Granados [facility] TROPONIN I 2022-01-23 10:08:00 Malik Granados [facility] COMP. METABOLIC PANEL 2022-01-23 10:08:00 Malik Granados [facility] ([id number]) Medical Branch CBC WITH DIFF 2022-01-23 10:08:00 Malik Granados [facility] PROTHROMBIN TIME / INR 2022-01-23 10:08:00 Malik Granados [facility] N-TERMINAL PRO-BNP 2022-01-23 10:08:[address] [facility] COVID-19 (ID NOW RAPID 2022-01-23 10:08:00 Malik Granados [facility] TESTING) Medical Branch XR CHEST 1 VW 2022-01-06 11:07:40 Singer [facility] MAGNESIUM 2022-01-06 10:51:00 [facility] TROPONIN I 2022-01-06 10:51:00 Singer [facility] COMP. METABOLIC PANEL 2022-01-06 10:51:00 Bautista, [facility] ([id number]) Medical Branch CBC WITH DIFF 2022-01-06 10:51:00 Singer [facility] N-TERMINAL PRO-BNP 2022-01-06 10:51:00 Singer [facility] COVID-19 (ID NOW RAPID 2021-12-18 01:10:00 Carin Solis [facility] TESTING) Medical Branch CT STROKE ANGIOGRAM 2021-12-18 00:21:46 Amisha [facility] HEAD Medical Branch CT STROKE ANGIOGRAM 2021-12-18 00:21:46 Amisha [facility] NECK [facility] CT HEAD WO CONTRAST 2021-12-18 00:13:32 Amisha [facility] XR CHEST 1 VW 2021-12-17 23:52:00 Amisha [facility] TROPONIN I 2021-12-17 23:38:00 Amisha [facility] COMP. METABOLIC PANEL 2021-12-17 23:38:00 Carin Solis [facility] ([id number]) Medical Branch CBC WITH DIFF 2021-12-17 23:38:00 Amisha [facility] URINALYSIS 2021-12-17 23:38:00 Amisha [facility] N-TERMINAL PRO-BNP 2021-12-17 23:38:00 Amisha [facility] POCT GLUCOSE 2021-11-22 16:08:00 [facility] (AUTOMATED) Medical Branch POCT GLUCOSE 2021-11-22 12:46:00 [facility] (AUTOMATED) Medical Branch POCT GLUCOSE 2021-11-21 21:55:00 [facility] (AUTOMATED) Medical Branch POCT GLUCOSE 2021-11-21 17:08:00 [facility] (AUTOMATED) Medical Branch POCT GLUCOSE 2021-11-21 13:07:00 [facility] (AUTOMATED) [facility] [place] BASIC METABOLIC PANEL 2021-11-21 10:10:00 Jessica Owen [facility] (NA, K, CL, CO2, Medical Branch GLUCOSE, BUN, CREATININE, CA) CBC WITH DIFF 2021-11-21 10:10:00 [facility] POCT GLUCOSE 2021-11-21 04:51:00 [facility] (AUTOMATED) [facility] POCT GLUCOSE 2021-11-21 01:04:00 [facility] (AUTOMATED) [facility] POCT GLUCOSE 2021-11-20 21:12:00 [facility] (AUTOMATED) [facility] POCT GLUCOSE 2021-11-20 16:06:00 [facility] (AUTOMATED) [facility] POCT GLUCOSE 2021-11-20 12:42:00 [facility] (AUTOMATED) [facility] MAGNESIUM 2021-11-20 11:11:00 [facility] TROPONIN I 2021-11-20 11:11:[address] [facility] BASIC METABOLIC PANEL 2021-11-20 11:11:00 Jessica Owen [facility] (NA, K, CL, CO2, Medical Branch GLUCOSE, BUN, CREATININE, CA) CBC WITH DIFF 2021-11-20 11:11:00 [facility] N-TERMINAL PRO-BNP 2021-11-20 11:11:[address] [facility] POCT GLUCOSE 2021-11-20 01:51:00 [facility] (AUTOMATED) [facility] URIC ACID, URIC RANDOM 2021-11-19 22:09:00 Roshan Limon [facility] POCT GLUCOSE 2021-11-19 21:18:00 [facility] (AUTOMATED) [facility] POCT GLUCOSE 2021-11-19 15:59:00 Garett Armas [facility] (AUTOMATED) [facility] TRANSTHORACIC ECHO 2021-11-19 15:50:00 Trip Power [facility] (TTE) COMPLETE [facility] POCT GLUCOSE 2021-11-19 13:08:00 Garett Armas [facility] (AUTOMATED) Medical Branch PHOSPHORUS 2021-11-19 09:36:00 [facility] CREATINE KINASE 2021-11-19 09:36:00 [facility] URIC ACID 2021-11-19 09:36:00 [facility] MAGNESIUM 2021-11-19 09:36:00 [facility] TROPONIN I 2021-11-19 09:36:00 [facility] COMP. METABOLIC PANEL 2021-11-19 09:36:00 Mehul mateo [facility] ([id number]) [facility] CBC WITH DIFF 2021-11-19 09:36:00 [facility] N-TERMINAL PRO-BNP 2021-11-19 09:36:00 [facility]ul [facility] LACTIC ACID WHOLE BLOOD 2021-11-18 23:39:00 Morgan Lazar [facility] LACTATE DEHYDROGENASE 2021-11-18 23:30:00 Mehul mateo [facility] TROPONIN I 2021-11-18 23:30:00 [facility] URINALYSIS 2021-11-18 18:03:00 [facility] URINE CULTURE 2021-11-18 18:03:00 [facility] PROTEIN CREAT RATIO 2021-11-18 18:03:00 Garett Armas [facility] URINE RANDOM [facility] UREA NITROGEN, URINE 2021-11-18 18:03:00 Garett Armas [facility] RANDOM [facility] SODIUM, URINE RANDOM 2021-11-18 18:03:00 Mehul mateo [facility] TROPONIN I 2021-11-18 17:17:00 Mehul mateo [facility] CREATINE KINASE 2021-11-18 14:38:00 [facility] C-REACTIVE PROTEIN 2021-11-18 14:38:00 Mehul [facility] TROPONIN I 2021-11-18 14:38:00 [facility] PROTHROMBIN TIME / INR 2021-11-18 14:38:00 Mehul mateo [facility] D-DIMER 2021-11-18 14:38:00 [facility] VITAMIN B12, LEVEL 2021-11-18 14:37:00 Mehul [facility] VITAMIN D, 25-OH 2021-11-18 14:37:00 Mehul [facility] PROCALCITONIN 2021-11-18 14:37:00 [facility] AC VBG + LACTIC ACID 2021-11-18 14:36:00 Mehul mateo [facility] XR CHEST 1 VW 2021-11-18 10:46:11 Singer Yovani [facility] COVID-19 (ID NOW RAPID 2021-11-18 10:39:00 Yovani Bautista [facility] TESTING) Medical Branch PHOSPHORUS 2021-11-18 10:30:00 [facility] URIC ACID 2021-11-18 10:30:00 [facility] LIPASE 2021-11-18 10:30:00 Singer [facility] MAGNESIUM 2021-11-18 10:30:00 Singer [facility] TROPONIN I 2021-11-18 10:30:00 Singer [facility] THYROID STIMULATING 2021-11-18 10:30:00 Mehul mateo [facility] HORMONE [facility] COMP. METABOLIC PANEL 2021-11-18 10:30:00 Yovani Bautista [facility] ([id number]) Medical Branch LIPID PANEL 2021-11-18 10:30:00 Mehul [facility] ([id number])(TOTAL Medical Branch CHOLESTEROL, TRIGLYCERIDES, HDL) IRON PANEL 2021-11-18 10:30:00 [facility] DIGOXIN 2021-11-18 10:30:00 Mehul mateo [facility] SEDIMENTATION RATE 2021-11-18 10:30:00 Mehul [facility] CBC WITH DIFF 2021-11-18 10:30:00 Singer [facility] GLYCOSYLATED HEMOGLOBIN 2021-11-18 10:30:00 Mehul [facility] (A1C) [facility] N-TERMINAL PRO-BNP 2021-11-18 10:30:00 Singer [facility] LACTIC ACID WHOLE BLOOD 2021-11-18 10:30:00 Singer [facility] HB ECG ROUTINE & RHYTHM 2021-11-18 10:23:37 Singer [facility] EKG-12 LEAD 2021-09-11 12:13:52 Malik Granados [facility] CT ABDOMEN PELVIS W 2021-09-11 12:02:00 Malik Granados [facility] CONTRAST [facility] LIPASE 2021-09-11 10:11:00 Malik Granados [facility] TROPONIN I 2021-09-11 10:11:00 Malik Granados [facility] COMP. METABOLIC PANEL 2021-09-11 10:11:00 Malik Granados [facility] ([id number]) [facility] DIGOXIN 2021-09-11 10:11:00 Malik Granados [facility] CBC WITH DIFF 2021-09-11 10:11:00 Malik Granados [facility] URINALYSIS 2021-09-11 10:11:00 Malik Granados [facility] POCT GLUCOSE 2021-09-11 10:02:00 Malik Granados [facility] (AUTOMATED) [facility] ASSIGNMENT OF BENEFITS 2021-07-25 22:26:25 Doctor Unassigned, No [facility] Name [facility] XR CHEST 1 VW 2021-07-25 22:13:52 Monico Mariee [facility] URINALYSIS 2021-07-25 21:51:00 Monico Mariee [facility] LIPASE 2021-07-25 21:42:00 Monico Mariee [facility] MAGNESIUM 2021-07-25 21:42:00 Monico Mariee [facility] TROPONIN I 2021-07-25 21:42:00 Monico Mariee [facility] COMP. METABOLIC PANEL 2021-07-25 21:42:00 Monico Mariee [facility] ([id number]) Medical Branch DIGOXIN 2021-07-25 21:42:00 Monico Mariee [facility] CBC WITH DIFF 2021-07-25 21:42:00 Monico Mariee [facility] N-TERMINAL PRO-BNP 2021-07-25 21:42:00 Monico [facility]e [facility] COVID-19 (ID NOW RAPID 2021-07-25 21:42:00 Monico Mariee [facility] TESTING) Medical Branch CONSENT/REFUSAL FOR 2021-07-25 21:34:33 Doctor Unassigned, No Un [facility] DIAGNOSIS AND TREATMENT Name Medical Branch POCT GLUCOSE 2021-07-25 21:24:00 Monico Mariee [facility] (AUTOMATED) [facility] EKG-12 LEAD 2021-07-13 04:31:38 Malik Granados [facility] CT ABDOMEN PELVIS W 2021-07-13 03:48:17 Malik Granados [facility] CONTRAST Medical Branch LIPASE 2021-07-13 01:45:00 Malik Granados [facility] TROPONIN I 2021-07-13 01:45:00 Malik Granados [facility] COMP. METABOLIC PANEL 2021-07-13 01:45:00 Malik Granados [facility] ([id number]) Medical Branch CBC WITH DIFF 2021-07-13 01:45:00 Malik Granados [facility] COVID-19 (ID NOW RAPID 2021-07-13 01:45:00 Malik Granados [facility] TESTING) Medical Branch NOTICE OF PRIVACY 2021-07-13 01:37:21 Doctor Unassigned, No [facility] Name Medical Branch CONSENT/REFUSAL FOR 2021-07-13 01:36:54 [facility] Branch POCT GLUCOSE 2021-02-26 21:34:00 Cady [facility] (AUTOMATED) [facility] [place] TRANSTHORACIC ECHO 2021-02-26 20:15:00 Cady [facility] (TTE) COMPLETE [facility] CT ABDOMEN PELVIS WO 2021-02-26 17:46:59 Lars Ann [facility] CONTRAST [facility] TROPONIN I 2021-02-26 17:20[facility]-02-26 17:17[facility]00 [facility]SE 2021-02-26 16:15:00 Cady [facility] (AUTOMATED) Medical Branch POCT GLUCOSE 2021-02-26 12:49:00 Cady [facility] (AUTOMATED) [facility] XR LUMBAR SPINE 2 VW 2021-02-26 12:12:46 [facility] MAGNESIUM 2021-02-26 08:36:00 Cady [facility] TROPONIN I 2021-02-26 08:36:00 Annie [facility] THYROID STIMULATING 2021-02-26 08:36[facility] CBC WITH DIFF 2021-02-26 08:36:[address] [facility] GLYC[facility] HEMOGLOBIN 2021-02-26 08:36:00 [facility] N-TERMINAL PRO-BNP 2021-02-26 08:36:00 [facility]OLIC PANEL 2021-02-26 08:20:00 Annie [facility] (NA, K, CL, CO2, Medical Branch GLUCOSE, BUN, CREATININE, CA) POCT GLUCOSE 2021-02-26 08:03:00 Cady [facility] (AUTOMATED) [facility] BASIC METABOLIC PANEL 2021-02-26 04:55:00 Ricky Weeks [facility] (NA, K, CL, CO2, Medical Branch GLUCOSE, BUN, CREATININE, CA) POCT GLUCOSE 2021-02-26 00:42:00 Cady [facility] (AUTOMATED) Medical Branch XR CHEST 1 VW 2021-02-25 19:25:17 Monico Mariee [facility] MAGNESIUM 2021-02-25 19:08:00 Monico Mariee [facility] TROPONIN I 2021-02-25 19:08:00 Monico Mariee [facility] COMP. METABOLIC PANEL 2021-02-25 19:08:00 Monico Mariee [facility] ([id number]) Medical Branch DIGOXIN 2021-02-25 19:08:00 Monico Mariee [facility] CBC WITH DIFF 2021-02-25 19:08:00 Monico Mariee [facility] PROTHROMBIN TIME / INR 2021-02-25 19:08:[address] [facility] ACTIVATED PARTIAL 2021-02-25 19:08:00 Monioc Mariee [facility] N-TERMINAL PRO-BNP 2021-02-25 19:08:00 Monico [facility]e [facility] COVID-19 (ID NOW RAPID 2021-02-25 19:08:[address] TEST[facility]) Medical Branch HB ECG ROUTINE & RHYTHM 2021-02-25 18:59:54 Monico Mariee [facility] XR CERVICAL SPINE 3 VW 2021-02-17 21:43:52 Addison Fahad [facility] XR HIPS 3 VW RIGHT 2021-02-17 20:54:[address] [facility] XR KNEE <3 VW RIGHT 2021-02-17 20:54:28 Fahad Griggs [facility] XR RIBS 3 VW RIGHT 2021-02-17 20:54:[address] [facility] XR CHEST 1 VW 2021-02-17 19:35:15 Lyle Ying [facility] CT CERVICAL SPINE WO 2020-07-29 19:55:45 [facility] CT HEAD WO CONTRAST 2020-07-29 19:55:45 Fahad Griggs [facility] CONSENT/REFUSAL FOR 2020-07-29 19:15:11 Doctor Unassigned, No Un [facility] DIAGNOSIS AND TREATMENT Name Medical Branch POCT GLUCOSE 2020-06-29 22:13:00 Marlena Martin [facility] (AUTOMATED) [facility] POCT GLUCOSE 2020-06-29 17:32:00 Marlena Martin [facility] (AUTOMATED) [facility] POCT GLUCOSE 2020-06-29 10:56:00 Marlena Martin [facility] (AUTOMATED) [facility] PHOSPHORUS 2020-06-29 10:54:00 [facility] URIC ACID 2020-06-29 10:54:00 [facility] MAGNESIUM 2020-06-29 10:54:00 [facility] TROPONIN I 2020-06-29 10:54:00 Suad [facility] COMP. METABOLIC PANEL 2020-06-29 10:54:00 Mehul mateo [facility] ([id number]) [facility] CBC WITH DIFF 2020-06-29 10:54:00 Suad [facility] N-TERMINAL PRO-BNP 2020-06-29 10:54:00 Garett [facility]as [facility] POCT GLUCOSE 2020-06-29 05:06:00 Marlena Martin [facility] (AUTOMATED) [facility] LACTATE DEHYDROGENASE 2020-06-29 05:04:00 Mehul [facility] TROPONIN I 2020-06-29 05:04:00 Roselyn Borjas [facility] POCT GLUCOSE 2020-06-29 01:58:00 Marlena Martin [facility] (AUTOMATED) Medical Branch POCT GLUCOSE 2020-06-28 22:41:00 Marlena Martin [facility] (AUTOMATED) Medical Branch CYTO PLEURAL FLUID 2020-06-28 19:51:00 G[facility]tt [facility] HB ECG ROUTINE & RHYTHM 2020-06-28 19:48:29 Roselyn Borjas [facility] TROPONIN I 2020-06-28 19:45:00 Roselyn Borjas [facility] IR THORACENTESIS WITH 2020-06-28 19:44:48 Garett Armas [facility] XR CHEST 1 VW 2020-06-28 19:44:32 Delfin Guadalupe [facility] AMYLASE BODY FLUID 2020-06-28 19:20:00 Garett [facility]as [facility] GLUCOSE BODY FLUID 2020-06-28 19:20:00 Mehul [facility] PH, BODY FLUID 2020-06-28 19:20:00 Mehul mateo [facility] T.PROTEIN BODY FLUID 2020-06-28 19:20:00 Garett Armas [facility] TOTAL BODY FLUID 2020-06-28 19:20:00 Mehul mateo [facility] BODY FLUID DIRECT COUNT 2020-06-28 19:20:00 Garett Armas [facility] BODY FLUID 2020-06-28 19:20:00 Mehul mateo [facility] CULTURE(AEROBIC/ANAEROB Medical Branch IC) POCT GLUCOSE 2020-06-28 18:06:00 Marlena Martin [facility] (AUTOMATED) Medical Branch POCT GLUCOSE 2020-06-28 14:07:00 Marlena Martin [facility] (AUTOMATED) Medical Branch PNEUMOCOCCAL ANTIGEN 2020-06-28 12:04:00 Garett Armas [facility] URINE CULTURE 2020-06-28 12:04:00 Mehul mateo [facility] UREA NITROGEN, URINE 2020-06-28 12:04:00 Garett Armas [facility] RANDOM [facility] SODIUM, URINE RANDOM 2020-06-28 12:04:00 Mehul mateo [facility] ADC / LCC - DRUG SCREEN 2020-06-28 12:04:00 Garett Armas [facility] TRIAGE [facility] PROTEIN CREAT RATIO 2020-06-28 12:04:00 Garett Armas [facility] URINE RANDOM Medical Branch PHOSPHORUS 2020-06-28 11:41:00 Mehul mateo [facility] LACTATE DEHYDROGENASE 2020-06-28 11:41:00 Mehul mateo [facility] URIC ACID 2020-06-28 11:41:00 Mehul mateo [facility] MAGNESIUM 2020-06-28 11:41:00 Mehul mateo [facility] VITAMIN B12, LEVEL 2020-06-28 11:41:00 Mehul [facility] FOLATE 2020-06-28 11:41:00 Mehul mateo [facility] TROPONIN I 2020-06-28 11:41:00 [facility] COMP. METABOLIC PANEL 2020-06-28 11:41:00 Mehul mateo [facility] ([id number]) [facility] IRON PANEL 2020-06-28 11:41:00 Mehul mateo [facility] SEDIMENTATION RATE 2020-06-28 11:41:00 Mehul [facility] CBC WITH DIFF 2020-06-28 11:41:00 Mehul mateo [facility] PROTHROMBIN TIME / INR 2020-06-28 11:41:00 Garett Armas [facility] N-TERMINAL PRO-BNP 2020-06-28 11:41:00 Mehul [facility]o [facility] VITAMIN D, 25-OH 2020-06-28 11:41:00 Mehul [facility] PROCALCITONIN 2020-06-28 11:41:00 [facility] BLOOD CULTURE SCREEN 2020-06-28 03:22:00 Marlena Martin [facility] BLOOD CULTURE SCREEN 2020-06-28 03:00:00 Marlena Martin [facility] CT CHEST PULMONARY 2020-06-28 01:21:00 Marlena Martin [facility] ANGIOGRAM [facility] XR CHEST 1 VW 2020-06-28 00:31:51 Singer [facility] PHOSPHORUS 2020-06-28 00:14:00 [facility] URIC ACID 2020-06-28 00:14:00 [facility] LIPASE 2020-06-28 00:14:00 Singer [facility] MAGNESIUM 2020-06-28 00:14:00 [facility] FERRITIN SERUM 2020-06-28 00:14:00 [facility] TROPONIN I 2020-06-28 00:14:00 [facility] 2020-06-28 00:14:00 Garett Armas [facility] HORMONE [facility] COMP. METABOLIC PANEL 2020-06-28 00:14:00 Yovani Bautista [facility] ([id number]) [facility] LIPID PANEL 2020-06-28 00:14:00 Mehul mateo [facility] ([id number])(TOTAL [facility] CHOLESTEROL, TRIGLYCERIDES, HDL) CBC WITH DIFF 2020-06-28 00:14:00 Yovani Bautista [facility] GLYCOSYLATED HEMOGLOBIN 2020-06-28 00:14:00 Garett Armas [facility] (A1C) [facility] PROTHROMBIN TIME / INR 2020-06-28 00:14:00 Yovani Bautista [facility] ACTIVATED PARTIAL 2020-06-28 00:14:00 Yovani Bautista [facility] N-TERMINAL PRO-BNP 2020-06-28 00:14:00 Yovani [facility]aut[facility] COVID-19 (ID NOW RAPID 2020-06-28 00:14:00 Yovani Bautista [facility] TESTING) [facility] HB ECG ROUTINE & RHYTHM 2020-06-28 00:03:42 Yovani Bautista [facility] CONSENT/REFUSAL FOR 2020-06-27 23:25:14 [facility] PHYSICIAN ORDERS 2019-09-01 05:01:00 Doctor Unassigned, No [facility] Name [facility] Encounters Start End Encounter Admission Attending Care Care Encounter Source Date/Time Date/Time Type Type Clinicians Facility Department ID 2022-06-25 Outpatient STLMLC STLMLC [id number] Common 11:36:01 [id number] [facility] 2022-05-27 Outpatient STLMLC STLMLC [id number] Common 13:11:03 [id number] [facility] 2022-05-27 2022-05-27 NON-BILLAB STLMLC STLMLC [id number] Common 00:00:00 00:00:00 LE VISIT [facility] 2022-02-12 2022-02-12 Transition BILLIE Vale [id number] Univers 00:00:00 00:00:00 of Care Sonja BONE [id number] it y [facility] [id number] [id number] Branch 2022-02-10 2022-02-11 Outpatient X [facility] [id number] Univers 18:24:00 17:04:00 CHAITANYA doe [facility] 2022-02-10 2022-02-11 Emergency Jamari Floyd [id number] Univers 18:24:00 17:04:00 Chaitanya H[id number] [facility] [id number] Filipe as [id number] [facility] 100 Branch 2022-01-23 2022-01-23 Emergency X ALEXLEVON [facility] ERT [id number] Univers 05:05:00 06:51:00 MALIK doe [facility] 2022-01-23 2022-01-23 [facility] [id number] Univers 05:05:00 06:51:00 Malik Burns ANDREW 350.1.13.10 [facility] [place] [id number] [place] 3[address]44 [place] 2022-01-06 2022-01-06 [facility] 1.2.176.119 [id number] Univers 05:51:00 07:55:00 Yovani RIVERSUZANNA 350.1.13.10 i ty of [facility] [place] [id number] [address] 2022-01-06 2022-01-06 Emergency [facility] [id number] Univers 05:51:00 07:55:00 YOVANI doe [facility] 2021-12-17 2021-12-17 Emergency [facility] [id number] Univers 17:58:00 21:25:00 CARIN doe [facility] 2021-12-17 2021-12-17 Emergency [facility] 1.2.840.114 [id number] Univers 17:58:00 21:25:00 Carin MORALES 350.1.13.10 i ty [facility] [place] [id number] [facility] [address] 2021-11-26 2021-11-26 Transition BILLIE Elizabeth 1.2.840.114 [id number] Univers 00:00:00 00:00:00 of Care Beba BONE 350.1.13.10 i [place] [id number] [facility] [address] 2021-11-18 2021-11-22 Inpatient X BRAYDEN [facility] [id number] Univers 05:21:00 12:20:00 JESSICA doe [facility] 2021-11-18 2021-11-22 [facility] Yovani Bautista [facility] 1.2.840.1 [id number] Univers 05:21:00 12:20:00 Encounter MehulGarett gomez 350.1.13.10 ity of [place] 4.2.7.2.686 [facility] [id number] [address] 2021-09-11 2021-09-11 Emergency X [facility] ERT [id number] Univers 05:09:00 08:26:00 [facility] 2021-09-11 2021-09-11 [facility] 1.2.614.093 [id number] Univers 05:09:00 08:26:00 Malik MORALES 350.1.13.[address] [facility] 4.2.7.2.6 [facility] [id number] [address] 2021-07-25 2021-07-25 Emergency X [facility] ERT [id number] Univers 15:23:00 17:37:00 MONICO doe [facility] 2021-07-25 2021-07-25 [facility] 1.2.104.531 [id number] Univers 15:23:00 17:37:00 Monico MORALES 350.1.13.10 i ty of [place] 4.2.7.[address] [place] [id number] 2021-07-12 2021-07-12 Emergency X [facility] ERT [id number] Univers 19:24:00 22:58:00 MALIK doe [facility] 2021-07-12 2021-07-12 [facility] 1.2.505.148 [id number] Univers 19:24:00 22:58:00 Malik MORALES 350.1.13.10 [address]y [address] [facility] 4.2.7.2.686 [facility] [id number] [address] 2021-02-27 2021-02-27 Transition Billie Vale 1.2.840.114 [id number] Univers 00:00:00 00:00:00 of Care Sonja Bone 350.1.13.10 it y of [place] 4.2.7.2.686 [facility] [id number] [facility] [address] 2021-02-25 2021-02-26 Emergency Kodi Monico R [facility] 1.2.840. 114 [id number] Univers 13:55:00 20:18:00 Morgan Lazar 350.1.13.10 ity of [place] 4.2.7.2.686 [facility] [id number] [place] 310041 [place] 2021-02-25 2021-02-25 Emergency X KODI [facility] ERT [id number] Univers 13:55:00 13:55:00 MONICO itamy [facility] 2021-02-17 2021-02-17 Emergency [facility] 1.2.840.114 [id number] Univers 14:26:00 18:33:00 Fahad Morales 350.1.13.10 i ty of [place] 4.2.7.2.686 [facility] [id number] [address] 2021-02-17 2021-02-17 Emergency X [facility] ERT [id number] Univers 14:26:00 14:26:00 ity of [facility] 2020-07-29 2020-07-29 Emergency [facility] 1.2.840.114 [id number] Univers 13:39:00 16:33:00 Fahad Morales 350.1.13.10 i ty of [place] 4.2.7.2.686 [facility] [id number] [address] 2020-07-29 2020-07-29 Emergency X GRIGGS, [facility] ERT [id number] Univers 13:39:00 13:39:00 FAHAD doe [facility] 2020-07-04 2020-07-04 Transition Billie Latif 1.2.840.114 [id number] Univers 00:00:00 00:00:00 of Care Bonny Bone 350.1.13.10 [place] y [place] [id number] [facility] [address] 2020-06-27 2020-06-29 Hospital Marlena Martin [facility] 1.2.840.11 [id number] Univers 17:58:00 19:18:00 Encounter Garett Armas 350.1.13.10 [place] [id number] [facility] [address] 2020-06-27 2020-06-29 Inpatient X MEHUL [facility] [id number] Univers 17:58:00 19:18:00 GARETT doe [facility] 2020-06-27 2020-06-27 Orders Doctor KIAH 1.2.840.114 [id number] Univers 00:00:00 00:00:00 Only Unassigned, YEHUDA 350.1.13.10 ity of [place] [facility] 4.2.7.2.686 [place] as [id number] [address] 2019-09-01 2019-09-01 Office [facility] 1.2.840.114 [id number] Univers 09:55:41 10:13:47 Visit Donna Morales 350.1.13.10 [place]2.[place] [facility] [id number] [address] 2019-09-01 2019-09-01 Outpatient R JALYN [facility] [id number] Univers 10:00:00 10:00:00 DONNA doe [facility] 2019-09-01 2019-09-01 Orders Doctor KIAH 1.2.840.114 [id number] Univers 00:00:00 00:00:00 Only Unassigned, YEHUDA 350.1.13.10 ity of [place] [facility] 4.2.7.2.686 [place] as [id number] [address] Results Test Description Test Time Test Comments Results Result Comments Source DIGOXIN 2022-02-11 21:08:20 Test Item Value Reference Range Interpretation Comme nts DIGOXIN (test code = 6204135636) 0.9 ng/mL 0.8-1.6 LUZ (test code = LUZ) Arrythmias: ?1.5 - 2.0 ng/mLToxic Range: ? Greater than or equal to 2.4 ng/mL Lab Interpretation (test code = 37755-4) Normal [facility]2022-[facility] 20:53:15 Test Item Value Reference Range Interpretation Comments DIGOXIN (test code = 0.9 ng/mL 0.8-1.6 8370797844) LUZ (test code = LUZ) Arrythmias: ?1.5 - 2.0 ng/mLToxic Range: ? Greater than or equal to 2.4 ng/mL Lab Interpretation (test Normal code = 14718-6) [facility]2022-09-20 18:19:07 Test Item Value Reference Interpretation Comments Range Procalcitonin (test 0.03 ng/mL See_Comment [Automa beatrice code = 2662361226) message] The system which generated this result [...] lung abscess/empyema. For further information please refer to:[email or web address] Lab Interpretation Normal (test code = 25696-4) [facility]AUTOMATED)2022-02-11 16:43:47 Test Item Value Reference Range Interpretation Comments POCT GLU (test code = 9811940112) 302 mg/dL 70-110 H Lab Interpretation (test code = Abnormal 30734-1) [facility] [id number] 13:58:53 Test Item Value Reference Interpretation Comments Range TROPONIN I (test 0.019 ng/mL See_Comment [Automated code = 0799847453) message] The system which generated this result [...] biotin. Lab Interpretation Normal (test code = 69057-3) [facility]FL GLUCOSE (AUTOMATED)2022-02-11 13:18:28 Test Item Value Reference Range Interpretation Comments POCT GLU (test code = 7378779135) 123 mg/dL 70-110 H Lab Interpretation (test code = Abnormal 26942-1) [facility]2022-09-20 12:47:51 Test Item Value Reference Range Interpretation Comments MAGNESIUM (test code = 5014712656) 2.5 mg/dL 1.7-2.4 H Lab Interpretation (test code = Abnormal 15536-4) [facility] (NA, K, CL, CO2, GLUCOSE, BUN, CREATININE, CA)2022-02-11 12:47:51 Test Item Value Reference Range Interpretation Comments NA (test code = 136 mmol/L 135-145 6734626057) K (test code = 4.2 mmol/L 3.5-5 5128327819) CL (test code = 101 mmol/L 98-108 7704985843) CO2 TOTAL (test code = 27 mmol/L 23-31 5757710204) AGAP (test code = 2-16 4489199240) BUN (test code = 48 mg/dL 7-23 H 3081985065) GLUCOSE (test code = 119 mg/dL 70-110 H 1981416180) CREATININE (test code = 1.58 mg/dL 0.6-1.25 H 2745037625) CALCIUM (test code = 8.8 mg/dL 8.6-10.6 6976507831) eGFR (test code = mL/min/1.73m2 9711602994) LUZ (test code = LUZ) Association of [...] tests). Lab Interpretation Abnormal (test code = 43042-5) [facility] WITH [id number] 01:04:16 Test Item Value Reference Range Interpretation Comments WBC (test code = See_Comment H [Automated 7590-2) message] The sy stem which generated this result transmitted reference range : 4.20 - 10.70 10*3/?L. The reference range was not used to interpret this result as normal/abnormal . RBC (test code = See_Comment L [Automated 219-8) message] The sy stem which generated this [...] (test code = 53.3 fL 38.5-51.6 H 10873-4) RDW-CV (test code = 17.2 % 12.1-15.4 H 788-0) PLT (test code = See_Comment H [Automated 777-3) message] The sy stem which generated this result transmitted reference range : 150 - 328 10*3/ ?L. The reference r stephanie was not used to interpret this result as normal/abnormal . MPV (test code = 11.0 fL 9.8-13 73308-1) NRBC/100 WBC (test See_Comment [Automat ed code = 4502347921) message] The system which generated this result transmitted reference range : 0.0 - 10.0 /100 WBCs. The refer ence range was not u sed to interpret th is result as normal/abnormal . NRBC x10^3 (test code See_Comment [Auto mated = 0816816504) message] The s ystem which generated this result transmitted reference range : 10*3/?L. The reference range was not used to interpret this result as normal/abnormal . SEG % (test code = 50 % 33-76 82346-2) BAND % (test code = 1 % 0-1 07822-2) LYMPH % (test code = 17 % 14-54 89436-3) MONO % (test code = 8 % 0-4 H 36755-0) EOS % (test code = 23 % 0-3 H 58458-4) BASO % (test code = 1 % 0-1 50365-0) ANC (test code = 5.62 10*3/uL 1.99-6.95 753-4) Lab Interpretation Abnormal (test code = 23960-0) [facility] [id number] 00:47:16 Test Item Value Reference Interpretation Comments Range TROPONIN I (test 0.022 ng/mL See_Comment [Automated code = 5826717625) message] The system which generated this result [...] biotin. Lab Interpretation Normal (test code = 93875-1) [facility] [id number] 00:43:59 Test Item Value Reference Range Interpretation Comments NT-proBNP (test code 2520 pg/mL See_Comment H [Autom ated = 8789565697) message] The system which generated this result transmitted reference range : <=450. The reference range was not used to interpret this result as normal/abnormal . LUZ (test code = LUZ) Biotin has been reported to cause a negative bias, interpret results relative to patient's use of biotin. Lab Interpretation Abnormal (test code = 39578-8) [facility] METABOLIC PANEL (30413)2022-02-11 00:36:13 Test Item Value Reference Range Interpretation Comments NA (test code = 139 mmol/L 135-145 6855881957) K (test code = 5.0 mmol/L 3.5-5 7865361519) CL (test code = 96 mmol/L 98-108 L 7377265225) CO2 TOTAL (test code = 30 mmol/L 23-31 6536775430) AGAP (test code = 2-16 1837219860) BUN (test code = 50 mg/dL 7-23 H 1158837122) GLUCOSE (test code = 147 mg/dL 70-110 H 1206744274) CREATININE (test code = 1.71 mg/dL 0.6-1.25 H 9285851772) TOTAL BILI (test code = 0.7 mg/dL 0.1-1.8 4794734975) CALCIUM (test code = 9.3 mg/dL 8.6-10.6 7030720816) T PROTEIN (test code = 7.2 g/dL 6.3-8.2 2407459121) ALBUMIN (test code = 4.4 g/dL 3.5-5 6193850142) ALK PHOS (test code = 99 U/L 34-122 8125987455) ALTv (test code = 14 U/L 5-50 2-6) AST(SGOT) (test code = 14 U/L 13-40 2583450451) eGFR (test code = mL/min/1.73m2 4731062888) LUZ (test code = LUZ) Association of [...] tests). Lab Interpretation Abnormal (test code = 49979-1) [facility]cos[facility]throm[facility] Time / [id number] 11:05:09 Test Item Value Reference Range Interpretation [...] tions. Lab Interpretation (test Abnormal code = 79070-7) [facility]TR[facility] [id number] 10:48:07 Test Item Value Reference Interpretation Comments Range TROPONIN I (test 0.027 ng/mL See_Comment [Automated code = 2595476468) message] The system which generated this result [...] biotin. Lab Interpretation Normal (test code = 25574-3) [facility]AL [id number] 10:44:31 Test Item Value Reference Range Interpretation Comments NT-proBNP (test code 2230 pg/mL See_Comment H [Autom ated = 2547810883) message] The system which generated this result transmitted reference range : <=450. The reference range was not used to interpret this result as normal/abnormal . LUZ (test code = LUZ) Biotin has been reported to cause a negative bias, interpret results relative to patient's use of biotin. Lab Interpretation Abnormal (test code = 52810-6) [facility]. METABOLIC PANEL (52263)2022-01-23 10:36:26 Test Item Value Reference Range Interpretation Comments NA (test code = 140 mmol/L 135-145 8363270253) K (test code = 4.6 mmol/L 3.5-5 3639762436) CL (test code = 104 mmol/L 98-108 8544041528) CO2 TOTAL (test code = 28 mmol/L 23-31 8192132163) AGAP (test code = 2-16 0439361201) BUN (test code = 42 mg/dL 7-23 H 8440340670) GLUCOSE (test code = 138 mg/dL 70-110 H 0374515833) CREATININE (test code = 1.21 mg/dL 0.6-1.25 9581274892) TOTAL BILI (test code = 0.6 mg/dL 0.1-1.9 0070854480) CALCIUM (test code = 9.1 mg/dL 8.6-10.6 9312253928) T PROTEIN (test code = 6.4 g/dL 6.3-8.2 2836691950) ALBUMIN (test code = 3.9 g/dL 3.5-5 4872046534) ALK PHOS (test code = 101 U/L 34-122 4144046376) ALTv (test code = 14 U/L 5-50 1742-6) AST(SGOT) (test code = 18 U/L 13-40 7895861710) eGFR (test code = mL/min/1.73m2 5852988013) LUZ (test code = LUZ) Association of [...] tests). Lab Interpretation Abnormal (test code = 00241-2) [facility] WITH [id number] 10:23:05 Test Item Value Reference Range Interpretation Comments WBC (test code = See_Comment [Automated 2390-2) message] The sy stem which generated this result transmitted reference range : 4.20 - 10.70 10*3/?L. The reference range was not used to interpret this result as normal/abnormal . RBC (test code = See_Comment L [Automated 399-8) message] The sy stem which generated this [...] (test code = 55.8 fL 38.5-51.6 H 90785-9) RDW-CV (test code = 17.8 % 12.1-15.4 H 788-0) PLT (test code = See_Comment [Automated 777-3) message] The sy stem which generated this result transmitted reference range : 150 - 328 10*3/ ?L. The reference r stephanie was not used to interpret this result as normal/abnormal . MPV (test code = 10.8 fL 9.8-13 89258-8) NRBC/100 WBC (test See_Comment [Automat ed code = 9287246673) message] The system which generated this result transmitted reference range : 0.0 - 10.0 /100 WBCs. The refer ence range was not u sed to interpret th is result as normal/abnormal . NRBC x10^3 (test code See_Comment [Auto mated = 9943786798) message] The s ystem which generated this result transmitted reference range : 10*3/?L. The reference range was not used to interpret this result as normal/abnormal . GRAN MAT (NEUT) % 39.5 % (test code = 770-8) IMM GRAN % (test code 0.30 % = 5151329164) LYMPH % (test code = 19.4 % 736-9) MONO % (test code = 11.3 % 5905-5) EOS % (test code = 28.8 % 713-8) BASO % (test code = 0.7 % 706-2) GRAN MAT x10^3(ANC) 2.68 10*3/uL 1.99-6.95 (test code = 5494701932) IMM GRAN x10^3 (test 0-0.06 code = 7171719021) LYMPH x10^3 (test code 1.32 10*3/uL 1.09-3.23 = 731-0) MONO x10^3 (test code 0.77 10*3/uL 0.36-1.02 = 742-7) EOS x10^3 (test code = 1.96 10*3/uL 0.06-0.53 H 711-2) BASO x10^3 (test code 0.05 10*3/uL 0.01-0.09 = 704-7) Lab Interpretation Abnormal (test code = 14773-3) [facility] [id number] 12:10:51 Test Item Value Reference Interpretation Comments Range TROPONIN I (test 0.019 ng/mL See_Comment [Automated code = 0713784564) message] The system which generated this result [...] biotin. Lab Interpretation Normal (test code = 65597-6) [facility] [id number] 12:07:30 Test Item Value Reference Range Interpretation Comments NT-proBNP (test code 2730 pg/mL See_Comment H [Autom ated = 9432757784) message] The system which generated this result transmitted reference range : <=450. The reference range was not used to interpret this result as normal/abnormal . LUZ (test code = LUZ) Biotin has been reported to cause a negative bias, interpret results relative to patient's use of biotin. Lab Interpretation Abnormal (test code = 52510-8) [facility]2022-08-15 12:00:10 Test Item Value Reference Range Interpretation Comments MAGNESIUM (test code = 3472793801) 1.9 mg/dL 1.7-2.4 Lab Interpretation (test code = Normal 53404-5) [facility] METABOLIC PANEL (10658)2022-01-06 11:59:50 Test Item Value Reference Range Interpretation Comments NA (test code = 140 mmol/L 135-145 6980627227) K (test code = 4.9 mmol/L 3.5-5 7343724539) CL (test code = 105 mmol/L 98-108 4576301607) CO2 TOTAL (test code = 22 mmol/L 23-31 L 3770653350) AGAP (test code = 2-16 6945828868) BUN (test code = 29 mg/dL 7-23 H 0700285922) GLUCOSE (test code = 155 mg/dL 70-110 H 1702834708) CREATININE (test code = 1.20 mg/dL 0.6-1.25 4809296233) TOTAL BILI (test code = 0.9 mg/dL 0.1-1.8 4019225340) CALCIUM (test code = 9.1 mg/dL 8.6-10.6 7262327475) T PROTEIN (test code = 7.1 g/dL 6.3-8.2 6529624918) ALBUMIN (test code = 4.2 g/dL 3.5-5 2851398743) ALK PHOS (test code = 85 U/L 34-122 8554570587) ALTv (test code = 12 U/L 5-50 1742-6) AST(SGOT) (test code = 14 U/L 13-40 6815668809) eGFR (test code = mL/min/1.73m2 8277379212) LZU (test code = LUZ) Association of Glomerular [...] tests). Lab Interpretation Abnormal (test code = 83010-8) [facility] WITH [id number] 11:34:48 Test Item Value Reference Range Interpretation [...] (test code = 56.3 fL 38.5-51.6 H 84227-9) RDW-CV (test code = 17.7 % 12.1-15.4 H 788-0) PLT (test code = See_Comment [Automated 777-3) message] The sy stem which generated this result transmitted reference range : 150 - 328 10*3/ ?L. The reference r stephanie was not used to interpret this result as normal/abnormal . MPV (test code = 10.8 fL 9.8-13 17191-4) NRBC/100 WBC (test See_Comment [Automat ed code = 9956006311) message] The system which generated this result transmitted reference range : 0.0 - 10.0 /100 WBCs. The refer ence range was not u sed to interpret th is result as normal/abnormal . NRBC x10^3 (test code See_Comment [Auto mated = 6225153217) message] The [employer] which generated this result transmitted reference range : 10*3/?L. The reference range was not used to interpret this result as normal/abnormal . GRAN MAT (NEUT) % 72.3 % (test code = 770-8) IMM GRAN % (test code 1.10 % = 0999566609) LYMPH % (test code = 10.1 % 736-9) MONO % (test code = 10.9 % 5905-5) EOS % (test code = 4.8 % 713-8) BASO % (test code = 0.8 % 706-2) GRAN MAT x10^3(ANC) 7.47 10*3/uL 1.99-6.95 H (test code = 4275743886) IMM GRAN x10^3 (test 0.11 10*3/uL 0-0.06 H code = 1588180502) LYMPH x10^3 (test code 1.04 10*3/uL 1.09-3.23 L = 731-0) MONO x10^3 (test code 1.13 10*3/uL 0.36-1.02 H = 742-7) EOS x10^3 (test code = 0.50 10*3/uL 0.06-0.53 711-2) BASO x10^3 (test code 0.08 10*3/uL 0.01-0.09 = 704-7) Lab Interpretation Abnormal (test code = 43489-1) [facility]AST[facility]MAN[facility] [id number] 00:39:30 Test Item Value Reference Interpretation Comments Range TROPONIN I (test 0.010 ng/mL See_Comment [Automated code = 4737543577) message] The system which generated this result [...] biotin. Lab Interpretation Normal (test code = 23301-3) [facility] [id number] 00:36:12 Test Item Value Reference Range Interpretation Comments NT-proBNP (test code 1390 pg/mL See_Comment H [Autom ated = 0484484622) message] The system which generated this result transmitted reference range : <=450. The reference range was not used to interpret this result as normal/abnormal . LUZ (test code = LUZ) Biotin has been reported to cause a negative bias, interpret results relative to patient's use of biotin. Lab Interpretation Abnormal (test code = 73189-3) [facility] METABOLIC PANEL (30433)2021-12-18 00:28:47 Test Item Value Reference Range Interpretation Comments NA (test code = 140 mmol/L 135-145 3225105917) K (test code = 4.9 mmol/L 3.5-5 3101308420) CL (test code = 101 mmol/L 98-108 1457880305) CO2 TOTAL (test code = 23 mmol/L 23-31 6996210412) AGAP (test code = 2-16 0853931939) BUN (test code = 27 mg/dL 7-23 H 7382190371) GLUCOSE (test code = 114 mg/dL 70-110 H 8771314366) CREATININE (test code = 1.20 mg/dL 0.6-1.25 4392688164) TOTAL BILI (test code = 0.6 mg/dL 0.1-1.2 6559438127) CALCIUM (test code = 9.3 mg/dL 8.6-10.6 2905648890) T PROTEIN (test code = 7.2 g/dL 6.3-8.2 6648796247) ALBUMIN (test code = 4.3 g/dL 3.5-5 8711462648) ALK PHOS (test code = 85 U/L 34-122 1025294449) ALTv (test code = 14 U/L 5-50 1742-6) AST(SGOT) (test code = 15 U/L 13-40 3857542040) eGFR (test code = mL/min/1.73m2 6105254919) LUZ (test code = LUZ) Association of [...] tests). Lab Interpretation Abnormal (test code = 16900-6) [facility] WITH [id number] 00:21:10 Test Item Value Reference Range Interpretation Comments WBC (test code = See_Comment [Automated 4105-2) message] The sy stem which generated this result transmitted reference range : 4.20 - 10.70 10*3/?L. The reference range was not used to interpret this result as normal/abnormal . RBC (test code = See_Comment L [Automated 039-8) message] The sy stem which generated this [...] (test code = 59.7 fL 38.5-51.6 H 94138-4) RDW-CV (test code = 19.0 % 12.1-15.4 H 788-0) PLT (test code = See_Comment [Automated 777-3) message] The sy stem which generated this result transmitted reference range : 150 - 328 10*3/ ?L. The reference r stephanie was not used to interpret this result as normal/abnormal . MPV (test code = 10.5 fL 9.8-13 40971-7) NRBC/100 WBC (test See_Comment [Automat ed code = 2055670593) message] The system which generated this result transmitted reference range : 0.0 - 10.0 /100 WBCs. The refer ence range was not u sed to interpret th is result as normal/abnormal . NRBC x10^3 (test code See_Comment [Auto mated = 5286674129) message] The s ystem which generated this result transmitted reference range : 10*3/?L. The reference range was not used to interpret this result as normal/abnormal . GRAN MAT (NEUT) % 50.9 % (test code = 770-8) IMM GRAN % (test code 0.50 % = 6110321361) LYMPH % (test code = 21.8 % 736-9) MONO % (test code = 12.9 % 5905-5) EOS % (test code = 12.7 % 713-8) BASO % (test code = 1.2 % 706-2) GRAN MAT x10^3(ANC) 3.92 10*3/uL 1.99-6.95 (test code = [id number]) IMM GRAN x10^3 (test 0.04 10*3/uL 0-0.06 code = [id number]) LYMPH x10^3 (test code 1.68 10*3/uL 1.09-3.23 = 731-0) MONO x10^3 (test code 0.99 10*3/uL 0.36-1.02 = 742-7) EOS x10^3 (test code = 0.98 10*3/uL 0.06-0.53 H 711-2) BASO x10^3 (test code 0.09 10*3/uL 0.01-0.09 = 704-7) Lab Interpretation Abnormal (test code = 26105-2) [facility] GLUCOSE (AUTOMATED)2021-11-22 16:20:26 Test Item Value Reference Range Interpretation Comments POCT GLU (test code = [id number]) 211 mg/dL 70-110 H Lab Interpretation (test code = Abnormal 83990-5) [facility] GLUCOSE (AUTOMATED)2021-11-22 12:57:11 Test Item Value Reference Range Interpretation Comments POCT GLU (test code = 2934756716) 237 mg/dL 70-110 H Lab Interpretation (test code = Abnormal 07313-3) [facility] GLUCOSE (AUTOMATED)2021-11-21 22:10:02 Test Item Value Reference Range Interpretation Comments POCT GLU (test code = 9995015284) 229 mg/dL 70-110 H Lab Interpretation (test code = Abnormal 33320-8) [facility] GLUCOSE (AUTOMATED)2021-11-21 17:12:43 Test Item Value Reference Range Interpretation Comments POCT GLU (test code = 1529995495) 208 mg/dL 70-110 H Lab Interpretation (test code = Abnormal 34508-2) [facility] WITH [id number] 14:22:33 Test Item Value Reference Range Interpretation [...] RDW-SD (test code = 51.1 fL 38.5-51.6 75818-6) RDW-CV (test code = 17.2 % 12.1-15.4 H 788-0) PLT (test code = See_Comment [Automated 777-3) message] The sy stem which generated this result transmitted reference range : 150 - 328 10*3/ ?L. The reference r stephanie was not used to interpret this result as normal/abnormal . MPV (test code = 10.7 fL 9.8-13.0 08685-3) NRBC/100 WBC (test See_Comment [Automat ed code = 4842435713) message] The system which generated this result transmitted reference range : 0.0 - 10.0 /100 WBCs. The refer ence range was not u sed to interpret th is result as normal/abnormal . NRBC x10^3 (test code <0.01 See_Comment [Auto mated = 2967400999) message] The s ystem which generated this result transmitted reference range : 10*3/?L. The reference range was not used to interpret this result as normal/abnormal . GRAN MAT (NEUT) % 60.2 % (test code = 770-8) IMM GRAN % (test code 0.80 % = 0574683752) LYMPH % (test code = 24.4 % 736-9) MONO % (test code = 14.3 % 5905-5) EOS % (test code = 0.3 % 713-8) BASO % (test code = 0.0 % 706-2) GRAN MAT x10^3(ANC) 2.15 10*3/uL 1.99-6.95 (test code = 2188441871) IMM GRAN x10^3 (test 0.03 10*3/uL 0.00-0.06 code = 8915069103) LYMPH x10^3 (test code 0.87 10*3/uL 1.09-3.23 [...] 2+ See_Comment A [Automat ed code = 47178-0) message] The system which generated this result transmitted reference range : (none). The reference range was not used to interpret this result as normal/abnormal . BANDS (test code = Increased A 2728171403) LG GRAN LYMPHS (test Rare Rare code = 1560914233) GIANT PLATELETS (test Present See_Comment A [Auto mated code = 5908-9) message] The system which generated this result transmitted reference range : (none). The reference range was not used to interpret this result as normal/abnormal . Lab Interpretation Abnormal (test code = 67178-8) [facility] 13:39:25 Test Item Value Reference Range Interpretation Comments POCT GLU (test code = 7974096454) 212 mg/dL 70-110 H Lab Interpretation (test code = Abnormal 18407-4) [facility] METABOLIC PANEL (NA, K, CL, CO2, GLUCOSE, BUN, CREATININE, CA)2021-11-21 11:11:53 Test Item Value Reference Range Interpretation Comments NA (test code = 136 mmol/L 135-145 2821143266) K (test code = 4.8 mmol/L 3.5-5.0 4635575605) CL (test code = 102 mmol/L 98-108 7448039153) CO2 TOTAL (test code = 26 mmol/L 23-31 4645977454) AGAP (test code = 2-16 3338495936) BUN (test code = 36 mg/dL 7-23 H 2875870828) GLUCOSE (test code = 204 mg/dL 70-110 H 0790759837) CREATININE (test code = 0.85 mg/dL 0.60-1.25 8340792856) CALCIUM (test code = 8.6 mg/dL 8.6-10.6 5728657598) eGFR (test code = mL/min/1.73m2 7188341404) LUZ (test code = LUZ) Association of [...] tests). Lab Interpretation Abnormal (test code = 85598-2) [facility]-21 06:56:21 Test Item Value Reference Range Interpretation Comments Height (test code = in 9161167309) Weight (test code = lbs 7102921004) Systolic BP (test code = mmHg 8389021791) Diastolic BP (test code = mmHg 3090221134) Heart Rate (test code = bpm 4914400574) BSA (test code = 2.08 m2 1267335709) Ao root annulus (test code 3.3 cm = 5691975432) Ao root diam (test code = 3.30 cm 4098494317) Aortic root (test code = 3.3 cm 0406348857) LVOT diameter (test code = 1.86 cm 0214135538) LVIDD (test code = 3.30 cm 6947890362) IVS (test code = 1.51 cm 9929264213) Interventricular Septum 1.51 cm Diastolic Thickness by 2D (test code = 6837188) LVPWD (test code = 1.53 cm 4551200142) PW (test code = 1.53 cm 0.6-1.9 5200413399) EF(Teich) (test code = 58.10 % 3805899826) LVIDS (test code = 2.33 cm 7552205990) FS (test code = 30 % 7260806544) EF - 2D (test code = 58.10 % 82866488) LA size (test code = 5.4 cm 6520408668) TR Peak Norberto (test code = 300.5 cm/s 1845263678) Triscuspid Valve mmHg Regurgitation Peak Gradient (test code = 1278346376) Pulmonic Regurgitant End 52.1 cm/s Max Velocity (test code = 6816609774) LAV(MOD-sp4) (test code = 144.00 mL 9174160251) MV stenosis pressure 1/2 75.1 ms time (test code = 0467270851) MV Peak E Norberto (test code = 160.8 cm/s 7720244712) E wave decelartion time 0.25 s (test code = 9182224796) MV Peak A Norberto (test code = 65.7 cm/s 9818099358) E/A ratio (test code = ratio 9626038908) MR max PG (test code = 67.10 mm[Hg] 1789250104) MR max norberto (test code = 409.60 cm/s 2985354032) Mr max norberto (test code = 409.6 m/s 0217780189) MV Prop V (test code = 80.30 cm/s 8242963455) MV E/e' septal (test code 11.8 cm/s = 3202032638) Tapse (test code = 0.67 cm 8020205038) LVOT stroke volume (test 56.70 cm3 code = 7470311398) LVOT peak norberto (test code = 98.5 cm/s 4238394281) LVOT mn grad (test code = mmHg 8733145976) AV LVOT peak gradient mmHg (test code = 1750245240) LVOT peak VTI (test code = 20.8 cm 0499451936) LV V1 mean (test code = 70.30 cm/s 6788677296) Aortic valve mean velocity 107.1 cm/s (test code = 6752605993) Ao peak norberto (test code = 148.3 cm/s 5136863807) Ao VTI (test code = 27.8 cm 8521682044) AV area by cont VTI (test 2.0 cm2 code = 2939263322) AV area peak norberto (test 1.8 cm2 code = 0523052678) Ao max PG (test code = 8.80 mm[Hg] 7518840657) AV peak gradient (test mmHg code = 7417589967) AV valve area (test code = 2.04 cm2 4033924765) AV mean gradient (test mmHg code = 5908659290) Radiology Study observation (narrative) (test code = 23112-2) LUZ (test code = LUZ) ?Left?Ventricle: Left ventricle size is normal. Moderately increased wall thickness. Normal systolic function with a visually estimated EF of 55 - 60%. ?Pulmonic?Valve: Pulmonic valve is normal in structure and function. ?Mitral?Valve: Mitral valve structure is normal. Moderately thickened leaflets. Moderately calcified leaflets. ?Tricuspid?Valve: Tricuspid valve structure is normal. [facility] GLUCOSE (AUTOMATED)2021-11-21 04:55:54 Test Item Value Reference Range Interpretation Comments POCT GLU (test code = 9013489099) 284 mg/dL 70-110 H Lab Interpretation (test code = Abnormal 65625-5) [facility] GLUCOSE (AUTOMATED)2021-11-21 03:03:48 Test Item Value Reference Range Interpretation Comments POCT GLU (test code = 6570834331) 344 mg/dL 70-110 H Lab Interpretation (test code = Abnormal 80826-7) [facility] GLUCOSE (AUTOMATED)2021-11-20 21:19:00 Test Item Value Reference Range Interpretation Comments POCT GLU (test code = 0968838607) 327 mg/dL 70-110 H Lab Interpretation (test code = Abnormal 91178-7) [facility] GLUCOSE (AUTOMATED)2021-11-20 16:12:09 Test Item Value Reference Range Interpretation Comments POCT GLU (test code = 0259644810) 266 mg/dL 70-110 H Lab Interpretation (test code = Abnormal 14942-3) [facility] WITH [id number] 14:17:38 Test Item Value Reference Range Interpretation [...] (test code = 52.3 fL 38.5-51.6 H 95268-2) RDW-CV (test code = 17.5 % 12.1-15.4 H 788-0) PLT (test code = See_Comment [Automated 777-3) message] The sy stem which generated this result transmitted reference range : 150 - 328 10*3/ ?L. The reference r stephanie was not used to interpret this result as normal/abnormal . MPV (test code = 10.2 fL 9.8-13.0 59906-7) NRBC/100 WBC (test See_Comment [Automat ed code = 1406304622) message] The system which generated this result transmitted reference range : 0.0 - 10.0 /100 WBCs. The refer ence range was not u sed to interpret th is result as normal/abnormal . NRBC x10^3 (test code <0.01 See_Comment [Auto mated = 0515108371) message] The s ystem which generated this result transmitted reference range : 10*3/?L. The reference range was not used to interpret this result as normal/abnormal . GRAN MAT (NEUT) % 62.0 % (test code = 770-8) IMM GRAN % (test code 1.90 % = 6050285171) LYMPH % (test code = 22.7 % 736-9) MONO % (test code = 13.1 % 5905-5) EOS % (test code = 0.0 % 713-8) BASO % (test code = 0.3 % 706-2) GRAN MAT x10^3(ANC) 1.99 10*3/uL 1.99-6.95 (test code = 1563839602) IMM GRAN x10^3 (test 0.06 10*3/uL 0.00-0.06 code = 6278728847) LYMPH x10^3 (test code 0.73 10*3/uL 1.09-3.23 L = 731-0) MONO x10^3 (test code 0.42 10*3/uL 0.36-1.02 = 742-7) EOS x10^3 (test code = <0.03 0.06-0.53 L 711-2) BASO x10^3 (test code <0.03 0.01-0.09 = 704-7) KATE CELLS (test code 2+ See_Comment A [Auto mated = 7787-9) message] The sy stem which generated this result transmitted reference range : (none). The reference range was not used to interpret this result as normal/abnormal . ELLIPTO/OVAL (test 2+ See_Comment A [Automat ed code = 41168-0) message] The system which generated this result transmitted reference range : (none). The reference range was not used to interpret this result as normal/abnormal . BANDS (test code = Increased A 4011055456) LG GRAN LYMPHS (test Rare Rare code = 8328981447) TOXIC CHANGES (test Present A code = 803-7) Lab Interpretation Abnormal (test code = 63902-9) [facility] [id number] 14:00:33 Test Item Value Reference Interpretation Comments Range TROPONIN I (test 0.022 ng/mL See_Comment [Automated code = 9617004777) message] The system which generated this result [...] biotin. Lab Interpretation Normal (test code = 35804-7) [facility] [id number] 13:57:36 Test Item Value Reference Range Interpretation Comments NT-proBNP (test code 3560 pg/mL See_Comment H [Autom ated = 4201664742) message] The system which generated this result transmitted reference range : <=450. The reference range was not used to interpret this result as normal/abnormal . LUZ (test code = LUZ) Biotin has been reported to cause a negative bias, interpret results relative to patient's use of biotin. Lab Interpretation Abnormal (test code = 02312-2) [facility] GLUCOSE (AUTOMATED)2021-11-20 12:56:09 Test Item Value Reference Range Interpretation Comments POCT GLU (test code = 5948348323) 258 mg/dL 70-110 H Lab Interpretation (test code = Abnormal 08874-8) [facility] METABOLIC PANEL (NA, K, CL, CO2, GLUCOSE, BUN, CREATININE, CA)2021-11-20 11:53:23 Test Item Value Reference Range Interpretation Comments NA (test code = 137 mmol/L 135-145 5541977710) K (test code = 4.4 mmol/L 3.5-5.0 4868076981) CL (test code = 100 mmol/L 98-108 8397685505) CO2 TOTAL (test code = 27 mmol/L 23-31 6018049412) AGAP (test code = 2-16 1957692079) BUN (test code = 35 mg/dL 7-23 H 6006056444) GLUCOSE (test code = 258 mg/dL 70-110 H 6356728116) CREATININE (test code = 1.01 mg/dL 0.60-1.25 2343348260) CALCIUM (test code = 8.7 mg/dL 8.6-10.6 8847104636) eGFR (test code = mL/min/1.73m2 6530178212) LUZ (test code = LUZ) Association of [...] tests). Lab Interpretation Abnormal (test code = 43131-2) [facility]20[facility]29 11:53:23 Test Item Value Reference Range Interpretation Comments MAGNESIUM (test code = 3642537934) 2.3 mg/dL 1.7-2.4 Lab Interpretation (test code = Normal 83331-0) [facility] GLUCOSE (AUTOMATED)2021-11-20 02:00:42 Test Item Value Reference Range Interpretation Comments POCT GLU (test code = 1704870622) 211 mg/dL 70-110 H Lab Interpretation (test code = Abnormal 90606-3) [facility] GLUCOSE (AUTOMATED)2021-11-19 21:24:48 Test Item Value Reference Range Interpretation Comments POCT GLU (test code = 1038687328) 108 mg/dL 70-110 Lab Interpretation (test code = Normal 72362-4) [facility] GLUCOSE (AUTOMATED)2021-11-19 17:25:06 Test Item Value Reference Range Interpretation Comments POCT GLU (test code = 8706994229) 78 mg/dL 70-110 Lab Interpretation (test code = Normal 85940-7) [facility] GLUCOSE (AUTOMATED)2021-11-19 16:10:23 Test Item Value Reference Range Interpretation Comments POCT GLU (test code = 0604314982) 115 mg/dL 70-110 H Lab Interpretation (test code = Abnormal 23413-5) [facility] [id number] 15:26:09 Test Item Value Reference Range Interpretation Comments CRP (test code = 3622779303) 1.2 mg/dL <0.8 H Lab Interpretation (test code = Abnormal 28531-2) [facility] WITH [id number] 14:10:50 Test Item Value Reference Range Interpretation [...] (test code = 52.5 fL 38.5-51.6 H 38464-0) RDW-CV (test code = 17.7 % 12.1-15.4 H 788-0) PLT (test code = See_Comment [Automated 777-3) message] The system which generated this result transmitted reference range : 150 - 328 10*3/?L. The reference range was not used to interpret this result as normal/abnormal . MPV (test code = 10.0 fL 9.8-13.0 04299-0) NRBC/100 WBC (test See_Comment [Automat ed code = 7616593688) message] The system which generated this result transmitted reference range : 0.0 - 10.0 /100 WBCs. The reference range was not used to interpret this result as normal/abnormal . NRBC x10^3 (test code <0.01 See_Comment [Auto mated = 1654026066) message] The system which generated this result transmitted reference range : 10*3/?L. The reference range was not used to interpret this result as normal/abnormal . GRAN MAT (NEUT) % 63.4 % (test code = 770-8) IMM GRAN % (test code 0.70 % = 6388517400) LYMPH % (test code = 12.6 % 736-9) MONO % (test code = 18.9 % 5905-5) EOS % (test code = 3.5 % 713-8) BASO % (test code = 0.9 % 706-2) GRAN MAT x10^3(ANC) 2.71 10*3/uL 1.99-6.95 (test code = 2969870873) IMM GRAN x10^3 (test 0.03 10*3/uL 0.00-0.06 code = 6392938474) LYMPH x10^3 (test 0.54 10*3/uL 1.09-3.23 L code = 731-0) MONO x10^3 (test code 0.81 10*3/uL 0.36-1.02 = 742-7) EOS x10^3 (test code 0.15 10*3/uL 0.06-0.53 = 711-2) BASO x10^3 (test code 0.04 10*3/uL 0.01-0.09 = 704-7) ELLIPTO/OVAL (test 2+ See_Comment A [Automat ed code = 51238-8) message] The system which generated this result transmitted reference range : (none). The reference range was not used to interpret this result as normal/abnormal . POLYCHROMASIA (test 2+ See_Comment [Automa beatrice code = 73634-1) message] The system which generated this result transmitted reference range : 2+. The referen ce range was not used to interpr et this result as normal/abnormal . BANDS (test code = MARKED INCREASED A 3723767953) Lab Interpretation Abnormal (test code = 15132-1) [facility] [id number] 10:45:11 Test Item Value Reference Range Interpretation Comments URIC ACID (test code = 0412572397) 11.0 mg/dL 3.6-8.0 H Lab Interpretation (test code = Abnormal 28763-2) [facility]cosCREATINE [id number] 10:44:51 Test Item Value Reference Range Interpretation Comments CK (test code = 3095170729) 33 U/L 33-194 Lab Interpretation (test code = Normal 06008-2) [facility]cosTROPONIN [id number] 10:17:49 Test Item Value Reference Interpretation Comments Range TROPONIN I (test 0.039 ng/mL See_Comment H [Automated code = 8632238478) message] The system which generated this result [...] biotin. Lab Interpretation Abnormal (test code = 56022-5) [facility]-TERMINAL [id number] 10:14:27 Test Item Value Reference Range Interpretation Comments NT-proBNP (test code 3970 pg/mL See_Comment H [Autom ated = 8834746200) message] The system which generated this result transmitted reference range : <=450. The reference range was not used to interpret this result as normal/abnormal . LUZ (test code = LUZ) Biotin has been reported to cause a negative bias, interpret results relative to patient's use of biotin. Lab Interpretation Abnormal (test code = 20712-0) [facility]. METABOLIC PANEL (23500)2021-11-19 10:06:07 Test Item Value Reference Range Interpretation Comments NA (test code = 136 mmol/L 135-145 7149767052) K (test code = 4.2 mmol/L 3.5-5.0 7643686753) CL (test code = 99 mmol/L 98-108 3910668792) CO2 TOTAL (test code = 25 mmol/L 23-31 9548857729) AGAP (test code = 2-16 7168163200) BUN (test code = 32 mg/dL 7-23 H 9893661456) GLUCOSE (test code = 75 mg/dL 70-110 6598548298) CREATININE (test code = 1.29 mg/dL 0.60-1.25 H 3310170086) TOTAL BILI (test code = 0.5 mg/dL 0.1-1.4 9826814945) CALCIUM (test code = 8.5 mg/dL 8.6-10.6 L 0923569199) T PROTEIN (test code = 6.7 g/dL 6.3-8.2 6323447072) ALBUMIN (test code = 3.8 g/dL 3.5-5.0 0745754772) ALK PHOS (test code = 75 U/L 34-122 2720234587) ALTv (test code = 9 U/L 5-50 1742-6) AST(SGOT) (test code = 17 U/L 13-40 2068942650) eGFR (test code = mL/min/1.73m2 9042971918) LUZ (test code = LUZ) Association of [...] tests). Lab Interpretation Abnormal (test code = 84775-3) [facility]2022-[facility]-28 10:06:07 Test Item Value Reference Range Interpretation Comments MAGNESIUM (test code = 6166617139) 2.1 mg/dL 1.7-2.4 Lab Interpretation (test code = Normal 13500-6) [facility]PHOSPHORUS2022-06-28 10:05:47 Test Item Value Reference Range Interpretation Comments PHOSPHORUS (test code = 5754115441) 4.3 mg/dL 2.5-5.0 Lab Interpretation (test code = Normal 73655-5) [facility]cosLACTATE [id number] 04:25:54 Test Item Value Reference Range Interpretation Comments LDH (test code = 1657659356) 321 U/L 300-600 Lab Interpretation (test code = Normal 44097-2) [facility]TROPONIN [id number] 01:07:32 Test Item Value Reference Interpretation Comments Range TROPONIN I (test 0.019 ng/mL See_Comment [Automated code = 3019254644) message] The system which generated this result [...] biotin. Lab Interpretation Normal (test code = 99509-0) [facility]cosPROCALCITONIN2022-06-27 21:13:39 Test Item Value Reference Range Interpretation Comments Procalcitonin (test 0.05 ng/mL <0.07 code = 1076389848) LUZ (test code = LUZ) INTERPRETATION OF [...] lung abscess/empyema. For further information please refer to:[email or web address] Lab Interpretation Normal (test code = 10608-1) [facility]VITAMIN B12, [id number] 20:59:39 Test Item Value Reference Range Interpretation Comments VIT B12 (test code = 224 pg/mL 240-930 L 1013419773) LUZ (test code = LUZ) Biotin has been reported to cause a positive bias, interpret results relative to patient's use of biotin. Lab Interpretation (test Abnormal code = 30927-1) [facility] D, [id number] 20:58:17 Test Item Value Reference Range Interpretation Comments VIT D 25OH (test code = 20 ng/mL 25-80 L 27416-0) LUZ (test code = LUZ) Deficiency: <20 ng/mLInsufficiency: 20-24 ng/mLOptimal: 25-80 ng/mL Lab Interpretation (test Abnormal code = 09938-5) [facility]TROPONIN [id number] 18:33:52 Test Item Value Reference Interpretation Comments Range TROPONIN I (test 0.024 ng/mL See_Comment [Automated code = 9790723188) message] The system which generated this result [...] biotin. Lab Interpretation Normal (test code = 16870-9) [facility]TROPONIN [id number] 16:46:44 Test Item Value Reference Interpretation Comments Range TROPONIN I (test 0.027 ng/mL See_Comment [Automated code = 7339237415) message] The system which generated this result [...] biotin. Lab Interpretation Normal (test code = 58366-2) [facility]cosCREATINE [id number] 16:34:19 Test Item Value Reference Range Interpretation Comments CK (test code = 5548530575) 21 U/L 33-194 L Lab Interpretation (test code = Abnormal 10822-5) [facility] MarcosD-[id number] 15:18:30 Test Item Value Reference Interpretation Comments Range D-DIMER (test code = See_Comment H [Autom ated 4493210651) message] The system which generated this result [...] diagnosis. Lab Interpretation Abnormal (test code = 72725-2) [facility] MarcosProthrombin Time / [id number] 15:14:12 Test Item Value Reference Range Interpretation Comments PROTIME PATIENT (test See_Comment H [Auto mated message] code = 5964-2) The system [employer] generated this result transmitted ref erence range: 12.0 - 1 4.7 Seconds. The reference range was not used to int erpret this result as normal/abnormal . INR (test code = 6301-6) Nor mal INR <1.1; Warfarin Therap eutic range 2.0 to 3. 0 or 2.5 to 3.5, dep ending upon the indica tions. Lab Interpretation (test Abnormal code = 86817-7) [facility]cosTHYROID STIMULATING [id number] 15:07:08 Test Item Value Reference Range Interpretation Comments TSH (test code = See_Comment [Automated message] 6585306584) The system [employer] generated this result transmitted ref erence range: 0.45 - 4 .70 mIU/L. The refe rence range was not u sed to interpret this result as normal/abnor mal. Lab Interpretation (test Normal code = 49835-2) [facility] MarcosLIPID PANEL (00058)(TOTAL CHOLESTEROL, TRIGLYCERIDES, HDL)2021-11-18 14:47:08 Test Item Value Reference Range Interpretation Comments CHOL (test code = 87 mg/dL 120-200 L 0417165228) HDL (test code = 25 mg/dL >40 L 6423024619) HDLC RATIO (test code = See_Comment [Au tomated message] 8438891268) The system [employer] generated this result transmit beatrice reference range : <=5.0. The refe rence range was not u sed to interpret th is result as normal/abnormal . TRIG (test code = 116 mg/dL 30-170 4201392809) LDL CHOL (test code = 39 mg/dL See_Comment [Auto mated message] 24708-6) The system [employer] generated this result transmit beatrice reference range : <=160. The refe rence range was not u sed to interpret th is result as normal/abnormal . VLDL (test code = 23 mg/dL 5-60 0384833480) Lab Interpretation (test Abnormal code = 76657-7) [facility]cosIRON [id number] 14:40:28 Test Item Value Reference Range Interpretation Comments IRON (test code = 7357465969) 44 ug/dL 50-160 L TIBC (test code = 9262474025) 420 ug/dL 250-410 H % FE SAT (test code = 8513144532) 10 % 20-50 L Lab Interpretation (test code = Abnormal 46753-3) [facility]cosDIGOXIN2022-06-27 14:34:06 Test Item Value Reference Range Interpretation Comments DIGOXIN (test code = 0.9 ng/mL 0.8-1.6 1285846312) LUZ (test code = LUZ) Arrythmias: ?1.5 - 2.0 ng/mLToxic Range: ? Greater than or equal to 2.4 ng/mL Lab Interpretation (test Normal code = 30937-3) [facility]URIC [id number] 14:33:51 Test Item Value Reference Range Interpretation Comments URIC ACID (test code = 9064948146) 10.0 mg/dL 3.6-8.0 H Lab Interpretation (test code = Abnormal 63586-8) [facility]PHOSPHORUS2022-06-27 14:33:51 Test Item Value Reference Range Interpretation Comments PHOSPHORUS (test code = 6783212780) 4.0 mg/dL 2.5-5.0 Lab Interpretation (test code = Normal 64461-0) [facility]cosGLYCOSYLATED HEMOGLOBIN (A1C)2021-11-18 14:13:22 Test Item Value Reference Range Interpretation Comments HGB A1C (test code = 7.6 % 4.0-5.7 H 4548-4) LUZ (test code = LUZ) Reference RangesNormal: <5.7%Prediabetes: 5.7 - 6.4%Diabetes: > 6.5% Lab Interpretation (test Abnormal code = 28583-7) [facility] [place] [id number] 12:52:47 Test Item Value Reference Range Interpretation Comments ESR (test code = See_Comment H [Automated message] 8500317780) The system [employer] generated this result transmitted ref erence range: 0 - 10 m m/HR. The reference r stephanie was not used to interpret this result as normal/abnor mal. Lab Interpretation (test Abnormal code = 03822-2) [facility] [place] [id number] 11:02:13 Test Item Value Reference Interpretation Comments Range TROPONIN I (test 0.021 ng/mL See_Comment [Automated code = 6651038567) message] The system which generated this result [...] biotin. Lab Interpretation Normal (test code = 88015-7) [facility] [place] [id number] 10:58:54 Test Item Value Reference Range Interpretation Comments NT-proBNP (test code 2210 pg/mL See_Comment H [Autom ated = 5035281064) message] The system which generated this result transmitted reference range : <=450. The reference range was not used to interpret this result as normal/abnormal . LUZ (test code = LUZ) Biotin has been reported to cause a negative bias, interpret results relative to patient's use of biotin. Lab Interpretation Abnormal (test code = 23075-2) [facility] [place]UM2022-06-27 10:50:36 Test Item Value Reference Range Interpretation Comments MAGNESIUM (test code = 3153748104) 1.8 mg/dL 1.7-2.4 Lab Interpretation (test code = Normal 34775-2) [facility] [place]. METABOLIC PANEL (37471)2021-11-18 10:50:16 Test Item Value Reference Range Interpretation Comments NA (test code = 136 mmol/L 135-145 6261342972) K (test code = 4.8 mmol/L 3.5-5.0 4953835028) CL (test code = 98 mmol/L 98-108 2918906267) CO2 TOTAL (test code = 24 mmol/L 23-31 4105710454) AGAP (test code = 2-16 5904107550) BUN (test code = 33 mg/dL 7-23 H 4194472217) GLUCOSE (test code = 119 mg/dL 70-110 H 6065287048) CREATININE (test code = 1.35 mg/dL 0.60-1.25 H 9487417822) TOTAL BILI (test code = 0.6 mg/dL 0.1-1.4 2700379282) CALCIUM (test code = 9.6 mg/dL 8.6-10.6 1085120246) T PROTEIN (test code = 7.3 g/dL 6.3-8.2 9292552877) ALBUMIN (test code = 4.4 g/dL 3.5-5.0 8139672133) ALK PHOS (test code = 85 U/L 34-122 3262693600) ALTv (test code = 11 U/L 5-50 1742-6) AST(SGOT) (test code = 15 U/L 13-40 6193593040) eGFR (test code = mL/min/1.73m2 7798573350) LUZ (test code = LUZ) Association of [...] tests). Lab Interpretation Abnormal (test code = 35412-9) [facility] [place]L[facility]2022-[facility]-27 10:50:16 Test Item Value Reference Range Interpretation Comments LIPASE (test code = 0841550627) 26 U/L 0-220 Lab Interpretation (test code = Normal 60977-7) [facility] [place]cosLactic Acid Whole [id number] 10:44:04 Test Item Value Reference Range Interpretation Comments LACTIC ACID (test code = 1.98 mmol/L 0.50-2.20 5803774170) Lab Interpretation (test code = Normal 01213-7) [facility] [place]CB WITH [id number] 10:38:32 Test Item Value Reference Range Interpretation [...] (test code = 52.0 fL 38.5-51.6 H 64086-7) RDW-CV (test code = 17.3 % 12.1-15.4 H 788-0) PLT (test code = See_Comment [Automated 777-3) message] The sy stem which generated this result transmitted reference range : 150 - 328 10*3/ ?L. The reference r stephanie was not used to interpret this result as normal/abnormal . MPV (test code = 9.6 fL 9.8-13.0 L 28631-2) NRBC/100 WBC (test See_Comment [Automat ed code = 6984999279) message] The system which generated this result transmitted reference range : 0.0 - 10.0 /100 WBCs. The refer ence range was not u sed to interpret th is result as normal/abnormal . NRBC x10^3 (test code <0.01 See_Comment [Auto mated = 1498212756) message] The s ystem which generated this result transmitted reference range : 10*3/?L. The reference range was not used to interpret this result as normal/abnormal . GRAN MAT (NEUT) % 55.3 % (test code = 770-8) IMM GRAN % (test code 0.50 % = 0679563827) LYMPH % (test code = 11.1 % 736-9) MONO % (test code = 15.9 % 5905-5) EOS % (test code = 16.2 % 713-8) BASO % (test code = 1.0 % 706-2) GRAN MAT x10^3(ANC) 3.35 10*3/uL 1.99-6.95 (test code = 1028964909) IMM GRAN x10^3 (test 0.03 10*3/uL 0.00-0.06 code = 1690306618) LYMPH x10^3 (test code 0.67 10*3/uL 1.09-3.23 L = 731-0) MONO x10^3 (test code 0.96 10*3/uL 0.36-1.02 = 742-7) EOS x10^3 (test code = 0.98 10*3/uL 0.06-0.53 H 711-2) BASO x10^3 (test code 0.06 10*3/uL 0.01-0.09 = 704-7) Lab Interpretation Abnormal (test code = 22720-5) [facility] [place]DIGOX[place]2022-04-20 11:24:52 Test Item Value Reference Range Interpretation Comments DIGOXIN (test code = 0.8 ng/mL 0.8-1.6 Slight hemolysis 3317323582) LUZ (test code = LUZ) Arrythmias: ?1.5 - 2.0 ng/mLToxic Range: ? Greater than or equal to 2.4 ng/mL Lab Interpretation Normal (test code = 01926-2) [facility] [place]TR[facility] [id number] 11:14:07 Test Item Value Reference Interpretation Comments Range TROPONIN I (test 0.022 ng/mL See_Comment [Automated code = 4601412699) message] The system which generated this result [...] biotin. Lab Interpretation Normal (test code = 99177-5) [facility] [place]Complete Metabolic [id number] 11:02:47 Test Item Value Reference Range Interpretation Comments NA (test code = 137 mmol/L 135-145 7218197390) K (test code = 5.1 mmol/L 3.5-5.0 H 0654866957) CL (test code = 101 mmol/L 98-108 0039515512) CO2 TOTAL (test code = 19 mmol/L 23-31 L 5305253966) AGAP (test code = 2-16 H 9954064135) BUN (test code = 31 mg/dL 7-23 H 6614182722) GLUCOSE (test code = 276 mg/dL 70-110 H 7398169241) CREATININE (test code = 1.11 mg/dL 0.60-1.25 3944100240) TOTAL BILI (test code = 1.2 mg/dL 0.1-1.1 H 3542746061) CALCIUM (test code = 9.3 mg/dL 8.6-10.6 9442857984) T PROTEIN (test code = 7.8 g/dL 6.3-8.2 2431530446) ALBUMIN (test code = 4.5 g/dL 3.5-5.0 4132681085) ALK PHOS (test code = 97 U/L 34-122 0798634430) ALTv (test code = 14 U/L 5-50 2-6) AST(SGOT) (test code = 32 U/L 13-40 8179105245) eGFR (test code = mL/min/1.73m2 0233802837) LUZ (test code = LUZ) Association of [...] tests). Lab Interpretation Abnormal (test code = 60777-0) [facility] [place]Lipase, [id number] 11:02:26 Test Item Value Reference Range Interpretation Comments LIPASE (test code = 8496453118) 41 U/L 0-220 Lab Interpretation (test code = Normal 49894-7) [facility] [place]CBC with [id number] 10:38:45 Test Item Value Reference Range Interpretation [...] RDW-SD (test code = 46.9 fL 38.5-51.6 75774-7) RDW-CV (test code = 15.8 % 12.1-15.4 H 788-0) PLT (test code = See_Comment H [Automated 777-3) message] The sy stem which generated this result transmitted reference range : 150 - 328 10*3/ ?L. The reference r stephanie was not used to interpret this result as normal/abnormal . MPV (test code = 10.6 fL 9.8-13.0 92733-3) NRBC/100 WBC (test See_Comment [Automat ed code = 1706624891) message] The system which generated this result transmitted reference range : 0.0 - 10.0 /100 WBCs. The refer ence range was not u sed to interpret th is result as normal/abnormal . NRBC x10^3 (test code <0.01 See_Comment [Auto mated = 3086123944) message] The s ystem which generated this result transmitted reference range : 10*3/?L. The reference range was not used to interpret this result as normal/abnormal . GRAN MAT (NEUT) % 75.6 % (test code = 770-8) IMM GRAN % (test code 0.60 % = 0033319097) LYMPH % (test code = 13.2 % 736-9) MONO % (test code = 9.2 % 5905-5) EOS % (test code = 0.9 % 713-8) BASO % (test code = 0.5 % 706-2) GRAN MAT x10^3(ANC) 6.17 10*3/uL 1.99-6.95 (test code = 2614080538) IMM GRAN x10^3 (test 0.05 10*3/uL 0.00-0.06 code = 0160279216) LYMPH x10^3 (test code 1.08 10*3/uL 1.09-3.23 L = 731-0) MONO x10^3 (test code 0.75 10*3/uL 0.36-1.02 = 742-7) EOS x10^3 (test code = 0.07 10*3/uL 0.06-0.53 711-2) BASO x10^3 (test code 0.04 10*3/uL 0.01-0.09 = 704-7) Lab Interpretation Abnormal (test code = 12622-7) [facility] GLUCOSE (AUTOMATED)2021-09-11 10:08:24 Test Item Value Reference Range Interpretation Comments POCT GLU (test code = 3108983466) 273 mg/dL 70-110 H Lab Interpretation (test code = Abnormal 60426-8) [facility] [place]TR[place] [id number] 22:12:38 Test Item Value Reference Interpretation Comments Range TROPONIN I (test 0.012 ng/mL See_Comment [Automated code = 7459372497) message] The system which generated this result [...] biotin. Lab Interpretation Normal (test code = 24395-8) [facility] [place]MINAL [id number] 22:09:20 Test Item Value Reference Range Interpretation Comments NT-proBNP (test code 2740 pg/mL See_Comment H [Autom ated = 2859000843) message] The system which generated this result transmitted reference range : <=450. The reference range was not used to interpret this result as normal/abnormal . LUZ (test code = LUZ) Biotin has been reported to cause a negative bias, interpret results relative to patient's use of biotin. Lab Interpretation Abnormal (test code = 21790-3) [facility] [place]DIGOXIN2022-03-03 22:03:39 Test Item Value Reference Range Interpretation Comments DIGOXIN (test code = 0.8 ng/mL 0.8-1.6 6970193114) LUZ (test code = LUZ) Arrythmias: ?1.5 - 2.0 ng/mLToxic Range: ? Greater than or equal to 2.4 ng/mL Lab Interpretation (test Normal code = 94348-9) [facility] [place]COMP. METABOLIC PANEL (42655)2021-07-25 22:01:19 Test Item Value Reference Range Interpretation Comments NA (test code = 135 mmol/L 135-145 6833551343) K (test code = 4.5 mmol/L 3.5-5.0 2833749054) CL (test code = 97 mmol/L 98-108 L 5998408328) CO2 TOTAL (test code = 26 mmol/L 23-31 9583528093) AGAP (test code = 2-16 7342585626) BUN (test code = 24 mg/dL 7-23 H 5134837074) GLUCOSE (test code = 180 mg/dL 70-110 H 4794391811) CREATININE (test code = 1.12 mg/dL 0.60-1.25 9071750821) TOTAL BILI (test code = 0.9 mg/dL 0.1-1.1 4907241444) CALCIUM (test code = 9.0 mg/dL 8.6-10.6 0726593693) T PROTEIN (test code = 7.6 g/dL 6.3-8.2 9450790383) ALBUMIN (test code = 4.3 g/dL 3.5-5.0 5275339297) ALK PHOS (test code = 111 U/L 34-122 4074233024) ALTv (test code = 13 U/L 5-50 1742-6) AST(SGOT) (test code = 16 U/L 13-40 2713291329) eGFR (test code = mL/min/1.73m2 7685623108) LUZ (test code = LUZ) Association of [...] tests). Lab Interpretation Abnormal (test code = 54892-4) [facility] [place]2022-03-03 22:01:19 Test Item Value Reference Range Interpretation Comments MAGNESIUM (test code = 4061061877) 2.0 mg/dL 1.7-2.4 Lab Interpretation (test code = Normal 93670-8) [facility] [place]2022-[facility]-03 22:00:53 Test Item Value Reference Range Interpretation Comments LIPASE (test code = 8354335955) 38 U/L 0-220 Lab Interpretation (test code = Normal 22868-2) [facility] [place]CB WITH [id number] 21:49:30 Test Item Value Reference Range Interpretation Comments WBC (test code = See_Comment [Automated 5090-2) message] The sy stem which generated this result transmitted reference range : 4.20 - 10.70 10*3/?L. The reference range was not used to interpret this result as normal/abnormal . RBC (test code = See_Comment L [Automated 289-8) message] The sy stem which generated this [...] RDW-SD (test code = 49.0 fL 38.5-51.6 81690-1) RDW-CV (test code = 15.9 % 12.1-15.4 H 788-0) PLT (test code = See_Comment H [Automated 777-3) message] The sy stem which generated this result transmitted reference range : 150 - 328 10*3/ ?L. The reference r stephanie was not used to interpret this result as normal/abnormal . MPV (test code = 10.1 fL 9.8-13.0 94970-4) NRBC/100 WBC (test See_Comment [Automat ed code = 2452559953) message] The system which generated this result transmitted reference range : 0.0 - 10.0 /100 WBCs. The refer ence range was not u sed to interpret th is result as normal/abnormal . NRBC x10^3 (test code <0.01 See_Comment [Auto mated = 0320254932) message] The s ystem which generated this result transmitted reference range : 10*3/?L. The reference range was not used to interpret this result as normal/abnormal . GRAN MAT (NEUT) % 75.3 % (test code = 770-8) IMM GRAN % (test code 0.50 % = 6350118612) LYMPH % (test code = 14.0 % 736-9) MONO % (test code = 8.2 % 5905-5) EOS % (test code = 1.2 % 713-8) BASO % (test code = 0.8 % 706-2) GRAN MAT x10^3(ANC) 5.49 10*3/uL 1.99-6.95 (test code = 0931142405) IMM GRAN x10^3 (test 0.04 10*3/uL 0.00-0.06 code = 9899413676) LYMPH x10^3 (test code 1.02 10*3/uL 1.09-3.23 L = 731-0) MONO x10^3 (test code 0.60 10*3/uL 0.36-1.02 = 742-7) EOS x10^3 (test code = 0.09 10*3/uL 0.06-0.53 711-2) BASO x10^3 (test code 0.06 10*3/uL 0.01-0.09 = 704-7) Lab Interpretation Abnormal (test code = 43071-6) [facility] [place]2021-07-25 21:34:24 Test Item Value Reference Range Interpretation Comments POCT GLU (test code = 6179301640) 177 mg/dL 70-110 H Lab Interpretation (test code = Abnormal 23425-6) [facility] [place]TR[facility] [id number] 02:26:02 Test Item Value Reference Interpretation Comments Range TROPONIN I (test 0.014 ng/mL See_Comment [Automated code = 9464487899) message] The system which generated this result [...] biotin. Lab Interpretation Normal (test code = 19842-7) [facility]. METABOLIC PANEL (62910)2021-07-13 02:14:42 Test Item Value Reference Range Interpretation Comments NA (test code = 136 mmol/L 135-145 6832488322) K (test code = 4.9 mmol/L 3.5-5.0 4450455454) CL (test code = 102 mmol/L 98-108 2554992233) CO2 TOTAL (test code = 25 mmol/L 23-31 9582415013) AGAP (test code = 2-16 3736580440) BUN (test code = 23 mg/dL 7-23 7613812768) GLUCOSE (test code = 209 mg/dL 70-110 H 4863238091) CREATININE (test code = 0.95 mg/dL 0.60-1.25 4321339925) TOTAL BILI (test code = 1.3 mg/dL 0.1-1.1 H 9645851714) CALCIUM (test code = 8.9 mg/dL 8.6-10.6 5243422526) T PROTEIN (test code = 7.9 g/dL 6.3-8.2 9717473569) ALBUMIN (test code = 4.5 g/dL 3.5-5.0 6058565443) ALK PHOS (test code = 115 U/L 34-122 9837922254) ALTv (test code = 13 U/L 5-50 1742-6) AST(SGOT) (test code = 17 U/L 13-40 3661750967) eGFR (test code = mL/min/1.73m2 8594318686) LUZ (test code = LUZ) Association of [...] tests). Lab Interpretation Abnormal (test code = 79779-7) [facility] [place]2022-[facility]-19 02:14:01 Test Item Value Reference Range Interpretation Comments LIPASE (test code = 8911931374) 32 U/L 0-220 Lab Interpretation (test code = Normal 37558-6) [facility] [place] WITH [id number] 02:10:20 Test Item Value Reference Range Interpretation [...] RDW-SD (test code = 50.7 fL 38.5-51.6 42451-0) RDW-CV (test code = 16.4 % 12.1-15.4 H 788-0) PLT (test code = See_Comment H [Automated 777-3) message] The sy stem which generated this result transmitted reference range : 150 - 328 10*3/ ?L. The reference r stephanie was not used to interpret this result as normal/abnormal . MPV (test code = 10.6 fL 9.8-13.0 86124-8) NRBC/100 WBC (test See_Comment [Automat ed code = 4728732633) message] The system which generated this result transmitted reference range : 0.0 - 10.0 /100 WBCs. The refer ence range was not u sed to interpret th is result as normal/abnormal . NRBC x10^3 (test code <0.01 See_Comment [Auto mated = 9837611685) message] The s ystem which generated this result transmitted reference range : 10*3/?L. The reference range was not used to interpret this result as normal/abnormal . GRAN MAT (NEUT) % 77.0 % (test code = 770-8) IMM GRAN % (test code 0.80 % = 3081494113) LYMPH % (test code = 10.6 % 736-9) MONO % (test code = 9.7 % 5905-5) EOS % (test code = 1.2 % 713-8) BASO % (test code = 0.7 % 706-2) GRAN MAT x10^3(ANC) 5.86 10*3/uL 1.99-6.95 (test code = 1810049679) IMM GRAN x10^3 (test 0.06 10*3/uL 0.00-0.06 code = 8510726706) LYMPH x10^3 (test code 0.81 10*3/uL 1.09-3.23 L = 731-0) MONO x10^3 (test code 0.74 10*3/uL 0.36-1.02 = 742-7) EOS x10^3 (test code = 0.09 10*3/uL 0.06-0.53 711-2) BASO x10^3 (test code 0.05 10*3/uL 0.01-0.09 = 704-7) Lab Interpretation Abnormal (test code = 16344-4) [facility] [place]2021-02-26 21:45:11 Test Item Value Reference Range Interpretation Comments POCT GLU (test code = 1916070146) 220 mg/dL 70-110 H Lab Interpretation (test code = Abnormal 28550-1) [facility] [place]TROPONIN [id number] 18:34:03 Test Item Value Reference Interpretation Comments Range TROPONIN I (test 0.016 ng/mL See_Comment [Automated code = 6508468793) message] The system which generated this result [...] biotin. Lab Interpretation Normal (test code = 09224-8) [facility] [place]2021-02-26 16:33:16 Test Item Value Reference Range Interpretation Comments POCT GLU (test code = 8394737199) 169 mg/dL 70-110 H Lab Interpretation (test code = Abnormal 83476-5) [facility] [place]cosTHYROID STIMULATING [id number] 14:20:21 Test Item Value Reference Range Interpretation Comments TSH (test code = See_Comment [Automated message] 3142172006) The system [employer] generated this result transmitted ref erence range: 0.45 - 4 .70 mIU/L. The refe rence range was not u sed to interpret this result as normal/abnor mal. Lab Interpretation (test Normal code = 58215-3) [facility] [place]TR[facility] [id number] 14:01:59 Test Item Value Reference Interpretation Comments Range TROPONIN I (test 0.023 ng/mL See_Comment [Automated code = 9008426002) message] The system which generated this result [...] biotin. Lab Interpretation Normal (test code = 42239-3) [facility] [place]cosN-TERMINAL [id number] 13:58:56 Test Item Value Reference Range Interpretation Comments NT-proBNP (test code 1100 pg/mL See_Comment H [Autom ated = 2425236633) message] The system which generated this result transmitted reference range : <=450. The reference range was not used to interpret this result as normal/abnormal . LUZ (test code = LUZ) Biotin has been reported to cause a negative bias, interpret results relative to patient's use of biotin. Lab Interpretation Abnormal (test code = 48372-6) [facility] [place]cosGlycosylated Hemoglobin (A1C)2021-02-26 13:27:52 Test Item Value Reference Range Interpretation Comments HGB A1C (test code = 8.1 % 4.0-5.7 H 4548-4) LUZ (test code = LUZ) Reference RangesNormal: <5.7%Prediabetes: 5.7 - 6.4%Diabetes: > 6.5% Lab Interpretation (test Abnormal code = 37248-4) [facility] GLUCOSE (AUTOMATED)2021-02-26 13:15:49 Test Item Value Reference Range Interpretation Comments POCT GLU (test code = 2942822850) 209 mg/dL 70-110 H Lab Interpretation (test code = Abnormal 46852-5) [facility] GLUCOSE (AUTOMATED)2021-02-26 13:15:49 Test Item Value Reference Range Interpretation Comments POCT GLU (test code = 1471937496) 111 mg/dL 70-110 H Lab Interpretation (test code = Abnormal 02655-1) [facility] [place]cosMagnesium [id number] 11:27:09 Test Item Value Reference Range Interpretation Comments MAGNESIUM (test code = 1279460528) 1.7 mg/dL 1.7-2.4 Lab Interpretation (test code = Normal 37569-1) [facility] (NA, K, CL, CO2, GLUCOSE, BUN, CREATININE, CA)2021-02-26 11:26:44 Test Item Value Reference Range Interpretation Comments NA (test code = 137 mmol/L 135-145 6428802941) K (test code = 5.3 mmol/L 3.5-5.0 H 1171951009) CL (test code = 101 mmol/L 98-108 2934384248) CO2 TOTAL (test code = 25 mmol/L 23-31 9741249219) AGAP (test code = 2-16 4646315078) BUN (test code = 37 mg/dL 7-23 H 7611209745) GLUCOSE (test code = 153 mg/dL 70-110 H 0921593543) CREATININE (test code = 1.26 mg/dL 0.60-1.25 H 6231128324) CALCIUM (test code = 10.3 mg/dL 8.6-10.6 2228407865) eGFR (test code = mL/min/1.73m2 8069160727) LUZ (test code = LUZ) Association of [...] tests). Lab Interpretation Abnormal (test code = 37714-3) [facility] with Fnfdbricbwqh0965-72-46 10:10:58 Test Item Value Reference Range Interpretation [...] RDW-SD (test code = 50.6 fL 38.5-51.6 78729-3) RDW-CV (test code = 16.1 % 12.1-15.4 H 788-0) PLT (test code = See_Comment [Automated 777-3) message] The sy stem which generated this result transmitted reference range : 150 - 328 10*3/ ?L. The reference r stephanie was not used to interpret this result as normal/abnormal . MPV (test code = 10.2 fL 9.8-13.0 76522-5) NRBC/100 WBC (test See_Comment [Automat ed code = 7670841421) message] The system which generated this result transmitted reference range : 0.0 - 10.0 /100 WBCs. The refer ence range was not u sed to interpret th is result as normal/abnormal . NRBC x10^3 (test code <0.01 See_Comment [Auto mated = 4462539250) message] The s ystem which generated this result transmitted reference range : 10*3/?L. The reference range was not used to interpret this result as normal/abnormal . GRAN MAT (NEUT) % 58.5 % (test code = 770-8) IMM GRAN % (test code 0.40 % = 8671879810) LYMPH % (test code = 22.8 % 736-9) MONO % (test code = 13.4 % 5905-5) EOS % (test code = 4.2 % 713-8) BASO % (test code = 0.7 % 706-2) GRAN MAT x10^3(ANC) 4.20 10*3/uL 1.99-6.95 (test code = 1579972061) IMM GRAN x10^3 (test 0.03 10*3/uL 0.00-0.06 code = 1306223185) LYMPH x10^3 (test code 1.64 10*3/uL 1.09-3.23 = 731-0) MONO x10^3 (test code 0.96 10*3/uL 0.36-1.02 = 742-7) EOS x10^3 (test code = 0.30 10*3/uL 0.06-0.53 711-2) BASO x10^3 (test code 0.05 10*3/uL 0.01-0.09 = 704-7) Lab Interpretation Abnormal (test code = 46851-0) [facility] METABOLIC PANEL (NA, K, CL, CO2, GLUCOSE, BUN, CREATININE, CA)2021-02-26 06:10:25 Test Item Value Reference Range Interpretation Comments NA (test code = 135 mmol/L 135-145 0725559238) K (test code = 6.2 mmol/L 3.5-5.0 HH 2404695072) CL (test code = 102 mmol/L 98-108 9514759413) CO2 TOTAL (test code = 22 mmol/L 23-31 L 5195333601) AGAP (test code = 2-16 1324548628) BUN (test code = 39 mg/dL 7-23 H 4267630167) GLUCOSE (test code = 157 mg/dL 70-110 H 0742376892) CREATININE (test code = 1.17 mg/dL 0.60-1.25 0856726671) CALCIUM (test code = 10.1 mg/dL 8.6-10.6 5726055561) eGFR (test code = mL/min/1.73m2 4524329220) LUZ (test code = LUZ) Association of [...] tests). Lab Interpretation Abnormal (test code = 76800-6) [facility] [place]2021-02-26 00:45:44 Test Item Value Reference Range Interpretation Comments POCT GLU (test code = 6572277765) 183 mg/dL 70-110 H Lab Interpretation (test code = Abnormal 46435-3) [facility] [place]TROPONIN [id number] 19:47:30 Test Item Value Reference Interpretation Comments Range TROPONIN I (test 0.011 ng/mL See_Comment [Automated code = 9624388090) message] The system which generated this result [...] biotin. Lab Interpretation Normal (test code = 74658-2) [facility]cosACTIV[facility] PARTIAL THRMPLAS [id number] 19:44:49 Test Item Value Reference Range Interpretation Comments APTT Patient (test See_Comment [Automat ed code = 3173-2) message] The system which generated this result transmitted reference range : 23 - 38 Seconds . The reference range was not used to interpr et this result as normal/abnormal . LUZ (test code = LUZ) The [facility] patient population mean normal value for aPTT is 30 seconds. Lab Interpretation Normal (test code = 49364-4) [facility] [id number] 19:44:08 Test Item Value Reference Range Interpretation Comments NT-proBNP (test code 1030 pg/mL See_Comment H [Autom ated = [id number]) message] The system which generated this result transmitted reference range : <=450. The reference range was not used to interpret this result as normal/abnormal . LUZ (test code = LUZ) Biotin has been reported to cause a negative bias, interpret results relative to patient's use of biotin. Lab Interpretation Abnormal (test code = 06502-4) [facility]PROTHROM[facility] / [id number] 19:41:44 Test Item Value Reference Range Interpretation [...] tions. Lab Interpretation (test Abnormal code = 45184-1) [facility]DIGOXIN2021-10-04 19:38:22 Test Item Value Reference Range Interpretation Comments DIGOXIN (test code = 1.1 ng/mL 0.8-1.6 4124658090) LUZ (test code = LUZ) Arrythmias: ?1.5 - 2.0 ng/mLToxic Range: ? Greater than or equal to 2.4 ng/mL Lab Interpretation (test Normal code = 10640-8) [facility]UM2021-10-04 19:36:04 Test Item Value Reference Range Interpretation Comments MAGNESIUM (test code = 5780633344) 1.7 mg/dL 1.7-2.4 Lab Interpretation (test code = Normal 02091-1) [facility]COM. METABOLIC PANEL (27876)2021-02-25 19:36:03 Test Item Value Reference Range Interpretation Comments NA (test code = 136 mmol/L 135-145 5968070864) K (test code = 6.0 mmol/L 3.5-5.0 H 7727089336) CL (test code = 104 mmol/L 98-108 3709251456) CO2 TOTAL (test code = 22 mmol/L 23-31 L 8983415665) AGAP (test code = 2-16 5842165155) BUN (test code = 35 mg/dL 7-23 H 2943903570) GLUCOSE (test code = 183 mg/dL 70-110 H 9975741455) CREATININE (test code = 1.15 mg/dL 0.60-1.25 3420706647) TOTAL BILI (test code = 0.6 mg/dL 0.1-1.4 5482838670) CALCIUM (test code = 10.0 mg/dL 8.6-10.6 5342438962) T PROTEIN (test code = 7.6 g/dL 6.3-8.2 9098769046) ALBUMIN (test code = 4.4 g/dL 3.5-5.0 1897994988) ALK PHOS (test code = 99 U/L 34-122 1790532136) ALTv (test code = 16 U/L 5-50 1742-6) AST(SGOT) (test code = 19 U/L 13-40 5057195005) eGFR (test code = mL/min/1.73m2 2004470299) LUZ (test code = LUZ) Association of [...] tests). Lab Interpretation Abnormal (test code = 23735-9) [facility] WITH [id number] 19:23:22 Test Item Value Reference Range Interpretation [...] RDW-SD (test code = 49.9 fL 38.5-51.6 22098-0) RDW-CV (test code = 15.9 % 12.1-15.4 H 788-0) PLT (test code = See_Comment [Automated 777-3) message] The sy stem which generated this result transmitted reference range : 150 - 328 10*3/ ?L. The reference r stephanie was not used to interpret this result as normal/abnormal . MPV (test code = 10.0 fL 9.8-13.0 09360-3) NRBC/100 WBC (test See_Comment [Automat ed code = 8544169899) message] The system which generated this result transmitted reference range : 0.0 - 10.0 /100 WBCs. The refer ence range was not u sed to interpret th is result as normal/abnormal . NRBC x10^3 (test code <0.01 See_Comment [Auto mated = 3483659292) message] The s ystem which generated this result transmitted reference range : 10*3/?L. The reference range was not used to interpret this result as normal/abnormal . GRAN MAT (NEUT) % 63.7 % (test code = 770-8) IMM GRAN % (test code 0.50 % = 7623011841) LYMPH % (test code = 21.1 % 736-9) MONO % (test code = 11.2 % 5905-5) EOS % (test code = 2.8 % 713-8) BASO % (test code = 0.7 % 706-2) GRAN MAT x10^3(ANC) 5.20 10*3/uL 1.99-6.95 (test code = 6098120167) IMM GRAN x10^3 (test 0.04 10*3/uL 0.00-0.06 code = 8208658317) LYMPH x10^3 (test code 1.73 10*3/uL 1.09-3.23 = 731-0) MONO x10^3 (test code 0.92 10*3/uL 0.36-1.02 = 742-7) EOS x10^3 (test code = 0.23 10*3/uL 0.06-0.53 711-2) BASO x10^3 (test code 0.06 10*3/uL 0.01-0.09 = 704-7) Lab Interpretation Abnormal (test code = 46074-0) [facility]CT HEAD WO [id number] 20:42:13 No acute intracranial hemorrhage or mass [...] reviewed this study and agree with theabove report.[facility]CT CERVICAL SPINE WO CONTRAST 2020-07-29 20:42:13 No acute intracranial hemorrhage or mass effect. No cervical fracture or subluxation. Degenerative changes. Partially visualized layering right-sided pleural effusion. 1.6 cm leftthyroid lobe nodule, correlate with thyroid ultrasound on a non emergentbasis if not already performed. Preliminary ReportDictated by Resident: Mani Kim ?MD. Tk, have [...] reviewed this study and agree with theabove report.[facility]cosCyt Pleural [id number] 00:48:00 Test Item Value Reference Range Interpretation Comments Case Report (test code Non-Gynecologic = 7946594926) Cytology ?Case: [id number] ?Authorizing Provider: ?Garett Armas MD ? Collected: ? 06/28/2020 1351 ?Ordering Location: ? ? [facility] Medicine Surgery Unit ?Received: ?06/28/2020 1416 ?Specimen: ? ?PLEURAL, RIGHT, EFFUSION ? Final Diagnosis (test y9yzrYYsDGPjh9axEFQnwJ code = 5759152112) FuZzEwMzNcZnRuYmpcdWMx NZqfdcHvNEhpz2XvU7MvAo AwMFxhbnNpXGRlZmxhbmcx QXQiNCA3emWlBSKgKFqaJP EiXYipCu8eaVLvfVgvDzIg DRBau3tvnlUKrdmjqRr9d7 qbQVOxCyS7pXVvQNlfP5mm duOolDZfOZKwWSc0nX89IK EyfQ9gtIRcYOzoczGpMfN0 VJhzPOFyEtX5FBVdvDFuWJ TzQ0yiHIReOHxkZCMeJThw oBLiTHL8POHjPRO5NOkyae GpxnO7JAcpwKXcMnF3APu3 s7erbFsmAFVzRDI9j5haOZ rctlZaWK1pxw0bhTt4z8nj czEgRGVmYXVsdCBQYXJhZ3 LndPgcKd2cmVh6mBkjQuln KOL2Jlr5YR2vmq02yxq5uJ pmFNRzyqgyHdZ8TRoeUIWc mkeuLIw0ONerPSNbvYEzDH UjcLUlD7DcVClvEG6vuda5 HdKwSV5uraosLXlvLLYmDN S7RiLkJWJha5QxkibmVoQw xk3cpj74QPU3d0SupAvxEQ O5JLG4FpEoGj3izOJnQONu CJ5jRsCjmGNbOYAgfh67rL muTOchwtTgdG1eHnAuMKYq nKFcZPLlFP5zgBWqEBYeeM 5ucmxjXHBnYnJkcmhlYWRc kTvsomLcIe9jeOtnHVZ6CS bjL0vhjZ4fYlP6XGijM2bo uV6mJXl9XQqrrZI5MRBmwH 7eVP8nbdvxo9fkHNG1EVlu SVGhveS3izJvTWPlcHAmQ5 FzlY03UxAbmTYmI8MpdR3h NDymQCDvafu9ErBlQz5jcN RtpED9ROrgGqafJWanCXNn bmNvbnRccGduZGVjXHBsYW luXHBsYWluXGYwXGZzMjRc tBtinSlraR5eJoKjPhSqMX hdOJ3qKJPqA2byrFLcUDUu DRYjK3mxSiVmbC6rsTbeGL xmczIwXHBhclxwbGFpblxm MVxmczIwXGxhbmcxMDMzXG efW3ykWhLsBXQyxLeyKQgy k9LcLPQqSCQmGmiyszMhIT UdYO8hZCEhWAgmDRPiHFFd MjBcbGFuZzEwMzNcaGljaF adGDfnTyLhPORxYUwkF7xi TwDhV0ShHPFrY4cyqKXrdJ V8N2prhzDwUEBuCUpMNCJN LCBSSUdIVDsgVEhPUkFDRU 5URVNJUyBGTFVJRFxwbGFp blxmMVxmczIwXGxhbmcxMD HwCTdpP3chMbIaBONyjYzz WTisk4DaKTEzYXHwZdcpif IwXGIgOlxwYXIgICAgICAt KUSMFg7GBVTyNO2NWILFUU NTAZ4BPNVGZI0JOM7IUNVA NH2CNJNAW5pbBNGxQVHmFB MxKP8QJO7UWUvKWfTBHDKG RUxMUyBJREVOVElGSUVEIC jZHXYsM46TDWBBMUfphYck rK5aYlRyRhTkQWulXB0eDY YbL2zpzYEhHEIlKZEwK3de CkFulN1vvQljXOdetzUwBG NfpxwsVYUwgXbysT8vCaSr NgIqKpqwSW6aONLgT4vgzT QqQWVjSYGgL4ltXvRmzH5l aFxmMVxjZjJcZnMyMiBGYX OafUItRFGqNFrcTG4ZMxSx VMMqLE3nYDRbXDArUWllHl BBTVxwbGFpblxmMVxmczIw HSlxicqfRZWrUIlqJ2qiJa HfZKOzwAeuSKsve7QlIMGc OFTjYzTifZXxTLXftf37NA J5PoFeo9D8OZWdAdFyHFQh KJ5zsQcuOHMfNX0qTZBlA4 dxyW0fghg3ZdKvTIRtDmL5 TQHredQ5Cbj1VSRcHIwsi7 kjf9EyT5TlbFUrrBa4p4bq XKIeTxQ5hBLbHAvpD5okgx JlnAJaRPRlJIz8kZudDlQy ICGwt1umopOtOpCkVOYeKZ BaCVGsaZxcwoy4aJ28HVZc dE2kdEGbGQkqbyNyBjY9KT poWZIxJwQ6SQGdlDOaGLIl P2nzTFHnQYinIFLzUVxjrB YlGDQ2dFnfu5J3eOFjzVCb uYfcNbAuHtGnSUGOa3DaTK h3iVvgO9WxFFBlZrY0oFBg ZVEeKKwsKEVzUGGvcrN1uS 82KWmetdP2fPMpa5Oaa16h g939cO4fkGZyZQX2YOGeUA CgnOZiIDAkXQP4QRLocVCf S8iyMKIfRE6vuylbAQuuFE xuUYHcmZB7GSFuiOFdJ6Mn YQHvWMiyNDRxfjt3FlWkPj 4xgJEejYsnGXxkx1hcf5mx qTHqJdr9BMWlLuUuTipqMR szb9Wfg4zjULKdsj3sUOS9 xXVnpFgji2N8xFDoFPGwsF FlesAeFHVrBqC3KAvnEH7x nz81BFFkNMB4lm6omAPqrR jptlRkwSWsYIedC6XaYFQg x305AFMzV2RuVXTwy4L3vl OaNjQvNWIbtDD1ybE2ZDSu ULe8pBWeahA2vzUmySGlS8 lmkF7eJKTaER6efmrjk2rl YFbvIGkpAHWnpBU6ywS2ED PhcKBwI6BnnP8uNGUdWFaw WRIvyjg2EcQmHj8jiUHspR cyMFxzYmtwYWdlXHBnbmNv bnRccGduZGVjXHBsYWluXH BsYWluXGYwXGZzMjRccWxc qRotgY1wKmHvMiFoNYtcMG 9dDUUyY4nzjUOnYBCpRRYi Q4tfImEenG0hySsfYDfsHa JcZnMyMFxwYXIgSSBoYXZl OQUheeOcgmHuoVdwrsL8tK D7IVWfBKamNDGhWTFrnLZc iu9qzGgmJLVvZP8cDRHtss AxALoofTvhKRauCZV7PAGq bWVudHMgbWFkZSBieSByZX QnCTAomMRfBOOkjKnju2Yt u3YrxYA5zB1yc8gav4YgXM LktXR7HL67oaV0bI9zPEVd SX8tPXKyZV1gfDByfUIuLV Sgz97mbVdsauIgGKWrcqAm XHBsYWluXGYyXGZzMjhcbG FuZzEwMzNcaGljaFxmMlxk ZhQjTUDfAShsL0taBeRqUr PoNPrnRUF2jF== Final Diagnosis Comment i4lepWXkFILbpOGzZeMmBX (test code = KfQFYsw3lfWGYuzMTrTgCv 9299532155) MzNcZnRuYmpcdWMxXGRlZm Cce8rfo845iINzo6flSQHa GzU2fFKzSGZpfUIiJ438SI PxHPeep1aki3GuREXeoXCi f9K8DPVWbyvbwPf8wMigS9 6ss9U5AcnmE4apKWScITKe E0JxHS6eEVBrTal4KHW5WP D7PBJwIWSdB7MmSV0aLREp gUIcZVo5e3gofPfbDEOkAT E0t4ljVQafzyYcFP4ipe9r cSr7f2ijhhKoXLDyNZRarP HSVHBcQ5WvwXnhBt2pvDs5 xSlkKxdyZHX0Hiu5UK3pbq 81qrv5bYkpCHKpzzasDuF7 OIdpIUWwzvmtVNr3CAugCR NyfBQlEONamDAnC9MjUHzd DW1ulcg7IjOvCW0lipioSZ lzLDLpWVB2RcSjXNLxf0Oa zygqTwBbku1nlk91WWR6g3 BmwRtzSMY6NVM6IxLfDl4d zLBmZQNxAL3tRyBcxSZwUL Nucc93fQvdPGsvapCvdB5l XuUmZQOviSVrBIGqCE7leE IrHDMxtS6ylahkXTQsPoSv okbgBBPlbCpbqjUvPj2lyF ueZSC3WVpmS9yahM5eTyZ8 CEnyU7omdZ2uDIe3BWodgM D1RVGzqY8rGO3wtebsg4tz VXZ3AYynEQQddbG8akXaJT BitIDkK6HisS41JpFedOMr Y2WeuN4aAOwtMHPzdse3Hr XfFb3bjMAkzVC7EAmqTuty YWdlXHBnbmNvbnRccGduZG VjXHBsYWluXHBsYWluXGYw RZYfPmXxqLbfdPwhcA9tQx QpHpXoVGtgKU5oWPTzB2vo mRGrLTWeGTDqV4tuYcOstH 9jhDymPJooxuTzVBU8vQ1t fIgkWPD9FK8evgH8uF8lRW Mof2nbRTIiUPJ9tYEqSO1j v143sOVkvFSpXUXliWyoQD DbbY7tpT9ctSSlmmytsQqh cOnjB1t7FLCcAX6iUJ9zoV lnbmFudCBjZWxscyBhcmUg zIKmfuTwLkopBR8qoTPhrM == Clinical Information Clinical Hx: loculated (test code = right pleural effusion 6086430807) with lung nodules. could be infectoius but also could be malignancy Gross Description (test s6qaaOCqIGNgkYAqSjScWF code = 9566322501) CbFDNnn7zkERIdgJXkLkCr MzNcZnRuYmpcdWMxXGRlZm Zfu6fok042qOLla5eeLXJc TnC6pSQzLQIwcAIcL213g1 kqy6tyuiWmgVY6KVEwMOI3 YWgpfuNzmcO0RSetiKKxId Z4PMhynjLiGHwdabHirxAu Mtl0AQYfA914VEW2bXxdi1 ujQVO5XBHmHGKwAyJvKy6j zCUaG012ZBZoOJKJKUMwaC n2SHNdkdQgncDbtOLUs021 F662t5cyBRNszsKzjNzJyf grc1msS625QZApvBDqfaVx JaWsNFLttWTziQO0OXZnQA 5krdiwHAV6BWnxJDGlxnPy UCDgvSGdO9M1TkEadCTaY5 ZpSEptAHXjvsq8UyXlAh6x pLVqmRH4QNwsa5jys8tmuS RmDoo5ZRCvUxTuTltrNBsr d5Ndv9arVGOghk1rVGI0qU ZjpXnuv7L4iMUjVCObhUVi rlJwRSBvZxT7OGuaSH9mny 07SGYxFUH7lr6ysZFghOgm fkApwIAzHFjkM0SpCWQwm8 47TJIgE9LhRDZqv9Y4tuYq HaLmVDUgpYP1xeN4THJhNU i0qEEyyvU8zsEzhKVmY1wf jV2wQLdaZL8wltknx2izZR Z9EDsuKRXstMX8lzibFVyg RBBzPqF8llStdDGgDUIxlM bzZEhyd064RJK1UeJdAESm d6QyD8CbbVikP10ggYfvP7 2nYPFgyPpfmE5dpWghdM2g ZjBcZnMyNFxxbFxwbGFpbl xmMFxmczIwXGxhbmcxMDMz DOnnY8rpNaBpIEIoxZovVT huc2RuELAbOXVdSvZdLPHg AHOUKKKZLsHeYBKRA4qPQc ZDRD3IQHQAElGHY7gVMSVT VUlEXHBhciBSZWNlaXZlZC CexyPbnYOkwnO7QHIlN5Mk l4AkSJ7tLQSlJyf7ySFlTL BhciBQcmVwYXJlZCAyIHNs aEOsjxPuH8j8p3MjnL5prU IofSJtYGTqr55cEoIyYOBx gHYlh4kwi0lxGH9iEYJhSP VpGJ9dZ13bMO73EIE1MCaa ZWQpXHBhcn0= Embedded Images (test code = 0409428500) [facility] GLUCOSE (AUTOMATED)2020-06-29 22:21:00 Test Item Value Reference Range Interpretation Comments POCT GLU (test code = 2065218024) 301 mg/dL 70-110 H Lab Interpretation (test code = Abnormal 60162-6) [facility] [id number] 18:22:00 Test Item Value Reference Range Interpretation Comments URINE CULTURE (test No aerobic growth (< code = 630-4) 1000 CFU/mL) [facility] GLUCOSE (AUTOMATED)2020-06-29 17:45:00 Test Item Value Reference Range Interpretation Comments POCT GLU (test code = 4941659025) 303 mg/dL 70-110 H Lab Interpretation (test code = Abnormal 69201-1) [facility]cosTROPONIN [id number] 14:20:00 Test Item Value Reference Range Interpretation Comments TROPONIN I (test 0.025 ng/mL See_Comment [Automated code = 0049081346) message] The system which generated this result [...] ? Lab Interpretation Normal (test code = 60286-0) [facility]cosN-TERMINAL [id number] 14:17:00 Test Item Value Reference Range Interpretation Comments NT-proBNP (test code 1220 pg/mL See_Comment H [Autom ated = 7552460256) message] The system which generated this result transmitted reference range : <=450. The reference range was not used to interpret this result as normal/abnormal . LUZ (test code = LUZ) Biotin has been reported to cause a negative bias, interpret results relative to patient's use of biotin. Lab Interpretation Abnormal (test code = 67355-5) [facility]COM. METABOLIC PANEL (42053)2020-06-29 14:08:00 Test Item Value Reference Range Interpretation Comments NA (test code = 135 mmol/L 135-145 3288163098) K (test code = 3.7 mmol/L 3.5-5 2644639773) CL (test code = 93 mmol/L 98-108 L 8368260718) CO2 TOTAL (test code = 31 mmol/L 23-31 3670539522) AGAP (test code = 2-16 7689201662) BUN (test code = 33 mg/dL 7-23 H 4192213205) GLUCOSE (test code = 281 mg/dL 70-110 H 4184725879) CREATININE (test code = 1.46 mg/dL 0.6-1.25 H 8371521729) TOTAL BILI (test code = 1.0 mg/dL 0.1-1.2 9306787272) CALCIUM (test code = 9.1 mg/dL 8.6-10.6 9830630328) T PROTEIN (test code = 7.0 g/dL 6.3-8.2 0664646268) ALBUMIN (test code = 3.9 g/dL 3.5-5 7918617408) ALK PHOS (test code = 65 U/L 34-122 9160831832) ALTv (test code = 9 U/L 5-50 1742-6) AST(SGOT) (test code = 17 U/L 13-40 6486412202) eGFR Calculation mL/min/1.73m2 (Non-) (test code = 8664361243) eGFR Calculation mL/min/1.73m2 () (test code = 6788621842) LUZ (test code = LUZ) Association of [...] tests). Lab Interpretation Abnormal (test code = 75454-5) [facility]2021-[facility]-05 14:08:00 Test Item Value Reference Range Interpretation Comments MAGNESIUM (test code = 3715933273) 1.7 mg/dL 1.7-2.4 Lab Interpretation (test code = Normal 75373-3) [facility]PHOSPHORUS2021-02-05 14:08:00 Test Item Value Reference Range Interpretation Comments PHOSPHORUS (test code = 3164596600) 3.8 mg/dL 2.5-5 Lab Interpretation (test code = Normal 24873-1) [facility]cosURIC [id number] 14:08:00 Test Item Value Reference Range Interpretation Comments URIC ACID (test code = 6664187448) 12.1 mg/dL 3.6-8 H Lab Interpretation (test code = Abnormal 56515-7) [facility] MarcosCB WITH [id number] 12:42:00 Test Item Value Reference Range Interpretation Comments WBC (test code = See_Comment [Automated 6690-2) message] The sy stem which generated this result transmitted reference range : 4.20 - 10.70 10*3/?L. The reference range was not used to interpret this result as normal/abnormal . RBC (test code = See_Comment L [Automated 919-8) message] The sy stem which generated this [...] RDW-SD (test code = 50.2 fL 38.5-51.6 90340-5) RDW-CV (test code = 16.1 % 12.1-15.4 H 788-0) PLT (test code = See_Comment [Automated 777-3) message] The sy stem which generated this result transmitted reference range : 150 - 328 10*3/ ?L. The reference r stephanie was not used to interpret this result as normal/abnormal . MPV (test code = 11.2 fL 9.8-13 86203-0) NRBC/100 WBC (test See_Comment [Automat ed code = 4094832367) message] The system which generated this result transmitted reference range : 0.0 - 10.0 /100 WBCs. The refer ence range was not u sed to interpret th is result as normal/abnormal . NRBC x10^3 (test code <0.01 See_Comment [Auto mated = 2449702351) message] The s ystem which generated this result transmitted reference range : 10*3/?L. The reference range was not used to interpret this result as normal/abnormal . GRAN MAT (NEUT) % 66.0 % (test code = 770-8) IMM GRAN % (test code 0.50 % = 2578689448) LYMPH % (test code = 17.2 % 736-9) MONO % (test code = 13.4 % 5905-5) EOS % (test code = 2.1 % 713-8) BASO % (test code = 0.8 % 706-2) GRAN MAT x10^3(ANC) 5.22 10*3/uL 1.99-6.95 (test code = 4053554858) IMM GRAN x10^3 (test 0.04 10*3/uL 0-0.06 code = 4266287779) LYMPH x10^3 (test code 1.36 10*3/uL 1.09-3.23 = 731-0) MONO x10^3 (test code 1.06 10*3/uL 0.36-1.02 H = 742-7) EOS x10^3 (test code = 0.17 10*3/uL 0.06-0.53 711-2) BASO x10^3 (test code 0.06 10*3/uL 0.01-0.09 = 704-7) Lab Interpretation Abnormal (test code = 14674-4) [facility] GLUCOSE (AUTOMATED)2020-06-29 11:00:00 Test Item Value Reference Range Interpretation Comments POCT GLU (test code = 5518359286) 328 mg/dL 70-110 H Lab Interpretation (test code = Abnormal 27828-4) [facility] GLUCOSE (AUTOMATED)2020-06-29 11:00:00 Test Item Value Reference Range Interpretation Comments POCT GLU (test code = 3286970436) 212 mg/dL 70-110 H Lab Interpretation (test code = Abnormal 30171-4) [facility]cosTROPONIN [id number] 06:49:00 Test Item Value Reference Range Interpretation Comments TROPONIN I (test 0.021 ng/mL See_Comment [Automated code = 2069168505) message] The system which generated this result [...] ? Lab Interpretation Normal (test code = 86817-8) [facility] MarcosLAFLATE [id number] 06:37:00 Test Item Value Reference Range Interpretation Comments LDH (test code = 3112223631) 302 U/L 300-600 Lab Interpretation (test code = Normal 36916-0) [facility] GLUCOSE (AUTOMATED)2020-06-29 03:31:00 Test Item Value Reference Range Interpretation Comments POCT GLU (test code = 2829396137) 339 mg/dL 70-110 H Lab Interpretation (test code = Abnormal 86960-2) [facility] FLUID MANUAL [id number] 00:21:00 Test Item Value Reference Range Interpretation Comments BF SEGS (test code = 0 % 1274052971) BF LYMPHS (test code 62 % = 6848667205) BF REACTIVE LYMPHS % 2 % (test code = 0783227481) MACROPHAGE (test code 32 % = 6957787177) MESOS (test code = 3 % 9736811269) BF EOS (test code = 1 % 6288348083) #CELS CNTD (test code = 4903711812) LUZ (test code = LUZ) Reactive mesos and erythrophages seen, Pigment-laden macrophages observed. Iron stain required to confirm presence of hemosiderin. [facility] FLUID DIRECT [id number] 00:19:00 Test Item Value Reference Range Interpretation Comments BF COLOR Yellow (test code = 3056733683) BF WBC Count See_Comment [Automated (test code = message] The sy stem 4822236350) which generated this result transmitted reference range : /?L. The refere nce range was not u sed to interpret th is result as normal/abnormal . BF RBC Count See_Comment [Automated (test code = message] The sy stem 6989755576) which generated this result transmitted reference range : /?L. The refere nce range was not u sed to interpret th is result as normal/abnormal . LUZ (test The reference range code = LUZ) and other method performance specifications have not been established for this body fluid. ?The test results must be integrated into the clinical context for interpretation. [facility] MarcosAmylase Body [id number] 00:04:00 Test Item Value Reference Range Interpretation Comments AMYLASE BF (test <30 U/L code = 9839631142) UNSPUN BODY Yellow FLUID COLOR (test code = 0549198341) UNSPUN BODY Slightly Cloudy FLUID CLARITY (test code = 4675197291) SPUN BODY FLUID Yellow COLOR (test code = 3178926723) SPUN BODY FLUID Clear CLARITY (test code = 6980321550) Sediment (test The sediment code = volume is <0.8 7907616391) mLs of the total fluid volume of 2mL and its color is white and red. LUZ (test code = Test developed and LUZ) characteristics determined by [facility] Laboratory Services. [facility] [id number] 00:04:00 Test Item Value Reference Range Interpretation Comments GLUCOSE BF (test 291 mg/dL code = 9815188110) UNSPUN BODY Yellow FLUID COLOR (test code = 6755734722) UNSPUN BODY Slightly Cloudy FLUID CLARITY (test code = 2355312602) SPUN BODY FLUID Yellow COLOR (test code = 4443533716) SPUN BODY FLUID Clear CLARITY (test code = 1517607364) Sediment (test The sediment code = volume is <0.4 7727693613) mLs of the total fluid volume of 2mL and its color is white and red. LUZ (test code = Test developed and LUZ) characteristics determined by [facility] Laboratory Services. [facility] Protein Body [id number] 00:04:00 Test Item Value Reference Range Interpretation Comments T.PROT BF (test 3600.0 mg/dL code = 5350162006) UNSPUN BODY Yellow FLUID COLOR (test code = 3828978801) UNSPUN BODY Slightly Cloudy FLUID CLARITY (test code = 7092323150) SPUN BODY FLUID Yellow COLOR (test code = 8141105065) SPUN BODY FLUID Clear CLARITY (test code = 6312945323) Sediment (test The sediment code = volume is <0.2 7874398944) mLs of the total fluid volume of 2mL and its color is white and red. LUZ (test code = Test developed and LUZ) characteristics determined by [facility] Laboratory Services. [facility] TOTAL BODY [id number] 00:04:00 Test Item Value Reference Range Interpretation Comments LDH BF (test 295 U/L code = 0317920158) UNSPUN BODY Yellow FLUID COLOR (test code = 7301148110) UNSPUN BODY Slightly Cloudy FLUID CLARITY (test code = 3460857488) SPUN BODY FLUID Yellow COLOR (test code = 3098275185) SPUN BODY FLUID Clear CLARITY (test code = 3186208962) Sediment (test The sediment code = volume is <0.1 6979947891) mLs of the total fluid volume of 2mL and its color is white and red. LUZ (test code = Test developed and LUZ) characteristics determined by [facility] Laboratory Services. [facility], Body [id number] 23:49:00 Test Item Value Reference Range Interpretation Comments PH BF (test code = 7754198758) UNSPUN BODY FLUID COLOR Yellow (test code = 3894872433) UNSPUN BODY FLUID Cloudy CLARITY (test code = 6349342441) SPUN BODY FLUID COLOR Yellow (test code = 2843556592) SPUN BODY FLUID CLARITY Clear (test code = 8927991237) Sediment (test code = The se diment volume is 5894264791) <0.1 mLs of the total fluid volume of 1.5mL and its color i s white. [facility] (AUTOMATED)2020-06-28 22:56:00 Test Item Value Reference Range Interpretation Comments POCT GLU (test code = 3606563894) 345 mg/dL 70-110 H Lab Interpretation (test code = Abnormal 88589-4) [facility]cosTROPONIN [id number] 21:14:00 Test Item Value Reference Range Interpretation Comments TROPONIN I (test 0.016 ng/mL See_Comment [Automated code = 4865087237) message] The system which generated this result [...] ? Lab Interpretation Normal (test code = 90948-0) [facility]VITAMIN B12, [id number] 20:47:00 Test Item Value Reference Range Interpretation Comments VIT B12 (test code = 233 pg/mL 240-930 L 7621955791) LUZ (test code = LUZ) Biotin has been reported to cause a positive bias, interpret results relative to patient's use of biotin. Lab Interpretation (test Abnormal code = 54473-9) [facility]cosLEGIONELLA URINARY ANTIGEN [id number] 20:03:00 Test Item Value Reference Range Interpretation Comments Legionella Urinary Negative Negative Antigen (test code = 0505157926) LUZ (test code = LUZ) Negative for [...] test. Lab Interpretation (test Normal code = 00494-0) [facility]PNEUMOCOCCAL [id number] 20:03:00 Test Item Value Reference Range Interpretation Comments S. pneumoniae antigen (test code = Negative Negative 7022141749) Lab Interpretation (test code = Normal 20803-1) [facility]IR THORACENTESIS WITH [id number] 19:52:481. ?Successful ultrasound-guided thoracentesis with removal of [...] fluid was removed from the rightpleural space. [facility], Radiant Results Inft User - 11:53 [...] was transferred to the floor in stablecondition. [facility]cosXR CHEST 1 [id number] 19:47:44HISTORY: S/P right thoracentesis. FINDINGS: AP upright view of the chest is obtained and compared with06/27/2020 study. Right-sided thoracentesis is noted. Small amount ofresidual pleural effusion suspected, some of which could be loculated.Cardiomegaly noted. No pneumothorax. CONCLUSIONS: S/P right thor acentesis. Small residual effusion noted whichcould be loculated. No pneumothorax. [facility], Radiant Results Inft User - 06/28/2020 1:48 PM CSTHISTORY: S/P right thoracentesis.FINDINGS: AP upright view of the chest is obtained and compared with06/27/2020 study. Right-sided thoracentesis is noted. Small amount ofresidual pleural effusion suspected, some of which could be loculated.Cardiomegaly noted. No pneumothorax.CONCLUSIONS: S/P right thoracentesis. Small residual effusion noted whichcould be loculated. No pneumothorax.[facility]cosPROCALCITONIN2021-02-04 18:42:00 Test Item Value Reference Range Interpretation Comments Procalcitonin (test 0.03 ng/mL <0.07 code = 9005023607) LUZ (test code = LUZ) INTERPRETATION OF [...] lung abscess/empyema. For further information please refer to:[email or web address] Lab Interpretation Normal (test code = 71483-9) [facility]cosPOCT GLUCOSE (AUTOMATED)2020-06-28 18:27:00 Test Item Value Reference Range Interpretation Comments POCT GLU (test code = 2051814690) 350 mg/dL 70-110 H Lab Interpretation (test code = Abnormal 62046-5) [facility]FOLATE2021-02-04 17:57:00 Test Item Value Reference Range Interpretation Comments FOLATE SER (test code = >20.0 3-20 H Biot in has been 0989850427) reported to cau se a positive bias, interpret resul ts relative to patient's use o f biotin. Lab Interpretation (test Abnormal code = 05035-9) [facility]VITAMIN D, [id number] 17:07:00 Test Item Value Reference Range Interpretation Comments VIT D 25OH (test code = 31 ng/mL 25-80 70016-7) LUZ (test code = LUZ) Deficiency: <20 ng/mLInsufficiency : 20-24 ng/mLOptimal: 25-80 ng/mL Lab Interpretation (test Normal code = 28736-2) [facility]cosUREA NITROGEN, URINE [id number] 16:53:00 Test Item Value Reference Range Interpretation Comments UREA N UR (test code = 0231534027) 500 mg/dL [facility]cosFERRITIN [id number] 15:36:00 Test Item Value Reference Range Interpretation Comments FERRITIN (test code = 21.9 ng/mL 18-464 2606526776) LUZ (test code = LUZ) Biotin has been reported to cause a negative bias, interpret results relative to patient's use of biotin. Lab Interpretation (test Normal code = 69411-3) [facility]cosTHYROID STIMULATING [id number] 15:28:00 Test Item Value Reference Range Interpretation Comments TSH (test code = See_Comment [Automated message] 2753801594) The system [employer] h generated this result transmitted ref erence range: 0.45 - 4 .70 mIU/L. The refe rence range was not u sed to interpret this result as normal/abnor mal. Lab Interpretation (test Normal code = 95084-8) [facility]cosPROTHROMBIN TIME / [id number] 14:32:00 Test Item Value Reference Range Interpretation Comments PROTIME PATIENT (test See_Comment H [Auto mated message] code = 5964-2) The system [employer] generated this result transmitted ref erence range: 12.0 - 1 4.7 Seconds. The reference range was not used to int erpret this result as normal/abnormal . INR (test code = 6301-6) Nor mal INR <1.1; Warfarin Therap eutic range 2.0 to 3. 0 or 2.5 to 3.5, dep ending upon the indica tions. Lab Interpretation (test Abnormal code = 53030-5) [facility] MarcosSEDIMENTATION [id number] 14:20:00 Test Item Value Reference Range Interpretation Comments ESR (test code = See_Comment H [Automated message] 5081621800) The system [employer] generated this result transmitted ref erence range: 0 - 10 m m/HR. The reference r stephanie was not used to interpret this result as normal/abnor mal. Lab Interpretation (test Abnormal code = 66917-4) [facility]POCT GLUCOSE (AUTOMATED)2020-06-28 14:14:00 Test Item Value Reference Range Interpretation Comments POCT GLU (test code = 7889203681) 291 mg/dL 70-110 H Lab Interpretation (test code = Abnormal 44238-7) [facility]cosGLYCOSYLATED HEMOGLOBIN (A1C)2020-06-28 14:00:00 Test Item Value Reference Range Interpretation Comments HGB A1C (test code = 10.5 % 4-6 H 4548-4) LUZ (test code = LUZ) %A1C (NGSP) Interpretation (ADA)4.8-5.6 ? ? Normal or (Non-Diabetic Range)5.7-6.4 ? ? Increased Risk (Pre-Diabetic)>6.5 ?Diabetes Indicated Lab Interpretation Abnormal (test code = 64004-3) [facility]cosTROPONIN [id number] 13:38:00 Test Item Value Reference Range Interpretation Comments TROPONIN I (test 0.013 ng/mL See_Comment [Automated code = 7716845246) message] The system which generated this result [...] ? Lab Interpretation Normal (test code = 08833-3) [facility]cosIRON [id number] 13:36:00 Test Item Value Reference Range Interpretation Comments IRON (test code = 5051140784) 42 ug/dL 50-160 L TIBC (test code = 0998771726) 384 ug/dL 250-410 % FE SAT (test code = 2715110003) 11 % 20-50 L Lab Interpretation (test code = Abnormal 76910-8) [facility]cosN-TERMINAL [id number] 13:35:00 Test Item Value Reference Range Interpretation Comments NT-proBNP (test code 1280 pg/mL See_Comment H [Autom ated = 2890800403) message] The system which generated this result transmitted reference range : <=450. The reference range was not used to interpret this result as normal/abnormal . LUZ (test code = LUZ) Biotin has been reported to cause a negative bias, interpret results relative to patient's use of biotin. Lab Interpretation Abnormal (test code = 64023-0) [facility] MarcosLactate [id number] 13:29:00 Test Item Value Reference Range Interpretation Comments LDH (test code = 0819617379) 341 U/L 300-600 Lab Interpretation (test code = Normal 75132-6) [facility]cosMAGNESIUM2021-02-04 13:28:00 Test Item Value Reference Range Interpretation Comments MAGNESIUM (test code = 1966914381) 1.6 mg/dL 1.7-2.4 L Lab Interpretation (test code = Abnormal 12649-5) [facility]cosCOMP. METABOLIC PANEL (28436)2020-06-28 13:27:00 Test Item Value Reference Range Interpretation Comments NA (test code = 138 mmol/L 135-145 3690043793) K (test code = 4.1 mmol/L 3.5-5 5023835690) CL (test code = 97 mmol/L 98-108 L 6498342977) CO2 TOTAL (test code = 29 mmol/L 23-31 3950274121) AGAP (test code = 2-16 8289592714) BUN (test code = 20 mg/dL 7-23 9855767811) GLUCOSE (test code = 251 mg/dL 70-110 H 5307874793) CREATININE (test code = 0.86 mg/dL 0.6-1.25 8128536271) TOTAL BILI (test code = 0.8 mg/dL 0.1-1.5 2318267672) CALCIUM (test code = 9.5 mg/dL 8.6-10.6 9451007564) T PROTEIN (test code = 7.0 g/dL 6.3-8.2 6092798001) ALBUMIN (test code = 4.1 g/dL 3.5-5 3912368244) ALK PHOS (test code = 75 U/L 34-122 0633310046) ALTv (test code = 11 U/L 5-50 1742-6) AST(SGOT) (test code = 15 U/L 13-40 1667604454) eGFR Calculation mL/min/1.73m2 (Non-) (test code = 6536725092) eGFR Calculation mL/min/1.73m2 () (test code = 5940316019) LUZ (test code = LUZ) Association of [...] tests). Lab Interpretation Abnormal (test code = 41733-0) [facility]cosPHOSPHORUS2021-02-04 13:27:00 Test Item Value Reference Range Interpretation Comments PHOSPHORUS (test code = 5759345863) 3.6 mg/dL 2.5-5 Lab Interpretation (test code = Normal 57204-5) [facility] MarcosURIC [id number] 13:27:00 Test Item Value Reference Range Interpretation Comments URIC ACID (test code = 5757576166) 9.3 mg/dL 3.6-8 H Lab Interpretation (test code = Abnormal 12106-9) [facility] MarcosLIPID PANEL (68541)(TOTAL CHOLESTEROL, TRIGLYCERIDES, HDL)2020-06-28 13:23:00 Test Item Value Reference Range Interpretation Comments CHOL (test code = 100 mg/dL 120-200 L 0971222642) HDL (test code = 25 mg/dL >40 L 2571697573) HDLC RATIO (test code = See_Comment [Au tomated message] 5129587705) The system [employer] generated this result transmit beatrice reference range : <=5.0. The refe rence range was not u sed to interpret th is result as normal/abnormal . TRIG (test code = 245 mg/dL 30-170 H 2135904103) LDL CHOL (test code = 26 mg/dL See_Comment [Auto mated message] 38452-1) The system [employer] generated this result transmit beatrice reference range : <=160. The refe rence range was not u sed to interpret th is result as normal/abnormal . VLDL (test code = 49 mg/dL 5-60 7151102227) Lab Interpretation (test Abnormal code = 18855-9) [facility]cosMAGNESIUM2021-02-04 13:23:00 Test Item Value Reference Range Interpretation Comments MAGNESIUM (test code = 4553331723) 1.7 mg/dL 1.7-2.4 Lab Interpretation (test code = Normal 13400-9) [facility]cosPHOSPHORUS2021-02-04 13:23:00 Test Item Value Reference Range Interpretation Comments PHOSPHORUS (test code = 8285756689) 3.7 mg/dL 2.5-5 Lab Interpretation (test code = Normal 99749-4) [facility]cosURIC [id number] 13:22:00 Test Item Value Reference Range Interpretation Comments URIC ACID (test code = 1543548985) 9.6 mg/dL 3.6-8 H Lab Interpretation (test code = Abnormal 19773-0) [facility]cosPROTEIN CREAT RATIO URINE [id number] 13:17:00 Test Item Value Reference Range Interpretation Comments T. PROT U (test code 11 mg/dL = 2888-6) CREAT U (test code = 51.4 mg/dL 9361248068) Protein/Creatinine 0.0-2.0 Ratio Urine (test code = 4121318223) LUZ (test code = LUZ) Random Urine Total Protein Reference Ranges Random Specimen: ? Less than 10 mg/dLFirst Morning Specimen: ? ?Less than 20 mg/dL ? [facility]cosSODIUM, URINE [id number] 13:13:00 Test Item Value Reference Range Interpretation Comments NA URINE (test code = 8625681546) 113 mmol/L [facility]cosADC / L[facility] - DRUG SCREEN [id number] 13:06:00 Test Item Value Reference Range Interpretation Comments BENZO U (test code = Presumptive Positive Negative A 0497868949) KADIE U (test code = Negative Negative 4142672505) AMPHET (test code = Negative Negative 9606005915) THC (test code = Negative Negative 8621087379) METHADONE (test code = Negative Negative 3733394040) Meth U (test code = Negative Negative 4076610625) OPIATES (test code = Negative Negative 2969264126) Cocaine Metabolite (test Negative Negative code = 8984213199) PROPOXY (test code = Negative Negative 4385821150) Tric U (test code = Negative Negative 4496627910) PCP (test code = Negative Negative 6465153781) OXYCOD (test code = Negative Negative 5560162802) LUZ (test code = LUZ) Urine Drug [...] testing). Lab Interpretation (test Abnormal code = 80835-2) [facility] WITH [id number] 12:45:00 Test Item Value Reference Range Interpretation Comments WBC (test code = See_Comment [Automated 7490-2) message] The sy stem which generated this result transmitted reference range : 4.20 - 10.70 10*3/?L. The reference range was not used to interpret this result as normal/abnormal . RBC (test code = See_Comment L [Automated 419-8) message] The sy stem which generated this [...] RDW-SD (test code = 50.2 fL 38.5-51.6 91586-3) RDW-CV (test code = 16.0 % 12.1-15.4 H 788-0) PLT (test code = See_Comment [Automated 777-3) message] The sy stem which generated this result transmitted reference range : 150 - 328 10*3/ ?L. The reference r stephanie was not used to interpret this result as normal/abnormal . MPV (test code = 11.0 fL 9.8-13 12655-5) NRBC/100 WBC (test See_Comment [Automat ed code = 4500649772) message] The system which generated this result transmitted reference range : 0.0 - 10.0 /100 WBCs. The refer ence range was not u sed to interpret th is result as normal/abnormal . NRBC x10^3 (test code <0.01 See_Comment [Auto mated = 2540880863) message] The s ystem which generated this result transmitted reference range : 10*3/?L. The reference range was not used to interpret this result as normal/abnormal . GRAN MAT (NEUT) % 63.7 % (test code = 770-8) IMM GRAN % (test code 0.50 % = 6985550857) LYMPH % (test code = 21.7 % 736-9) MONO % (test code = 10.2 % 5905-5) EOS % (test code = 2.9 % 713-8) BASO % (test code = 1.0 % 706-2) GRAN MAT x10^3(ANC) 4.02 10*3/uL 1.99-6.95 (test code = 4249362030) IMM GRAN x10^3 (test 0.03 10*3/uL 0-0.06 code = 4405864816) LYMPH x10^3 (test code 1.37 10*3/uL 1.09-3.23 = 731-0) MONO x10^3 (test code 0.64 10*3/uL 0.36-1.02 = 742-7) EOS x10^3 (test code = 0.18 10*3/uL 0.06-0.53 711-2) BASO x10^3 (test code 0.06 10*3/uL 0.01-0.09 = 704-7) Lab Interpretation Abnormal (test code = 15347-3) [facility]cosCT CHEST PULMONARY [id number] 04:06:45 No acute pulmonary embolism. Moderate volume [...] reviewed this study and agree with the abovereport.[facility]cosXR CHEST 1 [id number] 01:14:52 Small to moderate right pleural effusion [...] aortic calcifications. The upper abdomen is unremarkable. [facility], Radiant Results Inft User - 06/27/2020 7:15 [...] with adjacent atelectasis orinfiltrate.RL: [id number] of report UnB[facility] WaxahachieTROPONIN I 2020-06-28 01:06:00 Test Item Value Reference Range Interpretation Comments TROPONIN I (test 0.012 ng/mL See_Comment [Automated code = 8198790774) message] The system which generated this result [...] ? Lab Interpretation Normal (test code = 75454-9) [facility] MarcosPROTHROMBIN TIME / [id number] 01:03:00 Test Item Value Reference Range Interpretation [...] tions. Lab Interpretation (test Abnormal code = 84138-9) [facility] MarcosN-TERMINAL [id number] 01:03:00 Test Item Value Reference Range Interpretation Comments NT-proBNP (test code 1200 pg/mL See_Comment H [Autom ated = 0560206005) message] The system which generated this result transmitted reference range : <=450. The reference range was not used to interpret this result as normal/abnormal . LUZ (test code = LUZ) Biotin has been reported to cause a negative bias, interpret results relative to patient's use of biotin. Lab Interpretation Abnormal (test code = 12267-1) [facility] MarcosaPTT2021-02-04 00:59:00 Test Item Value Reference Range Interpretation Comments APTT Patient (test See_Comment [Automat ed code = 3173-2) message] The system which generated this result transmitted reference range : 23 - 38 Seconds . The reference range was not used to interpr et this result as normal/abnormal . LUZ (test code = LUZ) The [facility] patient population mean normal value for aPTT is 30 seconds. Lab Interpretation Normal (test code = 96626-0) [facility] MarcosCOMP. METABOLIC PANEL (01856)2020-06-28 00:54:00 Test Item Value Reference Range Interpretation Comments NA (test code = 136 mmol/L 135-145 2776146931) K (test code = 4.2 mmol/L 3.5-5 0485816127) CL (test code = 98 mmol/L 98-108 6697844655) CO2 TOTAL (test code = 26 mmol/L 23-31 6153738471) AGAP (test code = 2-16 1078414703) BUN (test code = 19 mg/dL 7-23 6191082478) GLUCOSE (test code = 284 mg/dL 70-110 H 2950936865) CREATININE (test code = 1.03 mg/dL 0.6-1.25 9189069067) TOTAL BILI (test code = 0.8 mg/dL 0.1-1.6 7486986033) CALCIUM (test code = 9.7 mg/dL 8.6-10.6 3437096395) T PROTEIN (test code = 7.6 g/dL 6.3-8.2 4094763466) ALBUMIN (test code = 4.4 g/dL 3.5-5 5311686769) ALK PHOS (test code = 88 U/L 34-122 5377438089) ALTv (test code = 13 U/L 5-50 1742-6) AST(SGOT) (test code = 17 U/L 13-40 6094985101) eGFR Calculation mL/min/1.73m2 (Non-) (test code = 0698358882) eGFR Calculation mL/min/1.73m2 () (test code = 1883536544) LUZ (test code = LUZ) Association of [...] tests). Lab Interpretation Abnormal (test code = 74234-2) [facility] MarcosLIPASE, [id number] 00:53:00 Test Item Value Reference Range Interpretation Comments LIPASE (test code = 0795597001) 58 U/L 0-220 Lab Interpretation (test code = Normal 71860-5) [facility]cosCOVID-19 (ID NOW RAPID TESTING)2020-06-28 00:53:00 Test Item Value Reference Range Interpretation Comments SARS-CoV-2 Rapid ID NOW Not Detected Not Detected (test code = 94794-4) LUZ (test code = LUZ) ID NOW COVID-19 Assay is an isothermal nucleic acid amplification test intended for the qualitative detection of nucleic acid from SARS-CoV-2 viral RNA in nasopharyngeal (LAPPING MACHINE [employer]) specimens. It is used under Emergency Use [...] indicated. Lab Interpretation Normal (test code = 40839-2) [facility] WITH [id number] 00:35:00 Test Item Value Reference Range Interpretation Comments WBC (test code = See_Comment [Automated 7590-2) message] The sy stem which generated this result transmitted reference range : 4.20 - 10.70 10*3/?L. The reference range was not used to interpret this result as normal/abnormal . RBC (test code = See_Comment L [Automated 409-8) message] The sy stem which generated this [...] RDW-SD (test code = 50.7 fL 38.5-51.6 82280-8) RDW-CV (test code = 16.2 % 12.1-15.4 H 788-0) PLT (test code = See_Comment [Automated 777-3) message] The sy stem which generated this result transmitted reference range : 150 - 328 10*3/ ?L. The reference r stephanie was not used to interpret this result as normal/abnormal . MPV (test code = 11.0 fL 9.8-13 40109-2) NRBC/100 WBC (test See_Comment [Automat ed code = 5052210585) message] The system which generated this result transmitted reference range : 0.0 - 10.0 /100 WBCs. The refer ence range was not u sed to interpret th is result as normal/abnormal . NRBC x10^3 (test code <0.01 See_Comment [Auto mated = 3027954591) message] The s ystem which generated this result transmitted reference range : 10*3/?L. The reference range was not used to interpret this result as normal/abnormal . GRAN MAT (NEUT) % 61.2 % (test code = 770-8) IMM GRAN % (test code 0.50 % = 2447912673) LYMPH % (test code = 23.9 % 736-9) MONO % (test code = 10.4 % 5905-5) EOS % (test code = 2.9 % 713-8) BASO % (test code = 1.1 % 706-2) GRAN MAT x10^3(ANC) 3.99 10*3/uL 1.99-6.95 (test code = 9839119869) IMM GRAN x10^3 (test 0.03 10*3/uL 0-0.06 code = 1420309932) LYMPH x10^3 (test code 1.56 10*3/uL 1.09-3.23 = 731-0) MONO x10^3 (test code 0.68 10*3/uL 0.36-1.02 = 742-7) EOS x10^3 (test code = 0.19 10*3/uL 0.06-0.53 711-2) BASO x10^3 (test code 0.07 10*3/uL 0.01-0.09 = 704-7) Lab Interpretation Abnormal (test code = 27826-5) [facility]
[2022-08-14 13:33] LABS: Protime INR 2.8
--- NOTE | 2022-08-14 13:37 | RAD REPORT ---
EXAM DESCRIPTION: CT - Head Brain Wo Cont - 08/14/2022 1:20 pm CLINICAL HISTORY: DECLINING STATE COMPARISON: No comparisons TECHNIQUE: All CT scans are performed using dose optimization technique as appropriate and may inclu de automated exposure control or mA/KV adjustment according to patient size. FINDINGS: No intracranial hemorrhage, hydrocephalus or extra-axial fluid collection.No areas of brai n edema or evidence of midline shift. Age advanced cerebral atrophy. The paranasal sinuses and mastoids are clear. The calvarium is intact. IMPRESSION: No acute intracranial abnormality.
[2022-08-14 13:47] LABS: Albumin 3.2 g/dL (3.4-5.0); Bilirubin Direct 0.5 mg/dL (0-0.2); Magnesium 2.9 mg/dL (1.6-2.4); Potassium 5.5 mEq/L (3.5-5.1); Protein, Total 7.2 g/dL (6.4-8.2); Thyroid Stimulating Hormone 2.13 uIU/mL (0.358-3.740); Troponin High Sensitivity 20.7 pg/mL (<58.9)
[2022-08-14 14:03] LABS: Anisocytosis 1+; Blood Morphology Comment NOTED (NOT SEEN); Platelet Estimate ADEQ; White Blood Cell Scan OK (OK)
--- NOTE | 2022-08-14 14:07 | RAD REPORT ---
EXAM DESCRIPTION: RAD - Chest Single View - 08/14/2022 1:41 pm CLINICAL HISTORY: SOB COMPARISON: Abdomen 1 View (KUB) dated 05/20/2022; Chest Single View dated 05/07/2022 FINDINGS: Lines: None. Lungs: There is likely underlying atelectasis secondary to the pleural effusion. The left lung is yaneth ar. Pleural: Small to moderate right pleural effusion. Cardiac: Cardiomegaly. Sternotomy. Mediastinum: Within normal limits. Bones: No acute fractures. Other: None IMPRESSION: Small to moderate right pleural effusion and presumably underlying atelectasis. The left lung is clear.
--- NOTE | 2022-08-14 14:43 | RAD REPORT ---
EXAM DESCRIPTION: US - Extrem Venous W Compress Jarad - 08/14/2022 1:49 pm CLINICAL HISTORY: SWELLING COMPARISON: No comparisons TECHNIQUE: Real-time sonographic evaluation of the lower extremity deep venous systems was performed using color Doppler, grayscale, and compression. FINDINGS: Bilateral lower extremities. Normal compressibility, flow augmentation, phasic flow and spontaneous flow is identified in both the left and right lower extremity deep venous systems. No intraluminal filling defects seen. IMPRESSION: No DVT in either lower extremity.
[2022-08-14] MEDS ORDERED: FUROSEMIDE 20 MG/ 2ML VIAL ONE (14:47)
[2022-08-14] MEDS ORDERED: ALBUTEROL 2.5 MG/3 ML NEB SOL ONE (15:32)
[2022-08-14 16:04] LABS: Specific Gravity 1.011 (1.005-1.030); Urine Bacteria None Seen /HPF (<20); Urine Bilirubin NEGATIVE (Negative); Urine Blood Negative (Negative); Urine Clarity Clear (Clear); Urine Color Light-Yellow (Yellow); Urine Glucose 3+ (Negative); Urine Mucus Slight /HPF (None Seen); Urine Protein NEGATIVE (Negative); Urine RBC <5 /HPF (None Seen); Urine Urobilinogen Normal (Normal)
[2022-08-14] MEDS ORDERED: PANTOPRAZOLE 40 MG INJ ONE (16:11)
--- NOTE | 2022-08-14 17:00 | ER ---
Nurse's Notes [facility] Name: Vasu Carrera Age: 86 yrs Sex: Male : 1935 Arrival Date: 08/14/2022 Time: 12:39 Bed 3 Private MD: Liat Vazquez C Diagnosis: Hypotension, unspecified-with hypoperfusion;Iron deficiency anemia secondary to blood loss (chronic);Gastro-esophageal reflux disease with esophagitis Presentation: 08/14 12:46 Chief complaint: Pt's states "he's been having chest pain for a while now and aa5 shortness of breath". Pt states "I just can't walk too far without my chest hurting and feeling out of breath". 12:46 Acuity: WILBERT 2 aa5 12:46 Coronavirus screen: shortness of breath. Ebola Screen: Patient denies travel to an [facility] Ebola-affected area in the 21 days before illness onset. Initial Sepsis Screen: Does the patient meet any 2 criteria? No. Patient's initial sepsis screen is negative. Does the patient have a suspected source of infection? No. Patient's initial sepsis screen is negative. Risk Assessment: Do you want to hurt yourself or someone else? Patient reports no desire to harm self or others. Onset of symptoms. 12:46 Method Of Arrival: Wheelchair aa5 Triage Assessment: 13:00 General: Appears in no apparent distress. Behavior is cooperative, appropriate for age. bp Pain: Complains of pain in mid-sternal area. EENT: No deficits noted. Neuro: No deficits noted. Cardiovascular: Rhythm is sinus rhythm. Respiratory: Reports shortness of breath. GI: No signs and/or symptoms were reported involving the gastrointestinal system. : No signs and/or symptoms were reported regarding the genitourinary system. Derm: No deficits noted. Musculoskeletal: No deficits noted. Historical: - Allergies: 12:45 Sulfa (Sulfonamide Antibiotics); aa5 12:45 Morphine; aa5 - PMHx: 12:45 Atrial fibrillation; Congestive heart failure; diabetes mellitus; Hypertensive disorder;aa5 12:47 Hernia; aa5 12:55 Home O2 PRN; aa5 - PSHx: 12:46 Open heart sx; aa5 12:47 Hip; aa5 - Immunization history:: Adult Immunizations unknown. - Social history:: Smoking status: Patient denies any tobacco usage or history of. Screenin:00 [facility] ED Fall Risk Assessment (Adult) History of falling in the last 3 months, bp including since admission No falls in past 3 months (0 pts). Abuse screen: Denies threats or abuse. Denies injuries from another. Nutritional screening: No deficits noted. Tuberculosis screening: No symptoms or risk factors identified. Assessment: 13:00 General: SEE TRIAGE NOTE. bp 14:10 Reassessment: Cyndy LIBRARY SALES CONSULTANT at bedside discussing results and POC. jl7 15:45 Reassessment: 1ST UNIT PRBC STARTED. CONSENT SIGNED AND WITNESSED BY FAMILY. bp 17:00 Reassessment: Patient appears in no apparent distress at this time. ADMIT INITIATED. bp 18:00 Reassessment: No changes from previously documented assessment. Patient and/or family bp updated on plan of care and expected duration. Pain level reassessed. 18:35 Reassessment: 1ST PRBC COMPLETE. TRANSFER PENDING AFTER SHIFT CHANGE. bp 19:36 Reassessment: pt reports cramps on the right leg from the cold ambiance, provided warm aa9 blankets. 19:53 Pain: Pain does not radiate. Pain began gradually. kd3 19:54 General: Appears in no apparent distress. Behavior is calm, cooperative. Neuro: Level kd3 of Consciousness is awake, alert, obeys commands, confused, Oriented to person, place, situation. Respiratory: Airway is patent Trachea midline Respiratory effort is even, unlabored, Respiratory pattern is regular, symmetrical. Vital Signs: 12:46 BP 91 / 49; Pulse 60; Resp 18 S; Temp 97.8(TE); Pulse Ox 94% on R/A; aa5 14:08 BP 117 / 70; Pulse 62; Resp 19; Pulse Ox 100% ; jl7 15:45 BP 139 / 63; Pulse 62; Resp 18; Temp 98.4; Pulse Ox 100% ; bp 17:00 BP 140 / 85; Pulse 76; Resp 18; Pulse Ox 98% ; bp 18:00 BP 145 / 81; Pulse 65; Resp 16; Pulse Ox 99% ; bp 19:53 BP 131 / 72; Pulse 72; Resp 14; Pulse Ox 98% on 2 lpm NC; kd3 19:54 Temp 98.4(O); kd3 ED Course: 12:39 Patient arrived in ED. am2 12:39 Liat Vazquez MD is Private Physician. am2 12:40 [facility] snw 12:40 Huber Loza MD is Attending Physician. snw 12:45 Arm band placed on. aa5 12:47 Triage completed. aa5 13:00 Patient has correct armband on for positive identification. Bed in low position. Call bp light in reach. Side rails up X2. Client placed on continuous cardiac and pulse oximetry monitoring. NIBP monitoring applied. 13:09 Geovanni Souza, JULY is Primary Nurse. bp 13:12 Inserted saline lock: 20 gauge in right forearm, using aseptic technique. Blood bp collected. 13:23 CT Head Brain wo Cont In Process Unspecified. EDMS 13:26 US Extremity Venous W Compression Jarad Sent. bp 13:43 XRAY Chest (1 view) In Process Unspecified. EDMS 13:51 US Extremity Venous W Compression Jarad In Process Unspecified. EDMS 16:56 Liat Vazquez MD is Hospitalizing Provider. snw 18:26 No provider procedures requiring assistance completed. Patient admitted, IV remains in bp place. Oxygen administration via nasal cannula \\T\\ 2L/min. 19:36 Warm blanket given. Assisted with urinal. Repositioned patient. aa9 Administered Medications: 14:45 Drug: Furosemide IVP 20 mg Route: IVP; Site: right forearm; bp 18:28 Follow up: Response: No adverse reaction bp 15:43 Drug: Albuterol Inhalation 2.5 mg Route: Inhalation; bp 16:00 Drug: Albuterol Inhalation 2.5 mg Route: Inhalation; bp 16:21 Drug: Albuterol Inhalation 2.5 mg Route: Inhalation; bp 16:21 Drug: Pantoprazole IVP 80 mg Route: IVP; Site: left forearm; bp 18:28 Follow up: Response: No adverse reaction bp 19:51 Drug: Furosemide IVP 20 mg Route: IVP; Site: left forearm; kd3 19:55 Follow up: Response: No adverse reaction kd3 Medication: 13:00 VIS not applicable for this client. bp Outcome: 16:59 Decision to Hospitalize by Provider. snw 19:53 Admitted to Med/surg room 204. kd3 19:53 Condition: stable 19:53 Discharge instructions given to patient, Instructed on the need for admit, Demonstrated understanding of instructions. 20:08 Patient left the ED. kd3 Signatures: Dispatcher [employer] EDMS Cyndy Prater, PROFILING MACHINE SETUP OPERATOR-C PROFILING MACHINE SETUP OPERATOR-Csnw Louisa Wick, RN RN aa5 Timothy Horvath RN RN jl7 Veronica Courtney am2 Geovanni Souza RN RN bp Isabel Jorgensen RN RN kd3 Arin Shaikh RN RN aa9 Corrections: (The following items were deleted from the chart) 12:50 12:46 Chief complaint: Pt's states "he's been having chest pain for a while now aa5 and shortness of breath" aa5
--- NOTE | 2022-08-14 17:00 | EDPHYS ---
Physician Documentation [facility] Name: Vasu Carrera Age: 86 yrs Sex: Male : 1935 Arrival Date: 08/14/2022 Time: 12:39 Bed 3 Private MD: Liat Vazquez C ED Physician Huber Loza HPI: 08/14 13:19 This 86 yrs old Male presents to ER via Wheelchair with complaints of Chest Pain, snw Shortness Of Breath. 13:19 The patient or guardian reports chest pain that is located primarily in the epigastric snw area. Onset: acutely. The pain does not radiate. Associated signs and symptoms: Pertinent positives: shortness of breath. The chest pain is described as stabbing. Duration: The patient or guardian reports multiple episodes, that wax and wane. Severity of pain: At its worst the pain was moderate severe. The patient has experienced similar episodes in the past. Spouse states she called Dr. Vazquez re: s/s and difficulty handling him at night. Historical: - Allergies: 12:45 Sulfa (Sulfonamide Antibiotics); aa5 12:45 Morphine; aa5 - PMHx: 12:45 Atrial fibrillation; Congestive heart failure; diabetes mellitus; Hypertensive disorder;aa5 12:47 Hernia; aa5 12:55 Home O2 PRN; aa5 - PSHx: 12:46 Open heart sx; aa5 12:47 Hip; aa5 - Immunization history:: Adult Immunizations unknown. - Social history:: Smoking status: Patient denies any tobacco usage or history of. ROS: 13:16 Eyes: Negative for injury, pain, redness, and discharge, ENT: Negative for injury, snw pain, and discharge, Neck: Negative for injury, pain, and swelling. 13:16 Abdomen/GI: Negative for abdominal pain, nausea, vomiting, diarrhea, and constipation, Back: Negative for injury and pain, : Negative for injury, bleeding, discharge, and swelling, MS/Extremity: Negative for injury and deformity, Skin: Negative for injury, rash, and discoloration, Neuro: Negative for headache, weakness, numbness, tingling, and seizure. 13:16 Constitutional: Positive for body aches, pt states he cannot walk from here to there without shortness of breath. 13:16 Cardiovascular: Positive for chest pain, of the mid-sternal area. 13:16 Respiratory: Negative for shortness of breath. 13:16 Psych: Positive for "my does everything, if you relay it to her, she will relay it to me.". Exam: 13:13 Head/Face: Normocephalic, atraumatic. Eyes: Pupils equal round and reactive to light, snw extra-ocular motions intact. Lids and lashes normal. Conjunctiva and sclera are non-icteric and not injected. Cornea within normal limits. Periorbital areas with no swelling, redness, or edema. ENT: Nares patent. No nasal discharge, no septal abnormalities noted. Tympanic membranes are normal and external auditory canals are clear. Oropharynx with no redness, swelling, or masses, exudates, or evidence of obstruction, uvula midline. Mucous membranes moist. Neck: Trachea midline, no thyromegaly or masses palpated, and no cervical lymphadenopathy. Supple, full range of motion without nuchal rigidity, or vertebral point tenderness. No Meningismus. Chest/axilla: Normal chest wall appearance and motion. Nontender with no deformity. No lesions are appreciated. 13:13 Respiratory: Lungs have equal breath sounds bilaterally, clear to auscultation and percussion. No rales, rhonchi or wheezes noted. No increased work of breathing, no retractions or nasal flaring. Abdomen/GI: Soft, non-tender, with normal bowel sounds. No distension or tympany. No guarding or rebound. No evidence of tenderness throughout. + umbilical hernia, easily reducible Back: No spinal tenderness. No costovertebral tenderness. Full range of motion. MS/ Extremity: Pulses equal, no cyanosis. Neurovascular intact. Full, normal range of motion. Neuro: Awake and alert, GCS 15, oriented to person, place, time, and situation. Cranial nerves II-XII grossly intact. Motor strength 5/5 in all extremities. Sensory grossly intact. Cerebellar exam normal. Normal gait. Psych: Awake, alert, with orientation to person, place and time. Behavior, mood, and affect are within normal limits. 13:13 Constitutional: The patient appears alert, awake, frail, pale. 13:13 Cardiovascular: Rate: normal, Rhythm: regular, Pulses: no pulse deficits are appreciated, Edema: ankle edema, that is moderate, Right greater than left. 13:13 Skin: Appearance: Color: jaundiced, pale. Vital Signs: 12:46 BP 91 / 49; Pulse 60; Resp 18 S; Temp 97.8(TE); Pulse Ox 94% on R/A; aa5 14:08 BP 117 / 70; Pulse 62; Resp 19; Pulse Ox 100% ; jl7 15:45 BP 139 / 63; Pulse 62; Resp 18; Temp 98.4; Pulse Ox 100% ; bp 17:00 BP 140 / 85; Pulse 76; Resp 18; Pulse Ox 98% ; bp 18:00 BP 145 / 81; Pulse 65; Resp 16; Pulse Ox 99% ; bp 19:53 BP 131 / 72; Pulse 72; Resp 14; Pulse Ox 98% on 2 lpm NC; kd3 19:54 Temp 98.4(O); kd3 MDM: 13:12 Patient medically screened. snw 13:12 Differential diagnosis: bacterial infection, bronchitis, pneumonia CHF, anemia, snw dementia. Data reviewed: vital signs, nurses notes. Counseling: I had a detailed discussion with the patient and/or guardian regarding:. ED course: Pt sees Dr. Vazquez, Spouse is having a hard time dealing with Patient at home, especially at night. 14:11 Differential diagnosis: abnormal EKG, acute myocardial infarction, acute pericarditis, snw congestive heart failure gastroesophageal reflux disease (GERD), pericarditis, pneumonia, pulmonary embolus. ECG: ECG: an electrocardiogram was deferred on this patient due to medical reasons. 15:58 Management of patient was discussed with the following: Primary Care Provider: Dr. patricia Vazquez, plan to admit. 16:59 Management of patient was discussed with the following: Primary Care Provider: patricia Discussed with Dr. Vazquez, will hold Lisinopril, give 2 units PRBC (total) with 20mg Lasix post each unit. Will admit to reassess labs and follow blood pressure/perfusion.. 08/14 12:53 Order name: Basic Metabolic Panel; Complete Time: 13:51 [facility] 08/14 12:53 Order name: CBC with Diff; Complete Time: 14:04 [facility] 08/14 12:53 Order name: LFT's; Complete Time: 13:51 [facility] 08/14 12:53 Order name: Magnesium; Complete Time: 13:51 [facility] 08/14 12:53 Order name: NT PRO-BNP; Complete Time: 13:51 w 08/14 12:53 Order name: PT-INR; Complete Time: 13:38 w 08/14 12:53 Order name: Troponin HS; Complete Time: 13:51 w 08/14 12:53 Order name: TSH; Complete Time: 13:51 08/14 12:53 Order name: TS 08/14 12:53 Order name: Tylenol Level; Complete Time: 13:51 08/14 12:53 Order name: Lactate w/ 2H reflex if indic.; Complete Time: 13:45 w 08/14 12:53 Order name: Blood Culture Adult (2) 08/14 12:53 Order name: Urine W/Microscopic (UAM); Complete Time: 16:18 w 08/14 12:53 Order name: Procalcitonin 08/14 13:30 Order name: CBC Smear Scan; Complete Time: 14:04 EDMS 08/14 13:31 Order name: Bb Add On 08/14 13:52 Order name: Packed RBC Leukored 08/14 17:24 Order name: Lactate Sepsis 2 HR Follow-up; Complete Time: 17:45 EDMS 08/14 18:55 Order name: Troponin High Sensitivity; Complete Time: 19:00 EDMS 08/14 12:53 Order name: XRAY Chest (1 view); Complete Time: 14:11 08/14 12:53 Order name: CT Head Brain wo Cont; Complete Time: 13:43 08/14 12:53 Order name: US Extremity Venous W Compression Jarad; Complete Time: 15:00 08/14 12:53 Order name: EKG; Complete Time: 12:54 08/14 12:53 Order name: Cardiac monitoring; Complete Time: 13:23 08/14 12:53 Order name: EKG - Nurse/Tech; Complete Time: 13:23 08/14 12:53 Order name: IV Saline Lock; Complete Time: 13:23 08/14 12:53 Order name: Labs collected and sent; Complete Time: 13:23 08/14 12:53 Order name: O2 Per Protocol; Complete Time: 13:23 08/14 12:53 Order name: O2 Sat Monitoring; Complete Time: 13:23 snw 08/14 13:23 Order name: Labs - recollect needed: recollect type and screen, do not write on the bar bd code.; Complete Time: 14:08 08/14 13:52 Order name: Recheck VS; Complete Time: 14:08 snw EC:13 Rate is 62 beats/min. Rhythm is irregularly irregular. QRS [place] is Normal. T waves are snw Inverted in leads V4, V5, V6. Clinical impression: Atrial Fibrillation. Administered Medications: 14:45 Drug: Furosemide IVP 20 mg Route: IVP; Site: right forearm; bp 18:28 Follow up: Response: No adverse reaction bp 15:43 Drug: Albuterol Inhalation 2.5 mg Route: Inhalation; bp 16:00 Drug: Albuterol Inhalation 2.5 mg Route: Inhalation; bp 16:21 Drug: Albuterol Inhalation 2.5 mg Route: Inhalation; bp 16:21 Drug: Pantoprazole IVP 80 mg Route: IVP; Site: left forearm; bp 18:28 Follow up: Response: No adverse reaction bp 19:51 Drug: Furosemide IVP 20 mg Route: IVP; Site: left forearm; kd3 19:55 Follow up: Response: No adverse reaction kd3 Disposition Summary: 08/14/22 16:59 Hospitalization Ordered Hospitalization Status: Inpatient Admission snw Provider: Liat Vazquez Location: Telemetry/MedSur (Inpatient) snw Condition: Stable snw Problem: an acute exacerbation snw Symptoms: have improved snw Bed/Room Type: Standard snw Room Assignment: 204(08/14/22 17:30) Diagnosis - Hypotension, unspecified - with hypoperfusion snw - Iron deficiency anemia secondary to blood loss (chronic) snw - Gastro-esophageal reflux disease with esophagitis snw Forms: - Medication Reconciliation Form snw - SBAR form snw Addendum: 09/21/2022 08:58 I reviewed the patient's care provided by the Advanced Practice Provider and agree with j r11 the diagnosis and treatment plan. Signatures: Dispatcher [employer] Deidra Salmeron Diana, RN RN dw Waters, Shelly, LCAC RADAR OPERATOR/NAVIGATOR-C LCAC RADAR OPERATOR/NAVIGATOR-Csnw Louisa Wick RN RN aa5 Geovanni Souza RN RN bp Isabel Jorgensen RN RN kd3 Huber Loza MD MD [id number] Corrections: (The following items were deleted from the chart) 08/14 13:19 13:13 Respiratory: Lungs have equal breath sounds bilaterally, clear to auscultation snw and percussion. No rales, rhonchi or wheezes noted. No increased work of breathing, no retractions or nasal flaring. Abdomen/GI: Soft, non-tender, with normal bowel sounds. No distension or tympany. No guarding or rebound. No evidence of tenderness throughout. Back: No spinal tenderness. No costovertebral tenderness. Full range of motion. MS/ Extremity: Pulses equal, no cyanosis. Neurovascular intact. Full, normal range of motion. Neuro: Awake and alert, GCS 15, oriented to person, place, time, and situation. Cranial nerves II-XII grossly intact. Motor strength 5/5 in all extremities. Sensory grossly intact. Cerebellar exam normal. Normal gait. Psych: Awake, alert, with orientation to person, place and time. Behavior, mood, and affect are within normal limits. snw 16:59 16:55 Chart complete. snw snw 17:30 16:59 snw dw
[2022-08-14] MEDS ORDERED: MAGNESIUM HYDROXIDE 8% 30 ML PO PRN (17:16)
[2022-08-14] MEDS ORDERED: SODIUM CHLORIDE 0.9% 10ML INJ IV PRN (17:43)
[2022-08-14] MEDS: ALBUTEROL 2.5 MG/3 ML NEB SOL NEB SCH (20:22)
[2022-08-14] MEDS: INSULIN -REGULAR HUMAN 50 UNIT/0.5 ML ML SQ SCH (20:37)
[2022-08-14 20:43] VITALS: BMI 26.0
[2022-08-14] MEDS ORDERED: NA CHLORIDE 0.9% 250 ML ONE (21:50)
[2022-08-14] MEDS ORDERED: FUROSEMIDE 20 MG/ 2ML VIAL IV ONE (22:43)
[2022-08-15] MEDS: ALBUTEROL 2.5 MG/3 ML NEB SOL NEB SCH ×3 (02:30→13:20)
[2022-08-15 02:55] LABS: Absolute Lymphocytes (CBC) 0.9 K/uL (0.7-4.9); Hematocrit 30.2 % (39.6-49.0); Lymphocytes % 14.6 % (15.3-44.8); MCV 79.6 fL (80-100); MPV 8.8 fL (7.6-11.3); RBC Red Blood Cell Count 3.79 M/uL (4.33-5.43)
[2022-08-15 03:20] LABS: Albumin 3.7 g/dL (3.4-5.0); Bilirubin Total 2.2 mg/dL (0.2-1.0); Magnesium 2.8 mg/dL (1.6-2.4); Phosphorus 4.1 mg/dL (2.5-4.9); Potassium 4.5 mEq/L (3.5-5.1); Protein, Total 7.6 g/dL (6.4-8.2); Thyroid Stimulating Hormone 1.25 uIU/mL (0.358-3.740)
[2022-08-15] MEDS: INSULIN -REGULAR HUMAN 50 UNIT/0.5 ML ML SQ SCH ×2 (07:30→11:42)
--- NOTE | 2022-08-15 08:59 | RAD REPORT ---
EXAM DESCRIPTION: RAD - Chest Pa And Lat (2 Views) - 08/15/2022 5:27 am CLINICAL HISTORY: CHF hx with blood transfusion Chest pain. COMPARISON: Chest Single View dated 08/14/2022; Abdomen 1 View (KUB) dated 05/20/2022; Chest Single V iew dated 05/07/2022; Chest Abd Pelvis Wo Con dated 08/15/2022 FINDINGS: Small to moderate right pleural effusion. Mild atelectasis in the right lung base. Left leon ng is clear. The heart is mildly enlarged. Sternotomy wires present. IMPRESSION: Stable small to moderate right pleural effusion.
[2022-08-15] MEDS ORDERED: PANTOPRAZOLE 40 MG INJ IVP SCH (09:00)
--- NOTE | 2022-08-15 09:11 | RAD REPORT ---
EXAM DESCRIPTION: CT - Chest Abd Pelvis Wo Con - 08/15/2022 8:09 am CLINICAL HISTORY: Chest and abdomen pain. CHF, weight loss COMPARISON: Chest Pa And Lat (2 Views) dated 08/15/2022 TECHNIQUE: A limited noncontrast study was performed. All CT scans are performed using dose optimization technique as appropriate and may include automated exposure control or mA/KV adjustment according to patient size. FINDINGS: Diffuse mild COPD. Right lung base areas of lung consolidation probably represent atelecta sis. .Small chronic right pleural effusion.A few mildly prominent mediastinal lymph nodes, likely katelyn ctive. The liver, spleen, pancreas, adrenal glands and kidneys are within normal limits. Trace free fluid is seen in the abdomen. No bowel obstruction. Mild free fluid layers pelvis as well. No free intraperitoneal air. Mild aortic atherosclerosis. No pathologic lymphadenopathy in the abdom en or pelvis. Small fat containing left inguinal hernia. Moderate lumbar degenerative changes. IMPRESSION: Diffuse COPD. Trace free fluid in the abdomen and pelvis. Loculated chronic right pleural effusion.
[2022-08-15] MEDS ORDERED: ACETAMINOPHEN 500 MG TAB PO PRN (10:51)
--- NOTE | 2022-08-15 13:42 | EKG ---
Test Date: 2022-08-14 Test Time: 12:55:10 Mobile Game Engineer: ANNAMARIE MEASUREMENT RESULTS: Intervals: Rate: 62 HI: QRSD: 86 QT: 400 QTc: 406 [place]: P: HI: QRS: 96 T: 209 INTERPRETIVE STATEMENTS: Atrial fibrillation Rightward axis ST & T wave abnormality, consider inferolateral ischemia Abnormal ECG Compared to ECG 05/17/2022 10:42:16 Right-axis deviation now present Possible ischemia now present ST (T wave) deviation still present Electronically Signed On 08-15-22 13:38:55 CDT by Kit Hewitt
--- NOTE | 2022-08-15 14:07 | ECHO ---
HEIGHT: 5 ft 10 in WEIGHT: 181 lb 4.8 oz DATE OF STUDY: 08/15/[address]: Sean Vazquez MD 2-DIMENSIONAL: YES M.MODE: YES DOPPLER: YES COLOR FLOW: YES TDS: PORTABLE: YES DEFINITY: BUBBLE STUDY: DIAGNOSIS: CONGESTIVE HEART FAILURE CARDIAC HISTORY: CATHERIZATION: YES SURGERY: YES PROSTHETIC VALVE: NO PACEMAKER: NO MEASUREMENTS (cm) DIASTOLIC (NORMALS) SYSTOLIC (NORMALS) IVSd 0.9 (0.6-1.2) LA Diam 3.4 (1.9-4.0) LVEF 64% LVIDd 4.3 (3.5-5.7) LVIDs 2.8 (2.0-3.5) %FS 35% LVPWd 0.9 (0.6-1.2) Ao Diam 2.5 (2.0-3.7) 2 DIMENSIONAL ASSESSMENT: RIGHT ATRIUM: ENLARGED LEFT ATRIUM: ENLARGED RIGHT VENTRICLE: NORMAL LEFT VENTRICLE: NORMAL TRICUSPID VALVE: SEVERE TRICUSPID REGURGITATION MITRAL VALVE: MILD MITRAL REGURGITATION PULMONIC VALVE: MILD PULMONIC INSUFFICIENCY AORTIC VALVE: NORMAL PERICARDIAL EFFUSION: NONE AORTIC ROOT: NORMAL LEFT VENTRICULAR WALL MOTION: NORMAL DOPPLER/COLOR FLOW: SEE BELOW COMMENTS: 1. NORMAL LEFT VENTRICULAR EJECTION FRACTION 60-65% WITH NORMAL WALL MOTION 2. BIATRIAL ENLARGEMENT 3. SEVERE TRICUSPID REGURGITATION 4. 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 MILD MITRAL REGURGITATION 6. MITRAL ANNULAR CALCIFICATION (MODERATE) 7. SEVERE DIASTOLIC DYSFUNCTION TECHNOLOGIST: GEETA BUTLER
[2022-08-15 14:35] VITALS: O2SAT 96
[2022-08-15] MEDS ORDERED: FLEET ENEMA ADULT PR ONE (16:00)
[2022-08-15 17:19] VITALS: BP 110/68; TEMP 98.3
[2022-08-15] MEDS ORDERED: FUROSEMIDE 20 MG/ 2ML VIAL IV SCH (18:00)
--- NOTE | 2022-08-19 09:23 | DS ---
Date of Discharge: 08/15/2022 Disposition: Discharged to go home. Physical Examination: Vital Signs: Temperature 98.1, pulse 103, respiratory rate 18, blood pressure 137/65, oxygen saturation 93% on room air. HEENT: Unremarkable. Lungs: Clear to auscultation. Heart: Sounds normal. Abdomen: Soft. Bowel sounds normal. No guarding, rigidity, tenderness, distention. Extremities: No leg edema. Laboratory Data: Upon admission; white count 6.5, hemoglobin 7.5, platelets 201. Today; white count 6.2, hemoglobin 9.6, platelets 217. Upon admission; sodium 135, potassium 5.5, chloride 105, bicarb 22, BUN 53, creatinine 1.79, glucose 154. Liver function tests unremarkable. Troponin 20.7 on the first set, second set 18.5. Procalcitonin less than 0.05. TSH 2.130. Last chemistry today; sodium 138, potassium 4.5, chloride 102, bicarb 29, BUN 48, creatinine 1.42, glucose 118. Liver function tests unremarkable. Urinalysis negative. The patient's chest x-ray shows [id number] right pleural effusion with some underlying atelectasis. Venous Doppler of lower extremity was negative for DVT. CAT scan of the head was negative for any acute intracranial changes. Hospital Course: This is an 86-year-old pleasant male patient, who was admitted to the hospital after he came into emergency room. Please see dictated H and P for more information. The patient's blood pressure was running low at home and he was feeling weak, has had some chest pain lately. After he was evaluated in the ER, he was admitted to the hospital. His MN was ruled out by getting serial cardiac enzymes. Echocardiogram was done, which showed normal ejection fraction. Overall, the patient's condition has improved during this hospitalization and today he was discharged to go back home in stable condition with following discharge medications and instructions; 1. Continue all prior home medications except stop lisinopril. 2. Reduce dose of metoprolol to half a tablet 2 times a day. 3. Follow up at my office next week. 4. I have called the patient's and discussed all the details regarding discharge instructions with her. Final Diagnoses: 1. Hypotension. 2. Chronic diastolic heart failure. 3. Chronic kidney disease, stage 3A. 4. Anemia due to chronic kidney disease. 5. Hyponatremia. 6. Type 2 diabetes mellitus, uncontrolled. 7. Hypothyroidism. 8. Type 2 diabetes mellitus with chronic kidney disease. 9. Coronary artery disease. 10. Pleural effusion. 11. Hypertension. 12. Hyperlipidemia. 13. Chronic atrial fibrillation. 14. Gastroesophageal reflux disease. 15. Benign prostatic hypertrophy. 16. Osteoarthritis, multiple sites. 17. Insomnia. 18. Anxiety. 19. Diverticulosis. JAMEE/MODL Voice ID: [id number] Report ID: [id number] MTDD
--- NOTE | 2022-09-22 07:37 | HP ---
Date of Admission: 08/14/2022 Chief Complaint: Low blood pressure. History Of Present Illness: This is an 86-year-old pleasant male patient, who lives at home with his , came into emergency room with complaints of low blood pressure. Denies any vomiting, diarrhea . No blood in stool. Denies any fever, chills, nausea, vomiting. No abdominal pain. The patient i s feeling weak because of this low blood pressure. He has had some chest pain lately and he was advi sed to come to emergency room and after he was evaluated in the ER, he was admitted to the hospital. Medications: List reviewed. Allergies: TO MORPHINE CAUSING HEADACHE, SULFA CAUSING NAUSEA. Review of Systems: Constitutional: As mentioned above. Cardiovascular: As mentioned above. All other systems reviewed and negative. Past Medical History: Significant for COVID-19 infection in October 2021, hypothyroidism, type 2 diabet es mellitus, hypertension, hyperlipidemia, coronary artery disease, chronic diastolic heart failure, chronic atrial fibrillation, gastroesophageal reflux disease, diverticulosis, benign prostatic hypert rophy, osteoarthritis at multiple sites, anxiety, insomnia. 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 Family History: Father , had tuberculosis. Mother , details unknown. Brother , had con gestive heart failure. Sister in motor vehicle accident. Social History: Negative for smoking and alcohol use. Physical Examination: Vital Signs: When he first came to emergency room; temperature 97.8, pulse 60, respiratory rate 18, blood pressure 91/49, oxygen saturation 94%. Height 5 feet 10 inches, weight 181 pounds. General: Awake, alert, oriented, not in distress. HEENT: Head atraumatic, normocephalic. Conjunctivae nonerythematous. Sclerae white. Mouth, no thr ush or edema noted. Ears/Nose, no mass, lesion, discharge noted. Neck: Supple. No JVD, lymph nodes, bruit, thyromegaly noted. Lungs: Bilateral good equal air entry. Clear to auscultation. No rhonchi. No rales. Heart: Normal heart sounds, no murmur or gallop. Abdomen: Soft, bowel sounds normal. No guarding, rigidity, tenderness, mass, hepatosplenomegaly, dis tention, or bruit noted. Extremities: No leg edema. No calf tenderness. Skin: No rash, ulcer, cellulitis. Lymphatics: No lymph node enlargement in neck, supraclavicular, infraclavicular region. Neuro: No focal neurological deficit. Chest: Unremarkable. External Genitalia: Deferred. Rectal: Deferred. Laboratory Data: White count 6.5, hemoglobin 7.5, platelets 201. Sodium 135, potassium 5.5, chlorid e 105, bicarb 22, BUN 53, creatinine 1.79, glucose 154, lactic acid 3.6. Repeat lactic acid 2.3, mag nesium 2.9. Liver function tests unremarkable. Troponin 20.7, proBNP 2825, procalcitonin less than 0.05, TSH 2.13. Urinalysis; 3+ glucose, otherwise negative. Tylenol level 17.8. CAT scan of the he ad, no acute intracranial changes. Venous Doppler, no evidence of DVT in the leg. Chest x-ray, smal [id number] right pleural effusion with some underlying atelectasis. Impression: 1.Hypotension. 2.Chronic diastolic heart failure. 3.Anemia due to chronic kidney disease. 4.Type 2 diabetes mellitus with chronic kidney disease. 5.Coronary artery disease. 6.Pleural effusion. 7.Hypertension. 8.Hyperlipidemia. 9.Chronic atrial fibrillation. 10.Gastroesophageal reflux disease. 11.Benign prostatic hypertrophy. 12.Osteoarthritis, multiple sites. 13.Insomnia. 14.Anxiety. 15.Diverticulosis. 16.Hypothyroidism. Plan: We will go ahead and admit the patient to hospital for further evaluation and management of th is problem. We will repeat blood work tomorrow, get serial cardiac enzymes. Tomorrow, we will go ah ead and get a CAT scan done per order. Home medications will be continued per order. We will have t o make adjustment on antihypertensive medication depending on the blood pressure. We will also get e chocardiogram on him. Details and plan of treatment discussed with the patient and I will see him to [place] for followup. JAMEE/MODL Voice ID: [id number]
== END 2022-08-15 17:22 | disposition home or self-care (01) | DRG 315 ==
LOC: ER 12:36 → ERHOLD 17:12 → INTOOBSV 17:12 → OBSVTOIN 17:12 → 2ND 19:12
PROVIDERS: ADMIT Internal Medicine; ATTEND Internal Medicine
PROC: 30233N1 Transfusion of Nonautologous Red Blood Cells into Peripheral Vein, Percutaneous Approach (ICD-10-PCS; principal; 2022-08-14)
DX: I95.9 Hypotension, unspecified (principal); I13.0 Hypertensive heart and chronic kidney disease with heart failure and stage 1 through stage 4 chronic kidney disease, or unspecified chronic kidney disease; I50.32 Chronic diastolic (congestive) heart failure; J98.11 Atelectasis; I48.20 Chronic atrial fibrillation, unspecified; D50.0 Iron deficiency anemia secondary to blood loss (chronic); N18.9 Chronic kidney disease, unspecified; E11.22 Type 2 diabetes mellitus with diabetic chronic kidney disease; D63.1 Anemia in chronic kidney disease; K21.00 Gastro-esophageal reflux disease with esophagitis, without bleeding; E03.9 Hypothyroidism, unspecified; M19.09 Primary osteoarthritis, other specified site; E78.5 Hyperlipidemia, unspecified; N40.0 Benign prostatic hyperplasia without lower urinary tract symptoms; G47.00 Insomnia, unspecified; F41.9 Anxiety disorder, unspecified; K57.90 Diverticulosis of intestine, part unspecified, without perforation or abscess without bleeding; I25.10 Atherosclerotic heart disease of native coronary artery without angina pectoris; Z88.5 Allergy status to narcotic agent; Z88.1 Allergy status to other antibiotic agents; Z86.16 Personal history of COVID-19; Z96.653 Presence of artificial knee joint, bilateral
CPT/HCPCS: 36415; 70450; 71045; 71046; 71250; 74176; 80048; 80053; 80076; 81001; 82947; 83605; 83735; 83880; 84100; 84145; 84443; 84484; 85025; 85610; 86850; 86900; 86901; 87040; 93005; 93306; 93970; 94640; 94760; 99285; C9113; G0480; J1815; J1940; J7050; J7613; P9016

== ENCOUNTER 2023-02-22 19:48 | Inpatient (IN) | payer OTHER ==
--- OUTSIDE RECORDS SUMMARY | 2023-02-22 20:03 | XMS REPORT | Continuity of Care Document ---
:1935 Author Organization [facility] t Address [address] [place] [address] [address] [place] [address] Care Team Providers Name Role Phone CARRIANDRES [...] Clinician Cady MUNOZ, Morgan Attending Clinician Addison STAFF COUNSELOR, Fahad Attending Clinician FAHAD GRIGGS Attending Clinician Unavailable Bhavya MCDOWELL, Bonny Attending Clinician Veronica STAFF COUNSELOR, Marlena Patiño Attending Clinician GARETT ARMAS Attending Clinician Unavailable Doctor Unassigned, Merriman Attending Clinician Unavailable Gramm STAFF COUNSELOR, Donna A Attending Clinician GRAMM DONNA A [...] 00:00: [place] involving involving 00 Medi anabell tanana tanana Branch 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 anabell Branch Allergies, Adverse Reactions, Alerts [...] morphine Active Unknown Commo n Spirit - [facility] Social History Social Habit Start Date Stop Date Quantity Comments Source History of Common Spirit - Tobacco Use [facility] Sex Assigned At Common Sp sosa - [facility] History SDOH Food 2022-02-12 2022-02-12 1 Univers ity of Worry 00:00:00 00:00:00 [place] [facility] [place] History SDOH Food 2022-02-12 2022-02-12 1 Univers ity of Scarcity 00:00:00 00:00:00 [place] [facility] History SDOH 2022-02-12 2022-02-12 2 University o f Transport Med 00:00:00 00:00:00 [place] Medic al Branch History SDOH 2022-02-12 2022-02-12 2 University o f Transport Non-Med 00:00:00 00:00:00 [place] M anumical Branch Exposure to 2022-01-13 2022-01-23 Not sure [place] of SARS-CoV-2 00:00:00 05:03:00 [facility] (event) Branch Alcohol intake 2022-01-23 2022-01-23 0 /d University of 00:00:00 00:00:00 [facility] Tobacco use and 2017-10-06 2017-10-06 Smokeless tobacco Un iversity of exposure 00:00:00 00:00:00 non-user [facility] Smoking Status Start Date Stop Date Source Never Smoker Common Spirit - [facility] Ex-smoker 2017-10-06 00:00:00 2017-10-06 00:00:00 [facility] Medications Ordered Filled Start Stop Current Ordering [...] paroxysmal atrial fibrillati on levothyroxi 2022- No [id number] 50ug Take 1 Univers ne 50 mcg 02-12 tablet by ity of tablet 00:00: 05:59 mouth [place] 00 :00 every Medical morning [place] for 90 days. pantoprazol 0 2021- No [id number] 40mg Take 1 Univers e 40 mg EC 02-12 tablet by ity of tablet 00:00: 05:59 mouth in [place] 00 :00 the Medical morning Branch for 90 days. levothyroxi 2021- No [id number] 50ug Take 1 Univers ne 50 mcg 02-12 tablet by ity of tablet 00:00: 05:59 mouth [place] 00 :00 every Medical morning Branch for 90 days. pantoprazol 2021- No [id number] 40mg Take 1 Univers e 40 mg [...] by mouth ity of 19:05: in the [place] [address] morning Medical and 1 mg Branch at noon and 1 mg in the evening. Take with meals. gabapentin Yes 100mg Take 100 Un savanna 100 mg 9-20 mg by ity of capsule 19:05: mouth 2 [place] [address] (two) Medical times Branch daily. torsemide Yes Take by Unive rs 100 mg 9-20 mouth. ity of tablet 19:05: [place] [address] Medical Branch lisinopriL Yes 10mg Take 10 mg U nivers 10 mg 9-20 by mouth ity of tablet 19:05: in the [place] [address] morning. Medical Branch isosorbide Yes 30mg Take 30 mg U nivers mononitrate 9-20 by mouth. ity of 30 mg 24 hr 19:05: [place] [address] Medical Branch ALPRAZOLAM Yes 1mg Take 1 mg Un savanna (XANAX XR 9-20 by mouth ity of ORAL) 19:05: daily. [place] [address] Medical Branch Ascorbic Yes 1000mg Take 1,000 U nivers Acid 1,000 9-20 mg by ity of mg TbSR 19:05: mouth 2 [place] [address] (two) Medical times [place] daily. Cholecalcif Yes 400U Take 400 Un [...] by mouth ity of 19:05: in the [place] [address] morning Medical and 1 mg Branch at noon and 1 mg in the evening. Take with meals. gabapentin Yes 100mg Take 100 Un sav[place] 100 mg 9-20 mg by ity of capsule 19:05: mouth 2 [place] 35 (two) Medical times Branch daily. torsemide Yes Take by [facility] rs 100 mg 9-20 mouth. ity of tablet 19:05: [place] [address] Medical Branch lisinopriL Yes 10mg Take 10 mg U nivers 10 mg 9-20 by mouth ity of tablet 19:05: in the [place] [address] morning. Medical Branch isosorbide Yes 30mg Take [...] [place] mg 00 First dose Medical on [facility] 02/11/22 at 0900, Until Discontinu ed, Routine rivaroxaban Yes 20mg 20 mg, Univ ers (XARELTO) 02-11 Oral, ity of tablet 20 14:00: DAILY, [place] mg 00 First dose Medical on [facility] 02/11/22 at 0900, Until Discontinu ed, Routine pantoprazol Yes 40mg 40 mg, Univ ers e 02-11 Oral, ity of (PROTONIX) 14:00: DAILY, [place] EC tablet 00 First dose Medi anabell 40 mg on [facility] 02/11/22 at 0900, Until Discontinu ed, Routine digoxin Yes 125ug 125 mcg, Unive rs (LANOXIN) 02-11 Oral, ity of tablet 125 14:00: DAILY, [place] mcg 00 First dose Medical on [facility] 02/11/22 at 0900, Until Discontinu ed, Routine aspirin No 325mg 325 mg, Unive rs tablet 325 02-11 Oral, ity of mg 14:00: 07:17 DAILY, [place] 00 :21 First dose Medical on [facility] 02/11/22 at 0900, Until Discontinu ed, Routine [...] NaCl 0.9% 2021- No 500mL at 999 [facility] ers (NS) bolus 02-1120 mL/hr, 500 it [...] Routine, Pain (scale 1-3) iopamidol 2021- No [id number] 80mL 80 mL, U nivers (ISOVUE 02-11 Intravenou ity o f 370-500 mL) 02:00: 02:00 s, ONCE, 1 [place] injection 00 :00 dose, On Medica l 80 mL Thu [place] 02/10/22 at 2100, Routine FUROSEMIDE 2021- No 40mg Take 40 mg Univers ORAL 02-11 by mouth 2 ity of 01:07: 00:00 (two) [place] 48 :00 times Medical daily. Branch NaCl 0.9% 2021- No 250mL at 100 [facility] ers (NS) IV 02-11 09-20 mL/hr, IV ity of infusion 00:45: 15:06 Infusion, [place] 250 mL 00 :15 CONTINUOUS Medical , Starting Branch on Thu02/10/22 at 1945, Until Thu02/11/22 at 1006, Routine nitroglycer Yes [id number] .3mg Place 1 Univers in 0.3 mg 9-20 tablet ity of sublingual 00:00: under the [place] tablet 00 tongue Medical every 5 Branch (five) minutes as needed for Chest pain for up to 90 doses. nitroglycer Yes [id number] .3mg Place 1 Univers in 0.3 mg 9-20 tablet ity of sublingual 00:00: under the [place] tablet 00 tongue Medical every 5 Branch (five) minutes as needed for Chest pain for up to 90 doses. rosuvastati 2021- No [id number] 5mg Take 1 Univers n 5 mg 9-20 12-20 tablet by ity of tablet 00:00: 05:59 mouth at [place] 00 :00 bedtime Medical for 90 Branch days. rosuvastati 2021- No [id number] 5mg Take 1 Univers n 5 mg [...] 01/23/22 Branch at 0630, JOCELYN nirmatrelvi Yes [id number] 2{tbl} Take 2 Univers r-ritonavir 01-23 [id number] tablets by i ty of (PAXLOVID, 00:00: mouth in [place] EUA,) 00 the Medical 150-100 mg morning Branch tablet and 2 tablets in the evening. nirmatrelvi 2021- No [id number] 2{tbl} Take 2 Univers r-ritonavir 01-23 [id number] tablets by ity of (PAXLOVID, 00:00: 00:00 mouth in [place] EUA,) 00 :00 the Medical 150-100 mg morning Branch tablet and 2 tablets in the evening. ibuprofen 2021- No 600mg 600 mg, Uni vers (IBU) 01-06 Oral, ity of tablet 600 11:30: 11:23 ONCE, 1 [place] mg 00 :00 dose, On Medical Mon Branch 01/06/22 at 0630, JOCELYN iopamidol 2021- No [id number] 70mL 70 mL, Univers (ISOVUE 12-18 Intravenou ity o f 370-500 mL) 01:30: 01:30 s, ONCE, 1 [place] injection 00 :00 dose, On Medica l 70 mL Tue Branch 12/17/21 at 2030, Routine ALPRAZOLAM Yes 1mg Take 1 mg Un [place] (XANAX XR 7-01 by mouth ity of ORAL) 12:24: daily. [place] [address] Medical Branch Ascorbic 0 Yes 1000mg Take [...] mouth ity o f tablet 12:24: daily. [place] [address] Medical Branch tamsulosin 2022-0 Yes .4mg Take 0.4 Uni vers 0.4 mg 24 7-01 mg by ity of hr capsule 12:24: mouth [place] [address] daily. Medical Branch traMADOL 50 Yes 100mg [...] mouth 2 it y of 12:24: (two) [place] [address] times Medical daily with Branch meals. gabapentin Yes 100mg Take 100 Un [place] 100 mg 7-01 mg by ity of capsule 12:24: mouth 2 [place] [address] (two) Medical times Branch daily. rosuvastati Yes 5mg Take 5 mg U nivers n 5 mg 7-01 by mouth ity of tablet 12:24: at [place] [address] bedtime. Medical Branch FUROSEMIDE Yes 40mg Take 40 mg U nivers ORAL 7-01 by mouth 2 ity of 12:24: (two) [place] [address] times Medical daily. Branch ALPRAZOLAM Yes 1mg Take 1 mg Un [place] (XANAX XR 7-01 by mouth ity of ORAL) 12:24: daily. [place] [address] Medical Branch Ascorbic Yes 1000mg Take 1,000 U nivers Acid 1,000 7-01 mg by ity of mg TbSR 12:24: mouth 2 [place] [address] (two) Medical times Branch daily. Cholecalcif Yes [...] 7-01 mcg by ity of 12:24: mouth [place] [address] daily. Medical Branch levothyroxi 2022-0 Yes 50ug Take 50 Uni vers ne 50 mcg 7-01 mcg by ity of tablet 12:24: mouth [place] [address] every Medical morning. Branch magnesium 0 Yes 400mg Take 400 Uni vers oxide 400 7-01 mg by ity of mg tablet 12:24: mouth [place] [address] daily. Medical Branch pantoprazol 0 Yes 40mg Take 40 mg Univers e 40 mg EC 7-01 by mouth ity o f tablet 12:24: daily. [place] [address] Medical Branch tamsulosin 0 Yes .4mg Take 0.4 Uni vers 0.4 mg 24 7-01 mg by ity of hr capsule 12:24: mouth [place] [address] daily. Medical Branch traMADOL 50 2021-0 Yes 100mg Take 100 U nivers mg tablet 7- mg by ity of 12:24: mouth [place] [address] every 8 Medical (eight) Branch hours as needed for Pain (scale 4-6) or Pain (scale 7-10). May take 1 to 2 tablets Q8H as needed for pain glimepiride 0 Yes 1mg Take 1 mg U nivers 1 mg tablet 7- by mouth 2 it y of 12:24: (two) [place] [address] times [facility] daily with Branch meals. gabapentin 0 Yes 100mg Take 100 Un [place] 100 mg 7-01 mg by ity of capsule 12:24: mouth 2 [place] [address] (two) Medical times [place] daily. rosuvastati 0 Yes 5mg Take 5 mg U nivers n 5 mg 7-01 by mouth ity of tablet 12:24: at [place] [address] bedtime. Medical Branch FUROSEMIDE 2021-0 Yes 40mg Take 40 mg U nivers ORAL 7-01 by mouth 2 ity of 12:24: (two) [place] [address] times Medical daily. Branch ALPRAZOLAM 0 Yes 1mg Take 1 mg [place] (XANAX XR 7-01 by mouth ity of ORAL) 12:24: daily. [place] [address] Medical Branch Ascorbic 2021-0 Yes 1000mg Take 1,000 U nivers Acid 1,000 7-01 mg by ity of mg TbSR 12:24: mouth 2 [place] [address] (two) Medical times [place] daily. Cholecalcif 2021-0 Yes 400U Take 400 [...] mouth ity o f tablet 12:24: daily. [place] [address] Medical Branch tamsulosin 0 Yes .4mg Take 0.4 Uni vers 0.4 mg 24 7-01 mg by ity of hr capsule 12:24: mouth [place] 33 daily. Medical Branch traMADOL 50 Yes 100mg Take 100 U nivers mg tablet 7-01 mg by ity of 12:24: mouth [place] [address] every 8 Medical (eight) Branch hours as needed for Pain (scale 4-6) or Pain (scale 7-10). May take 1 to 2 tablets Q8H as needed for pain glimepiride 0 Yes 1mg Take 1 mg U nivers 1 mg tablet 7-01 by mouth 2 it y of 12:24: (two) [place] [address] times Medical daily with Branch meals. gabapentin 0 Yes 100mg Take 100 [place] 100 mg 7-01 mg by ity of capsule 12:24: mouth 2 [place] [address] (two) Medical times Branch daily. rosuvastati 0 Yes 5mg Take 5 mg U nivers n 5 mg 7-01 by mouth ity of tablet 12:24: at [place] [address] bedtime. Medical Branch FUROSEMIDE 0 Yes 40mg Take 40 mg U nivers ORAL 7-01 by mouth 2 ity of 12:24: (two) [place] [address] times Medical daily. Branch ALPRAZOLAM 0 Yes 1mg Take 1 mg [place] (XANAX XR 7-01 by mouth ity of ORAL) 12:24: daily. [place] [address] Medical Branch Ascorbic 0 Yes 1000mg Take [...] by ity of mg tablet 12:24: mouth [place] [address] daily. Medical Branch pantoprazol 0 Yes 40mg Take 40 mg Univers e 40 mg EC 7-01 by mouth ity o f tablet 12:24: daily. [place] [address] Medical Branch tamsulosin 0 Yes .4mg Take 0.4 Uni vers 0.4 mg 24 7-01 mg by ity of hr capsule 12:24: mouth [place] [address] daily. Medical Branch traMADOL 50 2021-0 Yes [...] by ity of capsule 12:24: mouth 2 [place] [address] (two) Medical times Branch daily. rosuvastati Yes 5mg Take 5 mg U nivers n 5 mg 7-01 by mouth ity of tablet 12:24: at [place] [address] bedtime. Medical Branch FUROSEMIDE 0 Yes 40mg Take 40 mg U nivers ORAL 7-01 by mouth 2 ity of 12:24: (two) [place] [address] times Medical daily. Branch ALPRAZOLAM Yes 1mg Take 1 mg [place] (XANAX XR 7-01 by mouth ity of ORAL) 12:24: daily. [place] [address] Medical Branch Ascorbic 0 Yes 1000mg Take 1,000 U nivers Acid 1,000 7-01 mg by ity of mg TbSR 12:24: mouth 2 [place] [address] (two) Medical times Branch daily. Cholecalcif Yes [...] 7-01 mcg by ity of 12:24: mouth [place] [address] daily. Medical Branch levothyroxi Yes 50ug Take 50 Uni vers ne 50 mcg 7-01 mcg by ity of tablet 12:24: mouth [place] [address] every Medical morning. Branch magnesium Yes 400mg Take 400 Uni vers oxide 400 7-01 mg by ity of mg tablet 12:24: mouth [place] [address] daily. Medical Branch pantoprazol Yes 40mg Take 40 mg Univers e 40 mg EC 7-01 by mouth ity o f tablet 12:24: daily. [place] [address] Medical Branch tamsulosin 0 Yes .4mg Take 0.4 Uni vers 0.4 mg 24 7-01 mg by ity of hr capsule 12:24: mouth [place] [address] daily. Medical Branch traMADOL 50 0 Yes 100mg Take 100 U nivers mg tablet 7-01 mg by ity of 12:24: mouth [place] [address] every 8 Medical (eight) Branch hours as needed for Pain (scale 4-6) or Pain (scale 7-10). May take 1 to 2 tablets Q8H as needed for pain glimepiride Yes 1mg Take 1 mg U nivers 1 mg tablet 11-22 by mouth 2 it y of 12:24: (two) [place] [address] times [facility] daily with Branch meals. gabapentin Yes 100mg Take 100 Un [place] 100 mg 11-22 mg by ity of capsule 12:24: mouth 2 [place] [address] (two) Medical times Branch daily. rosuvastati Yes 5mg Take 5 mg U nivers n 5 mg 11-22 by mouth ity of tablet 12:24: at [place] [address] bedtime. Medical Branch FUROSEMIDE Yes 40mg Take 40 mg U nivers ORAL 11-22 by mouth 2 ity of 12:24: (two) [place] [address] times [facility] daily. Branch rivaroxaban 2021- No 20mg Take [...] 00:00 (two) [place] 32 :00 times [facility] daily. Branch atorvastati 2021- No 20mg Take 20 mg Univers n 20 mg 11-22 by mouth ity of tablet 10:55: 00:00 daily. [place] 32 :00 Medical Branch tamsulosin Yes .4mg 0.4 mg, Univ ers (FLOMAX) 11-22 Oral, QHS, ity o f capsule 0.4 02:00: First dose [place] mg 00 on [facility] 11/21/21 at [place] 2100, Until Discontinu ed, Routine lisinopriL 2021- No [id number] 10mg Take 2 Univers 5 mg tablet 11-22 tablets by i ty of 00:00: 04:59 mouth [place] 00 :00 daily for Medical 30 days. [place] lisinopriL 2021- No [id number] 10mg Take 2 Univers 5 mg tablet 11-22 tablets by i ty of 00:00: 04:59 mouth [place] 00 :00 daily for Medical 30 days. [place] lisinopriL 2021- No [id number] 10mg Take 2 Univers 5 mg tablet 11-22 tablets by i ty of 00:00: 04:59 mouth [place] 00 :00 daily for Medical 30 days. [place] cyanocobala 2021- No 1000ug 1,000 mcg, Univers min 11-21 07-07 Subcutaneo ity of (VITAMIN 16:15: 13:59 us, DAILY, [place] B12) 00 :00 7 doses, Medical injection First dose Bran ch 1,000 mcg on [place] 11/21/21 at 1115, Last dose on Thu11/27/21 at 0900, Routine ergocalcife 2021- No [id number] 50,000 [facility] 11-21 06-30 Units, ity of (vitamin 16:15: 17:24 Oral, [place] d2) 00 :00 QWEEKLY, 1 Medical (CALCIFEROL dose, [place] ) capsule First dose 50,000 on [facility] Units 11/21/21 at 1145, Routine bisacodyL Yes 10mg 10 mg, Univer s (DULCOLAX) 11-20 Rectal, ity of suppository 20:10: QDAILYPRN, [place] 10 mg 49 Starting Medical on Thu [place] 11/20/21 at 1510, Until Discontinu ed, Routine, [...] First dose [place] mg 00 on [facility] Medical 11/18/21 at Branch 2100, Until Discontinu [...] First dose Medi anabell 15 mg on [facility] Branch 11/18/21 at 0900, Until Discontinu ed, Routine glipiZIDE 2021- No 5mg 5 mg, Univer s (GLUCOTROL) 11-18 Oral, ity of tablet 5 mg 14:00: 18:19 DAILY, [place] 00 :49 First dose Medical on [facility] Branch 11/18/21 at 0900, Until Discontinu ed, Routine spironolact 2021- No 12.5mg 12.5 mg, Univers one 11-18 Oral, ity of (ALDACTONE) 14:00: 16:13 DAILY, [place] tablet 12.5 00 :25 First dose Me dical mg on [facility] Branch 11/18/21 at 0900, Until Discontinu ed, Routine furosemide No 40mg 40 mg, Univ ers (LASIX) 11-18 Oral, ity of tablet 40 14:00: 16:13 QAM+PM, [place] mg 00 :19 First dose Medical on [facility] 11/18/21 at 0900, Until Discontinu ed, Routine azithromyci No 500mg 500 mg, IV Univers n 11-18 Piggyback, ity of (ZITHROMAX) 13:30: 18:17 Q24H ABX, [place] 500 mg in 00 :58 First dose Medi anabell NaCl 0.9% on [facility] (NS) 250 mL 11/18/21 at VIAL-MATE [...] First dose Medical (HumaLOG) + on [facility] Branch Fsbg 11/18/21 at Testing 0800, Until Discontinu ed, Routine apixaban 2022-0 Yes 5mg 5 mg, Univers (ELIQUIS) 11-18 Oral, BID, ity of tablet 5 mg 13:00: First dose [place] 00 on [facility] 11/18/21 at Branch 0800, Until Discontinu ed, Routine
Indicatio ns: Non-Valvul ar Atrial Fibrillati on gabapentin 0 Yes 100mg 100 mg, Uni vers (NEURONTIN) 11-18 Oral, TID, it y of capsule 100 13:00: First dose [place] mg 00 on [facility] 11/18/21 at Branch 0800, Until Discontinu ed, Routine metoprolol 0 Yes 50mg 50 mg, Unive rs succinate 11-18 Oral, BID, ity of XL (TOPROL 13:00: First dose [place] XL) tablet 00 on [facility] 50 mg 11/18/21 at Branch 0800, Until Discontinu ed, Routine magnesium 2021-0 202- No 400mg 400 mg, Uni vers oxide 11-18 06-28 Oral, BID, ity of (MAG-OX 13:00: 16:50 First dose [place] 400) tablet 00 :44 on [facility] Medica l 400 mg 11/18/21 at Branch 0800, Until Discontinu ed, Routine ondansetron 0 Yes 4mg 4 mg, Slow Univers (ZOFRAN 11-18 IV Push, ity of (PF)) 12:31: Q6HPRN, [place] injection 4 32 Starting Medi anabell mg on [facility] 11/18/21 at 0731, Until Discontinu ed, Routine, Nausea and Vomiting (N/V) sennosides 0 Yes 8.6mg 8.6 mg, Uni vers (SENOKOT) 11-18 Oral, BID, ity of tablet 8.6 12:30: First dose [place] mg 00 on [facility] 11/18/21 at Branch 0730, Until Discontinu ed, Routine docusate 0 Yes 100mg 100 mg, Unive rs (COLACE) 11-18 Oral, BID, ity o f capsule 100 12:30: First dose [place] mg 00 on [facility] 11/18/21 at Branch 0730, Until Discontinu [...] 14 Starting Medical injection 1 on Thu [facility] 11/18/21 at 0724, Until Discontinu [...] as mg 00 :00 dose, On Medical [facility] 11/18/21 at 0645, JOCELY[place] cefTRIAXone No 1000mg 1,000 mg, Univers (ROCEPHIN) 11-18 IV ity of 1,000 mg in 11:30: 11:07 [facility] [place] NaCl 0.9% 00 :00 ONCE, 1 [...] at piggyback 0845, JOCELYN iopamidol 2021-2021- No [id number] 120mL 120 mL, Univers (ISOVUE 09-11 Intravenou [...] 09/11/21 at 0630, JOCELYN ondansetron 2021- Yes [id number] 4mg Take 1 Univers 4 mg 4-20 tablet by ity of disintegrat 00:00: mouth [place] ing tablet 00 every 8 Medica l (eight) Branch hours as needed for Nausea and Vomiting (N/V). ondansetron 2021-0 2021- No [id number] 4mg Take 1 Univers 4 mg 4-20 [...] 00 :00 dose, On Medi anabell mg [place] 07/25/21 Branch at 1645, JOCELYN NaCl 0.9% [...] at 2215, J[place]ELY[place] iopamidol 0 2021- No [id number] 100mL 100 mL, Univers (ISOVUE 07-13 Intravenou [...] 07/12/21 at 2030, JOCELYN ondansetron 2021-0 Yes [id number] 4mg Take 1 Univers (ZOFRAN) 4 2-18 tablet by ity of mg tablet 00:00: mouth [place] 00 every 8 Medical (eight) Branch hours as needed for Nausea and Vomiting (N/V). ondansetron 2022-0 Yes [id number] 4mg Take 1 Univers (ZOFRAN) 4 2-18 tablet by ity of mg tablet 00:00: mouth [place] 00 every 8 Medical (eight) Branch hours as needed for Nausea and Vomiting (N/V). ondansetron 2022-0 Yes [id number] 4mg Take 1 Univers (ZOFRAN) 4 2-18 tablet by ity of mg tablet 00:00: mouth [place] 00 every 8 Medical (eight) Branch hours as needed for Nausea and Vomiting (N/V). ondansetron 2021- No [id number] 4mg Take 1 Univers (ZOFRAN) 4 2-18 - tablet by ity of mg tablet 00:00: 00:00 mouth [place] 00 :00 every 8 Medical (eight) Branch hours as needed for Nausea and Vomiting (N/V). aspirin 81 2020-05- No [id number] 81mg Take 1 Univers mg chewable 0-06 11-06 tablet by it y of tablet 00:00: 04:59 mouth [place] 00 :00 daily for Medical 30 days. Branch furosemide 2020-05- No [id number] 60mg Take 3 Univers 20 mg 0-06 11-06 tablets by ity of tablet 00:00: 04:59 mouth [place] 00 :00 every Medical morning Branch and evening for 30 days. aspirin 81 2020-05- No [id number] 81mg Take 1 Univers mg chewable 0-06 11-06 tablet by it y of tablet 00:00: 04:59 mouth [place] 00 :00 daily for Medical 30 days. Branch furosemide 2020-05- No [id number] 60mg Take 3 Univers 20 mg 0-06 [...] by ity of mg tablet 20:20: mouth [place] [address] daily. Medical Branch pantoprazol 2020-05 Yes 40mg Take 40 mg Univers e 40 mg EC 0-05 by mouth ity o f tablet 20:20: daily. [place] [address] Medical Branch tamsulosin 2020-05 Yes .4mg Take 0.4 Uni vers 0.4 mg 24 0-05 mg by ity of hr capsule 20:20: mouth [place] [address] daily. Medical Branch traMADOL 50 2020-05 Yes [...] mouth 2 it y of 20:20: (two) [place] [address] times [facility] daily with Branch meals. gabapentin 2020-05 Yes 100mg Take 100 [place] 100 mg 0-05 mg by ity of capsule 20:20: mouth 2 [place] [address] (two) Medical times Branch daily. rosuvastati 2020-05 Yes 5mg Take 5 mg U nivers n 5 mg 0-05 by mouth ity of tablet 20:20: at [place] [address] bedtime. Medical Branch ALPRAZOLAM 2020-05 Yes 1mg Take 1 mg [place] (XANAX XR 0-05 by mouth ity of ORAL) 20:20: every 8 [place] [address] (eight) Medical hours as Branch needed. Ascorbic [...] mouth ity o f tablet 20:20: daily. [place] [address] Medical Branch tamsulosin 2020-05 Yes .4mg Take [...] mouth 2 it y of 20:20: (two) [place] [address] times Medical daily with Branch meals. gabapentin [...] mouth ity o f tablet 20:20: daily. [place] [address] Medical Branch tamsulosin 2020-05 Yes .4mg Take [...] 2 [place] 16 (two) Medical times [place] daily. rosuvastati 2020-05 Yes 5mg Take 5 mg U nivers n 5 mg 0-05 by mouth ity of tablet 20:20: at [place] [address] bedtime. Medical Branch lisinopril 2020-05- No 10mg [...] 2 [place] 23 :00 (two) Medical times [place] daily. isosorbide 2020-05- No 30mg Take 30 mg Univers mononitrate 0-05 10-05 by mouth ity of 30 mg 24 hr 17:14: 00:00 daily. [place] tablet 23 :00 Medical Branch furosemide 2020-05 Yes 60mg 60 mg, Unive rs (LASIX) 0-05 Oral, ity of tablet 60 14:00: QAM+PM, [place] mg 00 First dose Medical on [facility] 02/26/21 at 0900, Until Discontinu ed, Routine tamsulosin 2020-05 Yes .4mg 0.4 mg, Univ ers (FLOMAX) 0-05 Oral, ity of capsule 0.4 14:00: DAILY, [place] mg 00 First dose Medical on [facility] 02/26/21 at 0900, Until Discontinu ed, Routine sennosides- 2020-05 Yes 1{tbl} 1 tablet, [facility] docusate 0-05 Oral, ity of sodium 14:00: DAILY, [place] (SENOKOT-S) 00 First dose Me dical 8.6-50 mg on [facility] per tablet 02/26/21 at 1 tablet 0900, Until Discontinu ed, Routine polyethylen 2020-05 Yes 17g 17 g, Unive rs e glycol 0-05 Oral, ity of 3350 powder 14:00: DAILY, [place] 17 g 00 First dose Medical on [facility] 02/26/21 at 0900, Until Discontinu ed, Routine pantoprazol 2020-05 Yes 40mg 40 mg, Univ ers e 0-05 Oral, ity of (PROTONIX) 14:00: DAILY, [place] EC tablet 00 First dose Medi anabell 40 mg on [facility] 02/26/21 at 0900, Until Discontinu ed, Routine aspirin 2020-05 Yes 81mg 81 mg, Univers chewable 0-05 Oral, ity of tablet 81 14:00: DAILY, [place] mg 00 First dose Medical on [facility] 02/26/21 at 0900, Until Discontinu ed, Routine digoxin 2020-05 Yes 125ug 125 [facility]cg, [facility] ([facility] 0-05 Oral, ity of tablet 125 14:00: DAILY, [place] mcg 00 First dose Medical on [facility] 02/26/21 at 0900, Until Discontinu ed, Routine magnesium 2020-05 Yes 400mg 400 mg, Univ ers oxide 0-05 Oral, ity of (MAG-OX 14:00: DAILY, [place] 400) tablet 00 First dose Me dical 400 mg on [facility] 02/26/21 at 0900, Until Discontinu ed, Routine Sliding 2020-05 Yes Subcutaneo Univ ers Scale 0-05 us, AC, ity of Insulin-Reg 12:30: First dose [place] ular + Fsbg 00 on [facility] 02/26/21 at Branch 0730, Until Discontinu ed, Routine glucagon 2020-05 Yes 1mg 1 mg, Univers (GLUCAGEN 0-05 Intramuscu ity of DIAGNOSTIC 11:07: [place], PRN, [place] KIT) 13 Starting Medical injection 1 on [facility] Branch mg 02/26/21 at 0607, Until Discontinu ed, JOCELYN, Blood Glucose < or = 70 mg/dL and patient is unable to swallow or has mental changes. dextrose 50 2020-05 Yes 25mL 25 mL, Univ ers % in water 0-05 Slow IV ity of (D50W) 11:07: Push, PRN, [place] injection 13 Starting Medica l 25 mL on [facility] Branch 02/26/21 at 0607, Until Discontinu ed, JOCELYN, Blood Glucose < or = 70 mg/dL and patient is unable to swallow or has mental status changes. levothyroxi 2020-05 Yes 50ug 50 mcg, Uni vers ne 0-05 Oral, ity of (SYNTHROID) 11:00: QAM-0600, [place] tablet 50 00 First dose Medi anabell mcg on [facility] Branch 02/26/21 at 0600, Until Discontinu ed, Routine diltiazem 2020-05 Yes 10mg 10 mg, Univer s (CARDIZEM 0-05 Slow IV ity of IV) 10:56: Push, [place] injection 56 Q4HPRN, Medical 10 mg Starting Branch on [facility] 02/26/21 at 0556, Until Discontinu ed, Routine, For HR > 120
Fac ulty member approving Restricted medication : RICKY WEEKS calcium 2020-05 No 1g 1 g, IV Univer s gluconate 1 0-05 10-05 Infusion, it y of g in NaCl 08:30: 07:36 ONCE, 1 [place] 50 mL 00 :00 dose, On Medical (ISO-OSM) [facility] RTU IV 02/26/21 at infusion 1 0330, g Routine cyclobenzap 2020-05 No 10mg 10 mg, Uni vers rine 0-05 10-05 Oral, ity of (FLEXERIL) 07:30: 07:23 ONCE, 1 [place] tablet 10 00 :00 dose, On Medica l mg [facility] Branch 02/26/21 at 0230, Routine sodium 2020-05 No 15g 15 g, Univers polystyrene 0-05 10-05 Oral, ity of sulfonate 07:30: 07:02 ONCE, 1 [place] (KAYEXALATE 00 :00 dose, On [facility] ) 15 Thu Branch gram/60 mL [...] [place] (HUMULIN R) 00 :00 dose, On [facility] injection [facility] 10 Units 02/26/21 at 0215, Routine melatonin 2020-05 Yes 6mg 6 mg, Univers (MELATIN) 0-05 Oral, ity of tablet 6 mg 03:16: QHSPRN, [place] 26 Starting Medical on [facility] 02/25/21 at 2216, Until Discontinu ed, Routine, Insomnia rosuvastati 2020-05 Yes 5mg 5 mg, Unive rs n (CRESTOR) 0-05 Oral, QHS, it y of tablet 5 mg 02:00: First dose [place] 00 on [facility] 02/25/21 at Branch 2100, Until Discontinu ed, Routine gabapentin 2020-05 Yes 100mg 100 mg, Uni vers (NEURONTIN) 0-05 Oral, BID, it y of capsule 100 01:00: First dose [place] mg 00 on [facility] 02/25/21 at Branch 1999, Until Discontinu ed, Routine metoprolol 2020-05 Yes 50mg 50 mg, Unive rs succinate 0-05 Oral, BID, ity of XL (TOPROL 01:00: First dose [place] XL) tablet 00 on [facility] 50 mg 02/25/21 at Branch 1999, Until Discontinu ed, Routine apixaban 2020-05 Yes 5mg 5 mg, Univers (ELIQUIS) 0-05 Oral, BID, ity of tablet 5 mg 01:00: First dose [place] 00 on [facility] 02/25/21 at Branch 1999, Until Discontinu ed, Routine furosemide 2020-05 No 40mg 40 mg, Univ ers (LASIX) 0-05 10-05 Slow IV ity of injection 01:00: 11:03 Push, [place] 40 mg 00 :04 Q12H, Medical First dose Branch on Thu02/25/21 at 2000, Until Discontinu ed, Routine isosorbide 2020-05- No [id number] 30mg Take 1 Univers mononitrate 0-05 11-05 tablet by it y of 30 mg 24 hr 00:00: 04:59 mouth [place] tablet 00 :00 daily for Medical 30 days. Branch KCL 10 mEq 2020-05- No [id number] 10meq Take 1 Univers tablet 0-05 11-05 tablet by ity of 00:00: 04:59 mouth [place] 00 :00 daily for Medical 30 days. Branch melatonin 3 2020-05 No [id number] 6mg Take 2 Univers mg tablet 0-05 11-05 tablets by ity of 00:00: 04:59 mouth at [place] 00 :00 bedtime as Medical needed for Branch Insomnia for up to 30 days. metoprolol 2020-05- No [id number] 50mg Take 1 Univers succinate 0-05 11-05 tablet by ity of XL 50 mg 24 00:00: 04:59 mouth 2 [place] hr tablet 00 :00 (two) Medical times [place] daily for 30 days. spironolact 2020-05- No [id number] 25mg Take 1 Univers one 25 mg 0-05 11-05 tablet by ity of tablet 00:00: 04:59 mouth [place] 00 :00 daily for Medical 30 days. Branch isosorbide 2020-05- No [id number] 30mg Take 1 Univers mononitrate 0-05 11-05 tablet by it y of 30 mg 24 hr 00:00: 04:59 [place] tablet 00 :00 daily for Medical 30 days. Branch KCL 10 mEq 2020-05- No [id number] 10meq Take 1 Univers tablet 0-05 11-05 tablet by ity of 00:00: 04:59 mouth [place] 00 :00 daily for Medical 30 days. Branch melatonin 3 2020-05- No [id number] 6mg Take 2 Univers mg tablet 0-05 11-05 tablets by ity of 00:00: 04:59 mouth at [place] 00 :00 bedtime as Medical needed for [place] Insomnia for up to 30 days. metoprolol 2020-05- No [id number] 50mg Take 1 Univers succinate 0-05 -05 tablet by ity of XL 50 mg 24 00:00: 04:59 mouth 2 [place] hr tablet 00 :00 (two) Medical times [place] daily for 30 days. spironolact 2020-05- No [id number] 25mg Take 1 Univers one 25 mg 0-05 -05 tablet by ity of tablet 00:00: 04:59 mouth [place] 00 :00 daily for Medical 30 days. Branch traMADoL 2020-05- No 50mg 50 mg, Univer s (ULTRAM) 0-04 10- Oral, ONCE ity of tablet 50 21:45: 20:37 NOW, 1 [place] mg 00 :00 dose, On Medical [facility] 02/25/21 at 1645, Routine ondansetron 2020-05 Yes 4mg 4 mg, Slow Univers (ZOFRAN 0-04 IV Push, ity of (PF)) 21:37: Q6HPRN, [place] injection 4 10 Starting Medi anabell mg on [facility] 02/25/21 at 1637, Until Discontinu ed, Routine, Nausea and Vomiting (N/V) traMADoL 2020-05- No 50mg 50 mg, Univer s (ULTRAM) 0-04 10-06 Oral, ity of tablet 50 21:36: 21:35 Q8HPRN, [place] mg 55 :55 Starting Medical on Thu [place] 02/25/21 at 1636, Until Thu02/27/21 at 1635, Routine, Pain (scale 4-6) acetaminoph 2020-05 Yes 650mg 650 mg, [place] en 0-04 Oral, ity of (TYLENOL) 21:36: Q6HPRN, [place] tablet 650 51 Starting Medic al mg on [facility] 02/25/21 at 1636, Until Discontinu ed, Routine, Pain (scale 1-3) diltiazem 2020-05- No 60mg 60 mg, Unive rs (CARDIZEM) 0-04 10-04 Oral, ONCE it y of tablet 60 21:30: 20:37 NOW, 1 [place] mg 00 :00 dose, On Medical [facility] 02/25/21 at 1630, Routine diltiazem 2020-05- No 2.5mg/h 2.5-15 [place] (CARDIZEM 0-04 10-05 mg/hr ity of IV) 125 mg 20:03: 10:57 (2.5-15 [place] in D5W 05 :18 mL/hr), IV Medical infusion Infusion, Branch TITRATE, rate control, HR <100 is goal, Starting on [facility] 02/25/21 at 1503
In itiate infusion at [...] :00 dose, On Medica l 10 mg [facility] 02/25/21 at 1500, STAT
Fa culty member approving Restricted medication : MONICO MARIEE aspirin 81 2020-05- No 81mg Take 81 mg Univers mg chewable 0-04 10-04 by mouth ity of tablet 16:38: 00:00 daily. [place] 43 :00 [facility] Branch atorvastati 2020-05- No 20mg Take 20 [...] 1 [place] mg 00 :00 dose, On [facility] 02/17/21 at 1600, JOCELYN ALPRAZOLAM Yes 1mg [...] by mouth ity of tablet 01:21: daily. [place] [address] Medical Branch magnesium Yes 400mg Take 400 [...] mouth ity o f tablet 01:21: daily. [place] [address] Medical Branch tamsulosin 0 Yes .4mg Take [...] mEq by ity of 01:21: mouth 2 [place] [address] (two) Medical times Branch daily. isosorbide 0 Yes 30mg Take 30 mg U nivers mononitrate 2-06 by mouth ity of 30 mg 24 hr 01:21: daily. [place] tablet [facility] Branch glimepiride Yes 1mg Take 1 mg U nivers 1 mg tablet 2-06 by mouth 2 it y of 01:21: (two) [place] [address] times [facility] daily with Branch meals. gabapentin 0 Yes 100mg Take 100 [place] 100 mg 2-06 mg by ity of capsule 01:21: mouth 2 (two) Medical times [place] daily. ALPRAZOLAM 0 Yes 1mg Take 1 mg [place] (XANAX XR 2-06 by mouth ity of ORAL) 01:21: every 8 [place] [address] (eight) Medical hours as Branch needed. Ascorbic 2020-0 Yes 1000mg Take 1,000 U nivers Acid 1,000 2-06 mg by ity of mg TbSR 01:21: mouth 2 [place] [address] (two) Medical times Branch daily. aspirin 81 2020-0 Yes 81mg Take 81 mg U nivers mg chewable 2-06 by mouth ity of tablet 01:21: daily. [place] [address] Medical Branch atorvastati 2020-0 Yes 20mg Take 20 mg Univers n 20 mg 2-06 by mouth ity of tablet 01:21: at [place] [address] bedtime. Medical Branch Cholecalcif Yes 400U Take [...] by mouth ity of tablet 01:21: daily. [place] [address] Medical Branch magnesium Yes 400mg Take 400 [...] mouth ity of ORAL) 01:21: every 8 [place] [address] (eight) Medical hours as Branch needed. Ascorbic Yes 1000mg Take 1,000 U nivers Acid 1,000 2-06 mg by ity of mg TbSR 01:21: mouth 2 [place] 07 (two) Medical times Branch daily. aspirin 81 Yes 81mg Take 81 mg U nivers mg chewable 2-06 by mouth ity of tablet 01:21: daily. [place] [address] Medical Branch atorvastati Yes 20mg Take 20 mg Univers n 20 mg 2-06 by mouth ity of tablet 01:21: at [place] [address] bedtime. Medical Branch Cholecalcif Yes 400U Take [...] Medical times Branch daily. spironolact 0 Yes [id number] 25mg Take 1 Univers one 25 mg 2-06 tablet by ity o f tablet 00:00: mouth [place] 00 daily. Medical Branch spironolact Yes [id number] 25mg Take 1 Univers one 25 mg 2-06 tablet by ity o f tablet 00:00: mouth [place] 00 daily. Medical Branch spironolact Yes [id number] 25mg Take 1 Univers one 25 mg 2-06 tablet by ity o f tablet 00:00: mouth [place] 00 daily. Medical Branch spironolact Yes [id number] 25mg Take 1 Univers one 25 mg 2-06 tablet by ity o f tablet 00:00: mouth [place] 00 daily. Medical Branch spironolact 2020- No [id number] 25mg Take 1 Univers one 25 mg [...] mouth ity of ORAL) 19:21: every 8 [place] [address] (eight) Medical hours as Branch needed. Ascorbic Yes 1000mg Take 1,000 U nivers Acid 1,000 2-05 mg by ity of mg TbSR 19:21: mouth 2 07 (two) Medical times Branch daily. aspirin 81 0 Yes 81mg Take 81 mg U nivers mg chewable 2-05 by mouth ity of tablet 19:21: daily. [place] [address] Medical Branch atorvastati Yes 20mg Take 20 mg Univers n 20 mg 2-05 by mouth ity of tablet 19:21: at [place] [address] bedtime. Medical Branch Cholecalcif Yes 400U Take [...] y of 19:21: (two) [place] times [facility] daily with Branch meals. gabapentin Yes 100mg [...] kg), Subcutaneo us, QHS, First dose on [facility] 06/28/20 at 2100, Until Discontinu ed, Routine atorvastati Yes 20mg 20 mg, Univ ers n (LIPITOR) 2-05 Oral, QHS, it y of tablet 20 03:00: First dose [place] mg 00 on [facility] 06/28/20 at Branch 2100, Until Discontinu ed, Routine metoprolol Yes [id number] 50mg Take 1 Univers succinate 2-05 tablet by ity o f XL 50 mg 24 00:00: mouth 2 [place] hr tablet 00 (two) Medical times Branch daily. metoprolol Yes [id number] 50mg Take 1 Univers succinate 2-05 tablet by ity o f XL 50 mg 24 00:00: mouth 2 [place] hr tablet 00 (two) Medical times Branch daily. metoprolol 0 Yes [id number] 50mg Take 1 Univers succinate 2-05 tablet by ity o f XL 50 mg 24 00:00: mouth 2 [place] hr tablet 00 (two) Medical times Branch daily. metoprolol 0 Yes [id number] 50mg Take 1 [facility] succinate 2-05 tablet by ity o f XL 50 mg 24 00:00: mouth 2 [place] hr tablet 00 (two) Medical times Branch daily. metoprolol 2020- No [id number] 50mg Take 1 [facility] succinate 2-05 10-05 tablet by ity of XL 50 mg 24 00:00: 00:00 mouth 2 [place] hr tablet 00 :00 (two) Medical times [place] daily. glucagon Yes 1mg 1 mg, Univers [...] injection 15 Starting Medica l 25 mL [facility] 06/28/20 Branch at 1645, Until Discontinu ed, JOCELYN, Blood Glucose < or = 70 mg/dL and patient is unable to swallow or has mental status changes. cyanocobala 2020- No 1000ug 1,000 mcg, Univers min 06-28-04 Intramuscu ity of (VITAMIN 21:31: 22:58 [place], ONCE, [place] B12) 00 :00 1 dose, Medical injection [facility] 06/28/20 Bran ch 1,000 mcg at 1545, Routine morpHINE 2020- No 2mg 2 mg, Slow [place] injection 2 06-28 02-04 IV Push, ity of mg 20:45: 19:54 ONCE NOW, [place] 00 :00 1 dose, Medical [facility] 06/28/20 Branch at 1445, Routine apixaban Yes [...] s mg 00 First dose Medical on [facility] Branch 06/28/20 at 0900, Until Discontinu ed, Routine Polyethylen Yes 17g 17 g, Unive rs e Glycol 2-04 Oral, ity of 3350 15:00: QTUE/THURS [place] (MIRALAX) 00 /SAT, Medical powder 17 g First dose Br anch on [facility] 06/28/20 at 0900, Until Discontinu ed, Routine pantoprazol Yes 40mg 40 mg, Univ ers e 2-04 Oral, ity of (PROTONIX) 15:00: DAILY, [place] EC tablet 00 First dose Medi anabell 40 mg on [facility] Branch 06/28/20 at 0900, Until Discontinu ed, Routine magnesium Yes 400mg 400 mg, Univ ers oxide 2-04 Oral, ity of (MAG-OX 15:00: DAILY, [place] 400) tablet 00 First dose Me dical 400 mg on [facility] Branch 06/28/20 at 0900, Until Discontinu ed, Routine isosorbide Yes 30mg 30 mg, Unive rs mononitrate 2-04 Oral, ity of (IMDUR) 24 15:00: DAILY, [place] hr tablet 00 First dose Medi anabell 30 mg on [facility] Branch 06/28/20 at 0900, Until Discontinu ed, Routine digoxin Yes 125ug 125 mcg, Unive rs (LANOXIN) 2-04 Oral, ity of tablet 125 15:00: DAILY, [place] mcg 00 First dose Medical on [facility] Branch 06/28/20 at 0900, Until Discontinu ed, Routine Sliding Yes Subcutaneo Univ ers Scale 2-04 us, TID ity of Insulin - 14:00: MEALS+HS, [place] Lispro 00 First dose Medical (HumaLOG) + on [facility]sbg 06/28/20 at Testing 0800, Until Discontinu ed, Routine sennosides- Yes 1{tbl} 1 tablet, Univers docusate 2-04 Oral, BID, ity o f sodium 14:00: First dose [place] (SENOKOT-S) 00 on [facility] 8.6-50 mg 06/28/20 at [facility] h per tablet 0800, 1 tablet Until Discontinu ed, Routine KCL 2020-0 Yes 10meq 10 mEq, Univers (KLOR-CON 2-04 Oral, BID, ity of M10) tablet 14:00: First dose [place] 10 mEq 00 on [facility] 06/28/20 at Branch 0800, Until Discontinu ed, Routine gabapentin 2020-0 Yes 100mg 100 mg, Uni vers (NEURONTIN) 2-04 Oral, BID, it y of capsule 100 14:00: First dose [place] mg 00 on [facility] 06/28/20 at Branch 0800, Until Discontinu ed, Routine glipiZIDE 0 Yes 2.5mg 2.5 mg, Univ ers (GLUCOTROL) 2-04 Oral, ity of tablet 2.5 13:30: BIDAC, [place] mg 00 First dose Medical on [facility] 06/28/20 at 0730, Until Discontinu ed, Routine levothyroxi Yes 50ug 50 mcg, Uni vers ne 2-04 Oral, ity of (SYNTHROID) 12:00: QAM-0600, [place] tablet 50 00 First dose Medi anabell mcg on [facility] 06/28/20 at 0600, Until Discontinu ed, Routine furosemide 2020- No 80mg 80 mg, IV U nivers (LASIX) 06-28 02-05 Push, Q8H, ity o f injection 12:00: 17:27 First dose [place] 80 mg 00 :59 on [facility] 06/28/20 at Branch 0600, Until Discontinu ed, Routine spironolact 0 Yes 25mg 25 mg, Univ ers one 2-04 Oral, ity of (ALDACTONE) 09:00: DAILY, [place] tablet 25 00 First dose Medi anabell mg on [facility] 06/28/20 at 0300, Until Discontinu ed, Routine metoprolol 0 Yes 50mg 50 mg, Unive rs succinate 2-04 Oral, BID, ity of XL (TOPROL 09:00: First dose [place] XL) tablet 00 on [facility] 50 mg 06/28/20 at Branch 0300, Until Discontinu ed, Routine ondansetron 2021-0 Yes 4mg 4 mg, Slow Univers (ZOFRAN 2-04 IV Push, ity of (PF)) 08:53: Q6HPRN, [place] injection 4 48 Starting Medi anablel mg [facility] 06/28/20 Branch at 0253, Until Discontinu ed, Routine, Nausea and Vomiting (N/V) melatonin 2020- Yes 3mg 3 mg, Univers (MELATIN) 2-04 Oral, QHS, ity of tablet 3 mg 08:45: First dose [place] 00 on [facility] 06/28/20 at Branch 0245, Until Discontinu ed, Routine aspirin Yes 81mg 81 mg, Univers chewable 2-04 Oral, QAM ity of tablet 81 08:45: WITH [facility] 00 BREAKFAST, Medical First dose Branch on [facility] 06/28/20 at 0245, Until Discontinu ed, Routine [...] capsule 21 :00 times Medical daily with [place] meals. Psyllium 2020- No 1{packa Take 1 [...] mouth ity of mg tablet 15:34: daily. [place] [address] Medical Branch cyanocobala Yes 5000ug Take 5,000 [...] by mouth ity of tablet 15:34: daily. [place] [address] Medical Branch lubiproston Yes 8ug Take 8 [...] mouth ity o f tablet 15:34: daily. [place] [address] Medical Branch Psyllium 2018-0 Yes 1{packa Take [...] by mouth ity of ORAL) 15:34: daily. [address] Branch Ascorbic 2018-0 Yes 1000mg Take 1,000 U nivers Acid 1,000 5-16 mg by ity of mg TbSR 15:34: mouth 2 [place] 30 (two) Medical times Branch daily. aspirin 81 2018-0 Yes 81mg Take 81 mg U nivers mg chewable 5-16 by mouth ity of tablet 15:34: daily. [address] Branch atorvastati 2017-0 Yes 20mg Take [...] mouth ity of mg tablet 15:34: daily. [place] [address] Medical Branch cyanocobala Yes 5000ug Take 5,000 [...] by mouth ity of tablet 15:34: daily. [address] Branch lubiproston Yes 8ug Take 8 mcg Univers e (AMITIZA) 5-16 by mouth 2 it y of 8 mcg 15:34: (two) [place] capsule 30 times Medical daily with Branch meals. magnesium Yes 400mg Take 400 Uni vers oxide 400 5-16 mg by ity of mg tablet 15:34: mouth [place] 30 daily. [facility] Branch OMEGA-3 Yes 1000mg Take 1,000 [place] FATTY 5-16 mg by ity of ACIDS/FISH 15:34: mouth 2 [place] OIL (OMEGA 30 (two) Medical 3 FISH OIL times Branch ORAL) daily. pantoprazol Yes 40mg Take 40 mg Univers e 40 mg EC 5-16 by mouth ity o f tablet 15:34: daily. [address] Psyllium Yes 1{packa Take 1 Univ [...] by mouth ity of ORAL) 15:34: daily. [place] [address] Medical Branch Ascorbic 0 Yes 1000mg Take [...] by mouth ity of ORAL) 15:34: daily. [place] [address] Medical Branch Ascorbic 20180 Yes 1000mg Take 1,000 U nivers Acid 1,000 5-16 mg by ity of mg TbSR 15:34: mouth 2 [place] 30 (two) Medical times Branch daily. aspirin 81 2018 Yes 81mg Take 81 mg U nivers mg chewable 5-16 by mouth ity of tablet 15:34: daily. [place] [address] Medical Branch atorvastati Yes 20mg Take 20 [...] mouth ity of mg tablet 15:34: daily. [place] [address] Medical Branch cyanocobala Yes 5000ug Take 5,000 [...] by mouth ity of tablet 15:34: daily. [place] [address] Medical Branch lubiproston 0 Yes 8ug Take [...] 2 30 (two) Medical times Branch daily. metoprolol 2017- Yes 50mg Take 1 Unive rs tartrate [...] hours as needed for Cough. benzonatate 2016-05 No 100mg Take 1 [place] 100 mg 07-02 10 capsule by ity of capsule 00:00: 00:00 mouth [place] 00 :00 every 8 Medical (eight) Branch hours as needed for Cough. metoprolol 2016-05 No 50mg Take 1 Univ ers tartrate 50 07-02 02-05 tablet by it y of mg tablet 00:00: 00:00 mouth 2 [place] 00 :00 (two) Medical times Branch daily. apixaban 2015-05 [...] 17g Take 1 Uni vers e Glycol -11-22 Packet by ity o f 3350 00:00: 00:00 mouth [place] (MIRALAX) 00 :00 daily. Medical 17 gram Branch powder sennosides- 2015-05- No 1{tbl} Take 1 U nivers docusate -15 - tablet by ity o f sodium 00:00: [...] Levothyrox ne Sodium ne Sodium ine Sodium Vital Signs Vital Name Observation Time Observation Value Comments Source height 2022-05-27 13:00:00 70.5 [in_i] [facility] weight 2022-05-27 13:00:00 177 [lb_av] [facility] temperature 2022-05-27 13:00:00 97.9 [degF] [facility] bmi 2022-05-27 13:00:00 25.04 kg/m2 [facility] blood pressure 2022-05-27 13:00:00 102 mm[Hg] [facility] - systolic [facility] blood pressure 2022-05-27 13:00:00 60 mm[Hg] [facility] - diastolic [facility] Systolic blood 2022-02-11 20:28:00 127 mm[Hg] Univer sity [facility] [place] [facility] Diastolic blood 2022-02-11 20:28:00 65 mm[Hg] Unive rsity [facility] [place] [facility] Heart rate 2022-02-11 20:28:00 80 /min [facility] Body temperature 2022-02-11 20:28:00 36.56 Lynda [facility] 2022-02-11 20:28:00 18 /min [facility] Oxygen saturation in 2022-02-11 20:28:00 91 /min [facility] blood by [facility] Pulse oximetry Branch Body height 2022-02-11 06:15:00 175.3 cm [facility] Body weight 2022-02-11 06:15:00 77.973 kg [facility] BMI 2022-02-11 06:15:00 25.39 kg/m2 Universi ty [...] 93 /min [facility] of Arterial blood by [facility] anabell Pulse oximetry Branch Body temperature 2022-01-23 [...] 96 /min University of Arterial blood by [facility] Pulse oximetry Branch Systolic blood 2022-01-06 12:00:00 [...] pressure [place] [facility] Heart rate 2021-12-18 02:00:00 70 /min Universi ty of [place] [facility] Oxygen saturation in 2021-12-18 02:00:00 98 /min University of Arterial blood by [facility] anabell Pulse oximetry Branch Respiratory rate 2021-12-18 01:00:00 15 /min Univ ersity of [place] [facility] Body temperature 2021-12-17 22:57:00 36.56 Lynda [facility] ersity [facility] [place] [facility] Body weight 2021-12-17 22:57:00 84.823 kg Universi ty [facility] [place] [facility] BMI 2021-12-17 22:57:00 26.08 kg/m2 [facility] ty [facility] [place] [facility] Systolic blood 2021-11-22 16:09:00 126 mm[Hg] Univer sity of pressure [place] [facility] Diastolic blood 2021-11-22 16:09:00 62 mm[Hg] Unive rsity of pressure [place] [facility] Heart rate 2021-11-22 16:09:00 49 /min [facility]i ty [facility] [place] [facility] Body temperature 2021-11-22 16:09:00 35.56 Lynda Univ ersity of [place] [facility] Respiratory rate 2021-11-22 16:09:00 17 /min Univ ersity of [place] [facility] Oxygen saturation in 2021-11-22 16:09:00 93 /min University of Arterial blood by [facility] Pulse oximetry Branch Body weight 2021-11-22 08:00:00 84.959 kg [facility]i ty [facility] [place] [facility] BMI 2021-11-22 08:00:00 26.12 kg/m2 [facility]i ty [facility] [place] [facility] Body height 2021-11-18 13:30:00 180.3 cm Universi ty [facility] [place] [facility] Systolic blood 2021-09-11 13:00:00 150 mm[Hg] Univer sity of pressure [place] [facility] Diastolic blood 2021-09-11 13:00:00 97 mm[Hg] Unive rsity of pressure [place] [facility] Heart rate 2021-09-11 13:00:00 73 /min [facility]i ty [facility] [place] [facility] Respiratory rate 2021-09-11 13:00:00 14 /min Univ ersity of [place] [facility] Oxygen saturation in 2021-09-11 13:00:00 95 /min University of Arterial blood by [facility] anabell Pulse oximetry Branch Body temperature 2021-09-11 10:14:03 36.33 Lynda Univ ersity [facility] [place] [facility] Body height 2021-09-11 10:05:00 180.3 cm [facility] [place] [facility] Body weight 2021-09-11 10:05:00 84.823 kg [facility] [place] [facility] BMI 2021-09-11 10:05:00 26.08 kg/m2 [facility]i ty [facility] [place] [facility] Systolic blood 2021-07-25 23:00:00 151 mm[Hg] Univer sity of pressure [place] [facility] Diastolic blood 2021-07-25 23:00:00 79 mm[Hg] Unive rsity of pressure [place] [facility] Heart rate 2021-07-25 23:00:00 64 /min [facility] Respiratory rate 2021-07-25 23:00:00 16 /min [facility] Oxygen saturation in 2021-07-25 23:00:00 96 /min [facility] Arter[facility] blood by [facility] Pulse oximetry Branch Body temperature 2021-07-25 21:21:00 36.94 Lynda [facility] Body weight 2021-07-25 21:21:00 85.73 kg [facility] BMI 2021-07-25 21:21:00 26.36 kg/m2 [facility] Systolic blood 2021-07-13 04:00:00 156 mm[Hg] [facility] [place] [facility] Diastolic blood 2021-07-13 04:00:00 85 mm[Hg] [facility] [place] [facility] Heart rate 2021-07-13 04:00:00 74 /min [facility] Respiratory rate 2021-07-13 04:00:00 17 /min [facility] Oxygen saturation in 2021-07-13 04:00:00 93 /min [facility] Arter[facility] blood by [facility] anabell Pulse oximetry Branch Body temperature 2021-07-13 01:30:00 36.44 Lynda [facility] Body height 2021-07-13 01:27:00 180.3 cm [facility] Body weight 2021-07-13 01:27:00 85.73 kg [facility] [place] [facility] BMI 2021-07-13 01:27:00 26.36 kg/m2 [facility] Systolic blood 2021-02-27 00:48:00 112 mm[Hg] [facility] [place] [facility] Diastolic blood 2021-02-27 00:48:00 68 [...] [facility] [place] [facility] anabell Pulse oximetry Branch Body height 2021-02-25 [...] 2021-02-17 23:00:00 22 /min [facility] [place] [facility] Oxygen saturation in 2021-02-17 23:00:00 96 /min [facility] [place] [facility] anabell Pulse oximetry Branch Body temperature 2021-02-17 19:20:00 36.28 Lynda [facility] Body weight 2021-02-17 19:20:00 93.895 kg [facility] BMI 2021-02-17 19:20:00 29.70 kg/m2 [facility] Systolic blood 2020-07-29 21:00:00 112 mm[Hg] [facility] [place] [facility] Diastolic blood 2020-07-29 21:00:00 57 mm[Hg] [facility] [place] [facility] Heart rate 2020-07-29 21:00:00 66 /min [facility] Respiratory rate 2020-07-29 21:00:00 20 /min [facility] [place] [facility] Oxygen saturation in 2020-07-29 21:00:00 100 /min [facility] blood by [facility] Pulse oximetry Branch Body temperature 2020-07-29 19:28:00 35.83 Lynda [facility] [place] [facility] Body weight 2020-07-29 19:28:00 93.895 kg [facility] BMI 2020-07-29 19:28:00 29.70 kg/m2 [facility] Systolic blood 2020-06-29 22:19:00 101 mm[Hg] [facility] [place] [facility] Diastolic blood 2020-06-29 22:19:00 60 mm[Hg] [facility] [place] [facility] Heart rate 2020-06-29 22:06:00 92 /min [facility] Body temperature 2020-06-29 22:06:00 37.06 Lynda [facility] Respiratory rate 2020-06-29 22:06:00 18 /min [facility] Oxygen saturation in 2020-06-29 22:06:00 98 /min [facility] blood by [facility] Pulse oximetry Branch Body height 2020-06-28 09:00:00 177.8 cm [facility] Body weight 2020-06-28 09:00:00 94.167 kg [facility] BMI 2020-06-28 09:00:00 29.79 kg/m2 [facility] Systolic blood 2019-09-01 15:06:00 161 mm[Hg] [facility] [place] [facility] Diastolic blood 2019-09-01 15:06:00 82 mm[Hg] [facility] [place] [facility] Heart rate 2019-09-01 15:06:00 80 /min [facility] Respiratory rate 2019-09-01 15:06:00 20 /min [facility] Body height 2019-09-01 15:06:00 172.7 cm [facility] Body weight 2019-09-01 15:06:00 94.53 kg [facility] BMI 2019-09-01 15:06:00 31.69 kg/m2 [facility] Oxygen saturation in 2019-09-01 15:06:00 98 /min [facility] blood by [facility] Pulse oximetry Branch Procedures Procedure Date / Time Performing Clinician Source Performed DIGOXIN 2022-02-11 19:15:00 Marck Hollingsworth [facility] PROCALCITONIN 2022-02-11 16:49:00 [facility] POCT GLUCOSE 2022-02-11 16:40:00 [facility] (AUTOMATED) [facility] HB ECG ROUTINE & RHYTHM 2022-02-11 15:07:19 Macarena Hernandez [facility] STRIP [facility] POCT GLUCOSE 2022-02-11 13:11:00 [facility] (AUTOMATED) [facility] MAGNESIUM 2022-02-11 10:08[facility] 2022-02-11 10:08:00 Marck Hollingsworth [facility] BASIC METABOLIC PANEL 2022-02-11 10:08:00 Russ Lexii [facility] (NA, K, CL, CO2, Medical Branch GLUCOSE, BUN, CREATININE, CA) XR CHEST 1 VW 2022-02-11 01:04:00 Jamari Floyd [facility] CT CHEST PULMONARY 2022-02-11 01:00:00 Jamari Floyd [facility] ANGIOGRAM Medical Branch TROPONIN I 2022-02-11 00:10:00 Jamari lFoyd [facility] COMP. METABOLIC PANEL 2022-02-11 00:10:00 Jamari Floyd [facility] ([id number]) Medical Branch DIGOXIN 2022-02-11 00:10:00 Marck Hollingsworth [facility] CBC WITH DIFF 2022-02-11 00:10:00 Jamari Floyd [facility] N-TERMINAL PRO-BNP 2022-02-11 00:10:00 Jamari Floyd [facility] COVID-19 (ID NOW RAPID 2022-02-11 00:10:00 Jamari Floyd [facility] TESTING) Medical Branch HB ECG ROUTINE & RHYTHM 2022-02-11 00:06:21 Jamari [facility] HOSPITAL ADMISSION 2022-02-10 05:01:00 Doctor Unassigned, No [facility] XR CHEST 1 VW 2022-01-23 10:20:06 Malik Granados [facility] TROPONIN I 2022-01-23 10:08:00 Malik Granados [facility] COMP. METABOLIC PANEL 2022-01-23 10:08:00 Malik Granados [facility] ([id number]) Medical Branch CBC WITH DIFF 2022-01-23 10:08:00 Malik Granados [facility] PROTHROMBIN TIME / INR 2022-01-23 10:08:00 [facility] 2022-01-23 10:08:00 Malik Granados [facility] COVID-19 (ID NOW RAPID 2022-01-23 10:08:00 Malik Granados [facility] TESTING) Medical Branch XR CHEST 1 VW 2022-01-06 11:07:40 Singer [facility] MAGNESIUM 2022-01-06 10:51:00 Singer [facility] TROPONIN I 2022-01-06 10:51:00 Singer [facility] COMP. METABOLIC PANEL 2022-01-06 10:51:00 Yovani Bautista [facility] ([id number]) [facility] CBC WITH DIFF 2022-01-06 10:51:00 Singer [facility] N-TERMINAL PRO-BNP 2022-01-06 10:51:00 Singer Yovani [facility] COVID-19 (ID NOW RAPID 2021-12-18 01:10:00 Carin Solis [facility] TESTING) Medical Branch CT STROKE ANGIOGRAM 2021-12-18 00:21:46 [facility] STROKE ANGIOGRAM 2021-12-18 00:21:46 Amisha Barix [facility] NECK [facility] CT HEAD WO CONTRAST 2021-12-18 00:13:32 Carin Solis [facility] Medical [place] XR CHEST 1 VW 2021-12-17 23:52:00 [facility] TROPONIN I 2021-12-17 23:38:00 [facility]isha [facility] COMP. METABOLIC PANEL 2021-12-17 23:38:00 Amisha [facility] ([id number]) Medical Branch CBC WITH DIFF 2021-12-17 23:38:00 [facility] URINALYSIS 2021-12-17 23:38:00 [facility] N-TERMINAL PRO-BNP 2021-12-17 23:38:00 Carin Solis [facility] Medical Branch POCT GLUCOSE 2021-11-22 16:08:00 [facility] Branch POCT GLUCOSE 2021-11-22 12:46:00 Brayden [facility] (AUTOMATED) Medical Branch POCT GLUCOSE 2021-11-21 21:55:00 Brayden [facility] (AUTOMATED) Medical Branch POCT GLUCOSE 2021-11-21 17:08:00 Brayden [facility] (AUTOMATED) Medical Branch POCT GLUCOSE 2021-11-21 13:07:00 Brayden [facility] (AUTOMATED) Medical Branch BASIC METABOLIC PANEL 2021-11-21 10:10:00 Jessica Owen [facility] (NA, K, CL, CO2, Medical Branch GLUCOSE, BUN, CREATININE, CA) CBC WITH DIFF 2021-11-21 10:10:00 Brayden [facility] POCT GLUCOSE 2021-11-21 04:51:00 Brayden [facility] (AUTOMATED) Medical Branch POCT GLUCOSE 2021-11-21 01:04:00 Brayden [facility] (AUTOMATED) Medical Branch POCT GLUCOSE 2021-11-20 21:12:00 Brayden [facility] (AUTOMATED) [facility] POCT GLUCOSE 2021-11-20 16:06:00 Brayden [facility] (AUTOMATED) [facility] POCT GLUCOSE 2021-11-20 12:42:00 Brayden [facility] (AUTOMATED) [facility] MAGNESIUM 2021-11-20 11:11:00 Brayden [facility] TROPONIN I 2021-11-20 11:11:00 Trip Power [facility] BASIC METABOLIC PANEL 2021-11-20 11:11:00 Jessica Owen [facility] (NA, K, CL, CO2, Medical Branch GLUCOSE, BUN, CREATININE, CA) CBC WITH DIFF 2021-11-20 11:11:00 Brayden [facility] N-TERMINAL PRO-BNP 2021-11-20 11:11:00 Trip [facility] POCT GLUCOSE 2021-11-20 01:51:00 Brayden [facility] (AUTOMATED) [facility] URIC ACID, URIC RANDOM 2021-11-19 22:09:00 Roshan Limon [facility] POCT GLUCOSE 2021-11-19 21:18:00 Brayden [facility] (AUTOMATED) [facility] POCT GLUCOSE 2021-11-19 15:59:00 Mehul [facility] (AUTOMATED) [facility] TRANSTHORACIC ECHO 2021-11-19 15:50:00 Trip PowerHMykel [facility] (TTE) COMPLETE [facility] POCT GLUCOSE 2021-11-19 13:08:00 Mehul [facility] (AUTOMATED) [facility] PHOSPHORUS 2021-11-19 09:36:00 Mehul [facility] CREATINE KINASE 2021-11-19 09:36:00 Mehul [facility] URIC ACID 2021-11-19 09:36:00 Mehul [facility] MAGNESIUM 2021-11-19 09:36:00 Mehul mateo [facility] TROPONIN I 2021-11-19 09:36:00 Mehul mateo [facility] COMP. METABOLIC PANEL 2021-11-19 09:36:00 Garett Armas [facility] ([id number]) Medical [place] CBC WITH DIFF 2021-11-19 09:36:00 Garett Armas [facility] N-TERMINAL PRO-BNP 2021-11-19 09:36:00 Garett Armas [facility] LACTIC ACID WHOLE BLOOD 2021-11-18 23:39:00 Morgan Lazar [facility] LACTATE DEHYDROGENASE 2021-11-18 23:30:00 Garett Armas [facility] TROPONIN I 2021-11-18 23:30:00 Mehul mateo [facility] URINALYSIS 2021-11-18 18:03:00 Mehul mateo [facility] URINE CULTURE 2021-11-18 18:03:00 Mehul [facility] PROTEIN CREAT RATIO 2021-11-18 18:03:00 Garett Armas [facility] URINE RANDOM [facility] UREA NITROGEN, URINE 2021-11-18 18:03:00 Mehul mateo [facility] RANDOM [facility] SODIUM, URINE RANDOM 2021-11-18 18:03:00 Garett Armas [facility] TROPONIN I 2021-11-18 17:17:00 Garett Armas [facility] CREATINE KINASE 2021-11-18 14:38:00 Mehul mateo [facility] C-REACTIVE PROTEIN 2021-11-18 14:38:00 Mehul mateo [facility] TROPONIN I 2021-11-18 14:38:00 Mehul mateo [facility] PROTHROMBIN TIME / INR 2021-11-18 14:38:00 Mehul mateo [facility] D-DIMER 2021-11-18 14:38:00 Mehul [facility] VITAMIN B12, LEVEL 2021-11-18 14:37:00 Mehul mateo [facility] VITAMIN D, 25-OH 2021-11-18 14:37:[address] [facility] PROCALCITONIN 2021-11-18 14:37:00 Mehul [facility] AC VBG + LACTIC ACID 2021-11-18 14:36:00 Mehul mateo [facility] XR CHEST 1 VW 2021-11-18 10:46:11 Singer [facility] COVID-19 (ID NOW RAPID 2021-11-18 10:39:00 Yovani Bautista [facility] TESTING) Medical Branch PHOSPHORUS 2021-11-18 10:30:00 Mehul [facility] URIC ACID 2021-11-18 10:30:00 Mehul [facility] LIPASE 2021-11-18 10:30:00 Singer [facility] MAGNESIUM 2021-11-18 10:30:00 Singer [facility] TROPONIN I 2021-11-18 10:30:00 Singer [facility] THYROID STIMULATING 2021-11-18 10:30:00 Garett Armas [facility] HORMONE [facility] COMP. METABOLIC PANEL 2021-11-18 10:30:00 Yovani Bautista [facility] ([id number]) Medical Branch LIPID PANEL 2021-11-18 10:30:00 Mehul mateo [facility] ([id number])(TOTAL Medical Branch CHOLESTEROL, TRIGLYCERIDES, HDL) IRON PANEL 2021-11-18 10:30:00 Mehul [facility] DIGOXIN 2021-11-18 10:30:00 Mehul [facility] SEDIMENTATION RATE 2021-11-18 10:30:00 Mehul mateo [facility] CBC WITH DIFF 2021-11-18 10:30:00 Singer [facility] GLYCOSYLATED HEMOGLOBIN 2021-11-18 10:30:00 Garett Armas [facility] (A1C) [facility] N-TERMINAL PRO-BNP 2021-11-18 10:30:00 Singer [facility] LACTIC ACID WHOLE BLOOD 2021-11-18 10:30:00 Singer [facility] HB ECG ROUTINE & RHYTHM 2021-11-18 10:23:37 Singer [facility] EKG-12 LEAD 2021-09-11 12:13:52 Malik Granados [facility] CT ABDOMEN PELVIS W 2021-09-11 12:02:00 Malik Granados [facility] CONTRAST [facility] LIPASE 2021-09-11 10:11:00 Malik Granados [facility] TROPONIN I 2021-09-11 10:11:00 Malik Granados [facility] COMP. METABOLIC PANEL 2021-09-11 10:11:00 Malik Granados [facility] ([id number]) [facility] DIGOXIN 2021-09-11 10:11:00 Malik Granados [facility] CBC WITH DIFF 2021-09-11 10:11:00 Malik Granados [facility] URINALYSIS 2021-09-11 10:11:00 Malik Granados [facility] POCT GLUCOSE 2021-09-11 10:02:00 Malik Granados [facility] (AUTOMATED) [facility] ASSIGNMENT OF BENEFITS 2021-07-25 22:26:25 Doctor Unassigned, No [facility] Name [facility] XR CHEST 1 VW 2021-07-25 22:13:52 Monico Mariee [facility] URINALYSIS 2021-07-25 21:51:00 Monico Mariee [facility] LIPASE 2021-07-25 21:42:00 Monico Mariee [facility] MAGNESIUM 2021-07-25 21:42:00 Monico Mariee [facility] TROPONIN I 2021-07-25 21:42:00 Monico Mariee [facility] COMP. METABOLIC PANEL 2021-07-25 21:42:00 Monico Mariee [facility] ([id number]) Medical Branch DIGOXIN 2021-07-25 21:42:00 Monico Mariee [facility] CBC WITH DIFF 2021-07-25 21:42:00 Monico Mariee [facility] N-TERMINAL PRO-BNP 2021-07-25 21:42:00 Monico Mariee [facility] COVID-19 (ID NOW RAPID 2021-07-25 21:42:00 Monico Mariee [facility] TESTING) Medical Branch CONSENT/REFUSAL FOR 2021-07-25 21:34:33 [facility] Branch POCT GLUCOSE 2021-07-25 21:24:00 Monico Mariee [facility] (AUTOMATED) [facility] EKG-12 LEAD 2021-07-13 04:31:38 Malik Granados [facility] CT ABDOMEN PELVIS W 2021-07-13 03:48:17 Malik Granados [facility] CONTRAST Medical Branch LIPASE 2021-07-13 01:45:00 Malik Granados [facility] TROPONIN I 2021-07-13 01:45:00 Malik Granados [facility] COMP. METABOLIC PANEL 2021-07-13 01:45:00 Malik Granados [facility] ([id number]) Medical Branch CBC WITH DIFF 2021-07-13 01:45:00 Malik Granados [facility] COVID-19 (ID NOW RAPID 2021-07-13 01:45:00 Malik Granados [facility] TESTING) Medical Branch NOTICE OF PRIVACY 2021-07-13 01:37:21 Doctor Unassigned, No [facility] PRACTICES Name Medical Branch CONSENT/REFUSAL FOR 2021-07-13 01:36:54 [facility] Name Medical Branch POCT GLUCOSE 2021-02-26 21:34:00 Cady [facility] (AUTOMATED) [facility] TRANSTHORACIC ECHO 2021-02-26 20:15:00 Cady [facility] (TTE) COMPLETE [facility] CT ABDOMEN PELVIS WO 2021-02-26 17:46:59 Lars Ann [facility] CONTRAST [facility] TROPONIN I 2021-02-26 17:20:00 [facility] URINALYSIS 2021-02-26 17:[facility]:00 [facility] 2021-02-26 16:15:00 Cady [facility] (AUTOMATED) [facility] POCT GLUCOSE 2021-02-26 12:49:00 Cady [facility] (AUTOMATED) [facility] XR LUMBAR SPINE 2 VW 2021-02-26 12:12:46 [facility] 2021-02-26 08:36:00 Cady [facility] TROPONIN I 2021-02-26 08:36:00 [facility] 2021-02-26 08:36:00 [facility] CBC WITH DIFF 2021-02-26 08:36:00 Cady [facility] GLYCOSYLATED HEMOGLOBIN 2021-02-26 08:36[facility] N-TERMINAL PRO-BNP 2021-02-26 08:36:00 [facility] PANEL 2021-02-26 08:20[facility]00 [facility] ([facility], [facility], CL, CO2, Medical [place] GLUCOSE, BUN, CREATININE, CA) POCT GLUCOSE 2021-02-26 08:03:00 [facility] BASIC METABOLIC PANEL 2021-02-26 04:55:00 [facility] ([facility], K, CL, CO2, Medical Branch GLUCOSE, BUN, CREATININE, CA) POCT GLUCOSE 2021-02-26 00:42:00 Morgan Lazar [facility] (AUTOMATED) [facility] XR CHEST 1 VW 2021-02-25 19:25:17 Monico Mariee [facility] MAGNESIUM 2021-02-25 19:08:00 Monico Mariee [facility] TROPONIN I 2021-02-25 19:08:00 Monico Mariee [facility] COMP. METABOLIC PANEL 2021-02-25 19:08:00 Monico Mariee [facility] ([id number]) Medical Branch DIGOXIN 2021-02-25 19:08:00 Monico Mariee [facility] CBC WITH DIFF 2021-02-25 19:08:00 Monico Mariee [facility] PROTHROMBIN TIME / INR 2021-02-25 19:08:00 Monico Mariee [facility] ACTIVATED PARTIAL 2021-02-25 19:08:00 Monico Mariee [facility] THRMPLAS BITA [facility] N-TERMINAL PRO-BNP 2021-02-25 19:08:00 Monico Mariee [facility] COVID-19 (ID NOW RAPID 2021-02-25 19:08:00 Monico Mariee [facility] TESTING) Medical [place] HB ECG ROUTINE & RHYTHM 2021-02-25 18:59:54 Monico Mariee [facility] XR CERVICAL SPINE 3 VW 2021-02-17 21:43:52 Fahad Griggs [facility] XR HIPS 3 VW RIGHT 2021-02-17 20:54:28 Fahad Griggs [facility] XR KNEE <3 VW RIGHT 2021-02-17 20:54:28 Fahad Griggs [facility] XR RIBS 3 VW RIGHT 2021-02-17 20:54:28 Fahad Griggs [facility] XR CHEST 1 VW 2021-02-17 19:35:15 Lyle Ying [facility] CT CERVICAL SPINE WO 2020-07-29 19:55:45 Fahad Griggs [facility] CONTRAST [facility] CT HEAD WO CONTRAST 2020-07-29 19:55:45 Fahad Griggs [facility] CONSENT/REFUSAL FOR 2020-07-29 19:15:11 Doctor Unassigned, No Un [facility] DIAGNOSIS AND TREATMENT Name Medical Branch POCT GLUCOSE 2020-06-29 22:13:00 Marlena Martin [facility] (AUTOMATED) Medical Branch POCT GLUCOSE 2020-06-29 17:32:00 Marlena Martin [facility] (AUTOMATED) Medical Branch POCT GLUCOSE 2020-06-29 10:56:00 Marlena Martin [facility] (AUTOMATED) Medical Branch PHOSPHORUS 2020-06-29 10:54:00 Mehul [facility] URIC ACID 2020-06-29 10:54:00 Mehul [facility] MAGNESIUM 2020-06-29 10:54:00 Mehul [facility] TROPONIN I 2020-06-29 10:54:00 Suad [facility] COMP. METABOLIC PANEL 2020-06-29 10:54:00 Mehul mateo [facility] ([id number]) [facility] CBC WITH DIFF 2020-06-29 10:54:00 Suad [facility] N-TERMINAL PRO-BNP 2020-06-29 10:54:00 Garett Armas [facility] POCT GLUCOSE 2020-06-29 05:06:00 Marlena Martin [facility] (AUTOMATED) [facility] LACTATE DEHYDROGENASE 2020-06-29 05:04:00 Mehul [facility] TROPONIN I 2020-06-29 05:04:00 [facility] 2020-06-29 01:58:00 Marlena Martin [facility] (AUTOMATED) Medical Branch POCT GLUCOSE 2020-06-28 22:41:00 Marlena Martin [facility] (AUTOMATED) [facility] CYTO PLEURAL FLUID 2020-06-28 19:51:00 Garett Armas [facility] HB ECG ROUTINE & RHYTHM 2020-06-28 19:48:29 Roselyn Borjas [facility] STRIP [facility] TROPONIN I 2020-06-28 19:45:00 Roselyn Borjas [facility] IR THORACENTESIS WITH 2020-06-28 19:44:48 Garett Armas [facility] IMAGING [facility] XR CHEST 1 VW 2020-06-28 19:44:32 Delfin Guadalupe [facility] AMYLASE BODY FLUID 2020-06-28 19:20:00 Garett Armas [facility] GLUCOSE BODY FLUID 2020-06-28 19:20:00 Mehul [facility] PH, BODY FLUID 2020-06-28 19:20:00 Garett Armas [facility] T.PROTEIN BODY FLUID 2020-06-28 19:20:00 Garett Armas [facility] LDH TOTAL BODY FLUID 2020-06-28 19:20:00 Mehul mateo [facility] BODY FLUID DIRECT COUNT 2020-06-28 19:20:00 Garett Armas [facility] BODY FLUID 2020-06-28 19:20:00 Mehul mateo [facility] CULTURE(AEROBIC/ANAEROB Medical Branch IC) POCT GLUCOSE 2020-06-28 18:06:00 Marlena Martin [facility] (AUTOMATED) [facility] POCT GLUCOSE 2020-06-28 14:07:00 Marlena Martin [facility] (AUTOMATED) [facility] PNEUMOCOCCAL ANTIGEN 2020-06-28 12:04:00 Garett Armas [facility] URINE CULTURE 2020-06-28 12:04:00 Mehul mateo [facility] UREA NITROGEN, URINE 2020-06-28 12:04:00 Mehul mateo [facility] RANDOM [facility] SODIUM, URINE RANDOM 2020-06-28 12:04:00 Garett Armas [facility] ADC / LCC - DRUG SCREEN 2020-06-28 12:04:00 Garett Armas [facility] TRIAGE [facility] PROTEIN CREAT RATIO 2020-06-28 12:04[facility]00 [facility] PHOSPHORUS 2020-06-28 11:41:00 Mehul mateo [facility] LACTATE DEHYDROGENASE 2020-06-28 11:41:00 Mehul mateo [facility] URIC ACID 2020-06-28 11:41:00 Mehul [facility] MAGNESIUM 2020-06-28 11:41:00 Mehul [facility] VITAMIN B12, LEVEL 2020-06-28 11:41:00 Mehul mateo [facility] FOLATE 2020-06-28 11:41:00 Mehul [facility] TROPONIN I 2020-06-28 11:41:00 Mehul [facility] COMP. METABOLIC PANEL 2020-06-28 11:41:00 [id number] IRON PANEL 2020-06-28 11:41:00 Mehul [facility] SEDIMENTATION RATE 2020-06-28 11:41:00 Mehul mateo [facility] CBC WITH DIFF 2020-06-28 11:41:00 Mehul [facility] PROTHROMBIN TIME / INR 2020-06-28 11:41:00 Garett Armas [facility] N-TERMINAL PRO-BNP 2020-06-28 11:41:00 Mehul mateo [facility] VITAMIN D, 25-OH 2020-06-28 11:41:[address] [facility] PROCALCITONIN 2020-06-28 11:41:00 Mehul [facility] BLOOD CULTURE SCREEN 2020-06-28 03:22:00 Marlena Martin [facility] BLOOD CULTURE SCREEN 2020-06-28 03:00:00 Marlena Martin [facility] CT CHEST PULMONARY 2020-06-28 01:21:00 Marlena Martin [facility] ANGIOGRAM Medical Branch XR CHEST 1 VW 2020-06-28 00:31:51 Singer [facility] PHOSPHORUS 2020-06-28 00:14:00 Mehul [facility] URIC ACID 2020-06-28 00:14:00 Mehul [facility] LIPASE 2020-06-28 00:14:00 Singer [facility] MAGNESIUM 2020-06-28 00:14:00 Mehul [facility] FERRITIN SERUM 2020-06-28 00:14:00 Mehul [facility] TROPONIN I 2020-06-28 00:14:00 Singer [facility] THYROID STIMULATING 2020-06-28 00:14:00 Mehul mateo [facility] HORMONE [facility] COMP. METABOLIC PANEL 2020-06-28 00:14:00 Yovani Bautista [facility] ([id number]) Medical Branch LIPID PANEL 2020-06-28 00:14:00 Mehul mateo [facility] ([id number])(TOTAL Medical Branch CHOLESTEROL, TRIGLYCERIDES, HDL) CBC WITH DIFF 2020-06-28 00:14:00 [facility] GLYCOSYLATED HEMOGLOBIN 2020-06-28 00:14:00 Mehul mateo [facility] (A1C) Medical [place] PROTHROMBIN TIME / INR 2020-06-28 00:14:00 Yovani Bautista [facility] ACTIVATED PARTIAL 2020-06-28 00:14:00 Singer [facility] THRMPLAS BITA [facility] N-TERMINAL PRO-BNP 2020-06-28 00:14:00 Singer Yovnai [facility] COVID-19 (ID NOW RAPID 2020-06-28 00:14:00 Yovani Bautista [facility] TESTING) [facility] HB ECG ROUTINE & RHYTHM 2020-06-28 00:03:42 Yovani Bautista [facility] CONSENT/REFUSAL FOR 2020-06-27 23:25:14 Doctor Unassigned, [facility] Name Medical [place] PHYSICIAN ORDERS 2019-09-01 05:01:00 Doctor Unassigned, No [facility] Name [facility] Encounters Start End Encounter Admission Attending Care Care Encounter Source Date/Time Date/Time Type Type Clinicians Facility Department ID 2022-06-25 [facility] [id number] Common 11:36:01 [id number] 2022-05-27 Out[facility] [id number] Common 13:11:03 [id number] 2022-05-27 2022-05-27 NON-BILLAB [facility] [id number] Common 00:00:00 00:00:00 LE VISIT [facility] 2022-02-12 2022-02-12 Transition BILLIE Vale 1.2.840.114 [id number] Univers 00:00:00 00:00:00 of Care Sonjacade CASTILLOY 350.1.13.10 it [facility] [place] [phone] [facility] [address] Branch 2022-02-10 2022-02-11 Outpatient X [facility] [id number] Univers 18:24:00 17:04:00 CHAITANYA crawfordy [facility] 2022-02-10 2022-02-11 Emergency Jamari Floyd 1.2.84 0.114 [id number] Univers 18:24:00 17:04:00 Luis FernandoChaitanya childs 350.1.13.10 [facility] 4.2.7.2.686 [place] [id number] [facility] 100 Branch 2022-01-23 2022-01-23 Emergency X [facility] ERT [id number] Univers 05:05:00 06:51:00 MALIK doe [facility] 2022-01-23 2022-01-23 Emergency [facility] 1.2.320.001 [id number] Univers 05:05:00 06:51:00 Malik Burns ANDREW [id number] ity of [place] 4.2.7.2.686 [facility] [id number] [place] [address] [place] 2022-01-06 2022-01-06 Emergency [facility] 1.2.729.320 [id number] Univers 05:51:00 07:55:00 Yovani ANDREW 350.1.13.10 i ty of [place] 4.2.7.2.686 [facility] [id number] [address] 2022-01-06 2022-01-06 Emergency [facility] ERT [id number] Univers 05:51:00 07:55:00 YOVANI [facility] 2021-12-17 2021-12-17 Emergency [facility] [id number] Univers 17:58:00 21:25:00 [facility] 2021-12-17 2021-12-17 Emergency [facility] 1.2.840.114 [id number] Univers 17:58:00 21:25:00 Carin MORALES 350.1.13.10 i ty of [place] 4.2.7.2.686 [facility] [id number] [place] [address] [place] 2021-11-26 2021-11-26 Transition BILLIE Elizabeth 1.2.840.114 [id number] Univers 00:00:00 00:00:00 of Care Beba BONE 350.1.13.10 i ty of [place] 4.2.7.2.686 [facility] [id number] [facility] [address] 2021-11-18 2021-11-22 Inpatient X BRAYDEN [facility] [place] [id number] Univers 05:21:00 12:20:00 JESSICA [facility] 2021-11-18 2021-11-22 Hospital Yovani Bautista [facility] 1.2.840.1 [id number] Univers 05:21:00 12:20:00 Encounter Garett Armas 350.1.13.10 ity of [place] 4.2.7.2.686 [facility] [id number] [address] 2021-09-11 2021-09-11 Emergency X [facility] ERT [id number] Univers 05:09:00 08:26:00 MALIK ity [facility] 2021-09-11 2021-09-11 [facility] 1.2.978.436 [id number] Univers 05:09:00 08:26:00 Malik MORALES 350.1.13.10 ity of [facility] [place] [id number] [address] 2021-07-25 2021-07-25 [facility] ERT [id number] Univers 15:23:00 17:37:00 MONICO ity of [facility] 2021-07-25 2021-07-25 [facility] 1.2.100.089 [id number] Univers 15:23:00 17:37:00 Monico MORALES 350.1.13.10 i ty of [place] [id number] [address] 2021-07-12 2021-07-12 [facility] ERT [id number] Univers 19:24:00 22:58:00 MALIK doe [facility] 2021-07-12 2021-07-12 [facility] 1.2.284.792 [id number] Univers 19:24:00 22:58:00 Malik MORALSE 350.1.13.10 ity of [facility] [place] [id number] [address] 2021-02-27 2021-02-27 Billie Burgos 1.2.840.114 [id number] Univers 00:00:00 00:00:00 of Aundrea Bone 350.1.13.10 it y of [place] [id number] [facility] [address] 2021-02-25 2021-02-26 Emergency MarieeBrien rosarion R [facility] 1.2.840. 114 [id number] Univers 13:55:00 20:18:00 Morgan Lazar 350.1.13.10 ity of [place] 4.2.7.2.686 [facility] [id number] [facility] 081 Branch 2021-02-25 2021-02-25 Emergency X MARIEE, [facility] ERT [id number] Univers 13:55:00 13:55:00 MONICO ity of [facility] 2021-02-17 2021-02-17 Emergency Griggs, [facility] 1.2.840.114 [id number] Univers 14:26:00 18:33:00 Fahad Marietta 350.1.13.10 i ty of [place] 4.2.7.2.686 [facility] [id number] [facility] 084 Branch 2021-02-17 2021-02-17 Emergency X [facility] ERT [id number] Univers 14:26:00 14:26:00 ity of [facility] 2020-07-29 2020-07-29 Emergency [facility], [facility] 1.2.840.114 [id number] Univers 13:39:00 16:33:00 Fahad Marietta 350.1.13.10 i ty of [place] 4.2.7.2.686 [facility] [id number] [facility] 0[address] Branch 2020-07-29 2020-07-29 Emergency X GRIGGS, [facility] ERT [id number] Univers 13:39:00 13:39:00 FAHAD crawfordy of [facility] 2020-07-04 2020-07-04 Transition Billie Latif 1.2.840.114 [id number] Univers 00:00:00 00:00:00 of Aundrea Bone 350.1.13.10 it y of [place] 4.2.7.2.686 [facility] [id number] [facility] [address] 2020-06-27 2020-06-29 Marlena Reyes [facility] 1.2.840.11 [id number] Univers 17:58:00 19:18:00 Encounter Garett Armas Andrew 350.1.13.10 ity of [place] 4.2.7.2.686 [facility] [id number] [place] [address] [place] 2020-06-27 2020-06-29 Inpatient X MEHUL [facility] [place] [id number] Univers 17:58:00 19:18:00 GARETT itamy [facility] 2020-06-27 2020-06-27 Orders Doctor KIAH 1.2.840.114 [id number] Univers 00:00:00 00:00:00 Only Unassigned, YEHUDA 350.1.13.10 ity of [place] [facility] 4.2.7.2.686 [place] [id number] [address] 2019-09-01 2019-09-01 Office [facility] 1.2.840.114 [id number] Univers 09:55:41 10:13:47 Visit Donna Morales 350.1.13.10 ity of [place] 4.2.7.2.686 [facility] [id number] Mn dical [address] 2019-09-01 2019-09-01 Outpatient R JALYN [facility] [id number] Univers 10:00:00 10:00:00 DONNA doe [facility] 2019-09-01 2019-09-01 Orders Doctor IKAH 1.2.840.114 [id number] Univers 00:00:00 00:00:00 Only Unassigned, YEHUDA 350.1.13.10 ity of [place] [facility] 4.2.7.2.686 [place] [id number] [address] Results Test Description Test Time Test Comments Results Result Comments Source DIGOXIN 2022-02-11 21:08:20 Test Item Value Reference Range Interpretation Comme nts DIGOXIN (test code = 7201329159) 0.9 ng/mL 0.8-1.6 LUZ (test code = LUZ) Arrythmias: ?1.5 - 2.0 ng/mLToxic Range: ? Greater than or equal to 2.4 ng/mL Lab Interpretation (test code = 28368-4) Normal [facility] 20:53:15 Test Item Value Reference Range Interpretation Comments DIGOXIN (test code = 0.9 ng/mL 0.8-1.6 7804731740) LUZ (test code = LUZ) Arrythmias: ?1.5 - 2.0 ng/mLToxic Range: ? Greater than or equal to 2.4 ng/mL Lab Interpretation (test Normal code = 01282-4) [facility]2022-[facility]-20 18:19:07 Test Item Value Reference Interpretation Comments Range Procalcitonin (test 0.03 ng/mL See_Comment [Automa beatrice code = 7579249920) message] The system which generated this result [...] lung abscess/empyema. For further information please refer to:[email or web address] p Lab Interpretation Normal (test code = 17601-3) [facility] ([facility]ATED)2022-02-11 16:43:47 Test Item Value Reference Range Interpretation Comments POCT GLU (test code = 5847117528) 302 mg/dL 70-110 H Lab Interpretation (test code = Abnormal 22349-1) [facility] Center[facility] [id number] 13:58:53 Test Item Value Reference Interpretation Comments Range TROPONIN I (test 0.019 ng/mL See_Comment [Automated code = 6711499947) message] The system which generated this result [...] biotin. Lab Interpretation Normal (test code = 80138-6) [facility]2022-02-11 13:18:28 Test Item Value Reference Range Interpretation Comments POCT GLU (test code = 6751285401) 123 mg/dL 70-110 H Lab Interpretation (test code = Abnormal 74362-7) [facility]2022-09-20 12:47:51 Test Item Value Reference Range Interpretation Comments MAGNESIUM (test code = 0482140249) 2.5 mg/dL 1.7-2.4 H Lab Interpretation (test code = Abnormal 98155-9) [facility]ABOLIC PANEL (NA, K, CL, CO2, GLUCOSE, BUN, CREATININE, CA)2022-02-11 12:47:51 Test Item Value Reference Range Interpretation Comments NA (test code = 136 mmol/L 135-145 8793870051) K (test code = 4.2 mmol/L 3.5-5 4176206326) CL (test code = 101 mmol/L 98-108 0512016863) CO2 TOTAL (test code = 27 mmol/L 23-31 2643193679) AGAP (test code = 2-16 5665768593) BUN (test code = 48 mg/dL 7-23 H 9004928453) GLUCOSE (test code = 119 mg/dL 70-110 H 2010416442) CREATININE (test code = 1.58 mg/dL 0.6-1.25 H 9067411425) CALCIUM (test code = 8.8 mg/dL 8.6-10.6 3391107147) eGFR (test code = mL/min/1.73m2 2617384999) LUZ (test code = LUZ) Association of [...] tests). Lab Interpretation Abnormal (test code = 51417-6) [facility] WITH [id number] 01:04:16 Test Item Value Reference Range Interpretation Comments WBC (test code = See_Comment H [Automated 1790-2) message] The sy stem which generated this [...] (test code = 53.3 fL 38.5-51.6 H 96029-9) RDW-CV (test code = 17.2 % 12.1-15.4 H 788-0) PLT (test code = See_Comment H [Automated 777-3) message] The sy stem which generated this result transmitted reference range : 150 - 328 10*3/ ?L. The reference r stephanie was not used to interpret this result as normal/abnormal . MPV (test code = 11.0 fL 9.8-13 45179-0) NRBC/100 WBC (test See_Comment [Automat ed code = 7945696102) message] The system which generated this result transmitted reference range : 0.0 - 10.0 /100 WBCs. The refer ence range was not u sed to interpret th is result as normal/abnormal . NRBC x10^3 (test code See_Comment [Auto mated = 7592734863) message] The s ystem which generated this result transmitted reference range : 10*3/?L. The reference range was not used to interpret this result as normal/abnormal . SEG % (test code = 50 % 33-76 63004-7) BAND % (test code = 1 % 0-1 94242-5) LYMPH % (test code = 17 % 14-54 68871-2) MONO % (test code = 8 % 0-4 H 03899-3) EOS % (test code = 23 % 0-3 H 99011-7) BASO % (test code = 1 % 0-1 15658-8) ANC (test code = 5.62 10*3/uL 1.99-6.95 753-4) Lab Interpretation Abnormal (test code = 21265-2) [facility] CenterMILES [id number] 00:47:16 Test Item Value Reference Interpretation Comments Range TROPONIN I (test 0.022 ng/mL See_Comment [Automated code = 9799965777) message] The system which generated this result [...] biotin. Lab Interpretation Normal (test code = 20816-0) [facility] Center[facility]AL [id number] 00:43:59 Test Item Value Reference Range Interpretation Comments NT-proBNP (test code 2520 pg/mL See_Comment H [Autom ated = 1779629935) message] The system which generated this result transmitted reference range : <=450. The reference range was not used to interpret this result as normal/abnormal . LUZ (test code = LUZ) Biotin has been reported to cause a negative bias, interpret results relative to patient's use of biotin. Lab Interpretation Abnormal (test code = 03554-6) [facility]. METABOLIC PANEL (81033)2022-02-11 00:36:13 Test Item Value Reference Range Interpretation Comments NA (test code = 139 mmol/L 135-145 6876351632) K (test code = 5.0 mmol/L 3.5-5 0669839769) CL (test code = 96 mmol/L 98-108 L 6064216456) CO2 TOTAL (test code = 30 mmol/L 23-31 0402694585) AGAP (test code = 2-16 6908545656) BUN (test code = 50 mg/dL 7-23 H 5634587253) GLUCOSE (test code = 147 mg/dL 70-110 H 7678184866) CREATININE (test code = 1.71 mg/dL 0.6-1.25 H 8330200684) TOTAL BILI (test code = 0.7 mg/dL 0.1-1.4 9616011127) CALCIUM (test code = 9.3 mg/dL 8.6-10.6 6982312329) T PROTEIN (test code = 7.2 g/dL 6.3-8.2 3115490828) ALBUMIN (test code = 4.4 g/dL 3.5-5 0712616725) ALK PHOS (test code = 99 U/L 34-122 4704346882) ALTv (test code = 14 U/L 5-50 1742-6) AST(SGOT) (test code = 14 U/L 13-40 5886646190) eGFR (test code = mL/min/1.73m2 2543166122) LUZ (test code = LUZ) Association of [...] tests). Lab Interpretation Abnormal (test code = 55861-6) [facility] CenterProthrombin Time / [id number] 11:05:09 Test Item Value Reference Range Interpretation [...] tions. Lab Interpretation (test Abnormal code = 27215-7) [facility] CenterTROP[facility] [id number] 10:48:07 Test Item Value Reference Interpretation Comments Range TROPONIN I (test 0.027 ng/mL See_Comment [Automated code = 0268137547) message] The system which generated this result [...] biotin. Lab Interpretation Normal (test code = 09718-8) [facility] Center[facility]MINAL [id number] 10:44:31 Test Item Value Reference Range Interpretation Comments NT-proBNP (test code 2230 pg/mL See_Comment H [Autom ated = 0877495583) message] The system which generated this result transmitted reference range : <=450. The reference range was not used to interpret this result as normal/abnormal . LUZ (test code = LUZ) Biotin has been reported to cause a negative bias, interpret results relative to patient's use of biotin. Lab Interpretation Abnormal (test code = 73056-9) [facility] Center[facility]. METABOLIC PANEL (80405)2022-01-23 10:36:26 Test Item Value Reference Range Interpretation Comments NA (test code = 140 mmol/L 135-145 6603286908) K (test code = 4.6 mmol/L 3.5-5 7706110729) CL (test code = 104 mmol/L 98-108 3937911038) CO2 TOTAL (test code = 28 mmol/L 23-31 8180768989) AGAP (test code = 2-16 0519948245) BUN (test code = 42 mg/dL 7-23 H 6269814810) GLUCOSE (test code = 138 mg/dL 70-110 H 3994150158) CREATININE (test code = 1.21 mg/dL 0.6-1.25 7057627018) TOTAL BILI (test code = 0.6 mg/dL 0.1-1.2 7339486265) CALCIUM (test code = 9.1 mg/dL 8.6-10.6 4838114540) T PROTEIN (test code = 6.4 g/dL 6.3-8.2 3536204659) ALBUMIN (test code = 3.9 g/dL 3.5-5 3367651303) ALK PHOS (test code = 101 U/L 34-122 3553726439) ALTv (test code = 14 U/L 5-50 1742-6) AST(SGOT) (test code = 18 U/L 13-40 9899789314) eGFR (test code = mL/min/1.73m2 9626376074) LUZ (test code = LUZ) Association of [...] tests). Lab Interpretation Abnormal (test code = 26556-3) [facility] WITH [id number] 10:23:05 Test Item Value Reference Range Interpretation [...] (test code = 55.8 fL 38.5-51.6 H 72163-1) RDW-CV (test code = 17.8 % 12.1-15.4 H 788-0) PLT (test code = See_Comment [Automated 777-3) message] The sy stem which generated this result transmitted reference range : 150 - 328 10*3/ ?L. The reference r stephanie was not used to interpret this result as normal/abnormal . MPV (test code = 10.8 fL 9.8-13 85342-4) NRBC/100 WBC (test See_Comment [Automat ed code = 1209958561) message] The system which generated this result transmitted reference range : 0.0 - 10.0 /100 WBCs. The refer ence range was not u sed to interpret th is result as normal/abnormal . NRBC x10^3 (test code See_Comment [Auto mated = 3972981841) message] The s ystem which generated this result transmitted reference range : 10*3/?L. The reference range was not used to interpret this result as normal/abnormal . GRAN MAT (NEUT) % 39.5 % (test code = 770-8) IMM GRAN % (test code 0.30 % = 3089093412) LYMPH % (test code = 19.4 % 736-9) MONO % (test code = 11.3 % 5905-5) EOS % (test code = 28.8 % 713-8) BASO % (test code = 0.7 % 706-2) GRAN MAT x10^3(ANC) 2.68 10*3/uL 1.99-6.95 (test code = 3960505398) IMM GRAN x10^3 (test 0-0.06 code = 2372354336) LYMPH x10^3 (test code 1.32 10*3/uL 1.09-3.23 = 731-0) MONO x10^3 (test code 0.77 10*3/uL 0.36-1.02 = 742-7) EOS x10^3 (test code = 1.96 10*3/uL 0.06-0.53 H 711-2) BASO x10^3 (test code 0.05 10*3/uL 0.01-0.09 = 704-7) Lab Interpretation Abnormal (test code = 66959-3) [facility] CenterNADIRAFORMERLY [facility]INGTONEMMANUEL [id number] 12:10:51 Test Item Value Reference Interpretation Comments Range TROPONIN I (test 0.019 ng/mL See_Comment [Automated code = 4941483406) message] The system which generated this result [...] biotin. Lab Interpretation Normal (test code = 37162-0) [facility]AL [id number] 12:07:30 Test Item Value Reference Range Interpretation Comments NT-proBNP (test code 2730 pg/mL See_Comment H [Autom ated = 5926613109) message] The system which generated this result transmitted reference range : <=450. The reference range was not used to interpret this result as normal/abnormal . LUZ (test code = LUZ) Biotin has been reported to cause a negative bias, interpret results relative to patient's use of biotin. Lab Interpretation Abnormal (test code = 44296-3) [facility] CenterMAGN[facility]UM2022-08-15 12:00:10 Test Item Value Reference Range Interpretation Comments MAGNESIUM (test code = 8990371774) 1.9 mg/dL 1.7-2.4 Lab Interpretation (test code = Normal 34716-1) [facility] Center[facility] METABOLIC PANEL (79582)2022-01-06 11:59:50 Test Item Value Reference Range Interpretation Comments NA (test code = 140 mmol/L 135-145 1583379756) K (test code = 4.9 mmol/L 3.5-5 0634268242) CL (test code = 105 mmol/L 98-108 0823219986) CO2 TOTAL (test code = 22 mmol/L 23-31 L 8538694779) AGAP (test code = 2-16 0756908701) BUN (test code = 29 mg/dL 7-23 H 7950141320) GLUCOSE (test code = 155 mg/dL 70-110 H 7264665791) CREATININE (test code = 1.20 mg/dL 0.6-1.25 3798518947) TOTAL BILI (test code = 0.9 mg/dL 0.1-1.4 8306946645) CALCIUM (test code = 9.1 mg/dL 8.6-10.6 7761074756) T PROTEIN (test code = 7.1 g/dL 6.3-8.2 9864936490) ALBUMIN (test code = 4.2 g/dL 3.5-5 1348013799) ALK PHOS (test code = 85 U/L 34-122 0154162622) ALTv (test code = 12 U/L 5-50 1742-6) AST(SGOT) (test code = 14 U/L 13-40 4750180350) eGFR (test code = mL/min/1.73m2 7164739256) LUZ (test code = LUZ) Association of [...] tests). Lab Interpretation Abnormal (test code = 78438-9) [facility] WITH [id number] 11:34:48 Test Item Value Reference Range Interpretation [...] (test code = 56.3 fL 38.5-51.6 H 05783-7) RDW-CV (test code = 17.7 % 12.1-15.4 H 788-0) PLT (test code = See_Comment [Automated 777-3) message] The sy stem which generated this result transmitted reference range : 150 - 328 10*3/ ?L. The reference r stephanie was not used to interpret this result as normal/abnormal . MPV (test code = 10.8 fL 9.8-13 97676-1) NRBC/100 WBC (test See_Comment [Automat ed code = 8670334611) message] The system which generated this result transmitted reference range : 0.0 - 10.0 /100 WBCs. The refer ence range was not u sed to interpret th is result as normal/abnormal . NRBC x10^3 (test code See_Comment [Auto mated = 3066653560) message] The s ystem which generated this result transmitted reference range : 10*3/?L. The reference range was not used to interpret this result as normal/abnormal . GRAN MAT (NEUT) % 72.3 % (test code = 770-8) IMM GRAN % (test code 1.10 % = 8173421997) LYMPH % (test code = 10.1 % 736-9) MONO % (test code = 10.9 % 5905-5) EOS % (test code = 4.8 % 713-8) BASO % (test code = 0.8 % 706-2) GRAN MAT x10^3(ANC) 7.47 10*3/uL 1.99-6.95 H (test code = [id number]) IMM GRAN x10^3 (test 0.11 10*3/uL 0-0.06 H code = [id number]) LYMPH x10^3 (test code 1.04 10*3/uL 1.09-3.23 L = 731-0) MONO x10^3 (test code 1.13 10*3/uL 0.36-1.02 H = 742-7) EOS x10^3 (test code = 0.50 10*3/uL 0.06-0.53 711-2) BASO x10^3 (test code 0.08 10*3/uL 0.01-0.09 = 704-7) Lab Interpretation Abnormal (test code = 47675-1) [facility] [id number] 00:39:30 Test Item Value Reference Interpretation Comments Range TROPONIN I (test 0.010 ng/mL See_Comment [Automated code = 2142465598) message] The system which generated this result [...] biotin. Lab Interpretation Normal (test code = 15819-3) [id number] 00:36:12 Test Item Value Reference Range Interpretation Comments NT-proBNP (test code 1390 pg/mL See_Comment H [Autom ated = 7458447890) message] The system which generated this result transmitted reference range : <=450. The reference range was not used to interpret this result as normal/abnormal . LUZ (test code = LUZ) Biotin has been reported to cause a negative bias, interpret results relative to patient's use of biotin. Lab Interpretation Abnormal (test code = 65534-9) [facility] (53545)2021-12-18 00:28:47 Test Item Value Reference Range Interpretation Comments NA (test code = 140 mmol/L 135-145 3512013505) K (test code = 4.9 mmol/L 3.5-5 7784142522) CL (test code = 101 mmol/L 98-108 8405540141) CO2 TOTAL (test code = 23 mmol/L 23-31 6628225857) AGAP (test code = 2-16 2773735720) BUN (test code = 27 mg/dL 7-23 H 6303348994) GLUCOSE (test code = 114 mg/dL 70-110 H 5179331384) CREATININE (test code = 1.20 mg/dL 0.6-1.25 1597959337) TOTAL BILI (test code = 0.6 mg/dL 0.1-1.2 6854090314) CALCIUM (test code = 9.3 mg/dL 8.6-10.6 6994694944) T PROTEIN (test code = 7.2 g/dL 6.3-8.2 5461945136) ALBUMIN (test code = 4.3 g/dL 3.5-5 9637076510) ALK PHOS (test code = 85 U/L 34-122 7278470547) ALTv (test code = 14 U/L 5-50 1742-6) AST(SGOT) (test code = 15 U/L 13-40 9761526550) eGFR (test code = mL/min/1.73m2 7433411859) LUZ (test code = LUZ) Association of [...] tests). Lab Interpretation Abnormal (test code = 29288-9) [facility] WITH [id number] 00:21:10 Test Item Value Reference Range Interpretation Comments WBC (test code = See_Comment [Automated 8253-2) message] The sy stem which generated this result transmitted reference range : 4.20 - 10.70 10*3/?L. The reference range was not used to interpret this result as normal/abnormal . RBC (test code = See_Comment L [Automated 691-8) message] The sy stem which generated this [...] (test code = 59.7 fL 38.5-51.6 H 26302-3) RDW-CV (test code = 19.0 % 12.1-15.4 H 788-0) PLT (test code = See_Comment [Automated 777-3) message] The sy stem which generated this result transmitted reference range : 150 - 328 10*3/ ?L. The reference r stephanie was not used to interpret this result as normal/abnormal . MPV (test code = 10.5 fL 9.8-13 39833-6) NRBC/100 WBC (test See_Comment [Automat ed code = 0544443795) message] The system which generated this result transmitted reference range : 0.0 - 10.0 /100 WBCs. The refer ence range was not u sed to interpret th is result as normal/abnormal . NRBC x10^3 (test code See_Comment [Auto mated = 2635689606) message] The s ystem which generated this result transmitted reference range : 10*3/?L. The reference range was not used to interpret this result as normal/abnormal . GRAN MAT (NEUT) % 50.9 % (test code = 770-8) IMM GRAN % (test code 0.50 % = 3839441742) LYMPH % (test code = 21.8 % 736-9) MONO % (test code = 12.9 % 5905-5) EOS % (test code = 12.7 % 713-8) BASO % (test code = 1.2 % 706-2) GRAN MAT x10^3(ANC) 3.92 10*3/uL 1.99-6.95 (test code = 7231599253) IMM GRAN x10^3 (test 0.04 10*3/uL 0-0.06 code = 4515790725) LYMPH x10^3 (test code 1.68 10*3/uL 1.09-3.23 = 731-0) MONO x10^3 (test code 0.99 10*3/uL 0.36-1.02 = 742-7) EOS x10^3 (test code = 0.98 10*3/uL 0.06-0.53 H 711-2) BASO x10^3 (test code 0.09 10*3/uL 0.01-0.09 = 704-7) Lab Interpretation Abnormal (test code = 13296-8) [facility] GLUCOSE (AUTOMATED)2021-11-22 16:20:26 Test Item Value Reference Range Interpretation Comments POCT GLU (test code = 9185806363) 211 mg/dL 70-110 H Lab Interpretation (test code = Abnormal 00521-8) [facility] GLUCOSE (AUTOMATED)2021-11-22 12:57:11 Test Item Value Reference Range Interpretation Comments POCT GLU (test code = 1465235821) 237 mg/dL 70-110 H Lab Interpretation (test code = Abnormal 46457-4) [facility] GLUCOSE (AUTOMATED)2021-11-21 22:10:02 Test Item Value Reference Range Interpretation Comments POCT GLU (test code = 7774257498) 229 mg/dL 70-110 H Lab Interpretation (test code = Abnormal 72047-9) [facility] GLUCOSE (AUTOMATED)2021-11-21 17:12:43 Test Item Value Reference Range Interpretation Comments POCT GLU (test code = 7606673881) 208 mg/dL 70-110 H Lab Interpretation (test code = Abnormal 59018-3) [facility] WITH [id number] 14:22:33 Test Item Value Reference Range Interpretation Comments WBC (test code = See_Comment L [Automated 3490-2) message] The sy stem which generated this result transmitted reference range : 4.20 - 10.70 10*3/?L. The reference range was not used to interpret this result as normal/abnormal . RBC (test code = See_Comment L [Automated 619-8) message] The sy stem which generated this [...] RDW-SD (test code = 51.1 fL 38.5-51.6 90073-9) RDW-CV (test code = 17.2 % 12.1-15.4 H 788-0) PLT (test code = See_Comment [Automated 777-3) message] The sy stem which generated this result transmitted reference range : 150 - 328 10*3/ ?L. The reference r stephanie was not used to interpret this result as normal/abnormal . MPV (test code = 10.7 fL 9.8-13.0 98247-6) NRBC/100 WBC (test See_Comment [Automat ed code = 1264241004) message] The system which generated this result transmitted reference range : 0.0 - 10.0 /100 WBCs. The refer ence range was not u sed to interpret th is result as normal/abnormal . NRBC x10^3 (test code <0.01 See_Comment [Auto mated = 8515405696) message] The s ystem which generated this result transmitted reference range : 10*3/?L. The reference range was not used to interpret this result as normal/abnormal . GRAN MAT (NEUT) % 60.2 % (test code = 770-8) IMM GRAN % (test code 0.80 % = 7626444044) LYMPH % (test code = 24.4 % 736-9) MONO % (test code = 14.3 % 5905-5) EOS % (test code = 0.3 % 713-8) BASO % (test code = 0.0 % 706-2) GRAN MAT x10^3(ANC) 2.15 10*3/uL 1.99-6.95 (test code = 9334877956) IMM GRAN x10^3 (test 0.03 10*3/uL 0.00-0.06 code = 2815645002) LYMPH x10^3 (test code 0.87 10*3/uL 1.09-3.23 [...] 2+ See_Comment A [Automat ed code = 38141-4) message] The system which generated this result transmitted reference range : (none). The reference range was not used to interpret this result as normal/abnormal . BANDS (test code = Increased A 3546877231) LG GRAN LYMPHS (test Rare Rare code = 0164507295) GIANT PLATELETS (test Present See_Comment A [Auto mated code = 5908-9) message] The system which generated this result transmitted reference range : (none). The reference range was not used to interpret this result as normal/abnormal . Lab Interpretation Abnormal (test code = 16150-3) [facility]21-[facility] 13:39:25 Test Item Value Reference Range Interpretation Comments POCT GLU (test code = 8616415655) 212 mg/dL 70-110 H Lab Interpretation (test code = Abnormal 72546-9) [facility] (NA, K, CL, CO2, GLUCOSE, BUN, CREATININE, CA)2021-11-21 11:11:53 Test Item Value Reference Range Interpretation Comments NA (test code = 136 mmol/L 135-145 6751127788) K (test code = 4.8 mmol/L 3.5-5.0 8794201021) CL (test code = 102 mmol/L 98-108 0797741659) CO2 TOTAL (test code = 26 mmol/L 23-31 0403960819) AGAP (test code = 2-16 6092535825) BUN (test code = 36 mg/dL 7-23 H 2465674679) GLUCOSE (test code = 204 mg/dL 70-110 H 5396575913) CREATININE (test code = 0.85 mg/dL 0.60-1.25 6911838726) CALCIUM (test code = 8.6 mg/dL 8.6-10.6 8332506053) eGFR (test code = mL/min/1.73m2 8826280063) LUZ (test code = LUZ) Association of [...] tests). Lab Interpretation Abnormal (test code = 60062-4) [facility]2021-11-21 06:56:21 Test Item Value Reference Range Interpretation Comments Height (test code = in 4856302455) Weight (test code = lbs 5524179222) Systolic BP (test code = mmHg 6547982123) Diastolic BP (test code = mmHg 3294318070) Heart Rate (test code = bpm 6915634187) BSA (test code = 2.08 m2 1957979382) Ao root annulus (test code 3.3 cm = 9199417749) Ao root diam (test code = 3.30 cm 9819648709) Aortic root (test code = 3.3 cm 5602615139) LVOT diameter (test code = 1.86 cm 5783078839) LVIDD (test code = 3.30 cm 2847538916) IVS (test code = 1.51 cm 8605514089) Interventricular Septum 1.51 cm Diastolic Thickness by 2D (test code = 2127205) LVPWD (test code = 1.53 cm 6718150171) PW (test code = 1.53 cm 0.6-1.5 3918548674) EF(Teich) (test code = 58.10 % 1186869366) LVIDS (test code = 2.33 cm 9801494287) FS (test code = 30 % 5467070030) EF - 2D (test code = 58.10 % 66876634) LA size (test code = 5.4 cm 5840259676) TR Peak Norberto (test code = 300.5 cm/s 2214274418) Triscuspid Valve mmHg Regurgitation Peak Gradient (test code = 7398856196) Pulmonic Regurgitant End 52.1 cm/s Max Velocity (test code = 0322602367) LAV(MOD-sp4) (test code = 144.00 mL 8656991258) MV stenosis pressure 1/2 75.1 ms time (test code = 6430098265) MV Peak E Norberto (test code = 160.8 cm/s 0510179988) E wave decelartion time 0.25 s (test code = 2037735004) MV Peak A Norberto (test code = 65.7 cm/s 7565873101) E/A ratio (test code = ratio 9092323209) MR max PG (test code = 67.10 mm[Hg] 7515921272) MR max norberto (test code = 409.60 cm/s 5802086040) Mr max norbreto (test code = 409.6 m/s 7834733475) MV Prop V (test code = 80.30 cm/s 3616318611) MV E/e' septal (test code 11.8 cm/s = 0663697706) Tapse (test code = 0.67 cm 0310697977) LVOT stroke volume (test 56.70 cm3 code = 7158622833) LVOT peak norberto (test code = 98.5 cm/s 9147163210) LVOT mn grad (test code = mmHg 3393260712) AV LVOT peak gradient mmHg (test code = 7197429683) LVOT peak VTI (test code = 20.8 cm 7098900428) LV V1 mean (test code = 70.30 cm/s 4168954138) Aortic valve mean velocity 107.1 cm/s (test code = 3528619572) Ao peak norberto (test code = 148.3 cm/s 3019896538) Ao VTI (test code = 27.8 cm 4511515557) AV area by cont VTI (test 2.0 cm2 code = 5728577181) AV area peak norberto (test 1.8 cm2 code = 8099828753) Ao max PG (test code = 8.80 mm[Hg] 1254976080) AV peak gradient (test mmHg code = 8451333364) AV valve area (test code = 2.04 cm2 0501459693) AV mean gradient (test mmHg code = 6785700400) Radiology Study observation (narrative) (test code = 20339-5) LUZ (test code = LUZ) ?Left?Ventricle: Left ventricle size is normal. Moderately increased wall thickness. Normal systolic function with a visually estimated EF of 55 - 60%. ?Pulmonic?Valve: Pulmonic valve is normal in structure and function. ?Mitral?Valve: Mitral valve structure is normal. Moderately thickened leaflets. Moderately calcified leaflets. ?Tricuspid?Valve: Tricuspid valve structure is normal. [facility] GLUCOSE (AUTOMATED)2021-11-21 04:55:54 Test Item Value Reference Range Interpretation Comments POCT GLU (test code = 9872144335) 284 mg/dL 70-110 H Lab Interpretation (test code = Abnormal 08268-5) [facility] GLUCOSE (AUTOMATED)2021-11-21 03:03:48 Test Item Value Reference Range Interpretation Comments POCT GLU (test code = 0978046423) 344 mg/dL 70-110 H Lab Interpretation (test code = Abnormal 27549-8) [facility] GLUCOSE (AUTOMATED)2021-11-20 21:19:00 Test Item Value Reference Range Interpretation Comments POCT GLU (test code = 2947448556) 327 mg/dL 70-110 H Lab Interpretation (test code = Abnormal 56190-8) [facility] GLUCOSE (AUTOMATED)2021-11-20 16:12:09 Test Item Value Reference Range Interpretation Comments POCT GLU (test code = 5975793864) 266 mg/dL 70-110 H Lab Interpretation (test code = Abnormal 19177-8) [facility] WITH [id number] 14:17:38 Test Item Value Reference Range Interpretation [...] (test code = 52.3 fL 38.5-51.6 H 18889-8) RDW-CV (test code = 17.5 % 12.1-15.4 H 788-0) PLT (test code = See_Comment [Automated 777-3) message] The sy stem which generated this result transmitted reference range : 150 - 328 10*3/ ?L. The reference r stephanie was not used to interpret this result as normal/abnormal . MPV (test code = 10.2 fL 9.8-13.0 11231-2) NRBC/100 WBC (test See_Comment [Automat ed code = 9290065231) message] The system which generated this result transmitted reference range : 0.0 - 10.0 /100 WBCs. The refer ence range was not u sed to interpret th is result as normal/abnormal . NRBC x10^3 (test code <0.01 See_Comment [Auto mated = 4501651376) message] The s ystem which generated this result transmitted reference range : 10*3/?L. The reference range was not used to interpret this result as normal/abnormal . GRAN MAT (NEUT) % 62.0 % (test code = 770-8) IMM GRAN % (test code 1.90 % = 9756264103) LYMPH % (test code = 22.7 % 736-9) MONO % (test code = 13.1 % 5905-5) EOS % (test code = 0.0 % 713-8) BASO % (test code = 0.3 % 706-2) GRAN MAT x10^3(ANC) 1.99 10*3/uL 1.99-6.95 (test code = 0844806264) IMM GRAN x10^3 (test 0.06 10*3/uL 0.00-0.06 code = 7937136777) LYMPH x10^3 (test code 0.73 10*3/uL 1.09-3.23 [...] 2+ See_Comment A [Automat ed code = 27154-7) message] The system which generated this result transmitted reference range : (none). The reference range was not used to interpret this result as normal/abnormal . BANDS (test code = Increased A 4494402035) LG GRAN LYMPHS (test Rare Rare code = 1240189765) TOXIC CHANGES (test Present A code = 803-7) Lab Interpretation Abnormal (test code = 31087-0) [facility] [id number] 14:00:33 Test Item Value Reference Interpretation Comments Range TROPONIN I (test 0.022 ng/mL See_Comment [Automated code = 1763274502) message] The system which generated this result [...] biotin. Lab Interpretation Normal (test code = 98212-8) [facility] [id number] 13:57:36 Test Item Value Reference Range Interpretation Comments NT-proBNP (test code 3560 pg/mL See_Comment H [Autom ated = 0235845362) message] The system which generated this result transmitted reference range : <=450. The reference range was not used to interpret this result as normal/abnormal . LUZ (test code = LUZ) Biotin has been reported to cause a negative bias, interpret results relative to patient's use of biotin. Lab Interpretation Abnormal (test code = 11669-1) [facility]2021-11-20 12:56:09 Test Item Value Reference Range Interpretation Comments POCT GLU (test code = 1617641691) 258 mg/dL 70-110 H Lab Interpretation (test code = Abnormal 85482-8) [facility] METABOLIC PANEL (NA, K, CL, CO2, GLUCOSE, BUN, CREATININE, CA)2021-11-20 11:53:23 Test Item Value Reference Range Interpretation Comments NA (test code = 137 mmol/L 135-145 1124993610) K (test code = 4.4 mmol/L 3.5-5.0 1701384417) CL (test code = 100 mmol/L 98-108 6737932921) CO2 TOTAL (test code = 27 mmol/L 23-31 0058555734) AGAP (test code = 2-16 2222068543) BUN (test code = 35 mg/dL 7-23 H 4682745175) GLUCOSE (test code = 258 mg/dL 70-110 H 7053828492) CREATININE (test code = 1.01 mg/dL 0.60-1.25 1018814926) CALCIUM (test code = 8.7 mg/dL 8.6-10.6 4120884578) eGFR (test code = mL/min/1.73m2 8539903268) LUZ (test code = LUZ) Association of [...] tests). Lab Interpretation Abnormal (test code = 63421-3) [facility]2022-[facility]-29 11:53:23 Test Item Value Reference Range Interpretation Comments MAGNESIUM (test code = 5722050505) 2.3 mg/dL 1.7-2.4 Lab Interpretation (test code = Normal 25072-2) [facility] GLUCOSE (AUTOMATED)2021-11-20 02:00:42 Test Item Value Reference Range Interpretation Comments POCT GLU (test code = 0065490672) 211 mg/dL 70-110 H Lab Interpretation (test code = Abnormal 61735-1) [facility] GLUCOSE (AUTOMATED)2021-11-19 21:24:48 Test Item Value Reference Range Interpretation Comments POCT GLU (test code = 2709086337) 108 mg/dL 70-110 Lab Interpretation (test code = Normal 85430-3) [facility] GLUCOSE (AUTOMATED)2021-11-19 17:25:06 Test Item Value Reference Range Interpretation Comments POCT GLU (test code = 9209269024) 78 mg/dL 70-110 Lab Interpretation (test code = Normal 95630-8) [facility] GLUCOSE (AUTOMATED)2021-11-19 16:10:23 Test Item Value Reference Range Interpretation Comments POCT GLU (test code = 7667185455) 115 mg/dL 70-110 H Lab Interpretation (test code = Abnormal 82317-1) [facility]-REACTIVE [id number] 15:26:09 Test Item Value Reference Range Interpretation Comments CRP (test code = 0477835064) 1.2 mg/dL <0.8 H Lab Interpretation (test code = Abnormal 55719-1) [facility] WITH [id number] 14:10:50 Test Item Value Reference Range Interpretation Comments WBC (test code = See_Comment [Automated 4090-2) message] The system which generated this result transmitted reference range : 4.20 - 10.70 10*3/?L. The reference range was not used to interpret this result as normal/abnormal . RBC (test code = See_Comment L [Automated 159-8) message] The system which generated this result [...] (test code = 52.5 fL 38.5-51.6 H 02558-1) RDW-CV (test code = 17.7 % 12.1-15.4 H 788-0) PLT (test code = See_Comment [Automated 777-3) message] The system which generated this result transmitted reference range : 150 - 328 10*3/?L. The reference range was not used to interpret this result as normal/abnormal . MPV (test code = 10.0 fL 9.8-13.0 97533-6) NRBC/100 WBC (test See_Comment [Automat ed code = 4643266508) message] The system which generated this result transmitted reference range : 0.0 - 10.0 /100 WBCs. The reference range was not used to interpret this result as normal/abnormal . NRBC x10^3 (test code <0.01 See_Comment [Auto mated = 5650939913) message] The system which generated this result transmitted reference range : 10*3/?L. The reference range was not used to interpret this result as normal/abnormal . GRAN MAT (NEUT) % 63.4 % (test code = 770-8) IMM GRAN % (test code 0.70 % = 7686758260) LYMPH % (test code = 12.6 % 736-9) MONO % (test code = 18.9 % 5905-5) EOS % (test code = 3.5 % 713-8) BASO % (test code = 0.9 % 706-2) GRAN MAT x10^3(ANC) 2.71 10*3/uL 1.99-6.95 (test code = 1566311668) IMM GRAN x10^3 (test 0.03 10*3/uL 0.00-0.06 code = 8211404846) LYMPH x10^3 (test 0.54 10*3/uL 1.09-3.23 L code = 731-0) MONO x10^3 (test code 0.81 10*3/uL 0.36-1.02 = 742-7) EOS x10^3 (test code 0.15 10*3/uL 0.06-0.53 = 711-2) BASO x10^3 (test code 0.04 10*3/uL 0.01-0.09 = 704-7) ELLIPTO/OVAL (test 2+ See_Comment A [Automat ed code = 68476-7) message] The system which generated this result transmitted reference range : (none). The reference range was not used to interpret this result as normal/abnormal . POLYCHROMASIA (test 2+ See_Comment [Automa beatrice code = 54650-7) message] The system which generated this result transmitted reference range : 2+. The referen ce range was not used to interpr et this result as normal/abnormal . BANDS (test code = MARKED INCREASED A 0884611025) Lab Interpretation Abnormal (test code = 60337-0) [facility] CenterURIC [id number] 10:45:11 Test Item Value Reference Range Interpretation Comments URIC ACID (test code = 4076693717) 11.0 mg/dL 3.6-8.0 H Lab Interpretation (test code = Abnormal 62940-6) [facility] CenterCREATINE [id number] 10:44:51 Test Item Value Reference Range Interpretation Comments CK (test code = 2027917517) 33 U/L 33-194 Lab Interpretation (test code = Normal 92236-1) [facility]TR[facility] [id number] 10:17:49 Test Item Value Reference Interpretation Comments Range TROPONIN I (test 0.039 ng/mL See_Comment H [Automated code = 1415577278) message] The system which generated this result [...] biotin. Lab Interpretation Abnormal (test code = 89755-3) [facility] [id number] 10:14:27 Test Item Value Reference Range Interpretation Comments NT-proBNP (test code 3970 pg/mL See_Comment H [Autom ated = 8562817650) message] The system which generated this result transmitted reference range : <=450. The reference range was not used to interpret this result as normal/abnormal . LUZ (test code = LUZ) Biotin has been reported to cause a negative bias, interpret results relative to patient's use of biotin. Lab Interpretation Abnormal (test code = 58571-9) [facility]OL[facility] (45444)2021-11-19 10:06:07 Test Item Value Reference Range Interpretation Comments NA (test code = 136 mmol/L 135-145 3748688316) K (test code = 4.2 mmol/L 3.5-5.0 0027901315) CL (test code = 99 mmol/L 98-108 2686727813) CO2 TOTAL (test code = 25 mmol/L 23-31 8313273409) AGAP (test code = 2-16 6336224953) BUN (test code = 32 mg/dL 7-23 H 9925019085) GLUCOSE (test code = 75 mg/dL 70-110 0278861878) CREATININE (test code = 1.29 mg/dL 0.60-1.25 H 0556084046) TOTAL BILI (test code = 0.5 mg/dL 0.1-1.3 4446566707) CALCIUM (test code = 8.5 mg/dL 8.6-10.6 L 5684651162) T PROTEIN (test code = 6.7 g/dL 6.3-8.2 6807447695) ALBUMIN (test code = 3.8 g/dL 3.5-5.0 9316818488) ALK PHOS (test code = 75 U/L 34-122 3046847132) ALTv (test code = 9 U/L 5-50 1742-6) AST(SGOT) (test code = 17 U/L 13-40 5418951530) eGFR (test code = mL/min/1.73m2 5216244679) LUZ (test code = LUZ) Association of [...] tests). Lab Interpretation Abnormal (test code = 13273-2) [facility]07 Test Item Value Reference Range Interpretation Comments MAGNESIUM (test code = 4772811104) 2.1 mg/dL 1.7-2.4 Lab Interpretation (test code = Normal 06063-1) [facility]PHOSPHORUS2022-[facility]-28 10:05:47 Test Item Value Reference Range Interpretation Comments PHOSPHORUS (test code = 0704381665) 4.3 mg/dL 2.5-5.0 Lab Interpretation (test code = Normal 13324-5) [facility] CenterLACTATE [id number] 04:25:54 Test Item Value Reference Range Interpretation Comments LDH (test code = 1481591277) 321 U/L 300-600 Lab Interpretation (test code = Normal 18680-7) [facility]TR[facility] [id number] 01:07:32 Test Item Value Reference Interpretation Comments Range TROPONIN I (test 0.019 ng/mL See_Comment [Automated code = 5323914203) message] The system which generated this result [...] biotin. Lab Interpretation Normal (test code = 84018-1) [facility] CenterPROCALCITONIN2022-06-27 21:13:39 Test Item Value Reference Range Interpretation Comments Procalcitonin (test 0.05 ng/mL <0.07 code = 4271439810) LUZ (test code = LUZ) INTERPRETATION OF [...] For further information please refer to:[email or web address] Lab Interpretation Normal (test code = 20884-9) [facility] CenterVITAMIN B12, [id number] 20:59:39 Test Item Value Reference Range Interpretation Comments VIT B12 (test code = 224 pg/mL 240-930 L 2490892398) LUZ (test code = LUZ) Biotin has been reported to cause a positive bias, interpret results relative to patient's use of biotin. Lab Interpretation (test Abnormal code = 75188-8) [facility] CenterVIT[facility] D, [id number] 20:58:17 Test Item Value Reference Range Interpretation Comments VIT D 25OH (test code = 20 ng/mL 25-80 L 79962-0) LUZ (test code = LUZ) Deficiency: <20 ng/mLInsufficiency: 20-24 ng/mLOptimal: 25-80 ng/mL Lab Interpretation (test Abnormal code = 17523-1) [id number] 18:33:52 Test Item Value Reference Interpretation Comments Range TROPONIN I (test 0.024 ng/mL See_Comment [Automated code = 9061390921) message] The system which generated this result [...] biotin. Lab Interpretation Normal (test code = 04500-3) [id number] 16:46:44 Test Item Value Reference Interpretation Comments Range TROPONIN I (test 0.027 ng/mL See_Comment [Automated code = 0965395651) message] The system which generated this result [...] biotin. Lab Interpretation Normal (test code = 68441-4) [facility] CenterCREATINE [id number] 16:34:19 Test Item Value Reference Range Interpretation Comments CK (test code = 6192593058) 21 U/L 33-194 L Lab Interpretation (test code = Abnormal 54108-7) [facility] CenterD-[id number] 15:18:30 Test Item Value Reference Interpretation Comments Range D-DIMER (test code = See_Comment H [Autom ated 1229032381) message] The system which generated this result [...] diagnosis. Lab Interpretation Abnormal (test code = 58826-8) [facility] CenterProthrombin Time / [id number] 15:14:12 Test Item Value Reference Range Interpretation Comments PROTIME PATIENT (test See_Comment H [Auto mated message] code = 5964-2) The system [employer] generated this result transmitted ref erence range: 12.0 - 1 4.7 Seconds. The reference range was not used to int erpret this result as normal/abnormal . INR (test code = 6301-6) Nor mal INR <1.1; Warfarin Therap eutic range 2.0 to 3. 0 or 2.5 to 3.5, dep ending upon the indica tions. Lab Interpretation (test Abnormal code = 96957-0) [facility] CenterTHYROID STIMULATING [id number] 15:07:08 Test Item Value Reference Range Interpretation Comments TSH (test code = See_Comment [Automated message] 3407277044) The system Vyu generated this result transmitted ref erence range: 0.45 - 4 .70 mIU/L. The refe rence range was not u sed to interpret this result as normal/abnor mal. Lab Interpretation (test Normal code = 51931-6) [facility] CenterLIPID PANEL (01157)(TOTAL CHOLESTEROL, TRIGLYCERIDES, HDL)2021-11-18 14:47:08 Test Item Value Reference Range Interpretation Comments CHOL (test code = 87 mg/dL 120-200 L 7390921638) HDL (test code = 25 mg/dL >40 L 2490037382) HDLC RATIO (test code = See_Comment [Au tomated message] 1739277586) The system Vyu generated this result transmit beatrice reference range : <=5.0. The refe rence range was not u sed to interpret th is result as normal/abnormal . TRIG (test code = 116 mg/dL 30-170 7390094986) LDL CHOL (test code = 39 mg/dL See_Comment [Auto mated message] 62418-9) The system Vyu generated this result transmit beatrice reference range : <=160. The refe rence range was not u sed to interpret th is result as normal/abnormal . VLDL (test code = 23 mg/dL 5-60 8010456511) Lab Interpretation (test Abnormal code = 31041-5) [facility] CenterIRON [id number] 14:40:28 Test Item Value Reference Range Interpretation Comments IRON (test code = 2253745751) 44 ug/dL 50-160 L TIBC (test code = 1494325649) 420 ug/dL 250-410 H % FE SAT (test code = 6631633917) 10 % 20-50 L Lab Interpretation (test code = Abnormal 88719-9) [facility] CenterDIGOXIN2022-06-27 14:34:06 Test Item Value Reference Range Interpretation Comments DIGOXIN (test code = 0.9 ng/mL 0.8-1.6 8924799812) LUZ (test code = LUZ) Arrythmias: ?1.5 - 2.0 ng/mLToxic Range: ? Greater than or equal to 2.4 ng/mL Lab Interpretation (test Normal code = 45317-9) [facility] CenterURIC [id number] 14:33:51 Test Item Value Reference Range Interpretation Comments URIC ACID (test code = 8859562459) 10.0 mg/dL 3.6-8.0 H Lab Interpretation (test code = Abnormal 44470-5) [facility] CenterPHOSPHORUS2022-06-27 14:33:51 Test Item Value Reference Range Interpretation Comments PHOSPHORUS (test code = 5479768534) 4.0 mg/dL 2.5-5.0 Lab Interpretation (test code = Normal 78534-0) [facility] CenterGLYCOSYLATED HEMOGLOBIN (A1C)2021-11-18 14:13:22 Test Item Value Reference Range Interpretation Comments HGB A1C (test code = 7.6 % 4.0-5.7 H 4548-4) LUZ (test code = LUZ) Reference RangesNormal: <5.7%Prediabetes: 5.7 - 6.4%Diabetes: > 6.5% Lab Interpretation (test Abnormal code = 74649-9) [facility] CenterSEDIMENTATION [id number] 12:52:47 Test Item Value Reference Range Interpretation Comments ESR (test code = See_Comment H [Automated message] 2385142367) The system Vyu generated this result transmitted ref erence range: 0 - 10 m m/HR. The reference r stephanie was not used to interpret this result as normal/abnor mal. Lab Interpretation (test Abnormal code = 67496-3) [facility] CenterTROPONIN [id number] 11:02:13 Test Item Value Reference Interpretation Comments Range TROPONIN I (test 0.021 ng/mL See_Comment [Automated code = 1624411505) message] The system which generated this result [...] biotin. Lab Interpretation Normal (test code = 35358-0) [facility] CenterN-TERMINAL [id number] 10:58:54 Test Item Value Reference Range Interpretation Comments NT-proBNP (test code 2210 pg/mL See_Comment H [Autom ated = 9101618642) message] The system which generated this result transmitted reference range : <=450. The reference range was not used to interpret this result as normal/abnormal . LUZ (test code = LUZ) Biotin has been reported to cause a negative bias, interpret results relative to patient's use of biotin. Lab Interpretation Abnormal (test code = 41958-5) [facility] CenterMAGNESIUM2022-06-27 10:50:36 Test Item Value Reference Range Interpretation Comments MAGNESIUM (test code = 2500033245) 1.8 mg/dL 1.7-2.4 Lab Interpretation (test code = Normal 35305-6) [facility] CenterCOMP. METABOLIC PANEL (33478)2021-11-18 10:50:16 Test Item Value Reference Range Interpretation Comments NA (test code = 136 mmol/L 135-145 8937480167) K (test code = 4.8 mmol/L 3.5-5.0 8475580800) CL (test code = 98 mmol/L 98-108 8560770072) CO2 TOTAL (test code = 24 mmol/L 23-31 1320533338) AGAP (test code = 2-16 2242208797) BUN (test code = 33 mg/dL 7-23 H 6052168263) GLUCOSE (test code = 119 mg/dL 70-110 H 2081092073) CREATININE (test code = 1.35 mg/dL 0.60-1.25 H 3884752948) TOTAL BILI (test code = 0.6 mg/dL 0.1-1.2 7027440328) CALCIUM (test code = 9.6 mg/dL 8.6-10.6 5551772043) T PROTEIN (test code = 7.3 g/dL 6.3-8.2 9837741915) ALBUMIN (test code = 4.4 g/dL 3.5-5.0 5583478284) ALK PHOS (test code = 85 U/L 34-122 5123832463) ALTv (test code = 11 U/L 5-50 2-6) AST(SGOT) (test code = 15 U/L 13-40 3069061587) eGFR (test code = mL/min/1.73m2 2677577052) LUZ (test code = LUZ) Association of [...] tests). Lab Interpretation Abnormal (test code = 19238-5) [facility] CenterLIPASE2022-06-27 10:50:16 Test Item Value Reference Range Interpretation Comments LIPASE (test code = 1406929686) 26 U/L 0-220 Lab Interpretation (test code = Normal 36858-0) [facility] CenterLactic Acid Whole [id number] 10:44:04 Test Item Value Reference Range Interpretation Comments LACTIC ACID (test code = 1.98 mmol/L 0.50-2.20 8241355933) Lab Interpretation (test code = Normal 37014-8) [facility] CenterCB WITH [id number] 10:38:32 Test Item Value Reference Range Interpretation [...] (test code = 52.0 fL 38.5-51.6 H 42523-3) RDW-CV (test code = 17.3 % 12.1-15.4 H 788-0) PLT (test code = See_Comment [Automated 777-3) message] The sy stem which generated this result transmitted reference range : 150 - 328 10*3/ ?L. The reference r stephanie was not used to interpret this result as normal/abnormal . MPV (test code = 9.6 fL 9.8-13.0 L 35797-5) NRBC/100 WBC (test See_Comment [Automat ed code = 8281643529) message] The system which generated this result transmitted reference range : 0.0 - 10.0 /100 WBCs. The refer ence range was not u sed to interpret th is result as normal/abnormal . NRBC x10^3 (test code <0.01 See_Comment [Auto mated = 5619687298) message] The s ystem which generated this result transmitted reference range : 10*3/?L. The reference range was not used to interpret this result as normal/abnormal . GRAN MAT (NEUT) % 55.3 % (test code = 770-8) IMM GRAN % (test code 0.50 % = 4972558032) LYMPH % (test code = 11.1 % 736-9) MONO % (test code = 15.9 % 5905-5) EOS % (test code = 16.2 % 713-8) BASO % (test code = 1.0 % 706-2) GRAN MAT x10^3(ANC) 3.35 10*3/uL 1.99-6.95 (test code = 9288481452) IMM GRAN x10^3 (test 0.03 10*3/uL 0.00-0.06 code = 1981570678) LYMPH x10^3 (test code 0.67 10*3/uL 1.09-3.23 L = 731-0) MONO x10^3 (test code 0.96 10*3/uL 0.36-1.02 = 742-7) EOS x10^3 (test code = 0.98 10*3/uL 0.06-0.53 H 711-2) BASO x10^3 (test code 0.06 10*3/uL 0.01-0.09 = 704-7) Lab Interpretation Abnormal (test code = 65808-7) [facility] CenterDIGOXIN2022-04-20 11:24:52 Test Item Value Reference Range Interpretation Comments DIGOXIN (test code = 0.8 ng/mL 0.8-1.6 Slight hemolysis 6826736160) LUZ (test code = LUZ) Arrythmias: ?1.5 - 2.0 ng/mLToxic Range: ? Greater than or equal to 2.4 ng/mL Lab Interpretation Normal (test code = 09439-3) [facility] CenterTROPONIN [id number] 11:14:07 Test Item Value Reference Interpretation Comments Range TROPONIN I (test 0.022 ng/mL See_Comment [Automated code = 1536717412) message] The system which generated this result [...] biotin. Lab Interpretation Normal (test code = 05718-9) [facility] CenterComplete Metabolic [id number] 11:02:47 Test Item Value Reference Range Interpretation Comments NA (test code = 137 mmol/L 135-145 5451775725) K (test code = 5.1 mmol/L 3.5-5.0 H 0640092593) CL (test code = 101 mmol/L 98-108 6672351678) CO2 TOTAL (test code = 19 mmol/L 23-31 L 3091553240) AGAP (test code = 2-16 H 0322025170) BUN (test code = 31 mg/dL 7-23 H 2397798998) GLUCOSE (test code = 276 mg/dL 70-110 H 9204708708) CREATININE (test code = 1.11 mg/dL 0.60-1.25 8948692004) TOTAL BILI (test code = 1.2 mg/dL 0.1-1.1 H 1470445772) CALCIUM (test code = 9.3 mg/dL 8.6-10.6 5840504221) T PROTEIN (test code = 7.8 g/dL 6.3-8.2 0096895705) ALBUMIN (test code = 4.5 g/dL 3.5-5.0 3075879603) ALK PHOS (test code = 97 U/L 34-122 5412246132) ALTv (test code = 14 U/L 5-50 1742-6) AST(SGOT) (test code = 32 U/L 13-40 8467634079) eGFR (test code = mL/min/1.73m2 8188126359) LUZ (test code = LUZ) Association of [...] tests). Lab Interpretation Abnormal (test code = 52630-9) [facility] CenterLipase, [id number] 11:02:26 Test Item Value Reference Range Interpretation Comments LIPASE (test code = 8825072862) 41 U/L 0-220 Lab Interpretation (test code = Normal 64706-8) [facility] CenterCB with Tcjdxitzlqmd2575-00-42 10:38:45 Test Item Value Reference Range Interpretation [...] RDW-SD (test code = 46.9 fL 38.5-51.6 62648-0) RDW-CV (test code = 15.8 % 12.1-15.4 H 788-0) PLT (test code = See_Comment H [Automated 777-3) message] The sy stem which generated this result transmitted reference range : 150 - 328 10*3/ ?L. The reference r stephanie was not used to interpret this result as normal/abnormal . MPV (test code = 10.6 fL 9.8-13.0 77721-6) NRBC/100 WBC (test See_Comment [Automat ed code = 7027162463) message] The system which generated this result transmitted reference range : 0.0 - 10.0 /100 WBCs. The refer ence range was not u sed to interpret th is result as normal/abnormal . NRBC x10^3 (test code <0.01 See_Comment [Auto mated = 2270950139) message] The s ystem which generated this result transmitted reference range : 10*3/?L. The reference range was not used to interpret this result as normal/abnormal . GRAN MAT (NEUT) % 75.6 % (test code = 770-8) IMM GRAN % (test code 0.60 % = 3059612615) LYMPH % (test code = 13.2 % 736-9) MONO % (test code = 9.2 % 5905-5) EOS % (test code = 0.9 % 713-8) BASO % (test code = 0.5 % 706-2) GRAN MAT x10^3(ANC) 6.17 10*3/uL 1.99-6.95 (test code = 0988360541) IMM GRAN x10^3 (test 0.05 10*3/uL 0.00-0.06 code = 9436709076) LYMPH x10^3 (test code 1.08 10*3/uL 1.09-3.23 L = 731-0) MONO x10^3 (test code 0.75 10*3/uL 0.36-1.02 = 742-7) EOS x10^3 (test code = 0.07 10*3/uL 0.06-0.53 711-2) BASO x10^3 (test code 0.04 10*3/uL 0.01-0.09 = 704-7) Lab Interpretation Abnormal (test code = 72271-6) [facility] CenterPOCT GLUCOSE (AUTOMATED)2021-09-11 10:08:24 Test Item Value Reference Range Interpretation Comments POCT GLU (test code = 7600743923) 273 mg/dL 70-110 H Lab Interpretation (test code = Abnormal 46249-6) [facility] CenterTROPONIN [id number] 22:12:38 Test Item Value Reference Interpretation Comments Range TROPONIN I (test 0.012 ng/mL See_Comment [Automated code = 3617006545) message] The system which generated this result [...] biotin. Lab Interpretation Normal (test code = 76543-5) [facility] CenterN-TERMINAL [id number] 22:09:20 Test Item Value Reference Range Interpretation Comments NT-proBNP (test code 2740 pg/mL See_Comment H [Autom ated = 5404869589) message] The system which generated this result transmitted reference range : <=450. The reference range was not used to interpret this result as normal/abnormal . LUZ (test code = LUZ) Biotin has been reported to cause a negative bias, interpret results relative to patient's use of biotin. Lab Interpretation Abnormal (test code = 04339-6) [facility] CenterDIGOXIN2022-03-03 22:03:39 Test Item Value Reference Range Interpretation Comments DIGOXIN (test code = 0.8 ng/mL 0.8-1.6 5443552760) LUZ (test code = LUZ) Arrythmias: ?1.5 - 2.0 ng/mLToxic Range: ? Greater than or equal to 2.4 ng/mL Lab Interpretation (test Normal code = 27504-9) [facility] CenterCOMP. METABOLIC PANEL (44802)2021-07-25 22:01:19 Test Item Value Reference Range Interpretation Comments NA (test code = 135 mmol/L 135-145 4704050316) K (test code = 4.5 mmol/L 3.5-5.0 9977767764) CL (test code = 97 mmol/L 98-108 L 0487574337) CO2 TOTAL (test code = 26 mmol/L 23-31 4328124507) AGAP (test code = 2-16 5652772695) BUN (test code = 24 mg/dL 7-23 H 4591492398) GLUCOSE (test code = 180 mg/dL 70-110 H 4619655264) CREATININE (test code = 1.12 mg/dL 0.60-1.25 9851819158) TOTAL BILI (test code = 0.9 mg/dL 0.1-1.9 9247726550) CALCIUM (test code = 9.0 mg/dL 8.6-10.6 8228403066) T PROTEIN (test code = 7.6 g/dL 6.3-8.2 6537177205) ALBUMIN (test code = 4.3 g/dL 3.5-5.0 0931804731) ALK PHOS (test code = 111 U/L 34-122 4501650951) ALTv (test code = 13 U/L 5-50 1742-6) AST(SGOT) (test code = 16 U/L 13-40 5212233230) eGFR (test code = mL/min/1.73m2 9688070109) LUZ (test code = LUZ) Association of [...] tests). Lab Interpretation Abnormal (test code = 35028-2) [facility] CenterMAGNESIUM2022-03-03 22:01:19 Test Item Value Reference Range Interpretation Comments MAGNESIUM (test code = 2682148191) 2.0 mg/dL 1.7-2.4 Lab Interpretation (test code = Normal 05588-7) [facility] CenterLIPASE2022-03-03 22:00:53 Test Item Value Reference Range Interpretation Comments LIPASE (test code = 2619174489) 38 U/L 0-220 Lab Interpretation (test code = Normal 32279-3) [facility] CenterCB WITH [id number] 21:49:30 Test Item Value Reference Range Interpretation [...] RDW-SD (test code = 49.0 fL 38.5-51.6 14573-4) RDW-CV (test code = 15.9 % 12.1-15.4 H 788-0) PLT (test code = See_Comment H [Automated 777-3) message] The sy stem which generated this result transmitted reference range : 150 - 328 10*3/ ?L. The reference r stephanie was not used to interpret this result as normal/abnormal . MPV (test code = 10.1 fL 9.8-13.0 09940-4) NRBC/100 WBC (test See_Comment [Automat ed code = 7356598783) message] The system which generated this result transmitted reference range : 0.0 - 10.0 /100 WBCs. The refer ence range was not u sed to interpret th is result as normal/abnormal . NRBC x10^3 (test code <0.01 See_Comment [Auto mated = 7525837783) message] The s ystem which generated this result transmitted reference range : 10*3/?L. The reference range was not used to interpret this result as normal/abnormal . GRAN MAT (NEUT) % 75.3 % (test code = 770-8) IMM GRAN % (test code 0.50 % = 7862601864) LYMPH % (test code = 14.0 % 736-9) MONO % (test code = 8.2 % 5905-5) EOS % (test code = 1.2 % 713-8) BASO % (test code = 0.8 % 706-2) GRAN MAT x10^3(ANC) 5.49 10*3/uL 1.99-6.95 (test code = 4550575139) IMM GRAN x10^3 (test 0.04 10*3/uL 0.00-0.06 code = 7975705151) LYMPH x10^3 (test code 1.02 10*3/uL 1.09-3.23 L = 731-0) MONO x10^3 (test code 0.60 10*3/uL 0.36-1.02 = 742-7) EOS x10^3 (test code = 0.09 10*3/uL 0.06-0.53 711-2) BASO x10^3 (test code 0.06 10*3/uL 0.01-0.09 = 704-7) Lab Interpretation Abnormal (test code = 72331-2) [facility] GLUCOSE (AUTOMATED)2021-07-25 21:34:24 Test Item Value Reference Range Interpretation Comments POCT GLU (test code = 0755274683) 177 mg/dL 70-110 H Lab Interpretation (test code = Abnormal 72207-0) [facility] CenterTROPONIN [id number] 02:26:02 Test Item Value Reference Interpretation Comments Range TROPONIN I (test 0.014 ng/mL See_Comment [Automated code = 8414180350) message] The system which generated this result transmitted reference range : <=0.034. The reference range was not used to interpret this result as normal/abnormal . ULZ (test code = Reference (Normal) LUZ) Range [...] biotin. Lab Interpretation Normal (test code = 08179-9) [facility] CenterCOM. METABOLIC PANEL (27648)2021-07-13 02:14:42 Test Item Value Reference Range Interpretation Comments NA (test code = 136 mmol/L 135-145 6402170836) K (test code = 4.9 mmol/L 3.5-5.0 3488837201) CL (test code = 102 mmol/L 98-108 1272539259) CO2 TOTAL (test code = 25 mmol/L 23-31 3782180335) AGAP (test code = 2-16 3293307203) BUN (test code = 23 mg/dL 7-23 5812836039) GLUCOSE (test code = 209 mg/dL 70-110 H 3445788241) CREATININE (test code = 0.95 mg/dL 0.60-1.25 2479686715) TOTAL BILI (test code = 1.3 mg/dL 0.1-1.1 H 3407700932) CALCIUM (test code = 8.9 mg/dL 8.6-10.6 1377951782) T PROTEIN (test code = 7.9 g/dL 6.3-8.2 1412592484) ALBUMIN (test code = 4.5 g/dL 3.5-5.0 6944978145) ALK PHOS (test code = 115 U/L 34-122 0596988179) ALTv (test code = 13 U/L 5-50 1742-6) AST(SGOT) (test code = 17 U/L 13-40 3863462941) eGFR (test code = mL/min/1.73m2 7186380412) LUZ (test code = LUZ) Association of [...] tests). Lab Interpretation Abnormal (test code = 77750-3) [facility] CenterLIPASE20[facility] 02:14:01 Test Item Value Reference Range Interpretation Comments LIPASE (test code = 6075071441) 32 U/L 0-220 Lab Interpretation (test code = Normal 34252-7) [facility] WITH [id number] 02:10:20 Test Item Value Reference Range Interpretation [...] RDW-SD (test code = 50.7 fL 38.5-51.6 01275-3) RDW-CV (test code = 16.4 % 12.1-15.4 H 788-0) PLT (test code = See_Comment H [Automated 777-3) message] The sy stem which generated this result transmitted reference range : 150 - 328 10*3/ ?L. The reference r stephanie was not used to interpret this result as normal/abnormal . MPV (test code = 10.6 fL 9.8-13.0 51395-9) NRBC/100 WBC (test See_Comment [Automat ed code = 0806475788) message] The system which generated this result transmitted reference range : 0.0 - 10.0 /100 WBCs. The refer ence range was not u sed to interpret th is result as normal/abnormal . NRBC x10^3 (test code <0.01 See_Comment [Auto mated = 5617438572) message] The s ystem which generated this result transmitted reference range : 10*3/?L. The reference range was not used to interpret this result as normal/abnormal . GRAN MAT (NEUT) % 77.0 % (test code = 770-8) IMM GRAN % (test code 0.80 % = 6055513729) LYMPH % (test code = 10.6 % 736-9) MONO % (test code = 9.7 % 5905-5) EOS % (test code = 1.2 % 713-8) BASO % (test code = 0.7 % 706-2) GRAN MAT x10^3(ANC) 5.86 10*3/uL 1.99-6.95 (test code = 4071156497) IMM GRAN x10^3 (test 0.06 10*3/uL 0.00-0.06 code = 9483771616) LYMPH x10^3 (test code 0.81 10*3/uL 1.09-3.23 L = 731-0) MONO x10^3 (test code 0.74 10*3/uL 0.36-1.02 = 742-7) EOS x10^3 (test code = 0.09 10*3/uL 0.06-0.53 711-2) BASO x10^3 (test code 0.05 10*3/uL 0.01-0.09 = 704-7) Lab Interpretation Abnormal (test code = 33024-5) [facility]PO[facility]2021-02-26 21:45:11 Test Item Value Reference Range Interpretation Comments POCT GLU (test code = 9347809912) 220 mg/dL 70-110 H Lab Interpretation (test code = Abnormal 43209-6) [facility] CenterTROPONIN [id number] 18:34:03 Test Item Value Reference Interpretation Comments Range TROPONIN I (test 0.016 ng/mL See_Comment [Automated code = 3315088509) message] The system which generated this result [...] biotin. Lab Interpretation Normal (test code = 31546-1) [facility]PO[facility]2021-02-26 16:33:16 Test Item Value Reference Range Interpretation Comments POCT GLU (test code = 1772006459) 169 mg/dL 70-110 H Lab Interpretation (test code = Abnormal 96651-8) [facility] CenterTHYROID STIMULATING [id number] 14:20:21 Test Item Value Reference Range Interpretation Comments TSH (test code = See_Comment [Automated message] 9428627568) The system Vyu generated this result transmitted ref erence range: 0.45 - 4 .70 mIU/L. The refe rence range was not u sed to interpret this result as normal/abnor mal. Lab Interpretation (test Normal code = 31351-6) [facility] CenterTROPONIN [id number] 14:01:59 Test Item Value Reference Interpretation Comments Range TROPONIN I (test 0.023 ng/mL See_Comment [Automated code = 8206898567) message] The system which generated this result [...] biotin. Lab Interpretation Normal (test code = 98597-1) [facility] CenterN-TERMINAL [id number] 13:58:56 Test Item Value Reference Range Interpretation Comments NT-proBNP (test code 1100 pg/mL See_Comment H [Autom ated = 0760345361) message] The system which generated this result transmitted reference range : <=450. The reference range was not used to interpret this result as normal/abnormal . LUZ (test code = LUZ) Biotin has been reported to cause a negative bias, interpret results relative to patient's use of biotin. Lab Interpretation Abnormal (test code = 87120-0) [facility] CenterGlycosylated Hemoglobin (A1C)2021-02-26 13:27:52 Test Item Value Reference Range Interpretation Comments HGB A1C (test code = 8.1 % 4.0-5.7 H 4548-4) LUZ (test code = LUZ) Reference RangesNormal: <5.7%Prediabetes: 5.7 - 6.4%Diabetes: > 6.5% Lab Interpretation (test Abnormal code = 70009-7) [facility] GLUCOSE (AUTOMATED)2021-02-26 13:15:49 Test Item Value Reference Range Interpretation Comments POCT GLU (test code = 9262687903) 209 mg/dL 70-110 H Lab Interpretation (test code = Abnormal 54622-8) [facility] GLUCOSE (AUTOMATED)2021-02-26 13:15:49 Test Item Value Reference Range Interpretation Comments POCT GLU (test code = 5349473349) 111 mg/dL 70-110 H Lab Interpretation (test code = Abnormal 17686-3) [facility] CenterMagnesium [id number] 11:27:09 Test Item Value Reference Range Interpretation Comments MAGNESIUM (test code = 5306862827) 1.7 mg/dL 1.7-2.4 Lab Interpretation (test code = Normal 84656-7) [facility] CenterBASIC METABOLIC PANEL (NA, K, CL, CO2, GLUCOSE, BUN, CREATININE, CA)2021-02-26 11:26:44 Test Item Value Reference Range Interpretation Comments NA (test code = 137 mmol/L 135-145 7536692149) K (test code = 5.3 mmol/L 3.5-5.0 H 8151780398) CL (test code = 101 mmol/L 98-108 2267441601) CO2 TOTAL (test code = 25 mmol/L 23-31 7921466365) AGAP (test code = 2-16 1183516533) BUN (test code = 37 mg/dL 7-23 H 2701139012) GLUCOSE (test code = 153 mg/dL 70-110 H 6308390362) CREATININE (test code = 1.26 mg/dL 0.60-1.25 H 7946060671) CALCIUM (test code = 10.3 mg/dL 8.6-10.6 8222886497) eGFR (test code = mL/min/1.73m2 8022728852) LUZ (test code = LUZ) Association of [...] tests). Lab Interpretation Abnormal (test code = 73535-5) [facility] with Lhfvryleclvj5391-12-45 10:10:58 Test Item Value Reference Range Interpretation Comments WBC (test code = See_Comment [Automated 8506-2) message] The sy stem which generated this [...] RDW-SD (test code = 50.6 fL 38.5-51.6 33376-6) RDW-CV (test code = 16.1 % 12.1-15.4 H 788-0) PLT (test code = See_Comment [Automated 777-3) message] The sy stem which generated this result transmitted reference range : 150 - 328 10*3/ ?L. The reference r stephanie was not used to interpret this result as normal/abnormal . MPV (test code = 10.2 fL 9.8-13.0 79969-2) NRBC/100 WBC (test See_Comment [Automat ed code = 6940912342) message] The system which generated this result transmitted reference range : 0.0 - 10.0 /100 WBCs. The refer ence range was not u sed to interpret th is result as normal/abnormal . NRBC x10^3 (test code <0.01 See_Comment [Auto mated = 3579314048) message] The s ystem which generated this result transmitted reference range : 10*3/?L. The reference range was not used to interpret this result as normal/abnormal . GRAN MAT (NEUT) % 58.5 % (test code = 770-8) IMM GRAN % (test code 0.40 % = 2274077153) LYMPH % (test code = 22.8 % 736-9) MONO % (test code = 13.4 % 5905-5) EOS % (test code = 4.2 % 713-8) BASO % (test code = 0.7 % 706-2) GRAN MAT x10^3(ANC) 4.20 10*3/uL 1.99-6.95 (test code = 1898586619) IMM GRAN x10^3 (test 0.03 10*3/uL 0.00-0.06 code = 7694903450) LYMPH x10^3 (test code 1.64 10*3/uL 1.09-3.23 = 731-0) MONO x10^3 (test code 0.96 10*3/uL 0.36-1.02 = 742-7) EOS x10^3 (test code = 0.30 10*3/uL 0.06-0.53 711-2) BASO x10^3 (test code 0.05 10*3/uL 0.01-0.09 = 704-7) Lab Interpretation Abnormal (test code = 46378-9) [facility] METABOLIC PANEL (NA, K, CL, CO2, GLUCOSE, BUN, CREATININE, CA)2021-02-26 06:10:25 Test Item Value Reference Range Interpretation Comments NA (test code = 135 mmol/L 135-145 4969617970) K (test code = 6.2 mmol/L 3.5-5.0 HH 9362266539) CL (test code = 102 mmol/L 98-108 4863151801) CO2 TOTAL (test code = 22 mmol/L 23-31 L 4296140890) AGAP (test code = 2-16 2308949908) BUN (test code = 39 mg/dL 7-23 H 1340541428) GLUCOSE (test code = 157 mg/dL 70-110 H 8516683024) CREATININE (test code = 1.17 mg/dL 0.60-1.25 1912255892) CALCIUM (test code = 10.1 mg/dL 8.6-10.6 1044394060) eGFR (test code = mL/min/1.73m2 2188608512) LUZ (test code = LUZ) Association of [...] tests). Lab Interpretation Abnormal (test code = 92407-8) [facility] 00:45:44 Test Item Value Reference Range Interpretation Comments POCT GLU (test code = 0383880700) 183 mg/dL 70-110 H Lab Interpretation (test code = Abnormal 39030-1) [facility] [id number] 19:47:30 Test Item Value Reference Interpretation Comments Range TROPONIN I (test 0.011 ng/mL See_Comment [Automated code = 7950276289) message] The system which generated this result [...] biotin. Lab Interpretation Normal (test code = 68059-5) [facility] CenterACT[facility] THRMPLAS [id number] 19:44:49 Test Item Value Reference Range Interpretation Comments APTT Patient (test See_Comment [Automat ed code = 3173-2) message] The system which generated this result transmitted reference range : 23 - 38 Seconds . The reference range was not used to interpr et this result as normal/abnormal . LUZ (test code = LUZ) The [facility] patient population mean normal value for aPTT is 30 seconds. Lab Interpretation Normal (test code = 82134-8) [facility]AL [id number] 19:44:08 Test Item Value Reference Range Interpretation Comments NT-proBNP (test code 1030 pg/mL See_Comment H [Autom ated = 1122626021) message] The system which generated this result transmitted reference range : <=450. The reference range was not used to interpret this result as normal/abnormal . LZU (test code = LUZ) Biotin has been reported to cause a negative bias, interpret results relative to patient's use of biotin. Lab Interpretation Abnormal (test code = 62798-4) [facility] CenterPROTHROMBIN TIME / [id number] 19:41:44 Test Item Value Reference Range Interpretation [...] tions. Lab Interpretation (test Abnormal code = 44880-8) [facility] Center[facility]2021-[facility] 19:38:22 Test Item Value Reference Range Interpretation Comments DIGOXIN (test code = 1.1 ng/mL 0.8-1.6 5005521132) LUZ (test code = LUZ) Arrythmias: ?1.5 - 2.0 ng/mLToxic Range: ? Greater than or equal to 2.4 ng/mL Lab Interpretation (test Normal code = 33560-6) [facility]2021-[facility]-04 19:36:04 Test Item Value Reference Range Interpretation Comments MAGNESIUM (test code = 3204393494) 1.7 mg/dL 1.7-2.4 Lab Interpretation (test code = Normal 21397-1) [facility] CenterCOMP[facility]OLIC PANEL (76886)2021-02-25 19:36:03 Test Item Value Reference Range Interpretation Comments NA (test code = 136 mmol/L 135-145 8088050183) K (test code = 6.0 mmol/L 3.5-5.0 H 8600419078) CL (test code = 104 mmol/L 98-108 7730585785) CO2 TOTAL (test code = 22 mmol/L 23-31 L 0195039580) AGAP (test code = 2-16 2591644345) BUN (test code = 35 mg/dL 7-23 H 0158121626) GLUCOSE (test code = 183 mg/dL 70-110 H 8161238712) CREATININE (test code = 1.15 mg/dL 0.60-1.25 6086416867) TOTAL BILI (test code = 0.6 mg/dL 0.1-1.0 7845067340) CALCIUM (test code = 10.0 mg/dL 8.6-10.6 6687570523) T PROTEIN (test code = 7.6 g/dL 6.3-8.2 5234768610) ALBUMIN (test code = 4.4 g/dL 3.5-5.0 6624812153) ALK PHOS (test code = 99 U/L 34-122 3584025427) ALTv (test code = 16 U/L 5-50 1742-6) AST(SGOT) (test code = 19 U/L 13-40 8397478550) eGFR (test code = mL/min/1.73m2 4638337958) LUZ (test code = LUZ) Association of [...] tests). Lab Interpretation Abnormal (test code = 24334-2) [facility] WITH [id number] 19:23:22 Test Item Value Reference Range Interpretation Comments WBC (test code = See_Comment [Automated 8280-2) message] The sy stem which generated this result transmitted reference range : 4.20 - 10.70 10*3/?L. The reference range was not used to interpret this result as normal/abnormal . RBC (test code = See_Comment L [Automated 774-5) message] The sy stem which generated this [...] RDW-SD (test code = 49.9 fL 38.5-51.6 99787-1) RDW-CV (test code = 15.9 % 12.1-15.4 H 788-0) PLT (test code = See_Comment [Automated 777-3) message] The sy stem which generated this result transmitted reference range : 150 - 328 10*3/ ?L. The reference r stephanie was not used to interpret this result as normal/abnormal . MPV (test code = 10.0 fL 9.8-13.0 03129-8) NRBC/100 WBC (test See_Comment [Automat ed code = 2282636020) message] The system which generated this result transmitted reference range : 0.0 - 10.0 /100 WBCs. The refer ence range was not u sed to interpret th is result as normal/abnormal . NRBC x10^3 (test code <0.01 See_Comment [Auto mated = 5219479578) message] The s ystem which generated this result transmitted reference range : 10*3/?L. The reference range was not used to interpret this result as normal/abnormal . GRAN MAT (NEUT) % 63.7 % (test code = 770-8) IMM GRAN % (test code 0.50 % = 2463280494) LYMPH % (test code = 21.1 % 736-9) MONO % (test code = 11.2 % 5905-5) EOS % (test code = 2.8 % 713-8) BASO % (test code = 0.7 % 706-2) GRAN MAT x10^3(ANC) 5.20 10*3/uL 1.99-6.95 (test code = 6983801484) IMM GRAN x10^3 (test 0.04 10*3/uL 0.00-0.06 code = 3296419672) LYMPH x10^3 (test code 1.73 10*3/uL 1.09-3.23 = 731-0) MONO x10^3 (test code 0.92 10*3/uL 0.36-1.02 = 742-7) EOS x10^3 (test code = 0.23 10*3/uL 0.06-0.53 711-2) BASO x10^3 (test code 0.06 10*3/uL 0.01-0.09 = 704-7) Lab Interpretation Abnormal (test code = 93697-2) [facility] CenterCT HEAD WO [id number] 20:42:13 No acute intracranial hemorrhage or mass effect. No cervical fracture or subluxation. Degenerative changes. Partially visualized layering right-sided pleural effusion. 1.6 cm leftthyroid lobe nodule, correlate with thyroid ultrasound on a non emergentbasis if not already performed. Preliminary Report Dictated by Resident: Mani Kim MD., have reviewed this study and agree withtheabove [...] reviewed this study and agree with theabove report.[facility] CenterCT CERVICAL SPINE WO CONTRAST 2020-07-29 [...] reviewed this study and agree with theabove report.[facility] CenterCyto Pleural [id number] 00:48:00 Test Item Value Reference Range Interpretation Comments Case Report (test code Non-Gynecologic = 4915996407) Cytology ?Case: [id number] ?Authorizing Provider: ?Garett Armas MD ? Collected: ? 06/28/2020 1351 ?Ordering Location: ? ? [facility] Medicine Surgery Unit ?Received: ?06/28/2020 1416 ?Specimen: ? ?PLEURAL, RIGHT, EFFUSION ? Final Diagnosis (test h7yxeKJnFMStz8xyPKUkuC code = 2592511310) FuZzEwMzNcZnRuYmpcdWMx WWbiwkCoAZrcc7GmV5GuGl AwMFxhbnNpXGRlZmxhbmcx RILfIXP9ieMvHDQoZInmOY LcMDgjEz3rnQMyyZfnEaLm QCUyy6hdvkPPglwyqGq5x1 chBIVwQcQ1cOPoHXfeF0qz hhJgmUEuKYGgOOg0fJ90KU ZzeS5gvWVkLZekulRlRhV6 CKxdZZXiTcB3LUFolBYdJW JbQ2xxAWGcJNpfFIKjDMcp fKUtHNV1YCXfDJD9OYypec FfibI5PMyxsCYfEhH3YXm4 q1darGuhWARsSMO0g5whUZ ognxNqHE1epe9baDh2k2pk czEgRGVmYXVsdCBQYXJhZ3 HemUiiVh1diJe2yNapYsix CDG9Jaw3TH3gzn55oim3oM ukQGDtcwhdPlJ7YToiAXRw cuojTVd6MSirLDFcwJTsAA QzsCSoS0FaLFbsQW4pplx3 AtIqCV4fqconTOrvNBSvOV B6AnCiCAWyz9JvmarpDkRf uv7wec35FYN5f4KiuNeyJK H4YBP2GuPySv6ppJSbQMPd FC7vNqQcdQFcXZGueq16fB meRCwdqmCcwG4vVgLsNCCt lERxBXGzTG5uoMXrIPUgaW 5ucmxjXHBnYnJkcmhlYWRc yNedugEyQd6npSizLMQ0JZ snK1yetB8aMoB2ASacO8ix iQ5bNKa2FAcjdKW2VCRlzT 2uSF2eppxsn1laHZU4DHhh ALHwwaZ1wrYnDRTqyTCoP3 CfjP76QwZrbHTeL3EvfZ3d NRqrGUGyjhq3VvJfBz8vpT XzwZT8LBkcZxsdTUdlJYDq bmNvbnRccGduZGVjXHBsYW luXHBsYWluXGYwXGZzMjRc nSqobOkbcK2kEtNcJgFrQF fsLX1sCJBoQ4hqhISxFBVm GQCeW1vvWyExdH5wdVwpNZ xmczIwXHBhclxwbGFpblxm MVxmczIwXGxhbmcxMDMzXG bpE4hlHpUhTHGbbEceOTez n9VdVTGfGNXsGlmzofHxLB GtLE0jOFIoBKxsIALaPDKi MjBcbGFuZzEwMzNcaGljaF hyJXtyInUdHTSdTNypE0mu HyUlS3MeOODcQ7umwUAoaV S7U5ugieEuLAUfJGaUDOOG LCBSSUdIVDsgVEhPUkFDRU 5URVNJUyBGTFVJRFxwbGFp blxmMVxmczIwXGxhbmcxMD QsDMxrA8luDdWrSDHohQvm RTvhm2OzEYBlXIXoQphqgz IwXGIgOlxwYXIgICAgICAt MTVXBw8RASCuBM9HLHQIKC GCLK0FTKTLKU7TBI2WXRAY BX3CCFPTA7atGKUkMXMhGU OyHM5NEZ8XASvZErFLETZH RUxMUyBJREVOVElGSUVEIC xGCCRwG99JXCBWQUdczNap aD2iJuSpAePlPJmeBK3gNQ WgK3ieqCQlUWKuBYHpQ8eu KoTxpK2riMtaKGxzzeUfIR SwkeqzRTAmeDclmU9tGcZl KtDeBpvvNU5zNFTgD7cgkI MuLEBwIFCdY0imNyCubA0i aFxmMVxjZjJcZnMyMiBGYX UstQBoFDDyCBbsAT1UTnCe KRGhCK5vHNTyLTVxGBofLj BBTVxwbGFpblxmMVxmczIw BIyvxveoJEOlATlzF8niHj OfZDSeyWlqGVpzg5PfDTTu GEFhDpQweBFzUBLhzt43QX U7MxWrr8P7TCHhBmFpKLVs PQ8vdEgcOGGgNQ0sERCnP4 cblH7cbes9DgOiLRFiUxE0 PSFlbfR7Tap5JICxMIeac7 cct2UbR7PxeJJnfIb5b9xl OMRtIwD5tDKqOKzlR0dvgo LwvFPeLINoOXf3zLvsYqXx SEFlw1ullgTjIdJnDRViYN HwTNPpgKhgrox4sI95MZNe nM0fbZRuZUccyqVmQsN4EB ooOYOhRtQ3NNMgyKBcBLDk H6viNJYbCNfrHHTdSQksiY JrUIS8kHwla2D1aUGmfHAg nKwfXzOfVjRkPCJSk5WiHT w6tAquG3QwSPNfQtC1hPJv UFWiTXvhOFQyWDBxanG7bF 11XEucryM2pDXyp3Buf20w z602hM5hcCCiOXC8BZTuQO QzfVOtUSXhFTH2OBKsdBGe M2kiRYTuMS7rdwumKEolGK rfYJNlxAG4NYTtiPJrU4Pw BMVeDXrzCHKdznx2QwSjPf 2loXJgwFpoRJgzw3ssn7zm dEWlCce2BUAaYfLlDdleBD kzz2Bsq3asIERijv9rTPV6 zIDbaRblf4Q8wKInKQZhiR GzwwVdODAePpX6GPugGU2o in17QWRcDOA1rw5gmOXalZ sxhuKiwXTbOOegM1FnLHJs x745MPQdU2TdTEZyf3C1ty FvCoKhVOBaoFQ7peZ7CAHq BYl8yGObkuC0bmEyrTQaQ4 twrL1dLGTcCJ9llhtix7jk MEddECplWRMtlZX8thJ6XE PttBClD4PgmQ6eKIUkURof QLRtyxx7QcMrRv8diNYbqX cyMFxzYmtwYWdlXHBnbmNv bnRccGduZGVjXHBsYWluXH BsYWluXGYwXGZzMjRccWxc bFjgsY3sQiStZyWwAQckHX 5dWDWwA4wibOQxIUSfKWVp Z1jzViWcpJ1wmEgbILjzGi JcZnMyMFxwYXIgSSBoYXZl OPWzohUfwjRkjHcedeK4qX D9USNcTKvjFBVeTUEzrPXh np5pbScpYJUjHW1kBMCsok JeIKguyJueAVgcWBJ8FWEn bWVudHMgbWFkZSBieSByZX CmSDWhrYVcYCRndMkej0Eh e0YyrCU8aK1co3clw5YwUU AtqKQ3EN61elF5yL4xMAPm QP9kRHGsRZ6llWJqpJFxWL Mnn88jhUrialCqZLAomwBb XHBsYWluXGYyXGZzMjhcbG FuZzEwMzNcaGljaFxmMlxk QfEqIXBuCSsjU9vuYuBlSe OhKXytWEP9xZ== Final Diagnosis Comment n9lprJLtCMDanPGsXwNhOG (test code = JgXISye6cwEBTocVFwNnId [id number]) MzNcZnRuYmpcdWMxXGRlZm Wzg2nxw253iFIox6peOSXv UyJ1pAMxJZUbaNDcT618ER TuZAfsd5fxm2YoDGIabSUw i5Y2FASZpxhdzZd7hCxpD4 3jp4E8QdixJ0dnZJKpBXKb B3ZsIY7vNSVnWsi3ULB8ZL A6MSCmRAMmN1BsIP7lNZGm gRZsNXs7e1cpuQplMTTgUL O2e6iwKUgxurTsLS9gig2z wHc2o9icvwZeFSWyUKJljQ IIWGOzN0YvtApeDs9fcFo0 zGhhOwgbCFN3Klc0BP9rmt 57tvp7cGuxSNReubdkLfH7 WOvdGJRntmzkXDd2WQltGU XftENlPHJtsRBcS2BpSJtd ZQ4bssd7MpUwJG0giurdPD wmBBDoXDC0AkQzGBQri3Vl ubblStHkya7vol48IKU8e6 SwvKciCZU7WTG3MdYxJn8o fSSuKGBeEA3gVlXjgUJnUK Hvwa18fImoNIxfkhCghV9z RfXwVAWrbGNsRFLpZA6lhP TwSMAztL2rypwuXXUsTwZv zctzCRSbbAhwxtPgIn1jhJ ihXFS0SJizN5ikiH6sMwT2 LKlqJ8fndG0gCNl2REykzU T8ZMNdsP6yBC1onyatd1fb MXV3HJozVDRwhmU7eaVaFB PebLTqY9NdbG10MkGawBJg Z0JstV4qIWnuOIHocya5Or QfXx1naIHnjYS0VKhhOfvn YWdlXHBnbmNvbnRccGduZG VjXHBsYWluXHBsYWluXGYw HKXhKmQoyCanlLvaiX6bHu KpBvRnUXjrOS3fYXHfM3jx oMFgNBUyPKIlL9ejGiVywA 2kdGnkTWnzlpAxTTZ4aH2e mOqoAOJ0LF8byxD7wF3dWS Ejr7xeWEGfVHA8qMXwHY7h n902qAUmkYRhXPKslYvxCX KejU8bfS3puGJfvbpmfKlt jFiwT1j0IPDtEV7dQT9gnJ lnbmFudCBjZWxscyBhcmUg pRKljfEpQeeqJP9leOGxfM == Clinical Information Clinical Hx: loculated (test code = right pleural effusion 9149395642) with lung nodules. could be infectoius but also could be malignancy Gross Description (test o8wazBAwYXTkeDGuHqJdRD code = 4777806203) OfQMOmp4umWHSpzYChHmRb MzNcZnRuYmpcdWMxXGRlZm Pab4gzv129zJHkh1waAARk AlM4wADrBMFhfSVbR473n8 ipb8mohiRgpNN8CBSiZYG4 UWrzknCmxwS0IIzufAFjIx B1VXdvmlLhYHiubfCdseJn Hcz7NOUoZ672FFN8eOyer2 cjCPZ0MBCaCAMbEkPaVu6d uEVaN586UNShQSPERJWhwH q1TFCzhbGkqzZudAGPj713 Z647q2pvCTHpdtRtuItNdx nvd2gpP742ROUtcDPeiyVy TbPlVWVqqLBvcNU7CKIyIH 0dsvujIMX2PXxxTSVxjoJe RZSyvRKmZ2M7JcVjxJExK5 BwRKpeNZPoxkh7ZqMyAg6i iMAatRN1KLcqv4qcr2cuiK GmVik4RJVwPzMaEausJUex c7Lox3ocHREvjs0hOZM3wH VooQlqh1U9xUKbIQUxdJRd elKdTVFtTsA2YQgeYC0zuz 04NJCrZAP2cm0xzDOoaAwn fnJvgRPtECiyA8WdGKTtv0 09VYUpQ4VvIEWwr1H1scZj IzKcSSStsDA2cdX3NRErGS o8mCTugoY9zgYxnQCtJ6rc bM1nDPbsYY6iiriao3xwSR D7FVpiWKJsdHI9pxchHHav GYFzIbD2joVoyHFaHAWsqG hrJGfth823NDB9HbRlANMf h1DwP9LogMrtZ49sqZwfY8 8tGOZgyEvfkD2xxWgfsT6k ZjBcZnMyNFxxbFxwbGFpbl xmMFxmczIwXGxhbmcxMDMz DQvfJ1tzKpIxYFRgkIxqCU aqe8VqSMJuIDOdIdIqVEVb BCTDHIHRBtZmUFCLN8jTSb XNFL7PDYPYWrSVB1tBFKAP VUlEXHBhciBSZWNlaXZlZC GffdXkpNRwjrK3VHRsI5Ey t6GfEM9qWLKtGpy7lOXqPT BhciBQcmVwYXJlZCAyIHNs sSBbpqYiE8b4y1HeeQ8uwC NwjJUbYWEsf83mNpAhYCPd eLHyq7mns4lwEN0lQZEqKG GfDE9jH14sIZ27JSC5QRfv ZWQpXHBhcn0= Embedded Images (test code = 1405156919) [facility] GLUCOSE (AUTOMATED)2020-06-29 22:21:00 Test Item Value Reference Range Interpretation Comments POCT GLU (test code = 1737882533) 301 mg/dL 70-110 H Lab Interpretation (test code = Abnormal 18481-2) [facility] [id number] 18:22:00 Test Item Value Reference Range Interpretation Comments URINE CULTURE (test No aerobic growth (< code = 630-4) 1000 CFU/mL) [facility] GLUCOSE (AUTOMATED)2020-06-29 17:45:00 Test Item Value Reference Range Interpretation Comments POCT GLU (test code = 3765352311) 303 mg/dL 70-110 H Lab Interpretation (test code = Abnormal 86999-0) [facility] [id number] 14:20:00 Test Item Value Reference Range Interpretation Comments TROPONIN I (test 0.025 ng/mL See_Comment [Automated code = 3896660785) message] The system which generated this result [...] ? Lab Interpretation Normal (test code = 56976-1) [facility] [id number] 14:17:00 Test Item Value Reference Range Interpretation Comments NT-proBNP (test code 1220 pg/mL See_Comment H [Autom ated = 7336903832) message] The system which generated this result transmitted reference range : <=450. The reference range was not used to interpret this result as normal/abnormal . LUZ (test code = LUZ) Biotin has been reported to cause a negative bias, interpret results relative to patient's use of biotin. Lab Interpretation Abnormal (test code = 39669-2) [facility] (51522)2020-06-29 14:08:00 Test Item Value Reference Range Interpretation Comments NA (test code = 135 mmol/L 135-145 0155949871) K (test code = 3.7 mmol/L 3.5-5 0049672469) CL (test code = 93 mmol/L 98-108 L 8610420769) CO2 TOTAL (test code = 31 mmol/L 23-31 5198286371) AGAP (test code = 2-16 8389712273) BUN (test code = 33 mg/dL 7-23 H 6123493493) GLUCOSE (test code = 281 mg/dL 70-110 H 7091292897) CREATININE (test code = 1.46 mg/dL 0.6-1.25 H 7907023557) TOTAL BILI (test code = 1.0 mg/dL 0.1-1.3 6429561895) CALCIUM (test code = 9.1 mg/dL 8.6-10.6 9016187628) T PROTEIN (test code = 7.0 g/dL 6.3-8.2 7690711844) ALBUMIN (test code = 3.9 g/dL 3.5-5 3689017114) ALK PHOS (test code = 65 U/L 34-122 0933961614) ALTv (test code = 9 U/L 5-50 1742-6) AST(SGOT) (test code = 17 U/L 13-40 0109956783) eGFR Calculation mL/min/1.73m2 (Non-) (test code = 2788794027) eGFR Calculation mL/min/1.73m2 () (test code = 5020252517) LUZ (test code = LUZ) Association of [...] tests). Lab Interpretation Abnormal (test code = 82064-5) [facility] 14:08:00 Test Item Value Reference Range Interpretation Comments MAGNESIUM (test code = 5210750721) 1.7 mg/dL 1.7-2.4 Lab Interpretation (test code = Normal 47551-0) [facility]PHOS[facility]2021-[facility] 14:08:00 Test Item Value Reference Range Interpretation Comments PHOSPHORUS (test code = 5562238826) 3.8 mg/dL 2.5-5 Lab Interpretation (test code = Normal 06351-4) [facility] [id number] 14:08:00 Test Item Value Reference Range Interpretation Comments URIC ACID (test code = 4720824865) 12.1 mg/dL 3.6-8 H Lab Interpretation (test code = Abnormal 85165-1) [facility] Center[facility] WITH [id number] 12:42:00 Test Item Value Reference Range Interpretation [...] RDW-SD (test code = 50.2 fL 38.5-51.6 62015-7) RDW-CV (test code = 16.1 % 12.1-15.4 H 788-0) PLT (test code = See_Comment [Automated 777-3) message] The sy stem which generated this result transmitted reference range : 150 - 328 10*3/ ?L. The reference r stephanie was not used to interpret this result as normal/abnormal . MPV (test code = 11.2 fL 9.8-13 81828-6) NRBC/100 WBC (test See_Comment [Automat ed code = 3746679767) message] The system which generated this result transmitted reference range : 0.0 - 10.0 /100 WBCs. The refer ence range was not u sed to interpret th is result as normal/abnormal . NRBC x10^3 (test code <0.01 See_Comment [Auto mated = 5770065295) message] The s ystem which generated this result transmitted reference range : 10*3/?L. The reference range was not used to interpret this result as normal/abnormal . GRAN MAT (NEUT) % 66.0 % (test code = 770-8) IMM GRAN % (test code 0.50 % = 6292759923) LYMPH % (test code = 17.2 % 736-9) MONO % (test code = 13.4 % 5905-5) EOS % (test code = 2.1 % 713-8) BASO % (test code = 0.8 % 706-2) GRAN MAT x10^3(ANC) 5.22 10*3/uL 1.99-6.95 (test code = 3222902860) IMM GRAN x10^3 (test 0.04 10*3/uL 0-0.06 code = 5798045129) LYMPH x10^3 (test code 1.36 10*3/uL 1.09-3.23 = 731-0) MONO x10^3 (test code 1.06 10*3/uL 0.36-1.02 H = 742-7) EOS x10^3 (test code = 0.17 10*3/uL 0.06-0.53 711-2) BASO x10^3 (test code 0.06 10*3/uL 0.01-0.09 = 704-7) Lab Interpretation Abnormal (test code = 58804-0) [facility] GLUCOSE (AUTOMATED)2020-06-29 11:00:00 Test Item Value Reference Range Interpretation Comments POCT GLU (test code = 8681342025) 328 mg/dL 70-110 H Lab Interpretation (test code = Abnormal 90806-4) [facility] GLUCOSE (AUTOMATED)2020-06-29 11:00:00 Test Item Value Reference Range Interpretation Comments POCT GLU (test code = 4317620634) 212 mg/dL 70-110 H Lab Interpretation (test code = Abnormal 69856-2) [id number]00 Test Item Value Reference Range Interpretation Comments TROPONIN I (test 0.021 ng/mL See_Comment [Automated code = 8737787576) message] The system which generated this result [...] ? Lab Interpretation Normal (test code = 86176-1) [facility] [id number] 06:37:00 Test Item Value Reference Range Interpretation Comments LDH (test code = 9032141425) 302 U/L 300-600 Lab Interpretation (test code = Normal 23491-7) [facility]2020[facility]29 03:31:00 Test Item Value Reference Range Interpretation Comments POCT GLU (test code = 3173344539) 339 mg/dL 70-110 H Lab Interpretation (test code = Abnormal 09533-9) [facility] [id number] 00:21:00 Test Item Value Reference Range Interpretation Comments BF SEGS (test code = 0 % 8610854518) BF LYMPHS (test code 62 % = 7306289589) BF REACTIVE LYMPHS % 2 % (test code = 4743498788) MACROPHAGE (test code 32 % = 5944684436) MESOS (test code = 3 % 0544452810) BF EOS (test code = 1 % 9049251834) #CELS CNTD (test code = 3016066760) LUZ (test code = LUZ) Reactive mesos and erythrophages seen, Pigment-laden macrophages observed. Iron stain required to confirm presence of hemosiderin. [facility] DIRECT [id number] 00:19:00 Test Item Value Reference Range Interpretation Comments BF COLOR Yellow (test code = 2023245325) BF WBC Count See_Comment [Automated (test code = message] The sy stem [id number]) which generated this result transmitted reference range : /?L. The refere nce range was not u sed to interpret th is result as normal/abnormal . BF RBC Count See_Comment [Automated (test code = message] The sy stem 3463650487) which generated this result transmitted reference range : /?L. The refere nce range was not u sed to interpret th is result as normal/abnormal . LUZ (test The reference range code = LUZ) and other method performance specifications have not been established for this body fluid. ?The test results must be integrated into the clinical context for interpretation. [facility] CenterAmylase Body [id number] 00:04:00 Test Item Value Reference Range Interpretation Comments AMYLASE BF (test <30 U/L code = 9910807642) UNSPUN BODY Yellow FLUID COLOR (test code = 8455177986) UNSPUN BODY Slightly Cloudy FLUID CLARITY (test code = 1851374509) SPUN BODY FLUID Yellow COLOR (test code = 5840866017) SPUN BODY FLUID Clear CLARITY (test code = 3910730439) Sediment (test The sediment code = volume is <0.6 6683622382) mLs of the total fluid volume of 2mL and its color is white and red. LUZ (test code = Test developed and LUZ) characteristics determined by [facility] Laboratory Services. [facility] CenterGlucose Body [id number] 00:04:00 Test Item Value Reference Range Interpretation Comments GLUCOSE BF (test 291 mg/dL code = 0155195143) UNSPUN BODY Yellow FLUID COLOR (test code = 9289661554) UNSPUN BODY Slightly Cloudy FLUID CLARITY (test code = 3663986086) SPUN BODY FLUID Yellow COLOR (test code = 3355718597) SPUN BODY FLUID Clear CLARITY (test code = 2157880867) Sediment (test The sediment code = volume is <0.5 0311381785) mLs of the total fluid volume of 2mL and its color is white and red. LUZ (test code = Test developed and LUZ) characteristics determined by [facility] Laboratory Services. [facility] CenterTotal Protein Body [id number] 00:04:00 Test Item Value Reference Range Interpretation Comments T.PROT BF (test 3600.0 mg/dL code = 7468319098) UNSPUN BODY Yellow FLUID COLOR (test code = 4766291262) UNSPUN BODY Slightly Cloudy FLUID CLARITY (test code = 8557259820) SPUN BODY FLUID Yellow COLOR (test code = 2443983139) SPUN BODY FLUID Clear CLARITY (test code = 0801385194) Sediment (test The sediment code = volume is <0.9 8346129323) mLs of the total fluid volume of 2mL and its color is white and red. LUZ (test code = Test developed and LUZ) characteristics determined by [facility] Laboratory Services. [facility] [id number] 00:04:00 Test Item Value Reference Range Interpretation Comments LDH BF (test 295 U/L code = 2994422940) UNSPUN BODY Yellow FLUID COLOR (test code = 5200878264) UNSPUN BODY Slightly Cloudy FLUID CLARITY (test code = 9101382046) SPUN BODY FLUID Yellow COLOR (test code = 4442180399) SPUN BODY FLUID Clear CLARITY (test code = 7991795955) Sediment (test The sediment code = volume is <0.6 4260248129) mLs of the total fluid volume of 2mL and its color is white and red. LUZ (test code = Test developed and LUZ) characteristics determined by [facility] Laboratory Services. [facility] CenterPH, Body [id number] 23:49:00 Test Item Value Reference Range Interpretation Comments PH BF (test code = 6999523134) UNSPUN BODY FLUID COLOR Yellow (test code = 3566586356) UNSPUN BODY FLUID Cloudy CLARITY (test code = 2922514696) SPUN BODY FLUID COLOR Yellow (test code = 2336631569) SPUN BODY FLUID CLARITY Clear (test code = 2094698357) Sediment (test code = The se diment volume is 7929406631) <0.1 mLs of the total fluid volume of 1.5mL and its color i s white. [facility]2020-06-28 22:56:00 Test Item Value Reference Range Interpretation Comments POCT GLU (test code = 6069849736) 345 mg/dL 70-110 H Lab Interpretation (test code = Abnormal 22320-5) [facility] CenterTROPONIN [id number] 21:14:00 Test Item Value Reference Range Interpretation Comments TROPONIN I (test 0.016 ng/mL See_Comment [Automated code = 7194458678) message] The system which generated this result [...] ? Lab Interpretation Normal (test code = 34037-6) [facility] CenterVITAMIN B12, [id number] 20:47:00 Test Item Value Reference Range Interpretation Comments VIT B12 (test code = 233 pg/mL 240-930 L 8449957458) LUZ (test code = LUZ) Biotin has been reported to cause a positive bias, interpret results relative to patient's use of biotin. Lab Interpretation (test Abnormal code = 33213-4) [facility] CenterLEGIONELLA URINARY ANTIGEN [id number] 20:03:00 Test Item Value Reference Range Interpretation Comments Legionella Urinary Negative Negative Antigen (test code = 9375970577) LUZ (test code = LUZ) Negative for [...] test. Lab Interpretation (test Normal code = 54389-3) [facility] CenterPNEUMOCOCCAL [id number] 20:03:00 Test Item Value Reference Range Interpretation Comments S. pneumoniae antigen (test code = Negative Negative 5480595335) Lab Interpretation (test code = Normal 27971-8) [facility] CenterIR THORACENTESIS WITH [id number] 19:52:481. ?Successful ultrasound-guided thoracentesis with removal of [...] fluid was removed from the rightpleural space. [facility], Radiant Results Inft User - 11:53 PM [...] was transferred to the floor in stablecondition. [facility] CenterXR CHEST 1 [id number] 19:47:44HISTORY: S/P right thoracentesis. FINDINGS: AP upright view of the chest is obtained and compared with06/27/2020 study. Right-sided thoracentesis is noted. Small amount ofresidual pleural effusion suspected, some of which could be loculated.Cardiomegaly noted. No pneumothorax. CONCLUSIONS: S/P right thor acentesis. Small residual effusion noted whichcould be loculated. No pneumothorax. [facility], Radiant Results Inft User - 06/28/2020 1:48 PM CSTHISTORY: S/P right thoracentesis.FINDINGS: AP upright view of the chest is obtained and compared with06/27/2020 study. Right-sided thoracentesis is noted. Small amount ofresidual pleural effusion suspected, some of which could be loculated.Cardiomegaly noted. No pneumothorax.CONCLUSIONS: S/P right thoracentesis. Small residual effusion noted whichcould be loculated. No pneumothorax.[facility] CenterPROCALCITONIN2021-02-04 18:42:00 Test Item Value Reference Range Interpretation Comments Procalcitonin (test 0.03 ng/mL <0.07 code = 0533174726) LUZ (test code = LUZ) INTERPRETATION OF [...] For further information please refer to:[email or web address] Lab Interpretation Normal (test code = 91244-8) [facility] CenterPO[facility]ATED)2020-06-28 18:27:00 Test Item Value Reference Range Interpretation Comments POCT GLU (test code = 9276760249) 350 mg/dL 70-110 H Lab Interpretation (test code = Abnormal 75371-5) [facility] CenterFOLATE2021-02-04 17:57:00 Test Item Value Reference Range Interpretation Comments FOLATE SER (test code = >20.0 3-20 H Biot in has been 0714016494) reported to cau se a positive bias, interpret resul ts relative to patient's use o f biotin. Lab Interpretation (test Abnormal code = 22499-2) [facility] CenterVITAMIN D, [id number] 17:07:00 Test Item Value Reference Range Interpretation Comments VIT D 25OH (test code = 31 ng/mL 25-80 47706-3) LUZ (test code = LUZ) Deficiency: <20 ng/mLInsufficiency : 20-24 ng/mLOptimal: 25-80 ng/mL Lab Interpretation (test Normal code = 36584-2) [facility] CenterUREA NITROGEN, URINE [id number] 16:53:00 Test Item Value Reference Range Interpretation Comments UREA N UR (test code = 8348378014) 500 mg/dL [facility] CenterFERRITIN [id number] 15:36:00 Test Item Value Reference Range Interpretation Comments FERRITIN (test code = 21.9 ng/mL 18-464 3731557524) LUZ (test code = LUZ) Biotin has been reported to cause a negative bias, interpret results relative to patient's use of biotin. Lab Interpretation (test Normal code = 48405-1) [facility] CenterTHYROID STIMULATING [id number] 15:28:00 Test Item Value Reference Range Interpretation Comments TSH (test code = See_Comment [Automated message] 3087630119) The system Vyu generated this result transmitted ref erence range: 0.45 - 4 .70 mIU/L. The refe rence range was not u sed to interpret this result as normal/abnor mal. Lab Interpretation (test Normal code = 43649-2) [facility] CenterPROTHROMBIN TIME / [id number] 14:32:00 Test Item Value Reference Range Interpretation Comments PROTIME PATIENT (test See_Comment H [Auto mated message] code = 5964-2) The system SMIC generated this result transmitted ref erence range: 12.0 - 1 4.7 Seconds. The reference range was not used to int erpret this result as normal/abnormal . INR (test code = 6301-6) Nor mal INR <1.1; Warfarin Therap eutic range 2.0 to 3. 0 or 2.5 to 3.5, dep ending upon the indica tions. Lab Interpretation (test Abnormal code = 94860-2) [facility] CenterSEDIMENTATION [id number] 14:20:00 Test Item Value Reference Range Interpretation Comments ESR (test code = See_Comment H [Automated message] 9146295530) The system Vyu generated this result transmitted ref erence range: 0 - 10 m m/HR. The reference r stephanie was not used to interpret this result as normal/abnor mal. Lab Interpretation (test Abnormal code = 66247-4) [facility] CenterPO[facility]UCOSE (AUT[facility]ATED)2020-06-28 14:14:00 Test Item Value Reference Range Interpretation Comments POCT GLU (test code = 7610354751) 291 mg/dL 70-110 H Lab Interpretation (test code = Abnormal 43946-1) [facility] CenterGLYCOSYLATED HEMOGLOBIN (A1C)2020-06-28 14:00:00 Test Item Value Reference Range Interpretation Comments HGB A1C (test code = 10.5 % 4-6 H 4548-4) LUZ (test code = LUZ) %A1C (NGSP) Interpretation (ADA)4.8-5.6 ? ? Normal or (Non-Diabetic Range)5.7-6.4 ? ? Increased Risk (Pre-Diabetic)>6.5 ?Diabetes Indicated Lab Interpretation Abnormal (test code = 53404-3) [facility] [id number] 13:38:00 Test Item Value Reference Range Interpretation Comments TROPONIN I (test 0.013 ng/mL See_Comment [Automated code = 1860691581) message] The system which generated this result [...] ? Lab Interpretation Normal (test code = 09585-7) [facility] CenterIRON [id number] 13:36:00 Test Item Value Reference Range Interpretation Comments IRON (test code = 5625123207) 42 ug/dL 50-160 L TIBC (test code = 4100268146) 384 ug/dL 250-410 % FE SAT (test code = 5166841684) 11 % 20-50 L Lab Interpretation (test code = Abnormal 86540-2) [facility] CenterN-TERMINAL [id number] 13:35:00 Test Item Value Reference Range Interpretation Comments NT-proBNP (test code 1280 pg/mL See_Comment H [Autom ated = 0801752351) message] The system which generated this result transmitted reference range : <=450. The reference range was not used to interpret this result as normal/abnormal . LUZ (test code = LUZ) Biotin has been reported to cause a negative bias, interpret results relative to patient's use of biotin. Lab Interpretation Abnormal (test code = 88749-2) [facility] CenterLactate [id number] 13:29:00 Test Item Value Reference Range Interpretation Comments LDH (test code = 6889292506) 341 U/L 300-600 Lab Interpretation (test code = Normal 07990-9) [facility] CenterMAGNESIUM2021-02-04 13:28:00 Test Item Value Reference Range Interpretation Comments MAGNESIUM (test code = 5830700295) 1.6 mg/dL 1.7-2.4 L Lab Interpretation (test code = Abnormal 02365-7) [facility] CenterCOMP. METABOLIC PANEL (89877)2020-06-28 13:27:00 Test Item Value Reference Range Interpretation Comments NA (test code = 138 mmol/L 135-145 4232588185) K (test code = 4.1 mmol/L 3.5-5 9018584790) CL (test code = 97 mmol/L 98-108 L 1617864193) CO2 TOTAL (test code = 29 mmol/L 23-31 7200580857) AGAP (test code = 2-16 2909917471) BUN (test code = 20 mg/dL 7-23 8066442256) GLUCOSE (test code = 251 mg/dL 70-110 H 1878432384) CREATININE (test code = 0.86 mg/dL 0.6-1.25 0494235896) TOTAL BILI (test code = 0.8 mg/dL 0.1-1.1 9547273192) CALCIUM (test code = 9.5 mg/dL 8.6-10.6 0350724078) T PROTEIN (test code = 7.0 g/dL 6.3-8.2 0653298845) ALBUMIN (test code = 4.1 g/dL 3.5-5 1472622855) ALK PHOS (test code = 75 U/L 34-122 7228371465) ALTv (test code = 11 U/L 5-50 1742-6) AST(SGOT) (test code = 15 U/L 13-40 6336514584) eGFR Calculation mL/min/1.73m2 (Non-) (test code = 8819565182) eGFR Calculation mL/min/1.73m2 () (test code = 9910097154) LUZ (test code = LUZ) Association of [...] tests). Lab Interpretation Abnormal (test code = 68835-7) [facility] CenterPHOSPHORUS2021-02-04 13:27:00 Test Item Value Reference Range Interpretation Comments PHOSPHORUS (test code = 6245444480) 3.6 mg/dL 2.5-5 Lab Interpretation (test code = Normal 76021-0) [facility] CenterURIC [id number] 13:27:00 Test Item Value Reference Range Interpretation Comments URIC ACID (test code = 4912070457) 9.3 mg/dL 3.6-8 H Lab Interpretation (test code = Abnormal 13587-4) [facility] CenterLIPID PANEL (09522)(TOTAL CHOLESTEROL, TRIGLYCERIDES, HDL)2020-06-28 13:23:00 Test Item Value Reference Range Interpretation Comments CHOL (test code = 100 mg/dL 120-200 L 4868783014) HDL (test code = 25 mg/dL >40 L 9448234877) HDLC RATIO (test code = See_Comment [Au tomated message] 0114019948) The system Vyu generated this result transmit beatrice reference range : <=5.0. The refe rence range was not u sed to interpret th is result as normal/abnormal . TRIG (test code = 245 mg/dL 30-170 H 7581064616) LDL CHOL (test code = 26 mg/dL See_Comment [Auto mated message] 79442-8) The system Vyu generated this result transmit beatrice reference range : <=160. The refe rence range was not u sed to interpret th is result as normal/abnormal . VLDL (test code = 49 mg/dL 5-60 7740603756) Lab Interpretation (test Abnormal code = 52921-1) [facility] CenterMAGNESIUM2021-02-04 13:23:00 Test Item Value Reference Range Interpretation Comments MAGNESIUM (test code = 4451213665) 1.7 mg/dL 1.7-2.4 Lab Interpretation (test code = Normal 63495-4) [facility] CenterPHOSPHORUS2021-02-04 13:23:00 Test Item Value Reference Range Interpretation Comments PHOSPHORUS (test code = 1979127375) 3.7 mg/dL 2.5-5 Lab Interpretation (test code = Normal 12465-9) [facility] CenterURIC [id number] 13:22:00 Test Item Value Reference Range Interpretation Comments URIC ACID (test code = 6379891552) 9.6 mg/dL 3.6-8 H Lab Interpretation (test code = Abnormal 88804-5) [facility] CenterPROTEIN CREAT RATIO URINE [id number] 13:17:00 Test Item Value Reference Range Interpretation Comments T. PROT U (test code 11 mg/dL = 2888-6) CREAT U (test code = 51.4 mg/dL 6503370292) Protein/Creatinine 0.0-2.0 Ratio Urine (test code = 3972740107) LUZ (test code = LUZ) Random Urine Total Protein Reference Ranges Random Specimen: ? Less than 10 mg/dLFirst Morning Specimen: ? ?Less than 20 mg/dL ? [facility] CenterSODIUM, URINE [id number] 13:13:00 Test Item Value Reference Range Interpretation Comments NA URINE (test code = 6942118320) 113 mmol/L [facility] CenterADC / LCC - DRUG SCREEN [id number] 13:06:00 Test Item Value Reference Range Interpretation Comments BENZO U (test code = Presumptive Positive Negative A 2646593241) KADIE U (test code = Negative Negative 1032236681) AMPHET (test code = Negative Negative 5083744619) THC (test code = Negative Negative 8108740818) METHADONE (test code = Negative Negative 9164196072) Meth U (test code = Negative Negative 5809569725) OPIATES (test code = Negative Negative 1635197031) Cocaine Metabolite (test Negative Negative code = 6927062372) PROPOXY (test code = Negative Negative 5064216462) Tric U (test code = Negative Negative 1673240113) PCP (test code = Negative Negative 8860182227) OXYCOD (test code = Negative Negative 0743419574) LUZ (test code = LUZ) Urine Drug [...] testing). Lab Interpretation (test Abnormal code = 50315-3) [facility] WITH [id number] 12:45:00 Test Item Value Reference Range Interpretation Comments WBC (test code = See_Comment [Automated 1690-2) message] The sy stem which generated this result transmitted reference range : 4.20 - 10.70 10*3/?L. The reference range was not used to interpret this result as normal/abnormal . RBC (test code = See_Comment L [Automated 129-8) message] The sy stem which generated this [...] RDW-SD (test code = 50.2 fL 38.5-51.6 69295-4) RDW-CV (test code = 16.0 % 12.1-15.4 H 788-0) PLT (test code = See_Comment [Automated 777-3) message] The sy stem which generated this result transmitted reference range : 150 - 328 10*3/ ?L. The reference r stephanie was not used to interpret this result as normal/abnormal . MPV (test code = 11.0 fL 9.8-13 51080-4) NRBC/100 WBC (test See_Comment [Automat ed code = 8712059786) message] The system which generated this result transmitted reference range : 0.0 - 10.0 /100 WBCs. The refer ence range was not u sed to interpret th is result as normal/abnormal . NRBC x10^3 (test code <0.01 See_Comment [Auto mated = 5311262865) message] The s ystem which generated this result transmitted reference range : 10*3/?L. The reference range was not used to interpret this result as normal/abnormal . GRAN MAT (NEUT) % 63.7 % (test code = 770-8) IMM GRAN % (test code 0.50 % = 2739428071) LYMPH % (test code = 21.7 % 736-9) MONO % (test code = 10.2 % 5905-5) EOS % (test code = 2.9 % 713-8) BASO % (test code = 1.0 % 706-2) GRAN MAT x10^3(ANC) 4.02 10*3/uL 1.99-6.95 (test code = 6236328939) IMM GRAN x10^3 (test 0.03 10*3/uL 0-0.06 code = 4054496552) LYMPH x10^3 (test code 1.37 10*3/uL 1.09-3.23 = 731-0) MONO x10^3 (test code 0.64 10*3/uL 0.36-1.02 = 742-7) EOS x10^3 (test code = 0.18 10*3/uL 0.06-0.53 711-2) BASO x10^3 (test code 0.06 10*3/uL 0.01-0.09 = 704-7) Lab Interpretation Abnormal (test code = 87381-1) [facility] CenterCT CHEST PULMONARY [id number] 04:06:45 No acute pulmonary embolism. Moderate volume [...] right heart dysfunction.Preliminary Report Dictated by Resident: Nomr Salguero MD., have reviewed this study and agree with the abovereport.[facility] CenterXR CHEST 1 [id number] 01:14:52 Small to moderate right pleural effusion [...] with adjacent atelectasis orinfiltrate.RL: [id number] of report [facility]Har[facility] CenterTROPONIN I 2020-06-28 01:06:00 Test Item Value Reference Range Interpretation Comments TROPONIN I (test 0.012 ng/mL See_Comment [Automated code = 0541736033) message] The system which generated this result transmitted reference range : <=0.034. The reference range was not used to interpret this result as normal/abnormal . ULZ (test code = Equal or Less than [...] ? Lab Interpretation Normal (test code = 83302-2) [facility] CenterPROTHROMBIN TIME / [id number] 01:03:00 Test Item Value Reference Range Interpretation [...] tions. Lab Interpretation (test Abnormal code = 34128-5) [facility] CenterN-TERMINAL [id number] 01:03:00 Test Item Value Reference Range Interpretation Comments NT-proBNP (test code 1200 pg/mL See_Comment H [Autom ated = 9605688071) message] The system which generated this result transmitted reference range : <=450. The reference range was not used to interpret this result as normal/abnormal . LUZ (test code = LUZ) Biotin has been reported to cause a negative bias, interpret results relative to patient's use of biotin. Lab Interpretation Abnormal (test code = 63345-2) [facility] CenteraPTT2021-02-04 00:59:00 Test Item Value Reference Range Interpretation Comments APTT Patient (test See_Comment [Automat ed code = 3173-2) message] The system which generated this result transmitted reference range : 23 - 38 Seconds . The reference range was not used to interpr et this result as normal/abnormal . LUZ (test code = LUZ) The [facility] patient population mean normal value for aPTT is 30 seconds. Lab Interpretation Normal (test code = 11721-1) [facility]. METABOLIC PANEL (40317)2020-06-28 00:54:00 Test Item Value Reference Range Interpretation Comments NA (test code = 136 mmol/L 135-145 9531786774) K (test code = 4.2 mmol/L 3.5-5 9760016961) CL (test code = 98 mmol/L 98-108 7260538390) CO2 TOTAL (test code = 26 mmol/L 23-31 9020833531) AGAP (test code = 2-16 5011121591) BUN (test code = 19 mg/dL 7-23 5632878983) GLUCOSE (test code = 284 mg/dL 70-110 H 2178826880) CREATININE (test code = 1.03 mg/dL 0.6-1.25 5018970544) TOTAL BILI (test code = 0.8 mg/dL 0.1-1.6 8319513630) CALCIUM (test code = 9.7 mg/dL 8.6-10.6 4144512114) T PROTEIN (test code = 7.6 g/dL 6.3-8.2 2822246121) ALBUMIN (test code = 4.4 g/dL 3.5-5 8182678542) ALK PHOS (test code = 88 U/L 34-122 6162538245) ALTv (test code = 13 U/L 5-50 1742-6) AST(SGOT) (test code = 17 U/L 13-40 5606103528) eGFR Calculation mL/min/1.73m2 (Non-) (test code = 8018827246) eGFR Calculation mL/min/1.73m2 () (test code = 6797490797) LUZ (test code = LUZ) Association of [...] tests). Lab Interpretation Abnormal (test code = 05598-4) [facility] CenterLIPASE, [id number] 00:53:00 Test Item Value Reference Range Interpretation Comments LIPASE (test code = 2520970036) 58 U/L 0-220 Lab Interpretation (test code = Normal 18088-0) [facility] CenterCOVID-19 (ID NOW RAPID TESTING)2020-06-28 00:53:00 Test Item Value Reference Range Interpretation Comments SARS-CoV-2 Rapid ID NOW Not Detected Not Detected (test code = 82194-9) LUZ (test code = LUZ) ID NOW COVID-19 Assay is an isothermal nucleic acid amplification test intended for the qualitative detection of nucleic acid from SARS-CoV-2 viral RNA in nasopharyngeal (GEOINT ANALYST) specimens. It is used under Emergency Use [...] indicated. Lab Interpretation Normal (test code = 52978-4) [facility] WITH [id number] 00:35:00 Test Item Value Reference Range Interpretation [...] RDW-SD (test code = 50.7 fL 38.5-51.6 99894-9) RDW-CV (test code = 16.2 % 12.1-15.4 H 788-0) PLT (test code = See_Comment [Automated 777-3) message] The sy stem which generated this result transmitted reference range : 150 - 328 10*3/ ?L. The reference r stephanie was not used to interpret this result as normal/abnormal . MPV (test code = 11.0 fL 9.8-13 67031-8) NRBC/100 WBC (test See_Comment [Automat ed code = 6334642115) message] The system which generated this result transmitted reference range : 0.0 - 10.0 /100 WBCs. The refer ence range was not u sed to interpret th is result as normal/abnormal . NRBC x10^3 (test code <0.01 See_Comment [Auto mated = 5960484531) message] The s ystem which generated this result transmitted reference range : 10*3/?L. The reference range was not used to interpret this result as normal/abnormal . GRAN MAT (NEUT) % 61.2 % (test code = 770-8) IMM GRAN % (test code 0.50 % = 0087732445) LYMPH % (test code = 23.9 % 736-9) MONO % (test code = 10.4 % 5905-5) EOS % (test code = 2.9 % 713-8) BASO % (test code = 1.1 % 706-2) GRAN MAT x10^3(ANC) 3.99 10*3/uL 1.99-6.95 (test code = 2234992780) IMM GRAN x10^3 (test 0.03 10*3/uL 0-0.06 code = 2216451840) LYMPH x10^3 (test code 1.56 10*3/uL 1.09-3.23 = 731-0) MONO x10^3 (test code 0.68 10*3/uL 0.36-1.02 = 742-7) EOS x10^3 (test code = 0.19 10*3/uL 0.06-0.53 711-2) BASO x10^3 (test code 0.07 10*3/uL 0.01-0.09 = 704-7) Lab Interpretation Abnormal (test code = 69391-5) [facility]
[2023-02-22 20:33] LABS: Absolute Lymphocytes (CBC) 1.3 K/uL (0.7-4.9); Hematocrit 27.7 % (39.6-49.0); Lymphocytes % 22.8 % (15.3-44.8); MCV 78.6 fL (80-100); MPV 9.1 fL (7.6-11.3); Platelets 252 thou/uL (152-406); RBC Red Blood Cell Count 3.53 M/uL (4.33-5.43)
[2023-02-22 20:38] LABS: Protime INR 2.23
[2023-02-22 20:51] LABS: Magnesium 2.8 mg/dL (1.6-2.4); Potassium 3.9 mEq/L (3.5-5.1); Troponin High Sensitivity 21.9 pg/mL (<58.9)
--- NOTE | 2023-02-22 21:08 | RAD REPORT ---
EXAM DESCRIPTION: RADChest Single View02/22/2023 8:48 pm CLINICAL HISTORY: edema COMPARISON: Chest Pa And Lat (2 Views) dated 08/15/2022; Chest Single View dated 08/14/2022; Abdomen 1 View (KUB) dated 05/20/2022; Chest Single View dated 05/07/2022 TECHNIQUE: Portable AP view of the chest. FINDINGS: Stable right small to moderate pleural effusion with underlying airspace opacification. No pneumothorax. The cardiomediastinal contours are unchanged, with cardiomegaly and sequelae of prior CABG. IMPRESSION: Stable findings, as above.
--- NOTE | 2023-02-22 21:11 | RAD REPORT ---
EXAM DESCRIPTION: US - Extrem Venous W Compress Jarad - 02/22/2023 8:41 pm CLINICAL HISTORY: Swelling COMPARISON: None. TECHNIQUE: Real-time sonographic evaluation of the bilateral lower extremity deep venous systems was performed. FINDINGS: Normal compressibility, flow augmentation, phasic flow and spontaneous flow is identified in both the left and right lower extremity deep venous systems. No intraluminal filling defects seen. IMPRESSION: No evidence of DVT in either lower extremity.
[2023-02-22] MEDS ORDERED: FUROSEMIDE 20 MG/ 2ML VIAL ONE (22:24)
[2023-02-23] MEDS ORDERED: LORazepam 2 MG/ML VIAL ONE (01:14)
[2023-02-23] MEDS ORDERED: KETOROLAC 30 MG/ML INJ ONE (01:32)
--- NOTE | 2023-02-23 02:54 | EDPHYS ---
Physician Documentation [facility] Name: Vasu Carrera Age: 87 yrs Sex: Male : 1935 Arrival Date: 02/22/2023 Time: 19:48 Bed 14 Private MD: ED Physician Sree Mercado HPI: 02/22 20:20 This 87 yrs old Male presents to ER via EMS with complaints of Feet Swelling. cp 20:20 The patient presents with pain, swelling. The complaints affect the The complaints cp affect the right foot and left foot and left lower leg and right lower leg. 20:20 Onset: The symptoms/episode began/occurred gradually, over past several days. cp 20:20 Associated signs and symptoms: Pertinent positives: pain all over. Severity of cp symptoms: in the emergency department the symptoms are unchanged, despite EMS interventions. 02/23 01:45 reports patient c/o pain after eating recently. cp Historical: - Allergies: 02/22 20:05 Morphine; me1 20:05 Sulfa (Sulfonamide Antibiotics); me1 - Home Meds: 02/23 03:23 digoxin 125 mcg (0.125 mg) Oral tablet daily [Active]; escitalopram oxalate 10 mg oral lg3 tablet daily [Active]; Farxiga 10 mg oral tablet daily [Active]; isosorbide mononitrate 60 mg Oral Tablet, Extended Release 24 hr daily [Active]; levothyroxine 50 mcg tablet daily [Active]; metoprolol tartrate 25 mg Oral tablet 2 times per day [Active]; rosuvastatin 5 mg oral tablet daily [Active]; pantoprazole 40 mg oral tablet, delayed release (enteric coated) every morning [Active]; ropinirole 0.5 mg oral tablet every day at bedtime [Active]; torsemide 20 mg oral tablet daily [Active]; tramadol 50 mg Oral tablet daily [Active]; trazodone 100 mg Oral tablet every day at bedtime [Active]; tamsulosin 0.4 mg oral capsule every day at bedtime [Active]; Xarelto 15 mg oral tablet every evening [Active]; - PMHx: 02/22 20:05 Atrial fibrillation; diabetes mellitus; Congestive heart failure; Home O2 PRN; Hernia; me1 Hypertensive disorder; 02/23 03:23 Dementia; lg3 - PSHx: 02/22 20:05 hip; open heart SX; me1 - Immunization history:: Adult Immunizations unknown. - Social history:: Smoking status: unknown. ROS: 20:25 Constitutional: Positive for pain all over, Negative for body aches, chills, fever, cp poor PO intake, 20:25 Eyes: Negative for injury, pain, redness, and discharge, cp 20:25 Cardiovascular: Positive for edema, Negative for palpitations, 20:25 Respiratory: Negative for cough, shortness of breath, wheezing, 20:25 Abdomen/GI: Negative for vomiting, diarrhea, constipation, 20:25 Skin: Negative for cellulitis, rash, 20:25 Neuro: Negative for altered mental status, dizziness, headache, syncope, 20:25 All other systems are negative, Exam: 20:10 ECG was reviewed by the Attending Physician. cp 20:30 Constitutional: The patient appears in no acute distress, alert, awake, cp non-diaphoretic, non-toxic, well developed, well nourished, 20:30 Head/Face: Normocephalic, atraumatic. cp 20:30 Eyes: Periorbital structures: appear normal, Conjunctiva: normal, no exudate, no injection, Sclera: no appreciated abnormality, Lids and lashes: appear normal, bilaterally, 20:30 ENT: External ear(s): are unremarkable, Nose: is normal, Mouth: Lips: moist, Oral mucosa: pink and intact, moist, Posterior pharynx: is normal, airway is patent, no erythema, no exudate, 20:30 Neck: ROM/movement: is normal, is supple, without pain, no range of motions limitations, 20:30 Chest/axilla: Inspection: normal, Palpation: is normal, no crepitus, no tenderness, 20:30 Cardiovascular: Rate: bradycardic, Rhythm: irregular, Edema: pedal edema, that is mild, ankle edema, that is mild, JVD: is not appreciated, 20:30 Respiratory: the patient does not display signs of respiratory distress, Respirations: normal, no use of accessory muscles, no retractions, labored breathing, is not present, Breath sounds: are clear throughout, no decreased breath sounds, no stridor, no wheezing, 20:30 Abdomen/GI: Inspection: abdomen appears normal, 20:30 Back: pain, is absent, ROM is normal, 20:30 Skin: cellulitis, is not appreciated, no rash present. 20:30 Neuro: Orientation: to person, situation, Mentation: able to follow commands, Motor: moves all fours, strength is normal, 02/23 01:45 Abdomen/GI: Bowel sounds: active, all quadrants, Palpation: soft, in all quadrants, mild abdominal tenderness, in the right upper quadrant, rebound tenderness, is not appreciated, involuntary guarding, is not appreciated, Vital Signs: 02/22 20:00 BP 131 / 68; Pulse 58; Resp 9; Temp 98.8(O); Pulse Ox 100% on 2 lpm NC; me1 21:00 BP 129 / 79; Pulse 59; Resp 17; Pulse Ox 99% on R/A; me1 22:00 BP 117 / 70; Pulse 59; Resp 17; Pulse Ox 99% on R/A; me1 02/23 00:16 BP 110 / 61; Pulse 101; Resp 16; Pulse Ox 98% on R/A; me1 01:40 BP 121 / 70; Pulse 64; Resp 19 S; Pulse Ox 98% on 2 lpm NC; lg3 03:06 BP 117 / 65; Pulse 66; Resp 16 S; Pulse Ox 98% on 2 lpm NC; lg3 MDM: 02/22 20:13 Patient medically screened. 23:00 Differential diagnosis: chf, acute UT, pulmonary edema, acute kidney failure. 02/23 02:55 Data reviewed: vital signs, nurses notes, lab test result(s), EKG, radiologic studies, CT scan, plain films, ultrasound, I have discussed the patient's presentation/case with the attending Emergency Department Physician; and as a result, I will admit patient. 02:55 I considered the following discharge prescriptions or medication management in the emergency department Medications were administered in the Emergency Department. See MAR. Independent interpretation of the following test(s) in the Emergency Department EKG: See my EKG interpretation above. Historians other than the Patient: Spouse/Significant Other: assists with HPI. Care significantly affected by the following chronic conditions: Diabetes, Congestive Heart Failure. 02/22 20:13 Order name: Basic Metabolic Panel; Complete Time: 22:02 02/22 22:03 Interpretation: Normal except: GLUC 227; BUN 43; CRE 1.81; GFR 36; CA 8.4. cp 02/22 20:13 Order name: CBC with Diff; Complete Time: 22:02 cp 02/22 22:03 Interpretation: Normal except: RBC 3.53; HGB 8.7; HCT 27.7; MCV 78.6; MCH 24.7; MCHC cp 31.4; RDW 18.9; MN% 13.7. 02/22 20:13 Order name: Magnesium; Complete Time: 22:02 cp 02/22 20:13 Order name: NT PRO-BNP; Complete Time: 22:02 cp 02/22 22:03 Interpretation: Abnormal: NT PRO-BNP 2291. cp 02/22 20:13 Order name: PT-INR; Complete Time: 22:02 cp 02/22 20:13 Order name: Troponin HS; Complete Time: 22:02 cp 02/23 02:07 Order name: LFT's; Complete Time: 03:07 cp 02/23 02:07 Order name: Lipase; Complete Time: 03:07 cp 02/23 15:23 Order name: Glucose, Ancillary Testing; Complete Time: 00:16 EDIA 02/22 20:13 Order name: XRAY Chest (1 view); Complete Time: 22:02 cp 02/22 20:13 Order name: US Extremity Venous W Compression Jarad; Complete Time: 22:02 cp 02/22 22:04 Order name: CT Chest Wo Con cp 02/22 23:55 Order name: CT Abd/Pelvis - Without Contrast cp 02/23 01:47 Order name: US Abdomen Limited cp 02/22 20:13 Order name: EKG; Complete Time: 20:13 cp 02/23 03:24 Order name: CONS Physician Consult EDIA 02/22 20:13 Order name: Cardiac monitoring; Complete Time: 20:13 cp 02/22 20:13 Order name: EKG - Nurse/Tech; Complete Time: 20:13 cp 02/22 20:13 Order name: IV Saline Lock; Complete Time: 20:18 cp 02/22 20:13 Order name: Labs collected and sent; Complete Time: 20:18 cp 02/22 20:13 Order name: O2 Per Protocol; Complete Time: 20:18 cp 02/22 20:13 Order name: O2 Sat Monitoring; Complete Time: 20:18 cp EC/01 20:10 Rate is 61 beats/min. Rhythm is irregular. QRS interval is normal. QT interval is cp normal. T waves are Inverted in lead III. Interpreted by me. Reviewed by me. Administered Medications: 22:15 Drug: Furosemide IVP 20 mg IVP once; give over 2 minutes Route: IVP; Site: left me1 antecubital; 02/23 00:16 Follow up: Response: No adverse reaction me1 01:19 Drug: Ativan IVP 0.5 mg IVP once Route: IVP; Site: left antecubital; lg3 03:16 Follow up: Response: No adverse reaction; No change in condition; RASS: Restless (+1) lg3 01:31 Drug: Ketorolac IVP 15 mg IVP once Route: IVP; Site: left antecubital; lg3 03:16 Follow up: Response: No adverse reaction lg3 03:04 Drug: Rocephin IV 1 grams IV at calculated rate once; Given slow IV push per pharmacy lg3 instructions Route: IV; Rate: calculated rate; Site: left antecubital; 03:05 Follow up: Response: No adverse reaction; IV Status: Completed infusion; IV Intake: [id number] 03:05 Drug: morphine IVP or IV 4 mg IVP once over 4 mins Route: IVP; Infused Over: 4 mins; lg3 Site: left antecubital; 03:15 Follow up: Response: No adverse reaction; Marked relief of symptoms; Pain is decreased lg3 Disposition: 06:23 Co-signature as Attending Physician, Sree Mercado MD I reviewed the patient's care rt provided by the Advanced Practice Provider and agree with the diagnosis and treatment plan. Disposition Summary: 02/23/23 02:54 Hospitalization Ordered Notes: Hospitalization Status: Inpatient Admission cp Provider: Sean Vazquez cp Condition: Stable cp Problem: new cp Symptoms: have improved cp Bed/Room Type: Standard cp Location: Telemetry/MedSurg (Inpatient)(02/23/23 15:57) bd Room Assignment: 410(02/23/23 15:57) bd Diagnosis - Cholecystitis, unspecified cp - Unspecified combined systolic (congestive) and diastolic (congestive) heart failure cp - Pleural effusion, not elsewhere classified cp Forms: - Medication Reconciliation Form cp - SBAR form cp - Leadership Thank You Letter cp Signatures: Dispatcher [employer] EDMS Dirrim, Deidra bd Page, Chet, PA PA cp Lelo Mayen, RN RN cg Sherron Mcdonough RN RN lg3 Sree Mercado MD MD rt Genie Cash RN RN me1 Corrections: (The following items were deleted from the chart) 03: 02:54 Telemetry/MedSurg (Inpatient) cp cg 03: 02:54 cp cg 15:57 03:31 [facility] ER HOLD cg bd 15: 03:31 ERHOLD- cg bd 02/24 00:07 10 20:20 The complaints affect the cp cp
--- NOTE | 2023-02-23 02:54 | ER ---
Nurse's Notes [facility] Name: Vasu Carrera Age: 87 yrs Sex: Male : 1935 Arrival Date: 02/22/2023 Time: 19:48 Bed 14 Private MD: Diagnosis: Cholecystitis, unspecified;Unspecified combined systolic (congestive) and diastolic (congestive) heart failure;Pleural effusion, not elsewhere classified Presentation: 02/22 20:00 Chief complaint: EMS states: toned out to house for BLE edema and pain that has me1 worsened over the past few days. Coronavirus screen: Vaccine status: Patient reports receiving the 2nd dose of the covid vaccine. Ebola Screen: No symptoms or risks identified at this time. Initial Sepsis Screen:. 20:00 Method Of Arrival: EMS: [facility] nd1 20:04 Initial Sepsis Screen: Does the patient meet any 2 criteria? No. Patient's initial me1 sepsis screen is negative. Does the patient have a suspected source of infection? No. Patient's initial sepsis screen is negative. Risk Assessment: Do you want to hurt yourself or someone else?. Onset of symptoms is unknown. 20:04 Acuity: WILBERT 3 me1 Triage Assessment: 20:05 General: Appears comfortable, well groomed, well developed, well nourished, Behavior is me1 calm, cooperative, appropriate for age. Pain: Denies pain. Neuro: Level of Consciousness is awake, alert, obeys commands, Oriented to person, situation, hx: dementia. Cardiovascular: Capillary refill < 3 seconds Patient's skin is warm and dry. Cardiovascular: +3 pitting edema to BLE. Respiratory: Airway is patent Respiratory effort is even, unlabored, Respiratory pattern is regular, symmetrical. Historical: - Allergies: 20:05 Morphine; me1 20:05 Sulfa (Sulfonamide Antibiotics); me1 - Home Meds: 02/23 03:23 digoxin 125 mcg (0.125 mg) Oral tablet daily [Active]; escitalopram oxalate 10 mg oral lg3 tablet daily [Active]; Farxiga 10 mg oral tablet daily [Active]; isosorbide mononitrate 60 mg Oral Tablet, Extended Release 24 hr daily [Active]; levothyroxine 50 mcg tablet daily [Active]; metoprolol tartrate 25 mg Oral tablet 2 times per day [Active]; rosuvastatin 5 mg oral tablet daily [Active]; pantoprazole 40 mg oral tablet, delayed release (enteric coated) every morning [Active]; ropinirole 0.5 mg oral tablet every day at bedtime [Active]; torsemide 20 mg oral tablet daily [Active]; tramadol 50 mg Oral tablet daily [Active]; trazodone 100 mg Oral tablet every day at bedtime [Active]; tamsulosin 0.4 mg oral capsule every day at bedtime [Active]; Xarelto 15 mg oral tablet every evening [Active]; - PMHx: 02/22 20:05 Atrial fibrillation; diabetes mellitus; Congestive heart failure; Home O2 PRN; Hernia; me1 Hypertensive disorder; 02/23 03:23 Dementia; lg3 - PSHx: 02/22 20:05 hip; open heart SX; me1 - Immunization history:: Adult Immunizations unknown. - Social history:: Smoking status: unknown. Screenin:08 [facility] ED Fall Risk Assessment (Adult) History of falling in the last 3 months, me1 including since admission No falls in past 3 months (0 pts) Confusion or Disorientation No (0 pts) Intoxicated or Sedated No (0 pts) Impaired Gait Yes (1 pt) Mobility Assist Device Used Yes (1 pt) Altered Elimination Yes (1 pt) Score/Fall Risk Level 0 - 2 = Low Risk. Abuse screen: Denies threats or abuse. Nutritional screening: No deficits noted. Tuberculosis screening: No symptoms or risk factors identified. Assessment: 20:08 General: See triage assessment. . me1 02/23 00:10 General: Appears in no apparent distress. comfortable, Behavior is calm, cooperative. lg3 Pain: Complains of pain in right leg and left leg Pain currently is 4 out of 10 on a pain scale. Quality of pain is described as crampy, squeezing, Is intermittent, episodic. Neuro: No deficits noted. [place] Agitation-Sedation Scale (RASS): 0 - Alert and Calm Level of Consciousness is awake, alert, obeys commands, Oriented to person, place, time, situation. Cardiovascular: No deficits noted. Denies chest pain, Capillary refill < 3 seconds Clubbing of nail beds is absent JVD is absent Patient's skin is warm and dry. Respiratory: No deficits noted. Reports shortness of breath on exertion Airway is patent Respiratory effort is even, unlabored, Respiratory pattern is regular, symmetrical, the patient has mild shortness of breath. GI: No deficits noted. No signs and/or symptoms were reported involving the gastrointestinal system. Abdomen is round non-distended. : No deficits noted. No signs and/or symptoms were reported regarding the genitourinary system. EENT: No deficits noted. No signs and/or symptoms were reported regarding the EENT system. Derm: No deficits noted. No signs and/or symptoms reported regarding the dermatologic system. Skin is intact, is healthy with good turgor, Skin is dry, Skin is normal, Skin temperature is warm. Musculoskeletal: Circulation, motion, and sensation intact. Range of motion: intact in all extremities, Swelling present in right leg and left leg. 01:00 Neuro: [place] Agitation-Sedation Scale (RASS): +2 Agitated Level of Consciousness is lg3 awake, confused, Oriented to person, states pt becomes confused, agitated and restless at night. recent diagnosis of sun downers. 03:05 Reassessment: Patient appears in no apparent distress at this time. No changes from lg3 previously documented assessment. Patient and/or family updated on plan of care and expected duration. Pain level reassessed. Pain: Complains of pain in right leg and left leg Pain currently is 9 out of 10 on a pain scale. Noted to be grimacing, guarding, moaning, restless. Vital Signs: 02/22 20:00 BP 131 / 68; Pulse 58; Resp 9; Temp 98.8(O); Pulse Ox 100% on 2 lpm NC; me1 21:00 BP 129 / 79; Pulse 59; Resp 17; Pulse Ox 99% on R/A; me1 22:00 BP 117 / 70; Pulse 59; Resp 17; Pulse Ox 99% on R/A; me1 02/23 00:16 BP 110 / 61; Pulse 101; Resp 16; Pulse Ox 98% on R/A; me1 01:40 BP 121 / 70; Pulse 64; Resp 19 S; Pulse Ox 98% on 2 lpm NC; lg3 03:06 BP 117 / 65; Pulse 66; Resp 16 S; Pulse Ox 98% on 2 lpm NC; lg3 ED Course: 02/22 19:53 Patient arrived in ED. lg3 20:00 Genie Cash, RN is Primary Nurse. me1 20:05 Triage completed. me1 20:05 Arm band placed on Patient placed in an exam room. me1 20:08 Patient has correct armband on for positive identification. Bed in low position. Call me1 light in reach. Side rails up X2. Provided Education on: POC. Verbalized understanding.. 20:08 No provider procedures requiring assistance completed. Maintain EMS IV. Dressing me1 intact. Good blood return noted. Site clean \T\ dry. Gauge \T\ site: 20 gauge LAC. 20:12 Chet Swan PA is PHCP. cp 20:12 Sree Mercado MD is Attending Physician. cp 20:18 Basic Metabolic Panel Sent. me1 20:18 CBC with Diff Sent. me1 20:18 Magnesium Sent. me1 20:18 NT PRO-BNP Sent. me1 20:18 PT-INR Sent. me1 20:18 Troponin HS Sent. me1 20:43 US Extremity Venous W Compression Jarad In Process Unspecified. EDMS 20:50 XRAY Chest (1 view) In Process Unspecified. EDMS 23:10 CT Chest Wo Con In Process Unspecified. EDMS 02/23 00:07 Report received from JULY Prescott. lg3 00:10 Client placed on continuous cardiac and pulse oximetry monitoring. NIBP monitoring lg3 applied. nuclear monitoring technician on. Door closed. Noise minimized. Warm blanket given. Family accompanied patient. 00:10 Oxygen administration via nasal cannula \T\ 2L/min. lg3 01:21 CT Abd/Pelvis - Without Contrast In Process Unspecified. EDMS 02:10 US Abdomen Limited In Process Unspecified. EDMS 02:53 Sean Vazquez MD is Hospitalizing Provider. cp 06:14 Patient admitted, IV remains in place. lg3 Administered Medications: 02/22 22:15 Drug: Furosemide IVP 20 mg IVP once; give over 2 minutes Route: IVP; Site: left me1 antecubital; 02/23 00:16 Follow up: Response: No adverse reaction me1 01:19 Drug: Ativan IVP 0.5 mg IVP once Route: IVP; Site: left antecubital; lg3 03:16 Follow up: Response: No adverse reaction; No change in condition; RASS: Restless (+1) lg3 01:31 Drug: Ketorolac IVP 15 mg IVP once Route: IVP; Site: left antecubital; lg3 03:16 Follow up: Response: No adverse reaction lg3 03:04 Drug: Rocephin IV 1 grams IV at calculated rate once; Given slow IV push per pharmacy lg3 instructions Route: IV; Rate: calculated rate; Site: left antecubital; 03:05 Follow up: Response: No adverse reaction; IV Status: Completed infusion; IV Intake: [id number] 03:05 Drug: morphine IVP or IV 4 mg IVP once over 4 mins Route: IVP; Infused Over: 4 mins; lg3 Site: left antecubital; 03:15 Follow up: Response: No adverse reaction; Marked relief of symptoms; Pain is decreased lg3 Medication: 02/22 20:08 VIS not applicable for this client. me1 Intake: 02/23 03:05 IV: 10ml; Total: 10ml. lg3 Output: 02/22 22:45 Urine: 550ml; Total: 550ml. me1 23:53 Urine: 375ml; Total: 925ml. me1 02/23 01:40 Urine: 500ml (Voided); Total: 1425ml. lg3 Outcome: 02:54 Decision to Hospitalize by Provider. cp 06:14 Admitted to ER Hold. Please see [facility] for further documentation. lg3 06:14 Condition: stable 06:14 Instructed on the need for admit, 16:35 Patient left the ED. [id number] Signatures: Dispatcher [employer] EDTN Chet Swan PA PA cp Sherron Mcdonough RN RN lg3 Mayelin Winston RN RN 6 Genie Cash RN RN me1 Corrections: (The following items were deleted from the chart) 02/22 22:21 21:00 BP 117 / 70; Pulse 59bpm; Resp 17bpm; Pulse Ox 99% RA; me1 me1 02/23 03:07 03:06 BP 117 / 75; Pulse 66bpm; Resp 16bpm; Spontaneous; Pulse Ox 98% 2 lpm Nasal lg3 Cannula; lg3
[2023-02-23 03:02] LABS: AST/SGOT 9 U/L (15-37); Albumin 3.1 g/dL (3.4-5.0); Alkaline Phosphatase 106 U/L (45-117); Bilirubin Direct 0.7 mg/dL (0-0.2); Bilirubin Indirect, Calculated 0.5 mg/dL (0.2-0.8); Bilirubin Total 1.2 mg/dL (0.2-1.0); Lipase 20 U/L (13-75); Protein, Total 7.2 g/dL (6.4-8.2)
[2023-02-23 03:03] LABS: ALT/SGPT < 10 U/L (16-61)
[2023-02-23] MEDS ORDERED: CEFTRIAXONE 1000 MG/VIAL ONE ×2 (03:11→07:53)
[2023-02-23] MEDS ORDERED: MORPHINE 4 MG/ML SYR ONE (03:11)
[2023-02-23] MEDS ORDERED: ALBUTEROL 2.5 MG/3 ML NEB SOL NEB PRN ×2 (03:23→16:00)
[2023-02-23] MEDS ORDERED: ONDANSETRON 4 MG/2 ML VIAL IV PRN (03:23)
[2023-02-23] MEDS ORDERED: IPRATROPIUM BROM 0.5MG/2.5ML NEB PRN ×2 (03:23→16:00)
[2023-02-23] MEDS ORDERED: DIGOXIN 0.125 MG TABLET PO ONE ×2 (03:28→04:00)
[2023-02-23] MEDS ORDERED: DIGOXIN 0.25 MG TABLET ONE (03:55)
[2023-02-23 04:11] VITALS: BMI 25.7
[2023-02-23] MEDS: METOPROLOL TAR 50 MG TAB PO SCH ×2 (08:33→22:12)
[2023-02-23] MEDS: ISOSORBIDE MONO SR 30 MG TAB PO SCH (09:00)
[2023-02-23] MEDS: CEFTRIAXONE 1,000 MG in NA CHLORIDE 0.9% 50 ML IVPB SCH ×2 (09:00→22:11)
[2023-02-23] MEDS: TORSEMIDE 20 MG TAB PO SCH (09:00)
[2023-02-23] MEDS ORDERED: ACETAMINOPHEN 500 MG TAB ONE (11:53)
[2023-02-23] MEDS: ACETAMINOPHEN 500 MG TAB PO PRN ×2 (12:09→23:05)
--- NOTE | 2023-02-23 13:12 | P.PN ---
Date of Service: 02/23/23 Patient is currently on IV antibiotics, recommend conservative management.
[2023-02-23] MEDS: TRAMADOL HCL 50 MG TAB PO SCH ×2 (13:22→22:12)
[2023-02-23] MEDS ORDERED: TRAMADOL HCL 50 MG TAB ONE (13:38)
[2023-02-23] MEDS ORDERED: GLUCAGON 1 MG/VIAL IM PRN (15:24)
[2023-02-23] MEDS ORDERED: D10W 250 ML BAG IV PRN (15:31)
[2023-02-23] MEDS: INSULIN -REGULAR HUMAN 50 UNIT/0.5 ML ML SQ SCH ×2 (15:36→22:12)
[2023-02-23] MEDS ORDERED: INSULIN -REGULAR HUMAN 50 UNIT/0.5 ML ML ONE (15:47)
--- NOTE | 2023-02-23 16:48 | EKG ---
Test Date: 2023-02-22 Test Time: 20:04:45 Transmission Superintendent: RV MEASUREMENT RESULTS: Intervals: Rate: 61 VT: QRSD: 88 QT: 428 QTc: 430 Cool: P: VT: QRS: 99 T: 269 INTERPRETIVE STATEMENTS: Atrial fibrillation ST & T wave abnormality, consider inferior ischemia or digitalis effect Abnormal ECG Compared to ECG 08/14/2022 12:55:10 Right-axis deviation no longer present ST (T wave) deviation still present Possible ischemia still present Electronically Signed On 02-23-23 16:46:42 CDT by Kit Hewitt
--- NOTE | 2023-02-23 21:01 | HP ---
Date of Admission: 02/23/2023 Chief Complaint: Leg pain. History Of Present Illness: This is an 87-year-old male patient who lives at home with his , has multiple chronic complaints on an ongoing basis and decided to bring him yesterday to the hospital because she did not know what else to do for him, as she reports. I have discussed with and daughter this morning and patient's reports that there is no new complaints that she has noted and no worsening of his complaints, but he has constant complaints of leg pain, back pain, feeling tired, pain in his head, pain in his fingers, not feeling good, feeling weak. Do not have appetite. All these chronic complaints, he kept on having it. Lately he is having increasing confusion problem, which is an ongoing problem. He is not sleeping well at night. is having her own health issues and yesterday she did not know what else to do so she ended up calling ambulance. After he was evaluated in the ER, he was admitted to the hospital. After he came to emergency room, he had same issue about having multiple complaints every time you would ask him specific complaints or specific questioning, he would start talking about all these different complaints. Denies any abdominal pain, nausea, or vomiting. No fever. No chills. Medications: Farxiga 10 mg daily with breakfast, Digoxin 0.125 mg daily, Escitalopram 10 mg daily with breakfast, Ferrous fumarate 324 mg daily, Tresiba 22 units daily subcutaneous injection at bedtime, Isosorbide mononitrate 30 mg daily, Levothyroxine 50 mcg daily, Lisinopril 5 mg daily, Magnesium oxide 400 mg two times a day, Metoprolol tartrate 25 mg two times a day, Pantoprazole 40 mg daily, Xarelto 15 mg daily at bedtime, Ropinirole 0.5 mg daily at bedtime, Rosuvastatin 5 mg daily at bedtime, Tamsulosin 0.4 mg daily at bedtime, Torsemide 20 mg daily, Trazodone 100 mg daily at bedtime, Tramadol 50 mg, takes 1/2 tablet daily as needed for arthritis. Allergies: TO MORPHINE CAUSING HEADACHE, SULFA CAUSING NAUSEA. Review of Systems: SENIOR CLINICAL SAS PROGRAMMER: As mentioned above. Cardiovascular: As mentioned above. All other systems reviewed and negative. Past Medical History: Significant for COVID-19 infection in October 2021, hypothyroidism, type 2 diabetes mellitus, hypertension, hyperlipidemia, coronary artery disease, chronic diastolic heart failure, chronic atrial fibrillation, gastroesophageal reflux disease, diverticulosis, benign prostatic hypertrophy, osteoarthritis at multiple sites, anxiety, insomnia. Past Surgical History: Significant for coronary artery bypass surgery in 2017, carotid artery endarterectomy on both sides, surgery for right thumb fracture November 21, 2011 and bilateral knee replacement in the past. Family History: Father , had tuberculosis. Mother , details unknown. Brother , had congestive heart failure. Sister in motor vehicle accident. Social History: Negative for smoking and alcohol use. Physical Examination: Vital Signs: Temperature 98.4, pulse 59, respiratory rate 14, blood pressure 115/53, oxygen saturation 98% on 2 L nasal cannula oxygen. General: Awake, alert, oriented, not in distress. HEENT: Head atraumatic, normocephalic. Conjunctivae nonerythematous. Sclerae white. Mouth, no thrush or edema noted. Ears/Nose, no mass, lesion, discharge noted. Neck: Supple. No JVD, lymph nodes, bruit, thyromegaly noted. Lungs: Bilateral good equal air entry. Clear to auscultation. No rhonchi. No rales. Heart: Normal heart sounds, no murmur or gallop. Abdomen: Soft, bowel sounds normal. No guarding, rigidity, tenderness, mass, hepatosplenomegaly, distention, or bruit noted. Extremities: Bilateral trace to grade 1 pedal edema involving lower 1/4th of both lower extremities. Skin: No rash, ulcer, cellulitis. Lymphatics: No lymph node enlargement in neck, supraclavicular, infraclavicular region. Neuro: No focal neurological deficit. Chest: Unremarkable. External Genitalia: Deferred. Rectal: Deferred. Laboratory Data: White count 5.6, hemoglobin 8.7, platelets 252. INR 2.23. Sodium 137, potassium 3.9, chloride 101, bicarb 30, BUN 43, creatinine 1.81, glucose 227, magnesium 2.8, total bilirubin 1.2, direct bilirubin 0.7, AST 9, ALT less than 10, alkaline phosphatase 106. ProBNP 2291. Troponin 21.9. Lipase 20. Venous Doppler of lower extremity, no evidence of DVT in either leg. Chest x-ray stable right small to moderate pleural effusion with underlying airspace opacification. No pneumothorax. CAT scan of abdomen and abdominal ultrasound showing evidence of gallstones. Impression: 1. Congestive heart failure, chronic, diastolic. 2. Gallstones. 3. Anemia, chronic, unspecified. 4. Chronic kidney disease, stage 3B. 5. Type 2 diabetes mellitus. 6. Hypertension. 7. Senile dementia. 8. Coronary artery disease. 9. Hypothyroidism. 10. Hyperlipidemia. 11. Chronic atrial fibrillation. 13. GERD. 14. Diverticulosis. 15. Benign prostatic hypertrophy. 16. Osteoarthritis, multiple sites. 17. Anxiety. 18. Insomnia. Plan: We will go ahead and admit the patient to hospital for further evaluation and management of this problem. Patient is appropriate for inpatient and is expected to spend 2 midnights in hospital. At this time, the patient does not have any clinical evidence of acute cholecystitis. He does not have any abdominal pain and there is no abdominal tenderness. Considering that, there is absolutely no indication for any surgical intervention at this time. In fact, if the patient does require any surgery at any time in the future, he is at high risk from any surgical intervention. The patient is having increasing problem with confusion and is having increasingly difficult time to take care of him at home and today after my discussion with her and the patient's daughter, they both have expressed desire for patient to go to shelter facility upon discharge from the hospital and I have requested consultation from Social Service to assist with discharge planning. I have also discussed with and daughter regarding advance directives and as per decision made by family, DNR order was written in the chart. This is what the patient would have wanted as per my discussion with family. We will continue his home medications per order. Diabetes will be managed with sliding scale insulin and we will see him tomorrow for followup. Fall precaution was ordered. Physical Therapy was consulted. Once arrangements gets made for patient to go to shelter facility, we will be able to discharge him to go to such facility of the patient and family's choice. JAMEE/MODL Voice ID: [id number] AROLDO
[2023-02-24 03:12] LABS: Absolute Lymphocytes (CBC) 1.1 K/uL (0.7-4.9); Hematocrit 29.6 % (39.6-49.0); Lymphocytes % 16.1 % (15.3-44.8); MCV 78.8 fL (80-100); MPV 9.1 fL (7.6-11.3); Platelets 252 thou/uL (152-406); RBC Red Blood Cell Count 3.75 M/uL (4.33-5.43)
[2023-02-24 03:18] LABS: Potassium 4.1 mEq/L (3.5-5.1)
[2023-02-24] MEDS: ACETAMINOPHEN 500 MG TAB PO PRN ×3 (06:53→22:36)
[2023-02-24] MEDS ORDERED: MAGNESIUM HYDROXIDE 8% 30 ML PO ONE (07:40)
[2023-02-24] MEDS: HOME MED 1 EA UNK (Dapagliflozin Propanediol [Farxiga] 10 MG Tablet) PO SCH (09:00)
[2023-02-24] MEDS ORDERED: ROSUVASTATIN 5 MG TAB PO SCH (09:00)
[2023-02-24] MEDS: METOPROLOL TAR 25 MG TAB PO SCH ×2 (09:10→20:27)
[2023-02-24] MEDS: ESCITALOPRAM 20 MG TAB PO SCH (09:11)
[2023-02-24] MEDS: TRAMADOL HCL 50 MG TAB PO SCH ×2 (09:13→20:27)
[2023-02-24] MEDS: DIGOXIN 0.125 MG TABLET PO SCH (09:13)
[2023-02-24] MEDS: CEFTRIAXONE 1,000 MG in NA CHLORIDE 0.9% 50 ML IVPB SCH ×2 (09:14→20:35)
[2023-02-24] MEDS: LEVOTHYROXINE SOD 0.05 MG TABLET PO SCH (09:14)
[2023-02-24] MEDS: TORSEMIDE 20 MG TAB PO SCH (09:14)
[2023-02-24] MEDS: INSULIN -REGULAR HUMAN 50 UNIT/0.5 ML ML SQ SCH ×4 (09:15→20:34)
[2023-02-24] MEDS: PANTOPRAZOLE 40MG TABLET PO SCH (09:25)
[2023-02-24] MEDS: ISOSORBIDE MONO SR 30 MG TAB PO SCH (09:29)
--- NOTE | 2023-02-24 13:40 | RAD REPORT ---
EXAM DESCRIPTION: CT - Abdomen Pelvis Wo Contrast - 02/23/2023 6:43 am CLINICAL HISTORY: Upper abdomen fluid TECHNIQUE: Contiguous axial images obtained through the abdomen and pelvis without IV contrast. Sagi ttal and coronal reformatted images were provided. This exam was performed according to our departmental dose-optimization program, which includes autom ated exposure control, adjustment of the mA and/or kV according to patient size and/or use of iterati ve reconstruction technique. COMPARISON: August 15 FINDINGS: Lung bases: Partially loculated right pleural effusion, versus right empyema, similar to t prior examination. Confluent airspace disease in the right lung base, essentially unchanged. Partially visualized cardiomegaly. Liver: Hepatomegaly with perihepatic fluid, increased in the interval since the prior examination. Fl uid extends from the perihepatic space to the right paracolic gutter. Mildly enlarged portosystemic c ollaterals which may reflect portal hypertension. Gallbladder and biliary system: Gallbladder wall thickening and probable pericholecystic fluid which may be secondary to hepatic dysfunction or intrinsic gallbladder disease. Consider further evaluation with gallbladder ultrasound. Pancreas: Unremarkable Spleen: Unremarkable Adrenals: Unremarkable Kidneys: No calculi. No hydronephrosis. Stable hypoattenuating lesion in the mid polar region of th e left kidney most consistent with hemorrhagic cyst measuring approximately 1.2 cm in diameter. Renal vascular calcifications. No obstructive uropathy. Gl: No obstruction. No appreciable mucosal thickening. Sigmoid diverticulosis with no evidence of div erticulitis. Appendix: No findings to suggest acute appendicitis. Urinary bladder: Unremarkable Reproductive: Enlarged prostate. Fluid in the left inguinal canal. Lymph nodes: No pathologically enlarged lymph nodes. Peritoneum: No focal fluid collection. No free air. Vessels: No abdominal aortic aneurysm. Abdominal wall: Unremarkable Bones: status post internal fixation of the right hip. IMPRESSION: 1. Hepatomegaly with perihepatic fluid, increased in the interval since the prior exam ination. Fluid extends from the perihepatic space to the right paracolic gutter. Mildly enlarged port osystemic collaterals which may reflect portal hypertension. 2. Gallbladder wall thickening and probable pericholecystic fluid which may be secondary to hepatic dysfunction or intrinsic gallbladder disease. Consider further evaluation with gallbladder ultrasoun d. 3. Partially loculated right pleural effusion, versus right empyema, similar to the prior examinati on. Confluent airspace disease in the right lung base, essentially unchanged. Electronically signed by: Huber Domínguez MD 02/23/2023 1:36 AM CDT Due to temporary technical issues with the PACS/Fluency reporting system, reports are being signed by the in house radiologists without review as a courtesy to insure prompt reporting. The interpreting radiologist is fully responsible for the content of the report
--- NOTE | 2023-02-24 13:44 | RAD REPORT ---
EXAM DESCRIPTION: CT - Thorax Wo Tone - 02/23/2023 6:46 am CLINICAL HISTORY: CHEST PAIN. COMPARISON: CT chest, abdomen, and pelvis from August 15, 2022. TECHNIQUE: CT of the chest was performed without contrast. Axial, coronal, and sagittal reconstructi ons were created and sent to PACS. This exam was performed according to our departmental dose-optimization program, which includes autom ated exposure control, adjustment of the mA and/or kV according to patient size and/or use of iterati ve reconstruction technique. FINDINGS: Lungs and pleura: Unchanged appearance of the small chronic loculated right-sided pleural effusion with mild pleural thickening and adjacent suspected chronic rounded atelectasis. No new pulm onary opacities are identified. Mild motion degradation. No pleural effusion on the left. No pneumoth orax. Mediastinum and neck: No mediastinal lymphadenopathy by CT size criteria. Unremarkable appearance of the thyroid gland. Cardiovascular: Mild cardiomegaly status post suspected CABG. pericardial effusion. No thoracic aorti c aneurysm. Abdomen: Partially imaged trace upper abdominal free fluid. Musculoskeletal: No concerning osseous abnormality. Osteopenic appearance of the bones. IMPRESSION: 1. Partially imaged trace upper abdominal free fluid. 2. Unchanged chronic right lung findings including chronic small loculated pleural effusion. 3. Cardiomegaly. Electronically signed by: Jing Bethea MD 02/22/2023 11:16 PM CDT Due to temporary technical issues with the PACS/Fluency reporting system, reports are being signed by the in house radiologists without review as a courtesy to insure prompt reporting. The interpreting radiologist is fully responsible for the content of the report
--- NOTE | 2023-02-24 15:22 | RAD REPORT ---
EXAM DESCRIPTION: US - Abdomen Exam Limited - 02/23/2023 2:08 am CLINICAL HISTORY: 87 years, Male, RUQ tenderness;Abd pain COMPARISON: Prior CT scan of the abdomen and pelvis performed 02/23/2023. TECHNIQUE: Utilizing a curved array transducer, real-time ultrasound evaluation of the abdominal vis cera was performed. Color Doppler imaging was used to assess vascular flow. FINDINGS: Visualized portions of the liver suggestive of fatty infiltration. The gallbladder demonstrate the presence of layering echogenic material with minimal posterior shadow ing corresponding to cholelithiasis. There is trace of pericholecystic fluid. The common bile duct me asures 6.0 mm. No intra or extrahepatic biliary duct dilatation was identified. IMPRESSION: Cholelithiasis and trace of pericholecystic fluid. Electronically signed by: Darrick Veronica MD 02/23/2023 2:21 AM CDT Due to temporary technical issues with the PACS/Fluency reporting system, reports are being signed by the in house radiologists without review as a courtesy to insure prompt reporting. The interpreting radiologist is fully responsible for the content of the report
[2023-02-24] MEDS: RIVAROXABAN 15 MG TABLET PO SCH (19:41)
[2023-02-24] MEDS: TRAZODONE 50 MG TABLET PO SCH (20:27)
[2023-02-24] MEDS: TAMSULOSIN 0.4 MG SR CAP PO SCH (20:27)
--- NOTE | 2023-02-24 21:05 | PN ---
Date of Progress Note: 02/24/2023 Subjective: Patient was seen this morning for followup. He was lying in bed and did not have any ab dominal pain, nausea, vomiting. Did not have any chest pain or shortness of breath, but he was compl aining about his and reported that his has not been to see him. He does not know what is g oing on with his . He feels like his does not care about him and does not visit him and thi nks that there is something going on with the . I did inform him that his was here yesterda y morning and I did communicate with her yesterday morning and she did visit him yesterday morning an d after that, he realized that he was wrong about his impression. After I saw him during the course of day today, laundry housekeeper contacted me and informed me that the patient was complaining of chest pain, so when the laundry housekeeper went to talk to him at that time, he was very vague about his com plaints and then in fact, he actually denied laundry housekeeper that he was having any chest pain and w as complaining of just overall not feeling good. In any case after laundry housekeeper informed me abou t that, EKG and cardiac enzymes were ordered and his troponin level has come back elevated. Yesterda y, it was 21.9 and today it is 379. Physical Examination: HEENT: Unremarkable. Lungs: Clear to auscultation except diminished air entry in the right lower lung field unchanged fro m before. Heart: Sounds normal. Abdomen: Soft. Bowel sounds normal. No guarding, rigidity, tenderness, distention. Extremities: No leg edema. Laboratory Data: This morning, white count 6.9, hemoglobin 9.3, platelets 252. Sodium 136, potassiu m 4.1, chloride 102, bicarb 30, BUN 36, creatinine 1.48, glucose 180. Impression: 1.Iik-RC-iclopqcue myocardial infarction. 2.Hypertension. 3.Type 2 diabetes mellitus. 4.Anemia. 5.Hyperlipidemia. 6.Chronic anticoagulation therapy. Plan: We will go ahead and continue current medications. Continue current diabetes management. Yamini suresh takes Xarelto 15 mg daily at home, which will be continued. We will get an echo with Doppler. Consult Cardiology and I will see him tomorrow for followup. JAMEE/MODL Voice ID: [id number] Report ID: [id number]
[2023-02-25] MEDS: LEVOTHYROXINE SOD 0.05 MG TABLET PO SCH (05:52)
[2023-02-25] MEDS: ESCITALOPRAM 20 MG TAB PO SCH (08:24)
[2023-02-25] MEDS: DIGOXIN 0.125 MG TABLET PO SCH (08:25)
[2023-02-25] MEDS: CEFTRIAXONE 1,000 MG in NA CHLORIDE 0.9% 50 ML IVPB SCH ×2 (08:25→20:58)
[2023-02-25] MEDS: ROSUVASTATIN 10 MG TAB PO SCH (08:26)
[2023-02-25] MEDS: ISOSORBIDE MONO SR 30 MG TAB PO SCH (08:26)
[2023-02-25] MEDS: TORSEMIDE 20 MG TAB PO SCH (08:26)
[2023-02-25] MEDS: METOPROLOL TAR 25 MG TAB PO SCH ×2 (08:26→21:00)
[2023-02-25] MEDS: TRAMADOL HCL 50 MG TAB PO SCH ×2 (08:27→21:00)
[2023-02-25] MEDS: PANTOPRAZOLE 40MG TABLET PO SCH (08:27)
[2023-02-25] MEDS: INSULIN -REGULAR HUMAN 50 UNIT/0.5 ML ML SQ SCH ×4 (08:29→21:05)
[2023-02-25] MEDS: HOME MED 1 EA UNK (Dapagliflozin Propanediol [Farxiga] 10 MG Tablet) PO SCH (08:30)
[2023-02-25] MEDS ORDERED: lisinopriL 5 MG TAB PO SCH (09:00)
[2023-02-25] MEDS ORDERED: INSULIN GLARGINE 100 UNIT/ML SQ SCH (09:00)
[2023-02-25] MEDS: ACETAMINOPHEN 500 MG TAB PO PRN (14:46)
[2023-02-25] MEDS ORDERED: NA CHLORIDE 0.9% 500 ML IV ONE (15:32)
[2023-02-25] MEDS: RIVAROXABAN 15 MG TABLET PO SCH (16:23)
--- NOTE | 2023-02-25 16:39 | EKG ---
Test Date: 2023-02-24 Test Time: 15:02:37 Properties Supervisor: DIONNA MEASUREMENT RESULTS: Intervals: Rate: 59 CT: QRSD: 84 QT: 392 QTc: 388 [place]: P: CT: QRS: 93 T: 234 INTERPRETIVE STATEMENTS: Sinus rhythm Rightward axis ST & T wave abnormality, consider inferior ischemia ST & T wave abnormality, consider anterolateral ischemia Abnormal ECG Compared to ECG 02/22/2023 20:04:45 Right-axis deviation now present Atrial fibrillation no longer present ST (T wave) deviation still present Possible ischemia still present Electronically Signed On 02-25-23 16:38:08 CDT by Kit Hewitt
--- NOTE | 2023-02-25 20:04 | PN ---
Date of Progress Note: 02/25/2023 Subjective: The patient was seen this morning for followup. He was sitting at the bedside. Denied any complaints this morning when I saw him. No chest pain, no shortness of breath. Objective: Vital Signs: Reviewed. HEENT: Unremarkable. Lungs: Clear to auscultation. Heart: Sounds normal. Abdomen: Soft, bowel sounds normal. No guarding, rigidity, tenderness, distention. Extremities: No leg edema. Laboratory Data: Last troponin last night was 321.5. Impression: 1.Ogh-OP-ildiwyxdt myocardial infarction. 2.Hypertension. 3.Hyperlipidemia. 4.Atrial fibrillation. Plan: We will go ahead and continue current medications. Continue to follow with lead developer. Karina lee will be managed with insulin per order. Overall prognosis is guarded. JAMEE/MODL Voice ID: [id number] Report ID: [id number]
--- NOTE | 2023-02-25 20:19 | CON ---
Date of Consultation: 02/25/2023 Reason For Consultation: Positive troponin. History Of Present Illness: An 87-year-old male, past medical history of diabetes, dyslipidemia, hyp ertension, coronary artery disease, diastolic heart failure, atrial fibrillation, presented to the em ergency room with multiple complaints including leg pain, back pain, feeling tired, and no nausea, vo miting, or specific shortness of breath. Denies having any abdominal pain. No specific chest pain. Past Medical History: As outlined above in HPI. Medications: Refer to reconciliation sheet for detailed list. Allergies: ALLERGIC TO MORPHINE AND SULFA. Family History: No premature coronary disease or cancer. Social History: Does not smoke or drink. Does not use any drugs. Review of Systems: All systems were reviewed and they were negative except what mentioned in HPI. Physical Examination: Vital Signs: Reviewed. Head and Neck: Pupils are equal, reactive to light. No cervical lymphadenopathy. Neck: Supple. Thyroid is not enlarged. Lungs: Decreased breathing sounds bilaterally. No accessory muscle use or muscle retraction. Heart: Irregular. No extra sounds. Abdomen: Soft, nontender. Bowel sounds positive. No organomegaly. No masses or hernia. No rigidi ty or rebound. Extremities: There is trace edema. No clubbing, cyanosis. Intact pulses. Skin: No rashes. No nodule. Neurologic: Alert, awake, without acute focal deficits appreciated. Lymph Nodes: No cervical or axillary lymphadenopathy. Investigations: On echo, he has severe diastolic dysfunction by atrial enlargement and severe pulmon nina hypertension and his troponin is 321, BUN is 36, creatinine 1.48. Assessment/recommendation: 1.Acute on chronic diastolic heart failure exacerbation. The right ventricular systolic pressure is very high. He is on torsemide. The patient could benefit from IV diuresis throughout this hospital stay if the blood pressure allows with his blood pressure is on low side. 2.Severe tricuspid valve regurgitation. Due to his age probably he is not a surgical candidate. I recommend conservative medical management with strict low-salt diet and torsemide by mouth. 3.Dilated RV function appears to be normal. Definitely chronic thromboembolism needs to be ruled ou t, but this patient is already on anticoagulation with Xarelto, so no further investigation there is needed and the severely dilated RV could be due to the severe tricuspid valve regurgitation as well. Again, I do not believe this patient is a surgical candidate to fix this problem. 4.Elevated troponin. If the patient starts complaining of any chest pain, then I would recommend st ress test. Otherwise, monitor clinically and once his condition is stable, then he can have a stress test which can be done as an outpatient. /BRENNA Voice ID: [id number] Report ID: [id number]
[2023-02-25] MEDS: TAMSULOSIN 0.4 MG SR CAP PO SCH (20:58)
[2023-02-25] MEDS: ROPINIROLE HCL 0.25 MG TAB PO SCH (20:58)
[2023-02-25] MEDS: TRAZODONE 50 MG TABLET PO SCH (21:00)
[2023-02-26] MEDS: LEVOTHYROXINE SOD 0.05 MG TABLET PO SCH (05:17)
--- NOTE | 2023-02-26 07:22 | ECHO ---
HEIGHT: 5 ft 11 in WEIGHT: 185 lb 0 oz DATE OF STUDY: 02/25/[address]: Sean Vazquez MD 2-DIMENSIONAL: YES M.MODE: YES DOPPLER: YES COLOR FLOW: YES TDS: PORTABLE: YES DEFINITY: BUBBLE STUDY: DIAGNOSIS: CONGESTIVE HEART FAILURE/ NON ST ELEVATION MYOCARDIAL INFARCTION CARDIAC HISTORY: CATHERIZATION: SURGERY: YES PROSTHETIC VALVE: PACEMAKER: MEASUREMENTS (cm) DIASTOLIC (NORMALS) SYSTOLIC (NORMALS) IVSd 1.2 (0.6-1.2) LA Diam 5.0 (1.9-4.0) LVEF 56% LVIDd 3.0 (3.5-5.7) LVIDs 2.2 (2.0-3.5) %FS 28% LVPWd 1.2 (0.6-1.2) Ao Diam 2.9 (2.0-3.7) 2 DIMENSIONAL ASSESSMENT: RIGHT ATRIUM: ENLARGED LEFT ATRIUM: SEVERELY DIALTED RIGHT VENTRICLE: DILATED RIGHT VENTRICLE LEFT VENTRICLE: NORMAL TRICUSPID VALVE: SEVERE TRICUSPID REGURGITATION MITRAL VALVE: 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 NORMAL LEFT VENTRICULAR EJECTION FRACTION 55-60% WITH NORMAL WALL MOTION 2. SEVERE BI-ATRIAL ENLARGEMENT 3. DILATED RIGHT VENTRICLE WITH NORMAL FUNTION 4. SEVERE TRICUSPID REGURGITATION 5. 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 SEVERE PULMONARY HYPERTENSION WITH RIGHT VENTRICULAR SYSTOLIC PRESSURE GREATER THAN 60 mmHg 7. SEVERE DIASTOLIC DYSFUNCTION TECHNOLOGIST: ALBA BELLAMY
[2023-02-26] MEDS: INSULIN -REGULAR HUMAN 50 UNIT/0.5 ML ML SQ SCH ×4 (07:30→20:41)
[2023-02-26] MEDS: METOPROLOL TAR 25 MG TAB PO SCH ×2 (08:14→20:40)
[2023-02-26] MEDS: ISOSORBIDE MONO SR 30 MG TAB PO SCH (08:14)
[2023-02-26] MEDS: lisinopriL 5 MG TAB PO SCH (08:15)
[2023-02-26] MEDS: TRAMADOL HCL 50 MG TAB PO SCH ×2 (08:19→20:42)
[2023-02-26] MEDS: TORSEMIDE 20 MG TAB PO SCH ×2 (08:21→17:01)
[2023-02-26] MEDS: DIGOXIN 0.125 MG TABLET PO SCH (08:22)
[2023-02-26] MEDS: ESCITALOPRAM 20 MG TAB PO SCH (08:22)
[2023-02-26] MEDS: CEFTRIAXONE 1,000 MG in NA CHLORIDE 0.9% 50 ML IVPB SCH ×2 (08:23→20:35)
[2023-02-26] MEDS: HOME MED 1 EA UNK (Dapagliflozin Propanediol [Farxiga] 10 MG Tablet) PO SCH (09:00)
[2023-02-26] MEDS: PANTOPRAZOLE 40MG TABLET PO SCH (09:18)
[2023-02-26] MEDS: ROSUVASTATIN 10 MG TAB PO SCH (09:19)
[2023-02-26] MEDS: ACETAMINOPHEN 500 MG TAB PO PRN (16:06)
[2023-02-26] MEDS: RIVAROXABAN 15 MG TABLET PO SCH (16:07)
[2023-02-26] MEDS: ROPINIROLE HCL 0.25 MG TAB PO SCH (20:39)
[2023-02-26] MEDS: TAMSULOSIN 0.4 MG SR CAP PO SCH (20:40)
[2023-02-26] MEDS: TRAZODONE 50 MG TABLET PO SCH (20:42)
--- NOTE | 2023-02-26 21:35 | PN ---
Date of Progress Note: 02/26/2023 Subjective: Seen by bedside. Doing well. No chest pain. Review of Systems: No chest pain, shortness of breath, orthopnea, cough. No nausea, vomiting, diarrhea. No abdominal p ain. No history of urinary urgency. All other systems reviewed are negative. Physical Examination: Vital signs: Reviewed. Head and Neck: Pupils are equal, reactive to light. Intact eye movements. No JVD. No cervical lym phadenopathy. Neck is supple. Thyroid is not enlarged. Lungs: Clear to auscultation bilaterally. No rhonchi, wheezing, or crackles. No accessory muscle u se. Heart: Irregular. No extra sounds. Abdomen: Soft, nontender. Bowel sounds positive. No organomegaly. No masses or hernia. No rigidi ty or rebound. Extremities: No edema, clubbing, or cyanosis. Intact pulses. Skin: No rash. Neurologic: Alert, awake, oriented x3. No acute focal deficits appreciated. Lymph nodes: No cervical lymphadenopathy. Investigations: Labs were reviewed. Assessment/recommendations: 1.Elevated troponin. No chest pain. He needs a stress test, which can be done as an outpatient. 2.Acute on chronic congestive heart failure exacerbation, doing gradually better. Continue current management. SR/MODL Voice ID: [id number] Report ID: [id number]
--- NOTE | 2023-02-26 23:05 | PN ---
Date of Progress Note: 02/26/2023 Subjective: Patient was seen for followup this morning. He was lying in bed, not in any distress. Reported that he was just not feeling good, was feeling weak. He has been having low blood pressure since yesterday. Systolic blood pressure is around 90 to 100 range now. Objective: Vital Signs: Reviewed. HEENT: Unremarkable. Lungs: Clear to auscultation. No wheezing. No rales. Heart: Sounds normal. Abdomen: Soft, bowel sounds normal. No guarding, rigidity, tenderness, distention. Extremities: No leg edema. Impression: 1.Non-ST elevation myocardial infarction. 2.Coronary artery disease. 3.Atrial fibrillation. 4.Hypertension. 5.Hyperlipidemia. 6.Type 2 diabetes mellitus. Plan: We will go ahead and continue current medications. Continue current anticoagulation therapy. The patient is on oxygen replacement therapy. We will continue that. The patient was accepted to [facility] and our plan is to discharge him possibly tomorrow if his condition is stab le. JAMEE/MODL Voice ID: [id number] Report ID: [id number]
[2023-02-27 04:46] VITALS: TEMP 97.9
[2023-02-27] MEDS: LEVOTHYROXINE SOD 0.05 MG TABLET PO SCH (05:28)
[2023-02-27] MEDS: INSULIN -REGULAR HUMAN 50 UNIT/0.5 ML ML SQ SCH ×2 (07:30→12:16)
[2023-02-27] MEDS: CEFTRIAXONE 1,000 MG in NA CHLORIDE 0.9% 50 ML IVPB SCH (08:10)
[2023-02-27] MEDS: ROSUVASTATIN 10 MG TAB PO SCH (08:13)
[2023-02-27] MEDS: ISOSORBIDE MONO SR 30 MG TAB PO SCH (08:13)
[2023-02-27] MEDS: TORSEMIDE 20 MG TAB PO SCH (08:13)
[2023-02-27] MEDS: ESCITALOPRAM 20 MG TAB PO SCH (08:14)
[2023-02-27] MEDS: METOPROLOL TAR 25 MG TAB PO SCH (08:14)
[2023-02-27] MEDS: TRAMADOL HCL 50 MG TAB PO SCH (08:14)
[2023-02-27] MEDS: lisinopriL 5 MG TAB PO SCH (08:15)
[2023-02-27] MEDS: PANTOPRAZOLE 40MG TABLET PO SCH (08:15)
[2023-02-27] MEDS: DIGOXIN 0.125 MG TABLET PO SCH (08:15)
[2023-02-27] MEDS: HOME MED 1 EA UNK (Dapagliflozin Propanediol [Farxiga] 10 MG Tablet) PO SCH (08:16)
[2023-02-27 11:04] VITALS: BP 148/78
[2023-02-27] MEDS: ACETAMINOPHEN 500 MG TAB PO PRN (14:23)
[2023-02-27 16:11] VITALS: O2SAT 98
--- NOTE | 2023-02-28 00:17 | DS ---
Date of Discharge: 02/27/2023 Disposition: The patient was discharged to go to [facility]. Physical Examination: HEENT: Unremarkable. Lungs: Clear to auscultation. No rales. Diminished air entry in the lung bases. Not using accesso ry muscles of respiration. Heart: Sounds normal. Abdomen: Soft, bowel sounds normal. No guarding, rigidity, tenderness, distention. Extremities: Very trace leg edema involving the feet and ankle and lower 1/4th leg. Laboratory Data: Initial CBC, white count 5.6, hemoglobin 8.7, and platelet count 252 on 02/22/2023 and last CBC on 02/24/2023, white count 6.9, hemoglobin 9.3, platelets 252. His last troponin was 32 1.5 and the one before that was 329.2. Initial troponin was 21.9 with proBNP 2291. Initial chemistr y; sodium 137, potassium 3.9, chloride 101, bicarb 30, BUN 43, creatinine 1.81, glucose 227. Last cr eatinine 1.48 with a BUN 36. Sodium 136, potassium 4.1, chloride 102, bicarb 30 on 02/24/2023. Hospital Course: This is an 87-year-old pleasant male patient came into emergency room with complain ts of leg pain. Please see dictated H and P for more information. The patient was admitted to the [facility] and he is having multiple weight complaints at home and he was brought into emergency room by family member. He lives at home with his and it is becoming increasingly difficult for to take care of him at home. He is having worsening memory problem lately. After he was evaluated in the ER, he was admitted to the hospital. His home medications were continued and Cardiology consulta tion was obtained. ER physician thought the patient had acute cholecystitis and I was not convinced as patient did not have any specific signs or symptoms indicating acute cholecystitis. He does have gallstones with some small amount of pericholecystic fluid, which could be low albumin as well as con gestive heart failure problem. Clinically, he did not have any presentation consistent with cholecys titis. No abdominal pain. No nausea, vomiting. No tenderness in the right upper quadrant region. General Surgery consultation was obtained from Dr. Delgado. The patient did not need any surgical in tervention. Echocardiogram had shown normal ejection fraction with significant valvular heart diseas e and severe pulmonary hypertension. Obviously, the patient, due to his old age and very poor overal l condition, is not a candidate for any aggressive treatment and conservative medical management is w hat I would recommend for him. The patient's informed me at the time of admission that it is ge tting difficult for her to take care of him at home and she expressed desire for us to go ahead and h elp her make arrangements for [facility] placement so Social Service was consulted. The patient di d have episode of low blood pressure and requiring oxygen replacement. Overall, his condition has re mained much stable today. Vital signs are stable. Blood pressure with systolic blood pressure aroun d 140-145 range. The patient was discharged to go to [facility] today in stable condition. Discharge Diagnoses: 1.Congestive heart failure, chronic, diastolic. 2.Gallstones. 3.Anemia, chronic, unspecified. 4.Chronic kidney disease, stage IIIB. 5.Type 2 diabetes mellitus. 6.Hypertension. 7.Senile dementia. 8.Coronary artery disease. 9.Hypothyroidism. 10.Azw-TY-pqvoqltbd myocardial infarction. 11.Hyperlipidemia. 12.Chronic atrial fibrillation. 13.Gastroesophageal reflux disease. 14.Diverticulosis. 15.Benign prostatic hypertrophy. 16.Osteoarthritis, multiple sites. 17.Anxiety. 18.Insomnia. Discharge Medications And Instructions: 1.See copy of discharge order for details. Continue all home medications as outlined in discharge o rder. 2.Fall precautions. 3.Consult Physical therapy and Occupational therapy at [facility]. 4.CBC and Chem-7 to be obtained next week on Thursday, which is 03/02/2023. 5.Fingerstick blood sugar before breakfast and before dinner and [facility] physician to make deci miguel regarding sliding scale insulin use. 6.Advance directive. Patient's code status was do not resuscitate during this hospital stay. JAMEE/MODL Voice ID: [id number] Report ID: [id number]
== END 2023-02-27 15:20 | DRG 280 ==
LOC: ER 19:48 → ERHOLD 02-23 03:20 → 4TH 02-23 16:31
PROVIDERS: ADMIT Internal Medicine; ATTEND Internal Medicine
DX: I21.4 Non-ST elevation (NSTEMI) myocardial infarction (principal); I50.33 Acute on chronic diastolic (congestive) heart failure; I13.0 Hypertensive heart and chronic kidney disease with heart failure and stage 1 through stage 4 chronic kidney disease, or unspecified chronic kidney disease; I48.20 Chronic atrial fibrillation, unspecified; E03.9 Hypothyroidism, unspecified; E78.5 Hyperlipidemia, unspecified; K57.90 Diverticulosis of intestine, part unspecified, without perforation or abscess without bleeding; K80.20 Calculus of gallbladder without cholecystitis without obstruction; D64.9 Anemia, unspecified; E11.22 Type 2 diabetes mellitus with diabetic chronic kidney disease; N18.32 Chronic kidney disease, stage 3b; I25.10 Atherosclerotic heart disease of native coronary artery without angina pectoris; K21.9 Gastro-esophageal reflux disease without esophagitis; F03.90 Unspecified dementia, unspecified severity, without behavioral disturbance, psychotic disturbance, mood disturbance, and anxiety; F41.9 Anxiety disorder, unspecified; N40.0 Benign prostatic hyperplasia without lower urinary tract symptoms; M15.9 Polyosteoarthritis, unspecified; G47.00 Insomnia, unspecified; I07.1 Rheumatic tricuspid insufficiency; Z66 Do not resuscitate; Z95.1 Presence of aortocoronary bypass graft; Z79.01 Long term (current) use of anticoagulants
CPT/HCPCS: 36415; 71045; 71250; 74176; 76705; 80048; 80076; 82947; 83690; 83735; 83880; 84484; 85025; 85610; 93005; 93306; 93970; 96374; 96375; 97110; 97116; 97161; 97530; 99285; J0696; J1815; J1940; J2405; J7040